=== PATIENT | female | born 1960 ===

== ENCOUNTER 2024-01-27 07:18 | Inpatient (IN) | payer MEDICARE, SELFPAY ==
[2024-01-27] VITALS (40 sets, daily range): BP systolic 96–160; BP diastolic 69–104; PULSE 100–126; TEMP 36.3–37.1; O2SAT 89–98; BMI 16.1; BMI 15.8
--- NOTE | 2024-01-27 07:20 | ECG_ITS ---
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
--- NOTE | 2024-01-27 07:26 | XR_ITS ---
[address] [address] Patient Name: LUCERO MAI MRN: [id number] date: 1960 Sex: F Assigned Patient Location: ER Current Patient Location: ED.MAIN Accession/Order Number: [id number] Exam Date: 01/27/2024 07:33 Report Date: 01/27/2024 07:59 At the request of: ARNOLD WISEMAN Procedure: XR chest 1V EXAM: XR chest 1V INDICATION: chest pain/SOB. COMPARISON: Chest radiograph 11/14/2023. TECHNIQUE: Single frontal view of the chest FINDINGS: Normal cardiomediastinal contours. Prominence of the pulmonary vasculature and interstitial markings. Mild bibasilar airspace opacities versus atelectasis. No pleural effusion or pneumothorax. No acute osseous abnormality. XR/XR chest 1V IMPRESSION: 1. Suspected mild pulmonary interstitial edema. 2. Mild bibasilar infiltrates versus atelectasis. Electronically authenticated by: GANGA BONE Date: 01/27/2024 07:59
--- NOTE | 2024-01-27 07:31 | ED.SOB1 ---
HPI - SOB/Dyspnea General Chief Complaint: Shortness of Breath/Dyspnea Stated Complaint: SOB Time Seen by Provider: 01/27/24 07:23 Source: patient Mode of arrival: ambulance Limitations: no limitations History of Present Illness HPI Narrative: This patient comes to us by paramedics from her assisted. They gave her breathing treatment and route because of planned shortness of breath. She was awake alert on arrival here and able to answer questions she seems cognizant and of fairly good historian. We will get records from her [facility] which is where she is most recently hospitalized. She has not been here before. She is DNR CC by the paramedics history. She does not use oxygen at home but has used and does use nebulizer treatments on a regular basis. She says she was treated years ago for thyroid cancer with radiation and surgery. She denies any history of heart attacks in the past. She says she is breathing little easier. She states that she had some chest discomfort earlier but it is gone now. She normally is not oxygen dependent. Related Data Home Medications ?Medication ?Instructions ?Recorded ?Confirmed albuterol sulfate 2.5 mg/3 mL 2.5 mg inhalation Q4H PRN 01/27/24 01/27/24 (0.083 %) solution for nebulization shortness of breath or wheezing cephalexin 500 mg capsule 500 mg PO BID 01/27/24 01/27/24 escitalopram oxalate 5 mg/5 mL 10 mg PO DAILY 01/27/24 01/27/24 oral solution levothyroxine 112 mcg tablet 112 mcg feeding tube DAILY 01/27/24 01/27/24 lorazepam 0.5 mg tablet 0.5 mg PO Q6H PRN anxiety 01/27/24 01/27/24 metoclopramide HCl 5 mg tablet 5 mg PO TID 01/27/24 01/27/24 mirtazapine 7.5 mg tablet 7.5 mg PO BEDTIME 01/27/24 01/27/24 ondansetron 4 mg disintegrating 4 mg PO Q8H PRN nausea and vomiting 01/27/24 01/27/24 tablet prednisone 20 mg tablet 5 mg feeding tube BEDTIME 01/27/24 01/27/24 prednisone 5 mg tablet 10 mg feeding tube DAILY 01/27/24 01/27/24 Allergies Allergy/AdvReac Type Severity Reaction Status Date / Time Sulfa (Sulfonamide Allergy Severe Unknown Verified 01/27/24 07:35 Antibiotics) lactose Allergy Unknown Rash Verified 01/27/24 07:34 oak Allergy Unknown Rash Verified 01/27/24 07:34 pollen extracts Allergy Unknown Rash Verified 01/27/24 07:34 [facility] Medical History (Updated 01/27/24 @ 10:21 by Murali Garcia MD) History of syncope ?Z87.898 - Personal history of other specified conditions (ICD-10) History of myocardial infarction ?I25.2 - Old myocardial infarction (ICD-10) Hx of hypotension ?Z86.79 - Personal history of other diseases of the circulatory system (ICD-10) Dysphagia, oropharyngeal phase ?R13.12 - Dysphagia, oropharyngeal phase (ICD-10) History of sarcoidosis ?Z86.2 - Personal history of diseases of the blood and blood-forming organs and certain disorders involving the immune mechanism (ICD-10) Hypothyroidism ?E03.9 - Hypothyroidism, unspecified (ICD-10) History of anxiety disorder ?Z86.59 - Personal history of other mental and behavioral disorders (ICD-10) Gastro-esophageal reflux ?K21.9 - Gastro-esophageal reflux disease without esophagitis (ICD-10) Dyskinesia of esophagus ?K22.4 - Dyskinesia of esophagus (ICD-10) History of thyroid cancer ?Z85.850 - Personal history of malignant neoplasm of thyroid (ICD-10) Gastroparesis ?K31.84 - Gastroparesis (ICD-10) Surgical History (Updated 01/27/24 @ 08:03 by Jose Ramirez) Hx of gastrostomy ?Z98.890 - Other specified postprocedural states (ICD-10) Exam Narrative Exam Narrative: This is an elderly female who appears older than stated age. However her cognition and mentation are actually intact. There is no evidence of confusion or altered mental status. Her vital signs do show a persistent tachycardia. Her pulse oximetry on supplemental oxygen remained stable at 94 to 96%. She states that she does not use oxygen at home but she does have a nebulizer machine at home that she uses in the past. She states that they were not giving her nebulizer treatments at the nursing care facility. She did receive a neb by the paramedics and route here. She is oriented x 3 cognition mental status cranial nerves are all normal. She is thin and cachectic. Her lungs show some scattered rhonchi with slight wheezing. Heart sounds are tachycardic with no murmur. Abdomen is soft and supple there is no guarding rebound or rigidity. Extremities show no evidence of DVT phlebitis edema or swelling. Constitutional Vital Signs, click to edit/add: Last Vital Signs Temp 98.8 F 01/27/24 07:21 Pulse 110 H 01/27/24 09:30 Resp 17 01/27/24 09:30 BP 159/99 H 01/27/24 09:30 Pulse Ox 96 01/27/24 09:53 O2 Del Method Nasal Cannula 01/27/24 09:53 O2 Flow Rate 2 01/27/24 09:53 Course Vital Signs Vital signs: Vital Signs Pulse Oximetry 96 01/27/24 07:20 Temperature 98.8 F 01/27/24 07:21 Pulse Rate 110 H 01/27/24 09:30 Respiratory Rate 17 01/27/24 09:30 Blood Pressure 159/99 H 01/27/24 09:30 Pulse Oximetry 96 01/27/24 09:53 Oxygen Delivery Method Nasal Cannula 01/27/24 09:53 Oxygen Delivery Flow Rate 2 01/27/24 09:53 MDM - SOB/Dyspnea MDM Narrative Medical decision making narrative: We did receive records from her previous admission in [place]. She was found to have orthostatic hypotension and severe hypothyroidism at that facility. Her chest x-ray today suggests infiltrative process in the bases but no lobar pneumonia. When we wean her off the oxygen her pulse oximetry rapidly drops down to 90% at which time we will reapply the oxygen. She was given intravenous Solu-Medrol here. Her white blood cell count is substantially elevated versus her last admission. We spoke with the hospitalist here and he will admit her and will write for antibiotics. Lab Data Labs: Lab Results 01/27/24 01/27/24 Range/Units 07:39 07:50 WBC 20.6 H (4.0-11.0) 10^3/uL RBC 3.92 L (4.20-5.40) 10^6/uL Hgb 11.2 L (12.0-16.0) g/dL Hct 33.7 L (36.0-48.0) % MCV 86.0 (81.0-99.0) fL MCH 28.6 (26.7-34.0) pg MCHC 33.2 (29.9-35.2) g/dL RDW 17.4 H (11.0-15.0) % Plt Count 348 (150-450) 10^3/uL MPV 9.4 L (9.5-13.5) fL Neut % (Auto) 86.0 H (43.0-75.0) % Lymph % (Auto) 6.7 L (20.5-60.0) % [place] % (Auto) 5.3 (1.7-12.0) % Eos % (Auto) 1.0 (0.9-7.0) % Baso % (Auto) 0.4 (0.2-2.0) % Neut # (Auto) 17.7 H (1.4-6.5) 10^3/uL Lymph # (Auto) 1.4 (1.2-3.8) 10^3/uL [place] # (Auto) 1.1 H (0.3-0.8) 10^3/uL Eos # (Auto) 0.2 (0.0-0.7) 10^3/uL Baso # (Auto) 0.1 (0.0-0.1) 10^3/uL Abs Immat Gran (auto) 0.12 H (0.00-0.03) 10^3/uL Imm/Tot Granulo (auto) 0.6 H (0.0-0.5) % Sodium 137 (136-145) mmol/L Potassium 4.0 (3.5-5.1) mmol/L Chloride 98 (98-107) mmol/L Carbon Dioxide 30.2 (21.0-32.0) mmol/L Anion Gap 12.8 BUN 24.0 H (7.0-18.0) mg/dL Creatinine 0.83 (0.55-1.02) mg/dL Est GFR ( Amer) >60 (>=60) Est GFR (Non-Af Amer) >60 (>=60) BUN/Creatinine Ratio 28.9 Glucose 89 (74-106) mg/dL Calcium 9.1 (8.5-10.1) mg/dL Total Bilirubin 0.6 (0.2-1.0) mg/dL AST 33 (15-37) U/L ALT 81 H (14-59) U/L Alkaline Phosphatase 158 H (46-116) U/L Troponin I High Sens 16.4 (4.0-51.3) pg/mL Total Protein 6.4 (6.4-8.2) g/dL Albumin 3.0 L (3.4-5.0) g/dL Globulin 3.4 g/dL Albumin/Globulin Ratio 0.9 Influenza Type A Ag Negative Influenza Type B Ag Negative RSV Antigen Not detected (NOT DETECTE) SARS-CoV-2 Ag (CV2AG) Negative (NEGATIVE) Discharge Plan Discharge Chief Complaint: Shortness of Breath/Dyspnea Clinical Impression: Acute infective exacerbation of chronic obstructive airway disease Patient Disposition: Admitted as Observation Time of Disposition Decision: 10:21 Prescriptions / Home Meds: No Action albuterol sulfate 2.5 mg /3 mL (0.083 %) solution for nebulization 2.5 mg inhalation Q4H PRN (Reason: shortness of breath or wheezing) lorazepam 0.5 mg tablet 0.5 mg PO Q6H PRN (Reason: anxiety) cephalexin 500 mg capsule 500 mg PO BID escitalopram oxalate 5 mg/5 mL solution 10 mg PO DAILY levothyroxine 112 mcg tablet 112 mcg feeding tube DAILY metoclopramide HCl 5 mg tablet 5 mg PO TID mirtazapine 7.5 mg tablet 7.5 mg PO BEDTIME ondansetron 4 mg tablet,disintegrating 4 mg PO Q8H PRN (Reason: nausea and vomiting) prednisone 5 mg tablet 10 mg feeding tube DAILY prednisone 20 mg tablet 5 mg feeding tube BEDTIME Print Language: Wolof Referrals: YANN BOYER [Primary Care Provider] - 1 week
[2024-01-27] MEDS: METHYLPREDNISOLONE SOD SUCC PF 125 MG/2 ML VIAL IVP ×3 (07:44→20:42)
[2024-01-27 08:18] LABS: Basophils Absolute Auto 0.1 10^3/uL (0.0-0.1); Basophils Percent Auto 0.4 % (0.2-2.0); Eosinophils Absolute Auto 0.2 10^3/uL (0.0-0.7); Hematocrit 33.7 % (36.0-48.0); Hemoglobin 11.2 g/dL (12.0-16.0); Immature Granulocytes Abs Auto 0.12 10^3/uL (0.00-0.03); Immature Granulocytes Pct Auto 0.6 % (0.0-0.5); Lymphocytes Absolute Auto 1.4 10^3/uL (1.2-3.8); Lymphocytes Percent Auto 6.7 % (20.5-60.0); Mean Corpuscular HGB Conc 33.2 g/dL (29.9-35.2); Mean Corpuscular Hemoglobin 28.6 pg (26.7-34.0); Mean Platelet Volume 9.4 fL (9.5-13.5); Monocytes Absolute Auto 1.1 10^3/uL (0.3-0.8); Monocytes Percent Auto 5.3 % (1.7-12.0); Neutrophils Absolute Auto 17.7 10^3/uL (1.4-6.5); Platelet Count 348 10^3/uL (150-450); Red Blood Count 3.92 10^6/uL (4.20-5.40); Red Cell Distribution Width 17.4 % (11.0-15.0); White Blood Count 20.6 10^3/uL (4.0-11.0)
[2024-01-27 08:19] LABS: Alanine Aminotransferase 81 U/L (14-59); Albumin Globulin Ratio 0.9; Alkaline Phosphatase 158 U/L (46-116); Anion Gap 12.8; Aspartate Amino Transferase 33 U/L (15-37); BUN Creatinine Ratio 28.9; Bilirubin Total 0.6 mg/dL (0.2-1.0); Calcium 9.1 mg/dL (8.5-10.1); Carbon Dioxide 30.2 mmol/L (21.0-32.0); Chloride 98 mmol/L (98-107); Estimated GFR (African America >60 (>=60); Estimated GFR (Non-African Ame >60 (>=60); Globulin 3.4 g/dL; Glucose 89 mg/dL (74-106); Sodium 137 mmol/L (136-145); Total Protein 6.4 g/dL (6.4-8.2)
[2024-01-27 08:22] LABS: Troponin I High Sensitivity 16.4 pg/mL (4.0-51.3)
[2024-01-27 08:37] LABS: Influenza Virus A Antigen Negative; Influenza Virus B Antigen Negative; Internal Control Within Normal Limits
[2024-01-27 08:38] LABS: Internal Control Within Normal Limits; Respiratory Syncytial Virus Not Detected (NOT DETECTE); SARS-CoV-2 Ag NEGATIVE (NEGATIVE)
[2024-01-27] MEDS: LORAZEPAM 2 MG/ML VIAL 0.5 MG IV (09:10)
--- NOTE | 2024-01-27 11:20 | US_ITS ---
[address] [address] Patient Name: LUCERO MAI MRN: [id number] date: 1960 Sex: F Assigned Patient Location: Current Patient Location: Accession/Order Number: [id number] Exam Date: 01/27/2024 15:09 Report Date: 01/27/2024 16:31 At the request of: ALBANIA FIELDS Procedure: US abdomen complete EXAM: US abdomen complete HISTORY: Abd Pain COMPARISON: 08/18/2017. TECHNIQUE: Ultrasound abdomen complete. FINDINGS: Hepatic echotexture is uniform. No focal hepatic lesions. Appropriate hepatopetal flow within the portal venous system. No biliary ductal dilatation. The common bile duct measures 3 mm in diameter. Prior cholecystectomy. Unremarkable pancreas. Normal appearance and size of the spleen. The right kidney measures 9.8 cm in length; left kidney measures 10.8 cm in length. No evidence of hydronephrosis or renal calculus. Unremarkable appearance of the visualized aspects of the abdominal aorta and inferior vena cava. US/US abdomen complete IMPRESSION: 1. Prior cholecystectomy. 2. Otherwise unremarkable abdominal sonogram. Electronically authenticated by: CHINEDU CINTRON Date: 01/27/2024 16:31
--- NOTE | 2024-01-27 11:27 | P.HP_ITS ---
HPI H&P: HPI History of Present Illness Chief complaint: SOB, ACUTE INFECTIVE, COPD EXACERBATION Narrative: Patient presented to the emergency with increasing cough and shortness of breath. Trying to obtain the full history but it sounds like she was at a intermediate for rehab. Recently discharged from outside facility. Found to have severe hypothyroidism there. Over the last couple days she has had increasing cough with sputum production. Patient had significant hypoxia at the intermediate. Presented here. With likely acute exacerbation of COPD likely secondary to healthcare acquired pneumonia. When I saw patient in the emergency room, she was sleeping better awakened easily. Definitely uncomfortable with her breathing with conversational dyspnea. Audible wheezes without a stethoscope. Moist cough throughout the evaluation. Opioid HPI Opioid Management Most Recent Pain and Opioid Data: No Data to Display Review of Systems ROS Status of ROS 10 or more systems reviewed and unremark able except as noted in history and below Constitutional Denies: fever or chills Respiratory Reports: shortness of breath, cough, wheezing, change in phlegm color and chest congestion [facility] Medical History (Updated 01/27/24 @ 10:21 by Murali Garcia MD) History of syncope ?Z87.898 - Personal history of other specified conditions (ICD-10) History of myocardial infarction ?I25.2 - Old myocardial infarction (ICD-10) Hx of hypotension ?Z86.79 - Personal history of other diseases of the circulatory system (ICD- 10) Dysphagia, oropharyngeal phase ?R13.12 - Dysphagia, oropharyngeal phase (ICD-10) History of sarcoidosis ?Z86.2 - Personal history of diseases of the blood and blood-forming organs and certain disorders involving the immune mechanism (ICD-10) Hypothyroidism ?E03.9 - Hypothyroidism, unspecified (ICD-10) History of anxiety disorder ?Z86.59 - Personal history of other mental and behavioral disorders (ICD-10) Gastro-esophageal reflux ?K21.9 - Gastro-esophageal reflux disease without esophagitis (ICD-10) Dyskinesia of esophagus ?K22.4 - Dyskinesia of esophagus (ICD-10) History of thyroid cancer ?Z85.850 - Personal history of malignant neoplasm of thyroid (ICD-10) Gastroparesis ?K31.84 - Gastroparesis (ICD-10) Surgical History (Updated 01/27/24 @ 08:03 by Jose Ramirez) Hx of gastrostomy ?Z98.890 - Other specified postprocedural states (ICD-10) Meds Home Medications and Allergies Home Medications ?Medication ?Instructions ?Recorded ?Confirmed ?Type albuterol sulfate 2.5 mg/3 mL 2.5 mg inhalation Q4H PRN 01/27/24 01/27/24 History (0.083 %) solution for nebulization shortness of breath or wheezing cephalexin 500 mg capsule 500 mg PO BID 01/27/24 01/27/24 History escitalopram oxalate 5 mg/5 mL 10 mg PO DAILY 01/27/24 01/27/24 History oral solution levothyroxine 112 mcg tablet 112 mcg feeding tube DAILY 01/27/24 01/27/24 History lorazepam 0.5 mg tablet 0.5 mg PO Q6H PRN anxiety 01/27/24 01/27/24 History metoclopramide HCl 5 mg tablet 5 mg PO TID 01/27/24 01/27/24 History mirtazapine 7.5 mg tablet 7.5 mg PO BEDTIME 01/27/24 01/27/24 History ondansetron 4 mg disintegrating 4 mg PO Q8H PRN nausea and vomiting 01/27/24 01/27/24 History tablet prednisone 20 mg tablet 5 mg feeding tube BEDTIME 01/27/24 01/27/24 History prednisone 5 mg tablet 10 mg feeding tube DAILY 01/27/24 01/27/24 History Allergies Allergy/AdvReac Type Severity Reaction Status Date / Time Sulfa (Sulfonamide Allergy Severe Unknown Verified 01/27/24 07:35 Antibiotics) lactose Allergy Unknown Rash Verified 01/27/24 07:34 oak Allergy Unknown Rash Verified 01/27/24 07:34 pollen extracts Allergy Unknown Rash Verified 01/27/24 07:34 Exam Constitutional Vital Signs, click to edit/add: Last Vital Signs Temp 98.8 F 01/27/24 07:21 Pulse 108 H 08/31/24 11:10 Resp 21 H 01/27/24 11:10 BP 131/96 H 01/27/24 11:00 Pulse Ox 95 01/27/24 11:10 O2 Del Method Nasal Cannula 01/27/24 09:53 O2 Flow Rate 2 01/27/24 09:53 Documenting provider has reviewed patient's vital signs: yes Common normals: apparent distress (Moderate distress secondary to difficulty breathing) Cardio Common normals: regular rhythm; irregular rate Rate: tachycardic GI Common normals: negative for Normal to inspection, nondistended, normoactive bowel sounds present (Feeding tube in place) Extremity Common normals: full ROM, normal capillary refill, no clubbing, cyanosis or edema and no calf tenderness Results Labs Labs: Short CBC 01/27/24 Range/Units 07:50 WBC 20.6 H (4.0-11.0) 10^3/uL Hgb 11.2 L (12.0-16.0) g/dL Hct 33.7 L (36.0-48.0) % Plt Count 348 (150-450) 10^3/uL BMP 01/27/24 07:50 Sodium 137 Potassium 4.0 Chloride 98 Carbon Dioxide 30.2 BUN 24.0 H Creatinine 0.83 Glucose 89 Calcium 9.1 Liver Function 01/27/24 Range/Units 07:50 Total Bilirubin 0.6 (0.2-1.0) mg/dL AST 33 (15-37) U/L ALT 81 H (14-59) U/L Alkaline Phosphatase 158 H (46-116) U/L Albumin 3.0 L (3.4-5.0) g/dL Assessment and Plan Assessment and Plan (1) Acute infective exacerbation of chronic obstructive airway disease: (2) History of myocardial infarction: (3) Hx of hypotension: (4) Dysphagia, oropharyngeal phase: (5) Hypothyroidism: (6) Gastro-esophageal reflux: (7) History of thyroid cancer: Plan Admission findings: Tachycardia, respiratory distress, acute hypoxia with O2 saturation of 89% on 2 L. Hypotension with blood pressure 96/69, leukocytosis, chest x-ray abnormal with bilateral infiltrates in the lower lobes. Consistent with possible early pneumonia causing acute exacerbation of COPD and severe sepsis. Severe sepsis-tachycardia, respiratory distress, hypoxia, leukocytosis-lactate pending, secondary to acute exacerbation of COPD secondary to healthcare acquired bilateral lower lobe pneumonia. IV antibiotics, aerosol treatments. Unable to use albuterol, Xopenex secondary to tachycardia. Vancomycin and Zosyn for antibiotic coverage Leukocytosis-is likely secondary to the pneumonia as outlined above monitor daily Elevated BUN consistent with mild dehydration-IV fluids Elevated liver function test-this is likely related to her overall generalized illness. Will monitor daily. History of thyroid cancer unable to swallow and decrease gastric motility-currently has feeding tube in place, will maintain current recommendations for her tube feeds. Consult to dietitian Iron deficiency anemia-monitor daily. Concerning at this point due to mild dehydration, will likely have decreasing hemoglobin significantly tomorrow. Held off on medication related thromboembolism prophylaxis Elevated liver function test-check ultrasound of abdomen Hypothyroidism-check TSH. With tachycardia likely related to the sepsis, could not rule out thyroid induced tachycardia as well Insomnia-continue with home medications CODE STATUS-verbal report of DNR-cc-will verify later today. Admission status: Patient with healthcare acquired pneumonia resulting in severe sepsis and acute exacerbation of COPD-medically necessary treatment will span 2 midnights. Inpatient status.
[2024-01-27 11:44] LABS: Bilirubin Urine NEGATIVE (NEGATIVE); Blood Urine NEGATIVE (NEGATIVE); Clarity Urine CLEAR (CLEAR); Color Urine LT. YELLOW (YELLOW); Glucose Urine UA NEGATIVE (NEGATIVE); Ketones Urine NEGATIVE (NEGATIVE); Leukocyte Esterase Urine SMALL (NEGATIVE); Nitrite Urine NEGATIVE (NEGATIVE); Protein Urine NEGATIVE (NEG/TRACE)
[2024-01-27 11:50] LABS: Bacteria Urine MODERATE #/HPF (NONE SEEN); Mucus Urine TRACE (NONE SEEN); RBC Urine NONE SEEN #/HPF (0-2); Squamous Epithelial Cell Urine RARE #/LPF (NONE/RARE); Transitional Epi Cells Urine RARE #/LPF (NONE SEEN)
[2024-01-27 11:51] LABS: Cast Seen? NONE SEEN #/LPF (NONE SEEN); Crystals Seen? None Seen #/HPF (None Seen); Urine Culture Indicated ALREADY ORDERED
[2024-01-27 12:15] LABS: Magnesium 2.1 mg/dL (1.8-2.4)
[2024-01-27 12:25] LABS: Lactate/Lactic Acid 1.8 mmol/L (0.4-2.0)
[2024-01-27] MEDS: LACTATED RINGER'S SOLUTION 1,000 ML 100 ML IV (14:10)
[2024-01-27] MEDS: PANTOPRAZOLE SODIUM 40 MG VIAL IV (14:10)
[2024-01-27] MEDS: PIPERACILLIN SODIUM/TAZOBACTAM 3.375 GM in 0.9 % SODIUM CHLORIDE 50 ML IV ×2 (15:37→22:17)
--- NOTE | 2024-01-27 15:48 | PC.NURSE ---
Jazmyn Rivera called [facility] earlier and they faxed over the patients med rec but it was missing pages. They never sent over the patients DRNCCA form. Engine Oiler has attempted to call [facility] twice to get the missing medication list to be able to start the patient's tube feed and to get the DRNCCA form. They are not answering and it says their memory is full.
[2024-01-27] MEDS: IPRATROPIUM BROMIDE 0.5 MG/2.5 ML VIAL.NEB IH ×2 (16:17→22:15)
[2024-01-27] MEDS: LEVALBUTEROL HCL 0.63 MG/3 ML VIAL.NEB IH ×2 (16:17→22:15)
[2024-01-27] MEDS: METOCLOPRAMIDE HCL 10 MG TABLET J-TUBE ×2 (16:26→22:17)
[2024-01-27] MEDS: ONDANSETRON PF 4 MG/2 ML VIAL IV (17:17)
[2024-01-27] MEDS: LORAZEPAM 0.5 MG TABLET PO ×2 (17:25→23:52)
[2024-01-27] MEDS: VANCOMYCIN HCL 750 MG in 0.9 % SODIUM CHLORIDE 250 ML 150 MG IV (20:42)
[2024-01-27] MEDS: BUDESONIDE 0.5 MG/2 ML AMPULE NEB IH (22:15)
[2024-01-27] MEDS: MIRTAZAPINE 15 MG TABLET 7.5 MG PO (22:17)
[2024-01-28] VITALS (24 sets, daily range): BP systolic 136–180; BP diastolic 48–100; PULSE 99–119; TEMP 36.4–36.6; O2SAT 91–96
[2024-01-28] MEDS: LACTATED RINGER'S SOLUTION 1,000 ML 100 ML IV ×2 (01:19→08:59)
[2024-01-28] MEDS: METHYLPREDNISOLONE SOD SUCC PF 125 MG/2 ML VIAL IVP ×2 (02:12→08:59)
[2024-01-28] MEDS: HYDRALAZINE HCL 20 MG/ML VIAL 10 MG IVP ×2 (03:46→23:56)
[2024-01-28] MEDS: IPRATROPIUM BROMIDE 0.5 MG/2.5 ML VIAL.NEB IH ×4 (04:55→23:00)
[2024-01-28] MEDS: LEVALBUTEROL HCL 0.63 MG/3 ML VIAL.NEB IH ×4 (04:55→23:00)
[2024-01-28] MEDS: PIPERACILLIN SODIUM/TAZOBACTAM 3.375 GM in 0.9 % SODIUM CHLORIDE 50 ML IV ×3 (05:09→23:06)
[2024-01-28 06:15] LABS: Basophils Percent Auto 0.2 % (0.2-2.0); Hematocrit 29.7 % (36.0-48.0); Hemoglobin 9.9 g/dL (12.0-16.0); Immature Granulocytes Abs Auto 0.22 10^3/uL (0.00-0.03); Immature Granulocytes Pct Auto 1.1 % (0.0-0.5); Lymphocytes Absolute Auto 0.5 10^3/uL (1.2-3.8); Lymphocytes Percent Auto 2.5 % (20.5-60.0); Mean Corpuscular HGB Conc 33.3 g/dL (29.9-35.2); Mean Corpuscular Hemoglobin 28.6 pg (26.7-34.0); Mean Corpuscular Volume 85.8 fL (81.0-99.0); Mean Platelet Volume 9.3 fL (9.5-13.5); Monocytes Absolute Auto 0.5 10^3/uL (0.3-0.8); Monocytes Percent Auto 2.3 % (1.7-12.0); Neutrophils Absolute Auto 18.8 10^3/uL (1.4-6.5); Neutrophils Percent Auto 93.9 % (43.0-75.0); Platelet Count 307 10^3/uL (150-450); Red Blood Count 3.46 10^6/uL (4.20-5.40); Red Cell Distribution Width 17.2 % (11.0-15.0)
[2024-01-28 06:32] LABS: Alanine Aminotransferase 58 U/L (14-59); Albumin Globulin Ratio 0.8; Albumin Level 2.5 g/dL (3.4-5.0); Alkaline Phosphatase 141 U/L (46-116); Anion Gap 12.4; Aspartate Amino Transferase 20 U/L (15-37); BUN Creatinine Ratio 30.7; Bilirubin Total 0.5 mg/dL (0.2-1.0); Calcium 8.9 mg/dL (8.5-10.1); Carbon Dioxide 28.6 mmol/L (21.0-32.0); Chloride 101 mmol/L (98-107); Estimated GFR (African America >60 (>=60); Estimated GFR (Non-African Ame >60 (>=60); Globulin 3.3 g/dL; Glucose 148 mg/dL (74-106); Sodium 138 mmol/L (136-145); Total Protein 5.8 g/dL (6.4-8.2)
[2024-01-28 08:19] LABS: Free T3 0.64 pg/mL (2.18-3.98)
[2024-01-28] MEDS: VANCOMYCIN HCL 750 MG in 0.9 % SODIUM CHLORIDE 250 ML 250 MG IV ×2 (08:59→22:01)
[2024-01-28] MEDS: ACETAMINOPHEN 500 MG TABLET 1000 MG PO ×2 (09:00→18:54)
[2024-01-28] MEDS: LORAZEPAM 0.5 MG TABLET PO ×3 (09:00→23:01)
[2024-01-28] MEDS: METOCLOPRAMIDE HCL 10 MG TABLET J-TUBE ×4 (09:00→21:39)
[2024-01-28] MEDS: ESCITALOPRAM 10 MG TABLET J-TUBE (09:00)
[2024-01-28] MEDS: GLUCERNA 1.5 CAL 237 ML LIQUID PO ×3 (09:00→18:55)
--- NOTE | 2024-01-28 09:57 | P.DS_ITS ---
DS: Providers Provider Date of admission: 01/27/24 11:21 Primary care physician: YANN BOYER Consults: 01/27/24 Consult to Dietitian Routine Reason for consultation: Poor nutrition 01/27/24 11:15 Consult to Dietitian Routine Reason for consultation: tube feeds Has provider been notified: No Occupational Therapy Eval and Treat Routine Reason for consultation: Only if needed for Rehab Has provider been notified: No Physical Therapy Eval and Treat Routine Reason for consultation: Eval and Treat Has provider been notified: No DS: Diagnosis Discharge Diagnosis (1) Acute infective exacerbation of chronic obstructive airway disease: (2) History of myocardial infarction: (3) Hx of hypotension: (4) Dysphagia, oropharyngeal phase: (5) Hypothyroidism: (6) Gastro-esophageal reflux: (7) History of thyroid cancer: Plan Admission findings: Tachycardia, respiratory distress, acute hypoxia with O2 saturation of 89% on 2 L. Hypotension with blood pressure 96/69, leukocytosis, chest x-ray abnormal with bilateral infiltrates in the lower lobes. Consistent with possible early pneumonia causing acute exacerbation of COPD and severe sepsis. Severe sepsis-tachycardia, respiratory distress, hypoxia, leukocytosis-lactate pending, secondary to acute exacerbation of COPD secondary to healthcare acquired bilateral lower lobe pneumonia. IV antibiotics, aerosol treatments. Unable to use albuterol, Xopenex secondary to tachycardia. Vancomycin and Zosyn for antibiotic coverage Leukocytosis-is likely secondary to the pneumonia as outlined above monitor daily Elevated BUN consistent with mild dehydration-IV fluids Elevated liver function test-this is likely related to her overall generalized illness. Will monitor daily. History of thyroid cancer unable to swallow and decrease gastric motility- currently has feeding tube in place, will maintain current recommendations for her tube feeds. Consult to dietitian Iron deficiency anemia-monitor daily. Concerning at this point due to mild dehydration, will likely have decreasing hemoglobin significantly tomorrow. Held off on medication related thromboembolism prophylaxis Elevated liver function test-check ultrasound of abdomen Hypothyroidism-check TSH. With tachycardia likely related to the sepsis, could not rule out thyroid induced tachycardia as well Insomnia-continue with home medications CODE STATUS-verbal report of DNR-cc-will verify later today. Admission status: Patient with healthcare acquired pneumonia resulting in severe sepsis and acute exacerbation of COPD-medically necessary treatment will span 2 midnights. Inpatient status. ? DS: Summary Time Spent with Patient Time attestation: Total time spent providing and/or coordinating discharge services: Exam Constitutional Vital Signs, click to edit/add: Last Vital Signs Temp 97.5 F L 01/28/24 07:41 Pulse 114 H 01/28/24 08:32 Resp 18 01/28/24 07:41 BP 137/85 01/28/24 07:41 Pulse Ox 94 L 01/28/24 07:41 O2 Del Method Room Air 01/28/24 07:41 O2 Flow Rate 1.5 01/28/24 04:58 DS: Data Data Completed and Pending Labs on day of discharge: Labs from last 24 hours 01/28/24 01/27/24 01/27/24 06:07 11:54 10:10 WBC 20.0 H RBC 3.46 L Hgb 9.9 L Hct 29.7 L MCV 85.8 MCH 28.6 MCHC 33.3 RDW 17.2 H Plt Count 307 MPV 9.3 L Neut % (Auto) 93.9 H Lymph % (Auto) 2.5 L [place] % (Auto) 2.3 Eos % (Auto) 0.0 L Baso % (Auto) 0.2 Neut # (Auto) 18.8 H Lymph # (Auto) 0.5 L [place] # (Auto) 0.5 Eos # (Auto) 0.0 Baso # (Auto) 0.0 Abs Immat Gran (auto) 0.22 H Imm/Tot Granulo (auto) 1.1 H Sodium 138 Potassium 4.0 Chloride 101 Carbon Dioxide 28.6 Anion Gap 12.4 BUN 23.0 H Creatinine 0.75 Est GFR ( Amer) >60 Est GFR (Non-Af Amer) >60 BUN/Creatinine Ratio 30.7 Glucose 148 H Lactate 1.8 Calcium 8.9 Magnesium 2.1 Total Bilirubin 0.5 AST 20 ALT 58 Alkaline Phosphatase 141 H Troponin I High Sens 8.0 NT-Pro-B Natriuret Pep 1319.0 H* 1710.0 H* Total Protein 5.8 L Albumin 2.5 L Globulin 3.3 Albumin/Globulin Ratio 0.8 TSH 12.690 H Thyroxine (T4) 4.70 L Free T3 0.64 L Urine Color Lt. yellow Urine Clarity Clear Urine pH 8.0 Ur Specific [place] 1.010 Urine Protein Negative Urine Glucose (UA) Negative Urine Ketones Negative Urine Occult Blood Negative Urine Nitrite Negative Urine Bilirubin Negative Urine Urobilinogen 1.0 Ur Leukocyte Esterase Small A Urine RBC None seen Urine WBC 2-5 A Ur Squamous Epith Cells Rare Ur Transition Epith Cell Rare A Urine Crystals None seen Urine Bacteria Moderate A Urine Casts None seen Urine Mucus Trace A Ur Culture Indicated? Already ordered Discharge Plan Discharge Discharge Medications: No Action albuterol sulfate 2.5 mg /3 mL (0.083 %) solution for nebulization 2.5 mg inhalation Q4H PRN (Reason: shortness of breath or wheezing) lorazepam 0.5 mg tablet 0.5 mg PO Q6H PRN (Reason: anxiety) cephalexin 500 mg capsule 500 mg PO BID Patient Comments: 01/23/24--07-22 J-TUBE INFECTION escitalopram oxalate 5 mg/5 mL solution 10 mg feeding tube DAILY levothyroxine 112 mcg tablet 112 mcg feeding tube DAILY metoclopramide HCl 5 mg tablet 10 mg feeding tube ACHS mirtazapine 7.5 mg tablet 7.5 mg feeding tube BEDTIME ondansetron 4 mg tablet,disintegrating 4 mg PO Q8H PRN (Reason: nausea and vomiting) prednisone 5 mg tablet 5 mg feeding tube .QHS cetirizine 5 mg tablet 5 mg feeding tube Q12H PRN (Reason: allergy symptoms) bisacodyl 10 mg suppository 10 mg NH DAILY PRN (Reason: constipation) ibuprofen 600 mg tablet 600 mg PO Q6H PRN (Reason: pain) midodrine 5 mg tablet 5 mg feeding tube TID Rx Instructions: do not give last dose of day after 6PM or within 4 hrs of bedtime prednisone 10 mg tablet 10 mg PO DAILY prochlorperazine maleate [Compazine] 5 mg tablet 5 mg PO Q6H PRN (Reason: nausea and vomiting) acetaminophen 325 mg tablet 650 mg PO Q6H PRN (Reason: pain) lidocaine HCl 2 % gel 1 applic topical Q4H PRN (Reason: pain) Rx Instructions: ON J-TUBE SITE Print Language: Grenadian
--- NOTE | 2024-01-28 09:57 | P.PN_ITS ---
Progress Note: Subjective Subjective Interval history: I saw patient up on the medical surgical floor, she was somewhat anxious in bed, having a coughing episode difficulty clearing the mucus. She was attempting to eat her pur?ed diet this morning. Has been worse every time she tries to eat Exam Constitutional Vital Signs, click to edit/add: Last Vital Signs Temp 97.5 F L 01/28/24 07:41 Pulse 114 H 01/28/24 08:32 Resp 18 01/28/24 07:41 BP 137/85 01/28/24 07:41 Pulse Ox 94 L 01/28/24 07:41 O2 Del Method Room Air 01/28/24 07:41 O2 Flow Rate 1.5 01/28/24 04:58 Documenting provider has reviewed patient's vital signs: yes Common normals: apparent distress (Moderate distress secondary to difficulty breathing) Respiratory Common normals: abnormal respiratory effort (Moderate respiratory distress with moderate conversational dyspnea) and not clear to ascultation bilaterally Effort & inspection: tachypneic and prolonged expiratory phase Auscultation: rhonchi (Better air changed today than yesterday), wheezes and diminished lung sounds Cardio Common normals: regular rhythm; irregular rate Rate: tachycardic GI Common normals: negative for Normal to inspection, nondistended, normoactive bowel sounds present (Feeding tube in place) Extremity Common normals: full ROM, normal capillary refill, no clubbing, cyanosis or edema and no calf tenderness Progress Note: Objective Labs Labs: Short CBC 01/28/24 Range/Units 06:07 WBC 20.0 H (4.0-11.0) 10^3/uL Hgb 9.9 L (12.0-16.0) g/dL Hct 29.7 L (36.0-48.0) % Plt Count 307 (150-450) 10^3/uL BMP 01/28/24 06:07 Sodium 138 Potassium 4.0 Chloride 101 Carbon Dioxide 28.6 BUN 23.0 H Creatinine 0.75 Glucose 148 H Calcium 8.9 Liver Function 01/28/24 Range/Units 06:07 Total Bilirubin 0.5 (0.2-1.0) mg/dL AST 20 (15-37) U/L ALT 58 (14-59) U/L Alkaline Phosphatase 141 H (46-116) U/L Albumin 2.5 L (3.4-5.0) g/dL Urine 01/27/24 Range/Units 10:10 Urine Color Lt. yellow (YELLOW) Urine Clarity Clear (CLEAR) Urine pH 8.0 (5.0-9.0) Ur Specific [place] 1.010 (1.005-1.025) Urine Protein Negative (NEG/TRACE) mg/dL Urine Glucose (UA) Negative (NEGATIVE) mg/dL Progress Note: A&P Assessment and Plan (1) Acute infective exacerbation of chronic obstructive airway disease: (2) History of myocardial infarction: (3) Hx of hypotension: (4) Dysphagia, oropharyngeal phase: (5) Hypothyroidism: (6) Gastro-esophageal reflux: (7) History of thyroid cancer: Plan Admission findings: Tachycardia, respiratory distress, acute hypoxia with O2 saturation of 89% on 2 L. Hypotension with blood pressure 96/69, leukocytosis, chest x-ray abnormal with bilateral infiltrates in the lower lobes. Consistent with possible early pneumonia causing acute exacerbation of COPD and severe sepsis. Severe sepsis-tachycardia, respiratory distress, hypoxia, leukocytosis-lactate pending, secondary to acute exacerbation of COPD secondary to healthcare acquired bilateral lower lobe pneumonia. Overall somewhat improved today although white blood cell count is persistently elevated. Maintain current antibiotics his lungs do sound improved. Leukocytosis-is likely secondary to the pneumonia as outlined above monitor syed johnson-stable unfortunately not improved Elevated BUN consistent with mild dehydration-IV fluids-maintain these. BUN is improved though Elevated liver function test-this is likely related to her overall generalized illness. Will monitor daily. History of thyroid cancer unable to swallow and decrease gastric motility- continuous tube feeds, will make patient n.p.o., high aspiration risk Iron deficiency anemia-monitor daily. Concerning at this point due to mild dehydration, will likely have decreasing hemoglobin significantly tomorrow. Held off on medication related thromboembolism prophylaxis Elevated liver function test-ultrasound of abdomen negative Hypothyroidism-check TSH. With tachycardia likely related to the sepsis, could not rule out thyroid induced tachycardia as well will check on levels today Insomnia-continue with home medications CODE STATUS-verbal report of DNR-cc-will verify later today. Essential tremor-we will add [place] Admission status: Patient with healthcare acquired pneumonia resulting in severe sepsis and acute exacerbation of COPD-medically necessary treatment will span 2 midnights. Inpatient status. ?
[2024-01-28] MEDS: BUDESONIDE 0.5 MG/2 ML AMPULE NEB IH ×2 (10:52→23:00)
[2024-01-28] MEDS: PRIMIDONE 50 MG TABLET J-TUBE ×2 (13:22→21:39)
[2024-01-28] MEDS: GUAIFENESIN 200 MG/10 ML LIQUID 400 MG J-TUBE ×3 (13:22→23:50)
[2024-01-28] MEDS: METHYLPREDNISOLONE SOD SUCC PF 125 MG/2 ML VIAL 60 MG IVP ×2 (13:47→21:32)
[2024-01-28] MEDS: PANTOPRAZOLE SODIUM 40 MG VIAL IV (13:47)
[2024-01-28] MEDS: MIRTAZAPINE 15 MG TABLET 7.5 MG PO (21:39)
--- NOTE | 2024-01-28 23:52 | PC.NURSE ---
Changed dressing to Pegtube and Jtube. First cleaned with sterile water and patted dry. Drainage noted to both dressings
[2024-01-29] VITALS (11 sets, daily range): BP systolic 124–188; BP diastolic 78–100; PULSE 82–113; TEMP 36.4–36.6; O2SAT 94–96
[2024-01-29] MEDS: METHYLPREDNISOLONE SOD SUCC PF 125 MG/2 ML VIAL 60 MG IVP ×2 (02:03→09:40)
[2024-01-29] MEDS: HYDRALAZINE HCL 20 MG/ML VIAL 10 MG IVP (04:18)
[2024-01-29] MEDS: ACETAMINOPHEN 500 MG TABLET 1000 MG PO ×2 (04:18→11:17)
[2024-01-29] MEDS: LACTATED RINGER'S SOLUTION 1,000 ML 100 ML IV (04:31)
[2024-01-29] MEDS: PIPERACILLIN SODIUM/TAZOBACTAM 3.375 GM in 0.9 % SODIUM CHLORIDE 50 ML IV (05:18)
[2024-01-29] MEDS: GUAIFENESIN 200 MG/10 ML LIQUID 400 MG J-TUBE ×2 (05:19→11:18)
[2024-01-29] MEDS: LORAZEPAM 0.5 MG TABLET PO ×2 (05:19→11:18)
[2024-01-29] MEDS: LEVOTHYROXINE SODIUM 112 MCG TABLET J-TUBE (05:52)
[2024-01-29] MEDS: ESCITALOPRAM 10 MG TABLET J-TUBE (05:52)
[2024-01-29] MEDS: PRIMIDONE 50 MG TABLET J-TUBE ×2 (05:53→08:37)
[2024-01-29 06:28] LABS: Hematocrit 27.8 % (36.0-48.0); Hemoglobin 8.9 g/dL (12.0-16.0); Mean Corpuscular Hemoglobin 28.3 pg (26.7-34.0); Mean Corpuscular Volume 88.5 fL (81.0-99.0); Mean Platelet Volume 9.2 fL (9.5-13.5); Platelet Count 286 10^3/uL (150-450); Red Blood Count 3.14 10^6/uL (4.20-5.40); Red Cell Distribution Width 17.5 % (11.0-15.0); White Blood Count 21.9 10^3/uL (4.0-11.0)
[2024-01-29 06:52] LABS: Lymphocytes Absolute Manual 1.31 10^3/uL (1.20-3.80); Monocytes Absolute Manual 0.43 10^3/uL (0.30-0.80); Segmented Neut Absolute Manual 20.14 10^3/uL (1.4-6.5)
[2024-01-29 06:54] LABS: Alanine Aminotransferase 52 U/L (14-59); Albumin Globulin Ratio 0.8; Albumin Level 2.4 g/dL (3.4-5.0); Alkaline Phosphatase 120 U/L (46-116); Anion Gap 12.1; Aspartate Amino Transferase 16 U/L (15-37); BUN Creatinine Ratio 35.8; Bilirubin Total 0.5 mg/dL (0.2-1.0); Calcium 8.3 mg/dL (8.5-10.1); Carbon Dioxide 28.6 mmol/L (21.0-32.0); Chloride 99 mmol/L (98-107); Estimated GFR (African America >60 (>=60); Estimated GFR (Non-African Ame >60 (>=60); Globulin 2.9 g/dL; Glucose 123 mg/dL (74-106); Potassium 3.7 mmol/L (3.5-5.1); Sodium 136 mmol/L (136-145); Total Protein 5.3 g/dL (6.4-8.2)
[2024-01-29] MEDS: METOCLOPRAMIDE HCL 10 MG TABLET J-TUBE ×2 (08:36→11:17)
[2024-01-29] MEDS: GLUCERNA 1.5 CAL 237 ML LIQUID PO (08:36)
[2024-01-29] MEDS: METOPROLOL TARTRATE 25 MG TABLET J-TUBE (08:37)
[2024-01-29] MEDS: LIOTHYRONINE SODIUM 5 MCG TABLET 10 MCG J-TUBE (08:46)
--- OUTSIDE RECORDS SUMMARY | 2024-01-29 09:07 | XMS_ITS | CCD ---
Author Organization [facility] Care Team Providers Care Automotive Electrician Name Role Phone CATHLEEN SALAS Unavailable Unavailable CATHLEEN SALAS Unavailable Unavailable Miko RIVERA, Yolie Unavailable Josh HORNE, Diego Unavailable Milton Mancini MD Primary Care Provider Alicia Worley RN Unavailable Unavailable Oralia RIVERA, Annette Unavailable Dori Borja RN Unavailable Unavail able Yolie Crouch RN Unavailable Josh HORNE, Diego Unavailable Addis HORNE, Milton Daugherty Primary Care Provider Annette Barton RN Unavailable Dori Borja RN Unavailable Unavail able Yolie Crouch RN Unavailable Addis HORNE, Milton Daugherty Primary Care Provider Annette Barton RN Unavailable Mario Melton RN Unavailable Unavailable Yolie Crouch RN Unavailable Annette Barton RN Unavailable Mario Melton RN Unavailable Unavailable DO John Mendes Primary Care Provider [phone] MD Chinedu Mena Jr Emergency Provider DO John Mendes Attending Provider [phone] Chinedu Mena Jr Attending Unavailable John Mendes Primary Care Unavailable Chinedu Mena Jr Admitting Unavailable House, John Primary Care Unavailable House, John Admitting Unavailable House, John Attending Unavailable YOLANDA HANNA Attending Unavailable JOURDAN GONZALEZ Admitting Unavailable HOUSE SR, JOHN P Primary Care Unavailable ZENAIDA ATKINS Consulting Unavailable NATHAN SEALS Consulting Unavailable House Sr., DO, John P Primary Care Provider House Sr., John RITTER P Primary Care Provider Miko RIVERA, Yolie Unavailable Addis HORNE, Milton Daugherty Primary Care Provider Oralia RIVERA, Annette Unavailable HOUSE SR, JOHN P Primary Care Unavailable LEONARD MCKEON Attending Unavailable LEONARD MCKEON Admitting Unavailable HOUSE SR, JOHN P Primary Care Unavailable CADIGAN, MILTON DAUGHERTY Primary Care Unavailab le KWESI, NATALIA Referring Unavailable KWESI, NATALIA Attending Unavailable CARRIE PENNINGTON Attending Unavailable HOUSE SR, JOHN P Primary Care Unavailable ANA, ICELANDIC Referring Unavailable CADIGAN, MILTON WILLOW Primary Care Unavailab le KWESI, NATALIA Referring Unavailable CADIGAN, MILTON WILLOW Primary Care Unavailab le KWESI, NATALIA Referring Unavailable SHARRI CONTEH Attending Unavailable VICTORIANOIGAN, MILTON WILLOW Primary Care Unavailab le HOUSE SR, JOHN P Primary Care Unavailable SMITHA GRAMAJO Referring Unavailable HOUSE SR, JOHN P Primary Care Unavailable JIM BRANDT Referring Unavailable HOUSE SR, JOHN P Primary Care Unavailable JIM BRANDT Referring Unavailable HOUSE SR, JOHN P Primary Care Unavailable ANA, ICELANDIC Referring Unavailable ANA, ICELANDIC Attending Unavailable HOUSE SR, JOHN P Primary Care Unavailable ANA, ICELANDIC Referring Unavailable HOUSE SR, JOHN P Primary Care Unavailable BENNY GILL Referring Unavailable PENG MEJÍA Attending Unavailable KASSAY, CAROL Referring Unavailable LEOBARDO, BONY Admitting Unavailable HEATHER, KHAI Attending Unavailable [facility], MILTON WILLOW Primary Care Unavailab le KASSAY, CAROL Referring Unavailable LEOBARDO, BONY Admitting Unavailable HEATHER, KHAI Attending Unavailable ADDIS, MILTON WILLOW Primary Care Unavailab HANNA Mesa Attending Unavaila ble CADROGERS, MILTON WILLOW Primary Care Unavailab le KWESI, NATALIA Referring Unavailable CADIGAN, MILTON WILLOW Primary Care Unavailab le KWESI, NATALIA Referring Unavailable MC GUTIERREZ Attending Unavailable CADIGAN, MILTON WILLOW Primary Care Unavailab MILI Perez Referring Unavailable YOLIE HURTADO Attending Unavailable PASTOR COLINDRES Attending Unavailable CADIGAN, MILTON WILLOW Primary Care Unavailab SHARRI Chong Referring Unavailable MAGDALENATIMOTHY Referring Unavailable HOUSE SR, JOHN P Primary Care Unavailable ANA, ICELANDIC Attending Unavailable HOUSE SR, JOHN P Primary Care Unavailable HOUSE SR, JOHN P Primary Care Unavailable JIM BRANDT Referring Unavailable HOUSE SR, JOHN P Primary Care Unavailable ANA, ICELANDIC Referring Unavailable ANA, ICELANDIC Attending Unavailable HOUSE SR, JOHN P Primary Care Unavailable JIM BRANDT Referring Unavailable JOSETTE EDWARDS Referring Unavailable CADIGAN, MILTON WILLOW Primary Care Unavailab le HOUSE SR, JOHN P Primary Care Unavailable HOUSE SR, JOHN P Primary Care Unavailable JOELLE REN Attending Unavailable MEL PALACIO Referring Unavailable HOUSE SR, JOHN P Primary Care Unavailable SMITHA GRAMAJO Attending Unavailable HOUSE SR, JOHN P Primary Care Unavailable HANNA BELL Attending Unavaila ble HOUSE SR, JOHN P Primary Care Unavailable LEONARD MCKEON Attending Unavailable HOUSE SR, JOHN P Primary Care Unavailable LEONARD MCKEON Referring Unavailable HOUSE SR, JOHN P Primary Care Unavailable ANA, ICELANDIC Referring Unavailable GANESH RICHARDSON Attending Unavailable HOUSE SR, JOHN P Primary Care Unavailable ANA, ICELANDIC Referring Unavailable HOUSE SR, JOHN P Primary Care Unavailable JIM BRANDT Referring Unavailable HOUSE SR, JOHN P Primary Care Unavailable HOUSE SR, JOHN P Primary Care Unavailable JIM BRANDT Referring Unavailable HOUSE SR, JOHN P Primary Care Unavailable JIM BRANDT Referring Unavailable MIKALJOELLE CAMERON Attending Unavailable CADIGAN, MILTON WILLOW Primary Care Unavailab MEL Brooks Referring Unavailable SMITHA GRAMAJO Attending Unavailable CADIGAN, MILTON WILLOW Primary Care Unavailab NATALIA Davenport Referring Unavailable CADIGAN, MILTON WILLOW Primary Care Unavailab SMITHA Kraus Referring Unavailable CADIGAN, MILTON WILLOW Primary Care Unavailab SMITHA Kraus Referring Unavailable CADIGAN, MILTON WILLOW Primary Care Unavailab le MEL PALACIO Attending Unavailable SMITHA GRAMAJO Referring Unavailable CADIGAN, MILTON WILLOW Primary Care Unavailab MC Freitas Referring Unavailable CADIGAN, MILTON WILLOW Primary Care Unavailab le BELAGAMARCELLO, JEROMY C Referring Unavailable LEOBARDO, BONY Admitting Unavailable KHAI ROMERO Attending Unavailable MILTON MANCINI Primary Care Unavailab APRIL Givens Attending Unavailable HOUSE SR, JOHN Stanton Primary Care Unavailable ANASARA Fields Referring Unavailable HOUSE SR, JOHN P Primary Care Unavailable KWESI, NATALIA Referring Unavailable HOUSE SR, JOHN P Primary Care Unavailable DEJON TORRESICA Attending Unavailable HOUSE SR, JOHN P Primary Care Unavailable SMITHA GRAMAJO Referring Unavailable HOUSE SR, JOHN P Primary Care Unavailable GANESH RICHARDSON Attending Unavailable LEONARD MCKEON Referring Unavailable CADIGAN, MILTON DAUGHERTY Primary Care Unavailab le MILI FERNÁNDEZ Referring Unavailable CADIGAN, MILTON DAUGHERTY Primary Care Unavailab MC Freitas Attending Unavailable MC GUTIERREZ Referring Unavailable CADIGAN, MILTON DAUGHERTY Primary Care Unavailab MC Freitas Referring Unavailable HOUSE SR, JOHN Stanton Primary Care Unavailable LEONARD MCKEON Referring Unavailable HOUSE SR, JOHN Stanton Primary Care Unavailable GEORGE GRIGSBY Admitting Unavailable GEORGE GRIGSBY Attending Unavailable ADDIS, MILTON DAUGHERTY Primary Care Unavailab MC Freitas Admitting Unavailable MC GUTIERREZ Attending Unavailable HOUSE SR, JOHN Stanton Primary Care Unavailable KHABBAZA MEL Referring Unavailable LIZZIE, ABEBA Admitting Unavailable HOUSE SR, JOHN Stanton Primary Care Unavailable DARRION TORRES Attending Unavailable DAKHIL NOMGino Consulting Unavailable HOUSE SR, JOHN Stanton Primary Care Unavailable LUZ LOZANO II Attending UnavailSHARRI Crockett Referring Unavailable POLLY BARNES Attending Unavaila ble CADIGAN, MILTON DAUGHERTY Primary Care Unavailab le CADIGAN, MILTON DAUGHERTY Primary Care Unavailab le KWESI NATALIA Referring Unavailable Victorianoigan Milton HORNE Primary Care Unavailable Shayna Heron H Attending Unavailable Shayna Heron H Admitting Unavailable Nosair, Jessica Attending Unavailable HOUSE, JOHN P Primary Care Unavailable Nosair, Jessica Admitting Unavailable HOUSE, JOHN P Primary Care Unavailable Lucia Ross Admitting Unavailable Lucia Ross Attending Unavailable Milton Mancini MD Primary Care Unavailable Omley, Heron H Admitting Unavailable Omley, Heron H Attending Unavailable Zeferino Alcala Attending Unavailable Fredrick, Zeferino Admitting Unavailable Milton Mancini MD Primary Care Unavailable HOUSE, JOHN P Primary Care Unavailable HOUSE, DO JOHN P Attending Unavailable HOUSE, DO JOHN P Admitting Unavailable Milton Mancini MD Primary Care Unavailable Heron Vega Attending UnavailHeron Tang Admitting Unavaila Milton Burgos MD Primary Care Unavailable Le, Curt K Admitting Unavailable Le, Curt K Attending Unavailable HOUSE, JOHN P Primary Care Unavailable HOUSE, DO JOHN P Attending Unavailable HOUSE, JOHN P Primary Care Unavailable HOUSE, DO JOHN P Attending Unavailable Milton Mancini MD Primary Care Unavailable Milton Mancini MD Attending Unavailable Addis HORNE, Milton Saravia Primary Care Unavailable Addis HORNE, Milton Saravia Attending Unavailable Addis HORNE, Milton Saravia Primary Care Unavailable Milton Mancini MD Attending Unavailable HOUSE, DO JOHN P Attending Unavailable HOUSE, JOHN P Primary Care Unavailable HOUSE, JOHN P Primary Care Unavailable HOUSE, DO JOHN P Attending Unavailable HOUSE, JOHN P Primary Care Unavailable HOUSE, DO JOHN P Attending Unavailable Milton Mancini MD Primary Care Unavailable Belagavi, Jeromy C Admitting Unavailable Belagavi, Jeromy C Attending Unavailable Addis HORNE, Milton Saravia Primary Care Unavailable Milton Mancini MD Attending Unavailable HOUSE, DO JOHN P Attending Unavailable Milton Mancini MD Primary Care Unavailable HOUSE, DO JOHN P Attending Unavailable Milton Mancini MD Primary Care Unavailable Le, Curt K Attending Unavailable Le, Curt K Admitting Unavailable HOUSE, JOHN P Primary Care Unavailable Milton Mancini MD Primary Care Unavailable Le, Curt K Attending Unavailable Le, Curt K Admitting Unavailable Milton Mancini MD Attending Unavailable Milton Mancini MD Primary Care Unavailable Allergies Allergy Classification Reported Allergen(s) Allergy Type Date of Onset Reaction(s) Facility Mold Extract (6 sources) Mold Extract Drug Allergy 4 Other: See Comments [facility] Sulfonamides (antibiotic) (6 sources) Sulfonamides (Antibiotic) Drug Allergy 9 GI Upset [facility] (1 source) Sulfonamides (Antibiotic); Translations: [sulfa drugs] Propensity to adverse reactions to drug (disorder) nausea [facility] Repository (20 sources) Sulfonamides (Antibiotic); Translations: [SULFA (SULFONAMIDE ANTIBIOTICS)] Drug Intolerance 9 GI Upset [facility] (20 sources) Strawberry; Translations: [OAK] Propensity to adverse reactions to drug 9 Unknown [facility] (1 source) Sulfonamides (Antibiotic) Drug allergy (disorder) 3 [facility] Repository (20 sources) Mold Extract; Translations: [MOLD] Drug Allergy 4 Unknown, Other: See Comments [facility] (20 sources) white oak pollen extract; Translations: [ALLER XT-TREE POLLEN-WHITE OAK] Drug Allergy 2 Unknown [facility] (1 source) Lactose; Translations: [Lactose] Drug Allergy [facility] Repository (1 source) Pollen; Translations: [Pollen] Propensity to adverse reactions (disorder) [facility] (1 source) sulfa drug; Translations: [sulfa drug] Propensity to adverse reactions to drug (disorder) 3 [facility] (1 source) sulfa topicals; Translations: [sulfa topicals] Propensity to adverse reactions to drug (disorder) 9 [facility] Repository (1 source) oak tree; Translations: [oak tree] Propensity to adverse reactions (disorder) [facility] Repository Medications Current Medications Medication Drug Class(es) Dates Sig (Normalized) Sig (Original) acetaminophen 325 mg oral tablet (20 sources) Start: 09-20-2023 take 2 tablets by mouth every six hours as needed acetaminophen (TYLENOL) 325 mg tablet Take 2 tablets by mouth every 6 hours as needed for pain. 0 09/20/2023 Active acetaminophen 325 mg / oxyCODONE hydrochloride 5 mg oral tablet (2 sources) Opioid Agonist Start: 02-21-2023 take 1 tablet by mouth every six hours Oxycodone-Acetamino phen (Percocet) 5-325 mg tablet Active 1 - 2 TAB PO Every 6 hours 15 4 February 21, 2023 albuterol 0.83 mg/ml inhalation solution (20 sources) beta2-Adrenergic Agonist Start: 07-20-2023 take 2.5 mg by inhalation every four hours as needed albuterol (PROVENTIL) 2.5 mg /3 mL (0.083 %) nebulizer solution Use 3 mL via nebulizer every 4 hours as needed for wheezing/shortness of breath. 270 mL 1 07/20/2023 Active Start: 07-25-2022 take 1-2 puff(s) by inhalation every six hours as needed for wheezing albuterol HFA (PROAIR HFA) 90 mcg/actuation inhaler 1-2 Puffs every 6 hours as needed for wheezing/shortness of breath. 1 Each 1 07/25/2022 Active Start: 07-19-2022 End: 10-19-2023 ProAir RespiClick 90 mcg/act uation breath activated Indications: Sarcoidosis Take 1-2 puffs every 4 to 6 hours as needed for shortness of breath or wheezing 1 Each 2 07/19/2022 10/19/2023 Discontinued (Course of therapy completed) Start: 10-22-2020 End: 07-15-2022 take 2 puff(s) by inhalation every six hours as needed albuterol HFA (PROVENTIL HFA, VENTOLIN HFA) 90 mcg/actuation inhaler Inhale 2 Puffs as instructed every 6 hours as needed. 8 g 3 04/01/2022 07/15/2022 Discontinued take 2 puff(s) by in halation every six hours as needed albuterol HFA (PROVENTIL HFA, VENTOLIN HFA) 90 mcg/actuation inhaler Inhale 2 Puffs as instructed every 6 hours as needed. 0 Active Comment on above: 1-2 Puffs every 6 ho urs as needed for wheezing/shortness of breath. Inhale 2 Puffs as in structed every 6 hours as needed. Take 1-2 puffs every 4 to 6 hours as needed for shortness of breath or wheezing Use 3 mL via nebuliz er every 4 hours as needed for wheezing/shortness of breath. amLODIPine 2.5 mg oral tablet (20 sources) Dihydropyridine Calcium Channel Kaitlin Start: take 2.5 mg by mouth once daily Amlodipine Active 2.5 MG PO Daily February 20, 2023 12:00am Comment on above: Take 2.5 mg by mouth once daily. azelastine hydrochloride 0.137 mg/actuat metered dose nasal spray (20 sources) Histamine-1 Receptor Antagonist Start: End: take 2 spray(s) nasal route twice daily as needed azelastine 0.1% nasal spray Use 2 Sprays in each nostril two times a day as needed. 30 mL 5 10/12/2023 Active Comment on above: Use 2 Sprays in each nostril twice daily as needed. budesonide 0.25 mg/ml inhalation suspension (20 sources) Corticosteroid Start: 024 budesonide (PULMICORT) 0.5 mg/2 mL nebulizer solution Indications: Moderate persistent asthma, unspecified whether complicated Use 2 mL via nebulizer two times a day. 120 mL 3 10/18/2023 Active 120 actuat budesonide 0.16 mg/actuat / formoterol fumarate 0.0045 mg/actuat metered dose inhaler (20 sources) Corticosteroid, beta2-Adrenergic Agonist Start: 023 take 1 puff(s) by inhalation once daily Budesonide-Formot pan Active 2 PUFF INHALATION Daily February 20, 2023 12:00am Start: 02-15-2023 End: 10-18-2023 take 2 puff(s) by inhalation twice daily budesonide-formoterol (SYMBICORT) 160-4.5 mcg/actuation inhaler Inhale 2 Puffs as instructed twice daily. 1 Each 5 02/15/2023 10/18/2023 Discontinued Start: 02-15-2023 take 2 puff(s) by in halation twice daily budesonide-formoterol (SYMBICORT) 160-4.5 mcg/actuation inhaler Inhale 2 Puffs as instructed twice daily. 1 Each 5 02/15/2023 Active Comment on above: Inhale 2 Puffs as in structed twice daily. cetirizine hydrochloride 5 mg oral tablet (20 sources) Histamine-1 Receptor Antagonist Start: take 1 tablet by mouth every twelve hours as needed cetirizine (ZYRTEC) 5 mg tablet Take 1 tablet by mouth two times a day as needed for cold/allergy symptoms. 60 tablet 5 10/12/2023 Active Start: 02-02-2023 End: 10-12-2023 take 1 mg by mouth once daily cetirizine (ALL DAY BLANCA RGY) 1 mg/mL syrup Take 5 mL by mouth once daily. 118 mL 2 02/02/2023 10/12/2023 Discontinued Start: 07-21-2022 End: 02-02-2023 take 1 tablet by mouth once daily cetirizine (ZYRTEC) 10 mg tablet Take 1 tablet by mouth once daily. 30 tablet 5 07/21/2022 02/02/2023 Discontinued Comment on above: Take 1 tablet by connie th once daily. Take 5 mL by mouth o nce daily. ciprofloxacin 500 mg oral tablet (2 sources) Quinolone Antimicrobial Start: take 1 tablet by mouth twice daily Ciprofloxacin Hcl (Cipro) 500 mg tablet Active 500 MG PO Twice daily 14 February 21, 2023 12:00am esomeprazole 40 mg granules for oral suspension (20 sources) Proton Pump Inhibitor Start: End: take 40 mg by mouth twice daily esomeprazole magnesium (NEXIUM) 40 mg packet Indications: Gastroesophageal reflux disease, unspecified whether esophagitis present Take 40 mg by mouth two times a day. 60 Each 0 11/13/2023 11/15/2023 Discontinued Start: 08-21-2023 End: 02-17-2024 take 40 mg by mouth once daily before breakfast esomeprazole magnesium (NEXIUM) 40 mg packet Indications: Gastroesophageal reflux disease, unspecified whether esophagitis present Take 40 mg by mouth daily before breakfast. 90 Packet 1 08/21/2023 02/17/2024 Active Start: 03-06-2023 End: 06-20-2023 take 40 mg by mouth once daily before breakfast esomeprazole magnesium (NEXIUM) 40 mg packet Take 40 mg by mouth daily before breakfast. 90 Packet 1 03/22/2023 Active Comment on above: Take 40 mg by mouth daily before breakfast. TAKE 1 PACKET AND DI SSOLVE IN WATER AND TAKE BY MOUTH ONCE DAILY fluconazole 100 mg oral tablet (6 sources) Azole Antifungal Start: 12-12-2023 fluconazole (DIFLUCAN) 100 mg tablet For treatment of yeast infection in the esophagus. Take two tablets by mouth on day one, then one tablet by mouth per day for a total of 14 days. 15 tablet 0 12/12/2023 Active Start: 09-03-2023 End: 09-14-2023 take 2 tablets by mouth once daily fluconazole (DIFLUCAN) 200 mg tablet Take 2 tablets by mouth once daily for 11 doses. 22 tablet 0 09/03/2023 09/14/2023 Active Comment on above: Take 2 tablets by mo uth once daily for 11 doses. Fluticasone Propion-Salmeterol (15 sources) Corticosteroid, beta2-Adrenergic Agonist Start: 02-20-2023 Fluticasone Propion-Salmeterol Active 1 INH INHALATION Twice daily February 20, 2023 12:00am Start: 12-13-2021 End: 02-15-2023 take 1 puff(s) by mouth twice daily fluticasone-salmeterol (WIXELA INHUB) 250-50 mcg/dose inhaler Indications: Sarcoidosis , Dyspnea and respiratory abnormalities Inhale 1 Puff as instructed twice daily. Rinse mouth and gargle with water after use. 60 Each 3 12/13/2021 02/15/2023 Discontinued Start: 12-13-2021 take 1 puff(s) by mo ut twice daily fluticasone-salmeterol (WIXELA INHUB) 250-50 mcg/dose inhaler Indications: Sarcoidosis , Dyspnea and respiratory abnormalities Inhale 1 Puff as instructed twice daily. Rinse mouth and gargle with water after use. 60 Each 3 12/13/2021 Active Comment on above: Inhale 1 Puff as ins tructed twice daily. Rinse mouth and gargle with water after use. guaiFENesin 20 mg/ml oral solution (20 sources) Start: 09-02-19 take 400 mg by mouth every four hours as needed guaiFENesin (ROBITUSSIN) 100 mg/5 mL syrup Take 20 mL by mouth every 4 hours as needed for cough. 0 09/02/2023 Active Comment on above: Take 20 mL by mouth every 4 hours as needed for cough. levothyroxine sodium 0.112 mg oral tablet (20 sources) l-Thyroxine Start: 10-19-19 24 take 1 tablet by mouth once daily before breakfast levothyroxine (EUTHYROX) 112 mcg tablet Indications: Papillary thyroid carcinoma (HCC) Take 1 tablet by mouth daily before breakfast. 90 tablet 0 10/19/2023 Active Start: 06-13-2023 End: 10-19-2023 take 1 tablet by mouth once daily before breakfast levothyroxine (EUTHYROX) 150 mcg tablet Indications: Papillary thyroid carcinoma (HCC) Take 1 tablet by mouth daily before breakfast. 90 tablet 1 06/13/2023 10/19/2023 Discontinued Start: 09-04-2020 End: 11-15-2022 take 1 tablet by mouth once daily Levothyroxine (Euthyrox) 137 mcg tablet Active 137 MCG PO Daily February 20, 2023 12:00am Comment on above: TAKE 1 TABLET BY CONNIE TH ONCE DAILY BEFORE BREAKFAST Take 1 tablet by connie th daily before breakfast. Take 1 tablet by connie th once daily melatonin 3 mg oral tablet (20 sources) Start: 09-02-19 take 1 tablet by mouth every twenty-four hours as needed melatonin 3 mg tablet Take 1 tablet by mouth at bedtime as needed for insomnia. 0 09/02/2023 Active Comment on above: Take 1 tablet by connie th at bedtime as needed for insomnia. metoclopramide 5 mg oral tablet (20 sources) Dopamine-2 Receptor Antagonist Start: 12-05-19 End: 12-05-19 take 1 tablet by mouth three times daily metoclopramide HCl (REGLAN) 5 mg tablet Take 1 tablet by mouth three times a day. 90 tablet 11 12/05/2023 12/04/2024 Active Start: 10-15-2023 End: 01-13-2024 take 1 tablet by mouth four times daily metoclopramide HCl (REGLAN) 5 mg tablet Take 1 tablet by mouth four times daily. 120 tablet 2 10/15/2023 12/05/2023 Discontinued Start: 09-02-2023 End: 10-02-2023 take 1 tablet by mouth at bedtime metoclopramide HCl (REGLAN) 5 mg tablet Take 1 tablet by mouth before meals and at bedtime. 120 tablet 0 09/02/2023 10/02/2023 Active Comment on above: Take 1 tablet by connie th before meals and at bedtime. metroNIDAZOLE 500 mg oral tablet (2 sources) Nitroimidazole Antimicrobial Start: 02-22-20 take 500 mg by mouth three times daily Metronidazole Active 500 MG PO Three times daily 16 12February 21, 2023 12:00am mirtazapine 7.5 mg oral tablet (9 sources) Start: 12-05-19 End: 12-05-19 take 1 tablet by mouth once daily at bedtime mirtazapine (REMERON) 7.5 mg tablet Take 1 tablet by mouth daily at bedtime. 90 tablet 3 12/05/2023 12/04/2024 Active montelukast 10 mg oral tablet (20 sources) Leukotriene Receptor Antagonist Start: 02-16-20 take 1 tablet by mouth once daily at bedtime montelukast (SINGULAIR) 10 mg tablet Indications: Moderate persistent asthma, unspecified whether complicated , Allergic rhinitis, unspecified seasonality, unspecified trigger Take 1 tablet by mouth daily at bedtime. 30 tablet 5 02/15/2023 Active Comment on above: Take 1 tablet by connie th daily at bedtime. Nebulizer Accessories kit (20 sources) Start: 07-20-19 Nebulizer Accessories kit Please supply her with the nebulizer kit to product safety technician to her machine 1 Kit 11 07/20/2023 Active Comment on above: Please supply her wi th the nebulizer kit to product safety technician to her machine nutritional supplement (NUTREN 2.0) 0.08 G - 2 Kcal/mL oral liquid (20 sources) Start: 10-06-19 nutritional supplement (NUTREN 2.0) 0.08 G - 2 Kcal/mL oral liquid Indications: Malnutrition of moderate degree (HCC) , Dysphagia, oropharyngeal phase , Gastroparesis Infuse 4 cartons of Nutren 2.0 through [employer] Pump at 85 ml/hr for 12 hours. Flush 60 ml 6 times per day [id number] mL 11 10/06/2023 Active nutritional supplements (NUTREN 1.5) 0.07 gram-1.5 kcal/mL liqd (20 sources) Start: 09-19-19 nutritional supplements (NUTREN 1.5) 0.07 gram-1.5 kcal/mL liqd Indications: Severe protein-calorie malnutrition (HCC) , Gastroparesis Enteral/Tube Feedings: Nutren 1.5 or equivalent formula Goal Rate (mL/hr x hours): 50 ml/hr x 22 hours (1100 ml total volume provides 1650 kcals, 74 g protein, 840 ml free water) Water Flush Volume (mL x frequency: at least 30 ml 6x/day for tube patency; up to 135 ml 6x/day for goal hydration [id number] mL 11 09/19/2023 Active Start: 09-01-2023 nutritional agrawal pplements (NUTREN 1.5) 0.07 gram-1.5 kcal/mL liqd Indications: Severe protein-calorie malnutrition (HCC) , Gastroparesis Enteral/Tube Feedings: Nutren 1.5 or equivalent formula Goal Rate (mL/hr x hours): 50 ml/hr x 22 hours (1100 ml total volume provides 1650 kcals, 74 g protein, 840 ml free water) Water Flush Volume (mL x frequency: at least 30 ml 6x/day for tube patency; up to 135 ml 6x/day for goal hydration [id number] mL 11 09/01/2023 Active Comment on above: Enteral/Tube Feeding s: Nutren 1.5 or equivalent formula Goal Rate (mL/hr x hours): 50 ml/hr x 22 hours (1100 ml total volume provides 1650 kcals, 74 g protein, 840 ml free water) Water Flush Volume (mL x frequency: at least 30 ml 6x/day for tube patency; up to 135 ml 6x/day for goal hydration omeprazole 40 mg delayed release oral capsule (5 sources) Proton Pump Inhibitor Start: End: take 1 capsule by mouth twice daily before breakfast omeprazole (PRILOSEC) 40 mg capsule Take 1 capsule by mouth two times a day before meals. 30 min before breakfast and dinner. Open capsule and take with small amount of yogurt 180 capsule 3 12/13/2023 12/12/2024 Active Start: 07-21-2022 End: 07-25-2022 take 1 capsule by mouth once daily omeprazole (PRILOSEC) 20 mg capsule Take 1 capsule by mouth once daily. 30 capsule 0 07/21/2022 07/25/2022 Discontinued Comment on above: Take 1 capsule by [facility] once daily. ondansetron 4 mg oral tablet (20 sources) Serotonin-3 Receptor Antagonist Start: take 1 tablet by mouth every eight hours as needed ondansetron (ZOFRAN) 4 mg tablet Take 1 tablet by mouth every 8 hours as needed for nausea/vomiting (for nausea.). 90 tablet 3 10/30/2023 Active Start: 02-21-2023 take 4 mg by mouth e very eight hours Ondansetron Active 4 MG PO Q8H 10 Tiffany 26th, 2023 12:00am pantoprazole 40 mg delayed release oral tablet (12 sources) Proton Pump Inhibitor Start: 11-15-2023 End: 11-29-2023 take 1 tablet by mouth twice daily pantoprazole DR (PROTONIX) 40 mg tablet Take 1 tablet by mouth two times a day for 14 days. 28 tablet 0 11/15/2023 Active polyethylene glycol 3350 83203 mg powder for oral solution (20 sources) Osmotic Laxative Start: 09-03-2023 polyethylene glycol 3350 17 gram packet Take 1 Packet by mouth once daily. Dissolve dose in 4 - 8 ounces of liquid and take as directed. 0 09/03/2023 Active Comment on above: Take 1 Packet by connie th once daily. Dissolve dose in 4 - 8 ounces of liquid and take as directed. psyllium 3400 mg powder for oral suspension (20 sources) Start: 09-02-2023 take 1 dose by mouth twice daily psyllium (METAMUCIL) 3.4 gram packet Take 1 Packet by mouth two times a day. 0 09/02/2023 Active Comment on above: Take 1 Packet by connie two times a day. sennosides, fci 8.6 mg oral tablet (20 sources) Start: 09-02-2023 take 1-2 tablets by mouth twice daily senna (SENOKOT) 8.6 mg tab Take 1-2 tablets by mouth two times a day. 0 09/02/2023 Active Comment on above: Take 1-2 tablets by mouth two times a day. sodium fluoride 0.011 mg/mg toothpaste (20 sources) fluoride, sodium , (DENTA-GEL) 1.1 % gel 1 application by DENTAL route daily at bedtime. 0 Active Comment on above: 1 application by DEN MADELAINE route daily at bedtime. sucralfate 1000 mg oral tablet (15 sources) Aluminum Complex Start: 11-13-2023 take 1 tablet by mouth twice daily before mealtime sucralfate (CARAFATE) 1 gram tablet Take 1 tablet by mouth two times a day before meals. 40 tablet 0 11/13/2023 Active triamcinolone acetonide 0.055 mg/actuat metered dose nasal spray (20 sources) Corticosteroid Start: 07-21-2022 End: 10-12-2023 take 2 spray(s) by inhalation once daily triamcinolone acetonide (NASACORT) 55 mcg nasal inhaler Use 2 Sprays in the nose once daily. 10.8 mL 5 10/12/2023 Active triamcinolone (K ENALOG) 0.025 % cream Apply to affected area two times a day. 0 Active Comment on above: Use 2 Sprays in the nose once daily. Apply to affected ar ea two times a day. Completed/Discontinued Medications Medication Drug Class(es) Dates Sig (Normalized) Sig (Original) Benzocaine (1 source) Standardized Chemical Allergen Start: 12-12-2023 End: 12-12-2023 benzocaine 20% (TOPEX) ergocalciferol 1.25 mg oral capsule (20 sources) Provitamin D2 Compound Start: 09-06-2023 End: 11-22-2023 take 1 capsule by mouth every week ergocalciferol 50,000 unit capsule (VITAMIN D2, DRISDOL) Take 1 capsule by mouth one time a week. 8 capsule 0 09/06/2023 11/22/2023 Discontinued (Course of therapy completed) Comment on above: Take 1 capsule by [facility] one time a week. 168 hr estradiol 0.63978 mg/hr transdermal system (20 sources) Estrogen Start: 03-23-2022 End: 07-21-2022 estradiol (CLIMARA) 0.1 mg/24 hr APPLY 1 PATCH TOPICALLY ONCE A WEEK 0 03/23/2022 07/21/2022 Discontinued Start: 12-23-2021 End: 07-21-2022 estradiol (YANCI, VIVELLE-DO T) 0.1 mg/24 hr Apply 1 Patch to affected area one time a week. 0 12/23/2021 07/21/2022 Discontinued estradiol (CLIMA RA) 0.1 mg/24 hr Apply 1 Patch as directed one time a week. 0 Active Comment on above: Apply 1 Patch to aff ected area one time a week. APPLY 1 PATCH TOPICA LLY ONCE A WEEK Apply 1 Patch as dir ected one time a week. estrogens, conjugated (fci) 1.25 mg oral tablet (11 sources) Estrogen End: take 1 tablet by mouth once daily estrogens conjugated (PREMARIN) 1.25 mg tablet Take 1.25 mg by mouth once daily. 0 07/21/2022 Discontinued Comment on above: Take 1.25 mg by mout h once daily. famotidine 20 mg oral tablet (10 sources) Histamine-2 Receptor Antagonist Start: 3 End: 4 take 1 tablet by mouth twice daily famotidine (PEPCID) 20 mg tablet Take 1 tablet by mouth twice daily. 60 tablet 2 07/25/2022 07/20/2023 Discontinued Comment on above: Take 1 tablet by connie th twice daily. 1 ml fentaNYL 0.05 mg/ml injection (1 source) Opioid Agonist Start: 4 End: 4 fentaNYL 50 mcg/mL injection (SUBLIMAZE) 30 actuat fluticasone furoate 0.2 mg/actuat / vilanterol 0.025 mg/actuat dry powder inhaler (2 sources) Corticosteroid, beta2-Adrenergic Agonist Start: 2 End: 2 fluticasone-vilanterol (BREO ELLIPTA) 200-25 mcg/dose inhaler Inhale 1 Inhalation as instructed once daily. Rinse mouth out after use 60 Each 5 11/24/2021 12/13/2021 Discontinued (Cost of medication) Comment on above: Inhale 1 Inhalation as instructed once daily. Rinse mouth out after use iv contrast (will be provided with radiology test) (5 sources) Start: 4 End: 4 iv contrast (will be provided with radiology test) Indications: Papillary thyroid carcinoma (HCC) CT Chest W -Inject, intravenously, once for 1 dose.No IV access, insert saline lock prior to the beginning of sedation, infusion, injection of imaging exam. Discontinue saline lock post exam. If Pt. has a central line or IVAD, may access for administration according to line specific nursing protocol. Once exam is complete flush line and de-access according to line specific nursing protocol in the CT contrast administration guidelines link. 1 Each 0 10/26/2023 10/27/2023 Start: 10-26-2023 End: 10-26-2023 inject 1 dose intravenously once, then inject 1 dose intravenously once iv contrast (will be provided with radiology test) Indications: Papillary thyroid carcinoma (HCC) Inject 1 Each intravenously one time only for [address] Neck W IVCON No IV access, insert saline lock prior to the sedation, infusion, injection for imaging exam. Discontinue saline lock post exam. If Pt. has a central line or IVAD, may access for administration according to line specific nursing protocol. Once exam is complete flush line and de-access according to line specific nursing protocol in the CT contrast administration guidelines link. 1 Each 0 10/26/2023 10/26/2023 Start: 10-26-2023 End: 10-27-2023 iv contrast (will be provide d with radiology test) Indications: Papillary thyroid carcinoma (HCC) CT Chest W -Inject, intravenously, once for 1 dose.No IV access, insert saline lock prior to the beginning of sedation, infusion, injection of imaging exam. Discontinue saline lock post exam. If Pt. has a central line or IVAD, may access for administration according to line specific nursing protocol. Once exam is complete flush line and de-access according to line specific nursing protocol in the CT contrast administration guidelines link. 1 Each 0 10/26/2023 10/27/2023 Active latanoprost 0.05 mg/ml ophthalmic solution (11 sources) Prostaglandin Analog End: 07-21-2022 take 1 drop(s) into the eye(s) once daily at bedtime latanoprost (XALATAN) 0.005 % ophthalmic solution 1 Drop daily at bedtime. 0 07/21/2022 Discontinued Comment on above: 1 Drop daily at bedt juan carlos. 5 ml midazolam 1 mg/ml injection (1 source) Benzodiazepine Start: 12-12-2023 End: 12-12-2023 midazolam (PF) injection (VERSED) mupirocin 0.02 mg/mg topical ointment (11 sources) RNA Synthetase Inhibitor Antibacterial Start: 06-24-2019 End: 07-21-2022 mupirocin (BACTROBAN) 2 % ointment Apply to affected area three times daily. 15 g 1 06/24/2019 07/21/2022 Discontinued Comment on above: Apply to affected ar ea three times daily. Problems Active Problems Problem Classification Problem Date Documented Date Episodic/Chronic Adjustment disorders (20 sources) Adjustment disorder with anxious mood; Translations: [Adjustment disorder with anxiety] 08-06-2018 Chronic Allergic reactions (2 sources) Adverse reaction to food; Translations: [Other adverse food reactions, not elsewhere classified, initial encounter] Episodic Aspiration pneumonitis; food/vomitus (1 source) Pneumonitis due to inhalation of food and vomit; Translations: [Aspiration pneumonia of both lungs, unspecified aspiration pneumonia type, unspecified part of lung (HCC)] Onset: 4 Episodic Asthma (20 sources) Moderate persistent asthma; Translations: [Moderate persistent asthma, uncomplicated] Onset: 4 02-15-2023 Chronic Cancer of thyroid (20 sources) Papillary thyroid carcinoma; Translations: [Malignant neoplasm of thyroid gland] Onset: 9 08-17-2018 Chronic Cancer of thyroid (2 sources) History of malignant neoplasm of thyroid; Translations: [Personal history of malignant neoplasm of thyroid] Episodic Chronic obstructive pulmonary disease and bronchiectasis (1 source) Obstruction of lower respiratory tract; Translations: [Chronic obstructive pulmonary disease, unspecified] Chronic Complication of device; implant or graft (20 sources) Equipment malfunction; Translations: [Other mechanical complication of other gastrointestinal prosthetic devices, implants and grafts, initial encounter] Onset: 4 09-20-2023 Episodic Complications of surgical procedures or medical care (2 sources) Postablative hypothyroidism; Translations: [Postprocedural hypothyroidism] Onset: 3 10-26-2023 Chronic Esophageal disorders (20 sources) Gastroesophageal reflux disease; Translations: [Gastro-esophageal reflux disease without esophagitis] Onset: 9 03-28-2019 Chronic Esophageal disorders (1 source) Esophageal disorders; Translations: [Gastro-esophageal reflux disease without esophagitis] Onset: 3 Essential hypertension (20 sources) Hypertensive disorder; Translations: [Essential (primary) hypertension] 08-06-2018 Chronic Fluid and electrolyte disorders (20 sources) Dehydration; Translations: [Dehydration] Onset: 4 Resolved: 4 02-21-2023 Episodic Immunity disorders (20 sources) Pulmonary sarcoidosis; 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] Onset: 9 03-28-2019 Chronic Inflammation; infection of eye (except that caused by tuberculosis or sexually transmitteddisease) (2 sources) Allergic conjunctivitis of bilateral eyes; Translations: [Acute atopic conjunctivitis, bilateral] Episodic Malaise and fatigue (1 source) Asthenia; Translations: [Weakness] Onset: 3 Episodic Mycoses (20 sources) Candidiasis of the esophagus; Translations: [Candidal esophagitis] Onset: 4 Resolved: 4 09-02-2023 Episodic Noninfectious gastroenteritis (3 sources) Colitis; Translations: [Noninfective gastroenteritis and colitis, unspecified] Onset: 3 02-21-2023 Episodic Nutritional deficiencies (20 sources) Deficiency of macronutrients; Translations: [Unspecified severe protein-calorie malnutrition] Onset: 4 09-07-2023 Chronic Other aftercare (1 source) Post-discharge follow-up; Translations: [Encounter for follow-up examination after completed treatment for conditions other than malignant neoplasm] 10-18-2023 Episodic Other connective tissue disease (7 sources) Muscle finding; Translations: [Myalgia, unspecified site] 11-01-2023 Episodic Other diseases of veins and lymphatics (1 source) Lymphedema, not elsewhere classified; Translations: [Lymphedema] Onset: Chronic Other gastrointestinal disorders (1 source) Diarrhea; Translations: [Diarrhea, unspecified] 03-22-2023 Episodic Other gastrointestinal disorders (17 sources) Dysphagia; Translations: [Dysphagia, pharyngoesophageal phase] Onset: 4 10-05-2023 Episodic Other gastrointestinal disorders (1 source) Oropharyngeal dysphagia; Translations: [Dysphagia, oropharyngeal phase] 10-05-2023 Episodic Other gastrointestinal disorders (18 sources) Pharyngeal dysphagia; Translations: [Dysphagia, pharyngeal phase] Onset: 4 11-22-2023 Episodic Other gastrointestinal disorders (1 source) Dysphagia, pharyngoesophageal phase; Translations: [Pharyngoesophageal dysphagia] Onset: 4 Episodic Other gastrointestinal disorders (1 source) Dysphagia, pharyngeal phase; Translations: [Pharyngeal dysphagia] Onset: 4 Episodic Other gastrointestinal disorders (1 source) Constipation, unspecified; Translations: [Constipation] Onset: Episodic Other injuries and conditions due to external causes (1 source) Aspiration into respiratory tract; Translations: [Unspecified foreign body in respiratory tract, part unspecified causing other injury, subsequent encounter] 07-20-2023 Episodic Other injuries and conditions due to external causes (3 sources) Pulmonary aspiration ; Translations: [Unspecified foreign body in respiratory tract, part unspecified causing other injury, sequela] 10-18-2023 Episodic Other injuries and conditions due to external causes (1 source) Unspecified foreign body in respiratory tract, part unspecified causing other injury, sequela; Translations: [Chronic pulmonary aspiration, sequela] Onset: Episodic Other lower respiratory disease (3 sources) Dyspnea on exertion; Translations: [Other forms of dyspnea] Episodic Other lower respiratory disease (2 sources) Dyspnea; Translations: [Dyspnea, unspecified] Episodic Other lower respiratory disease (2 sources) Dyspnea, unspecified; Translations: [Dyspnea, unspecified] Onset: 4 Episodic Other lower respiratory disease (2 sources) Other abnormalities of breathing; Translations: [Other abnormalities of breathing] Onset: 4 Episodic Other lower respiratory disease (2 sources) Hypoxemia; Translations: [Hypoxemia] Onset: 4 Episodic Other lower respiratory disease (1 source) Multiple nodules of lung; Translations: [Other nonspecific abnormal finding of lung field] 10-18-2023 Episodic Other nutritional; endocrine; and metabolic disorders (3 sources) Weight loss; Translations: [Abnormal weight loss] Episodic Other upper respiratory disease (20 sources) Vocal cord paralysis; Translations: [Paralysis of vocal cords and larynx, unspecified] Onset: 9 03-28-2019 Chronic Other upper respiratory disease (5 sources) Allergic rhinitis; Translations: [Allergic rhinitis, unspecified] Chronic Other upper respiratory disease (1 source) Chronic rhinitis; Translations: [Chronic rhinitis] Chronic Other upper respiratory disease (2 sources) Chronic pharyngitis; Translations: [Chronic pharyngitis] 02-02-2023 Chronic Other upper respiratory disease (2 sources) Disorder of the larynx; Translations: [Paralysis of vocal cords and larynx, unilateral] 02-02-2023 Chronic Other upper respiratory disease (1 source) Paralysis of vocal cords and larynx, unspecified; Translations: [Vocal cord paralysis] Onset: 9 Chronic Other upper respiratory disease (2 sources) Disorder of nasal sinus; Translations: [Unspecified disorder of nose and nasal sinuses] Episodic Residual codes; unclassified (1 source) Feeding problem; Translations: [Other specified health status] 10-05-2023 Episodic Residual codes; unclassified (1 source) Gastrointestinal tube in situ; Translations: [Presence of other specified devices] 10-05-2023 Episodic Respiratory failure; insufficiency; arrest (adult) (18 sources) Dependence on supplemental oxygen; Translations: [Dependence on supplemental oxygen] Onset: 4 11-08-2023 Chronic Respiratory failure; insufficiency; arrest (adult) (2 sources) Acute respiratory failure, unspecified whether with hypoxia or hypercapnia; Translations: [Acute respiratory failure, unspecified whether with hypoxia or hypercapnia] Onset: 4 Episodic Secondary malignancies (1 source) Secondary malignant neoplasm of right lung; Translations: [Secondary malignant neoplasm of right lung] 10-27-2023 Chronic Syncope (2 sources) Syncope and collapse; Translations: [Syncope and collapse] Onset: 4 Episodic Thyroid disorders (20 sources) Hypothyroidism; Translations: [Hypothyroidism, unspecified] Onset: 4 06-20-2023 Chronic Unclassified (1 source) Transaminitis; Translations: [Transaminitis] Onset: 4 Past or Other Problems Problem Classification Problem Date Documented Da te Episodic/Chronic Abdominal pain (2 sources) Generalized abdominal pain; Translations: [Generalized abdominal pain] Onset: 05-18-2023 03-22-2023 Episodic Deficiency and other anemia (20 sources) Microcytic anemia; Translations: [Iron deficiency anemia, unspecified] Onset: 08-29-2023 09-02-2023 Episodic Disorders of lipid metabolism (20 sources) Hyperlipidemia; Translations: [Hyperlipidemia, unspecified] Onset: 06-20-2023 Resolved: 06-20-2023 06-20-2023 Chronic Gastritis and duodenitis (20 sources) Acute gastritis; Translations: [Acute gastritis without bleeding] Onset: 08-28-2023 Resolved: 09-02-2023 09-02-2023 Episodic Nausea and vomiting (14 sources) Nausea and vomiting; Translations: [Nausea with vomiting, unspecified] Onset: 05-18-2023 02-21-2023 Episodic Other disorders of stomach and duodenum (20 sources) Gastroparesis syndrome; Translations: [Gastroparesis] Onset: 08-28-2023 09-13-2023 Episodic Other disorders of stomach and duodenum (1 source) Gastroparesis; Translations: [Gastroparesis] Onset: 09-20-2023 Episodic Other gastrointestinal disorders (1 source) Dysphagia, oropharyngeal phase; Translations: [Oropharyngeal dysphagia] Onset: 06-16-2023 Episodic Other gastrointestinal disorders (1 source) Diarrhea, unspecified; Translations: [Diarrhea, unspecified type] Onset: 03-22-2023 Episodic Other nutritional; endocrine; and metabolic disorders (20 sources) Hypomagnesemia; Translations: [Hypomagnesemia] Onset: 08-29-2023 Resolved: 09-02-2023 09-02-2023 Chronic Bell-; endo-; and myocarditis; cardiomyopathy (except that caused by tuberculosis or sexually transmitted disease) (20 sources) Pericardial effusion - noninflammatory; Translations: [Pericardial effusion (noninflammatory)] Onset: 03-28-2019 03-28-2019 Episodic Pneumonia (except that caused by tuberculosis or sexually transmitted disease) (2 sources) Pneumonia, unspecified organism; Translations: [Pneumonia, unspecified organism] Onset: 09-11-2023 Episodic Residual codes; unclassified (1 source) Other specified health status; Translations: [On enteral nutrition] Onset: 10-05-2023 Episodic Residual codes; unclassified (1 source) Presence of other specified devices; Translations: [Nasojejunal tube present] Onset: 10-05-2023 Episodic Results Test Name Value Interpretation Reference Range Facility Progress Note - Nurseon 12-29 Progress Note - Nurse [facility] Coding Summaryon 01-18-2024 C[facility] Outside Recordson 01-17-2024 Outside Records [id number] Provider Orderson 01-17-2024 Provider Orders [id number] .Auto Diff 1on 01-16-2024 Auto [place] % 5 % Normal 06-09 [facility] Comment on above: Performed By: #### 7 [id number], [id number], [id number] ####[facility] (DEFAULT)[address] [place] [address] 23700 Baso Abs# 0.0 x10 Normal 0.0-0.2 [facility] Comment on above: Performed By: #### 7 [id number], [id number], [id number], [id number], [id number] ####[facility] (DEFAULT)[address] [place] [address] 18232 Basophils/100 WBC (Bld) 0.6 % Normal 0.2-2.0 [facility] Comment on above: Performed By: #### 7 [id number], [id number], [id number], [id number], [id number] ####[facility] (DEFAULT)[address] [place] [address] 92446 Eos Abs# 0.2 x10 Normal 0.0-0.4 [facility] Comment on above: Performed By: #### 7 [id number], [id number], [id number], [id number], [id number] ####[facility] (DEFAULT)[address] [place] [address] 38880 Eosinophils/100 WBC (Bld) 2.6 % Normal 0.9-4.0 [facility] Comment on above: Performed By: #### 7 [id number], [id number], [id number], [id number], [id number] ####[facility] (DEFAULT)[address] [place] [address] 37661 Lymph Abs# 0.4 x10 Low 1.3-2.9 [facility] Comment on above: Performed By: #### 7 [id number], [id number], [id number], [id number], [id number] ####[facility] (DEFAULT)[address] [place] [address] 53037 Lymphocytes/100 WBC (Bld) 5 % Low 14-48 [facility] Comment on above: Performed By: #### 7 [id number], [id number], [id number], [id number], [id number] ####[facility] (DEFAULT)[address] [place] [address] 80864 Mifflin Abs# 0.4 x10 Normal 0.0-0.8 [facility] Comment on above: Performed By: #### 7 [id number], [id number], [id number], [id number], [id number] ####[facility] (DEFAULT)[address] [place] [address] 58627 Neut Abs# 6.4 x10 Normal 1.5-9.2 [facility] Comment on above: Performed By: #### 7 [id number], [id number], [id number], [id number], [id number] ####[facility] (DEFAULT)[address] [place] [address] 37422 Neutrophils/100 WBC (Bld) 86 % Normal 44-88 [facility] Comment on above: Performed By: #### 7 [id number], [id number], [id number], [id number], [id number] ####[facility] (DEFAULT)[address] [place] [address] 79772 BMP Standardon 01-16-2024 eGFR Non AA >60 Invalid Interpretation Code [facility] Comment on above: Performed By: #### 7 [id number], [id number], [id number], [id number], [id number] ####[facility] (DEFAULT)[address] [place] [address] 16473 eGFR AA >60 Invalid Interpretation Code [facility] Comment on above: Performed By: #### 7 [id number], [id number], [id number], [id number], [id number] ####[facility] (DEFAULT)[address] [place] [address] 52121 Anion gap [Moles/Vol] 12.0 mmol/L Normal 5.0-19.0 [facility] Comment on above: Performed By: #### 7 [id number], [id number], [id number], [id number], [id number] ####[facility] (DEFAULT)[address] [place] [address] 11595 Calcium [Mass/Vol] 8.3 mg/dL Low 8.9-10.3 [facility] Comment on above: Performed By: #### 7 [id number], [id number], [id number], [id number], [id number] ####[facility] (DEFAULT)[address] [place] [address] 94147 Chloride [Moles/Vol] 102 mmol/L Normal 101-111 [facility] Comment on above: Performed By: #### 7 [id number], [id number], [id number], [id number], [id number] ####[facility] (DEFAULT)[address] [place] [address] 54022 CO2 [Moles/Vol] 26 mmol/L Normal 21-32 [facility] Comment on above: Performed By: #### 7 [id number], [id number], [id number], [id number], [id number] ####[facility] (DEFAULT)[address] [place] [address] 70989 Creatinine [Mass/Vol] 0.71 mg/dL Normal 0.60-1.30 [facility] Comment on above: Performed By: #### 7 624052, [id number], [id number], [id number], 0550018 ####[facility] (DEFAULT)[address] [place] [address] 67501 Glucose [Mass/Vol] 93.0 mg/dL Normal 74.0-118.0 [facility] Comment on above: Performed By: #### 7 [id number], [id number], [id number], [id number], [id number] ####[facility] (DEFAULT)[address] [place] [address] 72920 Osmolality 276 mOsm/L Invalid Interpretation Code [facility] Comment on above: Performed By: #### 7 097830, [id number], [id number], [id number], [id number] ####[facility] (DEFAULT)[address] [place] [address] 17981 Potassium [Moles/Vol] 4.0 mmol/L Normal 3.6-5.1 [facility] Comment on above: Performed By: #### 7 [id number], [id number], [id number], 9303876, 0798084 ####[facility] (DEFAULT)[address] [place] [address] 71649 Sodium [Moles/Vol] 136.0 mmol/L Normal 136.0-144.0 [facility] Comment on above: Performed By: #### 7 251504, 19124134, 5991314681, 2307136, 3518570 ####[facility] (DEFAULT)[address] [place] [address] Urea nitrogen [Mass/Vol] 24 mg/dL Normal 8-26 [facility] Comment on above: Performed By: #### 7 446048, 73165637, 0804433778, 2013960, 1900618 ####[facility] (DEFAULT)[address] [place] [address] Urea nitrogen/Creatinine [Mass ratio] 33.8 mg/mg High 4.6-16.2 [facility] Comment on above: Performed By: #### 7 436542, 68084545, 6273657106, 4355550, 6733041 ####[facility] (DEFAULT)[address] [place] [address] CBC w/ Auto Diffon 4 Erythrocyte distribution width (RBC) [Ratio] 18.1 % High 11.5-15.0 [facility] Comment on above: Performed By: #### 7 587503, 97583130, 0240112923, 5400067, 8918841 ####[facility] (DEFAULT)[address] [place] [address] Hematocrit (Bld) [Volume fraction] 30.9 % Low 33.7-40.4 [facility] Comment on above: Performed By: #### 7 850342, 30862288, 1700980067, 1863557, 2660495 ####[facility] (DEFAULT)[address] [place] [address] Hemoglobin (Bld) [Mass/Vol] 10.7 g/dL Low 11.3-15.9 [facility] Comment on above: Performed By: #### 7 988985, 23630708, 4437854911, 6368164, 7795013 ####[facility] (DEFAULT)[address] [place] [address] Man Diff? Auto Invalid Interpretation Code [facility] Comment on above: Performed By: #### 7 270871, 98240423, 3554865451, 3428030, 3684673 ####[facility] (DEFAULT)[address] [place] [address] 84271 MCH (RBC) [Entitic mass] 28 pg Normal 24-34 [facility] Comment on above: Performed By: #### 7 348140, 96878574, 2295300334, 4556720, 7268079 ####[facility] (DEFAULT)[address] [place] [address] 33859 MCHC (RBC) [Mass/Vol] 35 g/dL Normal 26-37 [facility] Comment on above: Performed By: #### 7 217244, 26130146, 9845634062, 8805897, 6093446 ####[facility] (DEFAULT)[address] [place] [address] 08120 MCV (RBC) [Entitic vol] 82 fL Normal 81-100 [facility] Comment on above: Performed By: #### 7 106321, 32580347, 8459353591, 3296626, 0089144 ####[facility] (DEFAULT)[address] [place] [address] 36522 Platelet 279 x10 Normal 138-427 [facility] Comment on above: Performed By: #### 7 816014, 81754669, 6198831578, 7993050, 5948090 ####[facility] (DEFAULT)[address] [place] [address] 83107 Platelet mean volume (Bld) [Entitic vol] 7.8 fL Normal 6.3-10.2 [facility] Comment on above: Performed By: #### 7 842428, 60763046, 9995912230, 1620850, 4515828 ####[facility] (DEFAULT)[address] [place] [address] 05498 RBC 3.77 x10 Normal 3.70-5.30 [facility] Comment on above: Performed By: #### 7 938538, 29113422, 5221104876, 6978750, 0505227 ####[facility] (DEFAULT)[address] [place] [address] 96934 WBC 7.4 x10 Normal 3.5-10.5 [facility] Comment on above: Performed By: #### 7 579441, 55883405, 1268820030, 3523764, 6214848 ####[facility] (DEFAULT)[address] [place] [address] Education Noteon 01-16-2024 [facility] Clinical Summaryon 01-16-2024 Inpatient Clinical Summary Normal [facility] Inpatient Patient Summaryon 01-16-2024 Inpatient Patient Summary [facility] Insuranceon 01-16-2024 Insurance [id number]#1.00OTGTIFF [facility] Magnesiumon 01-16-2024 Magnesium [Mass/Vol] 2.11 mg/dL Normal 1.80-2.50 [facility] Comment on above: Performed By: #### 7 713415, 21862852, 7567647371, 8740336, 3911797 ####[facility] (DEFAULT)[address] [place] [address] Pharmacy Noteon 01-16-2024 Pharmacy Note [facility] Phoson 01-16-2024 Phosphate [Mass/Vol] 3.3 mg/dL Normal 2.5-4.6 [facility] Comment on above: Performed By: #### 7 760570, 42429252, 3060331972, 4850244, 8815355 ####[facility] (DEFAULT)[address] [place] [address] 24794 Progress Note - Nurseon 12-28 Progress Note - Nurse [facility] Progress Note - Nurse [facility] Nutrition Noteon 01-15-2024 Nutrition Note [facility] Outside Recordson 01-15-2024 Outside Records [id number]#1.00OTGTIFF [facility] Outside Records [id number]#1.00OTGTIFF [facility] Progress Note - Nurseon 12-27 Progress Note - Nurse [facility] Progress Note - Nurse [facility] Provider Orderson 01-15-2024 Provider Orders [id number]#1.00OTGTIF F Normal [facility] Telemetry Stripson Telemetry Strips [id number]#1.00OTGTIFF Normal [facility] .Auto Diff 1on 01-14-2024 Auto Mifflin % 5 % Normal -12 [facility] Comment on above: Performed By: #### 2 125918, 8194623863, 0069234, 6188567, 23067910 ####[facility] (DEFAULT)[address] [place] [address] 11498 Baso Abs# 0.1 x10 Normal 0.0-0.2 [facility] Comment on above: Performed By: #### 2 534919, 0323144608, 5636867, 2254583, 18592700 ####[facility] (DEFAULT)[address] [place] [address] 46222 Basophils/100 WBC (Bld) 0.8 % Normal 0.2-2.0 [facility] Comment on above: Performed By: #### 2 729071, 0416183586, 2579442, 3855737, 02460018 ####[facility] (DEFAULT)[address] [place] [address] 76540 Eos Abs# 0.1 x10 Normal 0.0-0.4 [facility] Comment on above: Performed By: #### 2 447988, 5155569055, 6967240, 9962022, 13789906 ####[facility] (DEFAULT)[address] [place] [address] 73377 Eosinophils/100 WBC (Bld) 1.9 % Normal 0.9-4.0 [facility] Comment on above: Performed By: #### 2 382263, 7600471740, 7887281, 7245542, 56744395 ####[facility] (DEFAULT)[address] [place] [address] 26881 Lymph Abs# 0.5 x10 Low 1.3-2.9 [facility] Comment on above: Performed By: #### 2 985635, 6513245026, 6999997, 3765782, 91475731 ####[facility] (DEFAULT)[address] [place] [address] Lymphocytes/100 WBC (Bld) 6 % Low 14-48 [facility] Comment on above: Performed By: #### 2 587131, 6432661340, 5145447, 8751421, 22313506 ####[facility] (DEFAULT)[address] [place] [address] Mifflin Abs# 0.3 x10 Normal 0.0-0.8 [facility] Comment on above: Performed By: #### 2 897536, 4540304354, 2428451, 1946540, 83370863 ####[facility] (DEFAULT)[address] [place] [address] Neut Abs# 6.1 x10 Normal 1.5-9.2 [facility] Comment on above: Performed By: #### 2 383314, 5819923984, 1761249, 3303630, 10906261 ####[facility] (DEFAULT)[address] [place] [address] Neutrophils/100 WBC (Bld) 86 % Normal 44-88 [facility] Comment on above: Performed By: #### 2 665813, 6517141598, 6637690, 1034336, 95167162 ####[facility] (DEFAULT)[address] [place] [address] Standardon 01-14-2024 eGFR Non AA >60 Invalid Interpretation Code [facility] Comment on above: Performed By: #### 2 039871, 1994272494, 3926933, 2050449, 16224005 ####[facility] (DEFAULT)[address] [place] [address] eGFR AA >60 Invalid Interpretation Code [facility] Comment on above: Performed By: #### 2 847912, 6611425249, 8912724, 6191092, 33812603 ####[facility] (DEFAULT)[address] [place] [address] 13381 Anion gap [Moles/Vol] 10.8 mmol/L Normal 5.0-19.0 [facility] Comment on above: Performed By: #### 2 794367, 1428331517, 4607745, 4453297, 40095665 ####[facility] (DEFAULT)[address] [place] [address] 91127 Calcium [Mass/Vol] 8.0 mg/dL Low 8.9-10.3 [facility] Comment on above: Performed By: #### 2 105543, 5854067290, 6672981, 0664673, 86980083 ####[facility] (DEFAULT)[address] [place] [address] 17920 Chloride [Moles/Vol] 99 mmol/L Low 101-111 [facility] Comment on above: Performed By: #### 2 809536, 3880234915, 2578226, 7271049, 66786598 ####[facility] (DEFAULT)[address] [place] [address] 09113 CO2 [Moles/Vol] 28 mmol/L Normal 21-32 [facility] Comment on above: Performed By: #### 2 983839, 3807029403, 3951450, 0492116, 90726465 ####[facility] (DEFAULT)[address] [place] [address] 97725 Creatinine [Mass/Vol] 0.79 mg/dL Normal 0.60-1.30 [facility] Comment on above: Performed By: #### 2 405452, 6689679763, 0630443, 6060324, 67243100 ####[facility] (DEFAULT)[address] [place] [address] 02153 Glucose [Mass/Vol] 91.0 mg/dL Normal 74.0-118.0 [facility] Comment on above: Performed By: #### 2 091063, 7384565899, 8339846, 8264486, 95710486 ####[facility] (DEFAULT)[address] [place] [address] 82580 Osmolality 269 mOsm/L Invalid Interpretation Code [facility] Comment on above: Performed By: #### 2 458678, 1529370609, 0468081, 6701622, 66797426 ####[facility] (DEFAULT)[address] [place] [address] Potassium [Moles/Vol] 3.8 mmol/L Normal 3.6-5.1 [facility] Comment on above: Performed By: #### 2 094853, 4213995639, 2594842, 8601869, 66219285 ####[facility] (DEFAULT)[address] [place] [address] Sodium [Moles/Vol] 134.0 mmol/L Low 136.0-144.0 [facility] Comment on above: Performed By: #### 2 113632, 5741914946, 3223467, 4570672, 07006114 ####[facility] (DEFAULT)[address] [place] [address] Urea nitrogen [Mass/Vol] 16 mg/dL Normal 8-26 [facility] Comment on above: Performed By: #### 2 792412, 4555184968, 7875091, 0283408, 74756613 ####[facility] (DEFAULT)[address] [place] [address] Urea nitrogen/Creatinine [Mass ratio] 20.2 mg/mg High 4.6-16.2 [facility] Comment on above: Performed By: #### 2 439982, 7646530027, 5213583, 4385500, 21720012 ####[facility] (DEFAULT)[address] [place], [place] [address] CBC w/ Auto Diffon 4 Erythrocyte distribution width (RBC) [Ratio] 17.8 % High 11.5-15.0 [facility] Comment on above: Performed By: #### 2 063949, 1094614869, 0282747, 3849403, 12300318 ####[facility] (DEFAULT)[address] [place] [address] Hematocrit (Bld) [Volume fraction] 30.4 % Low 33.7-40.4 [facility] Comment on above: Performed By: #### 2 414839, 5988059288, 0617349, 1175988, 69859405 ####[facility] (DEFAULT)[address] [place] [address] Hemoglobin (Bld) [Mass/Vol] 10.5 g/dL Low 11.3-15.9 [facility] Comment on above: Performed By: #### 2 169768, 0780901939, 6372450, 7617858, 99251851 ####[facility] (DEFAULT)[address] [place] [address] Man Diff? Auto Invalid Interpretation Code [facility] Comment on above: Performed By: #### 2 333960, 9800152483, 9340968, 7484238, 11465154 ####[facility] (DEFAULT)[address] [place] [address] MCH (RBC) [Entitic mass] 28 pg Normal 24-34 [facility] Comment on above: Performed By: #### 2 391497, 6074004043, 7111938, 3400505, 55409849 ####[facility] (DEFAULT)[address] [place] [address] 42203 MCHC (RBC) [Mass/Vol] 34 g/dL Normal 26-37 [facility] Comment on above: Performed By: #### 2 401814, 9372506410, 4245316, 9096515, 94886039 ####[facility] (DEFAULT)[address] [place] [address] MCV (RBC) [Entitic vol] 82 fL Normal 81-100 [facility] Comment on above: Performed By: #### 2 763544, 5421004863, 1349668, 6608002, 75581057 ####[facility] (DEFAULT)[address] [place] [address] Platelet 293 x10 Normal 138-427 [facility] Comment on above: Performed By: #### 2 692491, 9391585348, 0140054, 8722033, 66001694 ####[facility] (DEFAULT)[address] [place] [address] 03563 Platelet mean volume (Bld) [Entitic vol] 6.9 fL Normal 6.3-10.2 [facility] Comment on above: Performed By: #### 2 496687, 7061216341, 2225432, 1684505, 00236173 ####[facility] (DEFAULT)[address] [place] [address] 86976 RBC 3.71 x10 Normal 3.70-5.30 [facility] Comment on above: Performed By: #### 2 271185, 1777632294, 0870460, 1475122, 80226340 ####[facility] (DEFAULT)[address] [place] [address] WBC 7.1 x10 Normal 3.5-10.5 [facility] Comment on above: Performed By: #### 2 260940, 8761235012, 8757913, 9624191, 27307840 ####[facility] (DEFAULT)[address] [place] [address] 06452 Cortisol LCon 01-14-2024 Cortisol LC 25.7 ug/dL High 6.2-19.4 [facility] Comment on above: Result Comment: José Miguel balderas Note: The reference interval and flagging for this test is for an AM collection. If this is a PM collection please use: Cortisol PM: 2.3-11.9Performed At: [facility] [id number] Vincent PhD Ph:[phone] Performed By: #### 1 051823193, 7015044219, 4402885576, 8063299236, 1075534, 7238938, 07867262 ####[facility] (DEFAULT)[address] [place] [address] 85188 Magnesiumon 01-14-2024 Magnesium [Mass/Vol] 2.09 mg/dL Normal 1.80-2.50 [facility] Comment on above: Performed By: #### 2 256087, 4522205260, 2811798, 4037088, 29799238 ####[facility] (DEFAULT)[address] [place] [address] 44997 Phoson 01-14-2024 Phosphate [Mass/Vol] 2.6 mg/dL Normal 2.5-4.6 [facility] Comment on above: Performed By: #### 2 240387, 2403567220, 0777458, 8611803, 87293020 ####[facility] (DEFAULT)[address] [place] [address] Standardon 01-13-2024 eGFR Non AA >60 Invalid Interpretation Code [facility] Comment on above: Performed By: #### 1 194730042, 3495533748, 1103169149, 3513086841, 9763607, 6731163, 28216983 ####[facility] (DEFAULT)[address] [place] [address] 78493 eGFR AA >60 Invalid Interpretation Code [facility] Comment on above: Performed By: #### 1 345635767, 9422515971, 3694069531, 5792563268, 4700430, 9295954, 98971033 ####[facility] (DEFAULT)[address] [place] [address] 89814 Anion gap [Moles/Vol] 12.4 mmol/L Normal 5.0-19.0 [facility] Comment on above: Performed By: #### 1 056637479, 4059425031, 4938738817, 5182512046, 9129214, 3132189, 78043268 ####[facility] (DEFAULT)[address] [place] [address] 92242 Calcium [Mass/Vol] 8.4 mg/dL Low 8.9-10.3 [facility] Comment on above: Performed By: #### 1 547728311, 5787412751, 9160161497, 5497859572, 7992043, 2983936, 19762406 ####[facility] (DEFAULT)[address] [place] [address] 94631 Chloride [Moles/Vol] 99 mmol/L Low 101-111 [facility] Comment on above: Performed By: #### 1 495899886, 5272272196, 8499728854, 6535731696, 9862610, 8650793, 04520162 ####[facility] (DEFAULT)[address] [place] [address] 35419 CO2 [Moles/Vol] 27 mmol/L Normal 21-32 [facility] Comment on above: Performed By: #### 1 106654085, 4934046114, 9153288516, 7085391070, 6548991, 1109062, 56010861 ####[facility] (DEFAULT)[address] [place] [address] 37186 Creatinine [Mass/Vol] 0.73 mg/dL Normal 0.60-1.30 [facility] Comment on above: Performed By: #### 1 313322202, 1036649202, 2497329703, 0232613629, 0742817, 5162475, 98298277 ####[facility] (DEFAULT)[address] [place] [address] 83726 Glucose [Mass/Vol] 93.0 mg/dL Normal 74.0-118.0 [facility] Comment on above: Performed By: #### 1 213288947, 0528409189, 5218270738, 2207928213, 3114616, 9862107, 76228377 ####[facility] (DEFAULT)[address] [place] [address] 93966 Osmolality 272 mOsm/L Invalid Interpretation Code [facility] Comment on above: Performed By: #### 1 929467559, 0787246331, 0695489245, 9125237994, 2290214, 4053959, 33645820 ####[facility] (DEFAULT)[address] [place] [address] 13288 Potassium [Moles/Vol] 3.4 mmol/L Low 3.6-5.1 [facility] Comment on above: Performed By: #### 1 765582259, 6017675643, 6559407801, 5726348487, 0016018, 6849610, 48852099 ####[facility] (DEFAULT)[address] [place] [address] 66693 Sodium [Moles/Vol] 135.0 mmol/L Low 136.0-144.0 [facility] Comment on above: Performed By: #### 1 716433219, 8095248619, 1763873330, 8618215086, 7066211, 4111452, 47944890 ####[facility] (DEFAULT)[address] [place] [address] Urea nitrogen [Mass/Vol] 18 mg/dL Normal 8-26 [facility] Comment on above: Performed By: #### 1 498585473, 7632844748, 5499293109, 7113080853, 8998803, 0111670, 91358152 ####[facility] (DEFAULT)[address] [place] [address] Urea nitrogen/Creatinine [Mass ratio] 24.6 mg/mg High 4.6-16.2 [facility] Comment on above: Performed By: #### 1 791318485, 8403600513, 9157318606, 7907664010, 9980874, 2919137, 89939408 ####[facility] (DEFAULT)[address] [place] [address] ED Note-Nursingon 01-13-2024 ED Note-Nursing Patient was admitted to the floor, hospitalist to review cultures. Normal [facility] Extra Blueon 01-13-2024 Tube Collected Yes Invalid Interpretation Code [facility] Comment on above: Performed By: #### 1 153305165, 5437379608, 7238178978, 6392448221, 3816358, 1844936, 81148988 ####[facility] (DEFAULT)[address] [place] [address] Magnesiumon 01-13-2024 Magnesium [Mass/Vol] 1.93 mg/dL Normal 1.80-2.50 [facility] Comment on above: Performed By: #### 1 738029112, 3290032471, 2490812212, 3632386900, 2415761, 3339497, 88629563 ####[facility] (DEFAULT)[address] [place] [address] 97806 Phoson 01-13-2024 Phosphate [Mass/Vol] 2.5 mg/dL Normal 2.5-4.6 [facility] Comment on above: Performed By: #### 1 958114101, 8456059070, 8367681796, 7546515008, 4996272, 0519489, 28478397 ####[facility] (DEFAULT)[address] [place] [address] Progress Note - Nurseon 12-27 Progress Note - Nurse [facility] Progress Note - Nurse Normal [facility] Nutrition Noteon 01-12-2024 Nutrition Note Normal [facility] Progress Note - Nurseon 12-27 Progress Note - Nurse [facility] Telemetry Stripson Telemetry Strips [id number]#1.00OTGTIFF [facility] .Auto Diff 1on 01-11-2024 Auto Mifflin % 7 % Normal -12 [facility] Comment on above: Performed By: #### 7 493255, 0478736500, 6760651, 2211732, 15347984 ####[facility] (DEFAULT)[address] [place] [address] 53297 Baso Abs# 0.1 x10 Normal 0.0-0.2 [facility] Comment on above: Performed By: #### 7 365389, 2620114615, 2011624, 2996279, 90159380 ####[facility] (DEFAULT)[address] [place] [address] 48997 Basophils/100 WBC (Bld) 0.8 % Normal 0.2-2.0 [facility] Comment on above: Performed By: #### 7 121324, 4477133499, 1460972, 8197811, 64667187 ####[facility] (DEFAULT)[address] [place] [address] 16299 Eos Abs# 0.1 x10 Normal 0.0-0.4 [facility] Comment on above: Performed By: #### 7 099463, 3003719898, 1003152, 9408041, 52984535 ####[facility] (DEFAULT)[address] [place] [address] 02685 Eosinophils/100 WBC (Bld) 1.1 % Normal 0.9-4.0 [facility] Comment on above: Performed By: #### 7 295053, 7350380688, 4607031, 5599250, 72137355 ####[facility] (DEFAULT)[address] [place] [address] 22261 Lymph Abs# 0.6 x10 Low 1.3-2.9 [facility] Comment on above: Performed By: #### 7 617251, 8581959651, 5152745, 5776635, 92550033 ####[facility] (DEFAULT)[address] [place] [address] 59405 Lymphocytes/100 WBC (Bld) 8 % Low 14-48 [facility] Comment on above: Performed By: #### 7 995955, 5649446678, 1034781, 0747986, 84265515 ####[facility] (DEFAULT)[address] [place] [address] 76119 Mifflin Abs# 0.5 x10 Normal 0.0-0.8 [facility] Comment on above: Performed By: #### 7 032948, 3344610268, 9698633, 1136624, 43649910 ####[facility] (DEFAULT)[address] [place] [address] 54959 Neut Abs# 6.5 x10 Normal 1.5-9.2 [facility] Comment on above: Performed By: #### 7 685125, 5007345852, 8743562, 9351842, 59077886 ####[facility] (DEFAULT)[address] [place] [address] 35741 Neutrophils/100 WBC (Bld) 84 % Normal 44-88 [facility] Comment on above: Performed By: #### 7 507854, 2241479487, 7176917, 2292302, 45020812 ####[facility] (DEFAULT)[address] [place] [address] 56999 BMP Standardon 01-11-2024 eGFR Non AA >60 Invalid Interpretation Code [facility] Comment on above: Performed By: #### 7 238648, 0253012667, 2756010, 4124031, 89927970 ####[facility] (DEFAULT)[address] [place] [address] 11631 eGFR AA >60 Invalid Interpretation Code [facility] Comment on above: Performed By: #### 7 725492, 1317881625, 1330701, 1489349, 82517203 ####[facility] (DEFAULT)[address] [place] [address] 77857 Calcium [Mass/Vol] 8.7 mg/dL Low 8.9-10.3 [facility] Comment on above: Performed By: #### 7 966659, 9090853458, 2874201, 1135938, 45547243 ####[facility] (DEFAULT)[address] [place] [address] 74513 Chloride [Moles/Vol] 106 mmol/L Normal 101-111 [facility] Comment on above: Performed By: #### 7 454240, 4264895895, 2342707, 4774492, 48511236 ####[facility] (DEFAULT)[address] [place] [address] 57086 CO2 [Moles/Vol] 25 mmol/L Normal 21-32 [facility] Comment on above: Performed By: #### 7 982277, 9303505579, 3766878, 1581780, 98852269 ####[facility] (DEFAULT)[address] [place] [address] 24727 Creatinine [Mass/Vol] 0.86 mg/dL Normal 0.60-1.30 [facility] Comment on above: Performed By: #### [id number], [id number], [id number], [id number], [id number] ####[facility] (DEFAULT)[address] [place] [address] 17456 Glucose [Mass/Vol] 83.0 mg/dL Normal 74.0-118.0 [facility] Comment on above: Performed By: #### 7 [id number], [id number], [id number], [id number], [id number] ####[facility] (DEFAULT)[address] [place] [address] 63573 Potassium [Moles/Vol] 3.6 mmol/L Normal 3.6-5.1 [facility] Comment on above: Performed By: #### 7 [id number], [id number], [id number], [id number], [id number] ####[facility] (DEFAULT)[address] [place] [address] 52549 Sodium [Moles/Vol] 140.0 mmol/L Normal 136.0-144.0 [facility] Comment on above: Performed By: #### 7 [id number], [id number], [id number], [id number], [id number] ####[facility] (DEFAULT)[address] [place] [address] 80328 Urea nitrogen [Mass/Vol] 35 mg/dL High 8-26 [facility] Comment on above: Performed By: #### 7 861660, [id number], 0684080, 2870367, 53049167 ####[facility] (DEFAULT)[address] [place] [address] 45584 Anion gap [Moles/Vol] 12.6 mmol/L Normal 5.0-19.0 [facility] Comment on above: Performed By: #### 7 269762, [id number], 6412165, 9178048, 47753307 ####[facility] (DEFAULT)[address] [place] [address] 80739 Osmolality 286 mOsm/L Invalid Interpretation Code [facility] Comment on above: Performed By: #### 7 904701, 7650206025, 0914124, 1551107, 34702191 ####[facility] (DEFAULT)[address] [place] [address] 22363 Urea nitrogen/Creatinine [Mass ratio] 40.6 mg/mg High 4.6-16.2 [facility] Comment on above: Performed By: #### 7 864204, 9045716351, 3859925, 9426363, 40570923 ####[facility] (DEFAULT)[address] [place] [address] CBC w/ Auto Diffon Erythrocyte distribution width (RBC) [Ratio] 17.0 % High 11.5-15.0 [facility] Comment on above: Performed By: #### 7 047043, 2648749984, 5964872, 4399816, 25974152 ####[facility] (DEFAULT)[address] [place] [address] Hematocrit (Bld) [Volume fraction] 29.0 % Low 33.7-40.4 [facility] Comment on above: Performed By: #### 7 159150, 8426136797, 6543549, 6507926, 67029619 ####[facility] (DEFAULT)[address] [place] [address] Hemoglobin (Bld) [Mass/Vol] 10.0 g/dL Low 11.3-15.9 [facility] Comment on above: Performed By: #### 7 538706, 2714922087, 4939494, 7238155, 99388424 ####[facility] (DEFAULT)[address] [place] [address] Man Diff? Auto Invalid Interpretation Code [facility] Comment on above: Performed By: #### 7 399069, 0428435224, 6436822, 3710131, 03001633 ####[facility] (DEFAULT)[address] [place] [address] 94819 MCH (RBC) [Entitic mass] 28 pg Normal 24-34 [facility] Comment on above: Performed By: #### 7 183978, [id number], 6410225, 6284206, 49899853 ####[facility] (DEFAULT)[address] [place] [address] MCHC (RBC) [Mass/Vol] 34 g/dL Normal 26-37 [facility] Comment on above: Performed By: #### 7 268524, 1538958391, 9219408, 6328920, 93075560 ####[facility] (DEFAULT)[address] [place] [address] MCV (RBC) [Entitic vol] 82 fL Normal 81-100 [facility] Comment on above: Performed By: #### 7 367407, 4311419205, 0750445, 5992193, 71141475 ####[facility] (DEFAULT)[address] [place] [address] 50020 Platelet 307 x10 Normal 138-427 [facility] Comment on above: Performed By: #### 7 208798, 7003930922, 9043466, 2464966, 66380277 ####[facility] (DEFAULT)[address] [place] [address] 23449 Platelet mean volume (Bld) [Entitic vol] 7.5 fL Normal 6.3-10.2 [facility] Comment on above: Performed By: #### 7 398188, 0697427561, 8705326, 1405210, 86933633 ####[facility] (DEFAULT)[address] [place] [address] 10638 RBC 3.52 x10 Low 3.70-5.30 [facility] Comment on above: Performed By: #### 7 371659, 3018841025, 0429890, 1473499, 83102566 ####[facility] (DEFAULT)[address] [place] [address] 84649 WBC 7.8 x10 Normal 3.5-10.5 [facility] Comment on above: Performed By: #### 7 456499, 1454852146, 3439531, 6017947, 01434824 ####[facility] (DEFAULT)[address] [place] [address] Magnesiumon 01-11-2024 Magnesium [Mass/Vol] 2.25 mg/dL Normal 1.80-2.50 [facility] Comment on above: Performed By: #### 7 972540, 5015077996, 3865497, 7917192, 46256166 ####[facility] (DEFAULT)[address] [place] [address] 35666 Nutrition Noteon 01-11-2024 Nutrition Note chart reviewed; note patient now has tube feeding supplies and tf ordered Nutren at 50 ml/hr X 14 hours (8a-10p); please see RD note 01/10/2024 for further recs; will continue to follow for tolerance and assist prn; ts Normal [facility] Outside Recordson 01-11-2024 Outside Records [id number]#1.00OTGTIFF [facility] Phoson 01-11-2024 Phosphate [Mass/Vol] 4.3 mg/dL Normal 2.5-4.6 [facility] Comment on above: Performed By: #### 7 544284, 6010534312, 0518572, 2869809, 10770724 ####[facility] (DEFAULT)[address] [place] [address] Progress Note - Nurseon 12-27 Progress Note - Nurse [facility] Telemetry Stripson Telemetry Strips [id number] 01-10-2024 Auto Mifflin % 6 % Normal 06-09 [facility] Comment on above: Performed By: #### 9 463218, 4583279, 9589901, 2664075645, 24088106, 7780425, 8574196, 0619156, 1007488, 4876834 ####[facility] (DEFAULT)[address] [place] [address] Baso Abs# 0.0 x10 Normal 0.0-0.2 [facility] Comment on above: Performed By: #### 9 318388, 5003348, 6606986, 7896039519, 30516685, 2296404, 1878185, 1103286, 0660946, 2130314 ####[facility] (DEFAULT)[address] [place] [address] Basophils/100 WBC (Bld) 0.4 % Normal 0.2-2.0 [facility] Comment on above: Performed By: #### 9 432814, 8123896, 2184668, 6605665895, 47082543, 3930235, 0424951, 6713738, 7847502, 7847191 ####[facility] (DEFAULT)[address] [place] [address] Eos Abs# 0.1 x10 Normal 0.0-0.4 [facility] Comment on above: Performed By: #### 9 992668, 3798278, 0629700, 7402848033, 46938933, 5744227, 5933812, 2969429, 2692820, 7289030 ####[facility] (DEFAULT)[address] [place] [address] 84525 Eosinophils/100 WBC (Bld) 0.9 % Normal 0.9-4.0 [facility] Comment on above: Performed By: #### 9 510279, 9929058, 6626108, 2724860290, 68690741, 9404938, 2963917, 3054982, 7684729, 6259803 ####[facility] (DEFAULT)[address] [place] [address] 61166 Lymph Abs# 0.8 x10 Low 1.3-2.9 [facility] Comment on above: Performed By: #### 9 864048, 3441415, 4818148, 8916612722, 40700530, 7745321, 7440664, 1488319, 5808039, 4552061 ####[facility] (DEFAULT)[address] [place] [address] 20603 Lymphocytes/100 WBC (Bld) 8 % Low 14-48 [facility] Comment on above: Performed By: #### 9 775166, 9035098, 1186433, 2391929540, 32961022, 4125211, 4125492, 2174025, 2642791, 2389898 ####[facility] (DEFAULT)[address] [place] [address] 97399 Mifflin Abs# 0.7 x10 Normal 0.0-0.8 [facility] Comment on above: Performed By: #### 9 226447, 7419215, 1688084, 8232471898, 86626434, 1247147, 3488170, 0170158, 1589874, 4797756 ####[facility] (DEFAULT)[address] [place] [address] Neut Abs# 9.1 x10 Normal 1.5-9.2 [facility] Comment on above: Performed By: #### 9 369982, 9017850, 4162776, 8714790915, 32224656, 0672829, 0938375, 0718792, 9213261, 7036728 ####[facility] (DEFAULT)[address] [place] [address] Neutrophils/100 WBC (Bld) 85 % Normal 44-88 [facility] Comment on above: Performed By: #### 9 644285, 0247764, 5334642, 1903644341, 89152135, 5091777, 2170108, 9894753, 8450539, 6798587 ####[facility] (DEFAULT)[address] [place] [address] Ambulance Noteon 01-10-2024 Ambulance Note [id number]#1.00OTGTIFF Normal [facility] BMP Standardon 01-10-2024 eGFR Non AA >60 Invalid Interpretation Code [facility] Comment on above: Performed By: #### 9 115596, 5420832, 6392561, 8472459822, 19589205, 2754210, 7555061, 1519388, 7905105, 9450028 ####[facility] (DEFAULT)[address] [place] [address] eGFR AA >60 Invalid Interpretation Code [facility] Comment on above: Performed By: #### 9 762460, 5981754, 6824932, 3943542623, 38907672, 4758201, 8148759, 4193252, 9694695, 9932343 ####[facility] (DEFAULT)[address] [place] [address] Anion gap [Moles/Vol] 12.0 mmol/L Normal 5.0-19.0 [facility] Comment on above: Performed By: #### 9 054016, 0834418, 5436771, 9110050356, 65028622, 0842234, 3867778, 2498548, 3806682, 1035361 ####[facility] (DEFAULT)[address] [place] [address] 24023 Calcium [Mass/Vol] 8.8 mg/dL Low 8.9-10.3 [facility] Comment on above: Performed By: #### 9 007224, 6174680, 8306276, 1823767818, 51064730, 2315390, 7260917, 8568425, 8451691, 4603422 ####[facility] (DEFAULT)[address] [place] [address] 01162 Chloride [Moles/Vol] 109 mmol/L Normal 101-111 [facility] Comment on above: Performed By: #### 9 931826, 6665928, 9621535, 5099704247, 15195415, 7607619, 0672439, 3006752, 6613315, 4606674 ####[facility] (DEFAULT)[address] [place] [address] 55188 CO2 [Moles/Vol] 25 mmol/L Normal 21-32 [facility] Comment on above: Performed By: #### 9 223556, 8657127, 3311081, 3022524596, 25785050, 6830908, 7538016, 5852949, 4649964, 3349376 ####[facility] (DEFAULT)[address] [place] [address] 22150 Creatinine [Mass/Vol] 0.91 mg/dL Normal 0.60-1.30 [facility] Comment on above: Performed By: #### 9 113040, 6479460, 1189247, 5540510269, 10215999, 0572350, 9702403, 2943153, 8540134, 6408038 ####[facility] (DEFAULT)[address] [place] [address] 41294 Glucose [Mass/Vol] 90.0 mg/dL Normal 74.0-118.0 [facility] Comment on above: Performed By: #### 9 878986, 6776087, 5322961, 9968840888, 20392328, 7939716, 7455771, 2385274, 3532008, 8932270 ####[facility] (DEFAULT)[address] [place] [address] 12860 Osmolality 292 mOsm/L Invalid Interpretation Code [facility] Comment on above: Performed By: #### 9 933629, 4776484, 7984464, 5074721345, 31592313, 4682524, 9574556, 1134797, 1773024, 8599050 ####[facility] (DEFAULT)[address] [place] [address] 02080 Potassium [Moles/Vol] 4.0 mmol/L Normal 3.6-5.1 [facility] Comment on above: Performed By: #### 9 357667, 8588775, 1476202, 6444271425, 39357016, 2016875, 8200223, 6157392, 5534427, 6379221 ####[facility] (DEFAULT)[address] [place] [address] 27843 Sodium [Moles/Vol] 142.0 mmol/L Normal 136.0-144.0 [facility] Comment on above: Performed By: #### 9 139096, 8122440, 1934395, 6155441600, 83245137, 2360958, 1481611, 5618304, 0738056, 5621373 ####[facility] (DEFAULT)[address] [place] [address] 53002 Urea nitrogen [Mass/Vol] 38 mg/dL High 8-26 [facility] Comment on above: Performed By: #### 9 483647, 1600054, 6378515, 0089556153, 68306701, 1100196, 6519742, 8796903, 3053910, 0465977 ####[facility] (DEFAULT)[address] [place] [address] 86144 Urea nitrogen/Creatinine [Mass ratio] 41.7 mg/mg High 4.6-16.2 [facility] Comment on above: Performed By: #### 9 819920, 7926020, 4729031, 1485676768, 10678076, 1588185, 4309091, 4910142, 0956466, 1757777 ####[facility] (DEFAULT)[address] [place] [address] CBC w/ Auto Diffon 4 Erythrocyte distribution width (RBC) [Ratio] 17.7 % High 11.5-15.0 [facility] Comment on above: Performed By: #### 9 397399, 4027431, 8241850, 9648904853, 97588441, 0074308, 4206100, 7112863, 6744790, 6643399 ####[facility] (DEFAULT)[address] [place] [address] Hematocrit (Bld) [Volume fraction] 32.3 % Low 33.7-40.4 [facility] Comment on above: Performed By: #### 9 594931, 6216979, 3816441, 5249273960, 02879232, 8017420, 3993132, 5348508, 3216940, 9174520 ####[facility] (DEFAULT)[address] [place] [address] Hemoglobin (Bld) [Mass/Vol] 11.1 g/dL Low 11.3-15.9 [facility] Comment on above: Performed By: #### 9 196847, 3925109, 1038253, 5337552461, 94373987, 9155516, 1689868, 2368685, 8145211, 7160372 ####[facility] (DEFAULT)[address] [place] [address] Man Diff? Auto Invalid Interpretation Code [facility] Comment on above: Performed By: #### 9 478443, 6325876, 3397840, 3727633186, 36608933, 4845607, 0276727, 5438275, 6313439, 0958654 ####[facility] (DEFAULT)[address] [place] [address] MCH (RBC) [Entitic mass] 28 pg Normal 24-34 [facility] Comment on above: Performed By: #### 9 035825, 3548627, 2587351, 7219806792, 35860015, 5985472, 8688227, 9483532, 5561392, 4547516 ####[facility] (DEFAULT)[address] [place] [address] MCHC (RBC) [Mass/Vol] 34 g/dL Normal 26-37 [facility] Comment on above: Performed By: #### 9 082844, 8174300, 2377752, 7967909161, 15728976, 4623580, 8832890, 7611739, 8402335, 4774577 ####[facility] (DEFAULT)[address] [place] [address] MCV (RBC) [Entitic vol] 82 fL Normal 81-100 [facility] Comment on above: Performed By: #### 9 509278, 8846115, 0708068, 2592084702, 45207299, 4265498, 0203757, 8457941, 3195402, 0348966 ####[facility] (DEFAULT)[address] [place] [address] Platelet 340 x10 Normal 138-427 [facility] Comment on above: Performed By: #### 9 157959, 3913305, 4946252, 2008953407, 67899189, 2685488, 8542351, 5861803, 5294188, 3921360 ####[facility] (DEFAULT)[address] [place] [address] Platelet mean volume (Bld) [Entitic vol] 7.5 fL Normal 6.3-10.2 [facility] Comment on above: Performed By: #### 9 275066, 0038365, 3008782, 2304171585, 04035518, 6982462, 6506569, 6188948, 7765808, 1861928 ####[facility] (DEFAULT)[address] [place] [address] RBC 3.94 x10 Normal 3.70-5.30 [facility] Comment on above: Performed By: #### 9 951795, 6730989, 2513749, 4872022242, 70563883, 8780597, 1975567, 4942788, 6467146, 2640192 ####[facility] (DEFAULT)[address] [place] [address] WBC 10.8 x10 High 3.5-10.5 [facility] Comment on above: Performed By: #### 9 388428, 9192291, 2083368, 0741229987, 57475413, 6866637, 0568621, 0797064, 8603533, 4002214 ####[facility] (DEFAULT)[address] [place] [address] Consent Formson 01-10-2024 Consent Forms [id number]#1.00OTGTIFF [facility] ED Note-Nursingon 01-10-2024 ED Note-Nursing Patient admitted to [address] [place] [address], attending physician to further review the final rad report [facility] Ferritinon 01-10-2024 Ferritin [Mass/Vol] 251.8 ng/mL High 12.0-150.0 [facility] Comment on above: Performed By: #### 9 754634, 0503230, 8009058, 9683000947, 14588903, 1443286, 3905545, 1294488, 6278236, 4973319 ####[facility] (DEFAULT)[address] [place] [address] Free T4on 01-10-2024 Free T4 [Mass/Vol] 0.53 ng/dL Low 0.61-1.12 [facility] Comment on above: Performed By: #### 9 447679, 5240316, 9878274, 7886904390, 61740124, 3690262, 5198210, 9684671, 2227571, 1254273 ####[facility] (DEFAULT)[address] [place] [address] Iron Levelon 01-10-2024 Iron [Mass/Vol] 57.0 ug/dL Normal 28.0-170.0 [facility] Comment on above: Performed By: #### 9 051661, 2777873, 3114808, 1092090367, 14185220, 3212347, 7765990, 9675096, 0728017, 1934178 ####[facility] (DEFAULT)[address] [place] [address] Magnesiumon 01-10-2024 Magnesium [Mass/Vol] 2.31 mg/dL Normal 1.80-2.50 [facility] Comment on above: Performed By: #### 9 605349, 2550019, 0857183, 5229449234, 26914756, 7372297, 4994865, 2661148, 8927434, 2504685 ####[facility] (DEFAULT)[address] [place] [address] 95048 Nutrition Noteon 01-10-2024 Nutrition Note Normal [facility] POCT Glucose Levelon 024 Glucose [Mass/Vol] 82 mg/dL Normal 74-118 [facility] Comment on above: Result Comment: OPR_ ID=[email or web address],TGC FLAG = False,Meter:[id number]:[id number] Michael Watts Performed By: #### 4 [id number] ####[facility] (DEFAULT)[address] [place] [address] 62596 Phoson 01-10-2024 Phosphate [Mass/Vol] 4.1 mg/dL Normal 2.5-4.6 [facility] Comment on above: Performed By: #### 9 924247, 5867556, 1236956, 5316538570, 40713777, 7652202, 7334481, 2513776, 4696879, 2848721 ####[facility] (DEFAULT)[address] [place] [address] 37395 Progress Note - Nurseon 12-27 Progress Note - Nurse Normal [facility] Progress Note - Nurse No order at this t juan carlos for tube feeding. [Electronically Signed on: 01/10/2024 15:43 EDT] Marsha Franco RN [Verified on: 01/10/2024 15:43 EDT] Marsha Franco RN Normal [facility] TSHon 01-10-2024 TSH Qn m[IU]/L High 0.45-5.33 [facility] Comment on above: Performed By: #### 9 101006, 9450449, 4582806, 0460927674, 83376426, 4923785, 2674956, 1940146, 8231714, 9067326 ####[facility] (DEFAULT)[address] [place] [address] TnI HSon 01-10-2024 Troponin I High Sensitivity 16.7 pg/mL Critically abnormal <=15.0 [facility] Comment on above: Result Comment: Crit ical result TNIHS 16.7 pg/mL called to and read back by Brian Quintana on [address] at 10-Jan-2024 06:34 by Aime. Performed By: #### 5 [id number] ####[facility] (DEFAULT)[address] [place] [address] Troponin I High Sensitivity 21.1 pg/mL Critically abnormal <=15.0 [facility] Comment on above: Result Comment: Crit ical result TNIHS 21.1 pg/mL called to and read back by brian quintana at 10-Jan-2024 00:40 by kishor. Performed By: #### 5 [id number] ####[facility] (DEFAULT)[address] [place] [address] 89637 US Echocardiogram Completeon 01-10-2024 US Echocardiogram Complete Normal [facility] Vit B12 Lvlon 01-10-2024 Vit B12 605 Normal 180-914 [facility] Comment on above: Performed By: #### 9 393228, 9205430, 7451798, 5504245831, 72179498, 1395305, 3083482, 9412372, 5805752, 8110651 ####[facility] (DEFAULT)[address] [place] [address] 29105 .Auto Diff 01-09-2024 Auto Mifflin % 5 % Normal -12 [facility] Comment on above: Performed By: #### 5 239086989, 68085071, 7823861, 8084354, 4454477072, 6488715200, 8344648022 ####[facility] (DEFAULT)[address] [place] [address] Baso Abs# 0.0 x10 Normal 0.0-0.2 [facility] Comment on above: Performed By: #### 5 926737359, 85951778, 7543017, 3949776, 3414944798, 8055741769, 4687039113 ####[facility] (DEFAULT)[address] [place] [address] 85957 Basophils/100 WBC (Bld) 0.3 % Normal 0.2-2.0 [facility] Comment on above: Performed By: #### 5 117908128, 53874494, 4702609, 5086714, 9867697132, 1607744458, 1403597637 ####[facility] (DEFAULT)[address] [place] [address] 77119 Eos Abs# 0.0 x10 Normal 0.0-0.4 [facility] Comment on above: Performed By: #### 5 929117403, 18518540, 7529220, 3939149, 7085062555, 9222435991, 7111563306 ####[facility] (DEFAULT)[address] [place] [address] 45569 Eosinophils/100 WBC (Bld) 0.1 % Low 0.9-4.0 [facility] Comment on above: Performed By: #### 5 958086590, 74630630, 3696240, 0269851, 3712223519, 9853017711, 7873706370 ####[facility] (DEFAULT)[address] [place] [address] 18638 Lymph Abs# 0.4 x10 Low 1.3-2.9 [facility] Comment on above: Performed By: #### 5 381529139, 62870774, 2226782, 7155513, 8826262204, 7010726726, 3329619437 ####[facility] (DEFAULT)[address] [place] [address] 57551 Lymphocytes/100 WBC (Bld) 4 % Low 14-48 [facility] Comment on above: Performed By: #### 5 031289082, 56350459, 5028695, 6379194, 8754855061, 2255872547, 8939653462 ####[facility] (DEFAULT)[address] [place] [address] 21576 Mifflin Abs# 0.5 x10 Normal 0.0-0.8 [facility] Comment on above: Performed By: #### 5 923555013, 90402914, 1479207, 4049728, 3812677096, 8394907554, 9134248018 ####[facility] (DEFAULT)[address] [place] [address] Neut Abs# 9.0 x10 Normal 1.5-9.2 [facility] Comment on above: Performed By: #### 5 194322754, 71037041, 6072629, 8365789, 6873720785, 2112682923, 9965200169 ####[facility] (DEFAULT)[address] [place] [address] 60714 Neutrophils/100 WBC (Bld) 90 % High 44-88 [facility] Comment on above: Performed By: #### 5 117882655, 12933480, 3357435, 2010548, 4300278515, 5682806461, 6717844355 ####[facility] (DEFAULT)[address] [place] [address] 84417 CBC w/ Auto Diffon 4 Erythrocyte distribution width (RBC) [Ratio] 17.6 % High 11.5-15.0 [facility] Comment on above: Performed By: #### 5 527086911, 93803504, 6576336, 1331570, 0415736382, 4461711546, 7432568420 ####[facility] (DEFAULT)[address] [place] [address] 73327 Hematocrit (Bld) [Volume fraction] 37.5 % Normal 33.7-40.4 [facility] Comment on above: Performed By: #### 5 537803215, 23285462, 7166668, 6061268, 8957287551, 1105638285, 8984811544 ####[facility] (DEFAULT)[address] [place] [address] 63826 Hemoglobin (Bld) [Mass/Vol] 12.5 g/dL Normal 11.3-15.9 [facility] Comment on above: Performed By: #### 5 957907379, 68180901, 5830620, 9749989, 5907339084, 2632665178, 5586916181 ####[facility] (DEFAULT)[address] [place] [address] Man Diff? Auto Invalid Interpretation Code [facility] Comment on above: Performed By: #### 5 969683360, 68507552, 7368348, 3733429, 0868878958, 2068898849, 3011954248 ####[facility] (DEFAULT)[address] [place] [address] 22604 MCH (RBC) [Entitic mass] 27 pg Normal 24-34 [facility] Comment on above: Performed By: #### 5 212070637, 60152796, 7132298, [id number], [id number], [id number], [id number] ####[facility] (DEFAULT)[address] [place] [address] 41154 MCHC (RBC) [Mass/Vol] 33 g/dL Normal 26-37 [facility] Comment on above: Performed By: #### 5 [id number], [id number], [id number], [id number], [id number], [id number], [id number] ####[facility] (DEFAULT)[address] [place] [address] 55048 MCV (RBC) [Entitic vol] 82 fL Normal 81-100 [facility] Comment on above: Performed By: #### 5 [id number], [id number], 4945434, [id number], [id number], [id number], [id number] ####[facility] (DEFAULT)[address] [place] [address] 40124 Platelet 444 x10 High 138-427 [facility] Comment on above: Performed By: #### 5 [id number], [id number], 0271553, 4923109, [id number], [id number], [id number] ####[facility] (DEFAULT)[address] [place] [address] 74481 Platelet mean volume (Bld) [Entitic vol] 7.6 fL Normal 6.3-10.2 [facility] Comment on above: Performed By: #### 5 [id number], [id number], 3812299, 9470439, [id number], [id number], [id number] ####[facility] (DEFAULT)[address] [place] [address] RBC 4.54 x10 Normal 3.70-5.30 [facility] Comment on above: Performed By: #### 5 [id number], [id number], [id number], [id number], [id number], [id number], [id number] ####[facility] (DEFAULT)[address] [place] [address] 66369 WBC 10.0 x10 Normal 3.5-10.5 [facility] Comment on above: Performed By: #### 5 [id number], 17385155, 8154373, 5298314, [id number], [id number], [id number] ####[facility] (DEFAULT)[address] [place] [address] 12348 CMP Standardon 01-09-2024 eGFR Non AA 43 mL/min/1.73m2 Invalid Interpretation Code [facility] Comment on above: Performed By: #### 5 [id number], 82132363, 7654927, 2053735, 8515521334, [id number], [id number] ####[facility] (DEFAULT)[address] [place] [address] 37558 eGFR AA 52 mL/min/1.73m2 Invalid Interpretation Code [facility] Comment on above: Performed By: #### 5 [id number], 50706028, 3602409, 9045888, [id number], 6460496911, 3240713857 ####[facility] (DEFAULT)[address] [place] [address] 04403 Albumin [Mass/Vol] 4.5 g/dL Normal 3.5-5.0 [facility] Comment on above: Performed By: #### 5 [id number], 80582300, 4657178, 8298798, 4928067078, 9747192602, 6773202927 ####[facility] (DEFAULT)[address] [place] [address] 71901 Albumin/Globulin [Mass ratio] 1.1 {ratio} Low 1.4-2.6 [facility] Comment on above: Performed By: #### 5 [id number], 55972739, 1068809, 2066071, 9664319059, 3278173541, 2240608492 ####[facility] (DEFAULT)[address] [place] [address] 11955 Alk Phos 150 IU/L High 32-91 [facility] Comment on above: Performed By: #### 5 [id number], 68555934, 2041612, 6737502, 2470095898, 8785247647, 4097604760 ####[facility] (DEFAULT)[address] [place] [address] 15385 ALT [Catalytic activity/Vol] 170.0 U/L High 14.0-54.0 [facility] Comment on above: Performed By: #### 5 647681564, 08053785, 6026497, 8485878, 4029959716, 2551309611, 2808897501 ####[facility] (DEFAULT)[address] [place] [address] 08268 Anion gap [Moles/Vol] 16.7 mmol/L Normal 5.0-19.0 [facility] Comment on above: Performed By: #### 5 529120539, 48207325, 5567827, 2783202, 6747243533, 3825020554, 8114450223 ####[facility] (DEFAULT)[address] [place] [address] 19557 AST [Catalytic activity/Vol] 146 U/L High 15-41 [facility] Comment on above: Performed By: #### 5 251823455, 98246286, 6497620, 5745004, 2299281383, 1504223221, 8765592986 ####[facility] (DEFAULT)[address] [place] [address] 64772 Bili Total 0.9 mg/dL Normal 0.3-1.2 [facility] Comment on above: Performed By: #### 5 254153531, 31676748, 7974296, 5196286, 7593488583, 8706432580, 4686283734 ####[facility] (DEFAULT)[address] [place] [address] 87894 Calcium [Mass/Vol] 9.8 mg/dL Normal 8.9-10.3 [facility] Comment on above: Performed By: #### 5 427480820, 96808058, 9455671, 7339940, 5891394594, 9531682311, 1837961807 ####[facility] (DEFAULT)[address] [place] [address] 00797 Chloride [Moles/Vol] 104 mmol/L Normal 101-111 [facility] Comment on above: Performed By: #### 5 [id number], 34288101, 8533100, 5751178, 1996920712, 8388925505, 6511358800 ####[facility] (DEFAULT)[address] [place] [address] 36258 CO2 [Moles/Vol] 23 mmol/L Normal 21-32 [facility] Comment on above: Performed By: #### 5 [id number], 50861174, 6393212, 4893337, 4811172662, 3602613167, 3017080115 ####[facility] (DEFAULT)[address] [place] [address] 91379 Creatinine [Mass/Vol] 1.27 mg/dL Normal 0.60-1.30 [facility] Comment on above: Performed By: #### 5 941953189, 04920269, 1433897, 5476853, 3639160108, 7413186395, 2890659809 ####[facility] (DEFAULT)[address] [place] [address] 03621 Globulin (S) [Mass/Vol] 3.9 g/dL Normal 1.5-4.3 [facility] Comment on above: Performed By: #### 5 855676973, 12456935, 5894947, 0173380, 5121153128, 5718506627, 9438466991 ####[facility] (DEFAULT)[address] [place] [address] 72465 Glucose [Mass/Vol] 91.0 mg/dL Normal 74.0-118.0 [facility] Comment on above: Performed By: #### 5 996418631, 61487228, 4736060, 0514856, 4625127653, 2908290577, 4419373125 ####[facility] (DEFAULT)[address] [place] [address] 34038 Osmolality 291 mOsm/L Invalid Interpretation Code [facility] Comment on above: Performed By: #### 5 092258724, 86416854, 5271336, 4802766, 5346100629, 4887568735, 5932380285 ####[facility] (DEFAULT)[address] [place] [address] 43730 Potassium [Moles/Vol] 4.7 mmol/L Normal 3.6-5.1 [facility] Comment on above: Performed By: #### 5 521611863, 09256394, 3924062, 9145504, 1351621760, 6475865894, 3583680086 ####[facility] (DEFAULT)[address] [place] [address] 24030 Protein [Mass/Vol] 8.4 g/dL High 6.5-8.1 [facility] Comment on above: Performed By: #### 5 524589691, 31509187, 0955549, 1722204, 9603767248, 6645154789, 1722171836 ####[facility] (DEFAULT)[address] [place] [address] 02470 Sodium [Moles/Vol] 139.0 mmol/L Normal 136.0-144.0 [facility] Comment on above: Performed By: #### 5 341868255, 48084755, 4242985, 8041184, 6992278703, 0350263436, 2417807133 ####[facility] (DEFAULT)[address] [place] [address] 59371 Urea nitrogen [Mass/Vol] 51 mg/dL High 8- [facility] Comment on above: Performed By: #### 5 944460582, 21601597, 6541588, 7895577, 8302042245, 1468720273, 1554549573 ####[facility] (DEFAULT)[address] [place] [address] 51457 Urea nitrogen/Creatinine [Mass ratio] 40.1 mg/mg High 4.6-16.2 [facility] Comment on above: Performed By: #### 5 234000588, 62216908, 5019817, 0838880, 5622526793, 3351168086, 4375444953 ####[facility] (DEFAULT)[address] [place] [address] PE Chest w/ Contraston CT PE Chest w/ Contrast Normal [facility] D-Dimeron 01-09-2024 D-Dimer 3.56 mg/L FEU High 0.19-0.50 [facility] Comment on above: Result Comment: Resu lts Called To Kush Rivera By ekta And Read Back For Confirmation On 01/09/2024 18:05:35 EDT.The INNOVANCE D-Dimer assay (Cutoff Value of > 0.50) is intended for the use as an aid in the diagnosis of venous thromboembolism (VTE) deep vein thrombosis (DVT) or pulmonary embolism (PE). The measurement of D-Dimer should not be used as an aid in the diagnosis of VTE in patients with:? Therapeutic dose anticoagulant therapy for >24 hours? Fibrinolytic therapy within previous 7 days? Trauma or surgery within previous 4 weeks? Disseminated malignancies? Aortic aneurysm? Sepsis, sever infections, pneumonia, severe skin infections? Liver cirrhosis ? Performed By: #### 5 [id number], 3203169 ####[facility] (DEFAULT)[address] [place] [address] 15925 ED Clinical Summaryon 2023 ED Clinical Summary Normal [facility] ED Note - Physicianon 2023 ED Note - Physician Normal [facility] ED Patient Education Noteon 01-09-2024 ED Patient Education Note Education Materials Normal [facility] ED Patient Summaryon 024 ED Patient Summary Normal [facility] Extra Redon 01-09-2024 Tube Collected Yes Invalid Interpretation Code [facility] Comment on above: Performed By: #### 5 [id number], 09018437, 4699188, 5736428, 2877146574, 1940687729, 4122268200 ####[facility] (DEFAULT)[address] [place] [address] 10218 Magnesiumon 01-09-2024 Magnesium [Mass/Vol] 2.54 mg/dL High 1.80-2.50 [facility] Comment on above: Performed By: #### 5 485614573, 02692584, 5745063, 1912881, 1846975272, 8987322287, 3698164239 ####[facility] (DEFAULT)[address] [place] [address] 78093 Progress Note - Nurseon 12-27 Progress Note - Nurse Normal [facility] Progress Note - Nurse Normal [facility] Progress Note - Nurse Normal [facility] TnI HSon 01-09-2024 Troponin I High Sensitivity 19.6 pg/mL Critically abnormal <=15.0 [facility] Comment on above: Result Comment: Crit ical result TNIHS 19.6 pg/mL called to and read back by Dr. Thorne at 09-Jan-2024 18:29 by LEVON. Performed By: #### 5 [id number], 7694120 ####[facility] (DEFAULT)[address] [place] [address] 63755 Troponin I High Sensitivity 13.3 pg/mL Normal <=15.0 [facility] Comment on above: Performed By: #### 5 010877820 ####[facility] (DEFAULT)[address] [place] [address] 73518 Troponin I High Sensitivity 21.4 pg/mL Critically abnormal <=15.0 [facility] Comment on above: Result Comment: Crit ical result TNIHS 21.4 pg/mL called to and read back by Mindy Santiago in ER at 09-Jan-2024 13:04 by Aime. Performed By: #### 5 [id number], 19793356, 4518086, 1526223, 9449496710, 1959029364, 3306753907 ####[facility] (DEFAULT)[address] [place] [address] 07884 UA Bbsxz5pi 01-09-2024 UA Amorph. Few Normal [facility] Comment on above: Order Comment: Urina lysis Microscopic order added on by Communication Intelligence Expert Rules system. Performed By: #### 5 5144484, 7468241041 ####[facility] (DEFAULT)[address] [place] [address] 67067 UA Bacteria None Normal [facility] Comment on above: Order Comment: Urina lysis Microscopic order added on by Communication Intelligence Expert Rules system. Performed By: #### 5 8935329, [id number] ####[facility] (DEFAULT)[address] [place] [address] 02208 UA RBC None [facility] Comment on above: Order Comment: Urina lysis Microscopic order added on by Communication Intelligence Expert Rules system. Performed By: #### 5 [id number], 7613454441 ####[facility] (DEFAULT)[address] [place] [address] 72125 UA Squam Epi Rare Normal [facility] Comment on above: Order Comment: Urina lysis Microscopic order added on by Communication Intelligence Expert Rules system. Performed By: #### 5 8297471, [id number] ####[facility] (DEFAULT)[address] [place] [address] 14277 UA WBC None [facility] Comment on above: Order Comment: Urina lysis Microscopic order added on by Communication Intelligence Expert Rules system. Performed By: #### 5 3993759, [id number] ####[facility] (DEFAULT)[address] [place] [address] 19459 UA w Micro, if Ind Standardo n 01-09-2024 Breakpoint [facility] Comment on above: Performed By: #### 5 8242229, [id number] ####[facility] (DEFAULT)[address] [place] [address] 92529 Color (U) Yellow Normal [facility] Comment on above: Performed By: #### 5 3416422, 9776966846 ####[facility] (DEFAULT)[address] [place] [address] 72434 Glucose (U) [Mass/Vol] Negative [facility] Comment on above: Performed By: #### 5 6168651, [id number] ####[facility] (DEFAULT)[address] [place] [address] 99139 Ketones Ql (U) 15 Normal [facility] Comment on above: Performed By: #### 5 9979045, 2403588566 ####[facility] (DEFAULT)[address] [place] [address] Micro? Indicated Invalid Interpretation Code [facility] Comment on above: Result Comment: Resu lt created by rule GL_MAGR_ADD_UA_MICRO Performed By: #### 5 [id number], ####[facility] (DEFAULT)[address] [place] [address] 74527 UA Bilirubin Negative Normal [facility] Comment on above: Performed By: #### 5 9990964, 7476984032 ####[facility] (DEFAULT)[address] [place] [address] 19130 UA Blood Negative Normal NEGATIVE [facility] Comment on above: Performed By: #### 5 2975136, 6301177529 ####[facility] (DEFAULT)[address] [place] [address] 80188 UA Clarity CLEAR Normal CLEAR [facility] Comment on above: Performed By: #### 5 8686533, ####[facility] (DEFAULT)[address] [place] [address] 70518 UA Leuk Est Negative Normal NEGATIVE [facility] Comment on above: Performed By: #### 5 5747760, ####[facility] (DEFAULT)[address] [place] [address] 03024 UA Nitrite Negative Normal NEGATIVE [facility] Comment on above: Performed By: #### 5 6771582, 0398960312 ####[facility] (DEFAULT)[address] [place] [address] 25851 UA pH 8.0 Normal 5-8 [facility] Comment on above: Performed By: #### 5 0232964, [id number] ####[facility] (DEFAULT)[address] [place] [address] 42392 UA Protein 30 Abnormal NEGATIVE [facility] Comment on above: Performed By: #### 5 5511175, 3850373610 ####[facility] (DEFAULT)[address] [place] [address] 17680 UA Spec Grav 1.015 Normal 1.001-1.035 [facility] Comment on above: Performed By: #### 5 5021670, 1120913124 ####[facility] (DEFAULT)[address] [place] [address] 91213 UA Urobilinogen 2.0 mg/dL Abnormal 0.2-1.0 [facility] Comment on above: Performed By: #### 5 0540920, [id number] ####[facility] (DEFAULT)[address] [place] [address] 00674 Urine Source Clean Catch Normal [facility] Comment on above: Performed By: #### 5 0733707, [id number] ####[facility] (DEFAULT)[address] [place] [address] 97583 CASE MANAGEMon 01-05-2024 CASE MANAGEM Normal [facility] CASE MANAGEM Normal [facility] CNDSon 01-05-2024 CNDS Normal [facility] CONSULTon 01-05-2024 CONSULT Normal [facility] Hepatic function 2000 panelo n 01-05-2024 ALP [Catalytic activity/Vol] 137 U/L High 34-123 [facility] Comment on above: Order Comment: Speci men Type: BLOOD SPECIMENOrdering Facility: [facility] Address: [address] [place] [address] Performed By: #### 1 9123-9, 62841-5, 99373-6 ####[facility]ATORYCLIA [id number] [facility] [place] [address] [place] ALT [Catalytic activity/Vol] 140 U/L High 7-38 [facility] Comment on above: Order Comment: Speci men Type: BLOOD SPECIMENOrdering Facility: [facility] Address: [address] [place] [address] Performed By: #### 1 9123-9, 89187-5, 88309-0 ####[facility]ORATORYCLIA [id number] [place] [address] [place] AST [Catalytic activity/Vol] 37 U/L High 13-35 [facility] Comment on above: Order Comment: Speci men Type: BLOOD SPECIMENOrdering Facility: [facility] Address: [address] [place] [address] Performed By: #### 1 9123-9, 39154-2, 09043-7 ####[facility]ITAL[facility] [id number] [place] [address] [place] Bilirubin [Mass/Vol] 0.3 mg/dL Normal 0.2-1.3 [facility] Comment on above: Order Comment: Speci men Type: BLOOD SPECIMENOrdering Facility: [facility] Address: [address] [place] [address] Performed By: #### 1 9123-9, 54997-7, 51290-7 ####[facility] LABORATORYIA [id number] [place] [address] [place] Bilirubin.conjugated [Mass/Vol] mg/dL Normal <0.2 [facility] Comment on above: Order Comment: Speci men Type: BLOOD SPECIMENOrdering Facility: [facility] Address: [address] [place] [address] Performed By: #### 1 9123-9, 12581-6, 65873-3 ####[facility]ORATORYCLIA [id number] [place] [address] [place] Protein [Mass/Vol] 5.7 g/dL Low 6.3-8.0 [facility] Comment on above: Order Comment: Speci men Type: BLOOD SPECIMENOrdering Facility: [facility] Address: [address] [place] [address] Performed By: #### 1 9123-9, 01117-4, 26805-0 ####[facility]ORATORYCLIA [id number] [place] [address] [facility] Magnesium SerPl-mCncon 01-04 Magnesium [Mass/Vol] 2.1 mg/dL Normal 1.7-2.3 [facility] Comment on above: Order Comment: Speci men Type: BLOOD SPECIMENOrdering Facility: [facility] Address: [address] [place] [address] Performed By: #### 1 9123-9, 60774-4, 45171-6 ####[facility]ATORYCLIA [id number] [place] [address] [facility] [place] NURSING PROGon 01-05-2024 NURSING PROG Normal [facility] Renal Func 1999 Pnl SerPlon 01-05-2024 Albumin [Mass/Vol] 3.4 g/dL Low 3.9-4.9 [facility] Comment on above: Order Comment: Speci men Type: BLOOD SPECIMENOrdering Facility: [facility] Address: [address] [place] [address] Performed By: #### 1 9123-9, 95010-5, 28773-5 ####[facility]ORATORYCLIA [id number] [place] [address] [facility] [place] Renal function 2000 panelon 01-05-2024 Anion gap [Moles/Vol] 10 mmol/L Normal 8-15 [facility] Comment on above: Order Comment: Speci men Type: BLOOD SPECIMENOrdering Facility: [facility] Address: [address] [place] [address] Performed By: #### 1 9123-9, 00660-1, 74850-3 ####[facility]ORATORYCLIA [id number] [place] [address] [place] Calcium [Mass/Vol] 8.3 mg/dL Low 8.5-10.2 [facility] Comment on above: Order Comment: Speci men Type: BLOOD SPECIMENOrdering Facility: [facility] Address: [address] [place] [address] Performed By: #### 1 9123-9, 24531-4, 21332-6 ####[facility]ORATORYCLIA [id number] [place] [address] [place] Chloride [Moles/Vol] 102 mmol/L Normal 98-107 [facility] Comment on above: Order Comment: Speci men Type: BLOOD SPECIMENOrdering Facility: [facility] Address: [address] [place] [address] Performed By: #### 1 9123-9, 21125-1, 03804-4 ####[facility]ORATORYCLIA [id number] [place] [address] [place] CO2 [Moles/Vol] 24 mmol/L Normal 22-30 [facility] Comment on above: Order Comment: Speci men Type: BLOOD SPECIMENOrdering Facility: [facility] Address: [address] [place] [address] Performed By: #### 1 9123-9, 07643-3, 04575-5 ####[facility]ORATORYCLIA [id number] [place] [address] [place] Creatinine [Mass/Vol] 0.65 mg/dL Normal 0.58-0.96 [facility] Comment on above: Order Comment: Speci men Type: BLOOD SPECIMENOrdering Facility: [facility] Address: [address] [place] [address] Performed By: #### 1 9123-9, 70458-5, 38709-2 ####[facility] LABORATORYCLIA [id number] [place] [address] [place] Creatinine and Glomerular filtration rate.predicted panel (S/P/Bld) 100 mL/min/1.73m??? Normal >=60 [facility] Comment on above: Order Comment: Speci men Type: BLOOD SPECIMENOrdering Facility: [facility] Address: [address] [place] [address] Result Comment: Tuyet mated Glomerular Filtration Rate (eGFR) is calculated using the 2020 CKD-EPI creatinine equation. This equation utilizes serum creatinine, sex, and age as parameters. The creatinine assay has traceable calibration to isotope dilution-mass spectrometry. Refer to KDIGO guidelines for clinical interpretation. In patients with unstable renal function, e.g. those with acute kidney injury, the eGFR may not accurately reflect actual GFR. Performed By: #### 1 9123-9, 45153-8, 54903-0 ####[facility] LABORATORYCLIA [id number] [place] [address] [place] Glucose [Mass/Vol] 83 mg/dL Normal 74-99 [facility] Comment on above: Order Comment: Nicolle phipps Type: BLOOD SPECIMENOrdering Facility: [facility] Address: [address] [place] [address] Result Comment: The [place] Diabetes Association (ADA) provides guidance for cutoff values for fasting glucose and random glucose. The ADA defines fasting as no caloric intake for at least 8 hours. Fasting plasma glucose results between 100 to 125 mg/dL indicate increased risk for diabetes (prediabetes).Fasting plasma glucose results greater than or equal to 126 mg/dL meet the criteria for diagnosis of diabetes. In the absence of unequivocal hyperglycemia, results should be confirmed by repeat testing. In a patient with classic symptoms of hyperglycemia or hyperglycemic crisis, random plasma glucose results greater than or equal to 200 mg/dL meet the criteria for diagnosis of diabetes.Reference: Standards of Medical Care in Diabetes 2016, [place] Diabetes Association. Diabetes Care. 2016.39(Suppl 1). Performed By: #### 1 9123-9, 36666-9, 67505-9 ####[facility]ORATORYCLIA [id number] [place] [address] [place] Phosphate [Mass/Vol] 2.2 mg/dL Low 2.7-4.8 [facility] Comment on above: Order Comment: [facility] Type: BLOOD SPECIMENOrdering Facility: [facility] Address: [address] [address] Performed By: #### 1 9123-9, 39534-8, 13723-1 ####[facility]ORATORYCLIA [id number] [place] [address] [place] Potassium [Moles/Vol] 4.2 mmol/L Normal 3.7-5.1 [facility] Comment on above: Order Comment: Speci men Type: BLOOD SPECIMENOrdering Facility: [facility] Address: [address] [place] [address] Performed By: #### 1 9123-9, 72573-9, 09694-1 ####[facility]ITALCLIA [id number] [place] [address] [place] Sodium [Moles/Vol] 136 mmol/L Normal 136-144 [facility] Comment on above: Order Comment: Speci men Type: BLOOD SPECIMENOrdering Facility: [facility] Address: [address] [place] [address] Performed By: #### 1 9123-9, 53515-2, 67134-0 ####[facility] HOSPITALIA [id number] [place] [address] [place] Urea nitrogen [Mass/Vol] 31 mg/dL High 7-21 [facility] Comment on above: Order Comment: Speci men Type: BLOOD SPECIMENOrdering Facility: [facility] Address: [address] [place] [address] Performed By: #### 1 9123-9, 17109-4, 10622-5 ####[facility]ORATORYCLIA [id number] [place] [address] [place] Hepatic function 2000 panelo 01-04-2024 ALP [Catalytic activity/Vol] 182 U/L High 34-123 [facility] Comment on above: Order Comment: Speci men Type: BLOOD SPECIMENOrdering Facility: [facility] Address: [address] [place] [address] Performed By: #### 1 9123-9, 07285-3, 15922-1 ####[facility]ORATORYCLIA [id number] [facility] [address] [place] ALT [Catalytic activity/Vol] 213 U/L High 7-38 [facility] Comment on above: Order Comment: Speci men Type: BLOOD SPECIMENOrdering Facility: [facility] Address: [address] [place] [address] Performed By: #### 1 9123-9, 98186-2, 93197-0 ####[facility]ORATORYCLIA [id number] [place] [address] [place] AST [Catalytic activity/Vol] 83 U/L High 13-35 [facility] Comment on above: Order Comment: Speci men Type: BLOOD SPECIMENOrdering Facility: [facility] Address: [address] [place] [address] Performed By: #### 1 9123-9, 48797-0, 59085-9 ####[facility] LABORATORYCLIA [id number] [place] [address] [place] Bilirubin [Mass/Vol] 0.4 mg/dL Normal 0.2-1.3 [facility] Comment on above: Order Comment: Speci men Type: BLOOD SPECIMENOrdering Facility: [facility] Address: [address] [place] [address] Performed By: #### 1 9123-9, 76911-2, 83860-4 ####[facility] LABORATORYIA [id number] [place] [address] [place] Bilirubin.conjugated [Mass/Vol] mg/dL Normal <0.2 [facility] Comment on above: Order Comment: Speci men Type: BLOOD SPECIMENOrdering Facility: [facility] Address: [address] [place] [address] Performed By: #### 1 9123-9, 75030-2, 42314-0 ####[facility] LABORATORYIA [id number] [place] [address] [place] Protein [Mass/Vol] 6.6 g/dL Normal 6.3-8.0 [facility] Comment on above: Order Comment: Speci men Type: BLOOD SPECIMENOrdering Facility: [facility] Address: [facility] [place]Joel [place] [address] Performed By: #### 1 9123-9, 48528-5, 77127-9 ####[facility] LABORATORYCLIA [id number] [place] [address] [place] Magnesium SerPl-mCncon 01-03 Magnesium [Mass/Vol] 2.2 mg/dL Normal 1.7-2.3 [facility] Comment on above: Order Comment: Speci men Type: BLOOD SPECIMENOrdering Facility: [facility] Address: [address] [place], [place] [address] Galdino[place] [address] Performed By: #### 1 9123-9, 65331-7, 98549-1 ####[facility] LABORATORYCLIA [id number] [place] [address] [place] NUTRITIONon 01-04-2024 NUTRITION Normal [facility] Renal Func 2000 Pnl SerPlon 01-04-2024 Albumin [Mass/Vol] 3.7 g/dL Low 3.9-4.9 [facility] Comment on above: Order Comment: Speci men Type: BLOOD SPECIMENOrdering Facility: [facility] Address: [facility] [place]ACK [place] [address] Performed By: #### 1 9123-9, 33255-0, 43809-6 ####[facility] LABORATORYIA [id number] [place] [address] [place] Renal function 2000 panelon 01-04-2024 Anion gap [Moles/Vol] 11 mmol/L Normal 8-15 [facility] Comment on above: Order Comment: Speci men Type: BLOOD SPECIMENOrdering Facility: [facility] Address: [facility] TOYAJoel [place] [address] Performed By: #### 1 9123-9, 78035-3, 50277-9 ####[facility] LABORATORYIA [id number] [place] [address] [place] Calcium [Mass/Vol] 8.6 mg/dL Normal 8.5-10.2 [facility] Comment on above: Order Comment: Speci men Type: BLOOD SPECIMENOrdering Facility: [facility] Address: [address] [place] [address] Performed By: #### 1 9123-9, 68603-9, 52082-1 ####[facility] LABORATORYCLIA [id number] [place] [address] [place] Chloride [Moles/Vol] 102 mmol/L Normal 98-107 [facility] Comment on above: Order Comment: Speci men Type: BLOOD SPECIMENOrdering Facility: [facility] Address: [address] [place] [address] Performed By: #### 1 9123-9, 31547-6, 70918-7 ####[facility] LABORATORYCLIA [id number] [place] [address] [place] CO2 [Moles/Vol] 26 mmol/L Normal 22-30 [facility] Comment on above: Order Comment: Speci men Type: BLOOD SPECIMENOrdering Facility: [facility] Address: [address] [place] [address] Performed By: #### 1 9123-9, 30295-5, 92344-9 ####[facility] LABORATORYCLIA [id number] [place] [address] [place] Creatinine [Mass/Vol] 0.65 mg/dL Normal 0.58-0.96 [facility] Comment on above: Order Comment: Speci men Type: BLOOD SPECIMENOrdering Facility: [facility] Address: [address] [place] [address] Performed By: #### 1 9123-9, 63245-0, 69235-6 ####[facility] LABORATORYCLIA [id number] [place] [address] [place] Creatinine and Glomerular filtration rate.predicted panel (S/P/Bld) 100 mL/min/1.73m??? Normal >=60 [facility] Comment on above: Order Comment: Speci men Type: BLOOD SPECIMENOrdering Facility: [facility] Address: [address] [place] [address] Result Comment: Tuyet mated Glomerular Filtration Rate (eGFR) is calculated using the 2020 CKD-EPI creatinine equation. This equation utilizes serum creatinine, sex, and age as parameters. The creatinine assay has traceable calibration to isotope dilution-mass spectrometry. Refer to KDIGO guidelines for clinical interpretation. In patients with unstable renal function, e.g. those with acute kidney injury, the eGFR may not accurately reflect actual GFR. Performed By: #### 1 9123-9, 92230-7, 87505-3 ####[facility] LABORATORYCLIA [id number] [place] [address] [place] Glucose [Mass/Vol] 80 mg/dL Normal 74-99 [facility] Comment on above: Order Comment: Nicolle phipps Type: BLOOD SPECIMENOrdering Facility: [facility] Address: [address] [place] [address] Result Comment: The [place] Diabetes Association (ADA) provides guidance for cutoff values for fasting glucose and random glucose. The ADA defines fasting as no caloric intake for at least 8 hours. Fasting plasma glucose results between 100 to 125 mg/dL indicate increased risk for diabetes (prediabetes).Fasting plasma glucose results greater than or equal to 126 mg/dL meet the criteria for diagnosis of diabetes. In the absence of unequivocal hyperglycemia, results should be confirmed by repeat testing. In a patient with classic symptoms of hyperglycemia or hyperglycemic crisis, random plasma glucose results greater than or equal to 200 mg/dL meet the criteria for diagnosis of diabetes.Reference: Standards of Medical Care in Diabetes 2016, [place] Diabetes Association. Diabetes Care. 2016.39(Suppl 1). Performed By: #### 1 9123-9, 28685-0, 83548-0 ####[facility] LABORATORYCLIA [id number] [place] [address] [place] Phosphate [Mass/Vol] 2.1 mg/dL Low 2.7-4.8 [facility] Comment on above: Order Comment: Nicolle phipps Type: BLOOD SPECIMENOrdering Facility: [facility] Address: [address] [place] [address] Performed By: #### 1 9123-9, 07267-6, 49733-0 ####[facility] LABORATORYCLIA [id number] [place] [address] [place] Potassium [Moles/Vol] 4.1 mmol/L Normal 3.7-5.1 [facility] Comment on above: Order Comment: Speci men Type: BLOOD SPECIMENOrdering Facility: [facility] Address: [address] [place] [address] Performed By: #### 1 9123-9, 57674-7, 40245-1 ####[facility] LABORATORYCLIA [id number] [place] [address] [place] Sodium [Moles/Vol] 139 mmol/L Normal 136-144 [facility] Comment on above: Order Comment: Speci men Type: BLOOD SPECIMENOrdering Facility: [facility] Address: [address] [place] [address] Performed By: #### 1 9123-9, 70892-6, 24649-8 ####[facility] HOSPITALIA [id number] [place] [address] [place] Urea nitrogen [Mass/Vol] 34 mg/dL High 7-21 [facility] Comment on above: Order Comment: Speci men Type: BLOOD SPECIMENOrdering Facility: [facility] Address: [address] [place] [address] Performed By: #### 1 9123-9, 37673-1, 39686-2 ####[facility] LABORATORYIA [id number] [place] [address] [place] THERAPY NTon 01-04-2024 THERAPY NT Normal [facility] CASE MANAGEMon 01-03-2024 CASE MANAGEM Normal [facility] Magnesium SerPl-mCncon 01-02 Magnesium [Mass/Vol] 2.1 mg/dL Normal 1.7-2.3 [facility] Comment on above: Order Comment: Speci men Type: BLOOD SPECIMENOrdering Facility: [facility] Address: [address] [place] [address] Performed By: #### 1 9123-9, 85040-3 ####[facility] LABORATORYIA [id number] [place] [address] [place] Renal function 2000 panelon 01-03-2024 Albumin [Mass/Vol] 3.5 g/dL Low 3.9-4.9 [facility] Comment on above: Order Comment: Speci men Type: BLOOD SPECIMENOrdering Facility: [facility] Address: [address] [place] [address] Performed By: #### 1 9123-9, 61158-1 ####[facility] LABORATORYCLIA [id number] [place] [address] [place] Anion gap [Moles/Vol] 11 mmol/L Normal 8-15 [facility] Comment on above: Order Comment: Speci men Type: BLOOD SPECIMENOrdering Facility: [facility] Address: [address] [place] [address] Performed By: #### 1 9123-9, 84379-6 ####[facility] LABORATORYIA [id number] [place] [address] [place] Calcium [Mass/Vol] 8.7 mg/dL Normal 8.5-10.2 [facility] Comment on above: Order Comment: Speci men Type: BLOOD SPECIMENOrdering Facility: [facility] Address: [address] [place] [address] Performed By: #### 1 9123-9, 37785-8 ####[facility] LABORATORYIA [id number] [place] [address] [place] Chloride [Moles/Vol] 104 mmol/L Normal 98-107 [facility] Comment on above: Order Comment: Speci men Type: BLOOD SPECIMENOrdering Facility: [facility] Address: [address] [place] [address] Performed By: #### 1 9123-9, 94294-4 ####[facility] LABORATORYIA [id number] [place] [address] [place] CO2 [Moles/Vol] 24 mmol/L Normal 22-30 [facility] Comment on above: Order Comment: Speci men Type: BLOOD SPECIMENOrdering Facility: [facility] Address: [address] [place] [address] Performed By: #### 1 9123-9, 47336-4 ####[facility] LABORATORYCLIA [id number] [place] [address] [place] Creatinine [Mass/Vol] 0.69 mg/dL Normal 0.58-0.96 [facility] Comment on above: Order Comment: Nicolle men Type: BLOOD SPECIMENOrdering Facility: [facility] Address: [address] [place] [address] Performed By: #### 1 9123-9, 18991-8 ####[facility] LABORATORYCLIA [id number] [place] [id number] [place] Creatinine and Glomerular filtration rate.predicted panel (S/P/Bld) 99 mL/min/1.73m??? Normal >=60 [facility] Comment on above: Order Comment: Nicolle phipps Type: BLOOD SPECIMENOrdering Facility: [facility] Address: [address] [place] [address] Result Comment: Tuyet mated Glomerular Filtration Rate (eGFR) is calculated using the 2020 CKD-EPI creatinine equation. This equation utilizes serum creatinine, sex, and age as parameters. The creatinine assay has traceable calibration to isotope dilution-mass spectrometry. Refer to KDIGO guidelines for clinical interpretation. In patients with unstable renal function, e.g. those with acute kidney injury, the eGFR may not accurately reflect actual GFR. Performed By: #### 1 9123-9, 73873-7 ####[facility] LABORATORYCLIA [id number] [place] [address] [place] Glucose [Mass/Vol] 124 mg/dL High 74-99 [facility] Comment on above: Order Comment: Nicolle phipps Type: BLOOD SPECIMENOrdering Facility: [facility] Address: [address] [place] [address] Result Comment: The Citizen [place] Diabetes Association (ADA) provides guidance for cutoff values for fasting glucose and random glucose. The ADA defines fasting as no caloric intake for at least 8 hours. Fasting plasma glucose results between 100 to 125 mg/dL indicate increased risk for diabetes (prediabetes).Fasting plasma glucose results greater than or equal to 126 mg/dL meet the criteria for diagnosis of diabetes. In the absence of unequivocal hyperglycemia, results should be confirmed by repeat testing. In a patient with classic symptoms of hyperglycemia or hyperglycemic crisis, random plasma glucose results greater than or equal to 200 mg/dL meet the criteria for diagnosis of diabetes.Reference: Standards of Medical Care in Diabetes 2016, [place] Diabetes Association. Diabetes Care. 2016.39(Suppl 1). Performed By: #### 1 9123-9, 02124-7 ####[facility] HOSPITALIA [id number] [place] [address] [place] Phosphate [Mass/Vol] 1.9 mg/dL Low 2.7-4.8 [facility] Comment on above: Order Comment: Speci men Type: BLOOD SPECIMENOrdering Facility: [facility] Address: [address] [place] [address] Performed By: #### 1 9123-9, 16902-3 ####[facility] HOSPITALIA [id number] [place] [address] [place] Potassium [Moles/Vol] 3.7 mmol/L Normal 3.7-5.1 [facility] Comment on above: Order Comment: Heribertoi men Type: BLOOD SPECIMENOrdering Facility: [facility] Address: [address] [place] [address] Performed By: #### 1 9123-9, 89945-7 ####[facility] HOSPITALIA [id number] [place] [address] [place] Sodium [Moles/Vol] 139 mmol/L Normal 136-144 [facility] Comment on above: Order Comment: Speci men Type: BLOOD SPECIMENOrdering Facility: [facility] Address: [address] [place] [address] Performed By: #### 1 9123-9, 68148-9 ####[facility] LABORATORYIA [id number] [place] [address] [place] Urea nitrogen [Mass/Vol] 30 mg/dL High 7-21 [facility] Comment on above: Order Comment: Speci men Type: BLOOD SPECIMENOrdering Facility: [facility] Address: [address] [place], [place] [address] [address] Performed By: #### 1 9123-9, 20988-0 ####[facility] LABORATORYCLIA [id number] [place] [address] [facility] CASE MANAGEMon 01-02-2024 CASE MANAGEM [facility] CONSULT PROGon 01-02-2024 CONSULT PROG [facility] Magnesium SerPl-mCncon 01-01 Magnesium [Mass/Vol] 2.2 mg/dL Normal 1.7-2.3 [facility] Comment on above: Order Comment: Speci men Type: BLOOD SPECIMENOrdering Facility: [facility] Address: [address] [place], [place] [address] [address] Performed By: #### 1 9123-9, 38137-3, 2578 ####[facility] LABORATORYCLIA [id number] [place] [address] [facility] [place] Patient Letteron 01-02-2024 Patient Letter [id number] panelon 01-02-2024 Albumin [Mass/Vol] 3.5 g/dL Low 3.9-4.9 [facility] Comment on above: Order Comment: Speci men Type: BLOOD SPECIMENOrdering Facility: [facility] Address: [facility] [place]Joel [place] [address] Performed By: #### 1 9123-9, 38368-0, 257-8 ####[facility] LABORATORYCLIA [id number] [place] [address] [place] Anion gap [Moles/Vol] 10 mmol/L Normal 8-15 [facility] Comment on above: Order Comment: Speci men Type: BLOOD SPECIMENOrdering Facility: [facility] Address: [address] [place], [place] [address] Performed By: #### 1 9123-9, 35435-6, 257-8 ####[facility] LABORATORYCLIA [id number] [place] [address] [place] Calcium [Mass/Vol] 8.7 mg/dL Normal 8.5-10.2 [facility] Comment on above: Order Comment: Speci men Type: BLOOD SPECIMENOrdering Facility: [facility] Address: [address] [place] [address] Performed By: #### 1 9123-9, 92692-4, 8 ####[facility] LABORATORYCLIA [id number] [place] [address] [place] Chloride [Moles/Vol] 104 mmol/L Normal 98-107 [facility] Comment on above: Order Comment: Speci men Type: BLOOD SPECIMENOrdering Facility: [facility] Address: [address] [place] [address] Performed By: #### 1 9123-9, 83068-8, 2570-12 ####[facility] HOSPITALIA [id number] [place] [address] [place] CO2 [Moles/Vol] 26 mmol/L Normal 22-30 [facility] Comment on above: Order Comment: Speci men Type: BLOOD SPECIMENOrdering Facility: [facility] Address: [address] [place] [address] Performed By: #### 1 9123-9, 78587-8, 8 ####[facility] LABORATORYIA [id number] [place] [address] [place] Creatinine [Mass/Vol] 0.72 mg/dL Normal 0.58-0.96 [facility] Comment on above: Order Comment: Speci men Type: BLOOD SPECIMENOrdering Facility: [facility] Address: [address] [place] [address] Performed By: #### 1 9123-9, 74833-6, 2578 ####[facility] LABORATORYCLIA [id number] [place] [address] [place] Creatinine and Glomerular filtration rate.predicted panel (S/P/Bld) 95 mL/min/1.73m??? Normal >=60 [facility] Comment on above: Order Comment: Nicolle phipps Type: BLOOD SPECIMENOrdering Facility: [facility] Address: [address] [place] [address] Result Comment: Tuyet mated Glomerular Filtration Rate (eGFR) is calculated using the 2020 CKD-EPI creatinine equation. This equation utilizes serum creatinine, sex, and age as parameters. The creatinine assay has traceable calibration to isotope dilution-mass spectrometry. Refer to KDIGO guidelines for clinical interpretation. In patients with unstable renal function, e.g. those with acute kidney injury, the eGFR may not accurately reflect actual GFR. Performed By: #### 1 9123-9, 51437-3, 2571-8 ####[facility] LABORATORYCLIA [id number] [place] [address] [place] Glucose [Mass/Vol] 83 mg/dL Normal 74-99 [facility] Comment on above: Order Comment: Nicolle phipps Type: BLOOD SPECIMENOrdering Facility: [facility] Address: [address] [place] [address] Result Comment: The Citizen [place] Diabetes Association (ADA) provides guidance for cutoff values for fasting glucose and random glucose. The ADA defines fasting as no caloric intake for at least 8 hours. Fasting plasma glucose results between 100 to 125 mg/dL indicate increased risk for diabetes (prediabetes).Fasting plasma glucose results greater than or equal to 126 mg/dL meet the criteria for diagnosis of diabetes. In the absence of unequivocal hyperglycemia, results should be confirmed by repeat testing. In a patient with classic symptoms of hyperglycemia or hyperglycemic crisis, random plasma glucose results greater than or equal to 200 mg/dL meet the criteria for diagnosis of diabetes.Reference: Standards of Medical Care in Diabetes 2016, Citizen Of [place] Diabetes Association. Diabetes Care. 2016.39(Suppl 1). Performed By: #### 1 9123-9, 43227-2, 2571-8 ####[facility] LABORATORYCLIA [id number] [place] [address] [place] Phosphate [Mass/Vol] 1.9 mg/dL Low 2.7-4.8 [facility] Comment on above: Order Comment: [facility] Type: BLOOD SPECIMENOrdering Facility: [facility] Address: [address] [place] [address] Performed By: #### 1 9123-9, 39522-7, 2571-8 ####[facility] LABORATORYCLIA [id number] [place] [address] [place] Potassium [Moles/Vol] 4.1 mmol/L Normal 3.7-5.1 [facility] Comment on above: Order Comment: Speci men Type: BLOOD SPECIMENOrdering Facility: [facility] Address: [address] [place] [address] Performed By: #### 1 9123-9, 18550-5, 257-8 ####[facility] LABORATORYCLIA [id number] [place] [address] [place] Sodium [Moles/Vol] 140 mmol/L Normal 136-144 [facility] Comment on above: Order Comment: Speci men Type: BLOOD SPECIMENOrdering Facility: [facility] Address: [address] [place] [address] Performed By: #### 1 9123-9, 76318-7, 2578 ####[facility] LABORATORYCLIA [id number] [place] [address] [place] Urea nitrogen [Mass/Vol] 27 mg/dL High 7-21 [facility] Comment on above: Order Comment: Speci men Type: BLOOD SPECIMENOrdering Facility: [facility] Address: [address] [place] [address] Performed By: #### 1 9123-9, 87064-4, 2578 ####[facility] LABORATORYCLIA [id number] [place] [address] [place] Trigl SerPl-mCncon 4 Triglyceride [Mass/Vol] 146 mg/dL Normal <150 [facility] Comment on above: Order Comment: Speci men Type: BLOOD SPECIMENOrdering Facility: [facility] Address: [address] [place] [address] Result Comment: <150 mg/dL, Normal 150-199 mg/dL, Borderline high 200-499 mg/dL, High>499 mg/dL, Very highReference:1. National Cholesterol Education Program ATP III Guideline At-A-Glance Quick Desk Reference: National Heart, Lung, and Blood [place]. National Institutes of Health. 2001: NIH Publication No. 01-3305. Performed By: #### 1 9123-9, 83009-8, 2571-8 ####[facility] LABORATORYCLIA [id number] [facility] [place] [address] [facility] Triglyceride [Mass/Vol]on FASTING TIME 0 hrs Normal [facility] Comment on above: Order Comment: Speci men Type: BLOOD SPECIMENOrdering Facility: [facility] Address: [address] [place] [address] Performed By: #### 1 9123-9, 01575-0, 257-8 ####[facility] LABORATORYCLIA [id number] [facility] [id number] [facility] Bilirub Conj SerPl-mCncon Bilirubin.conjugated [Mass/Vol] mg/dL Normal <0.2 [facility] Comment on above: Order Comment: Speci men Type: BLOOD SPECIMENOrdering Facility: [facility] Address: [address] [place] [address] Performed By: #### 1 5152-2, 32398-3, 1987-, ####[facility] LABORATORYCLIA [id number] [place] [address] [facility] CASE MANAGEMon 01-01-2024 CASE MANAGEM Normal [facility] CBC panel Auto (Bld)on 12-31 Erythrocyte distribution width (RBC) [Ratio] 16.1 % High 11.5-15.0 [facility] Comment on above: Order Comment: Speci men Type: BLOOD SPECIMENOrdering Facility: [facility] Address: [address] [place] [address] Performed By: #### 5 8410-2 ####[facility] LABORATORYCLIA [id number] [place] Hematocrit (Bld) [Volume fraction] 34.7 % Low 36.0-46.0 [facility] Comment on above: Order Comment: Speci men Type: BLOOD SPECIMENOrdering Facility: [facility] Address: [address] [place] [address] Performed By: #### 5 8410-2 ####[facility] LABORATORYCLIA [id number] [place] [address] [place] Hemoglobin (Bld) [Mass/Vol] 11.1 g/dL Low 11.5-15.5 [facility] Comment on above: Order Comment: Speci men Type: BLOOD SPECIMENOrdering Facility: [facility] Address: [address] [place] [address] Performed By: #### 5 8410-2 ####[facility] LABORATORYCLIA [id number] [address] [place] MCH (RBC) [Entitic mass] 27.2 pg Normal 26.0-34.0 [facility] Comment on above: Order Comment: Speci men Type: BLOOD SPECIMENOrdering Facility: [facility] Address: [address] [place] [address] Performed By: #### 5 8410-2 ####[facility] LABORATORYCLIA [id number] [place] [address] [place] MCHC (RBC) [Mass/Vol] 32.0 g/dL Normal 30.5-36.0 [facility] Comment on above: Order Comment: Speci men Type: BLOOD SPECIMENOrdering Facility: [facility] Address: [address] [place] [address] Performed By: #### 5 8410-2 ####[facility] LABORATORYCLIA [id number] [address] [place] MCV (RBC) [Entitic vol] 85.0 fL Normal 80.0-100.0 [facility] Comment on above: Order Comment: Speci men Type: BLOOD SPECIMENOrdering Facility: [facility] Address: [address] [place] [address] Performed By: #### 5 8410-2 ####[facility] LABORATORYIA [id number] [place] [address] [place] Nucleated RBC (Bld) [#/Vol] 10*3/uL Normal <0.01 [facility] Comment on above: Order Comment: Speci men Type: BLOOD SPECIMENOrdering Facility: [facility] Address: [address] [place] [address] Performed By: #### 5 8410-2 ####[facility] HOSPITALIA [id number] [place] [address] [place] Platelet mean volume (Bld) [Entitic vol] 9.2 fL Normal 9.0-12.7 [facility] Comment on above: Order Comment: Speci men Type: BLOOD SPECIMENOrdering Facility: [facility] Address: [address] [place] [address] Performed By: #### 5 8410-2 ####[facility] HOSPITALIA [id number] [place] [address] [place] Platelets (Bld) [#/Vol] 286 10*3/uL Normal 150-400 [facility] Comment on above: Order Comment: Speci men Type: BLOOD SPECIMENOrdering Facility: [facility] Address: [address] [place] [address] Performed By: #### 5 8410-2 ####[facility] LABORATORYIA [id number] [facility] [place] [address] [place] RBC (Bld) [#/Vol] 4.08 10*6/uL Normal 3.90-5.20 [facility] Comment on above: Order Comment: Speci men Type: BLOOD SPECIMENOrdering Facility: [facility] Address: [address] [place] [address] Performed By: #### 5 8410-2 ####[facility] LABORATORYIA [id number] [facility] [place] [address] [place] WBC (Bld) [#/Vol] 11.52 10*3/uL High 3.70-11.00 [facility] Comment on above: Order Comment: Speci men Type: BLOOD SPECIMENOrdering Facility: [facility] Address: [address] [place] [address] Performed By: #### 5 8410-2 ####[facility] LABORATORYCLIA [id number] [place] [address] [facility] CONSULTon 01-01-2024 CONSULT Normal [facility] CRP SerPl-mCncon 01-01-2024 CRP [Mass/Vol] 2.1 mg/dL High <0.9 [facility] Comment on above: Order Comment: Speci men Type: BLOOD SPECIMENOrdering Facility: [facility] Address: [address] [place] [address] Performed By: #### 1 5152-2, , ####[facility]ORATORYCLIA [id number] [place] [address] [facility] Comprehensive metabolic 2000 panelon 01-01-2024 Albumin [Mass/Vol] 3.6 g/dL Low 3.9-4.9 [facility] Comment on above: Order Comment: Speci men Type: BLOOD SPECIMENOrdering Facility: [facility] Address: [address] [place] [address] Performed By: #### 1 5152-2, , ####[facility]ORATORYCLIA [id number] [place] [address] [place] ALP [Catalytic activity/Vol] 198 U/L High 34-123 [facility] Comment on above: Order Comment: Speci men Type: BLOOD SPECIMENOrdering Facility: [facility] Address: [address] [place] [address] Performed By: #### 1 5152-2, , 1987-09, ####[facility]ORATORYCLIA [id number] [place] [address] [place] ALT [Catalytic activity/Vol] 204 U/L High 7-38 [facility] Comment on above: Order Comment: Speci men Type: BLOOD SPECIMENOrdering Facility: [facility] Address: [address] [place] [address] Performed By: #### 1 5152-2, , ####[facility]ORATORYCLIA [id number] [place] [address] [place] Anion gap [Moles/Vol] 10 mmol/L Normal 8-15 [facility] Comment on above: Order Comment: Speci men Type: BLOOD SPECIMENOrdering Facility: [facility] Address: [address] [place] [address] Performed By: #### 1 5152-2, , ####[facility]ORATORYCLIA [id number] [place] [address] [place] AST [Catalytic activity/Vol] 63 U/L High 13-35 [facility] Comment on above: Order Comment: Speci men Type: BLOOD SPECIMENOrdering Facility: [facility] Address: [address] [place] [address] Performed By: #### 1 5152-2, , ####[facility]ORATORYCLIA [id number] [place] [address] [place] Bilirubin [Mass/Vol] 0.5 mg/dL Normal 0.2-1.3 [facility] Comment on above: Order Comment: Speci men Type: BLOOD SPECIMENOrdering Facility: [facility] Address: [address] [place] [address] Performed By: #### 1 5152-2, , ####[facility] LABORATORYCLIA [id number] [place] [address] [place] Calcium [Mass/Vol] 8.4 mg/dL Low 8.5-10.2 [facility] Comment on above: Order Comment: Speci men Type: BLOOD SPECIMENOrdering Facility: [facility] Address: [address] [place] [address] Performed By: #### 1 5152-2, , ####[facility] HOSPITALIA [id number] [place] [address] [place] Chloride [Moles/Vol] 103 mmol/L Normal 98-107 [facility] Comment on above: Order Comment: Speci men Type: BLOOD SPECIMENOrdering Facility: [facility] Address: [address] [place] [address] Performed By: #### 1 5152-2, , ####[facility] HOSPITALIA [id number] [place] [address] [place] CO2 [Moles/Vol] 29 mmol/L Normal 22-30 [facility] Comment on above: Order Comment: Speci men Type: BLOOD SPECIMENOrdering Facility: [facility] Address: [address] [place] [address] Performed By: #### 1 5152-2, , ####[facility] HOSPITALIA [id number] [place] [address] [place] Creatinine [Mass/Vol] 0.65 mg/dL Normal 0.58-0.96 [facility] Comment on above: Order Comment: Speci men Type: BLOOD SPECIMENOrdering Facility: [facility] Address: [address] [place] [address] Performed By: #### 1 5152-2, , ####[facility] HOSPITALIA [id number] [place] [address] [place] Creatinine and Glomerular filtration rate.predicted panel (S/P/Bld) 100 mL/min/1.73m??? Normal >=60 [facility] Comment on above: Order Comment: Speci men Type: BLOOD SPECIMENOrdering Facility: [facility] Address: [address] [place] [address] Result Comment: Tuyet mated Glomerular Filtration Rate (eGFR) is calculated using the 2020 CKD-EPI creatinine equation. This equation utilizes serum creatinine, sex, and age as parameters. The creatinine assay has traceable calibration to isotope dilution-mass spectrometry. Refer to KDIGO guidelines for clinical interpretation. In patients with unstable renal function, e.g. those with acute kidney injury, the eGFR may not accurately reflect actual GFR. Performed By: #### 1 5152-2, 39179-7, ####[facility] LABORATORYCLIA [id number] [place] [address] [place] Glucose [Mass/Vol] 88 mg/dL Normal 74-99 [facility] Comment on above: Order Comment: Nicolle phipps Type: BLOOD SPECIMENOrdering Facility: [facility] Address: [address] [place] [address] Result Comment: The [place] Diabetes Association (ADA) provides guidance for cutoff values for fasting glucose and random glucose. The ADA defines fasting as no caloric intake for at least 8 hours. Fasting plasma glucose results between 100 to 125 mg/dL indicate increased risk for diabetes (prediabetes).Fasting plasma glucose results greater than or equal to 126 mg/dL meet the criteria for diagnosis of diabetes. In the absence of unequivocal hyperglycemia, results should be confirmed by repeat testing. In a patient with classic symptoms of hyperglycemia or hyperglycemic crisis, random plasma glucose results greater than or equal to 200 mg/dL meet the criteria for diagnosis of diabetes.Reference: Standards of Medical Care in Diabetes 2016, [place] Diabetes Association. Diabetes Care. 2016.39(Suppl 1). Performed By: #### 1 5152-2, , ####[facility] LABORATORYCLIA [id number] [place] [address] [place] Potassium [Moles/Vol] 3.5 mmol/L Low 3.7-5.1 [facility] Comment on above: Order Comment: Nicolle phipps Type: BLOOD SPECIMENOrdering Facility: [facility] Address: [address] [address] Performed By: #### 1 5152-2, , ####[facility] HOSPITALIA [id number] [place] [address] [place] Protein [Mass/Vol] 6.2 g/dL Low 6.3-8.0 [facility] Comment on above: Order Comment: Speci men Type: BLOOD SPECIMENOrdering Facility: [facility] Address: [address] [place] [address] Performed By: #### 1 5152-2, , ####[facility] HOSPITALIA [id number] [place] [address] [place] Sodium [Moles/Vol] 142 mmol/L Normal 136-144 [facility] Comment on above: Order Comment: Speci men Type: BLOOD SPECIMENOrdering Facility: [facility] Address: [address] [place] [address] Performed By: #### 1 5152-2, , ####[facility] [id number] [place] [address] [place] Urea nitrogen [Mass/Vol] 21 mg/dL Normal 7-21 [facility] Comment on above: Order Comment: Speci men Type: BLOOD SPECIMENOrdering Facility: [facility] Address: [address] [place] [address] Performed By: #### 1 5152-2, , ####[facility] HOSPITALIA [id number] [place] [address] [place] ECG COMPLETEon 01-01-2024 ECG COMPLETE Normal [facility] Magnesium SerPl-mCncon 12-31 Magnesium [Mass/Vol] 2.1 mg/dL Normal 1.7-2.3 [facility] Comment on above: Order Comment: Speci men Type: BLOOD SPECIMENOrdering Facility: [facility] Address: [address] [place] [address] Performed By: #### 1 5152-2, , ####[facility]ORATORYIA [id number] [place] [address] [place] Phosphate SerPl-mCncon 12-31 Phosphate [Mass/Vol] 1.7 mg/dL Low 2.7-4.8 [facility] Comment on above: Order Comment: Speci men Type: BLOOD SPECIMENOrdering Facility: [facility] Address: [address] [place] [address] Performed By: #### 2 777-1 ####[facility] LABORATORYIA [id number] [place] [address] [place] THERAPY NTon 01-01-2024 THERAPY NT Normal [facility] US ABD RIGHT UPPER QUADRANTo n 01-01-2024 US ABD RIGHT UPPER QUADRANT Normal [facility] US ABD SPLEEN -NBon 01-01-20 US ABD SPLEEN -NB Normal [facility] Comprehensive metabolic 2000 panelon 12-31-2023 Albumin [Mass/Vol] 3.5 g/dL Low 3.9-4.9 [facility] Comment on above: Order Comment: Speci men Type: BLOOD SPECIMENOrdering Facility: [facility] Address: [address] [place] [address] Performed By: #### 2 4323-8, , 2776-05 ####[facility] HOSPITALIA [id number] [place] [address] [place] ALP [Catalytic activity/Vol] 208 U/L High 34-123 [facility] Comment on above: Order Comment: Speci men Type: BLOOD SPECIMENOrdering Facility: [facility] Address: [address] [place] [address] Performed By: #### 2 4323-8, 85688-8, 2776-05 ####[facility] LABORATORYIA [id number] [place] [address] [place] ALT [Catalytic activity/Vol] 230 U/L High 7-38 [facility] Comment on above: Order Comment: Speci men Type: BLOOD SPECIMENOrdering Facility: [facility] Address: [address] [place] [address] Performed By: #### 2 4323-8, , 2776-05 ####[facility]ORATORYCLIA [id number] [place] [address] [place] Anion gap [Moles/Vol] 8 mmol/L Normal 8-15 [facility] Comment on above: Order Comment: Speci men Type: BLOOD SPECIMENOrdering Facility: [facility] Address: [address] [place] [address] Performed By: #### 2 4323-8, , 2776-05 ####[facility]ORATORYCLIA [id number] [place] [address] [place] AST [Catalytic activity/Vol] 132 U/L High 13-35 [facility] Comment on above: Order Comment: Speci men Type: BLOOD SPECIMENOrdering Facility: [facility] Address: [address] [place] [address] Performed By: #### 2 4323-8, , 2776-05 ####[facility]PITALCLIA [id number] [place] [address] [place] Bilirubin [Mass/Vol] 0.5 mg/dL Normal 0.2-1.3 [facility] Comment on above: Order Comment: Speci men Type: BLOOD SPECIMENOrdering Facility: [facility] Address: [address] [place] [address] Performed By: #### 2 4323-8, , 2776-05 ####[facility]ORATORYCLIA [id number] [place] [address] [place] Calcium [Mass/Vol] 8.5 mg/dL Normal 8.5-10.2 [facility] Comment on above: Order Comment: Speci men Type: BLOOD SPECIMENOrdering Facility: [facility] Address: [address] [place] [address] Performed By: #### 2 4323-8, , 2776-05 ####[facility]ORATORYCLIA [id number] [place] [address] [place] Chloride [Moles/Vol] 100 mmol/L Normal 98-107 [facility] Comment on above: Order Comment: Speci men Type: BLOOD SPECIMENOrdering Facility: [facility] Address: [address] [place], [place] [address] Performed By: #### 2 4323-8, 22760-0, 2776-05 ####[facility]ORATORYCLIA [id number] [place] [address] [place] CO2 [Moles/Vol] 31 mmol/L High 22-30 [facility] Comment on above: Order Comment: Speci men Type: BLOOD SPECIMENOrdering Facility: [facility] Address: [address] [place] [address] Performed By: #### 2 4323-8, , 2776-05 ####[facility]ORATORYCLIA [id number] [place] [address] [place] Creatinine [Mass/Vol] 0.73 mg/dL Normal 0.58-0.96 [facility] Comment on above: Order Comment: Speci men Type: BLOOD SPECIMENOrdering Facility: [facility] Address: [address] [place] [address] Performed By: #### 2 4323-8, , 2776-05 ####[facility]ORATORYCLIA [id number] [place] [address] [place] Creatinine and Glomerular filtration rate.predicted panel (S/P/Bld) 94 mL/min/1.73m??? Normal >=60 [facility] Comment on above: Order Comment: Speci men Type: BLOOD SPECIMENOrdering Facility: [facility] Address: [address] [place] [address] Result Comment: Tuyet mated Glomerular Filtration Rate (eGFR) is calculated using the 2020 CKD-EPI creatinine equation. This equation utilizes serum creatinine, sex, and age as parameters. The creatinine assay has traceable calibration to isotope dilution-mass spectrometry. Refer to KDIGO guidelines for clinical interpretation. In patients with unstable renal function, e.g. those with acute kidney injury, the eGFR may not accurately reflect actual GFR. Performed By: #### 2 4323-8, , 2776-05 ####[facility] LABORATORYCLIA [id number] [place] [address] [place] Glucose [Mass/Vol] 86 mg/dL Normal 74-99 [facility] Comment on above: Order Comment: Nicolle phipps Type: BLOOD SPECIMENOrdering Facility: [facility] Address: [address] [place] [address] Result Comment: The [place] Diabetes Association (ADA) provides guidance for cutoff values for fasting glucose and random glucose. The ADA defines fasting as no caloric intake for at least 8 hours. Fasting plasma glucose results between 100 to 125 mg/dL indicate increased risk for diabetes (prediabetes).Fasting plasma glucose results greater than or equal to 126 mg/dL meet the criteria for diagnosis of diabetes. In the absence of unequivocal hyperglycemia, results should be confirmed by repeat testing. In a patient with classic symptoms of hyperglycemia or hyperglycemic crisis, random plasma glucose results greater than or equal to 200 mg/dL meet the criteria for diagnosis of diabetes.Reference: Standards of Medical Care in Diabetes 2016, [place] Diabetes Association. Diabetes Care. 2016.39(Suppl 1). Performed By: #### 2 4323-8, , 2776-05 ####[facility]ORATORYCLIA [id number] [place] [address] [place] Potassium [Moles/Vol] 3.6 mmol/L Low 3.7-5.1 [facility] Comment on above: Order Comment: Nicolle phipps Type: BLOOD SPECIMENOrdering Facility: [facility] Address: [address] [place] [address] Performed By: #### 2 4323-8, , 2776-05 ####[facility]ORATORYCLIA [id number] [place] [address] [place] Protein [Mass/Vol] 5.9 g/dL Low 6.3-8.0 [facility] Comment on above: Order Comment: Nicolle phipps Type: BLOOD SPECIMENOrdering Facility: [facility] Address: [address] [place] [address] Performed By: #### 2 4323-8, 96476-0, 27711-26 ####[facility]ORATORYCLIA [id number] [place] [address] [place] Sodium [Moles/Vol] 139 mmol/L Normal 136-144 [facility] Comment on above: Order Comment: Speci men Type: BLOOD SPECIMENOrdering Facility: [facility] Address: [address] [place] [address] Performed By: #### 2 4323-8, , 2776-05 ####[facility]ORATORYCLIA [id number] [place] [address] [place] Urea nitrogen [Mass/Vol] 22 mg/dL High 7- [facility] Comment on above: Order Comment: Speci men Type: BLOOD SPECIMENOrdering Facility: [facility] Address: [address] [place] [address] Performed By: #### 2 4323-8, , 2776-05 ####[facility]ORATORYIA [id number] [place] [address] [place] ECG COMPLETEon 12-31-2023 ECG COMPLETE Normal [facility] Magnesium SerPl-mCncon 12-30 Magnesium [Mass/Vol] 2.2 mg/dL Normal 1.7-2.3 [facility] Comment on above: Order Comment: Speci men Type: BLOOD SPECIMENOrdering Facility: [facility] Address: [address] [place] [address] Performed By: #### 2 4323-8, , 2776-05 ####[facility]ORATORYCLIA [id number] [place] [address] [place] NURSING PROGon 12-31-2023 NURSING PROG Normal [facility] Phosphate SerPl-mCncon 12-30 Phosphate [Mass/Vol] 1.7 mg/dL Low 2.7-4.8 [facility] Comment on above: Order Comment: Speci men Type: BLOOD SPECIMENOrdering Facility: [facility] Address: [address] [place] [address] Performed By: #### 2 4323-8, 58723-7, 2777-1 ####[facility] LABORATORYCLIA [id number] [place] [id number] [place] CBC panel Auto (Bld)on 12-29 Erythrocyte distribution width (RBC) [Ratio] 16.0 % High 11.5-15.0 [facility] Comment on above: Order Comment: Speci men Type: BLOOD SPECIMENOrdering Facility: [facility] Address: [address] [place] [address] Performed By: #### 5 8410-2 ####[facility] HOSPITALIA [id number] [address] [place] Hematocrit (Bld) [Volume fraction] 35.7 % Low 36.0-46.0 [facility] Comment on above: Order Comment: Speci men Type: BLOOD SPECIMENOrdering Facility: [facility] Address: [address] [place] [address] Performed By: #### 5 8410-2 ####[facility] HOSPITALIA [id number] [place] [id number] [place] Hemoglobin (Bld) [Mass/Vol] 11.5 g/dL Normal 11.5-15.5 [facility] Comment on above: Order Comment: Speci men Type: BLOOD SPECIMENOrdering Facility: [facility] Address: [address] [place] [address] Performed By: #### 5 8410-2 ####[facility] LABORATORYIA [id number] [place] [address] [place] MCH (RBC) [Entitic mass] 26.7 pg Normal 26.0-34.0 [facility] Comment on above: Order Comment: Speci men Type: BLOOD SPECIMENOrdering Facility: [facility] Address: [address] [place] [address] Performed By: #### 5 8410-2 ####[facility]ORATORYN[facility] [id number] [place] [address] [place] MCHC (RBC) [Mass/Vol] 32.2 g/dL Normal 30.5-36.0 [facility] Comment on above: Order Comment: Speci men Type: BLOOD SPECIMENOrdering Facility: [facility] Address: [address] [place] [address] Performed By: #### 5 8410-2 ####[facility] LABORATORYIA [id number] [place] [address] [place] MCV (RBC) [Entitic vol] 82.8 fL Normal 80.0-100.0 [facility] Comment on above: Order Comment: Speci men Type: BLOOD SPECIMENOrdering Facility: [facility] Address: [address] [place] [address] Performed By: #### 5 8410-2 ####[facility] [id number] [place] [id number] [place] Nucleated RBC (Bld) [#/Vol] 10*3/uL Normal <0.01 [facility] Comment on above: Order Comment: Speci men Type: BLOOD SPECIMENOrdering Facility: [facility] Address: [address] [place] [address] Performed By: #### 5 8410-2 ####[facility] [id number] [place] [id number] [place] Platelet mean volume (Bld) [Entitic vol] 9.4 fL Normal 9.0-12.7 [facility] Comment on above: Order Comment: Speci men Type: BLOOD SPECIMENOrdering Facility: [facility] Address: [address] [place] [address] Performed By: #### 5 8410-2 ####[facility] [id number] [place] [id number] [place] Platelets (Bld) [#/Vol] 305 10*3/uL Normal 150-400 [facility] Comment on above: Order Comment: Speci men Type: BLOOD SPECIMENOrdering Facility: [facility] Address: [address] [place] [address] Performed By: #### 5 8410-2 ####[facility] LABORATORYCLIA [id number] [place] [address] [facility] [place] RBC (Bld) [#/Vol] 4.31 10*6/uL Normal 3.90-5.20 [facility] Comment on above: Order Comment: Speci men Type: BLOOD SPECIMENOrdering Facility: [facility] Address: [address] [place] [address] Performed By: #### 5 8410-2 ####[facility]ITALCLIA [id number] [place] [address] [facility] WBC (Bld) [#/Vol] 13.67 10*3/uL High 3.70-11.00 [facility] Comment on above: Order Comment: Speci men Type: BLOOD SPECIMENOrdering Facility: [facility] Address: [address] [place] [address] Performed By: #### 5 8410-2 ####[facility] HOSPITALIA [id number] [place] [address] [facility] [place] Comprehensive metabolic 2000 panelon 12-30-2023 Albumin [Mass/Vol] 3.6 g/dL Low 3.9-4.9 [facility] Comment on above: Order Comment: Speci men Type: BLOOD SPECIMENOrdering Facility: [facility] Address: [address] [place] [address] Performed By: #### 2 4323-8, 44973-1, 2777-1 ####[facility] LABORATORYCLIA [id number] [place] [address] [place]#### 2143-6 ####[facility] LABCLIA [id number] [address] [place] ALP [Catalytic activity/Vol] 176 U/L High 34-123 [facility] Comment on above: Order Comment: Speci men Type: BLOOD SPECIMENOrdering Facility: [facility] Address: [address] [place] [address] Performed By: #### 2 4323-8, , 2776-05 ####[facility] LABORATORYCLIA [id number] [place] [address] [place]#### 2143-6 ####[facility] LABCLIA [id number] [address] [address] [place] ALT [Catalytic activity/Vol] 130 U/L High 7-38 [facility] Comment on above: Order Comment: Speci men Type: BLOOD SPECIMENOrdering Facility: [facility] Address: [address] [place] [address] Performed By: #### 2 4323-8, , 2776-05 ####[facility] HOSPITALIA [id number] [place] [address] [place]#### 2143-6 ####[facility] LABCLIA [id number] [place] [address] [place] Anion gap [Moles/Vol] 12 mmol/L Normal 8-15 [facility] Comment on above: Order Comment: Speci men Type: BLOOD SPECIMENOrdering Facility: [facility] Address: [address] [place] [address] Performed By: #### 2 4323-8, , 2776-05 ####[facility] LABORATORYCLIA [id number] [place] [address] [place]#### 2143-6 ####[facility] LABCLIA [id number] [address] [address] [place] AST [Catalytic activity/Vol] 92 U/L High 13-35 [facility] Comment on above: Order Comment: Speci men Type: BLOOD SPECIMENOrdering Facility: [facility] Address: [address] [place] [address] Performed By: #### 2 4323-8, , 2776-05 ####[facility] LABORATORYCLIA [id number] [place] [address] [place]#### 2143-6 ####[facility] LABCLIA [id number] [address] [address] [place] Bilirubin [Mass/Vol] 0.6 mg/dL Normal 0.2-1.3 [facility] Comment on above: Order Comment: Speci men Type: BLOOD SPECIMENOrdering Facility: [facility] Address: [address] [place] [address] Performed By: #### 2 4323-8, , 2776-05 ####[facility] HOSPITALIA [id number] [place] [address] [place]#### 2143-6 ####[facility] LABCLIA [id number] [place] [address] [place] Calcium [Mass/Vol] 8.6 mg/dL Normal 8.5-10.2 [facility] Comment on above: Order Comment: Speci men Type: BLOOD SPECIMENOrdering Facility: [facility] Address: [address] [place] [address] Performed By: #### 2 4323-8, , 2776-05 ####[facility] LABORATORYIA [id number] [place] [address] [place]#### 2143-6 ####[facility] LABCLIA [id number] [address] [address] [place] Chloride [Moles/Vol] 99 mmol/L Normal 98-107 [facility] Comment on above: Order Comment: Speci men Type: BLOOD SPECIMENOrdering Facility: [facility] Address: [address] [place], [place] [address] Performed By: #### 2 4323-8, , 2776-05 ####[facility] LABORATORYCLIA [id number] [place] [address] [place]#### 2143-6 ####[facility] LABCLIA [id number] [place] [address] [place] CO2 [Moles/Vol] 32 mmol/L High 22-30 [facility] Comment on above: Order Comment: Speci men Type: BLOOD SPECIMENOrdering Facility: [facility] Address: [address] [place] [address] Performed By: #### 2 4323-8, 83726-8, 2776-05 ####[facility] LABORATORYCLIA [id number] [place] [address] [place]#### 2143-6 ####[facility] LABCLIA [id number] [place] [address] [place] Creatinine [Mass/Vol] 0.78 mg/dL Normal 0.58-0.96 [facility] Comment on above: Order Comment: Speci men Type: BLOOD SPECIMENOrdering Facility: [facility] Address: [address] [place] [address] Performed By: #### 2 4323-8, , 2776-05 ####[facility] LABORATORYCLIA [id number] [place] [address] [place]#### 2143-6 ####[facility] LABCLIA [id number] [address] [place] Creatinine and Glomerular filtration rate.predicted panel (S/P/Bld) 87 mL/min/1.73m??? Normal >=60 [facility] Comment on above: Order Comment: Speci men Type: BLOOD SPECIMENOrdering Facility: [facility] Address: [address] [place] [address] Result Comment: Tuyet mated Glomerular Filtration Rate (eGFR) is calculated using the 2020 CKD-EPI creatinine equation. This equation utilizes serum creatinine, sex, and age as parameters. The creatinine assay has traceable calibration to isotope dilution-mass spectrometry. Refer to KDIGO guidelines for clinical interpretation. In patients with unstable renal function, e.g. those with acute kidney injury, the eGFR may not accurately reflect actual GFR. Performed By: #### 2 4323-8, 75471-7, 2776-05 ####[facility]ORATORYCLIA [id number] [place] [address] [place]#### 2143-6 ####[facility] LABCLIA [id number] [place] [address] [place] Glucose [Mass/Vol] 85 mg/dL Normal 74-99 [facility] Comment on above: Order Comment: Nicolle phipps Type: BLOOD SPECIMENOrdering Facility: [facility] Address: [address] [place] [address] Result Comment: The Citizen [place] Diabetes Association (ADA) provides guidance for cutoff values for fasting glucose and random glucose. The ADA defines fasting as no caloric intake for at least 8 hours. Fasting plasma glucose results between 100 to 125 mg/dL indicate increased risk for diabetes (prediabetes).Fasting plasma glucose results greater than or equal to 126 mg/dL meet the criteria for diagnosis of diabetes. In the absence of unequivocal hyperglycemia, results should be confirmed by repeat testing. In a patient with classic symptoms of hyperglycemia or hyperglycemic crisis, random plasma glucose results greater than or equal to 200 mg/dL meet the criteria for diagnosis of diabetes.Reference: Standards of Medical Care in Diabetes 2016, Citizen [place] Diabetes Association. Diabetes Care. 2016.39(Suppl 1). Performed By: #### 2 4323-8, 41591-3, 2776-05 ####[facility] LABORATORYCLIA [id number] [place] [address] [place]#### 2143-6 ####[facility] LABIA [id number] [place] [address] [place] Potassium [Moles/Vol] 3.5 mmol/L Low 3.7-5.1 [facility] Comment on above: Order Comment: Nicolle phipps Type: BLOOD SPECIMENOrdering Facility: [facility] Address: [address] [place] [address] Performed By: #### 2 4323-8, , 2776-05 ####[facility] LABORATORYCLIA [id number] [place] [address] [place]#### 2143-6 ####[facility] LABCLIA [id number] [address] [address] [place] Protein [Mass/Vol] 6.2 g/dL Low 6.3-8.0 [facility] Comment on above: Order Comment: Speci men Type: BLOOD SPECIMENOrdering Facility: [facility] Address: [address] [place] [address] Performed By: #### 2 4323-8, , 2776-05 ####[facility] HOSPITALIA [id number] [place] [address] [place]#### 2143-6 ####[facility] LABCLIA [id number] [place] [address] [place] Sodium [Moles/Vol] 143 mmol/L Normal 136-144 [facility] Comment on above: Order Comment: Speci men Type: BLOOD SPECIMENOrdering Facility: [facility] Address: [address] [place] [address] Performed By: #### 2 4323-8, , 2776-05 ####[facility] LABORATORYCLIA [id number] [place] [address] [place]#### 2143-6 ####[facility] LABCLIA [id number] [place] [address] [place] Urea nitrogen [Mass/Vol] 21 mg/dL Normal 7-21 [facility] Comment on above: Order Comment: Speci men Type: BLOOD SPECIMENOrdering Facility: [facility] Address: [address] [place] [address] Performed By: #### 2 4323-8, , 2776-05 ####[facility] HOSPITALIA [id number] [place] [address] [place]#### 2143-6 ####[facility] LABIA [id number] [place] [address] [place] Cortis SerPl-mCncon 12-30-19 Cortisol [Mass/Vol] 3.2 ug/dL Low 4.8-19.5 [facility] Comment on above: Order Comment: Speci men Type: BLOOD SPECIMENOrdering Facility: [facility] Address: [address] [place] [address] Result Comment: Prov ided reference range is from 6-10 AM sample collection time.Cortisol Reference Range: 6-10 AM = 4.8-19.5 ug/dL, 4-8 PM = 2.5-11.9 ug/dL Performed By: #### 2 4323-8, , 2776-05 ####[facility] HOSPITALIA [id number] [place] [address] [place]#### 2143-6 ####[facility] LABIA [id number] [place] [address] [place] Magnesium SerPl-mCncon 12-29 Magnesium [Mass/Vol] 2.4 mg/dL High 1.7-2.3 [facility] Comment on above: Order Comment: Speci men Type: BLOOD SPECIMENOrdering Facility: [facility] Address: [address] [place] [address] Performed By: #### 2 4323-8, 90882-3, 2776-05 ####[facility] HOSPITALIA [id number] [place] [address] [place]#### 2143-6 ####[facility] LABIA [id number] [place] [address] [place] Phosphate SerPl-mCncon 12-29 Phosphate [Mass/Vol] 2.5 mg/dL Low 2.7-4.8 [facility] Comment on above: Order Comment: Speci men Type: BLOOD SPECIMENOrdering Facility: [facility] Address: [address] [place] [address] Performed By: #### 2 4323-8, 73132-3, 2777-1 ####[facility] LABORATORYCLIA [id number] [place] [address] [place]#### 2143-6 ####[facility] LABCLIA [id number] [facility] [id number] [id number] [place] ALLIED HEALTHon 12-29-2023 ALLIED HEALTH Normal [facility] CBC W Auto Differential pane l (Bld)on 12-29-2023 Basophils (Bld) [#/Vol] 0.06 10*3/uL Normal <0.11 [facility] Comment on above: Order Comment: Speci men Type: BLOOD SPECIMENOrdering Facility: [facility] Address: [address] [place] [address] Performed By: #### 5 7021-8 ####[facility] HOSPITALIA [id number] [place] [id number] [place] Basophils/100 WBC (Bld) 0.4 % Normal [facility] Comment on above: Order Comment: Speci men Type: BLOOD SPECIMENOrdering Facility: [facility] Address: [address] [place] [address] Performed By: #### 5 7021-8 ####[facility] LABORATORYCLIA [id number] [place] [address] [place] Differential cell count method Nom (Bld) Auto Normal [facility] Comment on above: Order Comment: Speci men Type: BLOOD SPECIMENOrdering Facility: [facility] Address: [address] [place] [address] Performed By: #### 5 7021-8 ####[facility] LABORATORYIA [id number] [place] [address] [place] Eosinophils (Bld) [#/Vol] 0.03 10*3/uL Normal <0.46 [facility] Comment on above: Order Comment: Speci men Type: BLOOD SPECIMENOrdering Facility: [facility] Address: [address] [place] [address] Performed By: #### 5 7021-8 ####[facility] LABORATORYCLIA [id number] [place] [address] [place] Eosinophils/100 WBC (Bld) 0.2 % Normal [facility] Comment on above: Order Comment: Speci men Type: BLOOD SPECIMENOrdering Facility: [facility] Address: [address] [place] [address] Performed By: #### 5 7021-8 ####[facility]ITALCLIA [id number] [place] [address] [place] Erythrocyte distribution width (RBC) [Ratio] 16.2 % High 11.5-15.0 [facility] Comment on above: Order Comment: Speci men Type: BLOOD SPECIMENOrdering Facility: [facility] Address: [address] [place] [address] Performed By: #### 5 7021-8 ####[facility] LABORATORYIA [id number] [place] [address] [place] Hematocrit (Bld) [Volume fraction] 37.0 % Normal 36.0-46.0 [facility] Comment on above: Order Comment: Speci men Type: BLOOD SPECIMENOrdering Facility: [facility] Address: [address] [place] [address] Performed By: #### 5 7021-8 ####[facility] LABORATORYCLIA [id number] [place] [address] [place] Hemoglobin (Bld) [Mass/Vol] 11.6 g/dL Normal 11.5-15.5 [facility] Comment on above: Order Comment: Speci men Type: BLOOD SPECIMENOrdering Facility: [facility] Address: [address] [place] [address] Performed By: #### 5 7021-8 ####[facility] LABORATORYCLIA [id number] [facility] [place] [address] [place] Immature granulocytes (Bld) [#/Vol] 0.10 10*3/uL High <0.10 [facility] Comment on above: Order Comment: Speci men Type: BLOOD SPECIMENOrdering Facility: [facility] Address: [address] [place] [address] Performed By: #### 5 7021-8 ####[facility] LABORATORYCLIA [id number] [place] [address] [place] Immature granulocytes/100 WBC (Bld) 0.7 % Normal [facility] Comment on above: Order Comment: Speci men Type: BLOOD SPECIMENOrdering Facility: [facility] Address: [address] [place] [address] Performed By: #### 5 7021-8 ####[facility] HOSPITALIA [id number] [place] [address] [place] Lymphocytes (Bld) [#/Vol] 0.53 10*3/uL Low 1.00-4.00 [facility] Comment on above: Order Comment: Speci men Type: BLOOD SPECIMENOrdering Facility: [facility] Address: [address] [place] [address] Performed By: #### 5 7021-8 ####[facility] HOSPITALIA [id number] [place] [id number] [place] Lymphocytes/100 WBC (Bld) 3.8 % Normal [facility] Comment on above: Order Comment: Speci men Type: BLOOD SPECIMENOrdering Facility: [facility] Address: [address] [place] [address] Performed By: #### 5 7021-8 ####[facility] LABORATORYIA [id number] [place] [id number] [place] MCH (RBC) [Entitic mass] 27.0 pg Normal 26.0-34.0 [facility] Comment on above: Order Comment: Speci men Type: BLOOD SPECIMENOrdering Facility: [facility] Address: [address] [place] [address] Performed By: #### 5 7021-8 ####[facility] HOSPITALIA [id number] [place] [id number] [place] MCHC (RBC) [Mass/Vol] 31.4 g/dL Normal 30.5-36.0 [facility] Comment on above: Order Comment: Speci men Type: BLOOD SPECIMENOrdering Facility: [facility] Address: [address] [place] [address] Performed By: #### 5 7021-8 ####[facility] HOSPITALIA [id number] [place] [address] [place] MCV (RBC) [Entitic vol] 86.2 fL Normal 80.0-100.0 [facility] Comment on above: Order Comment: Speci men Type: BLOOD SPECIMENOrdering Facility: [facility] Address: [address] [place] [address] Performed By: #### 5 7021-8 ####[facility] HOSPITALIA [id number] [place] [address] [place] Monocytes (Bld) [#/Vol] 0.70 10*3/uL Normal <0.87 [facility] Comment on above: Order Comment: Speci men Type: BLOOD SPECIMENOrdering Facility: [facility] Address: [address] [place] [address] Performed By: #### 5 7021-8 ####[facility] HOSPITALIA [id number] [address] [place] Monocytes/100 WBC (Bld) 5.1 % Normal [facility] Comment on above: Order Comment: Speci men Type: BLOOD SPECIMENOrdering Facility: [facility] Address: [address] [place] [address] Performed By: #### 5 7021-8 ####[facility] LABORATORYIA [id number] [place] [id number] [place] Neutrophils (Bld) [#/Vol] 12.35 10*3/uL High 1.45-7.50 [facility] Comment on above: Order Comment: Speci men Type: BLOOD SPECIMENOrdering Facility: [facility] Address: [address] [place] [address] Performed By: #### 5 7021-8 ####[facility] LABORATORYCLIA [id number] [facility] [place] [place] [address] [place] Neutrophils/100 WBC (Bld) 89.8 % Normal [facility] Comment on above: Order Comment: Speci men Type: BLOOD SPECIMENOrdering Facility: [facility] Address: [address] [place] [address] Performed By: #### 5 7021-8 ####[facility] LABORATORYIA [id number] [place] [address] [place] Nucleated RBC (Bld) [#/Vol] 10*3/uL Normal <0.01 [facility] Comment on above: Order Comment: Speci men Type: BLOOD SPECIMENOrdering Facility: [facility] Address: [address] [place] [address] Performed By: #### 5 7021-8 ####[facility] H[facility]PITALIA [id number] [place] [address] [place] Nucleated RBC/100 WBC (Bld) [Ratio] 0.0 /100 WBC Normal [facility] Comment on above: Order Comment: Speci men Type: BLOOD SPECIMENOrdering Facility: [facility] Address: [address] [place] [address] Performed By: #### 5 7021-8 ####[facility] LABORATORYIA [id number] [facility] [place] [place] [address] [place] Platelet mean volume (Bld) [Entitic vol] 9.7 fL Normal 9.0-12.7 [facility] Comment on above: Order Comment: Speci men Type: BLOOD SPECIMENOrdering Facility: [facility] Address: [address] [place] [address] Performed By: #### 5 7021-8 ####[facility] LABORATORYCLIA [id number] [facility] [address] [place] Platelets (Bld) [#/Vol] 244 10*3/uL Normal 150-400 [facility] Comment on above: Order Comment: Speci men Type: BLOOD SPECIMENOrdering Facility: [facility] Address: [address] [place] [address] Performed By: #### 5 7021-8 ####[facility] LABORATORYCLIA [id number] [place] [address] [place] RBC (Bld) [#/Vol] 4.29 10*6/uL Normal 3.90-5.20 [facility] Comment on above: Order Comment: Speci men Type: BLOOD SPECIMENOrdering Facility: [facility] Address: [address] [place] [address] Performed By: #### 5 7021-8 ####[facility]ITALCLIA [id number] [place] [address] [place] WBC (Bld) [#/Vol] 13.77 10*3/uL High 3.70-11.00 [facility] Comment on above: Order Comment: Speci men Type: BLOOD SPECIMENOrdering Facility: [facility] Address: [address] [place] [address] Performed By: #### 5 7021-8 ####[facility] HOSPITALIA [id number] [place] [address] [facility] [place] CONSULTon 12-29-2023 CONSULT Normal [facility] CONSULT PROGon 12-29-2023 CONSULT PROG Normal [facility] CONSULT PRO Normal [facility] Comprehensive metabolic 2000 panelon 12-29-2023 Albumin [Mass/Vol] 4.0 g/dL Normal 3.9-4.9 [facility] Comment on above: Order Comment: Speci men Type: BLOOD SPECIMENOrdering Facility: [facility] Address: [address] [place] [address] Performed By: #### 2 4323-8, 49964-3, 2777-1, 3016-3 ####[facility] LABORATORYCLIA [id number] [place] [address] [place] ALP [Catalytic activity/Vol] 152 U/L High 34-123 [facility] Comment on above: Order Comment: Speci men Type: BLOOD SPECIMENOrdering Facility: [facility] Address: [address] [place] [address] Performed By: #### 2 4323-8, 97029-8, 2777-1, 3016-3 ####[facility] LABORATORYCLIA [id number] [place] [address] [place] ALT [Catalytic activity/Vol] 105 U/L High 7-38 [facility] Comment on above: Order Comment: Speci men Type: BLOOD SPECIMENOrdering Facility: [facility] Address: [address] [place] [address] Performed By: #### 2 4323-8, 87985-2, 7-1, 3016-3 ####[facility] LABORATORYCLIA [id number] [place] [address] [place] Anion gap [Moles/Vol] 11 mmol/L Normal 8-15 [facility] Comment on above: Order Comment: Speci men Type: BLOOD SPECIMENOrdering Facility: [facility] Address: [address] [place] [address] Performed By: #### 2 4323-8, 07328-0, 7-1, 3016-3 ####[facility] LABORATORYCLIA [id number] [place] [address] [place] AST [Catalytic activity/Vol] 33 U/L Normal 13-35 [facility] Comment on above: Order Comment: Speci men Type: BLOOD SPECIMENOrdering Facility: [facility] Address: [address] [place] [address] Performed By: #### 2 4323-8, 30812-0, 7-1, 3016-3 ####[facility] LABORATORYCLIA [id number] [place] [address] [place] Bilirubin [Mass/Vol] 0.7 mg/dL Normal 0.2-1.3 [facility] Comment on above: Order Comment: Speci men Type: BLOOD SPECIMENOrdering Facility: [facility] Address: [address] [place] [address] Performed By: #### 2 4323-8, 37310-0, 2776-05, 3015-3 ####[facility] LABORATORYCLIA [id number] [place] [address] [place] Calcium [Mass/Vol] 9.0 mg/dL Normal 8.5-10.2 [facility] Comment on above: Order Comment: Speci men Type: BLOOD SPECIMENOrdering Facility: [facility] Address: [address] [place], [place] [address] Performed By: #### 2 4323-8, , 2776-05, 3 ####[facility] LABORATORYCLIA [id number] [place] [address] [place] Chloride [Moles/Vol] 95 mmol/L Low 98-107 [facility] Comment on above: Order Comment: Speci men Type: BLOOD SPECIMENOrdering Facility: [facility] Address: [address] [place], [place] [address] Performed By: #### 2 4323-8, , 2776-05, 3 ####[facility] LABORATORYCLIA [id number] [place] [address] [place] CO2 [Moles/Vol] 30 mmol/L Normal 22-30 [facility] Comment on above: Order Comment: Speci men Type: BLOOD SPECIMENOrdering Facility: [facility] Address: [address] [place], [place] [id number] Performed By: #### 2 4323-8, 56180-2, 2776-05, 3 ####[facility] LABORATORYCLIA [id number] [place] [address] [place] Creatinine [Mass/Vol] 0.96 mg/dL Normal 0.58-0.96 [facility] Comment on above: Order Comment: Speci men Type: BLOOD SPECIMENOrdering Facility: [facility] Address: [address] [place] [address] Performed By: #### 2 4323-8, 04746-3, 2777-1, 3016-3 ####[facility] LABORATORYCLIA [id number] [place] [address] [place] Creatinine and Glomerular filtration rate.predicted panel (S/P/Bld) 67 mL/min/1.73m??? Normal >=60 [facility] Comment on above: Order Comment: Nicolle phipps Type: BLOOD SPECIMENOrdering Facility: [facility] Address: [address] [place] [address] Result Comment: Tuyet mated Glomerular Filtration Rate (eGFR) is calculated using the 2020 CKD-EPI creatinine equation. This equation utilizes serum creatinine, sex, and age as parameters. The creatinine assay has traceable calibration to isotope dilution-mass spectrometry. Refer to KDIGO guidelines for clinical interpretation. In patients with unstable renal function, e.g. those with acute kidney injury, the eGFR may not accurately reflect actual GFR. Performed By: #### 2 4323-8, 07366-3, 2777-1, 3016-3 ####[facility] LABORATORYCLIA [id number] [place] [address] [place] Glucose [Mass/Vol] 91 mg/dL Normal 74-99 [facility] Comment on above: Order Comment: Nicolle phipps Type: BLOOD SPECIMENOrdering Facility: [facility] Address: [address] [place] [address] Result Comment: The Citizen Of [place] Diabetes Association (ADA) provides guidance for cutoff values for fasting glucose and random glucose. The ADA defines fasting as no caloric intake for at least 8 hours. Fasting plasma glucose results between 100 to 125 mg/dL indicate increased risk for diabetes (prediabetes).Fasting plasma glucose results greater than or equal to 126 mg/dL meet the criteria for diagnosis of diabetes. In the absence of unequivocal hyperglycemia, results should be confirmed by repeat testing. In a patient with classic symptoms of hyperglycemia or hyperglycemic crisis, random plasma glucose results greater than or equal to 200 mg/dL meet the criteria for diagnosis of diabetes.Reference: Standards of Medical Care in Diabetes 2016, Citizen Of [place] Diabetes Association. Diabetes Care. 2016.39(Suppl 1). Performed By: #### 2 4323-8, 74378-3, 2777-1, 3016-3 ####[facility] LABORATORYCLIA [id number] [place] [address] [place] Potassium [Moles/Vol] 3.7 mmol/L Normal 3.7-5.1 [facility] Comment on above: Order Comment: Speci men Type: BLOOD SPECIMENOrdering Facility: [facility] Address: [address] [place] [address] Performed By: #### 2 4323-8, 71337-7, 7-1, 6-3 ####[facility] LABORATORYCLIA [id number] [place] [address] [place] Protein [Mass/Vol] 6.8 g/dL Normal 6.3-8.0 [facility] Comment on above: Order Comment: Speci men Type: BLOOD SPECIMENOrdering Facility: [facility] Address: [address] [place] [address] Performed By: #### 2 4323-8, 28301-1, 2777-1, 3016-3 ####[facility] H[facility]PITALIA [id number] [place] [address] [place] Sodium [Moles/Vol] 136 mmol/L Normal 136-144 [facility] Comment on above: Order Comment: Speci men Type: BLOOD SPECIMENOrdering Facility: [facility] Address: [address] [place] [address] Performed By: #### 2 4323-8, 30365-1, 7-1, 6-3 ####[facility] LABORATORYIA [id number] [place] [address] [place] Urea nitrogen [Mass/Vol] 20 mg/dL Normal 7-21 [facility] Comment on above: Order Comment: Speci men Type: BLOOD SPECIMENOrdering Facility: [facility] Address: [address] [place] [address] Performed By: #### 2 4323-8, 02636-2, 2777-1, 3016-3 ####[facility] HOSPITALIA [id number] [place] [address] [place] Magnesium SerPl-mCncon 12-28 Magnesium [Mass/Vol] 2.2 mg/dL Normal 1.7-2.3 [facility] Comment on above: Order Comment: Speci men Type: BLOOD SPECIMENOrdering Facility: [facility] Address: [address] [place] [address] Performed By: #### 2 4323-8, 45976-1, 7-1, 3016-3 ####[facility] HOSPITALIA [id number] [place] [address] [place] NUTRITIONon 12-29-2023 NUTRITION Normal [facility] Phosphate SerPl-mCncon 12-28 Phosphate [Mass/Vol] 3.8 mg/dL Normal 2.7-4.8 [facility] Comment on above: Order Comment: Speci men Type: BLOOD SPECIMENOrdering Facility: [facility] Address: [address] [place] [address] Performed By: #### 2 4323-8, 66112-5, 2776-1, 6-3 ####[facility] HOSPITALIA [id number] [place] [address] [place] T4 Free SerPl-mCncon 024 Free T4 [Mass/Vol] 0.7 ng/dL Low 0.9-1.7 [facility] Comment on above: Order Comment: Speci men Type: BLOOD SPECIMENOrdering Facility: [facility] Address: [address] [place] [address] Performed By: #### 3 024-7 ####[facility] LABCLIA [id number] [place] [address] [place] TSH SerPl-aCncon 12-29-2023 TSH Qn 22.290 m[IU]/L High 0.270-4.200 [facility] Comment on above: Order Comment: Speci men Type: BLOOD SPECIMENOrdering Facility: [facility] Address: [address] [place] [address] Performed By: #### 2 4323-8, 39234-0, 2777-1, 3016-3 ####[facility] LABORATORYCLIA [id number] [place] [address] [place] XR ABDOMEN 1V SUPINEon 12-28 XR ABDOMEN 1V SUPINE Normal [facility] CASE MANAGEMon 12-28-2023 CASE MANAGEM Normal [facility] CASE MANAGEM Normal [facility] CASE MANAGEM Normal [facility] CBC W Auto Differential pane l (Bld)on 12-28-2023 Basophils (Bld) [#/Vol] 0.11 10*3/uL High <0.11 [facility] Comment on above: Order Comment: Speci men Type: BLOOD SPECIMENOrdering Facility: [facility] Address: [address] [place] [address] Performed By: #### 5 7021-8 ####[facility] LABORATORYCLIA [id number] [place] [address] [place] Basophils/100 WBC (Bld) 0.5 % Normal [facility] Comment on above: Order Comment: Speci men Type: BLOOD SPECIMENOrdering Facility: [facility] Address: [address] [place] [address] Performed By: #### 5 7021-8 ####[facility] LABORATORYIA [id number] [place] [address] [place] Differential cell count method Nom (Bld) Auto Normal [facility] Comment on above: Order Comment: Speci men Type: BLOOD SPECIMENOrdering Facility: [facility] Address: [address] [place] [address] Performed By: #### 5 7021-8 ####[facility] LABORATORYCLIA [id number] [place] [address] [place] Eosinophils (Bld) [#/Vol] 0.11 10*3/uL Normal <0.46 [facility] Comment on above: Order Comment: Speci men Type: BLOOD SPECIMENOrdering Facility: [facility] Address: [address] [place] [address] Performed By: #### 5 7021-8 ####[facility] LABORATORYIA [id number] [place] [id number] [place] Eosinophils/100 WBC (Bld) 0.5 % Normal [facility] Comment on above: Order Comment: Speci men Type: BLOOD SPECIMENOrdering Facility: [facility] Address: [address] [place] [address] Performed By: #### 5 7021-8 ####[facility] HOSPITALIA [id number] [place] [address] [place] Erythrocyte distribution width (RBC) [Ratio] 16.1 % High 11.5-15.0 [facility] Comment on above: Order Comment: Speci men Type: BLOOD SPECIMENOrdering Facility: [facility] Address: [address] [place] [address] Performed By: #### 5 7021-8 ####[facility] HOSPITALIA [id number] [place] [address] [place] Hematocrit (Bld) [Volume fraction] 40.9 % Normal 36.0-46.0 [facility] Comment on above: Order Comment: Speci men Type: BLOOD SPECIMENOrdering Facility: [facility] Address: [address] [place] [address] Performed By: #### 5 7021-8 ####[facility] HOSPITALIA [id number] [facility].[place] [id number] [place] Hemoglobin (Bld) [Mass/Vol] 13.1 g/dL Normal 11.5-15.5 [facility] Comment on above: Order Comment: Speci men Type: BLOOD SPECIMENOrdering Facility: [facility] Address: [address] [place] [address] Performed By: #### 5 7021-8 ####[facility] LABORATORYIA [id number] [place] [address] [place] Immature granulocytes (Bld) [#/Vol] 0.24 10*3/uL High <0.10 [facility] Comment on above: Order Comment: Speci men Type: BLOOD SPECIMENOrdering Facility: [facility] Address: [address] [place] [address] Performed By: #### 5 7021-8 ####[facility] LABORATORYIA [id number] [place] [address] [place] Immature granulocytes/100 WBC (Bld) 1.1 % Normal [facility] Comment on above: Order Comment: Speci men Type: BLOOD SPECIMENOrdering Facility: [facility] Address: [address] [place] [address] Performed By: #### 5 7021-8 ####[facility] HOSPITALIA [id number] [place] [address] [place] Lymphocytes (Bld) [#/Vol] 0.92 10*3/uL Low 1.00-4.00 [facility] Comment on above: Order Comment: Speci men Type: BLOOD SPECIMENOrdering Facility: [facility] Address: [address] [place] [address] Performed By: #### 5 7021-8 ####[facility] HOSPITALIA [id number] [place] [address] [place] Lymphocytes/100 WBC (Bld) 4.4 % Normal [facility] Comment on above: Order Comment: Speci men Type: BLOOD SPECIMENOrdering Facility: [facility] Address: [address] [place] [address] Performed By: #### 5 7021-8 ####[facility] HOSPITALIA [id number] [place] [address] [place] MCH (RBC) [Entitic mass] 27.2 pg Normal 26.0-34.0 [facility] Comment on above: Order Comment: Speci men Type: BLOOD SPECIMENOrdering Facility: [facility] Address: [address] [place] [address] Performed By: #### 5 7021-8 ####[facility] LABORATORYIA [id number] [place], [place] [id number] [place] [address] [place] MCHC (RBC) [Mass/Vol] 32.0 g/dL Normal 30.5-36.0 [facility] Comment on above: Order Comment: Speci men Type: BLOOD SPECIMENOrdering Facility: [facility] Address: [address] [place] [address] Performed By: #### 5 7021-8 ####[facility] LABORATORYCLIA [id number] [place] [id number] [place] MCV (RBC) [Entitic vol] 85.0 fL Normal 80.0-100.0 [facility] Comment on above: Order Comment: Speci men Type: BLOOD SPECIMENOrdering Facility: [facility] Address: [address] [place] [address] Performed By: #### 5 7021-8 ####[facility] HOSPITALIA [id number] [place] [address] [place] Monocytes (Bld) [#/Vol] 0.93 10*3/uL High <0.87 [facility] Comment on above: Order Comment: Speci men Type: BLOOD SPECIMENOrdering Facility: [facility] Address: [address] [place] [address] Performed By: #### 5 7021-8 ####[facility] LABORATORYIA [id number] [address] [place] Monocytes/100 WBC (Bld) 4.4 % Normal [facility] Comment on above: Order Comment: Speci men Type: BLOOD SPECIMENOrdering Facility: [facility] Address: [address] [place] [address] Performed By: #### 5 7021-8 ####[facility] LABORATORYIA [id number] [place] [address] [place] Neutrophils (Bld) [#/Vol] 18.66 10*3/uL High 1.45-7.50 [facility] Comment on above: Order Comment: Speci men Type: BLOOD SPECIMENOrdering Facility: [facility] Address: [address] [place] [address] Performed By: #### 5 7021-8 ####[facility] LABORATORYCLIA [id number] [place] [id number] [place] Neutrophils/100 WBC (Bld) 89.1 % Normal [facility] Comment on above: Order Comment: Speci men Type: BLOOD SPECIMENOrdering Facility: [facility] Address: [address] [place] [address] Performed By: #### 5 7021-8 ####[facility] LABORATORYCLIA [id number] [place] [address] [place] Nucleated RBC (Bld) [#/Vol] 10*3/uL Normal <0.01 [facility] Comment on above: Order Comment: Speci men Type: BLOOD SPECIMENOrdering Facility: [facility] Address: [address] [place] [address] Performed By: #### 5 7021-8 ####[facility] HOSPITALIA [id number] [place] [id number] [place] Nucleated RBC/100 WBC (Bld) [Ratio] 0.0 /100 WBC Normal [facility] Comment on above: Order Comment: Speci men Type: BLOOD SPECIMENOrdering Facility: [facility] Address: [address] [place] [address] Performed By: #### 5 7021-8 ####[facility] LABORATORYIA [id number] [place] [id number] [place] Platelet mean volume (Bld) [Entitic vol] 9.3 fL Normal 9.0-12.7 [facility] Comment on above: Order Comment: Speci men Type: BLOOD SPECIMENOrdering Facility: [facility] Address: [address] [place] [address] Performed By: #### 5 7021-8 ####[facility] LABORATORYIA [id number] [place] [address] [place] Platelets (Bld) [#/Vol] 302 10*3/uL Normal 150-400 [facility] Comment on above: Order Comment: Speci men Type: BLOOD SPECIMENOrdering Facility: [facility] Address: [address] [place] [address] Performed By: #### 5 7021-8 ####[facility] HOSPITALIA [id number] [place] [address] [place] RBC (Bld) [#/Vol] 4.81 10*6/uL Normal 3.90-5.20 [facility] Comment on above: Order Comment: Speci men Type: BLOOD SPECIMENOrdering Facility: [facility] Address: [address] [place] [address] Performed By: #### 5 7021-8 ####[facility] HOSPITALIA [id number] [place] [id number] [place] WBC (Bld) [#/Vol] 20.97 10*3/uL High 3.70-11.00 [facility] Comment on above: Order Comment: Speci men Type: BLOOD SPECIMENOrdering Facility: [facility] Address: [address] [place] [address] Performed By: #### 5 7021-8 ####[facility] HOSPITALIA [id number] [place] [id number] [place] CONSULTon 12-28-2023 CONSULT Normal [facility] CONSULT PROGon 12-28-2023 CONSULT PROG Normal [facility] CRP SerPl-mCncon 12-28-2023 CRP [Mass/Vol] 9.6 mg/dL High <0.9 [facility] Comment on above: Order Comment: Speci men Type: BLOOD SPECIMENOrdering Facility: [facility] Address: [address] [place] [address] Performed By: #### 1 988-5, 08876-1, 2777-1 ####[facility] LABORATORYIA [id number] [place] [address] [facility] [place] Gas and Carbon monoxide pane l (BldV)on 12-28-2023 Base excess Calc (BldV) [Moles/Vol] 4 mmol/L High 0-2 [facility] Comment on above: Order Comment: Speci men Type: VENOUS BLOOD SPECIMENOrdering Facility: [facility] Address: [address] [place] [address] Performed By: #### 2 4344-4 ####[facility] LABORATORYIA [id number] [place] [address] [place] Body temperature 97.52 [degF] Normal [facility] Comment on above: Order Comment: Speci men Type: VENOUS BLOOD SPECIMENOrdering Facility: [facility] Address: [address] [place] [address] Performed By: #### 2 4344-4 ####[facility] H[facility]PITALIA [id number] [place] [address] [place] Calcium.ionized (Bld) [Mass/Vol] 1.05 mmol/L Low 1.08-1.30 [facility] Comment on above: Order Comment: Speci men Type: VENOUS BLOOD SPECIMENOrdering Facility: [facility] Address: [address] [place] [address] Performed By: #### 2 4344-4 ####[facility] HOSPITALIA [id number] [place] [address] [place] Calcium.ionized adjusted to pH 7.4 (BldA) [Moles/Vol] 1.07 mmol/L Low 1.08-1.30 [facility] Comment on above: Order Comment: Speci men Type: VENOUS BLOOD SPECIMENOrdering Facility: [facility] Address: [address] [place] [address] Performed By: #### 2 4344-4 ####[facility] LABORATORYIA [id number] [place] [address] [place] Carboxyhemoglobin (BldV) [Mass fraction] 2.0 % Normal 0.0-2.0 [facility] Comment on above: Order Comment: Speci men Type: VENOUS BLOOD SPECIMENOrdering Facility: [facility] Address: [address] [place] [address] Result Comment: Carb oxyhemoglobin Reference Range for Smokers: 2.0-8.0% Performed By: #### 2 4344-4 ####[facility] LABORATORYCLIA [id number] [place] [address] [place] CO2 (BldV) [Partial pressure] 44 mm[Hg] Normal 42-55 [facility] Comment on above: Order Comment: Speci men Type: VENOUS BLOOD SPECIMENOrdering Facility: [facility] Address: [address] [place] [address] Performed By: #### 2 4344-4 ####[facility] LABORATORYCLIA [id number] [place] [address] [place] CO2 adjusted to patient's actual temperature (BldV) [Partial pressure] 43 mmHg Normal 42-55 [facility] Comment on above: Order Comment: Speci men Type: VENOUS BLOOD SPECIMENOrdering Facility: [facility] Address: [address] [place] [address] Performed By: #### 2 4344-4 ####[facility]ITALIA [id number] [place] [address] [place] Glucose [Mass/Vol] 143 mg/dL High 60-105 [facility] Comment on above: Order Comment: Speci men Type: VENOUS BLOOD SPECIMENOrdering Facility: [facility] Address: [address] [place] [address] Performed By: #### 2 4344-4 ####[facility]ORATORYIA [id number] [place] [address] [place] HCO3 (Bld) [Moles/Vol] 29 mmol/L High 24-28 [facility] Comment on above: Order Comment: Speci men Type: VENOUS BLOOD SPECIMENOrdering Facility: [facility] Address: [address] [place] [address] Performed By: #### 2 4344-4 ####[facility]ORATORYIA [id number] [place] [address] [place] Hematocrit (Bld) [Volume fraction] 38.3 % Normal 36.0-46.0 [facility] Comment on above: Order Comment: Speci men Type: VENOUS BLOOD SPECIMENOrdering Facility: [facility] Address: [address] [place] [address] Performed By: #### 2 4344-4 ####[facility]ITALIA [id number] [place] [address] [place] Hemoglobin (Bld) [Mass/Vol] 12.5 g/dL Normal 11.5-15.5 [facility] Comment on above: Order Comment: Speci men Type: VENOUS BLOOD SPECIMENOrdering Facility: [facility] Address: [address] [place] [address] Performed By: #### 2 4344-4 ####[facility]ITALIA [id number] [place] [address] [place] Lactate [Moles/Vol] 2.6 mmol/L High 0.5-2.2 [facility] Comment on above: Order Comment: Speci men Type: VENOUS BLOOD SPECIMENOrdering Facility: [facility] Address: [address] [place] [address] Performed By: #### 2 4344-4 ####[facility]ITALIA [id number] [place] [address] [place] Methemoglobin (Bld) [Mass fraction] 1.0 % Normal 0.0-1.5 [facility] Comment on above: Order Comment: Speci men Type: VENOUS BLOOD SPECIMENOrdering Facility: [facility] Address: [address] [place] [address] Performed By: #### 2 4344-4 ####[facility]ITALIA [id number] [place] [address] [place] O2 THERAPY NC = Nasal Cannula Normal [facility] Comment on above: Order Comment: Speci men Type: VENOUS BLOOD SPECIMENOrdering Facility: [facility] Address: [address] [place] [address] Performed By: #### 2 4344-4 ####[facility]ORATORYIA [id number] [place] [address] [place] Oxygen (BldV) [Partial pressure] 37 mm[Hg] Normal 35-45 [facility] Comment on above: Order Comment: Speci men Type: VENOUS BLOOD SPECIMENOrdering Facility: [facility] Address: [address] [place] [address] Performed By: #### 2 4344-4 ####[facility] LABORATORYCLIA [id number] [place] [address] [place] Oxygen adjusted to patient's actual temperature (BldV) [Partial pressure] 35 mmHg Normal 35-45 [facility] Comment on above: Order Comment: Speci men Type: VENOUS BLOOD SPECIMENOrdering Facility: [facility] Address: [address] [place] [address] Performed By: #### 2 4344-4 ####[facility]ORATORYIA [id number] [place] [address] [place] Oxygen saturation in Venous blood 68 % Normal 60-85 [facility] Comment on above: Order Comment: Speci men Type: VENOUS BLOOD SPECIMENOrdering Facility: [facility] Address: [address] [place] [address] Performed By: #### 2 4344-4 ####[facility]ORATORYIA [id number] [place] [address] [place] Oxyhemoglobin (BldV) [Mass fraction] 66 % Normal 60-85 [facility] Comment on above: Order Comment: Speci men Type: VENOUS BLOOD SPECIMENOrdering Facility: [facility] Address: [address] [place] [address] Performed By: #### 2 4344-4 ####[facility]ORATORYIA [id number] [place] [address] [place] pH (BldV) 7.43 [pH] High 7.32-7.42 [facility] Comment on above: Order Comment: Speci men Type: VENOUS BLOOD SPECIMENOrdering Facility: [facility] Address: [address] [place] [address] Result Comment: Veno us specimen received in vacutainer. Suitable only for assessment of acid base status. Performed By: #### 2 4344-4 ####[facility]ORATORYIA [id number] [place] [address] [place] pH adjusted to patient's actual temperature (BldV) 7.43 High 7.32-7.42 [facility] Comment on above: Order Comment: Speci men Type: VENOUS BLOOD SPECIMENOrdering Facility: [facility] Address: [address] [place] [address] Performed By: #### 2 4344-4 ####[facility] [id number] [place] [address] [place] Potassium [Moles/Vol] 3.7 mmol/L Normal 3.5-5.0 [facility] Comment on above: Order Comment: Speci men Type: VENOUS BLOOD SPECIMENOrdering Facility: [facility] Address: [address] [place] [address] Performed By: #### 2 4344-4 ####[facility] [id number] [place] [address] [place] Sodium [Moles/Vol] 135 mmol/L Low 136-144 [facility] Comment on above: Order Comment: Speci men Type: VENOUS BLOOD SPECIMENOrdering Facility: [facility] Address: [address] [place] [address] Performed By: #### 2 4344-4 ####[facility]ATORYIA [id number] [place] [address] [place] Base excess Calc (BldV) [Moles/Vol] 3 mmol/L High 0-2 [facility] Comment on above: Order Comment: Speci men Type: VENOUS BLOOD SPECIMENOrdering Facility: [facility] Address: [address] [place] [address] Performed By: #### 2 4344-4 ####[facility] [id number] [place] [address] [place] Body temperature 97.52 [degF] Normal [facility] Comment on above: Order Comment: Speci men Type: VENOUS BLOOD SPECIMENOrdering Facility: [facility] Address: [address] [place] [address] Performed By: #### 2 4344-4 ####[facility] [id number] [place] [address] [place] Calcium.ionized (Bld) [Mass/Vol] 1.02 mmol/L Low 1.08-1.30 [facility] Comment on above: Order Comment: Speci men Type: VENOUS BLOOD SPECIMENOrdering Facility: [facility] Address: [address] [place] [address] Performed By: #### 2 4344-4 ####[facility] [id number] [address] [place] Calcium.ionized adjusted to pH 7.4 (BldA) [Moles/Vol] 1.03 mmol/L Low 1.08-1.30 [facility] Comment on above: Order Comment: Speci men Type: VENOUS BLOOD SPECIMENOrdering Facility: [facility] Address: [address] [place] [address] Performed By: #### 2 4344-4 ####[facility] [id number] [place] [address] [place] Carboxyhemoglobin (BldV) [Mass fraction] 2.8 % High 0.0-2.0 [facility] Comment on above: Order Comment: Speci men Type: VENOUS BLOOD SPECIMENOrdering Facility: [facility] Address: [address] [place] [address] Result Comment: Carb oxyhemoglobin Reference Range for Smokers: 2.0-8.0% Performed By: #### 2 4344-4 ####[facility] [id number] [place] [address] [place] CO2 (BldV) [Partial pressure] 44 mm[Hg] Normal 42-55 [facility] Comment on above: Order Comment: Speci men Type: VENOUS BLOOD SPECIMENOrdering Facility: [facility] Address: [address] [place] [address] Performed By: #### 2 4344-4 ####[facility] [id number] [place] [address] [place] CO2 adjusted to patient's actual temperature (BldV) [Partial pressure] 43 mmHg Normal 42-55 [facility] Comment on above: Order Comment: Speci men Type: VENOUS BLOOD SPECIMENOrdering Facility: [facility] Address: [address] [place] [address] Performed By: #### 2 4344-4 ####[facility] [id number] [place] [address] [place] Glucose [Mass/Vol] 99 mg/dL Normal 60-105 [facility] Comment on above: Order Comment: Speci men Type: VENOUS BLOOD SPECIMENOrdering Facility: [facility] Address: [address] [place] [address] Performed By: #### 2 4344-4 ####[facility] [id number] [place] [address] [place] HCO3 (Bld) [Moles/Vol] 28 mmol/L Normal 24-28 [facility] Comment on above: Order Comment: Speci men Type: VENOUS BLOOD SPECIMENOrdering Facility: [facility] Address: [address] [place] [address] Performed By: #### 2 4344-4 ####[facility] [id number] [place] [address] [place] Hematocrit (Bld) [Volume fraction] 41.6 % Normal 36.0-46.0 [facility] Comment on above: Order Comment: Speci men Type: VENOUS BLOOD SPECIMENOrdering Facility: [facility] Address: [address] [place] [address] Performed By: #### 2 4344-4 ####[facility] [id number] [place] [address] [place] Hemoglobin (Bld) [Mass/Vol] 13.6 g/dL Normal 11.5-15.5 [facility] Comment on above: Order Comment: Speci men Type: VENOUS BLOOD SPECIMENOrdering Facility: [facility] Address: [address] [place] [address] Performed By: #### 2 4344-4 ####[facility] [id number] [place] [address] [place] Lactate [Moles/Vol] 3.1 mmol/L High 0.5-2.2 [facility] Comment on above: Order Comment: Speci men Type: VENOUS BLOOD SPECIMENOrdering Facility: [facility] Address: [address] [place] [address] Performed By: #### 2 4344-4 ####[facility] [id number] [place] [address] [place] Methemoglobin (Bld) [Mass fraction] % Normal 0.0-1.5 [facility] Comment on above: Order Comment: Speci men Type: VENOUS BLOOD SPECIMENOrdering Facility: [facility] Address: [address] [place] [address] Performed By: #### 2 4344-4 ####[facility] [id number] [place] [address] [place] O2 THERAPY NC = Nasal Cannula Normal [facility] Comment on above: Order Comment: Speci men Type: VENOUS BLOOD SPECIMENOrdering Facility: [facility] Address: [address] [place] [address] Performed By: #### 2 4344-4 ####[facility] [id number] [place] [address] [place] Oxygen (BldV) [Partial pressure] 104 mm[Hg] High 35-45 [facility] Comment on above: Order Comment: Speci men Type: VENOUS BLOOD SPECIMENOrdering Facility: [facility] Address: [address] [place] [address] Performed By: #### 2 4344-4 ####[facility] [id number] [place] [address] [place] Oxygen adjusted to patient's actual temperature (BldV) [Partial pressure] Normal [facility] Comment on above: Order Comment: Speci men Type: VENOUS BLOOD SPECIMENOrdering Facility: [facility] Address: [address] [place] [address] Performed By: #### 2 4344-4 ####[facility]ATORYCLIA [id number] [place] [address] [place] Oxygen saturation in Venous blood 98 % High 60-85 [facility] Comment on above: Order Comment: Speci men Type: VENOUS BLOOD SPECIMENOrdering Facility: [facility] Address: [address] [place] [address] Performed By: #### 2 4344-4 ####[facility]ATORYCLIA [id number] [place] [address] [place] Oxyhemoglobin (BldV) [Mass fraction] 96 % High 60-85 [facility] Comment on above: Order Comment: Speci men Type: VENOUS BLOOD SPECIMENOrdering Facility: [facility] Address: [address] [place] [address] Performed By: #### 2 4344-4 ####[facility]ATORYCLIA [id number] [place] [address] [place] pH (BldV) 7.42 [pH] Normal 7.32-7.42 [facility] Comment on above: Order Comment: Speci men Type: VENOUS BLOOD SPECIMENOrdering Facility: [facility] Address: [address] [place] [address] Result Comment: Veno us specimen received in vacutainer. Suitable only for assessment of acid base status. Performed By: #### 2 4344-4 ####[facility]ATORYCLIA [id number] [place] [address] [place] pH adjusted to patient's actual temperature (BldV) 7.43 High 7.32-7.42 [facility] Comment on above: Order Comment: Speci men Type: VENOUS BLOOD SPECIMENOrdering Facility: [facility] Address: [address] [place] [address] Performed By: #### 2 4344-4 ####[facility]ATORYCLIA [id number] [place] [address] [place] Potassium [Moles/Vol] 4.3 mmol/L Normal 3.5-5.0 [facility] Comment on above: Order Comment: Speci men Type: VENOUS BLOOD SPECIMENOrdering Facility: [facility] Address: [address] [place] [address] Performed By: #### 2 4344-4 ####[facility]ATORYCLIA [id number] [place] [address] [place] Sodium [Moles/Vol] 137 mmol/L Normal 136-144 [facility] Comment on above: Order Comment: Speci men Type: VENOUS BLOOD SPECIMENOrdering Facility: [facility] Address: [address] [place] [address] Performed By: #### 2 4344-4 ####[facility] [id number] [place] [address] [place] Magnesium SerPl-mCncon 12-27 Magnesium [Mass/Vol] 2.1 mg/dL Normal 1.7-2.3 [facility] Comment on above: Order Comment: Speci men Type: BLOOD SPECIMENOrdering Facility: [facility] Address: [address] [place] [address] Performed By: #### 1 9123-9, 59533-5 ####[facility] [id number] [place] [address] [place] Phosphate SerPl-mCncon 12-27 Phosphate [Mass/Vol] 4.6 mg/dL Normal 2.7-4.8 [facility] Comment on above: Order Comment: Speci men Type: BLOOD SPECIMENOrdering Facility: [facility] Address: [address] [place] [address] Performed By: #### 1 988-5, 07180-9, 2777-1 ####[facility] [id number] [place] [address] [place] Procalcitonin SerPl-mCncon 0 12-28-2023 Procalcitonin [Mass/Vol] 0.26 ng/mL High <0.09 [facility] Comment on above: Order Comment: Speci men Type: BLOOD SPECIMENOrdering Facility: [facility] Address: [address] [place] [address] Result Comment: For a guided interpretation of test results, please visit the Change in Procalcitonin Calculator, [email or web address]. Performed By: #### 1 988-5, 13050-6, 2777-1 ####[facility]ATORYCLIA [id number] [place] [address] [place] Renal function 2000 [facility] 12-28-2023 Albumin [Mass/Vol] 3.3 g/dL Low 3.9-4.9 [facility] Comment on above: Order Comment: Speci men Type: BLOOD SPECIMENOrdering Facility: [facility] Address: [address] [place] [address] Performed By: #### 1 9123-9, 10732-4 ####[facility]ATORYCLIA [id number] [place] [address] [place] Anion gap [Moles/Vol] 12 mmol/L Normal 8-15 [facility] Comment on above: Order Comment: Speci men Type: BLOOD SPECIMENOrdering Facility: [facility] Address: [address] [place] [address] Performed By: #### 1 9123-9, 51870-2 ####[facility] [id number] [place] [address] [place] Calcium [Mass/Vol] 9.1 mg/dL Normal 8.5-10.2 [facility] Comment on above: Order Comment: Speci men Type: BLOOD SPECIMENOrdering Facility: [facility] Address: [address] [place] [address] Performed By: #### 1 9123-9, 32132-5 ####[facility] [id number] [place] [address] [place] Chloride [Moles/Vol] 97 mmol/L Low 98-107 [facility] Comment on above: Order Comment: Speci men Type: BLOOD SPECIMENOrdering Facility: [facility] Address: [address] [place] [address] Performed By: #### 1 9123-9, 91790-1 ####[facility]ATORYCLIA [id number] [place] [address] [place] CO2 [Moles/Vol] 27 mmol/L Normal 22-30 [facility] Comment on above: Order Comment: Speci men Type: BLOOD SPECIMENOrdering Facility: [facility] Address: [address] [place] [address] Performed By: #### 1 9123-9, 91115-7 ####[facility] [id number] [place] [address] [place] Creatinine [Mass/Vol] 0.79 mg/dL Normal 0.58-0.96 [facility] Comment on above: Order Comment: Speci men Type: BLOOD SPECIMENOrdering Facility: [facility] Address: [address] [place] [address] Performed By: #### 1 9123-9, 20256-0 ####[facility] [id number] [place], [place] [address] [place] [address] Creatinine and Glomerular filtration rate.predicted panel (S/P/Bld) 85 mL/min/1.73m??? Normal >=60 [facility] Comment on above: Order Comment: Speci men Type: BLOOD SPECIMENOrdering Facility: [facility] Address: [address] [place] [address] Result Comment: Tuyet mated Glomerular Filtration Rate (eGFR) is calculated using the 2020 CKD-EPI creatinine equation. This equation utilizes serum creatinine, sex, and age as parameters. The creatinine assay has traceable calibration to isotope dilution-mass spectrometry. Refer to KDIGO guidelines for clinical interpretation. In patients with unstable renal function, e.g. those with acute kidney injury, the eGFR may not accurately reflect actual GFR. Performed By: #### 1 9123-9, 61330-3 ####[facility]IA [id number] [place] [address] [place] Glucose [Mass/Vol] 104 mg/dL High 74-99 [facility] Comment on above: Order Comment: Speci men Type: BLOOD SPECIMENOrdering Facility: [facility] Address: [address] [place] [address] Result Comment: The [place] Diabetes Association (ADA) provides guidance for cutoff values for fasting glucose and random glucose. The ADA defines fasting as no caloric intake for at least 8 hours. Fasting plasma glucose results between 100 to 125 mg/dL indicate increased risk for diabetes (prediabetes).Fasting plasma glucose results greater than or equal to 126 mg/dL meet the criteria for diagnosis of diabetes. In the absence of unequivocal hyperglycemia, results should be confirmed by repeat testing. In a patient with classic symptoms of hyperglycemia or hyperglycemic crisis, random plasma glucose results greater than or equal to 200 mg/dL meet the criteria for diagnosis of diabetes.Reference: Standards of Medical Care in Diabetes 2016, [place] Diabetes Association. Diabetes Care. 2016.39(Suppl 1). Performed By: #### 1 9123-9, 49644-2 ####[facility]IA [id number] [place] [address] [place] Phosphate [Mass/Vol] 4.5 mg/dL Normal 2.7-4.8 [facility] Comment on above: Order Comment: Speci men Type: BLOOD SPECIMENOrdering Facility: [facility] Address: [address] [place] [address] Performed By: #### 1 9123-9, 11366-1 ####[facility]IA [id number] [place] [address] [place] Potassium [Moles/Vol] 4.1 mmol/L Normal 3.7-5.1 [facility] Comment on above: Order Comment: Speci men Type: BLOOD SPECIMENOrdering Facility: [facility] Address: [address] [place] [address] Performed By: #### 1 9123-9, 13636-9 ####[facility] [id number] [place], [place] [address] [place] [address] [place] [facility] Sodium [Moles/Vol] 136 mmol/L Normal 136-144 [facility] Comment on above: Order Comment: Speci men Type: BLOOD SPECIMENOrdering Facility: [facility] Address: [address] [place] [address] Performed By: #### 1 9123-9, 57104-0 ####[facility]ATORYCLIA [id number] [place] [address] [place] Urea nitrogen [Mass/Vol] 17 mg/dL Normal 7-21 [facility] Comment on above: Order Comment: Speci men Type: BLOOD SPECIMENOrdering Facility: [facility] Address: [address] [place] [address] Performed By: #### 1 9123-9, 97335-6 ####[facility]ATORYCLIA [id number] [place] [address] [place] SEPSIS LACTATEon 12-28-2023 Lactate [Moles/Vol] 1.8 mmol/L Normal 0.0-2.0 [facility] Comment on above: Order Comment: Speci men Type: BLOOD SPECIMENOrdering Facility: [facility] Address: [address] [place] [address] Performed By: #### S LACT ####[facility]ORYCLIA [id number] [address] [place] THERAPY NTon 12-28-2023 THERAPY NT Normal [facility] Bacteria Bld Culton 12-27-19 24 Bacteria identified Cx Nom (Bld) CULTURE, BLOOD: No growth 5 days Normal [facility] Comment on above: Performed By: #### 6 00-7 ####[facility] LABCLIA [id number] [address] [place] Bacteria identified Cx Nom (Bld) CULTURE, BLOOD: No growth 5 days Normal [facility] Comment on above: Performed By: #### 6 00-7 ####[facility] LABCLIA [id number] [place] [address] [facility] [place] CASE MANAGEMon 12-27-2023 CASE MANAGEM Normal [facility] CBC panel Auto (Bld)on 12-26 Erythrocyte distribution width (RBC) [Ratio] 15.9 % High 11.5-15.0 [facility] Comment on above: Order Comment: Speci men Type: BLOOD SPECIMENOrdering Facility: [facility] Address: [address] [place] [address] Performed By: #### 5 8410-2 ####[facility]ATORYCLIA [id number] [address] Hematocrit (Bld) [Volume fraction] 38.6 % Normal 36.0-46.0 [facility] Comment on above: Order Comment: Speci men Type: BLOOD SPECIMENOrdering Facility: [facility] Address: [address] [place] [address] Performed By: #### 5 8410-2 ####[facility]ORYCLIA [id number] [address] [place] Hemoglobin (Bld) [Mass/Vol] 12.7 g/dL Normal 11.5-15.5 [facility] Comment on above: Order Comment: Speci men Type: BLOOD SPECIMENOrdering Facility: [facility] Address: [address] [place] [address] Performed By: #### 5 8410-2 ####[facility]ATORYCLIA [id number] [place] [id number] [place] MCH (RBC) [Entitic mass] 27.2 pg Normal 26.0-34.0 [facility] Comment on above: Order Comment: Speci men Type: BLOOD SPECIMENOrdering Facility: [facility] Address: [address] [place] [address] Performed By: #### 5 8410-2 ####[facility] [id number] [place] [address] [place] MCHC (RBC) [Mass/Vol] 32.9 g/dL Normal 30.5-36.0 [facility] Comment on above: Order Comment: Speci men Type: BLOOD SPECIMENOrdering Facility: [facility] Address: [address] [place] [address] Performed By: #### 5 8410-2 ####[facility]ITALIA [id number] [place] [address] [place] MCV (RBC) [Entitic vol] 82.7 fL Normal 80.0-100.0 [facility] Comment on above: Order Comment: Speci men Type: BLOOD SPECIMENOrdering Facility: [facility] Address: [address] [place] [address] Performed By: #### 5 8410-2 ####[facility]ITALIA [id number] [place] [address] [place] Nucleated RBC (Bld) [#/Vol] 10*3/uL Normal <0.01 [facility] Comment on above: Order Comment: Speci men Type: BLOOD SPECIMENOrdering Facility: [facility] Address: [address] [place] [address] Performed By: #### 5 8410-2 ####[facility]ITALIA [id number] [place] [id number] [place] Platelet mean volume (Bld) [Entitic vol] 9.3 fL Normal 9.0-12.7 [facility] Comment on above: Order Comment: Speci men Type: BLOOD SPECIMENOrdering Facility: [facility] Address: [address] [place] [address] Performed By: #### 5 8410-2 ####[facility] [id number] [place] [address] [place] Platelets (Bld) [#/Vol] 290 10*3/uL Normal 150-400 [facility] Comment on above: Order Comment: Speci men Type: BLOOD SPECIMENOrdering Facility: [facility] Address: [address] [place] [address] Performed By: #### 5 8410-2 ####[facility]ORYIA [id number] [place], [place] [address] [place] [address] [place] RBC (Bld) [#/Vol] 4.67 10*6/uL Normal 3.90-5.20 [facility] Comment on above: Order Comment: Speci men Type: BLOOD SPECIMENOrdering Facility: [facility] Address: [address] [place] [address] Performed By: #### 5 8410-2 ####[facility]ORATORYCLIA [id number] [place] [address] [place] WBC (Bld) [#/Vol] 14.30 10*3/uL High 3.70-11.00 [facility] Comment on above: Order Comment: Speci men Type: BLOOD SPECIMENOrdering Facility: [facility] Address: [address] [place] [address] Performed By: #### 5 8410-2 ####[facility]ORATORYCLIA [id number] [facility] [id number] [facility] CONSULT PROGon 12-27-2023 CONSULT PROG Normal [facility] CONSULT PROG Normal [facility] ECG COMPLETEon 12-27-2023 ECG COMPLETE Normal [facility] Gas and Carbon monoxide pane l (BldV)on 12-27-2023 Base excess Calc (BldV) [Moles/Vol] 4 mmol/L High 0-2 [facility] Comment on above: Order Comment: Speci men Type: VENOUS BLOOD SPECIMENOrdering Facility: [facility] Address: [address] [place] [address] Performed By: #### 2 4344-4 ####[facility]ORATORYCLIA [id number] [place] [address] [place] Body temperature 98.24 [degF] Normal [facility] Comment on above: Order Comment: Speci men Type: VENOUS BLOOD SPECIMENOrdering Facility: [facility] Address: [address] [place] [address] Performed By: #### 2 4344-4 ####[facility]ORYIA [id number] [place] [address] [place] Calcium.ionized (Bld) [Mass/Vol] 1.09 mmol/L Normal 1.08-1.30 [facility] Comment on above: Order Comment: Speci men Type: VENOUS BLOOD SPECIMENOrdering Facility: [facility] Address: [address] [place] [address] Performed By: #### 2 4344-4 ####[facility]ATORYCLIA [id number] [place] [address] [place] Calcium.ionized adjusted to pH 7.4 (BldA) [Moles/Vol] 1.11 mmol/L Normal 1.08-1.30 [facility] Comment on above: Order Comment: Speci men Type: VENOUS BLOOD SPECIMENOrdering Facility: [facility] Address: [address] [place] [address] Performed By: #### 2 4344-4 ####[facility]ORATORYCLIA [id number] [place] [id number] [place] Carboxyhemoglobin (BldV) [Mass fraction] 1.2 % Normal 0.0-2.0 [facility] Comment on above: Order Comment: Speci men Type: VENOUS BLOOD SPECIMENOrdering Facility: [facility] Address: [address] [place] [address] Result Comment: Carb oxyhemoglobin Reference Range for Smokers: 2.0-8.0% Performed By: #### 2 4344-4 ####[facility]ORATORYCLIA [id number] [place] [address] [place] CO2 (BldV) [Partial pressure] 45 mm[Hg] Normal 42-55 [facility] Comment on above: Order Comment: Speci men Type: VENOUS BLOOD SPECIMENOrdering Facility: [facility] Address: [address] [place] [address] Performed By: #### 2 4344-4 ####[facility]ORATORYCLIA [id number] [place] [address] [place] CO2 adjusted to patient's actual temperature (BldV) [Partial pressure] 44 mmHg Normal 42-55 [facility] Comment on above: Order Comment: Speci men Type: VENOUS BLOOD SPECIMENOrdering Facility: [facility] Address: [address] [place] [address] Performed By: #### 2 4344-4 ####[facility] LABORATORYIA [id number] [place] [address] [place] Glucose [Mass/Vol] 137 mg/dL High 60-105 [facility] Comment on above: Order Comment: Speci men Type: VENOUS BLOOD SPECIMENOrdering Facility: [facility] Address: [address] [place] [address] Performed By: #### 2 4344-4 ####[facility] [id number] [place] [address] [place] HCO3 (Bld) [Moles/Vol] 29 mmol/L High 24-28 [facility] Comment on above: Order Comment: Speci men Type: VENOUS BLOOD SPECIMENOrdering Facility: [facility] Address: [address] [place] [address] Performed By: #### 2 4344-4 ####[facility] [id number] [place] [address] [place] Hematocrit (Bld) [Volume fraction] 42.0 % Normal 36.0-46.0 [facility] Comment on above: Order Comment: Speci men Type: VENOUS BLOOD SPECIMENOrdering Facility: [facility] Address: [address] [place] [address] Performed By: #### 2 4344-4 ####[facility]ORY[facility] [id number] [place] [address] [place] Hemoglobin (Bld) [Mass/Vol] 13.7 g/dL Normal 11.5-15.5 [facility] Comment on above: Order Comment: Speci men Type: VENOUS BLOOD SPECIMENOrdering Facility: [facility] Address: [address] [place] [address] Performed By: #### 2 4344-4 ####[facility] [id number] [place] [address] [place] Lactate [Moles/Vol] 2.5 mmol/L High 0.5-2.2 [facility] Comment on above: Order Comment: Speci men Type: VENOUS BLOOD SPECIMENOrdering Facility: [facility] Address: [address] [place] [address] Performed By: #### 2 4344-4 ####[facility] [id number] [place] [address] [facility] [place] Methemoglobin (Bld) [Mass fraction] % Normal 0.0-1.5 [facility] Comment on above: Order Comment: Speci men Type: VENOUS BLOOD SPECIMENOrdering Facility: [facility] Address: [address] [place] [address] Performed By: #### 2 4344-4 ####[facility] [id number] [place] [address] [facility] O2 THERAPY NC = Nasal Cannula Normal [facility] Comment on above: Order Comment: Speci men Type: VENOUS BLOOD SPECIMENOrdering Facility: [facility] Address: [address] [place] [address] Performed By: #### 2 4344-4 ####[facility] [id number] [place] [address] [facility] [place] Oxygen (BldV) [Partial pressure] 41 mm[Hg] Normal 35-45 [facility] Comment on above: Order Comment: Speci men Type: VENOUS BLOOD SPECIMENOrdering Facility: [facility] Address: [address] [place] [address] Performed By: #### 2 4344-4 ####[facility] [id number] [place] [address] [facility] [place] Oxygen adjusted to patient's actual temperature (BldV) [Partial pressure] 40 mmHg Normal 35-45 [facility] Comment on above: Order Comment: Speci men Type: VENOUS BLOOD SPECIMENOrdering Facility: [facility] Address: [address] [place] [address] Performed By: #### 2 4344-4 ####[facility]ATORYCLIA [id number] [place] [address] [place] Oxygen saturation in Venous blood 74 % Normal 60-85 [facility] Comment on above: Order Comment: Speci men Type: VENOUS BLOOD SPECIMENOrdering Facility: [facility] Address: [address] [place] [address] Performed By: #### 2 4344-4 ####[facility] [id number] [place] [address] [place] Oxyhemoglobin (BldV) [Mass fraction] 73 % Normal 60-85 [facility] Comment on above: Order Comment: Speci men Type: VENOUS BLOOD SPECIMENOrdering Facility: [facility] Address: [address] [place] [address] Performed By: #### 2 4344-4 ####[facility] [id number] [place] [address] [place] pH (BldV) 7.43 [pH] High 7.32-7.42 [facility] Comment on above: Order Comment: Speci men Type: VENOUS BLOOD SPECIMENOrdering Facility: [facility] Address: [address] [place] [address] Result Comment: Veno us specimen received in vacutainer. Suitable only for assessment of acid base status. Performed By: #### 2 4344-4 ####[facility] [id number] [place] [address] [place] pH adjusted to patient's actual temperature (BldV) 7.43 High 7.32-7.42 [facility] Comment on above: Order Comment: Speci men Type: VENOUS BLOOD SPECIMENOrdering Facility: [facility] Address: [address] [place] [address] Performed By: #### 2 4344-4 ####[facility] [id number] [place] [address] [place] Potassium [Moles/Vol] 3.9 mmol/L Normal 3.5-5.0 [facility] Comment on above: Order Comment: Speci men Type: VENOUS BLOOD SPECIMENOrdering Facility: [facility] Address: [address] [place] [address] Performed By: #### 2 4344-4 ####[facility] [id number] [place] [address] [place] Sodium [Moles/Vol] 139 mmol/L Normal 136-144 [facility] Comment on above: Order Comment: Speci men Type: VENOUS BLOOD SPECIMENOrdering Facility: [facility] Address: [address] [place] [address] Performed By: #### 2 4344-4 ####[facility] [id number] [place] [id number] [place] Base excess Calc (BldV) [Moles/Vol] 3 mmol/L High 0-2 [facility] Comment on above: Order Comment: Speci men Type: VENOUS BLOOD SPECIMENOrdering Facility: [facility] Address: [address] [place] [address] Performed By: #### 2 4344-4 ####[facility] [id number] [place] [address] [place] Body temperature 98.6 [degF] Normal [facility] Comment on above: Order Comment: Speci men Type: VENOUS BLOOD SPECIMENOrdering Facility: [facility] Address: [address] [place] [address] Performed By: #### 2 4344-4 ####[facility] [id number] [place] [address] [place] Calcium.ionized (Bld) [Mass/Vol] 1.10 mmol/L Normal 1.08-1.30 [facility] Comment on above: Order Comment: Speci men Type: VENOUS BLOOD SPECIMENOrdering Facility: [facility] Address: [address] [place] [address] Performed By: #### 2 4344-4 ####[facility] [id number] [place] [address] [place] Calcium.ionized adjusted to pH 7.4 (BldA) [Moles/Vol] 1.10 mmol/L Normal 1.08-1.30 [facility] Comment on above: Order Comment: Speci men Type: VENOUS BLOOD SPECIMENOrdering Facility: [facility] Address: [address] [place] [address] Performed By: #### 2 4344-4 ####[facility]ATORYCLIA [id number] [place] [address] [place] Carboxyhemoglobin (BldV) [Mass fraction] 1.9 % Normal 0.0-2.0 [facility] Comment on above: Order Comment: Speci men Type: VENOUS BLOOD SPECIMENOrdering Facility: [facility] Address: [address] [place] [address] Result Comment: Carb oxyhemoglobin Reference Range for Smokers: 2.0-8.0% Performed By: #### 2 4344-4 ####[facility] [id number] [place] [address] [place] CO2 (BldV) [Partial pressure] 45 mm[Hg] Normal 42-55 [facility] Comment on above: Order Comment: Speci men Type: VENOUS BLOOD SPECIMENOrdering Facility: [facility] Address: [address] [place] [address] Performed By: #### 2 4344-4 ####[facility] [id number] [place] [address] [place] Glucose [Mass/Vol] 115 mg/dL High 60-105 [facility] Comment on above: Order Comment: Speci men Type: VENOUS BLOOD SPECIMENOrdering Facility: [facility] Address: [address] [place] [address] Performed By: #### 2 4344-4 ####[facility] [id number] [place] [address] [place] HCO3 (Bld) [Moles/Vol] 28 mmol/L Normal 24-28 [facility] Comment on above: Order Comment: Speci men Type: VENOUS BLOOD SPECIMENOrdering Facility: [facility] Address: [address] [place] [address] Performed By: #### 2 4344-4 ####[facility] [id number] [place] [address] [place] Hematocrit (Bld) [Volume fraction] 44.1 % Normal 36.0-46.0 [facility] Comment on above: Order Comment: Speci men Type: VENOUS BLOOD SPECIMENOrdering Facility: [facility] Address: [address] [place] [address] Performed By: #### 2 4344-4 ####[facility] [id number] [place] [address] [place] Hemoglobin (Bld) [Mass/Vol] 14.4 g/dL Normal 11.5-15.5 [facility] Comment on above: Order Comment: Speci men Type: VENOUS BLOOD SPECIMENOrdering Facility: [facility] Address: [address] [place] [address] Performed By: #### 2 4344-4 ####[facility] [id number] [address] [place] Lactate [Moles/Vol] 2.5 mmol/L High 0.5-2.2 [facility] Comment on above: Order Comment: Speci men Type: VENOUS BLOOD SPECIMENOrdering Facility: [facility] Address: [address] [place] [address] Performed By: #### 2 4344-4 ####[facility] [id number] [place] [address] [place] Methemoglobin (Bld) [Mass fraction] % Normal 0.0-1.5 [facility] Comment on above: Order Comment: Speci men Type: VENOUS BLOOD SPECIMENOrdering Facility: [facility] Address: [address] [place] [address] Performed By: #### 2 4344-4 ####[facility] [id number] [place] [address] [place] O2 THERAPY NC = Nasal Cannula Normal [facility] Comment on above: Order Comment: Speci men Type: VENOUS BLOOD SPECIMENOrdering Facility: [facility] Address: [address] [place] [address] Performed By: #### 2 4344-4 ####[facility] [id number] [place] [address] [place] Oxygen (BldV) [Partial pressure] 63 mm[Hg] High 35-45 [facility] Comment on above: Order Comment: Speci men Type: VENOUS BLOOD SPECIMENOrdering Facility: [facility] Address: [address] [place] [address] Performed By: #### 2 4344-4 ####[facility] [id number] [place] [address] [place] Oxygen saturation in Venous blood 90 % High 60-85 [facility] Comment on above: Order Comment: Speci men Type: VENOUS BLOOD SPECIMENOrdering Facility: [facility] Address: [address] [place] [address] Performed By: #### 2 4344-4 ####[facility] [id number] [place] [address] [place] Oxyhemoglobin (BldV) [Mass fraction] 89 % High 60-85 [facility] Comment on above: Order Comment: Speci men Type: VENOUS BLOOD SPECIMENOrdering Facility: [facility] Address: [address] [place] [address] Performed By: #### 2 4344-4 ####[facility] [id number] [place] [address] [place] pH (BldV) 7.41 [pH] Normal 7.32-7.42 [facility] Comment on above: Order Comment: Speci men Type: VENOUS BLOOD SPECIMENOrdering Facility: [facility] Address: [address] [place] [address] Result Comment: Veno us specimen received in vacutainer. Suitable only for assessment of acid base status. Performed By: #### 2 4344-4 ####[facility] [id number] [place] [address] [place] Potassium [Moles/Vol] 4.0 mmol/L Normal 3.5-5.0 [facility] Comment on above: Order Comment: Speci men Type: VENOUS BLOOD SPECIMENOrdering Facility: [facility] Address: [address] [place], [place] [address] Performed By: #### 2 4344-4 ####[facility]ATORYCLIA [id number] [place] [address] [place] Sodium [Moles/Vol] 137 mmol/L Normal 136-144 [facility] Comment on above: Order Comment: Speci men Type: VENOUS BLOOD SPECIMENOrdering Facility: [facility] Address: [address] [place] [address] Performed By: #### 2 4344-4 ####[facility]ATORYCLIA [id number] [place] [address] [place] Magnesium SerPl-ncon 12-26 Magnesium [Mass/Vol] 1.9 mg/dL Normal 1.7-2.3 [facility] Comment on above: Order Comment: Speci men Type: BLOOD SPECIMENOrdering Facility: [facility] Address: [address] [place], [place] [address] Performed By: #### 1 9123-9, 13026-8 ####[facility]ORYCLIA [id number] [place] [address] [place] NURSING PROGon 12-27-2023 NURSING PROG Normal [facility] NUTRITIONon 12-27-2023 NUTRITION Normal [facility] PT EDon 12-27-2023 PT ED [facility] Renal function 2000 panelon 12-27-2023 Albumin [Mass/Vol] 3.5 g/dL Low 3.9-4.9 [facility] Comment on above: Order Comment: Speci men Type: BLOOD SPECIMENOrdering Facility: [facility] Address: [address] [place], [place] [address] Performed By: #### 1 9123-9, 46153-6 ####[facility]ATORYCLIA [id number] [place] [address] [place] Anion gap [Moles/Vol] 13 mmol/L Normal 8-15 [facility] Comment on above: Order Comment: Speci men Type: BLOOD SPECIMENOrdering Facility: [facility] Address: [address] [place] [address] Performed By: #### 1 9123-9, 34214-4 ####[facility]ORYCLIA [id number] [place] [address] [place] Calcium [Mass/Vol] 8.8 mg/dL Normal 8.5-10.2 [facility] Comment on above: Order Comment: Speci men Type: BLOOD SPECIMENOrdering Facility: [facility] Address: [address] [place] [address] Performed By: #### 1 9123-9, 06079-6 ####[facility]ORYCLIA [id number] [place] [address] [place] Chloride [Moles/Vol] 97 mmol/L Low 98-107 [facility] Comment on above: Order Comment: Speci men Type: BLOOD SPECIMENOrdering Facility: [facility] Address: [address] [place] [address] Performed By: #### 1 9123-9, 24950-1 ####[facility]ORYCLIA [id number] [place] [address] [place] CO2 [Moles/Vol] 24 mmol/L Normal 22-30 [facility] Comment on above: Order Comment: Speci men Type: BLOOD SPECIMENOrdering Facility: [facility] Address: [address] [place] [address] Performed By: #### 1 9123-9, 39476-1 ####[facility]ATORYCLIA [id number] [place] [address] [place] Creatinine [Mass/Vol] 0.77 mg/dL Normal 0.58-0.96 [facility] Comment on above: Order Comment: Speci men Type: BLOOD SPECIMENOrdering Facility: [facility] Address: [address] [place] [address] Performed By: #### 1 9123-9, 17961-2 ####[facility]ATORYCLIA [id number] [place] [id number] [place] Creatinine and Glomerular filtration rate.predicted panel (S/P/Bld) 88 mL/min/1.73m??? Normal >=60 [facility] Comment on above: Order Comment: Nicolle phipps Type: BLOOD SPECIMENOrdering Facility: [facility] Address: [address] [place] [address] Result Comment: Tuyet mated Glomerular Filtration Rate (eGFR) is calculated using the 2020 CKD-EPI creatinine equation. This equation utilizes serum creatinine, sex, and age as parameters. The creatinine assay has traceable calibration to isotope dilution-mass spectrometry. Refer to KDIGO guidelines for clinical interpretation. In patients with unstable renal function, e.g. those with acute kidney injury, the eGFR may not accurately reflect actual GFR. Performed By: #### 1 9123-9, 46497-0 ####[facility]ATORYCLIA [id number] [place] [address] [place] Glucose [Mass/Vol] 137 mg/dL High 74-99 [facility] Comment on above: Order Comment: Nicolle phipps Type: BLOOD SPECIMENOrdering Facility: [facility] Address: [address] [place] [address] Result Comment: The [place] Diabetes Association (ADA) provides guidance for cutoff values for fasting glucose and random glucose. The ADA defines fasting as no caloric intake for at least 8 hours. Fasting plasma glucose results between 100 to 125 mg/dL indicate increased risk for diabetes (prediabetes).Fasting plasma glucose results greater than or equal to 126 mg/dL meet the criteria for diagnosis of diabetes. In the absence of unequivocal hyperglycemia, results should be confirmed by repeat testing. In a patient with classic symptoms of hyperglycemia or hyperglycemic crisis, random plasma glucose results greater than or equal to 200 mg/dL meet the criteria for diagnosis of diabetes.Reference: Standards of Medical Care in Diabetes 2016, Citizen [place] Diabetes Association. Diabetes Care. 2016.39(Suppl 1). Performed By: #### 1 9123-9, 35888-9 ####[facility]ATORYCLIA [id number] [place] [address] [place] Phosphate [Mass/Vol] 4.4 mg/dL Normal 2.7-4.8 [facility] Comment on above: Order Comment: Speci men Type: BLOOD SPECIMENOrdering Facility: [facility] Address: [address] [place] [address] Performed By: #### 1 9123-9, 77269-8 ####[facility] [id number] [place] [address] [place] Potassium [Moles/Vol] 4.1 mmol/L Normal 3.7-5.1 [facility] Comment on above: Order Comment: Speci men Type: BLOOD SPECIMENOrdering Facility: [facility] Address: [address] [place] [address] Performed By: #### 1 9123-9, 93486-6 ####[facility] [id number] [place] [address] [place] Sodium [Moles/Vol] 134 mmol/L Low 136-144 [facility] Comment on above: Order Comment: Speci men Type: BLOOD SPECIMENOrdering Facility: [facility] Address: [address] [place] [address] Performed By: #### 1 9123-9, 77672-4 ####[facility] [id number] [place] [address] [place] Urea nitrogen [Mass/Vol] 26 mg/dL High 7-21 [facility] Comment on above: Order Comment: Speci men Type: BLOOD SPECIMENOrdering Facility: [facility] Address: [address] [place] [address] Performed By: #### 1 9123-9, 45933-5 ####[facility] [id number] [place] [address] [place] SEPSIS LACTATE W/ REFLEX (IN ITIAL)on 12-27-2023 Lactate [Moles/Vol] 1.6 mmol/L Normal 0.0-2.0 [facility] Comment on above: Order Comment: Speci men Type: BLOOD SPECIMENOrdering Facility: [facility] Address: [address] [place] [address] Performed By: #### S LACTR ####[facility]ITALIA [id number] [place] [address] [place] STAPHYLOCOCCUS AUREUS AND MR SA SCREEN, PCR, NASALon 12-27-2023 S. aureus and MRSA panel HENRRY+probe (Nose) Not detected Normal Not Detected [facility] Comment on above: Order Comment: Speci men Type: SWABOrdering Facility: [facility] Address: [address] [place] [address] Performed By: #### S APCR ####[facility] LABCLIA [id number] [address] [place] Urinalysis complete panel (U )on 12-27-2023 Bilirubin Ql (U) Negative Normal Negative [facility] Comment on above: Order Comment: Speci men Type: URINE SPECIMENOrdering Facility: [facility] Address: [address] [place] [address] Performed By: #### 2 4356-8 ####[facility] [id number] [address] [place] Clarity (Unsp spec) Turbid Abnormal Clear [facility] Comment on above: Order Comment: Speci men Type: URINE SPECIMENOrdering Facility: [facility] Address: [address] [place] [address] Performed By: #### 2 4356-8 ####[facility]IA [id number] [place] [address] [place] Color (U) Colorless Normal yellow [facility] Comment on above: Order Comment: Speci men Type: URINE SPECIMENOrdering Facility: [facility] Address: [address] [place] [address] Performed By: #### 2 4356-8 ####[facility] LABORATORYIA [id number] [address] Epithelial cells LM.HPF (Urine sed) [#/Area] Few Normal [facility] Comment on above: Order Comment: Speci men Type: URINE SPECIMENOrdering Facility: [facility] Address: [address] [place] [address] Performed By: #### 2 4356-8 ####[facility]ORYIA [id number] [address] [place] Glucose Test strip (U) [Mass/Vol] Negative Normal Trace, Negative [facility] Comment on above: Order Comment: Speci men Type: URINE SPECIMENOrdering Facility: [facility] Address: [address] [place] [address] Performed By: #### 2 4356-8 ####[facility] [id number] [address] Hemoglobin Ql (U) Negative Normal Negative, Trace [facility] Comment on above: Order Comment: Speci men Type: URINE SPECIMENOrdering Facility: [facility] Address: [address] [place] [address] Performed By: #### 2 4356-8 ####[facility] [id number] [address] Ketones Ql (U) Negative Normal Negative, Trace [facility] Comment on above: Order Comment: Speci men Type: URINE SPECIMENOrdering Facility: [facility] Address: [address] [place] [address] Performed By: #### 2 4356-8 ####[facility]ATORYIA [id number] [place] [address] [place] Leukocyte esterase Test strip Ql (U) Negative Normal Negative, 25 Ian/uL [facility] Comment on above: Order Comment: Speci men Type: URINE SPECIMENOrdering Facility: [facility] Address: [address] [place] [address] Performed By: #### 2 4356-8 ####[facility]ORYIA [id number] [place] [address] [place] Nitrite Ql (U) Negative Normal Negative [facility] Comment on above: Order Comment: Speci men Type: URINE SPECIMENOrdering Facility: [facility] Address: [address] [place] [address] Performed By: #### 2 4356-8 ####[facility] [id number] [place] [address] [place] pH (U) 7.5 [pH] Normal 5.0-8.0 [facility] Comment on above: Order Comment: Speci men Type: URINE SPECIMENOrdering Facility: [facility] Address: [address] [place] [address] Performed By: #### 2 4356-8 ####[facility] [id number] [place] [address] [place] Protein (U) [Mass/Vol] Negative Normal Trace , Negative [facility] Comment on above: Order Comment: Speci men Type: URINE SPECIMENOrdering Facility: [facility] Address: [address] [place] [address] Performed By: #### 2 4356-8 ####[facility] [id number] [place] [address] [place] RBC LM.HPF (Urine sed) [#/Area] 0-3 /HPF Normal 0-3 /HPF [facility] Comment on above: Order Comment: Speci men Type: URINE SPECIMENOrdering Facility: [facility] Address: [address] [place] [address] Performed By: #### 2 4356-8 ####[facility]PITALIA [id number] [place] [address] [place] Specific gravity (U) [Rel density] 1.010 Normal 1.005-1.030 [facility] Comment on above: Order Comment: Speci men Type: URINE SPECIMENOrdering Facility: [facility] Address: [address] [place] [address] Performed By: #### 2 4356-8 ####[facility] [id number] [place] [address] [place] Urobilinogen Ql (U) Normal Normal Normal [facility] Comment on above: Order Comment: Speci men Type: URINE SPECIMENOrdering Facility: [facility] Address: [address] [place] [address] Performed By: #### 2 4356-8 ####[facility] LABORATORYIA [id number] [place] [address] [place] WBC LM.HPF (Urine sed) [#/Area] 0-5 /HPF Normal 0-5 /HPF [facility] Comment on above: Order Comment: Speci men Type: URINE SPECIMENOrdering Facility: [facility] Address: [address] [place] [address] Performed By: #### 2 4356-8 ####[facility] [id number] [place] [address] [place] XR ABDOMEN 1V SUPINEon 12-26 XR ABDOMEN 1V SUPINE Normal [facility] XR CHEST 1V FRONTAL PORTon 0 12-27-2023 XR CHEST 1V FRONTAL PORT Normal [facility] CBC panel Auto (Bld)on 12-25 Erythrocyte distribution width (RBC) [Ratio] 15.8 % High 11.5-15.0 [facility] Comment on above: Order Comment: Speci men Type: BLOOD SPECIMENOrdering Facility: [facility] Address: [address] [place] [address] Performed By: #### 5 8410-2 ####[facility] [id number] [place] [address] [place] Hematocrit (Bld) [Volume fraction] 34.4 % Low 36.0-46.0 [facility] Comment on above: Order Comment: Speci men Type: BLOOD SPECIMENOrdering Facility: [facility] Address: [address] [place] [address] Performed By: #### 5 8410-2 ####[facility]ATORYIA [id number] [place] [address] [place] Hemoglobin (Bld) [Mass/Vol] 11.8 g/dL Normal 11.5-15.5 [facility] Comment on above: Order Comment: Speci men Type: BLOOD SPECIMENOrdering Facility: [facility] Address: [address] [place] [address] Performed By: #### 5 8410-2 ####[facility]ORATORYIA [id number] [address] OF [facility] MCH (RBC) [Entitic mass] 27.7 pg Normal 26.0-34.0 [facility] Comment on above: Order Comment: Speci men Type: BLOOD SPECIMENOrdering Facility: [facility] Address: [address] [place] [address] Performed By: #### 5 8410-2 ####[facility] [id number] [address] [place] MCHC (RBC) [Mass/Vol] 34.3 g/dL Normal 30.5-36.0 [facility] Comment on above: Order Comment: Speci men Type: BLOOD SPECIMENOrdering Facility: [facility] Address: [address] [place] [address] Performed By: #### 5 8410-2 ####[facility] [id number] [address] [place] MCV (RBC) [Entitic vol] 80.8 fL Normal 80.0-100.0 [facility] Comment on above: Order Comment: Speci men Type: BLOOD SPECIMENOrdering Facility: [facility] Address: [address] [place] [address] Performed By: #### 5 8410-2 ####[facility] [id number] [address] [place] Nucleated RBC (Bld) [#/Vol] 10*3/uL Normal <0.01 [facility] Comment on above: Order Comment: Speci men Type: BLOOD SPECIMENOrdering Facility: [facility] Address: [address] [place] [address] Performed By: #### 5 8410-2 ####[facility] [id number] [place] [address] [place] Platelet mean volume (Bld) [Entitic vol] 9.7 fL Normal 9.0-12.7 [facility] Comment on above: Order Comment: Speci men Type: BLOOD SPECIMENOrdering Facility: [facility] Address: [address] [place] [address] Performed By: #### 5 8410-2 ####[facility] [id number] [place] [address] [place] Platelets (Bld) [#/Vol] 275 10*3/uL Normal 150-400 [facility] Comment on above: Order Comment: Speci men Type: BLOOD SPECIMENOrdering Facility: [facility] Address: [address] [place] [address] Performed By: #### 5 8410-2 ####[facility] [id number] [place] [address] [place] RBC (Bld) [#/Vol] 4.26 10*6/uL Normal 3.90-5.20 [facility] Comment on above: Order Comment: Speci men Type: BLOOD SPECIMENOrdering Facility: [facility] Address: [address] [place] [address] Performed By: #### 5 8410-2 ####[facility] [id number] [place] [address] [place] WBC (Bld) [#/Vol] 7.25 10*3/uL Normal 3.70-11.00 [facility] Comment on above: Order Comment: Speci men Type: BLOOD SPECIMENOrdering Facility: [facility] Address: [address] [place] [address] Performed By: #### 5 8410-2 ####[facility] [id number] [place] [address] [place] Magnesium [facility] Hospitalstefan 12-25 Magnesium [Mass/Vol] 1.9 mg/dL Normal 1.7-2.3 [facility] Comment on above: Order Comment: Speci men Type: BLOOD SPECIMENOrdering Facility: [facility] Address: [address] [place] [address] Performed By: #### 1 9123-9, 92380-7, 2578 ####[facility] LABORATORYCLIA [id number] [place] [address] [facility] NURSING PROGon 12-26-2023 NURSING PROG Normal [facility] Renal function 2000 panelon 12-26-2023 Albumin [Mass/Vol] 3.3 g/dL Low 3.9-4.9 [facility] Comment on above: Order Comment: Speci men Type: BLOOD SPECIMENOrdering Facility: [facility] Address: [address] [place] [address] Performed By: #### 1 9123-9, 55183-0, 8 ####[facility] LABORATORYCLIA [id number] [place] [address] [place] Anion gap [Moles/Vol] 12 mmol/L Normal 8-15 [facility] Comment on above: Order Comment: Speci men Type: BLOOD SPECIMENOrdering Facility: [facility] Address: [address] [place] [address] Performed By: #### 1 9123-9, 33728-8, 8 ####[facility] LABORATORYCLIA [id number] [place] [address] [place] Calcium [Mass/Vol] 8.5 mg/dL Normal 8.5-10.2 [facility] Comment on above: Order Comment: Speci men Type: BLOOD SPECIMENOrdering Facility: [facility] Address: [address] [place] [address] Performed By: #### 1 9123-9, 19056-7, 257-8 ####[facility] LABORATORYCLIA [id number] [place] [address] [place] Chloride [Moles/Vol] 100 mmol/L Normal 98-107 [facility] Comment on above: Order Comment: Speci men Type: BLOOD SPECIMENOrdering Facility: [facility] Address: [address] [place] [address] Performed By: #### 1 9123-9, 22335-7, 2570-12 ####[facility] LABORATORYCLIA [id number] [place] [address] [place] CO2 [Moles/Vol] 25 mmol/L Normal 22-30 [facility] Comment on above: Order Comment: Speci men Type: BLOOD SPECIMENOrdering Facility: [facility] Address: [address] [place] [address] Performed By: #### 1 9123-9, 68110-5, 2570-12 ####[facility] LABORATORYCLIA [id number] [place] [address] [place] Creatinine [Mass/Vol] 0.64 mg/dL Normal 0.58-0.96 [facility] Comment on above: Order Comment: Speci men Type: BLOOD SPECIMENOrdering Facility: [facility] Address: [address] [place] [address] Performed By: #### 1 9123-9, 84701-5, 2570-12 ####[facility] LABORATORYCLIA [id number] [place] [address] [facility] Creatinine and Glomerular filtration rate.predicted panel (S/P/Bld) 101 mL/min/1.73m??? Normal >=60 [facility] Comment on above: Order Comment: Speci men Type: BLOOD SPECIMENOrdering Facility: [facility] Address: [address] [place], [place] [address] Result Comment: Tuyet mated Glomerular Filtration Rate (eGFR) is calculated using the 2020 CKD-EPI creatinine equation. This equation utilizes serum creatinine, sex, and age as parameters. The creatinine assay has traceable calibration to isotope dilution-mass spectrometry. Refer to KDIGO guidelines for clinical interpretation. In patients with unstable renal function, e.g. those with acute kidney injury, the eGFR may not accurately reflect actual GFR. Performed By: #### 1 9123-9, 71985-3, 8 ####[facility]ORATORYIA [id number] [place] [address] [place] Glucose [Mass/Vol] 106 mg/dL High 74-99 [facility] Comment on above: Order Comment: Speci men Type: BLOOD SPECIMENOrdering Facility: [facility] Address: [address] [place] [address] Result Comment: The [place] Diabetes Association (ADA) provides guidance for cutoff values for fasting glucose and random glucose. The ADA defines fasting as no caloric intake for at least 8 hours. Fasting plasma glucose results between 100 to 125 mg/dL indicate increased risk for diabetes (prediabetes).Fasting plasma glucose results greater than or equal to 126 mg/dL meet the criteria for diagnosis of diabetes. In the absence of unequivocal hyperglycemia, results should be confirmed by repeat testing. In a patient with classic symptoms of hyperglycemia or hyperglycemic crisis, random plasma glucose results greater than or equal to 200 mg/dL meet the criteria for diagnosis of diabetes.Reference: Standards of Medical Care in Diabetes 2016, [place] Diabetes Association. Diabetes Care. 2016.39(Suppl 1). Performed By: #### 1 9123-9, 73218-8, 2570-12 ####[facility]ITALIA [id number] [place] [address] [place] Phosphate [Mass/Vol] 3.5 mg/dL Normal 2.7-4.8 [facility] Comment on above: Order Comment: Speci men Type: BLOOD SPECIMENOrdering Facility: [facility] Address: [address] [place] [address] Performed By: #### 1 9123-9, 33598-4, 2570-12 ####[facility]ITALIA [id number] [place] [address] [place] Potassium [Moles/Vol] 4.1 mmol/L Normal 3.7-5.1 [facility] Comment on above: Order Comment: Speci men Type: BLOOD SPECIMENOrdering Facility: [facility] Address: [address] [place], [place] [address] Performed By: #### 1 9123-9, 49553-3, 8 ####[facility]ORATORYIA [id number] [place] [address] [place] Sodium [Moles/Vol] 137 mmol/L Normal 136-144 [facility] Comment on above: Order Comment: Speci men Type: BLOOD SPECIMENOrdering Facility: [facility] Address: [address] [place] [address] Performed By: #### 1 9123-9, 55486-1, 257-8 ####[facility]ATORYIA [id number] [place] [address] [place] Urea nitrogen [Mass/Vol] 14 mg/dL Normal 7-21 [facility] Comment on above: Order Comment: Speci men Type: BLOOD SPECIMENOrdering Facility: [facility] Address: [address] [place] [address] Performed By: #### 1 9123-9, 81905-0, 2578 ####[facility]ITALIA [id number] [place] [address] [place] SEPSIS LACTATEon 12-26-2023 Lactate [Moles/Vol] 1.7 mmol/L Normal 0.0-2.0 [facility] Comment on above: Order Comment: Speci men Type: BLOOD SPECIMENOrdering Facility: [facility] Address: [address] [place] [address] Performed By: #### S LACT ####[facility]ATORYIA [id number] [place] [address] [place] THERAPY NTon 12-26-2023 THERAPY NT Normal [facility] THERAPY NT Normal [facility] THERAPY NT Normal [facility] Trigl SerPl-mCncon 4 Triglyceride [Mass/Vol] 70 mg/dL Normal <150 [facility] Comment on above: Order Comment: Speci men Type: BLOOD SPECIMENOrdering Facility: [facility] Address: [address] [place] [address] Result Comment: <150 mg/dL, Normal 150-199 mg/dL, Borderline high 200-499 mg/dL, High>499 mg/dL, Very highReference:1. National Cholesterol Education Program ATP III Guideline At-A-Glance Quick Desk Reference: National Heart, Lung, and Blood [place]. National Institutes of Health. 2001: NIH Publication No. 01-3305. Performed By: #### 1 9123-9, 99639-7, 2570-12 ####[facility] LABORATORYCLIA [id number] [place] [address] [place] Triglyceride [Mass/Vol]on FASTING TIME 12 hours Normal [facility] Comment on above: Order Comment: Speci men Type: BLOOD SPECIMENOrdering Facility: [facility] Address: [address] [place], [place] [address] Performed By: #### 1 9123-9, 28676-0, 2570-12 ####[facility] LABORATORYCLIA [id number] [place] [address] [place] XR CHEST 1V FRONTAL PORTon 0 12-26-2023 XR CHEST 1V FRONTAL PORT Normal [facility] Basic metabolic 2000 panelon 12-25-2023 Anion gap [Moles/Vol] 10 mmol/L Normal 8-15 [facility] Comment on above: Order Comment: Speci men Type: BLOOD SPECIMENOrdering Facility: [facility] Address: [address] [place], [place] [address] Performed By: #### 2 4321-2, 1987-09, , ####[facility] LABORATORYCLIA [id number] [place] [address] [place] Calcium [Mass/Vol] 8.4 mg/dL Low 8.5-10.2 [facility] Comment on above: Order Comment: Speci men Type: BLOOD SPECIMENOrdering Facility: [facility] Address: [facility] [place] [id number] Performed By: #### 2 432-2, 1987-09, , ####[facility] LABORATORYCLIA [id number] [place] [address] [place] Chloride [Moles/Vol] 101 mmol/L Normal 98-107 [facility] Comment on above: Order Comment: Speci men Type: BLOOD SPECIMENOrdering Facility: [facility] Address: [address] [place] [address] Performed By: #### 2 432-, 1987-09, , ####[facility]ORATORYCLIA [id number] [place] [address] [place] CO2 [Moles/Vol] 25 mmol/L Normal 22-30 [facility] Comment on above: Order Comment: Speci men Type: BLOOD SPECIMENOrdering Facility: [facility] Address: [address] [place] [address] Performed By: #### 2 43205-30, 1987-09, , ####[facility]ORATORYCLIA [id number] [place] [address] [place] Creatinine [Mass/Vol] 0.57 mg/dL Low 0.58-0.96 [facility] Comment on above: Order Comment: Speci men Type: BLOOD SPECIMENOrdering Facility: [facility] Address: [address] [place] [address] Performed By: #### 2 4320-06, 1987-09, , ####[facility]ORATORYCLIA [id number] [place] [address] [place] Creatinine and Glomerular filtration rate.predicted panel (S/P/Bld) 104 mL/min/1.73m??? Normal >=60 [facility] Comment on above: Order Comment: Speci men Type: BLOOD SPECIMENOrdering Facility: [facility] Address: [address] [place], [place] [address] Result Comment: Tuyet mated Glomerular Filtration Rate (eGFR) is calculated using the 2020 CKD-EPI creatinine equation. This equation utilizes serum creatinine, sex, and age as parameters. The creatinine assay has traceable calibration to isotope dilution-mass spectrometry. Refer to KDIGO guidelines for clinical interpretation. In patients with unstable renal function, e.g. those with acute kidney injury, the eGFR may not accurately reflect actual GFR. Performed By: #### 2 4320-, 1987-09, , ####[facility]ORATORYCLIA [id number] [place] [address] [place] Glucose [Mass/Vol] 113 mg/dL High 74-99 [facility] Comment on above: Order Comment: Speci men Type: BLOOD SPECIMENOrdering Facility: [facility] Address: [address] [place] [address] Result Comment: The Citizen [place] Diabetes Association (ADA) provides guidance for cutoff values for fasting glucose and random glucose. The ADA defines fasting as no caloric intake for at least 8 hours. Fasting plasma glucose results between 100 to 125 mg/dL indicate increased risk for diabetes (prediabetes).Fasting plasma glucose results greater than or equal to 126 mg/dL meet the criteria for diagnosis of diabetes. In the absence of unequivocal hyperglycemia, results should be confirmed by repeat testing. In a patient with classic symptoms of hyperglycemia or hyperglycemic crisis, random plasma glucose results greater than or equal to 200 mg/dL meet the criteria for diagnosis of diabetes.Reference: Standards of Medical Care in Diabetes 2016, [place] Diabetes Association. Diabetes Care. 2016.39(Suppl 1). Performed By: #### 2 4320-, 1987-09, , ####[facility]ORATORYCLIA [id number] [place] [address] [place] Potassium [Moles/Vol] 3.6 mmol/L Low 3.7-5.1 [facility] Comment on above: Order Comment: Speci men Type: BLOOD SPECIMENOrdering Facility: [facility] Address: [address] [place] [address] Performed By: #### 2 432-, 1987-09, , ####[facility]ORYIA [id number] [place] [address] [place] Sodium [Moles/Vol] 136 mmol/L Normal 136-144 [facility] Comment on above: Order Comment: Speci men Type: BLOOD SPECIMENOrdering Facility: [facility] Address: [address] [place] [address] Performed By: #### 2 4321-2, 1987-09, 88668-4, ####[facility]ORATORYCLIA [id number] [place] [address] [place] Urea nitrogen [Mass/Vol] 11 mg/dL Normal 7-21 [facility] Comment on above: Order Comment: Speci men Type: BLOOD SPECIMENOrdering Facility: [facility] Address: [address] [place] [address] Performed By: #### 2 4320-2, 1987-09, 28152-5, ####[facility]ORATORYIA [id number] [place] [address] [facility] [place] CASE MANAGEMon 12-25-2023 CASE MANAGEM Normal [facility] CBC panel Auto (Bld)on 12-24 Erythrocyte distribution width (RBC) [Ratio] 15.5 % High 11.5-15.0 [facility] Comment on above: Order Comment: Speci men Type: BLOOD SPECIMENOrdering Facility: [facility] Address: [address] [place] [address] Performed By: #### 5 8410-2 ####[facility]ITALIA [id number] [place] [address] [place] Hematocrit (Bld) [Volume fraction] 33.9 % Low 36.0-46.0 [facility] Comment on above: Order Comment: Speci men Type: BLOOD SPECIMENOrdering Facility: [facility] Address: [address] [place] [address] Performed By: #### 5 8410-2 ####[facility]ATORYIA [id number] [place] [address] [place] Hemoglobin (Bld) [Mass/Vol] 11.4 g/dL Low 11.5-15.5 [facility] Comment on above: Order Comment: Speci men Type: BLOOD SPECIMENOrdering Facility: [facility] Address: [address] [place] [address] Performed By: #### 5 8410-2 ####[facility]ITALIA [id number] [place] [address] [place] MCH (RBC) [Entitic mass] 27.1 pg Normal 26.0-34.0 [facility] Comment on above: Order Comment: Speci men Type: BLOOD SPECIMENOrdering Facility: [facility] Address: [address] [place] [address] Performed By: #### 5 8410-2 ####[facility] HOSPITALIA [id number] [place] [id number] [place] MCHC (RBC) [Mass/Vol] 33.6 g/dL Normal 30.5-36.0 [facility] Comment on above: Order Comment: Speci men Type: BLOOD SPECIMENOrdering Facility: [facility] Address: [address] [place] [address] Performed By: #### 5 8410-2 ####[facility] [id number] [address] [place] MCV (RBC) [Entitic vol] 80.5 fL Normal 80.0-100.0 [facility] Comment on above: Order Comment: Speci men Type: BLOOD SPECIMENOrdering Facility: [facility] Address: [address] [place] [address] Performed By: #### 5 8410-2 ####[facility] [id number] [address] [place] Nucleated RBC (Bld) [#/Vol] 10*3/uL Normal <0.01 [facility] Comment on above: Order Comment: Speci men Type: BLOOD SPECIMENOrdering Facility: [facility] Address: [address] [place] [address] Performed By: #### 5 8410-2 ####[facility] [id number] [place] [id number] [place] Platelet mean volume (Bld) [Entitic vol] 9.5 fL Normal 9.0-12.7 [facility] Comment on above: Order Comment: Speci men Type: BLOOD SPECIMENOrdering Facility: [facility] Address: [address] [place] [address] Performed By: #### 5 8410-2 ####[facility]ITALIA [id number] [place] [address] [place] Platelets (Bld) [#/Vol] 236 10*3/uL Normal 150-400 [facility] Comment on above: Order Comment: Speci men Type: BLOOD SPECIMENOrdering Facility: [facility] Address: [address] [place] [address] Performed By: #### 5 8410-2 ####[facility] [id number] [place] [address] [place] RBC (Bld) [#/Vol] 4.21 10*6/uL Normal 3.90-5.20 [facility] Comment on above: Order Comment: Speci men Type: BLOOD SPECIMENOrdering Facility: [facility] Address: [address] [place] [address] Performed By: #### 5 8410-2 ####[facility] [id number] [place] [address] [place] WBC (Bld) [#/Vol] 6.35 10*3/uL Normal 3.70-11.00 [facility] Comment on above: Order Comment: Speci men Type: BLOOD SPECIMENOrdering Facility: [facility] Address: [address] [place] [address] Performed By: #### 5 8410-2 ####[facility]ITALIA [id number] [place] [address] [place] CRP [facility] 12-25-2023 CRP [Mass/Vol] 7.2 mg/dL High <0.9 [facility] Comment on above: Order Comment: Speci men Type: BLOOD SPECIMENOrdering Facility: [facility] Address: [address] [place] [address] Performed By: #### 2 4321-2, 1987-, 25409-4, ####[facility] LABORATORYCLIA [id number] [place] [address] [place] Hepatic function 2000 panelo n 12-25-2023 Albumin [Mass/Vol] 3.3 g/dL Low 3.9-4.9 [facility] Comment on above: Order Comment: Speci men Type: BLOOD SPECIMENOrdering Facility: [facility] Address: [address] [place] [address] Performed By: #### 2 4320-2, 1987-09, , ####[facility] LABORATORYCLIA [id number] [place] [address] [place] ALP [Catalytic activity/Vol] 99 U/L Normal 34-123 [facility] [facility] Comment on above: Order Comment: Speci men Type: BLOOD SPECIMENOrdering Facility: [facility] Address: [address] [place] [address] Performed By: #### 2 4320-06, 1987-09, , ####[facility]PITALIA [id number] [place] [address] [place] ALT [Catalytic activity/Vol] 26 U/L Normal 7-38 [facility] Comment on above: Order Comment: Speci men Type: BLOOD SPECIMENOrdering Facility: [facility] Address: [address] [place] [address] Performed By: #### 2 2, 1987-09, , ####[facility]ITALIA [id number] [place] [address] [place] AST [Catalytic activity/Vol] 23 U/L Normal 13-35 [facility] Comment on above: Order Comment: Speci men Type: BLOOD SPECIMENOrdering Facility: [facility] Address: [address] [place] [address] Performed By: #### 2 4320-2, 1987-09, , ####[facility]ORATORYCLIA [id number] [place] [address] [place] Bilirubin [Mass/Vol] 0.5 mg/dL Normal 0.2-1.3 [facility] Comment on above: Order Comment: Speci men Type: BLOOD SPECIMENOrdering Facility: [facility] Address: [address] [place] [address] Performed By: #### 2 432-2, 1987-09, , ####[facility]ORATORYCLIA [id number] [place] [address] [place] Bilirubin.conjugated [Mass/Vol] mg/dL Normal <0.2 [facility] Comment on above: Order Comment: Speci men Type: BLOOD SPECIMENOrdering Facility: [facility] Address: [address] [place] [address] Performed By: #### 2 432-2, 1987-09, , ####[facility]ITAL[facility]IA [id number] [place] [address] [place] Protein [Mass/Vol] 6.1 g/dL Low 6.3-8.0 [facility] Comment on above: Order Comment: Speci men Type: BLOOD SPECIMENOrdering Facility: [facility] Address: [address] [place] [address] Performed By: #### 2 432-2, 1987-09, , ####[facility]ORATORYCLIA [id number] [place] [address] [place] Magnesium SerPl-mCncon 12-24 Magnesium [Mass/Vol] 2.0 mg/dL Normal 1.7-2.3 [facility] Comment on above: Order Comment: Speci men Type: BLOOD SPECIMENOrdering Facility: [facility] Address: [address] [place] [address] Performed By: #### 2 432-2, 1987-09, , ####[facility]ORATORYCLIA [id number] [place] [address] [place] OCCULT BLD EXAM-DIAGon 12-24 OCCULT BLD EXAM-DIAG Negative Normal [facility] Comment on above: Performed By: #### O BDX ####[facility]ORATORYIA [id number] [place] [address] [place] Phosphate SerPl-mCncon 12-24 Phosphate [Mass/Vol] 2.9 mg/dL Normal 2.7-4.8 [facility] Comment on above: Order Comment: Speci men Type: BLOOD SPECIMENOrdering Facility: [facility] Address: [address] [place] [address] Performed By: #### 2 777-1 ####[facility]ORATORYIA [id number] [place] [address] [facility] [place] ALLIED HEALTHon 12-24-2023 ALLIED HEALTH Normal [facility] CBC W Auto Differential pane l (Bld)on 12-24-2023 Basophils (Bld) [#/Vol] 10*3/uL Normal <0.11 [facility] Comment on above: Order Comment: Speci men Type: BLOOD SPECIMENOrdering Facility: [facility] Address: [address] [place] [address] Performed By: #### 5 7021-8 ####[facility] HOSPITALIA [id number] [facility] [id number] [place] Basophils/100 WBC (Bld) 0.2 % Normal [facility] Comment on above: Order Comment: Speci men Type: BLOOD SPECIMENOrdering Facility: [facility] Address: [address] [place] [address] Performed By: #### 5 7021-8 ####[facility]ORATORYIA [id number] [facility] [id number] [place] Differential cell count method Nom (Bld) Auto Normal [facility] Comment on above: Order Comment: Speci men Type: BLOOD SPECIMENOrdering Facility: [facility] Address: [address] [place] [address] Performed By: #### 5 7021-8 ####[facility]ORATORYCLIA [id number] [facility] [place] [place] [address] [place] Eosinophils (Bld) [#/Vol] 0.19 10*3/uL Normal <0.46 [facility] Comment on above: Order Comment: Speci men Type: BLOOD SPECIMENOrdering Facility: [facility] Address: [address] [place] [address] Performed By: #### 5 7021-8 ####[facility] LABORATORYIA [id number] [place] [id number] [place] Eosinophils/100 WBC (Bld) 3.7 % Normal [facility] Comment on above: Order Comment: Speci men Type: BLOOD SPECIMENOrdering Facility: [facility] Address: [address] [place] [address] Performed By: #### 5 7021-8 ####[facility] [id number] [place] [address] [place] Erythrocyte distribution width (RBC) [Ratio] 15.1 % High 11.5-15.0 [facility] Comment on above: Order Comment: Speci men Type: BLOOD SPECIMENOrdering Facility: [facility] Address: [address] [place] [address] Performed By: #### 5 7021-8 ####[facility] [id number] [place] [address] [place] Hematocrit (Bld) [Volume fraction] 24.1 % Low 36.0-46.0 [facility] Comment on above: Order Comment: Speci men Type: BLOOD SPECIMENOrdering Facility: [facility] Address: [address] [place] [address] Performed By: #### 5 7021-8 ####[facility]PITALIA [id number] [place] [id number] [place] Hemoglobin (Bld) [Mass/Vol] 8.3 g/dL Low 11.5-15.5 [facility] Comment on above: Order Comment: Speci men Type: BLOOD SPECIMENOrdering Facility: [facility] Address: [address] [place] [address] Performed By: #### 5 7021-8 ####[facility]ORATORYCLIA [id number] [place] [id number] [place] Immature granulocytes (Bld) [#/Vol] 0.03 10*3/uL Normal <0.10 [facility] Comment on above: Order Comment: Speci men Type: BLOOD SPECIMENOrdering Facility: [facility] Address: [address] [place] [address] Performed By: #### 5 7021-8 ####[facility]ORATORYCLIA [id number] [address] [place] Immature granulocytes/100 WBC (Bld) 0.6 % Normal [facility] Comment on above: Order Comment: Speci men Type: BLOOD SPECIMENOrdering Facility: [facility] Address: [address] [place] [address] Performed By: #### 5 7021-8 ####[facility] HOSPITALIA [id number] [place] [address] [place] Lymphocytes (Bld) [#/Vol] 0.47 10*3/uL Low 1.00-4.00 [facility] Comment on above: Order Comment: Speci men Type: BLOOD SPECIMENOrdering Facility: [facility] Address: [address] [place] [address] Performed By: #### 5 7021-8 ####[facility]ORATORYIA [id number] [place] [address] [place] Lymphocytes/100 WBC (Bld) 9.2 % Normal [facility] Comment on above: Order Comment: Speci men Type: BLOOD SPECIMENOrdering Facility: [facility] Address: [address] [place] [address] Performed By: #### 5 7021-8 ####[facility]ORATORYIA [id number] [place] [address] [place] MCH (RBC) [Entitic mass] 27.4 pg Normal 26.0-34.0 [facility] Comment on above: Order Comment: Speci men Type: BLOOD SPECIMENOrdering Facility: [facility] Address: [address] [place] [address] Performed By: #### 5 7021-8 ####[facility] HOSPITALIA [id number] [place] [address] [place] MCHC (RBC) [Mass/Vol] 34.4 g/dL Normal 30.5-36.0 [facility] Comment on above: Order Comment: Speci men Type: BLOOD SPECIMENOrdering Facility: [facility] Address: [address] [place] [address] Performed By: #### 5 7021-8 ####[facility] [id number] [place] [address] [place] MCV (RBC) [Entitic vol] 79.5 fL Low 80.0-100.0 [facility] Comment on above: Order Comment: Speci men Type: BLOOD SPECIMENOrdering Facility: [facility] Address: [address] [place] [address] Performed By: #### 5 7021-8 ####[facility] [id number] [place] [address] [place] Monocytes (Bld) [#/Vol] 0.71 10*3/uL Normal <0.87 [facility] Comment on above: Order Comment: Speci men Type: BLOOD SPECIMENOrdering Facility: [facility] Address: [address] [place] [address] Performed By: #### 5 7021-8 ####[facility] H[facility]PITALIA [id number] [place] [address] [place] Monocytes/100 WBC (Bld) 13.9 % Normal [facility] Comment on above: Order Comment: Speci men Type: BLOOD SPECIMENOrdering Facility: [facility] Address: [address] [place] [address] Performed By: #### 5 7021-8 ####[facility] LABORATORYIA [id number] [facility] [place] [address] [place] Neutrophils (Bld) [#/Vol] 3.68 10*3/uL Normal 1.45-7.50 [facility] Comment on above: Order Comment: Speci men Type: BLOOD SPECIMENOrdering Facility: [facility] Address: [address] [place] [address] Performed By: #### 5 7021-8 ####[facility]ORATORYCLIA [id number] [place] [address] [place] Neutrophils/100 WBC (Bld) 72.4 % Normal [facility] Comment on above: Order Comment: Speci men Type: BLOOD SPECIMENOrdering Facility: [facility] Address: [address] [place] [address] Performed By: #### 5 7021-8 ####[facility]ITALIA [id number] [place] [address] [place] Nucleated RBC (Bld) [#/Vol] 10*3/uL Normal <0.01 [facility] Comment on above: Order Comment: Speci men Type: BLOOD SPECIMENOrdering Facility: [facility] Address: [address] [place] [address] Performed By: #### 5 7021-8 ####[facility]ITALIA [id number] [place] [address] [place] Nucleated RBC/100 WBC (Bld) [Ratio] 0.0 /100 WBC Normal [facility] Comment on above: Order Comment: Speci men Type: BLOOD SPECIMENOrdering Facility: [facility] Address: [address] [place] [address] Performed By: #### 5 7021-8 ####[facility]ORATORYIA [id number] [place] [id number] [place] Platelet mean volume (Bld) [Entitic vol] 10.5 fL Normal 9.0-12.7 [facility] Comment on above: Order Comment: Speci men Type: BLOOD SPECIMENOrdering Facility: [facility] Address: [address] [place] [address] Performed By: #### 5 7021-8 ####[facility]ORATORYCLIA [id number] [place] [address] [facility] [place] Platelets (Bld) [#/Vol] 170 10*3/uL Normal 150-400 [facility] Comment on above: Order Comment: Speci men Type: BLOOD SPECIMENOrdering Facility: [facility] Address: [address] [place] [address] Performed By: #### 5 7021-8 ####[facility]ATORYIA [id number] [place] [address] [place] RBC (Bld) [#/Vol] 3.03 10*6/uL Low 3.90-5.20 [facility] Comment on above: Order Comment: Speci men Type: BLOOD SPECIMENOrdering Facility: [facility] Address: [address] [place] [address] Performed By: #### 5 7021-8 ####[facility]ITALIA [id number] [address] [place] WBC (Bld) [#/Vol] 5.09 10*3/uL Normal 3.70-11.00 [facility] Comment on above: Order Comment: Speci men Type: BLOOD SPECIMENOrdering Facility: [facility] Address: [address] [place] [address] Performed By: #### 5 7021-8 ####[facility] HOSPITALIA [id number] [place] [id number] [facility] CBC panel Auto (Bld)on 12-23 Erythrocyte distribution width (RBC) [Ratio] 15.4 % High 11.5-15.0 [facility] Comment on above: Order Comment: Speci men Type: BLOOD SPECIMENOrdering Facility: [facility] Address: [address] [place] [address] Performed By: #### 5 8410-2 ####[facility]ATORYIA [id number] [place] [id number] [place] Hematocrit (Bld) [Volume fraction] 28.3 % Low 36.0-46.0 [facility] Comment on above: Order Comment: Speci men Type: BLOOD SPECIMENOrdering Facility: [facility] Address: [address] [place] [address] Performed By: #### 5 8410-2 ####[facility]ATORYIA [id number] [place] [address] [place] Hemoglobin (Bld) [Mass/Vol] 9.8 g/dL Low 11.5-15.5 [facility] Comment on above: Order Comment: Speci men Type: BLOOD SPECIMENOrdering Facility: [facility] Address: [address] [place] [address] Performed By: #### 5 8410-2 ####[facility]ITALIA [id number] [address] [place] MCH (RBC) [Entitic mass] 27.8 pg Normal 26.0-34.0 [facility] Comment on above: Order Comment: Speci men Type: BLOOD SPECIMENOrdering Facility: [facility] Address: [address] [place] [address] Performed By: #### 5 8410-2 ####[facility] [id number] [place] [id number] [place] MCHC (RBC) [Mass/Vol] 34.6 g/dL Normal 30.5-36.0 [facility] Comment on above: Order Comment: Speci men Type: BLOOD SPECIMENOrdering Facility: [facility] Address: [address] [place] [address] Performed By: #### 5 8410-2 ####[facility]ORATORYIA [id number] [place] [id number] [place] MCV (RBC) [Entitic vol] 80.2 fL Normal 80.0-100.0 [facility] Comment on above: Order Comment: Speci men Type: BLOOD SPECIMENOrdering Facility: [facility] Address: [address] [place] [address] Performed By: #### 5 8410-2 ####[facility]ORATORYCLIA [id number] [facility] [place] [address] [place] Nucleated RBC (Bld) [#/Vol] 10*3/uL Normal <0.01 [facility] Comment on above: Order Comment: Speci men Type: BLOOD SPECIMENOrdering Facility: [facility] Address: [address] [place] [address] Performed By: #### 5 8410-2 ####[facility]ORATORYCLIA [id number] [facility] [place] [address] [place] Platelet mean volume (Bld) [Entitic vol] 10.8 fL Normal 9.0-12.7 [facility] Comment on above: Order Comment: Speci men Type: BLOOD SPECIMENOrdering Facility: [facility] Address: [address] [place] [address] Performed By: #### 5 8410-2 ####[facility]ITALIA [id number] [facility] [place] [address] [place] Platelets (Bld) [#/Vol] 217 10*3/uL Normal 150-400 [facility] Comment on above: Order Comment: Speci men Type: BLOOD SPECIMENOrdering Facility: [facility] Address: [address] [place] [address] Performed By: #### 5 8410-2 ####[facility]ATORYIA [id number] [facility] [place] [address] [place] RBC (Bld) [#/Vol] 3.53 10*6/uL Low 3.90-5.20 [facility] Comment on above: Order Comment: Speci men Type: BLOOD SPECIMENOrdering Facility: [facility] Address: [address] [place] [address] Performed By: #### 5 8410-2 ####[facility]ATORYIA [id number] [facility] [place] [address] [place] WBC (Bld) [#/Vol] 6.14 10*3/uL Normal 3.70-11.00 [facility] Comment on above: Order Comment: Speci men Type: BLOOD SPECIMENOrdering Facility: [facility] Address: [address] [place] [address] Performed By: #### 5 8410-2 ####[facility]ORATORYCLIA [id number] [place] [address] [place] CT ABD/PEL W IVCONon 024 CT ABD/PEL W IVCON Normal [facility] Comprehensive metabolic 2000 panelon 12-24-2023 Albumin [Mass/Vol] 2.8 g/dL Low 3.9-4.9 [facility] Comment on above: Order Comment: Speci men Type: BLOOD SPECIMENOrdering Facility: [facility] Address: [address] [place] [address] Performed By: #### 2 4323-8, , 2776- ####[facility]ATORYCLIA [id number] [place] [address] [place] ALP [Catalytic activity/Vol] 79 U/L Normal 34-123 [facility] Comment on above: Order Comment: Speci men Type: BLOOD SPECIMENOrdering Facility: [facility] Address: [address] [place], [place] [address] [address] Performed By: #### 2 4323-8, , 2776-05 ####[facility]ORATORYCLIA [id number] [place] [address] [place] ALT [Catalytic activity/Vol] 15 U/L Normal 7-38 [facility] Comment on above: Order Comment: Speci men Type: BLOOD SPECIMENOrdering Facility: [facility] Address: [address] [place] [address] Performed By: #### 2 4323-8, , 2776-05 ####[facility]ATORYCLIA [id number] [place] [address] [place] Anion gap [Moles/Vol] 11 mmol/L Normal 8-15 [facility] Comment on above: Order Comment: Speci men Type: BLOOD SPECIMENOrdering Facility: [facility] Address: [address] [place] [address] Performed By: #### 2 4323-8, , 2776-05 ####[facility]ATORYCLIA [id number] [place] [address] [place] AST [Catalytic activity/Vol] 21 U/L Normal 13-35 [facility] Comment on above: Order Comment: Speci men Type: BLOOD SPECIMENOrdering Facility: [facility] Address: [address] [place] [address] Performed By: #### 2 4323-8, , 2776-05 ####[facility]ATORYCLIA [id number] [place] [address] [place] Bilirubin [Mass/Vol] 0.4 mg/dL Normal 0.2-1.3 [facility] Comment on above: Order Comment: Speci men Type: BLOOD SPECIMENOrdering Facility: [facility] Address: [address] [place] [address] Performed By: #### 2 4323-8, , 2776-05 ####[facility]ITALCLIA [id number] [place] [address] [place] Calcium [Mass/Vol] 8.0 mg/dL Low 8.5-10.2 [facility] Comment on above: Order Comment: Speci men Type: BLOOD SPECIMENOrdering Facility: [facility] Address: [address] [place] [address] Performed By: #### 2 4323-8, , 2776-05 ####[facility]ORATORYCLIA [id number] [place] [address] [place] Chloride [Moles/Vol] 99 mmol/L Normal 98-107 [facility] Comment on above: Order Comment: Speci men Type: BLOOD SPECIMENOrdering Facility: [facility] Address: [address] [place] [address] Performed By: #### 2 4323-8, , 2776-05 ####[facility]ORATORYCLIA [id number] [place] [address] [place] CO2 [Moles/Vol] 25 mmol/L Normal 22-30 [facility] Comment on above: Order Comment: Speci men Type: BLOOD SPECIMENOrdering Facility: [facility] Address: [address] [place] [address] Performed By: #### 2 4323-8, , 2776-05 ####[facility]ORATORYIA [id number] [place] [address] [place] Creatinine [Mass/Vol] 0.66 mg/dL Normal 0.58-0.96 [facility] Comment on above: Order Comment: Speci men Type: BLOOD SPECIMENOrdering Facility: [facility] Address: [address] [place] [address] Performed By: #### 2 4323-8, , 2776-05 ####[facility] HOSPITALIA [id number] [facility] [id number] [place] Creatinine and Glomerular filtration rate.predicted panel (S/P/Bld) 100 mL/min/1.73m??? Normal >=60 [facility] Comment on above: Order Comment: Speci men Type: BLOOD SPECIMENOrdering Facility: [facility] Address: [address] [place] [address] Result Comment: Tuyet mated Glomerular Filtration Rate (eGFR) is calculated using the 2020 CKD-EPI creatinine equation. This equation utilizes serum creatinine, sex, and age as parameters. The creatinine assay has traceable calibration to isotope dilution-mass spectrometry. Refer to KDIGO guidelines for clinical interpretation. In patients with unstable renal function, e.g. those with acute kidney injury, the eGFR may not accurately reflect actual GFR. Performed By: #### 2 4323-8, , 2776-05 ####[facility] LABORATORYIA [id number] [place] [address] [place] Glucose [Mass/Vol] 93 mg/dL Normal 74-99 [facility] Comment on above: Order Comment: Speci men Type: BLOOD SPECIMENOrdering Facility: [facility] Address: [address] [place], [place] [address] Result Comment: The [place] Diabetes Association (ADA) provides guidance for cutoff values for fasting glucose and random glucose. The ADA defines fasting as no caloric intake for at least 8 hours. Fasting plasma glucose results between 100 to 125 mg/dL indicate increased risk for diabetes (prediabetes).Fasting plasma glucose results greater than or equal to 126 mg/dL meet the criteria for diagnosis of diabetes. In the absence of unequivocal hyperglycemia, results should be confirmed by repeat testing. In a patient with classic symptoms of hyperglycemia or hyperglycemic crisis, random plasma glucose results greater than or equal to 200 mg/dL meet the criteria for diagnosis of diabetes.Reference: Standards of Medical Care in Diabetes 2016, [place] Diabetes Association. Diabetes Care. 2016.39(Suppl 1). Performed By: #### 2 4323-8, , 2776-05 ####[facility]ORATORYCLIA [id number] [place] [address] [place] Potassium [Moles/Vol] 3.4 mmol/L Low 3.7-5.1 [facility] Comment on above: Order Comment: Speci men Type: BLOOD SPECIMENOrdering Facility: [facility] Address: [address] [place], [place] [address] Performed By: #### 2 4323-8, , 2776-05 ####[facility] H[facility]PITALIA [id number] [place] [address] [place] Protein [Mass/Vol] 5.0 g/dL Low 6.3-8.0 [facility] Comment on above: Order Comment: Speci men Type: BLOOD SPECIMENOrdering Facility: [facility] Address: [address] [place], [place] [id number] Performed By: #### 2 4323-8, , 2776-05 ####[facility] [id number] [place] [address] [place] Sodium [Moles/Vol] 135 mmol/L Low 136-144 [facility] Comment on above: Order Comment: Speci men Type: BLOOD SPECIMENOrdering Facility: [facility] Address: [address] [place] [address] Performed By: #### 2 4323-8, 28252-5, 27711-26 ####[facility] [id number] [place] [address] [place] Urea nitrogen [Mass/Vol] 22 mg/dL High 7-21 [facility] Comment on above: Order Comment: Speci men Type: BLOOD SPECIMENOrdering Facility: [facility] Address: [address] [place] [address] Performed By: #### 2 4323-8, , 2776-05 ####[facility] [id number] [place] [address] [place] HIGH SENSITIVITY TROPONIN To n 12-24-2023 Troponin T.cardiac High sensitivity method [Mass/Vol] 18 ng/L High <12 [facility] Comment on above: Order Comment: Speci men Type: BLOOD SPECIMENOrdering Facility: [facility] Address: [address] [place] [address] Performed By: #### H STNT ####[facility] [id number] [place] [address] [facility] [place] Troponin T.cardiac High sensitivity method [Mass/Vol] 18 ng/L High <12 [facility] Comment on above: Order Comment: Speci men Type: BLOOD SPECIMENOrdering Facility: [facility] Address: [address] [place] [address] Performed By: #### H STNT ####[facility] [id number] [place] [address] [place] Troponin T.cardiac High sensitivity method [Mass/Vol] 22 ng/L High <12 [facility] Comment on above: Order Comment: Speci men Type: BLOOD SPECIMENOrdering Facility: [facility] Address: [address] [place] [address] Performed By: #### H STNT ####[facility]ORATORYIA [id number] [place] [address] [place] HIV 1+2 Ab IA Qlon 4 HIV 1 and 2 Ab IA.rapid Nom (S/P/Bld) Normal [facility] Comment on above: Order Comment: Speci men Type: BLOOD SPECIMENOrdering Facility: [facility] Address: [address] [place] [address] Result Comment: Test not indicated. Performed By: #### 3 1201-7, 2691- ####[facility] LABCLIA [id number] [address] [place] HIV 1+2 Ab+HIV1 p24 Ag IA Ql Non-Reactive Normal Nonreactive [facility] Comment on above: Order Comment: Speci men Type: BLOOD SPECIMENOrdering Facility: [facility] Address: [address] [place] [address] Performed By: #### 3 1207, 2691-06 ####[facility] LABCLIA [id number] [address] STATES [facility] HIV immunoassay testing algorithm interpretation (S/P/Bld) [Interp] [facility] Comment on above: Order Comment: Speci men Type: BLOOD SPECIMENOrdering Facility: [facility] Address: [address] [place] [address] Result Comment: No e vidence of HIV-1 or HIV-2 infection. Should recent infection be suspected, repeat testing may be considered 2-3 weeks after this draw.[place] Rev. Code 3701.243(E): This information has been disclosed to you from confidential records protected from disclosure by state law. ???You shall make no further disclosure of this information without the specific, written, and informed release of the individual to whom it pertains or as otherwise permitted by state law. A general authorization for the release of medical or other information is not sufficient for the purpose of the release of HIV test results or diagnoses. Performed By: #### 3 1201-7, 2691- ####[facility] LABCLIA [id number] [place] [address] [place] Magnesium SerPl-mCncon 12-23 Magnesium [Mass/Vol] 2.5 mg/dL High 1.7-2.3 [facility] Comment on above: Order Comment: Speci men Type: BLOOD SPECIMENOrdering Facility: [facility] Address: [address] [place] [address] Performed By: #### 1 9123-9, 83434-3 ####[facility]ITAL[facility] [id number] [place] [address] [place] Magnesium [Mass/Vol] 1.6 mg/dL Low 1.7-2.3 [facility] Comment on above: Order Comment: Speci men Type: BLOOD SPECIMENOrdering Facility: [facility] Address: [address] [place] [address] Performed By: #### 2 4323-8, 10625-2, 2777-1 ####[facility] [id number] [place] [address] [place] Osmolality [facility] Osmolality [Osmolality] 278 mosm/kg Normal 275-300 [facility] Comment on above: Order Comment: Speci men Type: BLOOD SPECIMENOrdering Facility: [facility] Address: [address] [place] [address] Performed By: #### 3 1201-7, 2692-2 ####[facility] LABCLIA [id number] [facility] [address] [address] [place] Phosphate SerPl-mCncon 12-23 Phosphate [Mass/Vol] 3.0 mg/dL Normal 2.7-4.8 [facility] Comment on above: Order Comment: Speci men Type: BLOOD SPECIMENOrdering Facility: [facility] Address: [address] [place] [address] Performed By: #### 2 4323-8, 01443-5, 2777-1 ####[facility] [id number] [place] [address] [place] Renal function 2000 panelon 07-28-2024 Albumin [Mass/Vol] 2.9 g/dL Low 3.9-4.9 [facility] Comment on above: Order Comment: Speci men Type: BLOOD SPECIMENOrdering Facility: [facility] Address: [address] [place] [address] Performed By: #### 1 9123-9, 90654-6 ####[facility]ORATORYCLIA [id number] [place] [address] [place] Anion gap [Moles/Vol] 7 mmol/L Low 8-15 [facility] Comment on above: Order Comment: Speci men Type: BLOOD SPECIMENOrdering Facility: [facility] Address: [address] [place] [address] Performed By: #### 1 9123-9, 20424-0 ####[facility]ORATORYCLIA [id number] [place] [address] [place] Calcium [Mass/Vol] 8.0 mg/dL Low 8.5-10.2 [facility] Comment on above: Order Comment: Speci men Type: BLOOD SPECIMENOrdering Facility: [facility] Address: [address] [place] [address] Performed By: #### 1 9123-9, 98024-7 ####[facility] LABORATORYCLIA [id number] [place] [address] [place] Chloride [Moles/Vol] 101 mmol/L Normal 98-107 [facility] Comment on above: Order Comment: Speci men Type: BLOOD SPECIMENOrdering Facility: [facility] Address: [address] [place] [address] Performed By: #### 1 9123-9, 81230-6 ####[facility] LABORATORYCLIA [id number] [place] [address] [place] CO2 [Moles/Vol] 26 mmol/L Normal 22-30 [facility] Comment on above: Order Comment: Speci men Type: BLOOD SPECIMENOrdering Facility: [facility] Address: [address] [place] [address] Performed By: #### 1 9123-9, ####[facility]ORATORYCLIA [id number] [place] [address] [place] Creatinine [Mass/Vol] 0.63 mg/dL Normal 0.58-0.96 [facility] Comment on above: Order Comment: Speci men Type: BLOOD SPECIMENOrdering Facility: [facility] Address: [address] [place] [address] Performed By: #### 1 239, ####[facility]ATORYIA [id number] [place] [address] [place] Creatinine and Glomerular filtration rate.predicted panel (S/P/Bld) 101 mL/min/1.73m??? Normal >=60 [facility] Comment on above: Order Comment: Speci men Type: BLOOD SPECIMENOrdering Facility: [facility] Address: [address] [place] [address] Performed By: #### 1 91239, ####[facility]ITALIA [id number] [place] [address] [place] Glucose [Mass/Vol] 89 mg/dL Normal 74-99 [facility] Comment on above: Order Comment: Speci men Type: BLOOD SPECIMENOrdering Facility: [facility] Address: [address] [place] [address] Performed By: #### 1 9123-9, ####[facility]ORATORYIA [id number] [place] [address] [place] Phosphate [Mass/Vol] 3.1 mg/dL Normal 2.7-4.8 [facility] Comment on above: Order Comment: Speci men Type: BLOOD SPECIMENOrdering Facility: [facility] Address: [address] [place] [address] Performed By: #### 1 9123-9, ####[facility]ORATORYIA [id number] [place] [address] [place] Potassium [Moles/Vol] 3.4 mmol/L Low 3.7-5.1 [facility] Comment on above: Order Comment: Speci men Type: BLOOD SPECIMENOrdering Facility: [facility] Address: [address] [place] [address] Performed By: #### 1 9123-9, 52085-9 ####[facility]ORATORYIA [id number] [place] [address] [place] [facility] Sodium [Moles/Vol] 134 mmol/L Low 136-144 [facility] Comment on above: Order Comment: Speci men Type: BLOOD SPECIMENOrdering Facility: [facility] Address: [address] [place] [address] Performed By: #### 1 9123-9, 49011-7 ####[facility] HOSPITALIA [id number] [place] [id number] [place] [facility] Urea nitrogen [Mass/Vol] 19 mg/dL Normal 7-21 [facility] Comment on above: Order Comment: Speci men Type: BLOOD SPECIMENOrdering Facility: [facility] Address: [address] [place] [address] Performed By: #### 1 9123-9, 92090-3 ####[facility]ITALIA [id number] [place] [id number] [facility] [place] SEPSIS LACTATE W/ REFLEX (IN ITIAL)on 12-24-2023 Lactate [Moles/Vol] 0.8 mmol/L Normal 0.0-2.0 [facility] Comment on above: Order Comment: Speci men Type: BLOOD SPECIMENOrdering Facility: [facility] Address: [address] [place] [address] Performed By: #### S LACTR ####[facility]ORATORYIA [id number] [place] [id number] [place] XR ABD 2V SUPINE W UPR/DECUB /CTLon 12-24-2023 XR ABD 2V SUPINE W UPR/DECUB/CTL Normal [facility] Magnesium SerPl-mCncon 12-22 Magnesium [Mass/Vol] 1.6 mg/dL Low 1.7-2.3 [facility] Comment on above: Order Comment: Speci men Type: BLOOD SPECIMENOrdering Facility: [facility] Address: [address] [place] [address] Performed By: #### 1 9123-9, 83403-7 ####[facility]ORATORYCLIA [id number] [place] [address] [place] Renal function 2000 panelon 12-23-2023 Albumin [Mass/Vol] 3.3 g/dL Low 3.9-4.9 [facility] Comment on above: Order Comment: Speci men Type: BLOOD SPECIMENOrdering Facility: [facility] Address: [address] [place] [address] Performed By: #### 1 9123-9, 45850-1 ####[facility]ATORYIA [id number] [place] [address] [place] Anion gap [Moles/Vol] 11 mmol/L Normal 8-15 [facility] Comment on above: Order Comment: Speci men Type: BLOOD SPECIMENOrdering Facility: [facility] Address: [address] [place] [address] Performed By: #### 1 9123-9, 31894-1 ####[facility]ITALIA [id number] [place] [address] [place] Calcium [Mass/Vol] 8.4 mg/dL Low 8.5-10.2 [facility] Comment on above: Order Comment: Speci men Type: BLOOD SPECIMENOrdering Facility: [facility] Address: [address] [place] [address] Performed By: #### 1 9123-9, 89215-5 ####[facility]ORATORYCLIA [id number] [place] [address] [place] Chloride [Moles/Vol] 97 mmol/L Low 98-107 [facility] Comment on above: Order Comment: Speci men Type: BLOOD SPECIMENOrdering Facility: [facility] Address: [address] [place] [address] Performed By: #### 1 9123-9, 12481-8 ####[facility]ORATORYCLIA [id number] [place] [address] [place] CO2 [Moles/Vol] 26 mmol/L Normal 22-30 [facility] Comment on above: Order Comment: Speci men Type: BLOOD SPECIMENOrdering Facility: [facility] Address: [address] [place] [address] Performed By: #### 1 9123-9, 05114-6 ####[facility]ORATORYCLIA [id number] [place] [address] [place] Creatinine [Mass/Vol] 0.65 mg/dL Normal 0.58-0.96 [facility] Comment on above: Order Comment: Speci men Type: BLOOD SPECIMENOrdering Facility: [facility] Address: [address] [place] [address] Performed By: #### 1 9123-9, 89450-4 ####[facility]ITALIA [id number] [place] [address] [place] Creatinine and Glomerular filtration rate.predicted panel (S/P/Bld) 100 mL/min/1.73m??? Normal >=60 [facility] Comment on above: Order Comment: Speci men Type: BLOOD SPECIMENOrdering Facility: [facility] Address: [address] [place] [address] Performed By: #### 1 9123-9, 46710-1 ####[facility]ORATORYIA [id number] [place] [address] [place] Glucose [Mass/Vol] 95 mg/dL Normal 74-99 [facility] Comment on above: Order Comment: Speci men Type: BLOOD SPECIMENOrdering Facility: [facility] Address: [address] [place] [address] Performed By: #### 1 9123-9, 06430-6 ####[facility]ATORYIA [id number] [place] [address] [place] Phosphate [Mass/Vol] 2.5 mg/dL Low 2.7-4.8 [facility] Comment on above: Order Comment: Speci men Type: BLOOD SPECIMENOrdering Facility: [facility] Address: [address] [place] [address] Performed By: #### 1 9123-9, 06360-4 ####[facility]ORATORYCLIA [id number] [place] [address] [place] Potassium [Moles/Vol] 3.4 mmol/L Low 3.7-5.1 [facility] Comment on above: Order Comment: Speci men Type: BLOOD SPECIMENOrdering Facility: [facility] Address: [address] [place] [address] Performed By: #### 1 9123-9, 40515-4 ####[facility]ORATORYCLIA [id number] [place] [address] [place] Sodium [Moles/Vol] 134 mmol/L Low 136-144 [facility] Comment on above: Order Comment: Speci men Type: BLOOD SPECIMENOrdering Facility: [facility] Address: [address] [place] [address] Performed By: #### 1 9123-9, 54329-1 ####[facility]ORATORYCLIA [id number] [place] [address] [place] Urea nitrogen [Mass/Vol] 25 mg/dL High 7-21 [facility] Comment on above: Order Comment: Speci men Type: BLOOD SPECIMENOrdering Facility: [facility] Address: [address] [place] [address] Performed By: #### 1 9123-9, 55084-4 ####[facility]ORATORYCLIA [id number] [place] [address] [place] XR ABDOMEN 1V SUPINEon 12-22 XR ABDOMEN 1V SUPINE Normal [facility] CASE MANAGEMon 12-22-2023 CASE MANAGEM Normal [facility] CASE MANAGEM Normal [facility] Magnesium SerPl-mCncon 12-21 Magnesium [Mass/Vol] 1.6 mg/dL Low 1.7-2.3 [facility] Comment on above: Order Comment: Speci men Type: BLOOD SPECIMENOrdering Facility: [facility] Address: [address] [place] [address] Performed By: #### 1 9123-9, 82467-2 ####[facility]ORATORYCLIA [id number] [place] [address] [place] Renal function 2000 panelon 12-22-2023 Albumin [Mass/Vol] 3.6 g/dL Low 3.9-4.9 [facility] Comment on above: Order Comment: Speci men Type: BLOOD SPECIMENOrdering Facility: [facility] Address: [address] [place] [address] Performed By: #### 1 9123-9, 56139-2 ####[facility]ORATORYCLIA [id number] [place] [address] [place] Anion gap [Moles/Vol] 11 mmol/L Normal 8-15 [facility] Comment on above: Order Comment: Speci men Type: BLOOD SPECIMENOrdering Facility: [facility] Address: [address] [place] [address] Performed By: #### 1 9123-9, 06549-5 ####[facility]ORATORYCLIA [id number] [place] [address] [place] Calcium [Mass/Vol] 8.4 mg/dL Low 8.5-10.2 [facility] Comment on above: Order Comment: Speci men Type: BLOOD SPECIMENOrdering Facility: [facility] Address: [address] [place] [address] Performed By: #### 1 9123-9, 14583-4 ####[facility]ORATORYCLIA [id number] [place] [address] [place] Chloride [Moles/Vol] 100 mmol/L Normal 98-107 [facility] Comment on above: Order Comment: Speci men Type: BLOOD SPECIMENOrdering Facility: [facility] Address: [address] [place] [address] Performed By: #### 1 9123-9, 31113-9 ####[facility]ORATORYCLIA [id number] [place] [address] [place] CO2 [Moles/Vol] 25 mmol/L Normal 22-30 [facility] Comment on above: Order Comment: Speci men Type: BLOOD SPECIMENOrdering Facility: [facility] Address: [address] [place] [address] Performed By: #### 1 9123-9, 46153-6 ####[facility]ORATORYCLIA [id number] [place] [address] [place] Creatinine [Mass/Vol] 0.60 mg/dL Normal 0.58-0.96 [facility] Comment on above: Order Comment: Speci men Type: BLOOD SPECIMENOrdering Facility: [facility] Address: [address] [place] [address] Performed By: #### 1 9123-9, 72444-3 ####[facility]ORATORYCLIA [id number] [facility] [place] Creatinine and Glomerular filtration rate.predicted panel (S/P/Bld) 102 mL/min/1.73m??? Normal >=60 [facility] Comment on above: Order Comment: Speci men Type: BLOOD SPECIMENOrdering Facility: [facility] Address: [address] [place] [address] Result Comment: Tuyet mated Glomerular Filtration Rate (eGFR) is calculated using the 2020 CKD-EPI creatinine equation. This equation utilizes serum creatinine, sex, and age as parameters. The creatinine assay has traceable calibration to isotope dilution-mass spectrometry. Refer to KDIGO guidelines for clinical interpretation. In patients with unstable renal function, e.g. those with acute kidney injury, the eGFR may not accurately reflect actual GFR. Performed By: #### 1 9123-9, 82899-3 ####[facility] LABORATORYCLIA [id number] [place] [address] [place] Glucose [Mass/Vol] 107 mg/dL High 74-99 [facility] Comment on above: Order Comment: Speci men Type: BLOOD SPECIMENOrdering Facility: [facility] Address: [address] [place] [address] Result Comment: The [place] Diabetes Association (ADA) provides guidance for cutoff values for fasting glucose and random glucose. The ADA defines fasting as no caloric intake for at least 8 hours. Fasting plasma glucose results between 100 to 125 mg/dL indicate increased risk for diabetes (prediabetes).Fasting plasma glucose results greater than or equal to 126 mg/dL meet the criteria for diagnosis of diabetes. In the absence of unequivocal hyperglycemia, results should be confirmed by repeat testing. In a patient with classic symptoms of hyperglycemia or hyperglycemic crisis, random plasma glucose results greater than or equal to 200 mg/dL meet the criteria for diagnosis of diabetes.Reference: Standards of Medical Care in Diabetes 2016, [place] Diabetes Association. Diabetes Care. 2016.39(Suppl 1). Performed By: #### 1 9123-9, 93786-6 ####[facility]ORATORYCLIA [id number] [place] [address] [place] Phosphate [Mass/Vol] 1.8 mg/dL Low 2.7-4.8 [facility] Comment on above: Order Comment: Speci men Type: BLOOD SPECIMENOrdering Facility: [facility] Address: [address] [place] [address] Performed By: #### 1 9123-9, 86668-9 ####[facility]ITALCLIA [id number] [place] [address] [place] Potassium [Moles/Vol] 3.6 mmol/L Low 3.7-5.1 [facility] Comment on above: Order Comment: Speci men Type: BLOOD SPECIMENOrdering Facility: [facility] Address: [address] [place] [address] Performed By: #### 1 9123-9, 21220-5 ####[facility] LABORATORYCLIA [id number] [place] [address] [place] Sodium [Moles/Vol] 136 mmol/L Normal 136-144 [facility] Comment on above: Order Comment: Speci men Type: BLOOD SPECIMENOrdering Facility: [facility] Address: [address] [place] [address] Performed By: #### 1 9123-9, 66290-2 ####[facility] LABORATORYCLIA [id number] [place] [address] [place] Urea nitrogen [Mass/Vol] 19 mg/dL Normal 7-21 [facility] Comment on above: Order Comment: Speci men Type: BLOOD SPECIMENOrdering Facility: [facility] Address: [address] [place] [address] Performed By: #### 1 9123-9, 18328-6 ####[facility] LABORATORYCLIA [id number] [place] [address] [place] THERAPY NTon 12-22-2023 THERAPY NT Normal [facility] CASE MANAGEMon 12-21-2023 CASE MANAGEM Normal [facility] CBC panel Auto (Bld)on 12-20 Erythrocyte distribution width (RBC) [Ratio] 15.6 % High 11.5-15.0 [facility] Comment on above: Order Comment: Speci men Type: BLOOD SPECIMENOrdering Facility: [facility] Address: [address] [place] [address] Performed By: #### 5 8410-2 ####[facility] LABORATORYCLIA [id number] [place] [address] [place] Hematocrit (Bld) [Volume fraction] 37.5 % Normal 36.0-46.0 [facility] Comment on above: Order Comment: Speci men Type: BLOOD SPECIMENOrdering Facility: [facility] Address: [address] [place] [address] Performed By: #### 5 8410-2 ####[facility] LABORATORYCLIA [id number] [place] [address] [place] Hemoglobin (Bld) [Mass/Vol] 12.4 g/dL Normal 11.5-15.5 [facility] Comment on above: Order Comment: Speci men Type: BLOOD SPECIMENOrdering Facility: [facility] Address: [address] [place] [address] Performed By: #### 5 8410-2 ####[facility] HOSPITALIA [id number] [place], [place] [address] [place] [address] [place] MCH (RBC) [Entitic mass] 27.7 pg Normal 26.0-34.0 [facility] Comment on above: Order Comment: Speci men Type: BLOOD SPECIMENOrdering Facility: [facility] Address: [address] [place] [address] Performed By: #### 5 8410-2 ####[facility] HOSPITALIA [id number] [address] [place] MCHC (RBC) [Mass/Vol] 33.1 g/dL Normal 30.5-36.0 [facility] Comment on above: Order Comment: Speci men Type: BLOOD SPECIMENOrdering Facility: [facility] Address: [address] [place] [address] Performed By: #### 5 8410-2 ####[facility] [id number] [address] [place] MCV (RBC) [Entitic vol] 83.7 fL Normal 80.0-100.0 [facility] Comment on above: Order Comment: Speci men Type: BLOOD SPECIMENOrdering Facility: [facility] Address: [address] [place] [address] Performed By: #### 5 8410-2 ####[facility] [id number] [address] [place] Nucleated RBC (Bld) [#/Vol] 10*3/uL Normal <0.01 [facility] Comment on above: Order Comment: Speci men Type: BLOOD SPECIMENOrdering Facility: [facility] Address: [address] [place] [address] Performed By: #### 5 8410-2 ####[facility] [id number] [address] [place] mean volume (Bld) [Entitic vol] 10.4 fL Normal 9.0-12.7 [facility] Comment on above: Order Comment: Speci men Type: BLOOD SPECIMENOrdering Facility: [facility] Address: [address] [place] [address] Performed By: #### 5 8410-2 ####[facility] LABORATORYIA [id number] [place] [address] [facility] [place] Platelets (Bld) [#/Vol] 240 10*3/uL Normal 150-400 [facility] Comment on above: Order Comment: Speci men Type: BLOOD SPECIMENOrdering Facility: [facility] Address: [address] [place] [address] Performed By: #### 5 8410-2 ####[facility] HOSPITALIA [id number] [place] [id number] [place] RBC (Bld) [#/Vol] 4.48 10*6/uL Normal 3.90-5.20 [facility] Comment on above: Order Comment: Speci men Type: BLOOD SPECIMENOrdering Facility: [facility] Address: [address] [place] [address] Performed By: #### 5 8410-2 ####[facility] HOSPITALIA [id number] [place] [id number] [place] WBC (Bld) [#/Vol] 10.39 10*3/uL Normal 3.70-11.00 [facility] Comment on above: Order Comment: Speci men Type: BLOOD SPECIMENOrdering Facility: [facility] Address: [address] [place] [address] Performed By: #### 5 8410-2 ####[facility] HOSPITALIA [id number] [place] [address] [place] Magnesium SerPl-ncon 12-20 Magnesium [Mass/Vol] 1.8 mg/dL Normal 1.7-2.3 [facility] Comment on above: Order Comment: Speci men Type: BLOOD SPECIMENOrdering Facility: [facility] Address: [address] [place] [address] Performed By: #### 1 9123-9, 34078-8 ####[facility] LABORATORYCLIA [id number] [place] [address] [place] NUTRITIONon 12-21-2023 NUTRITION Normal [facility] Renal function 2000 [facility] 12-21-2023 Albumin [Mass/Vol] 3.7 g/dL Low 3.9-4.9 [facility] Comment on above: Order Comment: Speci men Type: BLOOD SPECIMENOrdering Facility: [facility] Address: [address] [place] [address] Performed By: #### 1 9123-9, 33406-9 ####[facility] LABORATORYCLIA [id number] [place] [address] [place] Anion gap [Moles/Vol] 11 mmol/L Normal 8-15 [facility] Comment on above: Order Comment: Speci men Type: BLOOD SPECIMENOrdering Facility: [facility] Address: [address] [place] [address] Performed By: #### 1 9123-9, 77600-6 ####[facility]ITALCLIA [id number] [place] [address] [place] Calcium [Mass/Vol] 9.1 mg/dL Normal 8.5-10.2 [facility] Comment on above: Order Comment: Speci men Type: BLOOD SPECIMENOrdering Facility: [facility] Address: [address] [place] [address] Performed By: #### 1 9123-9, 23033-3 ####[facility] LABORATORYCLIA [id number] [place] [address] [place] Chloride [Moles/Vol] 101 mmol/L Normal 98-107 [facility] Comment on above: Order Comment: Speci men Type: BLOOD SPECIMENOrdering Facility: [facility] Address: [address] [place] [address] Performed By: #### 1 9123-9, 51099-4 ####[facility] LABORATORYCLIA [id number] [place] [address] [place] CO2 [Moles/Vol] 26 mmol/L Normal 22-30 [facility] Comment on above: Order Comment: Speci men Type: BLOOD SPECIMENOrdering Facility: [facility] Address: [address] [place] [address] Performed By: #### 1 9123-9, 02091-1 ####[facility] LABORATORYCLIA [id number] [place] [address] [place] Creatinine [Mass/Vol] 1.02 mg/dL High 0.58-0.96 [facility] Comment on above: Order Comment: Speci men Type: BLOOD SPECIMENOrdering Facility: [facility] Address: [address] [place] [address] Performed By: #### 1 9123-9, 27818-9 ####[facility] LABORATORYCLIA [id number] [place] [address] [place] Creatinine and Glomerular filtration rate.predicted panel (S/P/Bld) 63 mL/min/1.73m??? Normal >=60 [facility] Comment on above: Order Comment: Speci men Type: BLOOD SPECIMENOrdering Facility: [facility] Address: [address] [place] [address] Result Comment: Tuyet mated Glomerular Filtration Rate (eGFR) is calculated using the 2020 CKD-EPI creatinine equation. This equation utilizes serum creatinine, sex, and age as parameters. The creatinine assay has traceable calibration to isotope dilution-mass spectrometry. Refer to KDIGO guidelines for clinical interpretation. In patients with unstable renal function, e.g. those with acute kidney injury, the eGFR may not accurately reflect actual GFR. Performed By: #### 1 9123-9, 71973-8 ####[facility] LABORATORYCLIA [id number] [place] [address] [place] Glucose [Mass/Vol] 122 mg/dL High 74-99 [facility] Comment on above: Order Comment: Speci [facility] Type: BLOOD SPECIMENOrdering Facility: [facility] Address: [address] [place] [address] Result Comment: The Citizen [place] Diabetes Association (ADA) provides guidance for cutoff values for fasting glucose and random glucose. The ADA defines fasting as no caloric intake for at least 8 hours. Fasting plasma glucose results between 100 to 125 mg/dL indicate increased risk for diabetes (prediabetes).Fasting plasma glucose results greater than or equal to 126 mg/dL meet the criteria for diagnosis of diabetes. In the absence of unequivocal hyperglycemia, results should be confirmed by repeat testing. In a patient with classic symptoms of hyperglycemia or hyperglycemic crisis, random plasma glucose results greater than or equal to 200 mg/dL meet the criteria for diagnosis of diabetes.Reference: Standards of Medical Care in Diabetes 2016, [place] Diabetes Association. Diabetes Care. 2016.39(Suppl 1). Performed By: #### 1 9123-9, 81656-8 ####[facility] HOSPITALIA [id number] [place] [address] [place] Phosphate [Mass/Vol] 2.6 mg/dL Low 2.7-4.8 [facility] Comment on above: Order Comment: Nicolle phipps Type: BLOOD SPECIMENOrdering Facility: [facility] Address: [address] [place] [address] Performed By: #### 1 91239, ####[facility] HOSPITALIA [id number] [place] [address] [place] Potassium [Moles/Vol] 4.6 mmol/L Normal 3.7-5.1 [facility] Comment on above: Order Comment: Nicolle phipps Type: BLOOD SPECIMENOrdering Facility: [facility] Address: [address] [place] [address] Performed By: #### 1 9123-9, ####[facility] HOSPITALIA [id number] [place] [address] [place] Sodium [Moles/Vol] 138 mmol/L Normal 136-144 [facility] Comment on above: Order Comment: Nicolle phipps Type: BLOOD SPECIMENOrdering Facility: [facility] Address: [address] [place] [address] Performed By: #### 1 9123-9, 26246-5 ####[facility] LABORATORYIA [id number] [place] [address] [place] Urea nitrogen [Mass/Vol] 27 mg/dL High 7-21 [facility] Comment on above: Order Comment: Speci men Type: BLOOD SPECIMENOrdering Facility: [facility] Address: [address] [place] [address] Performed By: #### 1 9123-9, 62779-6 ####[facility] LABORATORYCLIA [id number] [place] [address] [place] THERAPY NTon 12-21-2023 THERAPY NT Normal [facility] CASE MANAGEMon 12-20-2023 CASE MANAGEM Normal [facility] CASE MANAGEM Normal [facility] Magnesium SerPl-mCncon 12-19 Magnesium [Mass/Vol] 1.9 mg/dL Normal 1.7-2.3 [facility] Comment on above: Order Comment: Speci men Type: BLOOD SPECIMENOrdering Facility: [facility] Address: [address] [place] [address] Performed By: #### 1 9123-9, 06992-9 ####[facility] LABORATORYCLIA [id number] [place] [address] [facility] [place] NUTRITIONon 12-20-2023 NUTRITION Normal [facility] Renal function 2000 panelon 12-20-2023 Albumin [Mass/Vol] 3.8 g/dL Low 3.9-4.9 [facility] Comment on above: Order Comment: Speci men Type: BLOOD SPECIMENOrdering Facility: [facility] Address: [address] [place] [address] Performed By: #### 1 9123-9, 30667-7 ####[facility] LABORATORYCLIA [id number] [place] [address] [place] Anion gap [Moles/Vol] 15 mmol/L Normal 8-15 [facility] Comment on above: Order Comment: Speci men Type: BLOOD SPECIMENOrdering Facility: [facility] Address: [address] [place] [address] Performed By: #### 1 9123-9, 99583-1 ####[facility] LABORATORYCLIA [id number] [place] [address] [place] Calcium [Mass/Vol] 8.7 mg/dL Normal 8.5-10.2 [facility] Comment on above: Order Comment: Speci men Type: BLOOD SPECIMENOrdering Facility: [facility] Address: [address] [place] [address] Performed By: #### 1 9123-9, 26054-9 ####[facility] LABORATORYCLIA [id number] [place] [address] [place] Chloride [Moles/Vol] 99 mmol/L Normal 98-107 [facility] Comment on above: Order Comment: Speci men Type: BLOOD SPECIMENOrdering Facility: [facility] Address: [address] [place] [address] Performed By: #### 1 9123-9, 72633-9 ####[facility] LABORATORYCLIA [id number] [place] [address] [place] CO2 [Moles/Vol] 25 mmol/L Normal 22-30 [facility] Comment on above: Order Comment: Speci men Type: BLOOD SPECIMENOrdering Facility: [facility] Address: [address] [place] [address] Performed By: #### 1 9123-9, 16137-2 ####[facility] LABORATORYCLIA [id number] [place] [address] [place] Creatinine [Mass/Vol] 0.61 mg/dL Normal 0.58-0.96 [facility] Comment on above: Order Comment: Speci men Type: BLOOD SPECIMENOrdering Facility: [facility] Address: [address] [place] [address] Performed By: #### 1 9123-9, 58921-9 ####[facility] LABORATORYCLIA [id number] [place] [address] [place] Creatinine and Glomerular filtration rate.predicted panel (S/P/Bld) 102 mL/min/1.73m??? Normal >=60 [facility] Comment on above: Order Comment: Speci men Type: BLOOD SPECIMENOrdering Facility: [facility] Address: [address] [place] [address] Result Comment: Tuyet mated Glomerular Filtration Rate (eGFR) is calculated using the 2020 CKD-EPI creatinine equation. This equation utilizes serum creatinine, sex, and age as parameters. The creatinine assay has traceable calibration to isotope dilution-mass spectrometry. Refer to KDIGO guidelines for clinical interpretation. In patients with unstable renal function, e.g. those with acute kidney injury, the eGFR may not accurately reflect actual GFR. Performed By: #### 1 9123-9, 89364-9 ####[facility] LABORATORYCLIA [id number] [place] [address] [place] Glucose [Mass/Vol] 143 mg/dL High 74-99 [facility] Comment on above: Order Comment: Nicolle phipps Type: BLOOD SPECIMENOrdering Facility: [facility] Address: [address] [place] [address] Result Comment: The [place] Diabetes Association (ADA) provides guidance for cutoff values for fasting glucose and random glucose. The ADA defines fasting as no caloric intake for at least 8 hours. Fasting plasma glucose results between 100 to 125 mg/dL indicate increased risk for diabetes (prediabetes).Fasting plasma glucose results greater than or equal to 126 mg/dL meet the criteria for diagnosis of diabetes. In the absence of unequivocal hyperglycemia, results should be confirmed by repeat testing. In a patient with classic symptoms of hyperglycemia or hyperglycemic crisis, random plasma glucose results greater than or equal to 200 mg/dL meet the criteria for diagnosis of diabetes.Reference: Standards of Medical Care in Diabetes 2016, [place] Diabetes Association. Diabetes Care. 2016.39(Suppl 1). Performed By: #### 1 9123-9, 48532-3 ####[facility] LABORATORYCLIA [id number] [place] [address] [place] Phosphate [Mass/Vol] 3.1 mg/dL Normal 2.7-4.8 [facility] Comment on above: Order Comment: Nicolle phipps Type: BLOOD SPECIMENOrdering Facility: [facility] Address: [address] [place] [address] Performed By: #### 1 9123-9, 41604-8 ####[facility] LABORATORYCLIA [id number] [place] [address] [place] Potassium [Moles/Vol] 3.6 mmol/L Low 3.7-5.1 [facility] Comment on above: Order Comment: Speci men Type: BLOOD SPECIMENOrdering Facility: [facility] Address: [address] [place] [address] Performed By: #### 1 9123-9, 55968-5 ####[facility] LABORATORYCLIA [id number] [place] [address] [place] Sodium [Moles/Vol] 139 mmol/L Normal 136-144 [facility] Comment on above: Order Comment: Speci men Type: BLOOD SPECIMENOrdering Facility: [facility] Address: [address] [place] [address] Performed By: #### 1 9123-9, 94357-6 ####[facility] LABORATORYCLIA [id number] [place] [address] [place] Urea nitrogen [Mass/Vol] 17 mg/dL Normal 7-21 [facility] Comment on above: Order Comment: Speci men Type: BLOOD SPECIMENOrdering Facility: [facility] Address: [address] [place] [address] Performed By: #### 1 9123-9, 35687-8 ####[facility]ORATORYCLIA [id number] [place] [address] [place] SOCIAL WORKon 12-20-2023 SOCIAL WORK Normal [facility] ANES POSTPROC EVALon 024 ANES POSTPROC EVAL Normal [facility] ANES PRE-OPon 12-19-2023 ANES PRE-OP Normal [facility] BRIEF OP NOTon 12-19-2023 BRIEF OP NOT Normal [facility] CASE MANAGEMon 12-19-2023 CASE MANAGEM Normal [facility] Magnesium SerPl-mCncon 12-18 Magnesium [Mass/Vol] 1.8 mg/dL Normal 1.7-2.3 [facility] Comment on above: Order Comment: Speci men Type: BLOOD SPECIMENOrdering Facility: [facility] Address: [address] [place], [place] [address] Performed By: #### 1 9123-9, 99094-5, 8 ####[facility] LABORATORYCLIA [id number] [place] [address] [place] NURSING PROGon 12-19-2023 NURSING PROG Normal [facility] NURSING PROG Normal [facility] NUTRITIONon 12-19-2023 NUTRITION Normal [facility] OPERATIVE NOon 12-19-2023 OPERATIVE NO Normal [facility] Renal function 2000 panelon 12-19-2023 Albumin [Mass/Vol] 3.7 g/dL Low 3.9-4.9 [facility] Comment on above: Order Comment: Speci men Type: BLOOD SPECIMENOrdering Facility: [facility] Address: [address] [place] [address] Performed By: #### 1 9123-9, 90761-6, 2570-12 ####[facility] LABORATORYCLIA [id number] [place] [address] [place] Anion gap [Moles/Vol] 11 mmol/L Normal 8-15 [facility] Comment on above: Order Comment: Speci men Type: BLOOD SPECIMENOrdering Facility: [facility] Address: [address] [place] [address] Performed By: #### 1 9123-9, 70441-8, 2570-12 ####[facility] HOSPITALIA [id number] [place] [address] [place] Calcium [Mass/Vol] 8.9 mg/dL Normal 8.5-10.2 [facility] Comment on above: Order Comment: Speci men Type: BLOOD SPECIMENOrdering Facility: [facility] Address: [address] [place] [address] Performed By: #### 1 9123-9, 39048-6, 8 ####[facility] LABORATORYIA [id number] [place] [address] [place] Chloride [Moles/Vol] 102 mmol/L Normal 98-107 [facility] Comment on above: Order Comment: Speci men Type: BLOOD SPECIMENOrdering Facility: [facility] Address: [address] [place] [address] Performed By: #### 1 9123-9, 73589-7, 2570-12 ####[facility] LABORATORYCLIA [id number] [place] [address] [place] CO2 [Moles/Vol] 26 mmol/L Normal 22-30 [facility] Comment on above: Order Comment: Speci men Type: BLOOD SPECIMENOrdering Facility: [facility] Address: [address] [place] [address] Performed By: #### 1 9123-9, 48574-5, 2570-12 ####[facility] LABORATORYCLIA [id number] [place] [id number] [place] [address] [place] Creatinine [Mass/Vol] 0.83 mg/dL Normal 0.58-0.96 [facility] Comment on above: Order Comment: Speci men Type: BLOOD SPECIMENOrdering Facility: [facility] Address: [address] [place] [address] Performed By: #### 1 9123-9, 97875-3, 2570-12 ####[facility]ORATORYCLIA [id number] [place], [place] [id number] [place] [address] [facility] Creatinine and Glomerular filtration rate.predicted panel (S/P/Bld) 80 mL/min/1.73m??? Normal >=60 [facility] Comment on above: Order Comment: Speci men Type: BLOOD SPECIMENOrdering Facility: [facility] Address: [address] [place], [place] [address] Result Comment: Tuyet mated Glomerular Filtration Rate (eGFR) is calculated using the 2020 CKD-EPI creatinine equation. This equation utilizes serum creatinine, sex, and age as parameters. The creatinine assay has traceable calibration to isotope dilution-mass spectrometry. Refer to KDIGO guidelines for clinical interpretation. In patients with unstable renal function, e.g. those with acute kidney injury, the eGFR may not accurately reflect actual GFR. Performed By: #### 1 9123-9, 38484-7, 8 ####[facility]ORATORYCLIA [id number] [place] [address] [place] Glucose [Mass/Vol] 111 mg/dL High 74-99 [facility] Comment on above: Order Comment: Nicolle phipps Type: BLOOD SPECIMENOrdering Facility: [facility] Address: [address] [place] [address] Result Comment: The Citizen [place] Diabetes Association (ADA) provides guidance for cutoff values for fasting glucose and random glucose. The ADA defines fasting as no caloric intake for at least 8 hours. Fasting plasma glucose results between 100 to 125 mg/dL indicate increased risk for diabetes (prediabetes).Fasting plasma glucose results greater than or equal to 126 mg/dL meet the criteria for diagnosis of diabetes. In the absence of unequivocal hyperglycemia, results should be confirmed by repeat testing. In a patient with classic symptoms of hyperglycemia or hyperglycemic crisis, random plasma glucose results greater than or equal to 200 mg/dL meet the criteria for diagnosis of diabetes.Reference: Standards of Medical Care in Diabetes 2016, [place] Of [place] Diabetes Association. Diabetes Care. 2016.39(Suppl 1). Performed By: #### 1 9123-9, 45931-9, 2570-12 ####[facility] HOSPITALIA [id number] [place] [address] [place] Phosphate [Mass/Vol] 3.1 mg/dL Normal 2.7-4.8 [facility] Comment on above: Order Comment: Nicolle phipps Type: BLOOD SPECIMENOrdering Facility: [facility] Address: [address] [place] [address] Performed By: #### 1 9123-9, 56105-1, 8 ####[facility] HOSPITALIA [id number] [place] [address] [place] Potassium [Moles/Vol] 2.8 mmol/L Low 3.7-5.1 [facility] Comment on above: Order Comment: Nicolle men Type: BLOOD SPECIMENOrdering Facility: [facility] Address: [address] [place] [address] Performed By: #### 1 9123-9, 98289-4, 8 ####[facility] LABORATORYCLIA [id number] [place] [address] [place] Sodium [Moles/Vol] 139 mmol/L Normal 136-144 [facility] Comment on above: Order Comment: Speci men Type: BLOOD SPECIMENOrdering Facility: [facility] Address: [address] [place] [address] Performed By: #### 1 9123-9, 73687-0, 2571-8 ####[facility]ORATORYCLIA [id number] [place] [address] [place] Urea nitrogen [Mass/Vol] 18 mg/dL Normal 7-21 [facility] Comment on above: Order Comment: Speci men Type: BLOOD SPECIMENOrdering Facility: [facility] Address: [address] [place] [address] Performed By: #### 1 9123-9, 88229-7, 257-8 ####[facility]ORATORYCLIA [id number] [place] [address] [place] Trigl SerPl-mCncon Triglyceride [Mass/Vol] 145 mg/dL Normal <150 [facility] Comment on above: Order Comment: Speci men Type: BLOOD SPECIMENOrdering Facility: [facility] Address: [address] [place] [address] Result Comment: <150 mg/dL, Normal 150-199 mg/dL, Borderline high 200-499 mg/dL, High>499 mg/dL, Very highReference:1. National Cholesterol Education Program ATP III Guideline At-A-Glance Quick Desk Reference: National Heart, Lung, and Blood [place]. National Institutes of Health. 2001: NIH Publication No. 01-3305. Performed By: #### 1 9123-9, 67363-3, 257-8 ####[facility] LABORATORYCLIA [id number] [place] [address] [place] Triglyceride [Mass/Vol]on FASTING TIME 8 hrs Normal [facility] Comment on above: Order Comment: Speci men Type: BLOOD SPECIMENOrdering Facility: [facility] Address: [address] [place] [address] Performed By: #### 1 9123-9, 57348-1, 2571-8 ####[facility] LABORATORYCLIA [id number] [place] [address] [place] Basic metabolic 2000 panelon 12-18-2023 Anion gap [Moles/Vol] 13 mmol/L Normal 8-15 [facility] Comment on above: Order Comment: Speci men Type: BLOOD SPECIMENOrdering Facility: [facility] Address: [address] [place] [address] Performed By: #### 2 4321-2, 277-1 ####[facility] LABORATORYCLIA [id number] [place] [address] [place] Calcium [Mass/Vol] 9.0 mg/dL Normal 8.5-10.2 [facility] Comment on above: Order Comment: Speci men Type: BLOOD SPECIMENOrdering Facility: [facility] Address: [address] [place] [address] Performed By: #### 2 4321-2, 277- ####[facility] HOSPITALIA [id number] [place] [address] [place] Chloride [Moles/Vol] 105 mmol/L Normal 98-107 [facility] Comment on above: Order Comment: Speci men Type: BLOOD SPECIMENOrdering Facility: [facility] Address: [address] [place] [address] Performed By: #### 2 4321-2, 2776- ####[facility] LABORATORYCLIA [id number] [place] [address] [place] CO2 [Moles/Vol] 26 mmol/L Normal 22-30 [facility] Comment on above: Order Comment: Speci men Type: BLOOD SPECIMENOrdering Facility: [facility] Address: [address] [place] [address] Performed By: #### 2 4321-2, 2777-1 ####[facility] LABORATORYCLIA [id number] [place] [address] [place] [place] Creatinine [Mass/Vol] 0.73 mg/dL Normal 0.58-0.96 [facility] Comment on above: Order Comment: Nicolle phipps Type: BLOOD SPECIMENOrdering Facility: [facility] Address: [address] [place] [address] Performed By: #### 2 4321-2, 2777-1 ####[facility] LABORATORYCLIA [id number] [place] [address] [place] Creatinine and Glomerular filtration rate.predicted panel (S/P/Bld) 94 mL/min/1.73m??? Normal >=60 [facility] Comment on above: Order Comment: Nicolle phipps Type: BLOOD SPECIMENOrdering Facility: [facility] Address: [address] [place] [address] Result Comment: Tuyet mated Glomerular Filtration Rate (eGFR) is calculated using the 2020 CKD-EPI creatinine equation. This equation utilizes serum creatinine, sex, and age as parameters. The creatinine assay has traceable calibration to isotope dilution-mass spectrometry. Refer to KDIGO guidelines for clinical interpretation. In patients with unstable renal function, e.g. those with acute kidney injury, the eGFR may not accurately reflect actual GFR. Performed By: #### 2 4321-2, 2777- ####[facility] LABORATORYCLIA [id number] [place] [address] [place] Glucose [Mass/Vol] 94 mg/dL Normal 74-99 [facility] Comment on above: Order Comment: Nicolle phipps Type: BLOOD SPECIMENOrdering Facility: [facility] Address: [address] [place] [address] Result Comment: The [place] Diabetes Association (ADA) provides guidance for cutoff values for fasting glucose and random glucose. The ADA defines fasting as no caloric intake for at least 8 hours. Fasting plasma glucose results between 100 to 125 mg/dL indicate increased risk for diabetes (prediabetes).Fasting plasma glucose results greater than or equal to 126 mg/dL meet the criteria for diagnosis of diabetes. In the absence of unequivocal hyperglycemia, results should be confirmed by repeat testing. In a patient with classic symptoms of hyperglycemia or hyperglycemic crisis, random plasma glucose results greater than or equal to 200 mg/dL meet the criteria for diagnosis of diabetes.Reference: Standards of Medical Care in Diabetes 2016, [place] Diabetes Association. Diabetes Care. 2016.39(Suppl 1). Performed By: #### 2 4321-2, 2776- ####[facility] LABORATORYCLIA [id number] [place] [address] [place] Potassium [Moles/Vol] 3.0 mmol/L Low 3.7-5.1 [facility] Comment on above: Order Comment: Speci men Type: BLOOD SPECIMENOrdering Facility: [facility] Address: [address] [place] [address] Performed By: #### 2 4321-2, 2776-05 ####[facility] HOSPITALIA [id number] [address] [place] Sodium [Moles/Vol] 144 mmol/L Normal 136-144 [facility] Comment on above: Order Comment: Speci men Type: BLOOD SPECIMENOrdering Facility: [facility] Address: [address] [place], [place] [address] Performed By: #### 2 4321-2, 2776-05 ####[facility] HOSPITALIA [id number] [place] [id number] [place] Urea nitrogen [Mass/Vol] 9 mg/dL Normal 7-21 [facility] Comment on above: Order Comment: Speci men Type: BLOOD SPECIMENOrdering Facility: [facility] Address: [address] [place] [address] Performed By: #### 2 4321-2, 2776-05 ####[facility] LABORATORYIA [id number] [place] [address] [place] CASE MGT INIT ASSESon 2023 CASE MGT INIT [facility] Normal [facility] CBC W Auto Differential pane l (Bld)on 12-18-2023 Basophils (Bld) [#/Vol] 0.03 10*3/uL Normal <0.11 [facility] Comment on above: Order Comment: Speci men Type: BLOOD SPECIMENOrdering Facility: [facility] Address: [address] [place] [address] Performed By: #### 5 7021-8 ####[facility] LABORATORYCLIA [id number] [place] [address] [place] Basophils/100 WBC (Bld) 0.3 % Normal [facility] Comment on above: Order Comment: Speci men Type: BLOOD SPECIMENOrdering Facility: [facility] Address: [address] [place] [address] Performed By: #### 5 7021-8 ####[facility] LABORATORYCLIA [id number] [place] [id number] [place] Differential cell count method Nom (Bld) Auto Normal [facility] Comment on above: Order Comment: Speci men Type: BLOOD SPECIMENOrdering Facility: [facility] Address: [address] [place] [address] Performed By: #### 5 7021-8 ####[facility] HOSPITALIA [id number] [place] [address] [place] Eosinophils (Bld) [#/Vol] 0.10 10*3/uL Normal <0.46 [facility] Comment on above: Order Comment: Speci men Type: BLOOD SPECIMENOrdering Facility: [facility] Address: [address] [place] [address] Performed By: #### 5 7021-8 ####[facility] LABORATORYIA [id number] [facility] CENTERVDKIMBERLY [place] [id number] [place] Eosinophils/100 WBC (Bld) 1.0 % Normal [facility] Comment on above: Order Comment: Speci men Type: BLOOD SPECIMENOrdering Facility: [facility] Address: [address] [place] [address] Performed By: #### 5 7021-8 ####[facility] LABORATORYIA [id number] [place] [address] [place] Erythrocyte distribution width (RBC) [Ratio] 14.8 % Normal 11.5-15.0 [facility] Comment on above: Order Comment: Speci men Type: BLOOD SPECIMENOrdering Facility: [facility] Address: [address] [place] [address] Performed By: #### 5 7021-8 ####[facility] HOSPITALIA [id number] [place] [address] [place] Hematocrit (Bld) [Volume fraction] 41.0 % Normal 36.0-46.0 [facility] Comment on above: Order Comment: Speci men Type: BLOOD SPECIMENOrdering Facility: [facility] Address: [address] [place] [address] Performed By: #### 5 7021-8 ####[facility] HOSPITALIA [id number] [place] [address] [place] Hemoglobin (Bld) [Mass/Vol] 13.7 g/dL Normal 11.5-15.5 [facility] Comment on above: Order Comment: Speci men Type: BLOOD SPECIMENOrdering Facility: [facility] Address: [address] [place] [address] Performed By: #### 5 7021-8 ####[facility] HOSPITALIA [id number] [place] [address] [place] Immature granulocytes (Bld) [#/Vol] 0.03 10*3/uL Normal <0.10 [facility] Comment on above: Order Comment: Speci men Type: BLOOD SPECIMENOrdering Facility: [facility] Address: [address] [place] [address] Performed By: #### 5 7021-8 ####[facility] HOSPITALIA [id number] [place] [address] [place] Immature granulocytes/100 WBC (Bld) 0.3 % Normal [facility] Comment on above: Order Comment: Speci men Type: BLOOD SPECIMENOrdering Facility: [facility] Address: [address] [place] [address] Performed By: #### 5 7021-8 ####[facility] LABORATORYIA [id number] [place] [address] [place] Lymphocytes (Bld) [#/Vol] 0.64 10*3/uL Low 1.00-4.00 [facility] Comment on above: Order Comment: Speci men Type: BLOOD SPECIMENOrdering Facility: [facility] Address: [address] [place] [address] Performed By: #### 5 7021-8 ####[facility] LABORATORYCLIA [id number] [place] [address] [place] Lymphocytes/100 WBC (Bld) 6.6 % Normal [facility] Comment on above: Order Comment: Speci men Type: BLOOD SPECIMENOrdering Facility: [facility] Address: [address] [place] [address] Performed By: #### 5 7021-8 ####[facility] [id number] [place] [address] [place] MCH (RBC) [Entitic mass] 27.1 pg Normal 26.0-34.0 [facility] Comment on above: Order Comment: Speci men Type: BLOOD SPECIMENOrdering Facility: [facility] Address: [address] [place] [address] Performed By: #### 5 7021-8 ####[facility] HOSPITALIA [id number] [place] [id number] [place] MCHC (RBC) [Mass/Vol] 33.4 g/dL Normal 30.5-36.0 [facility] Comment on above: Order Comment: Speci men Type: BLOOD SPECIMENOrdering Facility: [facility] Address: [address] [place] [address] Performed By: #### 5 7021-8 ####[facility] HOSPITALIA [id number] [place] [id number] [place] MCV (RBC) [Entitic vol] 81.2 fL Normal 80.0-100.0 [facility] Comment on above: Order Comment: Speci men Type: BLOOD SPECIMENOrdering Facility: [facility] Address: [address] [place] [address] Performed By: #### 5 7021-8 ####[facility] LABORATORYCLIA [id number] [place] [address] [place] Monocytes (Bld) [#/Vol] 0.54 10*3/uL Normal <0.87 [facility] Comment on above: Order Comment: Speci men Type: BLOOD SPECIMENOrdering Facility: [facility] Address: [address] [place] [address] Performed By: #### 5 7021-8 ####[facility] LABORATORYCLIA [id number] [place] [address] [place] Monocytes/100 WBC (Bld) 5.6 % Normal [facility] Comment on above: Order Comment: Speci men Type: BLOOD SPECIMENOrdering Facility: [facility] Address: [address] [place] [address] Performed By: #### 5 7021-8 ####[facility] HOSPITALIA [id number] [place] [id number] [place] Neutrophils (Bld) [#/Vol] 8.37 10*3/uL High 1.45-7.50 [facility] Comment on above: Order Comment: Speci men Type: BLOOD SPECIMENOrdering Facility: [facility] Address: [address] [place] [address] Performed By: #### 5 7021-8 ####[facility] LABORATORYIA [id number] [place] [id number] [place] Neutrophils/100 WBC (Bld) 86.2 % Normal [facility] Comment on above: Order Comment: Speci men Type: BLOOD SPECIMENOrdering Facility: [facility] Address: [address] [place] [address] Performed By: #### 5 7021-8 ####[facility]ORATORYIA [id number] [place] [address] [place] Nucleated RBC (Bld) [#/Vol] 10*3/uL Normal <0.01 [facility] Comment on above: Order Comment: Speci men Type: BLOOD SPECIMENOrdering Facility: [facility] Address: [address] [place] [address] Performed By: #### 5 7021-8 ####[facility] HOSPITALIA [id number] [place] [address] [place] Nucleated RBC/100 WBC (Bld) [Ratio] 0.0 /100 WBC Normal [facility] Comment on above: Order Comment: Speci men Type: BLOOD SPECIMENOrdering Facility: [facility] Address: [address] [place] [address] Performed By: #### 5 7021-8 ####[facility] HOSPITALIA [id number] [place] [address] [place] Platelet mean volume (Bld) [Entitic vol] 9.6 fL Normal 9.0-12.7 [facility] Comment on above: Order Comment: Speci men Type: BLOOD SPECIMENOrdering Facility: [facility] Address: [address] [place] [address] Performed By: #### 5 7021-8 ####[facility] HOSPITALIA [id number] [place] [address] [place] Platelets (Bld) [#/Vol] 252 10*3/uL Normal 150-400 [facility] Comment on above: Order Comment: Speci men Type: BLOOD SPECIMENOrdering Facility: [facility] Address: [address] [place] [address] Performed By: #### 5 7021-8 ####[facility] HOSPITALIA [id number] [place] [address] [place] RBC (Bld) [#/Vol] 5.05 10*6/uL Normal 3.90-5.20 [facility] Comment on above: Order Comment: Speci men Type: BLOOD SPECIMENOrdering Facility: [facility] Address: [address] [place] [address] Performed By: #### 5 7021-8 ####[facility] LABORATORYIA [id number] [place] [address] [place] WBC (Bld) [#/Vol] 9.71 10*3/uL Normal 3.70-11.00 [facility] Comment on above: Order Comment: Speci men Type: BLOOD SPECIMENOrdering Facility: [facility] Address: [address] [place], [place] [address] [address] Performed By: #### 5 7021-8 ####[facility] LABORATORYCLIA [id number] [place] [address] [facility] [place] CONSULTon 12-18-2023 CONSULT Normal [facility] CONSULT [facility] CONSULT PROGon 12-18-2023 CONSULT PROG [facility] NURSING PROGon 12-18-2023 NURSING PROG [facility] NUTRITIONon 12-18-2023 NUTRITION [facility] Outside Recordson 12-18-2023 Outside Records [id number][facility] SerPl-mCncon 12-17 Phosphate [Mass/Vol] 2.5 mg/dL Low 2.7-4.8 [facility] Comment on above: Order Comment: Speci men Type: BLOOD SPECIMENOrdering Facility: [facility] Address: [address] [place] [address] Performed By: #### 2 4321-2, 2777-1 ####[facility]ORATORYCLIA [id number] [place] [address] [place] SOCIAL WORKon 12-18-2023 SOCIAL WORK [facility] THERAPY NTon 12-18-2023 THERAPY NT [facility] Basic metabolic 2000 panelon 12-17-2023 Anion gap [Moles/Vol] 11 mmol/L Normal 8-15 [facility] Comment on above: Order Comment: Speci men Type: BLOOD SPECIMENOrdering Facility: [facility] Address: [address] [place], [place] [address] [address] Performed By: #### 2 4321-2, 55042-7 ####[facility]ORATORYCLIA [id number] [place] [address] [place] Calcium [Mass/Vol] 8.5 mg/dL Normal 8.5-10.2 [facility] Comment on above: Order Comment: Speci men Type: BLOOD SPECIMENOrdering Facility: [facility] Address: [address] [place] [address] Performed By: #### 2 4321-2, ####[facility] LABORATORYCLIA [id number] [place] [address] [place] Chloride [Moles/Vol] 104 mmol/L Normal 98-107 [facility] Comment on above: Order Comment: Speci men Type: BLOOD SPECIMENOrdering Facility: [facility] Address: [address] [place] [address] Performed By: #### 2 4321-2, ####[facility] LABORATORYIA [id number] [place] [address] [place] CO2 [Moles/Vol] 29 mmol/L Normal 22-30 [facility] Comment on above: Order Comment: Speci men Type: BLOOD SPECIMENOrdering Facility: [facility] Address: [address] [place] [address] Performed By: #### 2 1-2, ####[facility] LABORATORYIA [id number] [place] [address] [place] Creatinine [Mass/Vol] 0.74 mg/dL Normal 0.58-0.96 [facility] Comment on above: Order Comment: Speci men Type: BLOOD SPECIMENOrdering Facility: [facility] Address: [address] [place] [address] Performed By: #### 2 1-2, ####[facility] LABORATORYIA [id number] [place] [address] [place] Creatinine and Glomerular filtration rate.predicted panel (S/P/Bld) 92 mL/min/1.73m??? Normal >=60 [facility] Comment on above: Order Comment: Speci men Type: BLOOD SPECIMENOrdering Facility: [facility] Address: [address] [place] [address] Result Comment: Tuyet mated Glomerular Filtration Rate (eGFR) is calculated using the 2020 CKD-EPI creatinine equation. This equation utilizes serum creatinine, sex, and age as parameters. The creatinine assay has traceable calibration to isotope dilution-mass spectrometry. Refer to KDIGO guidelines for clinical interpretation. In patients with unstable renal function, e.g. those with acute kidney injury, the eGFR may not accurately reflect actual GFR. Performed By: #### 2 432-, ####[facility] LABORATORYCLIA [id number] [place] [address] [place] Glucose [Mass/Vol] 91 mg/dL Normal 74-99 [facility] Comment on above: Order Comment: Nicolle phipps Type: BLOOD SPECIMENOrdering Facility: [facility] Address: [address] [place] [address] Result Comment: The Citizen [place] Diabetes Association (ADA) provides guidance for cutoff values for fasting glucose and random glucose. The ADA defines fasting as no caloric intake for at least 8 hours. Fasting plasma glucose results between 100 to 125 mg/dL indicate increased risk for diabetes (prediabetes).Fasting plasma glucose results greater than or equal to 126 mg/dL meet the criteria for diagnosis of diabetes. In the absence of unequivocal hyperglycemia, results should be confirmed by repeat testing. In a patient with classic symptoms of hyperglycemia or hyperglycemic crisis, random plasma glucose results greater than or equal to 200 mg/dL meet the criteria for diagnosis of diabetes.Reference: Standards of Medical Care in Diabetes 2016, [place] Diabetes Association. Diabetes Care. 2016.39(Suppl 1). Performed By: #### 2 432-, ####[facility] LABORATORYCLIA [id number] [place] [address] [place] Potassium [Moles/Vol] 2.8 mmol/L Low 3.7-5.1 [facility] Comment on above: Order Comment: Nicolle phipps Type: BLOOD SPECIMENOrdering Facility: [facility] Address: [address] [place] [address] Performed By: #### 2 432-, ####[facility]ORATORYCLIA [id number] [place] [address] [place] Sodium [Moles/Vol] 144 mmol/L Normal 136-144 [facility] Comment on above: Order Comment: Speci men Type: BLOOD SPECIMENOrdering Facility: [facility] Address: [address] [place] [address] Performed By: #### 2 4321-2, ####[facility]ORATORYCLIA [id number] [place] [address] [place] Urea nitrogen [Mass/Vol] 13 mg/dL Normal 7- [facility] Comment on above: Order Comment: Speci men Type: BLOOD SPECIMENOrdering Facility: [facility] Address: [address] [place] [address] Performed By: #### 2 4321-2, ####[facility]ORATORYCLIA [id number] [place] [address] [place] CONSULTon 12-17-2023 CONSULT Normal [facility] Magnesium SerPl-mCncon 12-16 Magnesium [Mass/Vol] 1.7 mg/dL Normal 1.7-2.3 [facility] Comment on above: Order Comment: Speci men Type: BLOOD SPECIMENOrdering Facility: [facility] Address: [address] [place] [address] Performed By: #### 2 4321-2, ####[facility]ORATORYCLIA [id number] [place] [address] [place] THERAPY NTon 12-17-2023 THERAPY NT Normal [facility] Basic metabolic 2000 panelon 12-16-2023 Anion gap [Moles/Vol] 15 mmol/L Normal 8-15 [facility] Comment on above: Order Comment: Speci men Type: BLOOD SPECIMENOrdering Facility: [facility] Address: [address] [place] [address] Performed By: #### 2 4321-2 ####[facility]ORATORYCLIA [id number] [place] [address] [place] Calcium [Mass/Vol] 8.4 mg/dL Low 8.5-10.2 [facility] Comment on above: Order Comment: Speci men Type: BLOOD SPECIMENOrdering Facility: [facility] Address: [address] [place] [address] Performed By: #### 2 4321-2 ####[facility]ORATORYCLIA [id number] [place] [address] [place] Chloride [Moles/Vol] 103 mmol/L Normal 98-107 [facility] Comment on above: Order Comment: Speci men Type: BLOOD SPECIMENOrdering Facility: [facility] Address: [address] [place] [address] Performed By: #### 2 4321-2 ####[facility]ORATORYCLIA [id number] [place] [address] [place] CO2 [Moles/Vol] 26 mmol/L Normal 22-30 [facility] Comment on above: Order Comment: Speci men Type: BLOOD SPECIMENOrdering Facility: [facility] Address: [address] [place] [address] Performed By: #### 2 4321-2 ####[facility]ORATORYCLIA [id number] [place] [address] [place] Creatinine [Mass/Vol] 0.81 mg/dL Normal 0.58-0.96 [facility] Comment on above: Order Comment: Speci men Type: BLOOD SPECIMENOrdering Facility: [facility] Address: [address] [place] [address] Performed By: #### 2 4321-2 ####[facility]ORATORYCLIA [id number] [place] [address] [place] Creatinine and Glomerular filtration rate.predicted panel (S/P/Bld) 83 mL/min/1.73m??? Normal >=60 [facility] Comment on above: Order Comment: Speci men Type: BLOOD SPECIMENOrdering Facility: [facility] Address: [address] [place] [address] Result Comment: Tuyet mated Glomerular Filtration Rate (eGFR) is calculated using the 2020 CKD-EPI creatinine equation. This equation utilizes serum creatinine, sex, and age as parameters. The creatinine assay has traceable calibration to isotope dilution-mass spectrometry. Refer to KDIGO guidelines for clinical interpretation. In patients with unstable renal function, e.g. those with acute kidney injury, the eGFR may not accurately reflect actual GFR. Performed By: #### 2 4321-2 ####[facility]ORATORYCLIA [id number] [place] [address] [place] Glucose [Mass/Vol] 70 mg/dL Low 74-99 [facility] Comment on above: Order Comment: Speci men Type: BLOOD SPECIMENOrdering Facility: [facility] Address: [address] [place] [id number] Result Comment: The [place] Diabetes Association (ADA) provides guidance for cutoff values for fasting glucose and random glucose. The ADA defines fasting as no caloric intake for at least 8 hours. Fasting plasma glucose results between 100 to 125 mg/dL indicate increased risk for diabetes (prediabetes).Fasting plasma glucose results greater than or equal to 126 mg/dL meet the criteria for diagnosis of diabetes. In the absence of unequivocal hyperglycemia, results should be confirmed by repeat testing. In a patient with classic symptoms of hyperglycemia or hyperglycemic crisis, random plasma glucose results greater than or equal to 200 mg/dL meet the criteria for diagnosis of diabetes.Reference: Standards of Medical Care in Diabetes 2016, [place] Diabetes Association. Diabetes Care. 2016.39(Suppl 1). Performed By: #### 2 4321-2 ####[facility]ORATORYCLIA [id number] [place] [address] [place] Potassium [Moles/Vol] 3.2 mmol/L Low 3.7-5.1 [facility] Comment on above: Order Comment: Speci men Type: BLOOD SPECIMENOrdering Facility: [facility] Address: [address] [place] [address] Performed By: #### 2 4321-2 ####[facility]ORATORYCLIA [id number] [place] [address] [place] Sodium [Moles/Vol] 144 mmol/L Normal 136-144 [facility] Comment on above: Order Comment: Speci men Type: BLOOD SPECIMENOrdering Facility: [facility] Address: [address] [place] [address] Performed By: #### 2 4321-2 ####[facility]ORATORYIA [id number] [place] [address] [place] Urea nitrogen [Mass/Vol] 18 mg/dL Normal - [facility] Comment on above: Order Comment: Speci men Type: BLOOD SPECIMENOrdering Facility: [facility] Address: [address] [place] [address] Performed By: #### 2 4321-2 ####[facility] HOSPITALIA [id number] [place] [address] [place] ED NOTEon 12-16-2023 ED NOTE HNO ID: [id number] Author: ENRRIQUE KIM RN Service: ? Author Type: Registered Nurse Type: ED Notes Filed: 12/16/2023 01:18 Note Text: Pt ambulated to the bathroom with a steady gait. Normal [facility] ED PROV NOTEon 12-16-2023 ED PROV NOTE Normal [facility] HISTORY PHYSICALon HISTORY PHYSICAL Normal [facility] NUTRITIONon 12-16-2023 NUTRITION Normal [facility] CBC W Auto Differential pane l (Bld)on 12-15-2023 Basophils (Bld) [#/Vol] 0.04 10*3/uL Normal <0.11 [facility] Comment on above: Order Comment: Speci men Type: BLOOD SPECIMENOrdering Facility: [facility] Address: [address] [place] [address] Performed By: #### 5 7021-8 ####[facility] LABORATORYIA [id number] [place] [address] [place] Basophils/100 WBC (Bld) 0.7 % Normal [facility] Comment on above: Order Comment: Speci men Type: BLOOD SPECIMENOrdering Facility: [facility] Address: [address] [place] [address] Performed By: #### 5 7021-8 ####[facility]ORATORYIA [id number] [place] [address] [place] Differential cell count method Nom (Bld) Auto Normal [facility] Comment on above: Order Comment: Speci men Type: BLOOD SPECIMENOrdering Facility: [facility] Address: [address] [place] [address] Performed By: #### 5 7021-8 ####[facility] LABORATORYCLIA [id number] [place] [address] [place] Eosinophils (Bld) [#/Vol] 0.04 10*3/uL Normal <0.46 [facility] Comment on above: Order Comment: Speci men Type: BLOOD SPECIMENOrdering Facility: [facility] Address: [address] [place] [address] Performed By: #### 5 7021-8 ####[facility]ORYIA [id number] [place] [address] [place] Eosinophils/100 WBC (Bld) 0.7 % Normal [facility] Comment on above: Order Comment: Speci men Type: BLOOD SPECIMENOrdering Facility: [facility] Address: [address] [place] [address] Performed By: #### 5 7021-8 ####[facility]ORATORYIA [id number] [address] [place] Erythrocyte distribution width (RBC) [Ratio] 14.6 % Normal 11.5-15.0 [facility] Comment on above: Order Comment: Speci men Type: BLOOD SPECIMENOrdering Facility: [facility] Address: [address] [place] [address] Performed By: #### 5 7021-8 ####[facility]ORYIA [id number] [address] [place] Hematocrit (Bld) [Volume fraction] 39.2 % Normal 36.0-46.0 [facility] Comment on above: Order Comment: Speci men Type: BLOOD SPECIMENOrdering Facility: [facility] Address: [address] [place] [address] Performed By: #### 5 7021-8 ####[facility] LABORATORYCLIA [id number] [place] [address] [place] Hemoglobin (Bld) [Mass/Vol] 13.1 g/dL Normal 11.5-15.5 [facility] Comment on above: Order Comment: Speci men Type: BLOOD SPECIMENOrdering Facility: [facility] Address: [address] [place] [address] Performed By: #### 5 7021-8 ####[facility] LABORATORYCLIA [id number] [facility] [place] [address] [place] Immature granulocytes (Bld) [#/Vol] 10*3/uL Normal <0.10 [facility] Comment on above: Order Comment: Speci men Type: BLOOD SPECIMENOrdering Facility: [facility] Address: [address] [place] [address] Performed By: #### 5 7021-8 ####[facility]ORYIA [id number] [place] [address] [place] Immature granulocytes/100 WBC (Bld) 0.3 % Normal [facility] Comment on above: Order Comment: Speci men Type: BLOOD SPECIMENOrdering Facility: [facility] Address: [address] [place] [address] Performed By: #### 5 7021-8 ####[facility]ATORYIA [id number] [place] [id number] [place] Lymphocytes (Bld) [#/Vol] 0.66 10*3/uL Low 1.00-4.00 [facility] Comment on above: Order Comment: Speci men Type: BLOOD SPECIMENOrdering Facility: [facility] Address: [address] [place] [address] Performed By: #### 5 7021-8 ####[facility]ATORYIA [id number] [place] [address] [place] Lymphocytes/100 WBC (Bld) 11.5 % Normal [facility] Comment on above: Order Comment: Speci men Type: BLOOD SPECIMENOrdering Facility: [facility] Address: [address] [place] [address] Performed By: #### 5 7021-8 ####[facility] HOSPITALIA [id number] [place] [address] [place] MCH (RBC) [Entitic mass] 27.3 pg Normal 26.0-34.0 [facility] Comment on above: Order Comment: Speci men Type: BLOOD SPECIMENOrdering Facility: [facility] Address: [address] [place] [address] Performed By: #### 5 7021-8 ####[facility]ITALIA [id number] [address] [place] MCHC (RBC) [Mass/Vol] 33.4 g/dL Normal 30.5-36.0 [facility] Comment on above: Order Comment: Speci men Type: BLOOD SPECIMENOrdering Facility: [facility] Address: [address] [place] [address] Performed By: #### 5 7021-8 ####[facility] [id number] [address] [place] MCV (RBC) [Entitic vol] 81.7 fL Normal 80.0-100.0 [facility] Comment on above: Order Comment: Speci men Type: BLOOD SPECIMENOrdering Facility: [facility] Address: [address] [place] [address] Performed By: #### 5 7021-8 ####[facility]ITALIA [id number] [address] [place] Monocytes (Bld) [#/Vol] 0.43 10*3/uL Normal <0.87 [facility] Comment on above: Order Comment: Speci men Type: BLOOD SPECIMENOrdering Facility: [facility] Address: [address] [place] [address] Performed By: #### 5 7021-8 ####[facility]ITALIA [id number] [address] [place] Monocytes/100 WBC (Bld) 7.5 % Normal [facility] Comment on above: Order Comment: Speci men Type: BLOOD SPECIMENOrdering Facility: [facility] Address: [address] [place] [address] Performed By: #### 5 7021-8 ####[facility] LABORATORYCLIA [id number] [place] [address] [place] Neutrophils (Bld) [#/Vol] 4.56 10*3/uL Normal 1.45-7.50 [facility] Comment on above: Order Comment: Speci men Type: BLOOD SPECIMENOrdering Facility: [facility] Address: [address] [place] [address] Performed By: #### 5 7021-8 ####[facility]ITALIA [id number] [place] [address] [place] Neutrophils/100 WBC (Bld) 79.3 % Normal [facility] Comment on above: Order Comment: Speci men Type: BLOOD SPECIMENOrdering Facility: [facility] Address: [address] [place] [address] Performed By: #### 5 7021-8 ####[facility]ITALIA [id number] [place] [address] [place] Nucleated RBC (Bld) [#/Vol] 10*3/uL Normal <0.01 [facility] Comment on above: Order Comment: Speci men Type: BLOOD SPECIMENOrdering Facility: [facility] Address: [address] [place] [address] Performed By: #### 5 7021-8 ####[facility]ORATORYCLIA [id number] [place] [address] [place] Nucleated RBC/100 WBC (Bld) [Ratio] 0.0 /100 WBC Normal [facility] Comment on above: Order Comment: Speci men Type: BLOOD SPECIMENOrdering Facility: [facility] Address: [address] [place] [address] Performed By: #### 5 7021-8 ####[facility]ORATORYIA [id number] [place] [address] [place] Platelet mean volume (Bld) [Entitic vol] 9.6 fL Normal 9.0-12.7 [facility] Comment on above: Order Comment: Speci men Type: BLOOD SPECIMENOrdering Facility: [facility] Address: [address] [place] [address] Performed By: #### 5 7021-8 ####[facility]ATORYIA [id number] [place] [address] [place] Platelets (Bld) [#/Vol] 315 10*3/uL Normal 150-400 [facility] Comment on above: Order Comment: Speci men Type: BLOOD SPECIMENOrdering Facility: [facility] Address: [address] [place] [address] Performed By: #### 5 7021-8 ####[facility]ITALIA [id number] [place] [address] [place] RBC (Bld) [#/Vol] 4.80 10*6/uL Normal 3.90-5.20 [facility] Comment on above: Order Comment: Speci men Type: BLOOD SPECIMENOrdering Facility: [facility] Address: [address] [place] [address] Performed By: #### 5 7021-8 ####[facility]ITALIA [id number] [place] [address] [place] WBC (Bld) [#/Vol] 5.75 10*3/uL Normal 3.70-11.00 [facility] Comment on above: Order Comment: Speci men Type: BLOOD SPECIMENOrdering Facility: [facility] Address: [address] [place] [address] Performed By: #### 5 7021-8 ####[facility]ORATORYIA [id number] [place] [address] [place] CNPNon 12-15-2023 CNPN Normal [facility] CT ABD/PEL W IVCONon 024 CT ABD/PEL W IVCON Normal [facility] Comprehensive metabolic 2000 panelon 12-15-2023 Albumin [Mass/Vol] 4.3 g/dL Normal 3.9-4.9 [facility] Comment on above: Order Comment: Speci men Type: BLOOD SPECIMENOrdering Facility: [facility] Address: [address] [place] [address] Performed By: #### 2 4323-8, 3040-3, ####[facility]ORATORYCLIA [id number] [place] [address] [place] ALP [Catalytic activity/Vol] 114 U/L Normal 34-123 [facility] Comment on above: Order Comment: Speci men Type: BLOOD SPECIMENOrdering Facility: [facility] Address: [address] [place] [address] Performed By: #### 2 4323-8, 0-3, ####[facility]ORATORYCLIA [id number] [place] [address] [place] ALT [Catalytic activity/Vol] 15 U/L Normal 7-38 [facility] Comment on above: Order Comment: Speci men Type: BLOOD SPECIMENOrdering Facility: [facility] Address: [facility] [place] [address] Performed By: #### 2 4323-8, 0-3, ####[facility]ORATORYCLIA [id number] [place] [address] [place] Anion gap [Moles/Vol] 19 mmol/L High 8-15 [facility] Comment on above: Order Comment: Speci men Type: BLOOD SPECIMENOrdering Facility: [facility] Address: [address] [place] [address] Performed By: #### 2 4323-8, 3040-3, ####[facility]ATORYIA [id number] [place] [address] [place] AST [Catalytic activity/Vol] 18 U/L Normal 13-35 [facility] Comment on above: Order Comment: Speci men Type: BLOOD SPECIMENOrdering Facility: [facility] Address: [address] [place], [place] [address] Performed By: #### 2 4323-8, 3, ####[facility]ORATORYCLIA [id number] [place] [address] [place] Bilirubin [Mass/Vol] 0.6 mg/dL Normal 0.2-1.3 [facility] Comment on above: Order Comment: Speci men Type: BLOOD SPECIMENOrdering Facility: [facility] Address: [address] [place] [address] Performed By: #### 2 4323-8, 3, ####[facility] LABORATORYCLIA [id number] [place] [address] [place] Calcium [Mass/Vol] 9.2 mg/dL Normal 8.5-10.2 [facility] Comment on above: Order Comment: Speci men Type: BLOOD SPECIMENOrdering Facility: [facility] Address: [address] [place] [address] Performed By: #### 2 4323-8, 3, ####[facility]ATORYIA [id number] [place] [address] [place] Chloride [Moles/Vol] 97 mmol/L Low 98-107 [facility] Comment on above: Order Comment: Speci men Type: BLOOD SPECIMENOrdering Facility: [facility] Address: [address] [place] [address] Performed By: #### 2 4323-8, 3, ####[facility]ORATORYCLIA [id number] [place] [address] [place] CO2 [Moles/Vol] 25 mmol/L Normal 22-30 [facility] Comment on above: Order Comment: Speci men Type: BLOOD SPECIMENOrdering Facility: [facility] Address: [address] [place] [address] Performed By: #### 2 4323-8, 3, ####[facility] LABORATORYCLIA [id number] [place] [address] [place] Creatinine [Mass/Vol] 0.85 mg/dL Normal 0.58-0.96 [facility] Comment on above: Order Comment: [facility] Type: BLOOD SPECIMENOrdering Facility: [facility] Address: [address] [place] [address] Performed By: #### 2 4323-8, 0-3, ####[facility] LABORATORYCLIA [id number] [place] [address] [place] Creatinine and Glomerular filtration rate.predicted panel (S/P/Bld) 78 mL/min/1.73m??? Normal >=60 [facility] Comment on above: Order Comment: [facility] Type: BLOOD SPECIMENOrdering Facility: [facility] Address: [address] [place] [address] Result Comment: Tuyet mated Glomerular Filtration Rate (eGFR) is calculated using the 2020 CKD-EPI creatinine equation. This equation utilizes serum creatinine, sex, and age as parameters. The creatinine assay has traceable calibration to isotope dilution-mass spectrometry. Refer to KDIGO guidelines for clinical interpretation. In patients with unstable renal function, e.g. those with acute kidney injury, the eGFR may not accurately reflect actual GFR. Performed By: #### 2 4323-8, 0-3, ####[facility] LABORATORYCLIA [id number] [place] [address] [place] Glucose [Mass/Vol] 71 mg/dL Low 74-99 [facility] Comment on above: Order Comment: [facility] Type: BLOOD SPECIMENOrdering Facility: [facility] Address: [address] [place] [address] Result Comment: The Citizen [place] Diabetes Association (ADA) provides guidance for cutoff values for fasting glucose and random glucose. The ADA defines fasting as no caloric intake for at least 8 hours. Fasting plasma glucose results between 100 to 125 mg/dL indicate increased risk for diabetes (prediabetes).Fasting plasma glucose results greater than or equal to 126 mg/dL meet the criteria for diagnosis of diabetes. In the absence of unequivocal hyperglycemia, results should be confirmed by repeat testing. In a patient with classic symptoms of hyperglycemia or hyperglycemic crisis, random plasma glucose results greater than or equal to 200 mg/dL meet the criteria for diagnosis of diabetes.Reference: Standards of Medical Care in Diabetes 2016, Citizen [place] Diabetes Association. Diabetes Care. 2016.39(Suppl 1). Performed By: #### 2 4323-8, 3040-3, ####[facility]ORATORYCLIA [id number] [place] [address] [place] Potassium [Moles/Vol] 3.2 mmol/L Low 3.7-5.1 [facility] Comment on above: Order Comment: Speci men Type: BLOOD SPECIMENOrdering Facility: [facility] Address: [address] [place], [place] [address] Performed By: #### 2 4323-8, 3039-3, ####[facility]ORATORYCLIA [id number] [place] [address] [place] Protein [Mass/Vol] 7.1 g/dL Normal 6.3-8.0 [facility] Comment on above: Order Comment: Speci men Type: BLOOD SPECIMENOrdering Facility: [facility] Address: [address] [place], [place] [address] Performed By: #### 2 4323-8, 0-3, ####[facility]ORATORYCLIA [id number] [place] [address] [place] Sodium [Moles/Vol] 141 mmol/L Normal 136-144 [facility] Comment on above: Order Comment: Speci men Type: BLOOD SPECIMENOrdering Facility: [facility] Address: [address] [place], [place] [address] Performed By: #### 2 4323-8, 0-3, ####[facility]ORATORYCLIA [id number] [place] [address] [place] Urea nitrogen [Mass/Vol] 25 mg/dL High 7-21 [facility] Comment on above: Order Comment: Speci men Type: BLOOD SPECIMENOrdering Facility: [facility] Address: [address] [place] [address] Performed By: #### 2 4323-8, 3040-3, ####[facility] HOSPITALIA [id number] [place] [address] [place] ECG COMPLETEon 12-15-2023 ECG COMPLETE Normal [facility] ED NOTEon 12-15-2023 ED NOTE HNO ID: [id number] Author: ENRRIQUE KIM RN Service: ? Author Type: Registered Nurse Type: ED Notes Filed: 12/15/2023 23:38 Note Text: Received report from Laura RIVERA. Pt care assumed. Normal [facility] ED NOTE Normal [facility] ED Triage Noteon 12-15-2023 ED Triage Note Normal [facility] Lipase SerPl-cCncon 12-15-19 24 Lipase [Catalytic activity/Vol] 26 U/L Normal 16-61 [facility] Comment on above: Order Comment: Speci men Type: BLOOD SPECIMENOrdering Facility: [facility] Address: [address] [place] [address] Performed By: #### 2 4323-8, 3039-3, ####[facility] H[facility]ITALIA [id number] [place] [address] [place] Magnesium SerPl-mCncon 12-14 Magnesium [Mass/Vol] 2.2 mg/dL Normal 1.7-2.3 [facility] Comment on above: Order Comment: Speci men Type: BLOOD SPECIMENOrdering Facility: [facility] Address: [address] [place] [address] Performed By: #### 2 4323-8, 3040-3, ####[facility] HOSPITALIA [id number] [place] [address] [place] Urinalysis complete panel (U )on 12-15-2023 Bilirubin Ql (U) Negative Normal Negative [facility] Comment on above: Order Comment: Speci men Type: URINE SPECIMENOrdering Facility: [facility] Address: [address] [place], [place] [address] Performed By: #### 2 4356-8 ####[facility] [id number] [place] [address] [place] Clarity (Unsp spec) Clear Normal Clear [facility] Comment on above: Order Comment: Speci men Type: URINE SPECIMENOrdering Facility: [facility] Address: [address] [place] [address] Performed By: #### 2 4356-8 ####[facility] [id number] [place] [address] [place] Color (U) Light Yellow Normal yellow [facility] Comment on above: Order Comment: Speci men Type: URINE SPECIMENOrdering Facility: [facility] Address: [address] [place] [address] Performed By: #### 2 4356-8 ####[facility] [id number] [place] [id number] [place] Epithelial cells LM.HPF (Urine sed) [#/Area] Few Normal [facility] Comment on above: Order Comment: Speci men Type: URINE SPECIMENOrdering Facility: [facility] Address: [address] [place] [address] Performed By: #### 2 4356-8 ####[facility] [id number] [place] [address] [place] Glucose Test strip (U) [Mass/Vol] Trace Normal Trace, Negative [facility] Comment on above: Order Comment: Speci men Type: URINE SPECIMENOrdering Facility: [facility] Address: [address] [place] [address] Performed By: #### 2 4356-8 ####[facility] [id number] [place] [address] [place] Hemoglobin Ql (U) Negative Normal Negative, Trace [facility] Comment on above: Order Comment: Speci men Type: URINE SPECIMENOrdering Facility: [facility] Address: [address] [place] [address] Performed By: #### 2 4356-8 ####[facility] [id number] [place] [address] [place] Ketones Ql (U) 2+ Abnormal Negative, Trace [facility] Comment on above: Order Comment: Speci men Type: URINE SPECIMENOrdering Facility: [facility] Address: [address] [place] [address] Performed By: #### 2 4356-8 ####[facility] [id number] [place], [place] [id number] [place] [address] [place] Leukocyte esterase Test strip Ql (U) Negative Normal Negative, 25 Ian/uL [facility] Comment on above: Order Comment: Speci men Type: URINE SPECIMENOrdering Facility: [facility] Address: [address] [place] [address] Performed By: #### 2 4356-8 ####[facility] [id number] [place] [address] [place] Nitrite Ql (U) Negative Normal Negative [facility] Comment on above: Order Comment: Speci men Type: URINE SPECIMENOrdering Facility: [facility] Address: [address] [place] [address] Performed By: #### 2 4356-8 ####[facility] [id number] [place] [address] [place] pH (U) 6.5 [pH] Normal 5.0-8.0 [facility] Comment on above: Order Comment: Speci men Type: URINE SPECIMENOrdering Facility: [facility] Address: [address] [place] [address] Performed By: #### 2 4356-8 ####[facility] [id number] [place] [address] [place] Protein (U) [Mass/Vol] Trace Normal Trace , Negative [facility] Comment on above: Order Comment: Speci men Type: URINE SPECIMENOrdering Facility: [facility] Address: [address] [place] [address] Performed By: #### 2 4356-8 ####[facility] [id number] [place] [address] [place] RBC LM.HPF (Urine sed) [#/Area] 0-3 /HPF Normal 0-3 /HPF [facility] Comment on above: Order Comment: Speci men Type: URINE SPECIMENOrdering Facility: [facility] Address: [address] [place] [address] Performed By: #### 2 4356-8 ####[facility] [id number] [place] [address] [place] Specific gravity (U) [Rel density] >1.050 High 1.005-1.030 [facility] Comment on above: Order Comment: Speci men Type: URINE SPECIMENOrdering Facility: [facility] Address: [address] [place] [address] Performed By: #### 2 4356-8 ####[facility] [id number] [place] [address] [place] Urobilinogen Ql (U) Normal Normal Normal [facility] Comment on above: Order Comment: Speci men Type: URINE SPECIMENOrdering Facility: [facility] Address: [address] [place] [address] Performed By: #### 2 4356-8 ####[facility] [id number] [place] [id number] [place] WBC LM.HPF (Urine sed) [#/Area] 0-5 /HPF Normal 0-5 /HPF [facility] Comment on above: Order Comment: Speci men Type: URINE SPECIMENOrdering Facility: [facility] Address: [address] [place] [address] Performed By: #### 2 4356-8 ####[facility] [id number] [place] [address] [place] CNOVon 12-14-2023 CNOV Normal [facility] ECG COMPLETEon 12-12-2023 ECG COMPLETE Normal [facility] Study observation Alberto cruz 12-12-2023 A31 Gastrointestinal Endoscopy Patient Name: Zack Snow Procedure Date: 12/12/2023 2:20 PM Date of : 1960 Admit Type: Outpatient Age: 63 Room: [address] Gender: Female 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 Refer to note in patient chart for documentation of history and physical. Referring Physician: Sara Horan MD (Referring MD) Medicines: Fentanyl 100 micrograms IV, Midazolam 7 mg IV, Benzocaine spray Complications: No immediate complications. Requesting Provider: Procedure: Pre-Anesthesia Assessment: - Prior to the procedure, a History and Physical was performed, and patient medications and allergies were reviewed. The patient's tolerance of previous anesthesia was also reviewed. The risks and benefits of the procedure and the sedation options and risks were discussed with the patient. All questions were answered, and informed consent was obtained. Prior Anticoagulants: The patient has taken no anticoagulant or antiplatelet agents. ASA Grade Assessment: III - A patient with severe systemic disease. After reviewing the risks and benefits, the patient was deemed in satisfactory condition to undergo the procedure. After obtaining informed consent, the endoscope was passed under direct vision. Throughout the procedure, the patient's blood pressure, pulse, and oxygen saturations were monitored continuously. The Endoscope was introduced through the mouth, and advanced to the second part of duodenum. The upper GI endoscopy was accomplished without difficulty. The patient tolerated the procedure well. Moderate Sedation: The administration of moderate sedation was initiated at 14:39 PM. Moderate (conscious) sedation was administered by the nurse and supervised by the endoscopist. The following parameters were monitored: oxygen saturation, heart rate, blood pressure, and response to care. Findings: Esophagogastric landmarks were identified: the Z-line was found at 39 cm, the upper extent of the gastric folds was found at 40 cm and the site of hiatal narrowing was found at 40 cm from the incisors. A diverticulum with a large opening was found in the proximal esophagus. Diffuse, yellow plaques were found in the entire esophagus. Diffuse moderate inflammation characterized by adherent blood, congestion (edema) and erythema was found in the entire examined stomach. Biopsies were taken with a cold forceps for histology. Bilious fluid was found in the stomach. A single 7 mm sessile polyp with no stigmata of recent bleeding was found on the lesser curvature of the stomach. Biopsies were taken with a cold forceps for histology. Evidence of a pyloroplasty was found in the pylorus. This was characterized by congestion and edema. The examined duodenum was normal. Biopsies for histology were taken with a cold forceps for evaluation of celiac disease. A guidewire was placed and the scope was withdrawn. Dilation was performed in the entire esophagus with a Savary dilator with no resistance at 16 mm. The dilation site was examined following endoscope reinsertion and showed mild mucosal disruption. Impression: - Esophagogastric landmarks identified. 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 - Esophageal plaques were found, consistent with candidiasis. - Gastritis. Biopsied. - Bilious gastric fluid. - A single gastric polyp. Biopsied. - A pyloroplasty was found, characterized by congestion and edema. - Normal examined duodenum. Biopsied. - Dilation performed in the entire esophagus to mild mucosal disruption at the distal esophagus. Estimated Blood Loss: Estimated blood loss was minimal. Recommendation: - Patient has a contact number available for emergencies. The signs and symptoms (more content not included)... PROVATION [facility] Radiology Study observation (narrative) [facility] HISTORY PHYSICALon HISTORY PHYSICAL Normal [facility] NURSING PROGon 12-12-2023 NURSING PROG Normal [facility] SURGICAL PATHOLOGYon 024 CASE REPORT Normal [facility] Comment on above: Order Comment: Speci men Type: TISSUE SPECIMENOrdering Facility: [facility] Address: [address] [place] [address] Result Comment: [facility] Pathology Report Case: [id number] Provider: Sara Horan MD Collected: 12/12/2023 02:50 PMOrdering Location: Gastroenterology Received: 12/12/2023 07:22 PMPathologist: Selam Armando MDSpecimens: A) - Small Bowel, Duodenum, Biopsy, r/o celiac B) - Stomach, Polyp, Biopsy C) - Stomach, Biopsy, r/o h pylori Performed By: #### S ####[facility] LABCLIA [id number] [address] [place] FINAL DIAGNOSIS Normal [facility] Comment on above: Order Comment: Speci men Type: TISSUE SPECIMENOrdering Facility: [facility] Address: [address] [place] [address] Result Comment: A. D uodenum, biopsy:- Duodenal mucosa with no diagnostic alteration.B. Stomach, polypectomy:- Hyperplastic polyp.C. Stomach, biopsy:- Gastric antral and oxyntic mucosa with no diagnostic alteration.- No morphologic evidence of Helicobacter pylori microorganisms. Performed By: #### S ####[facility] LABCLIA [id number] [address] [place] FINAL PERFORMING LAB Normal [facility] Comment on above: Order Comment: Speci men Type: TISSUE SPECIMENOrdering Facility: [facility] Address: [address] [place] [address] Result Comment: Diag nostic interpretation performed at [facility], [address] [place] [address] CLIA# [id number] Director: Anoop Mauricio M.D. Performed By: #### S ####[facility] LABCLIA [id number] [address] [place] GROSS DESCRIPTION Normal [facility] Comment on above: Order Comment: Speci men Type: TISSUE SPECIMENOrdering Facility: [facility] Address: [address] [place] [address] Result Comment: A. S mall Bowel, Duodenum, BiopsyReceived in formalin are two pieces of franklin, soft tissue aggregating to 0.6 x 0.2 x 0.2 cm. Totally submitted in one cassette.B. Stomach, Polyp, BiopsyReceived in formalin are two pieces of franklin, soft tissue aggregating to 1.0 x 0.3 x 0.2 cm. Totally submitted in one cassette.C. Stomach, BiopsyReceived in formalin are multiple pieces of franklin, soft tissue aggregating to 1.3 x 0.3 x 0.2 cm. Totally submitted in one cassettes.Gross examination performed at [facility], [address] [place], [place] [address]OO December 12, 2023 10:58 PM Performed By: #### S ####[facility] LABCLIA [id number] [id number] OF [facility] Upper GI endoscopyon 024 Upper GI endoscopy Normal [facility] CNOVon 12-07-2023 CNOV Normal [facility] Outside Recordson 12-07-2023 Outside Records [id number] [facility] CNOVon 12-06-2023 CNOV Normal [facility] CNPNon 12-05-2023 CNPN Normal [facility] Comprehensive metabolic 2000 panelon 12-05-2023 Albumin [Mass/Vol] 4.2 g/dL 3.9 - 4.9 g/dL [facility] ALP [Catalytic activity/Vol] 127 U/L High 34 - 123 U/L [facility] ALT [Catalytic activity/Vol] 25 U/L 7 - 38 U/L [facility] Anion gap [Moles/Vol] 15 mmol/L 8 - 15 mmol/L [facility] AST [Catalytic activity/Vol] 22 U/L 13 - 35 U/L [facility] Bilirubin [Mass/Vol] 0.5 mg/dL 0.2 - 1 .3 mg/dL [facility] Calcium [Mass/Vol] 9.6 mg/dL 8.5 - 10. 2 mg/dL [facility] Chloride [Moles/Vol] 103 mmol/L 98 - 10 7 mmol/L [facility] CO2 [Moles/Vol] 27 mmol/L 22 - 30 mmol/L [facility] Creatinine [Mass/Vol] 1.07 mg/dL High 0.58 - 0.96 mg/dL [facility] GFR/1.73 sq M.predicted among non-blacks MDRD (S/P/Bld) [Vol rate/Area] 59 mL/min/{1.73_m2} Low - PINF [facility] Comment on above: Estimated Glomerular Filtration Rate (eGFR) is calculated using the 2020 CKD-EPI creatinine equation. This equation utilizes serum creatinine, sex, and age as parameters. The creatinine assay has traceable calibration to isotope dilution-mass spectrometry. Refer to KDIGO guidelines for clinical interpretation. In patients with unstable renal function, e.g. those with acute kidney injury, the eGFR may not accurately reflect actual GFR. Glucose [Mass/Vol] 108 mg/dL High 74 - 99 mg/dL [facility] Comment on above: The [place] Diabete s Association (ADA) provides guidance for cutoff values for fasting glucose and random glucose. The ADA defines fasting as no caloric intake for at least 8 hours. Fasting plasma glucose results between 100 to 125 mg/dL indicate increased risk for diabetes (prediabetes). Fasting plasma glucose results greater than or equal to 126 mg/dL meet the criteria for diagnosis of diabetes. In the absence of unequivocal hyperglycemia, results should be confirmed by repeat testing. In a patient with classic symptoms of hyperglycemia or hyperglycemic crisis, random plasma glucose results greater than or equal to 200 mg/dL meet the criteria for diagnosis of diabetes. Reference: Standards of Medical Care in Diabetes 2016, [place] Diabetes Association. Diabetes Care. 2016.39(Suppl 1). Potassium [Moles/Vol] 3.6 mmol/L Low 3.7 - 5.1 mmol/L [facility] Protein [Mass/Vol] 6.7 g/dL 6.3 - 8.0 g/dL [facility] Sodium [Moles/Vol] 145 mmol/L High 136 - 144 mmol/L [facility] Urea nitrogen [Mass/Vol] 27 mg/dL High 7 - 21 mg/dL [facility] Albumin [Mass/Vol] 4.2 g/dL Normal 3.9-4.9 [facility] Comment on above: Order Comment: Speci men Type: BLOOD SPECIMENOrdering Facility: [facility] Address: [address] [place] [address] Performed By: #### 2 4323-8, 3016-3, 24743-0 ####[facility] LABCLIA [id number] [place] [address] [place] ALP [Catalytic activity/Vol] 127 U/L High 34-123 [facility] Comment on above: Order Comment: Speci men Type: BLOOD SPECIMENOrdering Facility: [facility] Address: [address] [place] [address] Performed By: #### 2 4323-8, 6-3, 10413-1 ####[facility] LABCLIA [id number] [place] [address] [place] ALT [Catalytic activity/Vol] 25 U/L Normal 7-38 [facility] Comment on above: Order Comment: Speci men Type: BLOOD SPECIMENOrdering Facility: [facility] Address: [address] [place] [address] Performed By: #### 2 4323-8, 3015-3, 40546-2 ####[facility] LABCLIA [id number] [place] [address] [place] Anion gap [Moles/Vol] 15 mmol/L Normal 8-15 [facility] Comment on above: Order Comment: Speci men Type: BLOOD SPECIMENOrdering Facility: [facility] Address: [address] [place] [address] Performed By: #### 2 4323-8, 3, 65219-5 ####[facility] LABCLIA [id number] [place] [address] [place] AST [Catalytic activity/Vol] 22 U/L Normal 13-35 [facility] Comment on above: Order Comment: Speci men Type: BLOOD SPECIMENOrdering Facility: [facility] Address: [address] [place], [place] [address] Performed By: #### 2 4323-8, 3015-3, 83701-5 ####[facility] LABCLIA [id number] [place] [address] [place] Bilirubin [Mass/Vol] 0.5 mg/dL Normal 0.2-1.3 [facility] Comment on above: Order Comment: Speci men Type: BLOOD SPECIMENOrdering Facility: [facility] Address: [address] [place] [address] Performed By: #### 2 4323-8, 3016-3, 31330-6 ####[facility] LABCLIA [id number] [address] [address] [place] Calcium [Mass/Vol] 9.6 mg/dL Normal 8.5-10.2 [facility] Comment on above: Order Comment: Speci men Type: BLOOD SPECIMENOrdering Facility: [facility] Address: [address] [place], [place] [address] Performed By: #### 2 4323-8, 3015-3, 90721-5 ####[facility] LABCLIA [id number] [place] [address] [place] Chloride [Moles/Vol] 103 mmol/L Normal 98-107 [facility] Comment on above: Order Comment: Speci men Type: BLOOD SPECIMENOrdering Facility: [facility] Address: [address] [place] [address] Performed By: #### 2 4323-8, 3015-3, 49903-5 ####[facility] LABCLIA [id number] [place] [address] [place] CO2 [Moles/Vol] 27 mmol/L Normal 22-30 [facility] Comment on above: Order Comment: Speci men Type: BLOOD SPECIMENOrdering Facility: [facility] Address: [address] [place] [address] Performed By: #### 2 4323-8, 3015-3, 88660-3 ####[facility] LABCLIA [id number] [place] [address] [place] Creatinine [Mass/Vol] 1.07 mg/dL High 0.58-0.96 [facility] Comment on above: Order Comment: Speci men Type: BLOOD SPECIMENOrdering Facility: [facility] Address: [address] [place] [address] Performed By: #### 2 4323-8, 3016-3, 08016-5 ####[facility] LABIA [id number] [place] [address] [place] Creatinine and Glomerular filtration rate.predicted panel (S/P/Bld) 59 mL/min/1.73m??? Low >=60 [facility] Comment on above: Order Comment: Nicolle phipps Type: BLOOD SPECIMENOrdering Facility: [facility] Address: [address] [place] [address] Result Comment: Tuyet mated Glomerular Filtration Rate (eGFR) is calculated using the 2020 CKD-EPI creatinine equation. This equation utilizes serum creatinine, sex, and age as parameters. The creatinine assay has traceable calibration to isotope dilution-mass spectrometry. Refer to KDIGO guidelines for clinical interpretation. In patients with unstable renal function, e.g. those with acute kidney injury, the eGFR may not accurately reflect actual GFR. Performed By: #### 2 4323-8, 3016-3, 43268-3 ####[facility] LABIA [id number] [place] [address] [place] Glucose [Mass/Vol] 108 mg/dL High 74-99 [facility] Comment on above: Order Comment: Nicolle phipps Type: BLOOD SPECIMENOrdering Facility: [facility] Address: [address] [place] [address] Result Comment: The [place] Diabetes Association (ADA) provides guidance for cutoff values for fasting glucose and random glucose. The ADA defines fasting as no caloric intake for at least 8 hours. Fasting plasma glucose results between 100 to 125 mg/dL indicate increased risk for diabetes (prediabetes).Fasting plasma glucose results greater than or equal to 126 mg/dL meet the criteria for diagnosis of diabetes. In the absence of unequivocal hyperglycemia, results should be confirmed by repeat testing. In a patient with classic symptoms of hyperglycemia or hyperglycemic crisis, random plasma glucose results greater than or equal to 200 mg/dL meet the criteria for diagnosis of diabetes.Reference: Standards of Medical Care in Diabetes 2016, [place] Diabetes Association. Diabetes Care. 2016.39(Suppl 1). Performed By: #### 2 4323-8, 301-3, 31202-6 ####[facility] LABCLIA [id number] [address] [address] [place] Potassium [Moles/Vol] 3.6 mmol/L Low 3.7-5.1 [facility] Comment on above: Order Comment: Speci men Type: BLOOD SPECIMENOrdering Facility: [facility] Address: [address] [place] [address] Performed By: #### 2 4323-8, 3015-3, 53176-5 ####[facility] LABCLIA [id number] [place] [address] [place] Protein [Mass/Vol] 6.7 g/dL Normal 6.3-8.0 [facility] Comment on above: Order Comment: Speci men Type: BLOOD SPECIMENOrdering Facility: [facility] Address: [address] [place] [address] Performed By: #### 2 4323-8, 3015-3, 22184-6 ####[facility] LABCLIA [id number] [place] [address] [place] Sodium [Moles/Vol] 145 mmol/L High 136-144 [facility] Comment on above: Order Comment: Speci men Type: BLOOD SPECIMENOrdering Facility: [facility] Address: [address] [place] [address] Performed By: #### 2 4323-8, 3015-3, 97320-7 ####[facility] LABCLIA [id number] [address] [address] [place] Urea nitrogen [Mass/Vol] 27 mg/dL High 7-21 [facility] Comment on above: Order Comment: Speci men Type: BLOOD SPECIMENOrdering Facility: [facility] Address: [address] [place], [place] [address] Performed By: #### 2 4323-8, 3015-3, 33661-7 ####[facility] LABCLIA [id number] [place] [address] [place] Laboratory - Chemistry and C hemistry - challengeon 12-05-2023 TSH Qn 0.370 m[IU]/L [facility] Prealbumin [Mass/Vol] 14 mg/dL Low 17 - 3 6 mg/dL [facility] No Panel Informationon 12-04 Interpretation and review of laboratory results Abnormal [facility] Prealb SerPl-mCncon 12-05-19 24 Prealbumin [Mass/Vol] 14 mg/dL Low 17-36 [facility] Comment on above: Order Comment: Speci men Type: BLOOD SPECIMENOrdering Facility: [facility] Address: [address] [place] [address] Performed By: #### 2 4323-8, 3016-3, 79912-2 ####[facility] LABCLIA [id number] [place] [address] [place] TSH Qnon 12-05-2023 Interpretation and review of laboratory results Normal [facility] TSH SerPl-aCncon 12-05-2023 TSH Qn 0.370 m[IU]/L Normal 0.270-4.200 [facility] Comment on above: Order Comment: Speci men Type: BLOOD SPECIMENOrdering Facility: [facility] Address: [address] [place] [address] Performed By: #### 2 4323-8, 3016-3, 32830-6 ####[facility] LABCLIA [id number] [place] [address] [place] CNOVon 11-29-2023 CNOV Normal [facility] Coding Summaryon 11-25-2023 Coding Summary Normal [facility] CNOVon 11-22-2023 CNOV Normal [facility] CNOV Normal [facility] RF videography Hypopharynx a nd Esophagus Views W liquid and paste contrast PO during swallowingon 11-22-2023 * * *Final Report* * * DATE OF EXAM: Nov 22 2023 8:32AM HGX [id number] - XR MOD BARIUM SWALLOW W SPEECH / PROCEDURE REASON: Chronic pulmonary aspiration, sequela * * * * Physician Interpretation * * * * MODIFIED ESOPHAGRAM BY SPEECH PATHOLOGY 11/22/2023 8:32 AM RESULT: Fluoroscopy was provided for an oropharyngeal phase swallowing examination performed by Speech Pathology. Please refer to the report by the Speech Pathologist in [facility]. Oral contrast was administered. Contrast: ORAL: 30 ml of VARIBAR THIN ORAL: 30 ml of VARIBAR NECTAR ORAL: 10 ml of VARIBAR PUDDING Fluoroscopy radiation summary: Fluoroscopy time: 4:24 (min:sec). Air kerma: 40.3 mGy. DIVISION OF RADIOLOGY Provider, Abel Hardy - 11/22/2023 * * *Final Report* * * DATE OF EXAM: Nov 22 2023 8:32AM HGX 5377 - XR MOD BARIUM SWALLOW W SPEECH / PROCEDURE REASON: Chronic pulmonary aspiration, sequela * * * * Physician Interpretation * * * * MODIFIED ESOPHAGRAM BY SPEECH PATHOLOGY 11/22/2023 8:32 AM RESULT: Fluoroscopy was provided for an oropharyngeal phase swallowing examination performed by Speech Pathology. Please refer to the report by the Speech Pathologist in [facility]. Oral contrast was administered. Contrast: ORAL: 30 ml of VARIBAR THIN ORAL: 30 ml of VARIBAR NECTAR ORAL: 10 ml of VARIBAR PUDDING Fluoroscopy radiation summary: Fluoroscopy time: 4:24 (min:sec). Air kerma: 40.3 mGy. IMPRESSION IMPRESSION: SWALLOWING EVALUATION PERFORMED BY SPEECH PATHOLOGY. Veterinary X Ray Operator: PSCB Transcribe Date/Time: Nov 22 2023 8:48A Dictated by : HUSEYIN MCMANUS MD This examination was interpreted and the report reviewed and electronically signed by: HUSEYIN MCMANUS MD on Nov 22 2023 8:49AM EST [facility] Radiology Study observation (narrative) [facility] RF videography Hypopharynx a nd Esophagus Views W liquid and paste contrast PO during swallowingOrdered By: [facility] Provider on 11-22-2023 [facility] XR MOD BARIUM SWALLOW W SPEE Marilee 11-22-2023 XR MOD BARIUM SWALLOW W SPEECH Normal [facility] .Auto Diff 1on 11-14-2023 Auto [place]if[place] % 5 % Normal 1-12 [facility] Comment on above: Performed By: #### 1 [id number], [id number], [id number], [id number], [id number], [id number] ####[facility] (DEFAULT)[address] [place] [address] Baso Abs# 0.1 x10 Normal 0.0-0.2 [facility] Comment on above: Performed By: #### 1 [id number], [id number], [id number], [id number], 64960232, 9600133 ####[facility] (DEFAULT)[address] [place] [address] Basophils/100 WBC (Bld) 0.5 % Normal 0.2-2.0 [facility] Comment on above: Performed By: #### 1 [id number], 6922649, [id number], [id number], 75056034, 5307927 ####[facility] (DEFAULT)[address] [place] [address] Eos Abs# 0.0 x10 Normal 0.0-0.4 [facility] Comment on above: Performed By: #### 1 [id number], 0760707, [id number], 0106255945, 76676961, 8530071 ####[facility] (DEFAULT)[address] [place] [address] Eosinophils/100 WBC (Bld) 0.2 % Low 0.9-4.0 [facility] Comment on above: Performed By: #### 1 [id number], [id number], [id number], [id number], 11332638, 4226759 ####[facility] (DEFAULT)[address] [place] [address] Lymph Abs# 0.5 x10 Low 1.3-2.9 [facility] Comment on above: Performed By: #### 1 [id number], [id number], [id number], [id number], 74155275, 2862101 ####[facility] (DEFAULT)[address] [place] [address] Lymphocytes/100 WBC (Bld) 5 % Low 14-48 [facility] Comment on above: Performed By: #### 1 [id number], 5988682, [id number], [id number], 64528075, 9856244 ####[facility] (DEFAULT)[address] [place] [address] Mifflin Abs# 0.5 x10 Normal 0.0-0.8 [facility] Comment on above: Performed By: #### 1 [id number], 1419001, 8902711448, 7183090348, 75692536, 6764164 ####[facility] (DEFAULT)[address] [place] [address] Neut Abs# 8.7 x10 Normal 1.5-9.2 [facility] Comment on above: Performed By: #### 1 [id number], 9973994, [id number], [id number], 85547119, 0033561 ####[facility] (DEFAULT)[address] [place] [address] Neutrophils/100 WBC (Bld) 89 % High 44-88 [facility] Comment on above: Performed By: #### 1 [id number], 7550346, [id number], 2099262492, 61838300, 9011991 ####[facility] (DEFAULT)[address] [place] [address] CBC w/ Auto Diffon 4 Erythrocyte distribution width (RBC) [Ratio] 15.4 % High 11.5-15.0 [facility] Comment on above: Performed By: #### 1 [id number], 4366404, 6847035048, 8780321379, 08776749, 5211664 ####[facility] (DEFAULT)[address] [place] [address] Hematocrit (Bld) [Volume fraction] 37.4 % Normal 33.7-40.4 [facility] Comment on above: Performed By: #### 1 [id number], 8399849, 9982317582, 3723267096, 19632333, 6235847 ####[facility] (DEFAULT)[address] [place] [address] Hemoglobin (Bld) [Mass/Vol] 12.6 g/dL Normal 11.3-15.9 [facility] Comment on above: Performed By: #### 1 [id number], 2858251, 8404490541, 2485554500, 94309792, 6338821 ####[facility] (DEFAULT)[address] [place] [address] Man Diff? Auto Invalid Interpretation Code [facility] Comment on above: Performed By: #### 1 [id number], 2635624, 0152363168, 3863408015, 63579588, 3379720 ####[facility] (DEFAULT)[address] [place] [address] MCH (RBC) [Entitic mass] 28 pg Normal 24-34 [facility] Comment on above: Performed By: #### 1 [id number], 2365289, 0614621860, 4366617511, 68249888, 3372886 ####[facility] (DEFAULT)[address] [place] [address] MCHC (RBC) [Mass/Vol] 34 g/dL Normal 26-37 [facility] Comment on above: Performed By: #### 1 [id number], 0824383, 8425835988, 8947347745, 34171694, 9747485 ####[facility] (DEFAULT)[address] [place] [address]643 MCV (RBC) [Entitic vol] 81 fL Normal 81-100 [facility] Comment on above: Performed By: #### 1 [id number], 4165934, 3364167853, 4547297875, 67664678, 1527386 ####[facility] (DEFAULT)[address] [place] [address] Platelet 237 x10 Normal 138-427 [facility] Comment on above: Performed By: #### 1 685003991, 7865952, 5439067752, 5703411837, 88901206, 4129761 ####[facility] (DEFAULT)[address] [place] [address] Platelet mean volume (Bld) [Entitic vol] 7.9 fL Normal 6.3-10.2 [facility] Comment on above: Performed By: #### 1 000093602, 1646372, 4502967740, 6403291171, 95029656, 5705490 ####[facility] (DEFAULT)[address] [place] [address] RBC 4.61 x10 Normal 3.70-5.30 [facility] Comment on above: Performed By: #### 1 682865245, 9227511, 6925975875, 3737721670, 15448707, 1391174 ####[facility] (DEFAULT)[address] [place] [address] WBC 9.8 x10 Normal 3.5-10.5 [facility] Comment on above: Performed By: #### 1 275814199, 6552364, 9867317339, 7510205971, 33190067, 8651397 ####[facility] (DEFAULT)[address] [place] [address] CMP Standardon 11-14-2023 Breakpoint Chem Normal [facility] Comment on above: Performed By: #### 1 189154331, 2979059, 8004304818, 3652378369, 05087397, 1442129 ####[facility] (DEFAULT)[address] [place] [address] eGFR Non AA 48 mL/min/1.73m2 Invalid Interpretation Code [facility] Comment on above: Performed By: #### 1 [id number], 2589058, 0072374828, 6027985532, 83966301, 0270157 ####[facility] (DEFAULT)[address] [place] [address] eGFR AA 59 mL/min/1.73m2 Invalid Interpretation Code [facility] Comment on above: Performed By: #### 1 [id number], 3218853, 5023090583, 3051250720, 36229439, 5019397 ####[facility] (DEFAULT)[address] [place] [address] 95162 Albumin [Mass/Vol] 4.4 g/dL Normal 3.5-5.0 [facility] Comment on above: Performed By: #### 1 807008421, 3549236, 1479020455, 6942050263, 69437347, 6529953 ####[facility] (DEFAULT)[address] [place] [address] 10903 Alk Phos 96 IU/L High 32-91 [facility] Comment on above: Performed By: #### 1 786779315, 5805706, 7696628474, 5330479087, 96664784, 7369842 ####[facility] (DEFAULT)[address] [place] [address] 83198 ALT [Catalytic activity/Vol] 22.0 U/L Normal 14.0-54.0 [facility] Comment on above: Performed By: #### 1 030887926, 5224128, 0961246771, 7353804876, 19319068, 9082955 ####[facility] (DEFAULT)[address] [place] [address] 45199 AST [Catalytic activity/Vol] 31 U/L Normal 15-41 [facility] Comment on above: Performed By: #### 1 678613564, 9267018, 7169610868, 3654184831, 07698426, 8651870 ####[facility] (DEFAULT)[address] [place] [address] 99456 Bili Total 1.0 mg/dL Normal 0.3-1.2 [facility] Comment on above: Performed By: #### 1 516395696, 2484746, 0511560053, 6580922320, 77444232, 7133846 ####[facility] (DEFAULT)[address] [place] [address] 25331 Calcium [Mass/Vol] 9.2 mg/dL Normal 8.9-10.3 [facility] Comment on above: Performed By: #### 1 568109728, 6517219, 9061834299, 8719652398, 66464165, 9018871 ####[facility] (DEFAULT)[address] [place] [address] 09705 Chloride [Moles/Vol] 98 mmol/L Low 101-111 [facility] Comment on above: Performed By: #### 1 246133589, 3054446, 9576658471, 1390710808, 47645776, 5671544 ####[facility] (DEFAULT)[address] [place] [address] 54089 CO2 [Moles/Vol] 25 mmol/L Normal 21-32 [facility] Comment on above: Performed By: #### 1 545213651, 2152628, 2663987079, 0838851190, 51580155, 2045059 ####[facility] (DEFAULT)[address] [place] [address] 90228 Creatinine [Mass/Vol] 1.14 mg/dL Normal 0.60-1.30 [facility] Comment on above: Performed By: #### 1 356301180, 8392006, 9286336151, 9728459131, 23747076, 7317277 ####[facility] (DEFAULT)[address] [place] [address] 27168 Glucose [Mass/Vol] 123.0 mg/dL High 74.0-118.0 [facility] Comment on above: Performed By: #### 1 886901003, 7747234, 1835969470, 8048153280, 44297033, 4330308 ####[facility] (DEFAULT)[address] [place] [address] 15515 Potassium [Moles/Vol] 3.6 mmol/L Normal 3.6-5.1 [facility] Comment on above: Performed By: #### 1 042314626, 6497173, 3788228607, 9182434044, 72376363, 2054563 ####[facility] (DEFAULT)[address] [place] [address] 51972 Protein [Mass/Vol] 7.8 g/dL Normal 6.5-8.1 [facility] Comment on above: Performed By: #### 1 352720580, 9588856, 7448150249, 0862735583, 98695440, 4760170 ####[facility] (DEFAULT)[address] [place] [address] 67883 Sodium [Moles/Vol] 136.0 mmol/L Normal 136.0-144.0 [facility] Comment on above: Performed By: #### 1 681126694, 3471144, 9867067333, 4001219466, 83296869, 5016582 ####[facility] (DEFAULT)[address] [place] [address] 42165 Urea nitrogen [Mass/Vol] 34 mg/dL High 8- [facility] Comment on above: Performed By: #### 1 349253804, 7214601, 5234776291, 9002469848, 00102943, 0512518 ####[facility] (DEFAULT)[address] [place] [address] 56191 Albumin/Globulin [Mass ratio] 1.2 {ratio} Low 1.4-2.6 [facility] Comment on above: Performed By: #### 1 756702622, 5323409, 5536608266, 7436850328, 99313833, 3275376 ####[facility] (DEFAULT)[address] [place] [address] 19223 Anion gap [Moles/Vol] 16.6 mmol/L Normal 5.0-19.0 [facility] Comment on above: Performed By: #### 1 339850288, 9905090, 8420864918, 1928671569, 89958446, 2748776 ####[facility] (DEFAULT)[address] [place] [address] 91016 Globulin (S) [Mass/Vol] 3.4 g/dL Normal 1.5-4.3 [facility] Comment on above: Performed By: #### 1 737826870, 1537655, 2261788833, 8679745858, 69113333, 6737169 ####[facility] (DEFAULT)[address] [place] [address] 51166 Osmolality 281 mOsm/L Invalid Interpretation Code [facility] Comment on above: Performed By: #### 1 379797708, 0222425, 6344673682, 7654072898, 84126594, 6078528 ####[facility] (DEFAULT)[address] [place] [address] Urea nitrogen/Creatinine [Mass ratio] 29.8 mg/mg High 4.6-16.2 [facility] Comment on above: Performed By: #### 1 848146556, 6693673, 3938809249, 3744832360, 04547251, 8852386 ####[facility] (DEFAULT)[address] [place] [address] ED Clinical Summaryon 2023 ED Clinical Summary Normal [facility] ED Note - Physicianon 2023 ED Note - Physician [facility] ED Patient Education Noteon 11-14-2023 ED Patient Education Note Normal [facility] ED Patient Summaryon 024 ED Patient Summary Normal [facility] Extra Redon 11-14-2023 Tube Collected Yes Invalid Interpretation Code [facility] Comment on above: Performed By: #### 1 [id number], 9309905, 9350627509, 5330076620, 34021538, 2894321 ####[facility] (DEFAULT)[address] [place] [address] 20288 PTon 11-14-2023 INR Coag (PPP) [Relative time] 1.05 {INR} Normal 0.91-1.11 [facility] Comment on above: Performed By: #### 1 540494778, 5761896, 0405378358, 8614149149, 35703503, 1611539 ####[facility] (DEFAULT)[address] [place], [place] [address] PT 10.9 second(s) Normal 9.7-11.8 [facility] Comment on above: Performed By: #### 1 051072085, 1759540, 5794928338, 2448771716, 78645843, 6967734 ####[facility] (DEFAULT)[address] [place] [address] 68490 TnI HSon 11-14-2023 Troponin I High Sensitivity 3.6 pg/mL Normal <=15.0 [facility] Comment on above: Order Comment: To be done 1 hour after first Troponin HS Performed By: #### 5 [id number] ####[facility] (DEFAULT)[address] [place] [address] 75951 Troponin I High Sensitivity 3.5 pg/mL Normal <=15.0 [facility] Comment on above: Performed By: #### 1 091376743, 6563906, 5457977281, 5071683830, 69860672, 9122632 ####[facility] (DEFAULT)[address] [place] [address] 89064 XR Chest 1 View Frontalon XR Chest 1 View Frontal Normal [facility] ANES POSTPROC EVALon 024 ANES POSTPROC EVAL Normal [facility] ANES PRE-OPon 11-13-2023 ANES PRE-OP Normal [facility] BRIEF OP NOTon 11-13-2023 BRIEF OP NOT Normal [facility] OPERATIVE NOon 11-13-2023 OPERATIVE NO Normal [facility] CBC W Auto Differential pane l (Bld)on 11-08-2023 Basophils (Bld) [#/Vol] 0.03 10*3/uL Normal <0.11 [facility] Comment on above: Order Comment: Speci men Type: BLOOD SPECIMENOrdering Facility: [facility] Address: [address] [place] [address] Performed By: #### 5 7021-8 ####[facility] LABCLIA [id number] [place] [address] [place] Basophils/100 WBC (Bld) 0.5 % Normal [facility] Comment on above: Order Comment: Speci men Type: BLOOD SPECIMENOrdering Facility: [facility] Address: [address] [place] [address] Performed By: #### 5 7021-8 ####[facility] LABCLIA [id number] [place] [address] [place] Differential cell count method Nom (Bld) Auto Normal [facility] Comment on above: Order Comment: Speci men Type: BLOOD SPECIMENOrdering Facility: [facility] Address: [address] [place] [address] Performed By: #### 5 7021-8 ####[facility] LABCLIA [id number] [place] [address] [place] Eosinophils (Bld) [#/Vol] 0.09 10*3/uL Normal <0.46 [facility] Comment on above: Order Comment: Speci men Type: BLOOD SPECIMENOrdering Facility: [facility] Address: [address] [place] [address] Performed By: #### 5 7021-8 ####[facility] LABCLIA [id number] [place] [address] [place] Eosinophils/100 WBC (Bld) 1.6 % Normal [facility] Comment on above: Order Comment: Speci men Type: BLOOD SPECIMENOrdering Facility: [facility] Address: [address] [place] [address] Performed By: #### 5 7021-8 ####[facility] LABCLIA [id number] [place] [address] [place] Erythrocyte distribution width (RBC) [Ratio] 14.5 % Normal 11.5-15.0 [facility] Comment on above: Order Comment: Speci men Type: BLOOD SPECIMENOrdering Facility: [facility] Address: [address] [place] [address] Performed By: #### 5 7021-8 ####[facility] LABCLIA [id number] [place] [address] [place] Hematocrit (Bld) [Volume fraction] 39.4 % Normal 36.0-46.0 [facility] Comment on above: Order Comment: Speci men Type: BLOOD SPECIMENOrdering Facility: [facility] Address: [address] [place] [address] Performed By: #### 5 7021-8 ####[facility] LABCLIA [id number] [place] [address] [place] Hemoglobin (Bld) [Mass/Vol] 12.8 g/dL Normal 11.5-15.5 [facility] Comment on above: Order Comment: Speci men Type: BLOOD SPECIMENOrdering Facility: [facility] Address: [address] [place] [address] Performed By: #### 5 7021-8 ####[facility] LABCLIA [id number] [place] [address] [place] Immature granulocytes (Bld) [#/Vol] 10*3/uL Normal <0.10 [facility] Comment on above: Order Comment: Speci men Type: BLOOD SPECIMENOrdering Facility: [facility] Address: [address] [place] [address] Performed By: #### 5 7021-8 ####[facility] LABCLIA [id number] [place] [address] [place] Immature granulocytes/100 WBC (Bld) 0.2 % Normal [facility] Comment on above: Order Comment: Speci men Type: BLOOD SPECIMENOrdering Facility: [facility] Address: [address] [place] [address] Performed By: #### 5 7021-8 ####[facility] LABCLIA [id number] [place] [address] [place] Lymphocytes (Bld) [#/Vol] 0.79 10*3/uL Low 1.00-4.00 [facility] Comment on above: Order Comment: Speci men Type: BLOOD SPECIMENOrdering Facility: [facility] Address: [address] [place] [address] Performed By: #### 5 7021-8 ####[facility] LABCLIA [id number] [place] [address] [place] Lymphocytes/100 WBC (Bld) 14.1 % Normal [facility] Comment on above: Order Comment: Speci men Type: BLOOD SPECIMENOrdering Facility: [facility] Address: [address] [place] [address] Performed By: #### 5 7021-8 ####[facility] LABCLIA [id number] [place] [address] [place] MCH (RBC) [Entitic mass] 27.8 pg Normal 26.0-34.0 [facility] Comment on above: Order Comment: Speci men Type: BLOOD SPECIMENOrdering Facility: [facility] Address: [address] [place] [address] Performed By: #### 5 7021-8 ####[facility] LABCLIA [id number] [place] [address] [place] MCHC (RBC) [Mass/Vol] 32.5 g/dL Normal 30.5-36.0 [facility] Comment on above: Order Comment: Speci men Type: BLOOD SPECIMENOrdering Facility: [facility] Address: [address] [place] [address] Performed By: #### 5 7021-8 ####[facility] LABIA [id number] [place] [address] [place] MCV (RBC) [Entitic vol] 85.5 fL Normal 80.0-100.0 [facility] Comment on above: Order Comment: Speci men Type: BLOOD SPECIMENOrdering Facility: [facility] Address: [address] [place] [address] Performed By: #### 5 7021-8 ####[facility] LABCLIA [id number] [place] [address] [place] Monocytes (Bld) [#/Vol] 0.52 10*3/uL Normal <0.87 [facility] Comment on above: Order Comment: Speci men Type: BLOOD SPECIMENOrdering Facility: [facility] Address: [address] [id number] Performed By: #### 5 7021-8 ####[facility] LABCLIA [id number] [place] [address] [place] Monocytes/100 WBC (Bld) 9.3 % Normal [facility] Comment on above: Order Comment: Speci men Type: BLOOD SPECIMENOrdering Facility: [facility] Address: [address] [place] [address] Performed By: #### 5 7021-8 ####[facility] LABCLIA [id number] [place] [address] [place] Neutrophils (Bld) [#/Vol] 4.17 10*3/uL Normal 1.45-7.50 [facility] Comment on above: Order Comment: Speci men Type: BLOOD SPECIMENOrdering Facility: [facility] Address: [address] [place] [address] Performed By: #### 5 7021-8 ####[facility] LABCLIA [id number] [place] [address] [place] Neutrophils/100 WBC (Bld) 74.3 % Normal [facility] Comment on above: Order Comment: Speci men Type: BLOOD SPECIMENOrdering Facility: [facility] Address: [address] [place], [place] [address] Performed By: #### 5 7021-8 ####[facility] LABCLIA [id number] [place] [address] [place] Nucleated RBC (Bld) [#/Vol] 10*3/uL Normal <0.01 [facility] Comment on above: Order Comment: Speci men Type: BLOOD SPECIMENOrdering Facility: [facility] Address: [address] [place], [place] [address] Performed By: #### 5 7021-8 ####[facility] LABCLIA [id number] [place] [address] [place] Nucleated RBC/100 WBC (Bld) [Ratio] 0.0 /100 WBC Normal [facility] Comment on above: Order Comment: Speci men Type: BLOOD SPECIMENOrdering Facility: [facility] Address: [address] [place] [address] Performed By: #### 5 7021-8 ####[facility] LABCLIA [id number] [place] [address] [place] Platelet mean volume (Bld) [Entitic vol] 11.0 fL Normal 9.0-12.7 [facility] Comment on above: Order Comment: Speci men Type: BLOOD SPECIMENOrdering Facility: [facility] Address: [address] [place] [address] Performed By: #### 5 7021-8 ####[facility] LABIA [id number] [place] [address] [place] Platelets (Bld) [#/Vol] 247 10*3/uL Normal 150-400 [facility] Comment on above: Order Comment: Speci men Type: BLOOD SPECIMENOrdering Facility: [facility] Address: [address] [place] [address] Performed By: #### 5 7021-8 ####[facility] LABIA [id number] [place] [address] [place] RBC (Bld) [#/Vol] 4.61 10*6/uL Normal 3.90-5.20 [facility] Comment on above: Order Comment: Speci men Type: BLOOD SPECIMENOrdering Facility: [facility] Address: [address] [place] [address] Performed By: #### 5 7021-8 ####[facility] LABCLIA [id number] [place] [address] [place] WBC (Bld) [#/Vol] 5.61 10*3/uL Normal 3.70-11.00 [facility] Comment on above: Order Comment: Speci men Type: BLOOD SPECIMENOrdering Facility: [facility] Address: [address] [place] [address] Performed By: #### 5 7021-8 ####[facility] LABCLIA [id number] [place] [address] [place] CNOVon 11-08-2023 CNOV Normal [facility] Comprehensive metabolic 2000 panelon 11-08-2023 Albumin [Mass/Vol] 4.3 g/dL Normal 3.9-4.9 [facility] Comment on above: Order Comment: Speci men Type: BLOOD SPECIMENOrdering Facility: [facility] Address: [address] [place] [address] Performed By: #### 2 4323-8 ####[facility] LABCLIA [id number] [place] [address] [place] ALP [Catalytic activity/Vol] 111 U/L Normal 34-123 [facility] Comment on above: Order Comment: Speci men Type: BLOOD SPECIMENOrdering Facility: [facility] Address: [address] [place] [address] Performed By: #### 2 4323-8 ####[facility] LABCLIA [id number] [place] [address] [place] ALT [Catalytic activity/Vol] 19 U/L Normal 7-38 [facility] Comment on above: Order Comment: Speci men Type: BLOOD SPECIMENOrdering Facility: [facility] Address: [address] [place] [address] Performed By: #### 2 4323-8 ####[facility] LABCLIA [id number] [place] [address] [place] Anion gap [Moles/Vol] 14 mmol/L Normal 8-15 [facility] Comment on above: Order Comment: Speci men Type: BLOOD SPECIMENOrdering Facility: [facility] Address: [address] [place] [address] Performed By: #### 2 4323-8 ####[facility] LABCLIA [id number] [place] [address] [place] AST [Catalytic activity/Vol] 23 U/L Normal 13-35 [facility] Comment on above: Order Comment: Speci men Type: BLOOD SPECIMENOrdering Facility: [facility] Address: [address] [place] [address] Performed By: #### 2 4323-8 ####[facility] LABCLIA [id number] [place] [address] [place] Bilirubin [Mass/Vol] 0.4 mg/dL Normal 0.2-1.3 [facility] Comment on above: Order Comment: Speci men Type: BLOOD SPECIMENOrdering Facility: [facility] Address: [address] [place] [address] Performed By: #### 2 4323-8 ####[facility] LABCLIA [id number] [place] [address] [place] Calcium [Mass/Vol] 10.0 mg/dL Normal 8.5-10.2 [facility] Comment on above: Order Comment: Speci men Type: BLOOD SPECIMENOrdering Facility: [facility] Address: [address] [place] [address] Performed By: #### 2 4323-8 ####[facility] LABCLIA [id number] [place] [address] [place] Chloride [Moles/Vol] 99 mmol/L Normal 98-107 [facility] Comment on above: Order Comment: Speci men Type: BLOOD SPECIMENOrdering Facility: [facility] Address: [address] [place] [address] Performed By: #### 2 4323-8 ####[facility] LABCLIA [id number] [place] [address] [place] CO2 [Moles/Vol] 25 mmol/L Normal 22-30 [facility] Comment on above: Order Comment: Speci men Type: BLOOD SPECIMENOrdering Facility: [facility] Address: [address] [place] [address] Performed By: #### 2 4323-8 ####[facility] LABCLIA [id number] [place] [address] [place] Creatinine [Mass/Vol] 1.06 mg/dL High 0.58-0.96 [facility] Comment on above: Order Comment: Speci men Type: BLOOD SPECIMENOrdering Facility: [facility] Address: [address] [place] [address] Performed By: #### 2 4323-8 ####[facility] LABIA [id number] [address] [place] [facility] Creatinine and Glomerular filtration rate.predicted panel (S/P/Bld) 60 mL/min/1.73m??? Normal >=60 [facility] Comment on above: Order Comment: Speci men Type: BLOOD SPECIMENOrdering Facility: [facility] Address: [address] [place] [address] Result Comment: Tuyet mated Glomerular Filtration Rate (eGFR) is calculated using the 2020 CKD-EPI creatinine equation. This equation utilizes serum creatinine, sex, and age as parameters. The creatinine assay has traceable calibration to isotope dilution-mass spectrometry. Refer to KDIGO guidelines for clinical interpretation. In patients with unstable renal function, e.g. those with acute kidney injury, the eGFR may not accurately reflect actual GFR. Performed By: #### 2 4323-8 ####[facility] LABCLIA [id number] [place] [address] [place] Glucose [Mass/Vol] 88 mg/dL Normal 74-99 [facility] Comment on above: Order Comment: Speci men Type: BLOOD SPECIMENOrdering Facility: [facility] Address: [address] [place] [address] Result Comment: The [place] Diabetes Association (ADA) provides guidance for cutoff values for fasting glucose and random glucose. The ADA defines fasting as no caloric intake for at least 8 hours. Fasting plasma glucose results between 100 to 125 mg/dL indicate increased risk for diabetes (prediabetes).Fasting plasma glucose results greater than or equal to 126 mg/dL meet the criteria for diagnosis of diabetes. In the absence of unequivocal hyperglycemia, results should be confirmed by repeat testing. In a patient with classic symptoms of hyperglycemia or hyperglycemic crisis, random plasma glucose results greater than or equal to 200 mg/dL meet the criteria for diagnosis of diabetes.Reference: Standards of Medical Care in Diabetes 2016, [place] Diabetes Association. Diabetes Care. 2016.39(Suppl 1). Performed By: #### 2 4323-8 ####[facility] LABIA [id number] [place] [address] [place] Potassium [Moles/Vol] 3.9 mmol/L Normal 3.7-5.1 [facility] Comment on above: Order Comment: Speci men Type: BLOOD SPECIMENOrdering Facility: [facility] Address: [address] [place] [address] Performed By: #### 2 4323-8 ####[facility] LABIA [id number] [place] [address] [place] Protein [Mass/Vol] 7.2 g/dL Normal 6.3-8.0 [facility] Comment on above: Order Comment: Speci men Type: BLOOD SPECIMENOrdering Facility: [facility] Address: [address] [place] [address] Performed By: #### 2 4323-8 ####[facility] LABIA [id number] [place] [address] [place] Sodium [Moles/Vol] 138 mmol/L Normal 136-144 [facility] Comment on above: Order Comment: Speci men Type: BLOOD SPECIMENOrdering Facility: [facility] Address: [address] [place] [address] Performed By: #### 2 4323-8 ####[facility] LABCLIA [id number] [address] [address] [place] Urea nitrogen [Mass/Vol] 26 mg/dL High 7-21 [facility] Comment on above: Order Comment: Speci men Type: BLOOD SPECIMENOrdering Facility: [facility] Address: [address] [place] [address] Performed By: #### 2 4323-8 ####[facility] LABCLIA [id number] [address] [address] [place] HISTORY PHYSICALon HISTORY PHYSICAL Normal [facility] CNCNPATEDon 11-02-2023 CNCNPATED Normal [facility] Basic metabolic 2000 panelon 11-01-2023 Anion gap [Moles/Vol] 10 mmol/L Normal 8-15 [facility] Comment on above: Order Comment: Speci men Type: BLOOD SPECIMENOrdering Facility: [facility] Address: [address] [place] [address] Performed By: #### 2 4321-2 ####[facility]ITAL[facility] [id number] [place] [address] [place] Calcium [Mass/Vol] 9.3 mg/dL Normal 8.5-10.2 [facility] Comment on above: Order Comment: Speci men Type: BLOOD SPECIMENOrdering Facility: [facility] Address: [address] [place] [address] Performed By: #### 2 4321-2 ####[facility] LABORATORYCLIA [id number] [place] [address] [place] Chloride [Moles/Vol] 101 mmol/L Normal 98-107 [facility] Comment on above: Order Comment: Speci men Type: BLOOD SPECIMENOrdering Facility: [facility] Address: [address] [place] [address] Performed By: #### 2 4321-2 ####[facility] LABORATORYCLIA [id number] [place] [address] [place] CO2 [Moles/Vol] 29 mmol/L Normal 22-30 [facility] Comment on above: Order Comment: Speci men Type: BLOOD SPECIMENOrdering Facility: [facility] Address: [address] [place] [address] Performed By: #### 2 4321-2 ####[facility] LABORATORYCLIA [id number] [place] [address] [place] Creatinine [Mass/Vol] 1.04 mg/dL High 0.58-0.96 [facility] Comment on above: Order Comment: Speci men Type: BLOOD SPECIMENOrdering Facility: [facility] Address: [address] [place] [address] Performed By: #### 2 4321-2 ####[facility] LABORATORYCLIA [id number] [place] [address] [facility] Creatinine and Glomerular filtration rate.predicted panel (S/P/Bld) 61 mL/min/1.73m??? Normal >=60 [facility] Comment on above: Order Comment: Speci men Type: BLOOD SPECIMENOrdering Facility: [facility] Address: [address] [place] [address] Result Comment: Tuyet mated Glomerular Filtration Rate (eGFR) is calculated using the 2020 CKD-EPI creatinine equation. This equation utilizes serum creatinine, sex, and age as parameters. The creatinine assay has traceable calibration to isotope dilution-mass spectrometry. Refer to KDIGO guidelines for clinical interpretation. In patients with unstable renal function, e.g. those with acute kidney injury, the eGFR may not accurately reflect actual GFR. Performed By: #### 2 4321-2 ####[facility] LABORATORYCLIA [id number] [place] [address] [place] Glucose [Mass/Vol] 77 mg/dL Normal 74-99 [facility] Comment on above: Order Comment: Heribertoi men Type: BLOOD SPECIMENOrdering Facility: [facility] Address: [address] [place] [address] Result Comment: The Citizen [place] Diabetes Association (ADA) provides guidance for cutoff values for fasting glucose and random glucose. The ADA defines fasting as no caloric intake for at least 8 hours. Fasting plasma glucose results between 100 to 125 mg/dL indicate increased risk for diabetes (prediabetes).Fasting plasma glucose results greater than or equal to 126 mg/dL meet the criteria for diagnosis of diabetes. In the absence of unequivocal hyperglycemia, results should be confirmed by repeat testing. In a patient with classic symptoms of hyperglycemia or hyperglycemic crisis, random plasma glucose results greater than or equal to 200 mg/dL meet the criteria for diagnosis of diabetes.Reference: Standards of Medical Care in Diabetes 2016, [place] Diabetes Association. Diabetes Care. 2016.39(Suppl 1). Performed By: #### 2 4321-2 ####[facility] LABORATORYCLIA [id number] [place] [address] [place] Potassium [Moles/Vol] 3.5 mmol/L Low 3.7-5.1 [facility] Comment on above: Order Comment: Speci [facility] Type: BLOOD SPECIMENOrdering Facility: [facility] Address: [address] [place] [address] Performed By: #### 2 4321-2 ####[facility] HOSPITALIA [id number] [place] [address] [place] Sodium [Moles/Vol] 140 mmol/L Normal 136-144 [facility] Comment on above: Order Comment: Nicolle phipps Type: BLOOD SPECIMENOrdering Facility: [facility] Address: [address] [place] [address] Performed By: #### 2 4321-2 ####[facility] LABORATORYIA [id number] [place] [id number] [place] Urea nitrogen [Mass/Vol] 33 mg/dL High 7-21 [facility] Comment on above: Order Comment: Heribertoi moise Type: BLOOD SPECIMENOrdering Facility: [facility] Address: [address] [place] [address] Performed By: #### 2 4321-2 ####[facility] LABORATORYIA [id number] [place] [address] [place] CBC W Auto Differential pane l (Bld)on 11-01-2023 Basophils (Bld) [#/Vol] 10*3/uL Normal <0.11 [facility] Comment on above: Order Comment: Speci men Type: BLOOD SPECIMENOrdering Facility: [facility] Address: [address] [place] [address] Performed By: #### 5 7021-8 ####[facility] LABORATORYCLIA [id number] [facility] [place] [address] [place] Basophils/100 WBC (Bld) 0.3 % Normal [facility] Comment on above: Order Comment: Speci men Type: BLOOD SPECIMENOrdering Facility: [facility] Address: [address] [place] [address] Performed By: #### 5 7021-8 ####[facility] LABORATORYIA [id number] [place] [address] [place] Differential cell count method Nom (Bld) Auto Normal [facility] Comment on above: Order Comment: Speci men Type: BLOOD SPECIMENOrdering Facility: [facility] Address: [address] [place] [address] Performed By: #### 5 7021-8 ####[facility] LABORATORYIA [id number] [place] [id number] [place] Eosinophils (Bld) [#/Vol] 0.06 10*3/uL Normal <0.46 [facility] Comment on above: Order Comment: Speci men Type: BLOOD SPECIMENOrdering Facility: [facility] Address: [address] [place] [address] Performed By: #### 5 7021-8 ####[facility] LABORATORYCLIA [id number] [facility] [place] [address] [place] Eosinophils/100 WBC (Bld) 0.9 % Normal [facility] Comment on above: Order Comment: Speci men Type: BLOOD SPECIMENOrdering Facility: [facility] Address: [address] [place] [address] Performed By: #### 5 7021-8 ####[facility] LABORATORYCLIA [id number] [facility] [place] [address] [place] Erythrocyte distribution width (RBC) [Ratio] 14.3 % Normal 11.5-15.0 [facility] Comment on above: Order Comment: Speci men Type: BLOOD SPECIMENOrdering Facility: [facility] Address: [address] [place] [address] Performed By: #### 5 7021-8 ####[facility] LABORATORYIA [id number] [address] [place] Hematocrit (Bld) [Volume fraction] 34.8 % Low 36.0-46.0 [facility] Comment on above: Order Comment: Speci men Type: BLOOD SPECIMENOrdering Facility: [facility] Address: [address] [place] [address] Performed By: #### 5 7021-8 ####[facility] H[facility]PITALIA [id number] [place] [address] [place] Hemoglobin (Bld) [Mass/Vol] 11.4 g/dL Low 11.5-15.5 [facility] Comment on above: Order Comment: Speci men Type: BLOOD SPECIMENOrdering Facility: [facility] Address: [address] [place] [address] Performed By: #### 5 7021-8 ####[facility]ITALIA [id number] [address] [place] Immature granulocytes (Bld) [#/Vol] 10*3/uL Normal <0.10 [facility] Comment on above: Order Comment: Speci men Type: BLOOD SPECIMENOrdering Facility: [facility] Address: [address] [place] [address] Performed By: #### 5 7021-8 ####[facility]ITALIA [id number] [address] [place] Immature granulocytes/100 WBC (Bld) 0.3 % Normal [facility] Comment on above: Order Comment: Speci men Type: BLOOD SPECIMENOrdering Facility: [facility] Address: [address] [place] [address] Performed By: #### 5 7021-8 ####[facility] LABORATORYIA [id number] [place], [place] [id number] [place] [address] [place] Lymphocytes (Bld) [#/Vol] 0.89 10*3/uL Low 1.00-4.00 [facility] Comment on above: Order Comment: Speci men Type: BLOOD SPECIMENOrdering Facility: [facility] Address: [address] [place] [address] Performed By: #### 5 7021-8 ####[facility] H[facility]ITALIA [id number] [address] Lymphocytes/100 WBC (Bld) 13.5 % Normal [facility] Comment on above: Order Comment: Speci men Type: BLOOD SPECIMENOrdering Facility: [facility] Address: [address] [place] [address] Performed By: #### 5 7021-8 ####[facility] [id number] [address] [place] MCH (RBC) [Entitic mass] 27.3 pg Normal 26.0-34.0 [facility] Comment on above: Order Comment: Speci men Type: BLOOD SPECIMENOrdering Facility: [facility] Address: [address] [place] [address] Performed By: #### 5 7021-8 ####[facility] H[facility]PITALIA [id number] [place] [address] [place] MCHC (RBC) [Mass/Vol] 32.8 g/dL Normal 30.5-36.0 [facility] Comment on above: Order Comment: Speci men Type: BLOOD SPECIMENOrdering Facility: [facility] Address: [address] [place] [address] Performed By: #### 5 7021-8 ####[facility] HOSPITALIA [id number] [place] [address] [place] MCV (RBC) [Entitic vol] 83.5 fL Normal 80.0-100.0 [facility] Comment on above: Order Comment: Speci men Type: BLOOD SPECIMENOrdering Facility: [facility] Address: [address] [place] [address] Performed By: #### 5 7021-8 ####[facility]ITALIA [id number] [place] [address] [place] Monocytes (Bld) [#/Vol] 0.62 10*3/uL Normal <0.87 [facility] Comment on above: Order Comment: Speci men Type: BLOOD SPECIMENOrdering Facility: [facility] Address: [address] [place] [address] Performed By: #### 5 7021-8 ####[facility]IA [id number] [place] [address] [place] Monocytes/100 WBC (Bld) 9.4 % Normal [facility] Comment on above: Order Comment: Speci men Type: BLOOD SPECIMENOrdering Facility: [facility] Address: [address] [place] [address] Performed By: #### 5 7021-8 ####[facility]IA [id number] [place] [address] [place] Neutrophils (Bld) [#/Vol] 4.98 10*3/uL Normal 1.45-7.50 [facility] Comment on above: Order Comment: Speci men Type: BLOOD SPECIMENOrdering Facility: [facility] Address: [address] [place] [address] Performed By: #### 5 7021-8 ####[facility]ITALIA [id number] [place] [address] [place] Neutrophils/100 WBC (Bld) 75.6 % Normal [facility] Comment on above: Order Comment: Speci men Type: BLOOD SPECIMENOrdering Facility: [facility] Address: [address] [place] [address] Performed By: #### 5 7021-8 ####[facility] LABORATORYCLIA [id number] [place] [address] [place] Nucleated RBC (Bld) [#/Vol] 10*3/uL Normal <0.01 [facility] Comment on above: Order Comment: Speci men Type: BLOOD SPECIMENOrdering Facility: [facility] Address: [address] [place] [address] Performed By: #### 5 7021-8 ####[facility] LABORATORYIA [id number] [place] [address] [place] Nucleated RBC/100 WBC (Bld) [Ratio] 0.0 /100 WBC Normal [facility] Comment on above: Order Comment: Speci men Type: BLOOD SPECIMENOrdering Facility: [facility] Address: [address] [place] [address] Performed By: #### 5 7021-8 ####[facility]ITALIA [id number] [place] [address] [place] Platelet mean volume (Bld) [Entitic vol] 10.3 fL Normal 9.0-12.7 [facility] Comment on above: Order Comment: Speci men Type: BLOOD SPECIMENOrdering Facility: [facility] Address: [address] [place] [address] Performed By: #### 5 7021-8 ####[facility] LABORATORYIA [id number] [place] [address] [place] Platelets (Bld) [#/Vol] 238 10*3/uL Normal 150-400 [facility] Comment on above: Order Comment: Speci men Type: BLOOD SPECIMENOrdering Facility: [facility] Address: [address] [place] [address] Performed By: #### 5 7021-8 ####[facility] LABORATORYIA [id number] [place] [address] [place] RBC (Bld) [#/Vol] 4.17 10*6/uL Normal 3.90-5.20 [facility] Comment on above: Order Comment: Speci men Type: BLOOD SPECIMENOrdering Facility: [facility] Address: [address] [place] [address] Performed By: #### 5 7021-8 ####[facility] LABORATORYCLIA [id number] [place] [address] [place] WBC (Bld) [#/Vol] 6.59 10*3/uL Normal 3.70-11.00 [facility] Comment on above: Order Comment: Speci men Type: BLOOD SPECIMENOrdering Facility: [facility] Address: [address] [place] [address] Performed By: #### 5 7021-8 ####[facility] LABORATORYCLIA [id number] [place] [address] [place] CNOVon 11-01-2023 CNOV Normal [facility] CNPNon 11-01-2023 CNPN Normal [facility] Coding Summaryon 11-01-2023 Coding Summary Normal [facility] ED NOTEon 11-01-2023 ED NOTE HNO ID: [id number] Author: SHARIFA RIZVI RN Service: Emergency Medicine Author Type: Registered Nurse Type: ED Notes Filed: 11/01/2023 16:37 Note Text: Discharge understood. Advised to follow up with pcp. Walked out with steady gait. Normal [facility] ED NOTE HNO ID: [id number] Author: BOBBI SEPULVEDA RN Service: ? Author Type: Registered Nurse Type: ED Notes Filed: 11/01/2023 13:41 Note Text: Bed: ED-11 Expected date: Expected time: Means of arrival: Comments: CRITICAL Normal [facility] ED PROV NOTEon 11-01-2023 ED PROV NOTE Normal [facility] Urinalysis complete panel (U )on 11-01-2023 Bilirubin Ql (U) Negative Normal Negative [facility] Comment on above: Order Comment: Speci men Type: URINE SPECIMENOrdering Facility: [facility] Address: [address] [place] [address] Performed By: #### 2 4356-8 ####[facility] LABORATORYIA [id number] [place] [address] [place] Clarity (Unsp spec) Clear Normal Clear [facility] Comment on above: Order Comment: Speci men Type: URINE SPECIMENOrdering Facility: [facility] Address: [address] [place] [address] Performed By: #### 2 4356-8 ####[facility] [id number] [place] [id number] [place] Color (U) Light Yellow Normal yellow [facility] Comment on above: Order Comment: Speci men Type: URINE SPECIMENOrdering Facility: [facility] Address: [address] [place] [address] Performed By: #### 2 4356-8 ####[facility] [id number] [place] [address] [place] Epithelial cells LM.HPF (Urine sed) [#/Area] Few Normal [facility] Comment on above: Order Comment: Speci men Type: URINE SPECIMENOrdering Facility: [facility] Address: [address] [place] [address] Result Comment: Few Performed By: #### 2 4356-8 ####[facility] [id number] [place] [address] [place] Glucose Test strip (U) [Mass/Vol] Negative Normal Trace, Negative [facility] Comment on above: Order Comment: Speci men Type: URINE SPECIMENOrdering Facility: [facility] Address: [address] [place] [address] Performed By: #### 2 4356-8 ####[facility] [id number] [place] [id number] [place] Hemoglobin Ql (U) Negative Normal Negative, Trace [facility] Comment on above: Order Comment: Speci men Type: URINE SPECIMENOrdering Facility: [facility] Address: [address] [place] [address] Performed By: #### 2 4356-8 ####[facility] [id number] [place] [address] [place] Hyaline casts (Urine sed) [#/Area] 1-3 /LPF Abnormal 0 /LPF [facility] Comment on above: Order Comment: Speci men Type: URINE SPECIMENOrdering Facility: [facility] Address: [address] [place] [address] Performed By: #### 2 4356-8 ####[facility] [id number] [place] [address] [place] Ketones Ql (U) Negative Normal Negative, Trace [facility] Comment on above: Order Comment: Speci men Type: URINE SPECIMENOrdering Facility: [facility] Address: [address] [place] [address] Performed By: #### 2 4356-8 ####[facility] [id number] [place] [address] [place] Leukocyte esterase Test strip Ql (U) 75 Ian/uL Abnormal Negative, 25 Ian/uL [facility] Comment on above: Order Comment: Speci men Type: URINE SPECIMENOrdering Facility: [facility] Address: [address] [place] [address] Performed By: #### 2 4356-8 ####[facility] [id number] [place] [address] [place] Nitrite Ql (U) Negative Normal Negative [facility] Comment on above: Order Comment: Speci men Type: URINE SPECIMENOrdering Facility: [facility] Address: [address] [place] [address] Performed By: #### 2 4356-8 ####[facility] [id number] [place] [address] [place] pH (U) 7.5 [pH] Normal 5.0-8.0 [facility] Comment on above: Order Comment: Speci men Type: URINE SPECIMENOrdering Facility: [facility] Address: [address] [place] [address] Performed By: #### 2 4356-8 ####[facility] [id number] [place] [address] [place] Protein (U) [Mass/Vol] Trace Normal Trace , Negative [facility] Comment on above: Order Comment: Speci men Type: URINE SPECIMENOrdering Facility: [facility] Address: [address] [place] [address] Performed By: #### 2 4356-8 ####[facility] [id number] [place] [id number] [place] RBC LM.HPF (Urine sed) [#/Area] 0-3 /HPF Normal 0-3 /HPF [facility] Comment on above: Order Comment: Speci men Type: URINE SPECIMENOrdering Facility: [facility] Address: [address] [place] [address] Performed By: #### 2 4356-8 ####[facility] [id number] [place] [address] [place] Specific gravity (U) [Rel density] 1.017 Normal 1.005-1.030 [facility] Comment on above: Order Comment: Speci men Type: URINE SPECIMENOrdering Facility: [facility] Address: [address] [place] [address] Performed By: #### 2 4356-8 ####[facility] [id number] [address] [place] Urobilinogen Ql (U) Normal Normal Normal [facility] Comment on above: Order Comment: Speci men Type: URINE SPECIMENOrdering Facility: [facility] Address: [address] [place] [address] Performed By: #### 2 4356-8 ####[facility] [id number] [place] [id number] [place] WBC LM.HPF (Urine sed) [#/Area] 0-5 /HPF Normal 0-5 /HPF [facility] Comment on above: Order Comment: Speci men Type: URINE SPECIMENOrdering Facility: [facility] Address: [address] [place] [address] Performed By: #### 2 4356-8 ####[facility] [id number] [place] [address] [place] XR ABDOMEN 1V SUPINEon 10-31 XR ABDOMEN 1V SUPINE Normal [facility] XR CHEST 1V FRONTAL PORTon 0 11-01-2023 XR CHEST 1V FRONTAL PORT Normal [facility] CNPNon 10-31-2023 CNPN Normal [facility] NM GASTRIC EMPTYING LIQUIDon 10-30-2023 NM GASTRIC EMPTYING LIQUID Normal [facility] Stomach Views for gastric emptying liquid phase W radionuclide Isai 10-30-2023 IMPRESSION: Delayed gastric emptying rate of water. Veterinary X Ray Operator: SGAAR Transcribe Date/Time: Oct 30 2023 11:45A Dictated by : MARIA FERNANDA MORROW MD This examination was interpreted and the report reviewed and electronically signed by: MARIA FERNANDA MORROW MD on Oct 30 2023 11:47AM [facility] DIVISION OF RADIOLOGY * * *Final Report* * * DATE OF EXAM: Oct 30 2023 9:16AM N 0065 - NM GASTRIC EMPTYING LIQUID / PROCEDURE REASON: Nausea * * * * Physician Interpretation * * * * EXAM: LIQUID MEAL GASTRIC EMPTYING STUDY HISTORY: Nausea TECHNIQUE: 1 millicuries of Tc-99m DTPA was administered PO in 8 oz water consumed within 1 minute. Planar images of the gastric region were obtained at 0, 30, and 60 minutes. Geometric means were used to plot a time-activity curve and calculate a T-1/2. RESULTS: Calculated gastric clearance T-1/2: more than 60 minutes, only 4% of emptying by 60 minutes (normal range, 8-25 minutes) DIVISION OF RADIOLOGY Provider, [facility]23 * * *Final Report* * * DATE OF EXAM: Oct 30 2023 9:16AM N 0065 - NM GASTRIC EMPTYING LIQUID / PROCEDURE REASON: Nausea * * * * Physician Interpretation * * * * EXAM: LIQUID MEAL GASTRIC EMPTYING STUDY HISTORY: Nausea TECHNIQUE: 1 millicuries of Tc-99m DTPA was administered PO in 8 oz water consumed within 1 minute. Planar images of the gastric region were obtained at 0, 30, and 60 minutes. Geometric means were used to plot a time-activity curve and calculate a T-1/2. RESULTS: Calculated gastric clearance T-1/2: more than 60 minutes, only 4% of emptying by 60 minutes (normal range, 8-25 minutes) IMPRESSION IMPRESSION: Delayed gastric emptying rate of water. Veterinary X Ray Operator: [facility] Transcribe Date/Time: Oct 30 2023 11:45A Dictated by : MARIA FERNANDA MORROW MD This examination was interpreted and the report reviewed and electronically signed by: MARIA FERNANDA MORROW MD on Oct 30 2023 11:47AM EST [facility] Radiology Study observation (narrative) [facility] Stomach Views for gastric emptying liquid phase W radionuclide POOrdered By: Ccf Provider on 10-30-2023 [facility] CNOVon 10-27-2023 CNOV Normal [facility] NM GASTRIC EMPTYING SOLIDon 10-27-2023 NM GASTRIC EMPTYING SOLID Normal [facility] CNOVSPon 10-26-2023 CNOVSP Normal [facility] CNPNon 10-26-2023 CNPN Normal [facility] CT CHEST W IVCONon CT [facility]ST W IVCON [facility]FT TISS[facility] W IVCONo n 10-26-2023 CT NECK SOFT TISSUE W IVCON Normal [facility] CT Neck W contrast Lizzie 09-28 IMPRESSION: Primary: NI-RADS 1. Expected post-treatment changes in the neck without evidence of recurrent disease in the primary site. Neck: NI-RADS 1. No evidence of abnormal lymph nodes. Veterinary X Ray Operator: [facility] Transcribe Date/Time: Oct 26 2023 10:14A Dictated by : OVI DOMINGUEZ DO This examination was interpreted and the report reviewed and electronically signed by: LADI REGALADO MD on Oct 26 2023 11:41AM [facility] DIVISION OF RADIOLOGY * * *Final Report* * * DATE OF EXAM: Oct 26 2023 10:08AM [facility] 0013 - CT NECK SOFT TISSUE W IVCON / PROCEDURE REASON: Papillary thyroid carcinoma (HCC) * * * * Physician Interpretation * * * * CT NECK SOFT TISSUE W IVCON History: Papillary thyroid carcinoma (HCC) papillary thyroid cancer status post total thyroidectomy and central neck dissection on 08/14/2018 and adjuvant radiotherapy in 2019. Comparison: CT neck 06/07/2022 through 02/11/2019. Technique: A series of contiguous helical scans were performed from the skull base to the aortic arch with intravenous contrast. Contrast: Omnipaque 300. Contrast Dose: 100 cc Route of Administration: IV CT Radiation dose: Integrated Dose-length product (DLP) for this visit = 561 mGy*cm. CT Dose Reduction Employed: Automated exposure control (AEC) RESULT: Postoperative change: Stable postsurgical changes of total thyroidectomy and central neck dissection. No enhancing soft tissue in the primary site or elsewhere in the neck to suggest residual/recurrent disease. Suprahyoid Neck: Nasopharynx and oropharynx appear normal. Parapharyngeal tissue planes are preserved. Oral cavity and floor of mouth appear normal within constraints of artifact from dental amalgam. Fatty atrophy of the bilateral parotid glands. Bilateral submandibular glands appear unremarkable. Collar Worker spaces appear normal. Infrahyoid Neck: Hypopharynx, larynx, and imaged infraglottic trachea appear normal. Imaged upper esophagus is unremarkable. Lymph Nodes: No cervical lymphadenopathy by size criteria. Carotid Space: No masses. Patent extracranial carotid systems and internal jugular veins bilaterally. Orbits, Face and Skull Base: Bilateral pseudophakia. Orbital soft tissue planes are preserved. Paranasal sinuses are clear. Mastoid air cells and middle ear cavities are clear. No evidence of an osteolytic or osteoblastic process in the skull base. Mild degenerative changes of the bilateral TMJs. Imaged intracranial contents: No abnormal intracranial enhancement, mass effect, or hydrocephalus. Cervical spine and remaining osseous structures: No discrete osteolytic or osteoblastic process. Mild spondylotic changes in the visualized spine. Lung apices: For detailed intrathoracic findings, please see concurrent CT chest which is reported under a separate accession. Grossly stable fibrotic/spiculated changes in the RIGHT upper lung. Other: Feeding tube coursing through the LEFT nares. DIVISION OF RADIOLOGY Provider, [facility] - 10/26/2023 * * *Final Report* * * DATE OF EXAM: Oct 26 2023 10:08AM [facility] 0013 - CT NECK SOFT TISSUE W IVCON / PROCEDURE REASON: Papillary thyroid carcinoma (HCC) * * * * Physician Interpretation * * * * CT NECK SOFT TISSUE W IVCON History: Papillary thyroid carcinoma (HCC) papillary thyroid cancer status post total thyroidectomy and central neck dissection on 08/14/2018 and adjuvant radiotherapy in 2019. Comparison: CT neck 06/07/2022 through 02/11/2019. Technique: A series of contiguous helical scans were performed from the skull base to the aortic arch with intravenous contrast. Contrast: Omnipaque 300. Contrast Dose: 100 cc Route of Administration: IV CT Radiation dose: Integrated Dose-length product (DLP) for this visit = 561 mGy*cm. CT Dose Reduction Employed: Automated exposure control (AEC) RESULT: Postoperative change: Stable postsurgical changes of total thyroidectomy and central neck dissection. No enhancing soft tissue in the primary site or elsewhere in the neck to suggest residual/recurrent disease. Suprahyoid Neck: Nasopharynx and oropharynx appear normal. Parapharyngeal tissue planes are preserved. Oral cavity and floor of mouth appear normal within constraints of artifact from dental amalgam. Fatty atrophy of the bilateral parotid glands. Bilateral submandibular glands appear unremarkable. Collar Worker spaces appear normal. Infrahyoid Neck: Hypopharynx, larynx, and imaged infraglottic trachea appear normal. Imaged upper esophagus is unremarkable. Lymph Nodes: No cervical lymphadenopathy by size criteria. Carotid Space: No masses. Patent extracranial carotid systems and internal jugular veins bilaterally. Orbits, Face and Skull Base: Bilateral pseudophakia. Orbital soft tissue planes are preserved. Paranasal sinuses are clear. Mastoid air cells and middle ear cavities are clear. No evidence of an osteolytic or osteoblastic process in the skull base. Mild degenerative changes of the bilateral TMJs. Imaged intracranial contents: No abnormal intracranial enhancement, mass effect, or hydrocephalus. Cervical spine and remaining osseous structures: No discrete osteolytic or osteoblastic process. Mild spondylotic changes in the visualized spine. Lung apices: For detailed intrathoracic findings, please see concurrent CT chest which is reported under a separate accession. Grossly stable fibrotic/spiculated changes in the RIGHT upper lung. Other: Feeding tube coursing through the LEFT nares. IMPRESSION IMPRESSION: Primary: NI-RADS 1. Expected post-treatment changes in the neck without evidence of recurrent disease in the primary site. Neck: NI-RADS 1. No evidence of abnormal lymph nodes. Veterinary X Ray Operator: [facility] Transcribe Date/Time: Oct 26 2023 10:14A Dictated by : OVI DOMINGUEZ, DO This examination was interpreted and the report reviewed and electronically signed by: LADI REGALADO MD on Oct 26 2023 11:41AM EST [facility] Radiology Study observation (narrative) [facility] CT Neck W contrast IVOrdered By: Ccf Provider on 10-26-2023 [facility] THYROGLOBULIN ANTIBODYon Thyroglobulin Ab Qn [IU]/mL Normal <4.0 [facility] Comment on above: Order Comment: Nicolle phipps Type: BLOOD SPECIMENOrdering Facility: [facility] Address: [address] [place] [address] Result Comment: The Thyroglobulin Antibody test was performed using the Arlin Reese Unicel DXI paramagnetic particle chemiluminescent immunoassay method. Results obtained with different assay methods or kits cannot be used interchangeably. Performed By: #### T CLAUDIO ####[facility] LABCLIA [id number] [address] THYROGLOBULIN BY LC-MS/MS, S INOCENTE OR PLASMA, FOR THYROGLOBULIN ANTIBODY INTERFERENCEon 10-26-2023 THYROGLOBULIN, LC-MS/MS <0.5 Low 1.3-31.8 [facility] Comment on above: Order Comment: Nicolle phipps Type: BLOOD SPECIMENOrdering Facility: [facility] Address: [address] [place] [address] Result Comment: Resu lts obtained with different test methods or kits cannot beused interchangeably. Thyroglobulin results, regardless ofconcentration, should not be interpreted as absolute evidence forthe presence or absence of papillary or follicular thyroid cancer.Thyroglobulin testing is not recommended for use as a screeningprocedure to detect the presence of thyroid cancer in the generalpopulation.INTERPRETIVE INFORMATION: Thyroglobulin by LC-MS/MS, Serum/PlasmaLower limit of detection for Thyroglobulin by LC-MS/MS is 0.5ng/mL.This test was developed and its performance characteristicsdetermined by [facility]. It has not been cleared orapproved by the [place] Food and Drug Administration. This test wasperformed in a CLIA certified laboratory and is intended forclinical purposes.Performed By: [facility] [place], [place] [address]Jcabaohqel Director: Jeff Martin MD, PhDCLIA Number: [id number] Performed By: #### T [facility] ####[facility] [id number] [place] [address] TSH SerPl-aCncon 10-26-2023 TSH Qn 0.332 m[IU]/L Normal 0.270-4.200 [facility] Comment on above: Order Comment: Speci men Type: BLOOD SPECIMENOrdering Facility: [facility] Address: [address] [place] [address] Performed By: #### 3 016-3 ####[facility] LABIA [id number] [place] [address] [place] CNOVon 10-19-2023 CNOV Normal [facility] CNOV Normal [facility] CNCOon 10-18-2023 CNCO Letter Text Normal [facility] CNOVon 10-18-2023 CNOV Normal [facility] CNOVon 10-12-2023 CNOV Normal [facility] CT CHEST WO IVCONon 10-11-19 CT CHEST WO IVCON Normal [facility] Coding Summaryon 10-11-2023 Coding Summary Normal [facility] Reminder Messageson 10-11-19 Reminder Messages Normal [facility] CNPNon 10-10-2023 CNPN Normal [facility] 25(OH)D3 SerPl-ncon 2023 25-hydroxyvitamin D3 [Mass/Vol] 21.1 ng/mL Low 31.0-80.0 [facility] Comment on above: Order Comment: Speci men Type: BLOOD SPECIMENOrdering Facility: [facility] Address: [address] [place] [address] Result Comment: Clas sification of 25 [place] Vitamin D status:Deficiency/Insufficiency: < or = 30 ng/ml.Sufficiency/Optimal Levels: 31-80 ng/mLToxicity: > 100 ng/mL.Test performed by chemiluminescent immunoassay. Performed By: #### 1 989-3 ####[facility] [id number] [place] [address] [place] A-Tocopherol Vit E SerPl-mCn con 10-09-2023 Alpha tocopherol [Mass/Vol] 13.9 mg/L Normal 6.0-23.0 [facility] Comment on above: Order Comment: Speci men Type: BLOOD SPECIMENOrdering Facility: [facility] Address: [address] [place] [place] [id number] Performed By: #### 1 823-4, 2923-1 ####[facility] LABCLIA [id number] [place] [id number] [place] Alpha tocopherol [Mass/Vol]o n 10-09-2023 Beta+gamma tocopherol [Mass/Vol] 1.0 mg/L Normal 0.3-3.2 [facility] Comment on above: Order Comment: Speci men Type: BLOOD SPECIMENOrdering Facility: [facility] Address: [address] [place] [address] Result Comment: This test was developed and its performance characteristics determined by [facility]'s [facility] Pathology and Laboratory Medicine [place] ([facility]USTPL[facility]). It has not been cleared or approved by the FDA. -[facility] is regulated under CLIA as qualified to perform high-complexity testing. This test is used for clinical purposes. It should not be regarded as investigational or for research. Performed By: #### 1 823-4, 2923-1 ####[facility] LABCLIA [id number] [place] [address] [place] CBC W Auto Differential pane l (Bld)on 10-09-2023 Basophils (Bld) [#/Vol] 0.04 10*3/uL Normal <0.11 [facility] Comment on above: Order Comment: Speci men Type: BLOOD SPECIMENOrdering Facility: [facility] Address: [address] [place] [address] Performed By: #### 5 7021-8 ####[facility] LABCLIA [id number] [place] [address] Basophils/100 WBC (Bld) 0.6 % Normal [facility] Comment on above: Order Comment: Speci men Type: BLOOD SPECIMENOrdering Facility: [facility] Address: [address] [place] [address] Performed By: #### 5 7021-8 ####[facility] LABCLIA [id number] [place] [address] Differential cell count method Nom (Bld) Auto Normal [facility] Comment on above: Order Comment: Speci men Type: BLOOD SPECIMENOrdering Facility: [facility] Address: [address] [place] [address] Performed By: #### 5 7021-8 ####[facility] LABCLIA [id number] [place] [address] Eosinophils (Bld) [#/Vol] 0.12 10*3/uL Normal <0.46 [facility] Comment on above: Order Comment: Speci men Type: BLOOD SPECIMENOrdering Facility: [facility] Address: [address] [place] [address] Performed By: #### 5 7021-8 ####[facility] LABCLIA [id number] [place] [address] Eosinophils/100 WBC (Bld) 1.7 % Normal [facility] Comment on above: Order Comment: Speci men Type: BLOOD SPECIMENOrdering Facility: [facility] Address: [address] [place] [address] Performed By: #### 5 7021-8 ####[facility] LABCLIA [id number] [place] [address] Erythrocyte distribution width (RBC) [Ratio] 15.1 % High 11.5-15.0 [facility] Comment on above: Order Comment: Speci men Type: BLOOD SPECIMENOrdering Facility: [facility] Address: [address] [place] [address] Performed By: #### 5 7021-8 ####[facility] LABIA [id number] [place] [address] Hematocrit (Bld) [Volume fraction] 36.4 % Normal 36.0-46.0 [facility] Comment on above: Order Comment: Speci men Type: BLOOD SPECIMENOrdering Facility: [facility] Address: [address] [place] [address] Performed By: #### 5 7021-8 ####[facility] LABCLIA [id number] [place] [address] Hemoglobin (Bld) [Mass/Vol] 11.5 g/dL Normal 11.5-15.5 [facility] Comment on above: Order Comment: Speci men Type: BLOOD SPECIMENOrdering Facility: [facility] Address: [address] [place] [address] Performed By: #### 5 7021-8 ####[facility] LABCLIA [id number] [place] [address] Immature granulocytes (Bld) [#/Vol] 0.03 10*3/uL Normal <0.10 [facility] Comment on above: Order Comment: Speci men Type: BLOOD SPECIMENOrdering Facility: [facility] Address: [address] [place] [address] Performed By: #### 5 7021-8 ####[facility] LABCLIA [id number] [place] [address] Immature granulocytes/100 WBC (Bld) 0.4 % Normal [facility] Comment on above: Order Comment: Speci men Type: BLOOD SPECIMENOrdering Facility: [facility] Address: [address] [place] [address] Performed By: #### 5 7021-8 ####[facility] LABCLIA [id number] [place] [address] Lymphocytes (Bld) [#/Vol] 0.72 10*3/uL Low 1.00-4.00 [facility] Comment on above: Order Comment: Speci men Type: BLOOD SPECIMENOrdering Facility: [facility] Address: [address] [place] [address] Performed By: #### 5 7021-8 ####[facility] LABCLIA [id number] [place] [address] Lymphocytes/100 WBC (Bld) 10.4 % Normal [facility] Comment on above: Order Comment: Speci men Type: BLOOD SPECIMENOrdering Facility: [facility] Address: [address] [place], [place] [address] Performed By: #### 5 7021-8 ####[facility] LABCLIA [id number] [place] [address] MCH (RBC) [Entitic mass] 26.9 pg Normal 26.0-34.0 [facility] Comment on above: Order Comment: Speci men Type: BLOOD SPECIMENOrdering Facility: [facility] Address: [address] [place] [address] Performed By: #### 5 7021-8 ####[facility] LABIA [id number] [place] [address] MCHC (RBC) [Mass/Vol] 31.6 g/dL Normal 30.5-36.0 [facility] Comment on above: Order Comment: Speci men Type: BLOOD SPECIMENOrdering Facility: [facility] Address: [address] [place] [address] Performed By: #### 5 7021-8 ####[facility] LABCLIA [id number] [place] [address] MCV (RBC) [Entitic vol] 85.0 fL Normal 80.0-100.0 [facility] Comment on above: Order Comment: Speci men Type: BLOOD SPECIMENOrdering Facility: [facility] Address: [address] [place] [address] Performed By: #### 5 7021-8 ####[facility] LABIA [id number] [place] [address] Monocytes (Bld) [#/Vol] 0.53 10*3/uL Normal <0.87 [facility] Comment on above: Order Comment: Speci men Type: BLOOD SPECIMENOrdering Facility: [facility] Address: [address] [place] [address] Performed By: #### 5 7021-8 ####[facility] LABCLIA [id number] [place] [address] Monocytes/100 WBC (Bld) 7.6 % Normal [facility] Comment on above: Order Comment: Speci men Type: BLOOD SPECIMENOrdering Facility: [facility] Address: [address] [place] [address] Performed By: #### 5 7021-8 ####[facility] LABCLIA [id number] [place] [address] Neutrophils (Bld) [#/Vol] 5.51 10*3/uL Normal 1.45-7.50 [facility] Comment on above: Order Comment: Speci men Type: BLOOD SPECIMENOrdering Facility: [facility] Address: [address] [place] [address] Performed By: #### 5 7021-8 ####[facility] LABCLIA [id number] [place] [address] Neutrophils/100 WBC (Bld) 79.3 % Normal [facility] Comment on above: Order Comment: Speci men Type: BLOOD SPECIMENOrdering Facility: [facility] Address: [address] [place] [address] Performed By: #### 5 7021-8 ####[facility] LABCLIA [id number] [place] [address] Nucleated RBC (Bld) [#/Vol] 10*3/uL Normal <0.01 [facility] Comment on above: Order Comment: Speci men Type: BLOOD SPECIMENOrdering Facility: [facility] Address: [address] [place] [address] Performed By: #### 5 7021-8 ####[facility] LABCLIA [id number] [place] [address] Nucleated RBC/100 WBC (Bld) [Ratio] 0.0 /100 WBC Normal [facility] Comment on above: Order Comment: Speci men Type: BLOOD SPECIMENOrdering Facility: [facility] Address: [address] [place] [address] Performed By: #### 5 7021-8 ####[facility] LABCLIA [id number] [place] [address] Platelet mean volume (Bld) [Entitic vol] 9.9 fL Normal 9.0-12.7 [facility] Comment on above: Order Comment: Speci men Type: BLOOD SPECIMENOrdering Facility: [facility] Address: [address] [place] [address] Performed By: #### 5 7021-8 ####[facility] LABCLIA [id number] [place] [address] Platelets (Bld) [#/Vol] 278 10*3/uL Normal 150-400 [facility] Comment on above: Order Comment: Speci men Type: BLOOD SPECIMENOrdering Facility: [facility] Address: [address] [place] [address] Performed By: #### 5 7021-8 ####[facility] LABCLIA [id number] [place] [address] RBC (Bld) [#/Vol] 4.28 10*6/uL Normal 3.90-5.20 [facility] Comment on above: Order Comment: Speci men Type: BLOOD SPECIMENOrdering Facility: [facility] Address: [address] [place] [address] Performed By: #### 5 7021-8 ####[facility] LABCLIA [id number] [place] [address] WBC (Bld) [#/Vol] 6.95 10*3/uL Normal 3.70-11.00 [facility] Comment on above: Order Comment: Speci men Type: BLOOD SPECIMENOrdering Facility: [facility] Address: [address] [place] [address] Performed By: #### 5 7021-8 ####[facility] LABCLIA [id number] [place] [address] COPPER BLOODon 10-09-2023 Copper [Mass/Vol] 129 ug/dL Normal 80-155 [facility] Comment on above: Order Comment: Speci men Type: BLOOD SPECIMENOrdering Facility: [facility] Address: [address] [place] [address] Result Comment: This test was developed and its performance characteristics determined by [facility]'s Endy [facility] Pathology and Laboratory Medicine [place] ([facility]). It has not been cleared or approved by the FDA. -[facility] is regulated under CLIA as qualified to perform high-complexity testing. This test is used for clinical purposes. It should not be regarded as investigational or for research. Performed By: #### 5 763-8, COPPER ####[facility] LABCLIA [id number] [place] [address] [place] CRP SerPl-ncon 10-09-2023 CRP [Mass/Vol] mg/L Normal <0.9 [facility] Comment on above: Order Comment: Speci men Type: BLOOD SPECIMENOrdering Facility: [facility] Address: [address] [place] [address] Performed By: #### 1 988-5, 82593-6, 3016-3 ####[facility] LABCLIA [id number] [place] [address] [place] Comprehensive metabolic 2000 panelon 10-09-2023 Albumin [Mass/Vol] 4.6 g/dL Normal 3.9-4.9 [facility] Comment on above: Order Comment: Speci men Type: BLOOD SPECIMENOrdering Facility: [facility] Address: [address] [place] [address] Performed By: #### 2 4323-8, 94878-7, 2777-1 ####[facility] LABCLIA [id number] [place] [address] ALP [Catalytic activity/Vol] 145 U/L High 34-123 [facility] Comment on above: Order Comment: Speci men Type: BLOOD SPECIMENOrdering Facility: [facility] Address: [address] [place] [address] Performed By: #### 2 4323-8, , 2776-05 ####[facility] LABCLIA [id number] [place] [address] ALT [Catalytic activity/Vol] 27 U/L Normal 7-38 [facility] Comment on above: Order Comment: Speci men Type: BLOOD SPECIMENOrdering Facility: [facility] Address: [address] [place] [address] Performed By: #### 2 4323-8, , 2776-05 ####[facility] LABIA [id number] [place] [address] Anion gap [Moles/Vol] 10 mmol/L Normal 9-18 [facility] Comment on above: Order Comment: Speci men Type: BLOOD SPECIMENOrdering Facility: [facility] Address: [address] [place] [address] Performed By: #### 2 4323-8, , 2776-05 ####[facility] LABIA [id number] [place] [address] AST [Catalytic activity/Vol] 24 U/L Normal 13-35 [facility] Comment on above: Order Comment: Speci men Type: BLOOD SPECIMENOrdering Facility: [facility] Address: [address] [place] [address] Performed By: #### 2 4323-8, , 2776-05 ####[facility] LABIA [id number] [place] [address] Bilirubin [Mass/Vol] 0.3 mg/dL Normal 0.2-1.3 [facility] Comment on above: Order Comment: Speci men Type: BLOOD SPECIMENOrdering Facility: [facility] Address: [address] [place] [address] Performed By: #### 2 4323-8, , 2776-05 ####[facility] LABCLIA [id number] [place] [address] Calcium [Mass/Vol] 9.7 mg/dL Normal 8.5-10.2 [facility] Comment on above: Order Comment: Speci men Type: BLOOD SPECIMENOrdering Facility: [facility] Address: [address] [place], [place] [address] Performed By: #### 2 4323-8, , 2776-05 ####[facility] LABIA [id number] [place] [address] Chloride [Moles/Vol] 101 mmol/L Normal 97-105 [facility] Comment on above: Order Comment: Speci men Type: BLOOD SPECIMENOrdering Facility: [facility] Address: [address] [place] [address] Performed By: #### 2 4323-8, , 2776-05 ####[facility] LABIA [id number] [place] [address] CO2 [Moles/Vol] 30 mmol/L Normal 22-30 [facility] Comment on above: Order Comment: Speci men Type: BLOOD SPECIMENOrdering Facility: [facility] Address: [address] [place] [address] Performed By: #### 2 4323-8, , 2776-05 ####[facility] LABCLIA [id number] [place] [address] Creatinine [Mass/Vol] 1.02 mg/dL High 0.58-0.96 [facility] Comment on above: Order Comment: Speci men Type: BLOOD SPECIMENOrdering Facility: [facility] Address: [address] [place] [address] Performed By: #### 2 4323-8, , 2776-05 ####[facility] LABCLIA [id number] [place] [address] Creatinine and Glomerular filtration rate.predicted panel (S/P/Bld) 63 mL/min/1.73m??? Normal >=60 [facility] Comment on above: Order Comment: Nicolle phipps Type: BLOOD SPECIMENOrdering Facility: [facility] Address: [address] [place] [address] Result Comment: Tuyet mated Glomerular Filtration Rate (eGFR) is calculated using the 2020 CKD-EPI creatinine equation. This equation utilizes serum creatinine, sex, and age as parameters. The creatinine assay has traceable calibration to isotope dilution-mass spectrometry. Refer to KDIGO guidelines for clinical interpretation. In patients with unstable renal function, e.g. those with acute kidney injury, the eGFR may not accurately reflect actual GFR. Performed By: #### 2 4323-8, 74126-8, 2777-1 ####[facility] LABIA [id number] [place] [address] Glucose [Mass/Vol] 104 mg/dL High 74-99 [facility] Comment on above: Order Comment: Nicolle phipps Type: BLOOD SPECIMENOrdering Facility: [facility] Address: [address] [place] [address] Result Comment: The [place] Diabetes Association (ADA) provides guidance for cutoff values for fasting glucose and random glucose. The ADA defines fasting as no caloric intake for at least 8 hours. Fasting plasma glucose results between 100 to 125 mg/dL indicate increased risk for diabetes (prediabetes).Fasting plasma glucose results greater than or equal to 126 mg/dL meet the criteria for diagnosis of diabetes. In the absence of unequivocal hyperglycemia, results should be confirmed by repeat testing. In a patient with classic symptoms of hyperglycemia or hyperglycemic crisis, random plasma glucose results greater than or equal to 200 mg/dL meet the criteria for diagnosis of diabetes.Reference: Standards of Medical Care in Diabetes 2016, [place] Diabetes Association. Diabetes Care. 2016.39(Suppl 1). Performed By: #### 2 4323-8, 29912-1, 2777-1 ####[facility] LABCLIA [id number] [place] [address] Potassium [Moles/Vol] 4.3 mmol/L Normal 3.7-5.1 [facility] Comment on above: Order Comment: Speci men Type: BLOOD SPECIMENOrdering Facility: [facility] Address: [address] [place] [address] Performed By: #### 2 4323-8, , 2776-05 ####[facility] LABCLIA [id number] [place] [address] Protein [Mass/Vol] 7.5 g/dL Normal 6.3-8.0 [facility] Comment on above: Order Comment: Speci men Type: BLOOD SPECIMENOrdering Facility: [facility] Address: [address] [place] [address] Performed By: #### 2 4323-8, , 2776-05 ####[facility] LABCLIA [id number] [place] [address] Sodium [Moles/Vol] 141 mmol/L Normal 136-144 [facility] Comment on above: Order Comment: Speci men Type: BLOOD SPECIMENOrdering Facility: [facility] Address: [address] [place] [address] Performed By: #### 2 4323-8, , 2776-05 ####[facility] LABCLIA [id number] [place] [address] Urea nitrogen [Mass/Vol] 35 mg/dL High 7-21 [facility] Comment on above: Order Comment: Speci men Type: BLOOD SPECIMENOrdering Facility: [facility] Address: [address] [place] [address] Performed By: #### 2 4323-8, , 2776-05 ####[facility] LABCLIA [id number] [place] [address] Folate [facility] 10-09-19 24 Folate [Mass/Vol] ng/mL Normal >4.7 [facility] Comment on above: Order Comment: Speci men Type: BLOOD SPECIMENOrdering Facility: [facility] Address: [address] [place] [address] Result Comment: A re sult of > 20 ng/mL is not necessarily indicative of a pathologic or treatable condition: it reflects a limitation of the test methodology.Assay reference range: 4.8 to 24.2 ng/mL. Suitable for detection of folate deficiency.Reference:Folate III (Folate III) [package insert V 1.0 Luxembourgish]. [employer], [place], [place]: March 2015. Performed By: #### 2 132-9, 2284-8, 19248-3 ####[facility] LABIA [id number] [place] [address] [place] Iron and Iron binding capaci ty panel 10-09-2023 Iron [Mass/Vol] 58 ug/dL Normal 41-186 [facility] Comment on above: Order Comment: Speci men Type: BLOOD SPECIMENOrdering Facility: [facility] Address: [address] [place] [address] Performed By: #### 1 988-5, 61535-9, 3016-3 ####[facility] [id number] [place] [address] [place] Iron binding capacity [Mass/Vol] 361 ug/dL Normal 232-386 [facility] Comment on above: Order Comment: Speci men Type: BLOOD SPECIMENOrdering Facility: [facility] Address: [address] [place] [address] Performed By: #### 1 988-5, 11932-0, 3016-3 ####[facility] LABIA [id number] [place] [address] [place] Iron/TIBC [Molar ratio] 16.1 % Normal 15.0-57.0 [facility] Comment on above: Order Comment: Speci men Type: BLOOD SPECIMENOrdering Facility: [facility] Address: [address] [place] [address] Performed By: #### 1 988-5, 54710-9, 3016-3 ####[facility] LABCLIA [id number] [place] [address] [place] Magnesium SerPl-mCncon 10-08 Magnesium [Mass/Vol] 2.5 mg/dL High 1.7-2.3 [facility] Comment on above: Order Comment: Speci men Type: BLOOD SPECIMENOrdering Facility: [facility] Address: [address] [place] [address] Performed By: #### 2 4323-8, 14385-7, 2777-1 ####[facility] LABCLIA [id number] [place] [address] Methylmalonate SerPl-sCncon 10-09-2023 Methylmalonate [Moles/Vol] 0.25 umol/L Normal <=0.40 [facility] Comment on above: Order Comment: Speci men Type: BLOOD SPECIMENOrdering Facility: [facility] Address: [address] [place] [address] Result Comment: This test was developed and its performance characteristics determined by [facility] [place] (RUSTPLMI). It has not been cleared or approved by the FDA. -[facility] is regulated under CLIA as qualified to perform high-complexity testing. This test is used for clinical purposes. It should not be regarded as investigational or for research. Performed By: #### 1 3964-2 ####[facility] LABCLIA [id number] [place] [address] [place] Outside Recordson 10-09-2023 Outside Records [id number]#1.00OTGTI FF Normal [facility] Phosphate SerPl-mCncon 10-08 Phosphate [Mass/Vol] 4.6 mg/dL Normal 2.7-4.8 [facility] Comment on above: Order Comment: Speci men Type: BLOOD SPECIMENOrdering Facility: [facility] Address: [address] [place] [address] Performed By: #### 2 4323-8, 32456-3, 2777-1 ####[facility] LABCLIA [id number] [place] [address] Prealb SerPl-mCncon 10-09-19 24 Prealbumin [Mass/Vol] 25 mg/dL Normal 17-36 [facility] Comment on above: Order Comment: Speci men Type: BLOOD SPECIMENOrdering Facility: [facility] Address: [address] [place] [address] Performed By: #### 2 132-9, 2284-8, 87802-4 ####[facility] LABCLIA [id number] [place] [address] [place] TSH SerPl-aCncon 10-09-2023 TSH Qn 0.169 m[IU]/L Low 0.270-4.200 [facility] Comment on above: Order Comment: Speci men Type: BLOOD SPECIMENOrdering Facility: [facility] Address: [address] [place] [address] Performed By: #### 1 988-5, 11424-7, 3016-3 ####[facility] LABIA [id number] [place] [address] [place] VITAMIN B6/PYRIDOXINon 10-08 VITAMIN B6 73.3 nmol/L Normal 20.0-125.0 [facility] Comment on above: Order Comment: Speci men Type: BLOOD SPECIMENOrdering Facility: [facility] Address: [address] [place] [address] Result Comment: INTE RPRETIVE INFORMATION: Vitamin B6 (Pyridoxal 5-Phosphate)Pyridoxal 5'-phosphate measured in a specimen collected followingan 8-hour or overnight fast accurately indicates vitamin J4chhdmofmjhk status. Non-fasting specimen concentration reflectsrecent vitamin intake.This test was developed and its performance characteristicsdetermined by [employer]. It has not been cleared orapproved by the [place] Food and Drug Administration. This test wasperformed in a CLIA certified laboratory and is intended forclinical purposes.Performed By: [address] [id number] Director: Jeff Martin MD, PhDCLIA Number: [id number] Performed By: #### V ITB6 ####[facility] SYSTEM[facility] [id number] [place] [address] Vit A SerPl-mCncon Retinol [Mass/Vol] 0.67 mg/L Normal 0.30-1.20 [facility] Comment on above: Order Comment: Speci men Type: BLOOD SPECIMENOrdering Facility: [facility] Address: [address] [place] [address] Result Comment: This test was developed and its performance characteristics determined by [facility] [place] (RTPLMI). It has not been cleared or approved by the FDA. -[facility] is regulated under CLIA as qualified to perform high-complexity testing. This test is used for clinical purposes. It should not be regarded as investigational or for research. Performed By: #### 1 823-4, 2923-1 ####[facility] LABCLIA [id number] [place] [address] [place] Vit B12 SerPl-mCncon 024 Cobalamin (Vitamin B12) [Mass/Vol] 748 pg/mL Normal 232-1245 [facility] Comment on above: Order Comment: Speci men Type: BLOOD SPECIMENOrdering Facility: [facility] Address: [address] [place] [address] Performed By: #### 2 132-9, 2284-8, 33310-7 ####[facility] LABCLIA [id number] [place] [address] [place] Zinc SerPl-mCncon 10-09-2023 Zinc [Mass/Vol] 68 ug/dL Normal 60-120 [facility] Comment on above: Order Comment: Speci men Type: BLOOD SPECIMENOrdering Facility: [facility] Address: [address] [place] [address] Result Comment: This test was developed and its performance characteristics determined by [facility] [place] (RUSTPLMI). It has not been cleared or approved by the FDA. [facility] is regulated under CLIA as qualified to perform high-complexity testing. This test is used for clinical purposes. It should not be regarded as investigational or for research. Performed By: #### 5 763-8, COPPER ####[facility] LABCLIA [id number] [place] [address] [place] CNPNon 10-07-2023 CNPN [facility] CNCNPATEDon 10-05-2023 CNCNPATED [facility] CNOVon 10-05-2023 CNOV Normal [facility] Outside Recordson 10-03-2023 Outside Records [id number]#1.00OTGTIFF [facility] Outside Recordson 10-02-2023 Outside Records [id number]#1.00OTGTIFF [facility] XR Abdomen 2 Viewson 024 XR Abdomen 2 Views [facility] Comment on above: Order Comment: for f eeding tube placement POCT Glucose Levelon 024 Glucose [Mass/Vol] 95 mg/dL Normal 74-118 [facility] Comment on above: Result Comment: Resu lt error found and corrected during lab audit 10/01/2023 14:39:02 EDT SD Performed By: #### 4 [id number] ####[facility] (DEFAULT)[address] [place] [address] Coding Summaryon 09-26-2023 Coding Summary [facility] Electrocardiogram-EKGon 08-29 Electrocardiogram-EKG [id number]#1.00OTGTIF F [facility] Lab - Other Lab Resultson Lab - Other Lab Results [id number]#1.00OTGTIF F [facility] Outside Recordson 09-26-2023 Outside Records [id number]#1.00OTGTIF F [facility] Outside Records [id number]#1.00OTGTIF [facility] Outside Records [id number]#1.00OTGTIF F [facility] Outside Records [id number]#1.00OTGTIF [facility] Rad - Other Radiology Report on 09-26-2023 Rad - Other Radiology Report [id number]#1.00OTGTIF [facility] Outside Recordson 09-25-2023 Outside Records [id number]#1.00OTGTI [facility] Provider Orderson 09-22-2023 Provider Orders [id number]#[facility] Outside Recordson 09-21-2023 Outside Records [id number]#1.[facility] ANES POSTPROC EVALon 024 ANES POSTPROC EVAL Normal [facility] CASE MANAGEMon 09-20-2023 CASE MANAGEM Normal [facility] CBC panel Auto (Bld)on 09-19 Erythrocyte distribution width (RBC) [Ratio] 14.5 % Normal 11.5-15.0 [facility] Comment on above: Order Comment: Speci men Type: BLOOD SPECIMENOrdering Facility: [facility] Address: [address] [place] [address] Performed By: #### 5 8410-2 ####[facility] LABIA [id number] [place] [address] [place] Hematocrit (Bld) [Volume fraction] 31.0 % Low 36.0-46.0 [facility] Comment on above: Order Comment: Speci men Type: BLOOD SPECIMENOrdering Facility: [facility] Address: [address] [place] [address] Performed By: #### 5 8410-2 ####[facility] LABIA [id number] [place] [address] [place] Hemoglobin (Bld) [Mass/Vol] 10.5 g/dL Low 11.5-15.5 [facility] Comment on above: Order Comment: Speci men Type: BLOOD SPECIMENOrdering Facility: [facility] Address: [address] [place] [address] Performed By: #### 5 8410-2 ####[facility] LABIA [id number] [place] [address] [place] MCH (RBC) [Entitic mass] 26.9 pg Normal 26.0-34.0 [facility] Comment on above: Order Comment: Speci men Type: BLOOD SPECIMENOrdering Facility: [facility] Address: [address] [place] [address] Performed By: #### 5 8410-2 ####[facility] LABIA [id number] [place] [address] [place] MCHC (RBC) [Mass/Vol] 33.9 g/dL Normal 30.5-36.0 [facility] Comment on above: Order Comment: Speci men Type: BLOOD SPECIMENOrdering Facility: [facility] Address: [address] [place] [address] Performed By: #### 5 8410-2 ####[facility] LABIA [id number] [address] [place] [address] [place] MCV (RBC) [Entitic vol] 79.3 fL Low 80.0-100.0 [facility] Comment on above: Order Comment: Speci men Type: BLOOD SPECIMENOrdering Facility: [facility] Address: [address] [place] [address] Performed By: #### 5 8410-2 ####[facility] LABCLIA [id number] [place] [address] [place] Nucleated RBC (Bld) [#/Vol] 10*3/uL Normal <0.01 [facility] Comment on above: Order Comment: Speci men Type: BLOOD SPECIMENOrdering Facility: [facility] Address: [address] [place] [address] Performed By: #### 5 8410-2 ####[facility] LABCLIA [id number] [place] [address] [place] Platelet mean volume (Bld) [Entitic vol] 9.3 fL Normal 9.0-12.7 [facility] Comment on above: Order Comment: Speci men Type: BLOOD SPECIMENOrdering Facility: [facility] Address: [address] [place] [address] Performed By: #### 5 8410-2 ####[facility] LABIA [id number] [place] [address] [place] Platelets (Bld) [#/Vol] 285 10*3/uL Normal 150-400 [facility] Comment on above: Order Comment: Speci men Type: BLOOD SPECIMENOrdering Facility: [facility] Address: [address] [place] [address] Performed By: #### 5 8410-2 ####[facility] LABCLIA [id number] [place] [address] [place] RBC (Bld) [#/Vol] 3.91 10*6/uL Normal 3.90-5.20 [facility] Comment on above: Order Comment: Speci men Type: BLOOD SPECIMENOrdering Facility: [facility] Address: [address] [place] [address] Performed By: #### 5 8410-2 ####[facility] LABCLIA [id number] [place] [address] [place] WBC (Bld) [#/Vol] 5.68 10*3/uL Normal 3.70-11.00 [facility] Comment on above: Order Comment: Speci men Type: BLOOD SPECIMENOrdering Facility: [facility] Address: [address] [place] [address] Performed By: #### 5 8410-2 ####[facility] LABCLIA [id number] [place] [address] [place] CNDSon 09-20-2023 CNDS Normal [facility] Coding Queryon 09-20-2023 Coding Query Normal [facility] Magnesium SerPl-mCncon 09-19 Magnesium [Mass/Vol] 2.1 mg/dL Normal 1.7-2.3 [facility] Comment on above: Order Comment: Speci men Type: BLOOD SPECIMENOrdering Facility: [facility] Address: [address] [place] [address] Performed By: #### 1 9123-9, 77305-5 ####[facility] LABCLIA [id number] [place] [address] [place] Magnesium [Mass/Vol] 2.0 mg/dL Normal 1.7-2.3 [facility] Comment on above: Order Comment: Speci men Type: BLOOD SPECIMENOrdering Facility: [facility] Address: [address] [place] [address] Performed By: #### 2 4362-6, 07006-9 ####[facility] LABCLIA [id number] [place] [address] [place] Renal function 2000 panelon 09-20-2023 Albumin [Mass/Vol] 3.7 g/dL Low 3.9-4.9 [facility] Comment on above: Order Comment: Speci men Type: BLOOD SPECIMENOrdering Facility: [facility] Address: [address] [place] [address] Performed By: #### 1 9123-9, 69358-0 ####[facility] LABCLIA [id number] [place] [address] [place] Anion gap [Moles/Vol] 13 mmol/L Normal 9-18 [facility] Comment on above: Order Comment: Speci men Type: BLOOD SPECIMENOrdering Facility: [facility] Address: [address] [place] [address] Performed By: #### 1 9123-9, 45993-3 ####[facility] LABCLIA [id number] [place] [address] [place] Calcium [Mass/Vol] 9.5 mg/dL Normal 8.5-10.2 [facility] Comment on above: Order Comment: Speci men Type: BLOOD SPECIMENOrdering Facility: [facility] Address: [address] [place] [address] Performed By: #### 1 9123-9, 39693-5 ####[facility] LABCLIA [id number] [place] [address] [place] Chloride [Moles/Vol] 102 mmol/L Normal 97-105 [facility] Comment on above: Order Comment: Speci men Type: BLOOD SPECIMENOrdering Facility: [facility] Address: [address] [place], [place] [address] Performed By: #### 1 9123-9, 73916-4 ####[facility] LABCLIA [id number] [place] [address] [place] CO2 [Moles/Vol] 24 mmol/L Normal 22-30 [facility] Comment on above: Order Comment: Speci men Type: BLOOD SPECIMENOrdering Facility: [facility] Address: [address] [place] [address] Performed By: #### 1 9123-9, 60075-0 ####[facility] LABIA [id number] [place] [id number] [place] Creatinine [Mass/Vol] 0.83 mg/dL Normal 0.58-0.96 [facility] Comment on above: Order Comment: Speci men Type: BLOOD SPECIMENOrdering Facility: [facility] Address: [address] [place] [address] Performed By: #### 1 9123-9, 99735-3 ####[facility] [id number] [place] [address] [place] Creatinine and Glomerular filtration rate.predicted panel (S/P/Bld) 80 mL/min/1.73m??? Normal >=60 [facility] Comment on above: Order Comment: Nicolle phipps Type: BLOOD SPECIMENOrdering Facility: [facility] [facility] Address: [address] [place] [address] Result Comment: Tuyet mated Glomerular Filtration Rate (eGFR) is calculated using the 2020 CKD-EPI creatinine equation. This equation utilizes serum creatinine, sex, and age as parameters. The creatinine assay has traceable calibration to isotope dilution-mass spectrometry. Refer to KDIGO guidelines for clinical interpretation. In patients with unstable renal function, e.g. those with acute kidney injury, the eGFR may not accurately reflect actual GFR. Performed By: #### 1 9123-9, 47088-4 ####[facility] LABIA [id number] [place] [id number] [place] Glucose [Mass/Vol] 95 mg/dL Normal 74-99 [facility] Comment on above: Order Comment: Heribertoi men Type: BLOOD SPECIMENOrdering Facility: [facility] Address: [address] [place] [address] Result Comment: The [place] Diabetes Association (ADA) provides guidance for cutoff values for fasting glucose and random glucose. The ADA defines fasting as no caloric intake for at least 8 hours. Fasting plasma glucose results between 100 to 125 mg/dL indicate increased risk for diabetes (prediabetes).Fasting plasma glucose results greater than or equal to 126 mg/dL meet the criteria for diagnosis of diabetes. In the absence of unequivocal hyperglycemia, results should be confirmed by repeat testing. In a patient with classic symptoms of hyperglycemia or hyperglycemic crisis, random plasma glucose results greater than or equal to 200 mg/dL meet the criteria for diagnosis of diabetes.Reference: Standards of Medical Care in Diabetes 2016, [place] Diabetes Association. Diabetes Care. 2016.39(Suppl 1). Performed By: #### 1 9123-9, 59373-5 ####[facility] LABCLIA [id number] [address] [address] [place] Phosphate [Mass/Vol] 3.1 mg/dL Normal 2.7-4.8 [facility] Comment on above: Order Comment: Speci men Type: BLOOD SPECIMENOrdering Facility: [facility] Address: [address] [place] [address] Performed By: #### 1 9123, ####[facility] LABIA [id number] [address] [address] [place] Potassium [Moles/Vol] 3.9 mmol/L Normal 3.7-5.1 [facility] Comment on above: Order Comment: Speci men Type: BLOOD SPECIMENOrdering Facility: [facility] Address: [address] [place], [place] [address] Performed By: #### 1 91239, ####[facility] LABIA [id number] [address] [address] [place] Sodium [Moles/Vol] 139 mmol/L Normal 136-144 [facility] Comment on above: Order Comment: Speci men Type: BLOOD SPECIMENOrdering Facility: [facility] Address: [address] [place] [address] Performed By: #### 1 9123-9, 98246-7 ####[facility] LABIA [id number] [place] [address] [place] Urea nitrogen [Mass/Vol] 18 mg/dL Normal 7-21 [facility] Comment on above: Order Comment: Speci men Type: BLOOD SPECIMENOrdering Facility: [facility] Address: [address] [place] [address] Performed By: #### 1 9123-9, 89474-1 ####[facility] LABCLIA [id number] [place] [address] [place] Albumin [Mass/Vol] 3.4 g/dL Low 3.9-4.9 [facility] Comment on above: Order Comment: Speci men Type: BLOOD SPECIMENOrdering Facility: [facility] Address: [address] [place] [address] Performed By: #### 2 4362-6, ####[facility] LABCLIA [id number] [place] [address] [place] Anion gap [Moles/Vol] 12 mmol/L Normal 9-18 [facility] Comment on above: Order Comment: Speci men Type: BLOOD SPECIMENOrdering Facility: [facility] Address: [address] [place] [address] Performed By: #### 2 4362-6, ####[facility] LABCLIA [id number] [place] [address] [place] Calcium [Mass/Vol] 9.0 mg/dL Normal 8.5-10.2 [facility] Comment on above: Order Comment: Speci men Type: BLOOD SPECIMENOrdering Facility: [facility] Address: [address] [place] [address] Performed By: #### 2 4362-6, ####[facility] LABCLIA [id number] [place] [id number] [place] Chloride [Moles/Vol] 103 mmol/L Normal 97-105 [facility] Comment on above: Order Comment: Speci men Type: BLOOD SPECIMENOrdering Facility: [facility] Address: [address] [place] [address] Performed By: #### 2 4362-6, ####[facility] LABCLIA [id number] [place] [id number] [place] CO2 [Moles/Vol] 22 mmol/L Normal 22-30 [facility] Comment on above: Order Comment: Speci men Type: BLOOD SPECIMENOrdering Facility: [facility] Address: [address] [place] [address] Performed By: #### 2 4362-6, ####[facility] LABIA [id number] [place] [address] [place] Creatinine [Mass/Vol] 0.69 mg/dL Normal 0.58-0.96 [facility] Comment on above: Order Comment: Speci men Type: BLOOD SPECIMENOrdering Facility: [facility] Address: [address] [place] [address] Performed By: #### 2 4362-6, ####[facility] LABIA [id number] [address] [place] Creatinine and Glomerular filtration rate.predicted panel (S/P/Bld) 99 mL/min/1.73m??? Normal >=60 [facility] Comment on above: Order Comment: Speci men Type: BLOOD SPECIMENOrdering Facility: [facility] Address: [address] [place] [address] Result Comment: Tuyet mated Glomerular Filtration Rate (eGFR) is calculated using the 2020 CKD-EPI creatinine equation. This equation utilizes serum creatinine, sex, and age as parameters. The creatinine assay has traceable calibration to isotope dilution-mass spectrometry. Refer to KDIGO guidelines for clinical interpretation. In patients with unstable renal function, e.g. those with acute kidney injury, the eGFR may not accurately reflect actual GFR. Performed By: #### 2 4362-6, ####[facility] LABCLIA [id number] [address] [address] [place] Glucose [Mass/Vol] 97 mg/dL Normal 74-99 [facility] Comment on above: Order Comment: Speci men Type: BLOOD SPECIMENOrdering Facility: [facility] Address: [address] [place] [address] Result Comment: The [place] Diabetes Association (ADA) provides guidance for cutoff values for fasting glucose and random glucose. The ADA defines fasting as no caloric intake for at least 8 hours. Fasting plasma glucose results between 100 to 125 mg/dL indicate increased risk for diabetes (prediabetes).Fasting plasma glucose results greater than or equal to 126 mg/dL meet the criteria for diagnosis of diabetes. In the absence of unequivocal hyperglycemia, results should be confirmed by repeat testing. In a patient with classic symptoms of hyperglycemia or hyperglycemic crisis, random plasma glucose results greater than or equal to 200 mg/dL meet the criteria for diagnosis of diabetes.Reference: Standards of Medical Care in Diabetes 2016, [place] Diabetes Association. Diabetes Care. 2016.39(Suppl 1). Performed By: #### 2 4362-6, ####[facility] LABIA [id number] [place] [id number] [place] Phosphate [Mass/Vol] 2.8 mg/dL Normal 2.7-4.8 [facility] Comment on above: Order Comment: Speci men Type: BLOOD SPECIMENOrdering Facility: [facility] Address: [address] [place] [address] Performed By: #### 2 4362-6, ####[facility] LABIA [id number] [address] [address] [place] Potassium [Moles/Vol] 3.6 mmol/L Low 3.7-5.1 [facility] Comment on above: Order Comment: Speci men Type: BLOOD SPECIMENOrdering Facility: [facility] Address: [address] [place] [address] Performed By: #### 2 4362-6, ####[facility] LABCLIA [id number] [address] [address] [place] Sodium [Moles/Vol] 137 mmol/L Normal 136-144 [facility] Comment on above: Order Comment: Speci men Type: BLOOD SPECIMENOrdering Facility: [facility] Address: [address] [place] [address] Performed By: #### 2 4362-6, ####[facility] LABCLIA [id number] [place] [id number] [place] Urea nitrogen [Mass/Vol] 15 mg/dL Normal 7-21 [facility] Comment on above: Order Comment: Speci men Type: BLOOD SPECIMENOrdering Facility: [facility] Address: [address] [place] [address] Performed By: #### 2 4362-6, ####[facility] LABIA [id number] [place] [id number] [place] XR ABDOMEN 1V SUPINEon 09-19 XR ABDOMEN 1V SUPINE Normal [facility] ANES PRE-OPon 09-19-2023 ANES PRE-OP Normal [facility] CASE MANAGEMon 09-19-2023 CASE MANAGEM Normal [facility] CBC panel Auto (Bld)on 09-18 Erythrocyte distribution width (RBC) [Ratio] 14.5 % Normal 11.5-15.0 [facility] Comment on above: Order Comment: Speci men Type: BLOOD SPECIMENOrdering Facility: [facility] Address: [address] [place] [address] Performed By: #### 5 8410-2 ####[facility] LABIA [id number] [place] [id number] [place] Hematocrit (Bld) [Volume fraction] 31.2 % Low 36.0-46.0 [facility] Comment on above: Order Comment: Speci men Type: BLOOD SPECIMENOrdering Facility: [facility] Address: [address] [place] [address] Performed By: #### 5 8410-2 ####[facility] LABCLIA [id number] [place] [address] [place] Hemoglobin (Bld) [Mass/Vol] 10.6 g/dL Low 11.5-15.5 [facility] Comment on above: Order Comment: Speci men Type: BLOOD SPECIMENOrdering Facility: [facility] Address: [address] [place] [address] Performed By: #### 5 8410-2 ####[facility] LABCLIA [id number] [place] [address] [place] MCH (RBC) [Entitic mass] 27.4 pg Normal 26.0-34.0 [facility] Comment on above: Order Comment: Speci men Type: BLOOD SPECIMENOrdering Facility: [facility] Address: [address] [place] [address] Performed By: #### 5 8410-2 ####[facility] LABCLIA [id number] [place] [address] [place] MCHC (RBC) [Mass/Vol] 34.0 g/dL Normal 30.5-36.0 [facility] Comment on above: Order Comment: Speci men Type: BLOOD SPECIMENOrdering Facility: [facility] Address: [address] [place] [address] Performed By: #### 5 8410-2 ####[facility] LABCLIA [id number] [place] [address] [place] MCV (RBC) [Entitic vol] 80.6 fL Normal 80.0-100.0 [facility] Comment on above: Order Comment: Speci men Type: BLOOD SPECIMENOrdering Facility: [facility] Address: [address] [place] [address] Performed By: #### 5 8410-2 ####[facility] LABCLIA [id number] [place] [address] [place] Nucleated RBC (Bld) [#/Vol] 10*3/uL Normal <0.01 [facility] Comment on above: Order Comment: Speci men Type: BLOOD SPECIMENOrdering Facility: [facility] Address: [address] [place] [address] Performed By: #### 5 8410-2 ####[facility] LABIA [id number] [place] [address] [place] Platelet mean volume (Bld) [Entitic vol] 9.3 fL Normal 9.0-12.7 [facility] Comment on above: Order Comment: Speci men Type: BLOOD SPECIMENOrdering Facility: [facility] Address: [address] [place] [address] Performed By: #### 5 8410-2 ####[facility] [id number] [place] [address] [place] Platelets (Bld) [#/Vol] 257 10*3/uL Normal 150-400 [facility] Comment on above: Order Comment: Speci men Type: BLOOD SPECIMENOrdering Facility: [facility] Address: [address] [place] [address] Performed By: #### 5 8410-2 ####[facility] [id number] [place] [address] [place] RBC (Bld) [#/Vol] 3.87 10*6/uL Low 3.90-5.20 [facility] Comment on above: Order Comment: Speci men Type: BLOOD SPECIMENOrdering Facility: [facility] Address: [address] [place] [address] Performed By: #### 5 8410-2 ####[facility] LABIA [id number] [place] [address] [place] WBC (Bld) [#/Vol] 5.66 10*3/uL Normal 3.70-11.00 [facility] Comment on above: Order Comment: Nicolle phipps Type: BLOOD SPECIMENOrdering Facility: [facility] Address: [address] [place] [address] Performed By: #### 5 8410-2 ####[facility] LABCLIA [id number] [place] [address] [place] Magnesium SerPl-mCncon 09-18 Magnesium [Mass/Vol] 1.9 mg/dL Normal 1.7-2.3 [facility] Comment on above: Order Comment: Nicolle phipps Type: BLOOD SPECIMENOrdering Facility: [facility] Address: [address] [place] [address] Performed By: #### 2 4362-6, 31820-8 ####[facility] LABCLIA [id number] [place] [address] [place] NURSING PROGon 09-19-2023 NURSING PROG Normal [facility] PT panel Coag (PPP)on 2023 INR Coag (PPP) [Relative time] 1.1 {INR} Normal 0.9-1.3 [facility] Comment on above: Order Comment: Nicolle phipps Type: BLOOD SPECIMENOrdering Facility: [facility] Address: [address] [place] [address] Result Comment: Suze min K Antagonist (VKA) Therapeutic Range: INR 2 to 3 (Target INR of 2.5)Note: For patients treated with VKA drugs, such as warfarin, the [place] [employer] Chest [employer]icians 2012 Guideline recommends a therapeutic INR range of 2 to 3 (target INR of 2.5). This recommendation includes high-risk patients with antiphospholipid syndrome with previous arterial or venous thromboembolism, current-generation mechanical or bioprosthetic aortic heart valve replacement.Note: Patients with mechanical aortic valve replacement and additional risk factors for thromboembolic events (atrial fibrillation, previous thromboembolism, LV dysfunction, hypercoagulable conditions) or an older generation mechanical AVR (i.e., ball in-Cage) or any mechanical MVR should have a INR therapeutic range of 2.5 to 3.5 (target INR of 3).Rober GH, et al. Chest 2012, 141:7S-47SNishimura RA, et al. [facility] 2017, 70: 252-289 Performed By: #### 3 4528-0 ####[facility] LABCLIA [id number] [address] [address] [place] PT Coag (PPP) [Time] 11.4 s Normal 9.7-13.0 [facility] Comment on above: Order Comment: Speci men Type: BLOOD SPECIMENOrdering Facility: [facility] Address: [address] [place] [address] Performed By: #### 3 4528-0 ####[facility] LABCLIA [id number] [place] [address] [place] Renal function 2000 panelon 09-19-2023 Albumin [Mass/Vol] 3.5 g/dL Low 3.9-4.9 [facility] Comment on above: Order Comment: Speci men Type: BLOOD SPECIMENOrdering Facility: [facility] Address: [address] [place] [address] Performed By: #### 2 4362-6, ####[facility] LABIA [id number] [place] [address] [place] Anion gap [Moles/Vol] 12 mmol/L Normal 9-18 [facility] Comment on above: Order Comment: Speci men Type: BLOOD SPECIMENOrdering Facility: [facility] Address: [address] [place] [address] Performed By: #### 2 4362-6, ####[facility] LABIA [id number] [place] [address] [place] Calcium [Mass/Vol] 9.2 mg/dL Normal 8.5-10.2 [facility] Comment on above: Order Comment: Speci men Type: BLOOD SPECIMENOrdering Facility: [facility] Address: [address] [place] [address] Performed By: #### 2 4362-6, ####[facility] LABCLIA [id number] [place] [id number] [place] Chloride [Moles/Vol] 103 mmol/L Normal 97-105 [facility] Comment on above: Order Comment: Speci men Type: BLOOD SPECIMENOrdering Facility: [facility] Address: [address] [place] [address] Performed By: #### 2 4362-6, ####[facility] LABCLIA [id number] [place] [address] [place] CO2 [Moles/Vol] 22 mmol/L Normal 22-30 [facility] Comment on above: Order Comment: Speci men Type: BLOOD SPECIMENOrdering Facility: [facility] Address: [address] [place] [address] Performed By: #### 2 4362-6, ####[facility] LABCLIA [id number] [place] [address] [place] Creatinine [Mass/Vol] 0.65 mg/dL Normal 0.58-0.96 [facility] Comment on above: Order Comment: Speci men Type: BLOOD SPECIMENOrdering Facility: [facility] Address: [address] [place] [address] Performed By: #### 2 4362-6, ####[facility] LABCLIA [id number] [place] [address] [place] Creatinine and Glomerular filtration rate.predicted panel (S/P/Bld) 100 mL/min/1.73m??? Normal >=60 [facility] Comment on above: Order Comment: Speci men Type: BLOOD SPECIMENOrdering Facility: [facility] Address: [address] [place] [address] Result Comment: Tuyet mated Glomerular Filtration Rate (eGFR) is calculated using the 2020 CKD-EPI creatinine equation. This equation utilizes serum creatinine, sex, and age as parameters. The creatinine assay has traceable calibration to isotope dilution-mass spectrometry. Refer to KDIGO guidelines for clinical interpretation. In patients with unstable renal function, e.g. those with acute kidney injury, the eGFR may not accurately reflect actual GFR. Performed By: #### 2 4362-6, ####[facility] LABIA [id number] [place] [address] [place] Glucose [Mass/Vol] 71 mg/dL Low 74-99 [facility] Comment on above: Order Comment: Speci men Type: BLOOD SPECIMENOrdering Facility: [facility] Address: [address] [place] [address] Result Comment: The [place] Diabetes Association (ADA) provides guidance for cutoff values for fasting glucose and random glucose. The ADA defines fasting as no caloric intake for at least 8 hours. Fasting plasma glucose results between 100 to 125 mg/dL indicate increased risk for diabetes (prediabetes).Fasting plasma glucose results greater than or equal to 126 mg/dL meet the criteria for diagnosis of diabetes. In the absence of unequivocal hyperglycemia, results should be confirmed by repeat testing. In a patient with classic symptoms of hyperglycemia or hyperglycemic crisis, random plasma glucose results greater than or equal to 200 mg/dL meet the criteria for diagnosis of diabetes.Reference: Standards of Medical Care in Diabetes 2016, [place] Diabetes Association. Diabetes Care. 2016.39(Suppl 1). Performed By: #### 2 4362-6, ####[facility] LABIA [id number] [place] [address] [place] Phosphate [Mass/Vol] 3.5 mg/dL Normal 2.7-4.8 [facility] Comment on above: Order Comment: Speci men Type: BLOOD SPECIMENOrdering Facility: [facility] Address: [address] [place] [address] Performed By: #### 2 4362-6, ####[facility] LABIA [id number] [place] [id number] [place] Potassium [Moles/Vol] 3.9 mmol/L Normal 3.7-5.1 [facility] Comment on above: Order Comment: Speci men Type: BLOOD SPECIMENOrdering Facility: [facility] Address: [address] [place], [place] [address] Performed By: #### 2 4362-6, ####[facility] LABCLIA [id number] [place] [address] [place] Sodium [Moles/Vol] 137 mmol/L Normal 136-144 [facility] Comment on above: Order Comment: Speci men Type: BLOOD SPECIMENOrdering Facility: [facility] Address: [address] [place] [address] Performed By: #### 2 4362-6, ####[facility] LABCLIA [id number] [place] [address] [place] Urea nitrogen [Mass/Vol] 14 mg/dL Normal 7-21 [facility] Comment on above: Order Comment: Speci men Type: BLOOD SPECIMENOrdering Facility: [facility] Address: [address] [place] [address] Performed By: #### 2 4362-6, ####[facility] LABCLIA [id number] [place] [address] [place] Upper GI endoscopyon 024 Upper GI endoscopy Normal [facility] XR ABDOMEN 1V SUPINEon 09-18 XR ABDOMEN 1V SUPINE Normal [facility] CASE MGT INIT ASSESon 2023 CASE MGT INIT ASSES Normal [facility] CBC panel Auto (Bld)on 09-17 Erythrocyte distribution width (RBC) [Ratio] 14.5 % Normal 11.5-15.0 [facility] Comment on above: Order Comment: Speci men Type: BLOOD SPECIMENOrdering Facility: [facility] Address: [address] [place] [address] Performed By: #### 5 8410-2 ####[facility] LABCLIA [id number] [place] [address] [place] Hematocrit (Bld) [Volume fraction] 32.2 % Low 36.0-46.0 [facility] Comment on above: Order Comment: Speci men Type: BLOOD SPECIMENOrdering Facility: [facility] Address: [address] [place] [address] Performed By: #### 5 8410-2 ####[facility] LABIA [id number] [place] [address] [place] Hemoglobin (Bld) [Mass/Vol] 10.5 g/dL Low 11.5-15.5 [facility] Comment on above: Order Comment: Speci men Type: BLOOD SPECIMENOrdering Facility: [facility] Address: [address] [place] [address] Performed By: #### 5 8410-2 ####[facility] LABIA [id number] [place] [address] [place] MCH (RBC) [Entitic mass] 26.7 pg Normal 26.0-34.0 [facility] Comment on above: Order Comment: Speci men Type: BLOOD SPECIMENOrdering Facility: [facility] Address: [address] [place] [address] Performed By: #### 5 8410-2 ####[facility] LABIA [id number] [place] [address] [place] MCHC (RBC) [Mass/Vol] 32.6 g/dL Normal 30.5-36.0 [facility] Comment on above: Order Comment: Speci men Type: BLOOD SPECIMENOrdering Facility: [facility] Address: [address] [place] [address] Performed By: #### 5 8410-2 ####[facility] LABCLIA [id number] [place] [address] [place] MCV (RBC) [Entitic vol] 81.9 fL Normal 80.0-100.0 [facility] Comment on above: Order Comment: Speci men Type: BLOOD SPECIMENOrdering Facility: [facility] Address: [address] [place] [address] Performed By: #### 5 8410-2 ####[facility] LABIA [id number] [place] [address] [place] Nucleated RBC (Bld) [#/Vol] 10*3/uL Normal <0.01 [facility] Comment on above: Order Comment: Speci men Type: BLOOD SPECIMENOrdering Facility: [facility] Address: [address] [place] [address] Performed By: #### 5 8410-2 ####[facility] LABIA [id number] [place] [address] [place] Platelet mean volume (Bld) [Entitic vol] 9.8 fL Normal 9.0-12.7 [facility] Comment on above: Order Comment: Speci men Type: BLOOD SPECIMENOrdering Facility: [facility] Address: [address] [place] [address] Performed By: #### 5 8410-2 ####[facility] LABIA [id number] [place] [address] [place] Platelets (Bld) [#/Vol] 262 10*3/uL Normal 150-400 [facility] Comment on above: Order Comment: Speci men Type: BLOOD SPECIMENOrdering Facility: [facility] Address: [address] [place] [address] Performed By: #### 5 8410-2 ####[facility] LABCLIA [id number] [place] [address] [place] RBC (Bld) [#/Vol] 3.93 10*6/uL Normal 3.90-5.20 [facility] Comment on above: Order Comment: Speci men Type: BLOOD SPECIMENOrdering Facility: [facility] Address: [address] [place] [address] Performed By: #### 5 8410-2 ####[facility] LABCLIA [id number] [place] [address] [place] WBC (Bld) [#/Vol] 6.84 10*3/uL Normal 3.70-11.00 [facility] Comment on above: Order Comment: Speci men Type: BLOOD SPECIMENOrdering Facility: [facility] Address: [address] [place] [address] Performed By: #### 5 8410-2 ####[facility] LABCLIA [id number] [place] [address] [place] Magnesium SerPl-ncon 09-17 Magnesium [Mass/Vol] 2.0 mg/dL Normal 1.7-2.3 [facility] Comment on above: Order Comment: Speci men Type: BLOOD SPECIMENOrdering Facility: [facility] Address: [address] [place] [address] Performed By: #### 1 9123-9, 79054-3 ####[facility] LABIA [id number] [place] [address] [place] NURSING PROGon 09-18-2023 NURSING PROG Normal [facility] NURSING PROG Normal [facility] NUTRITIONon 09-18-2023 NUTRITION Normal [facility] Outside Recordson 09-18-2023 Outside Records [id number] Normal [facility] Renal function 2000 panelon 09-18-2023 Albumin [Mass/Vol] 3.5 g/dL Low 3.9-4.9 [facility] Comment on above: Order Comment: Speci men Type: BLOOD SPECIMENOrdering Facility: [facility] Address: [address] [place] [address] Performed By: #### 1 9123-9, 57360-5 ####[facility] LABCLIA [id number] [place] [address] [place] Anion gap [Moles/Vol] 14 mmol/L Normal 9-18 [facility] Comment on above: Order Comment: Speci men Type: BLOOD SPECIMENOrdering Facility: [facility] Address: [address] [place] [address] Performed By: #### 1 9123-9, 66241-2 ####[facility] LABCLIA [id number] [place] [address] [place] Calcium [Mass/Vol] 9.1 mg/dL Normal 8.5-10.2 [facility] Comment on above: Order Comment: Speci men Type: BLOOD SPECIMENOrdering Facility: [facility] Address: [address] [place] [address] Performed By: #### 1 9123-9, 51816-2 ####[facility] LABCLIA [id number] [place] [address] [place] Chloride [Moles/Vol] 102 mmol/L Normal 97-105 [facility] Comment on above: Order Comment: Speci men Type: BLOOD SPECIMENOrdering Facility: [facility] Address: [address] [place] [address] Performed By: #### 1 9123-9, 73710-8 ####[facility] LABCLIA [id number] [place] [address] [place] CO2 [Moles/Vol] 21 mmol/L Low 22-30 [facility] Comment on above: Order Comment: Speci men Type: BLOOD SPECIMENOrdering Facility: [facility] Address: [address] [place], [place] [address] Performed By: #### 1 9123-9, 14170-5 ####[facility] LABCLIA [id number] [address] STATES OF [facility] Creatinine [Mass/Vol] 0.76 mg/dL Normal 0.58-0.96 [facility] Comment on above: Order Comment: Nicolle phipps Type: BLOOD SPECIMENOrdering Facility: [facility] Address: [address] [place] [address] Performed By: #### 1 9123-9, 65095-7 ####[facility] LABIA [id number] [address] Creatinine and Glomerular filtration rate.predicted panel (S/P/Bld) 89 mL/min/1.73m??? Normal >=60 [facility] Comment on above: Order Comment: Nicolle phipps Type: BLOOD SPECIMENOrdering Facility: [facility] Address: [address] [place] [address] Result Comment: Tuyet mated Glomerular Filtration Rate (eGFR) is calculated using the 2020 CKD-EPI creatinine equation. This equation utilizes serum creatinine, sex, and age as parameters. The creatinine assay has traceable calibration to isotope dilution-mass spectrometry. Refer to KDIGO guidelines for clinical interpretation. In patients with unstable renal function, e.g. those with acute kidney injury, the eGFR may not accurately reflect actual GFR. Performed By: #### 1 9123-9, 79582-4 ####[facility] LABCLIA [id number] [place] [address] [place] Glucose [Mass/Vol] 76 mg/dL Normal 74-99 [facility] Comment on above: Order Comment: Nicolle phipps Type: BLOOD SPECIMENOrdering Facility: [facility] Address: [address] [place] [address] Result Comment: The [place] Diabetes Association (ADA) provides guidance for cutoff values for fasting glucose and random glucose. The ADA defines fasting as no caloric intake for at least 8 hours. Fasting plasma glucose results between 100 to 125 mg/dL indicate increased risk for diabetes (prediabetes).Fasting plasma glucose results greater than or equal to 126 mg/dL meet the criteria for diagnosis of diabetes. In the absence of unequivocal hyperglycemia, results should be confirmed by repeat testing. In a patient with classic symptoms of hyperglycemia or hyperglycemic crisis, random plasma glucose results greater than or equal to 200 mg/dL meet the criteria for diagnosis of diabetes.Reference: Standards of Medical Care in Diabetes 2016, [place] Diabetes Association. Diabetes Care. 2016.39(Suppl 1). Performed By: #### 1 9123-9, 11553-5 ####[facility] LABCLIA [id number] [place] [address] [place] Phosphate [Mass/Vol] 4.3 mg/dL Normal 2.7-4.8 [facility] Comment on above: Order Comment: Speci men Type: BLOOD SPECIMENOrdering Facility: [facility] Address: [address] [place] [address] Performed By: #### 1 9123-9, 90651-3 ####[facility] LABCLIA [id number] [place] [address] [place] Potassium [Moles/Vol] 4.4 mmol/L Normal 3.7-5.1 [facility] Comment on above: Order Comment: Speci men Type: BLOOD SPECIMENOrdering Facility: [facility] Address: [address] [place] [address] Performed By: #### 1 9123-9, 23334-5 ####[facility] LABCLIA [id number] [place] [address] [place] Sodium [Moles/Vol] 137 mmol/L Normal 136-144 [facility] Comment on above: Order Comment: Speci men Type: BLOOD SPECIMENOrdering Facility: [facility] Address: [address] [place] [address] Performed By: #### 1 9123-9, 20708-2 ####[facility] LABCLIA [id number] [address] [address] [place] Urea nitrogen [Mass/Vol] 16 mg/dL Normal 7-21 [facility] Comment on above: Order Comment: Speci men Type: BLOOD SPECIMENOrdering Facility: [facility] Address: [address] [place] [address] Performed By: #### 1 9123-9, 02910-5 ####[facility] LABCLIA [id number] [place] [address] [place] TYPE + SCREENon 09-18-2023 ABO A Normal [facility] Comment on above: Order Comment: Speci men Type: BLOOD SPECIMENOrdering Facility: [facility] Address: [address] [place] [address] Performed By: #### T SCR ####[facility] BLOOD BANKCLIA [id number] [address] [place] HISTORICAL AB SCR STATUS Negative Normal [facility] Comment on above: Order Comment: Speci men Type: BLOOD SPECIMENOrdering Facility: [facility] Address: [address] [place] [address] Performed By: #### T SCR ####[facility] BLOOD BANKCLIA [id number] [place] [address] [place] Rh Nom (Bld) Positive Normal [facility] Comment on above: Order Comment: Speci men Type: BLOOD SPECIMENOrdering Facility: [facility] Address: [address] [place] [address] Performed By: #### T SCR ####[facility] BLOOD BANKCLIA [id number] [place] [address] [place] TYPE AND SCREEN EXPIRATION 09/21/2023 23:59 Normal [facility] Comment on above: Order Comment: Speci men Type: BLOOD SPECIMENOrdering Facility: [facility] Address: [address] [place] [address] Performed By: #### T SCR ####[facility] BLOOD BANKCLIA [id number] [place] [address] [place] C Bloodon 09-17-2023 C Blood No growth at 5 Days Normal [facility] Comment on above: Performed By: #### 6 184842 ####[facility] (DEFAULT)[address] [place] [address] CBC panel Auto (Bld)on 09-16 Erythrocyte distribution width (RBC) [Ratio] 14.4 % Normal 11.5-15.0 [facility] Comment on above: Order Comment: Speci men Type: BLOOD SPECIMENOrdering Facility: [facility] Address: [address] [place] [address] Performed By: #### 5 8410-2 ####[facility] LABIA [id number] [place] [address] [place] Hematocrit (Bld) [Volume fraction] 33.0 % Low 36.0-46.0 [facility] Comment on above: Order Comment: Speci men Type: BLOOD SPECIMENOrdering Facility: [facility] Address: [address] [place] [address] Performed By: #### 5 8410-2 ####[facility] LABIA [id number] [place] [address] [place] Hemoglobin (Bld) [Mass/Vol] 10.8 g/dL Low 11.5-15.5 [facility] Comment on above: Order Comment: Speci men Type: BLOOD SPECIMENOrdering Facility: [facility] Address: [address] [place] [address] Performed By: #### 5 8410-2 ####[facility] LABIA [id number] [place] [address] [place] MCH (RBC) [Entitic mass] 27.2 pg Normal 26.0-34.0 [facility] Comment on above: Order Comment: Speci men Type: BLOOD SPECIMENOrdering Facility: [facility] Address: [address] [place] [address] Performed By: #### 5 8410-2 ####[facility] LABIA [id number] [place] [id number] [address] [place] MCHC (RBC) [Mass/Vol] 32.7 g/dL Normal 30.5-36.0 [facility] Comment on above: Order Comment: Speci men Type: BLOOD SPECIMENOrdering Facility: [facility] Address: [address] [place] [address] Performed By: #### 5 8410-2 ####[facility] LABCLIA [id number] [place] [address] [place] MCV (RBC) [Entitic vol] 83.1 fL Normal 80.0-100.0 [facility] Comment on above: Order Comment: Speci men Type: BLOOD SPECIMENOrdering Facility: [facility] Address: [address] [place] [address] Performed By: #### 5 8410-2 ####[facility] LABCLIA [id number] [place] [address] [place] Nucleated RBC (Bld) [#/Vol] 10*3/uL Normal <0.01 [facility] Comment on above: Order Comment: Speci men Type: BLOOD SPECIMENOrdering Facility: [facility] Address: [address] [place] [address] Performed By: #### 5 8410-2 ####[facility] LABCLIA [id number] [place] [address] [place] Platelet mean volume (Bld) [Entitic vol] 10.2 fL Normal 9.0-12.7 [facility] Comment on above: Order Comment: Speci men Type: BLOOD SPECIMENOrdering Facility: [facility] Address: [address] [place] [address] Performed By: #### 5 8410-2 ####[facility] LABCLIA [id number] [place] [address] [place] Platelets (Bld) [#/Vol] 273 10*3/uL Normal 150-400 [facility] Comment on above: Order Comment: Speci men Type: BLOOD SPECIMENOrdering Facility: [facility] Address: [address] [place] [address] Performed By: #### 5 8410-2 ####[facility] LABIA [id number] [place] [address] [place] RBC (Bld) [#/Vol] 3.97 10*6/uL Normal 3.90-5.20 [facility] Comment on above: Order Comment: Speci men Type: BLOOD SPECIMENOrdering Facility: [facility] Address: [address] [place] [address] Performed By: #### 5 8410-2 ####[facility] LABIA [id number] [place] [address] [place] WBC (Bld) [#/Vol] 5.91 10*3/uL Normal 3.70-11.00 [facility] Comment on above: Order Comment: Speci men Type: BLOOD SPECIMENOrdering Facility: [facility] Address: [address] [place] [address] Performed By: #### 5 8410-2 ####[facility] LABIA [id number] [place] [address] [place] Comprehensive metabolic 2000 panelon 09-17-2023 Albumin [Mass/Vol] 3.8 g/dL Low 3.9-4.9 [facility] Comment on above: Order Comment: Speci men Type: BLOOD SPECIMENOrdering Facility: [facility] Address: [address] [place] [address] Performed By: #### 1 9123-9, 2777-1, 25933-3 ####[facility] LABIA [id number] [place] [address] [place] ALP [Catalytic activity/Vol] 141 U/L High 34-123 [facility] Comment on above: Order Comment: Speci men Type: BLOOD SPECIMENOrdering Facility: [facility] Address: [address] [place] [address] Performed By: #### 1 9123-9, 2776-05, 92156-6 ####[facility] LABCLIA [id number] [place] [address] [place] ALT [Catalytic activity/Vol] 36 U/L Normal 7-38 [facility] Comment on above: Order Comment: Speci men Type: BLOOD SPECIMENOrdering Facility: [facility] Address: [address] [place] [address] Performed By: #### 1 9123-9, 27711-26, 76897-2 ####[facility] LABCLIA [id number] [place] [address] [place] Anion gap [Moles/Vol] 12 mmol/L Normal 9-18 [facility] Comment on above: Order Comment: Speci men Type: BLOOD SPECIMENOrdering Facility: [facility] Address: [address] [place] [address] Performed By: #### 1 9123-9, 2776-05, 85025-7 ####[facility] LABCLIA [id number] [place] [address] [place] AST [Catalytic activity/Vol] 19 U/L Normal 13-35 [facility] Comment on above: Order Comment: Speci men Type: BLOOD SPECIMENOrdering Facility: [facility] Address: [address] [place] [address] Performed By: #### 1 9123-9, 2776-05, 57348-9 ####[facility] LABCLIA [id number] [place] [address] [place] Bilirubin [Mass/Vol] 0.4 mg/dL Normal 0.2-1.3 [facility] Comment on above: Order Comment: Speci men Type: BLOOD SPECIMENOrdering Facility: [facility] Address: [address] [place] [address] Performed By: #### 1 9123-9, 27711-26, 38360-4 ####[facility] LABCLIA [id number] [address] [address] [place] Calcium [Mass/Vol] 9.6 mg/dL Normal 8.5-10.2 [facility] Comment on above: Order Comment: Speci men Type: BLOOD SPECIMENOrdering Facility: [facility] Address: [address] [place] [address] Performed By: #### 1 9123-9, 27711-26, ####[facility] LABCLIA [id number] [address] [address] [place] Chloride [Moles/Vol] 101 mmol/L Normal 97-105 [facility] Comment on above: Order Comment: Speci men Type: BLOOD SPECIMENOrdering Facility: [facility] Address: [address] [place] [address] Performed By: #### 1 9123-9, 2776-05, ####[facility] LABCLIA [id number] [place] [address] [place] CO2 [Moles/Vol] 26 mmol/L Normal 22-30 [facility] Comment on above: Order Comment: Speci men Type: BLOOD SPECIMENOrdering Facility: [facility] Address: [address] [place], [place] [address] Performed By: #### 1 9123-9, 2776-05, ####[facility] LABCLIA [id number] [address] [address] [place] Creatinine [Mass/Vol] 0.80 mg/dL Normal 0.58-0.96 [facility] Comment on above: Order Comment: Speci men Type: BLOOD SPECIMENOrdering Facility: [facility] Address: [address] [place], [place] [address] Performed By: #### 1 9123-9, 27711-26, ####[facility] LABCLIA [id number] [address] [place] Creatinine and Glomerular filtration rate.predicted panel (S/P/Bld) 84 mL/min/1.73m??? Normal >=60 [facility] Comment on above: Order Comment: Nicolle phipps Type: BLOOD SPECIMENOrdering Facility: [facility] Address: [address] [place] [address] Result Comment: Tuyet mated Glomerular Filtration Rate (eGFR) is calculated using the 2020 CKD-EPI creatinine equation. This equation utilizes serum creatinine, sex, and age as parameters. The creatinine assay has traceable calibration to isotope dilution-mass spectrometry. Refer to KDIGO guidelines for clinical interpretation. In patients with unstable renal function, e.g. those with acute kidney injury, the eGFR may not accurately reflect actual GFR. Performed By: #### 1 9123-9, 2777-1, 08645-8 ####[facility] LABCLIA [id number] [place] [address] [place] Glucose [Mass/Vol] 83 mg/dL Normal 74-99 [facility] Comment on above: Order Comment: Nicolle phipps Type: BLOOD SPECIMENOrdering Facility: [facility] Address: [address] [place] [address] Result Comment: The [place] Diabetes Association (ADA) provides guidance for cutoff values for fasting glucose and random glucose. The ADA defines fasting as no caloric intake for at least 8 hours. Fasting plasma glucose results between 100 to 125 mg/dL indicate increased risk for diabetes (prediabetes).Fasting plasma glucose results greater than or equal to 126 mg/dL meet the criteria for diagnosis of diabetes. In the absence of unequivocal hyperglycemia, results should be confirmed by repeat testing. In a patient with classic symptoms of hyperglycemia or hyperglycemic crisis, random plasma glucose results greater than or equal to 200 mg/dL meet the criteria for diagnosis of diabetes.Reference: Standards of Medical Care in Diabetes 2016, [place] Diabetes Association. Diabetes Care. 2016.39(Suppl 1). Performed By: #### 1 9123-9, 2777-1, 71615-6 ####[facility] LABIA [id number] [place] [address] [place] Potassium [Moles/Vol] 4.1 mmol/L Normal 3.7-5.1 [facility] Comment on above: Order Comment: Speci men Type: BLOOD SPECIMENOrdering Facility: [facility] Address: [address] [place] [address] Performed By: #### 1 9123-9, 277-1, 60400-2 ####[facility] LABCLIA [id number] [place] [address] [place] Protein [Mass/Vol] 7.1 g/dL Normal 6.3-8.0 [facility] Comment on above: Order Comment: Speci men Type: BLOOD SPECIMENOrdering Facility: [facility] Address: [address] [place] [address] Performed By: #### 1 9123-9, 2771, 15265-3 ####[facility] LABCLIA [id number] [place] [address] [place] Sodium [Moles/Vol] 139 mmol/L Normal 136-144 [facility] Comment on above: Order Comment: Speci men Type: BLOOD SPECIMENOrdering Facility: [facility] Address: [address] [place] [address] Performed By: #### 1 9123-9, 27711-26, 83459-7 ####[facility] LABCLIA [id number] [place] [address] [place] Urea nitrogen [Mass/Vol] 12 mg/dL Normal 7-21 [facility] Comment on above: Order Comment: Speci men Type: BLOOD SPECIMENOrdering Facility: [facility] Address: [address] [place] [address] Performed By: #### 1 9123-9, 2771, 52884-8 ####[facility] LABCLIA [id number] [place] [address] [place] Magnesium SerPl-mCncon 09-16 Magnesium [Mass/Vol] 1.9 mg/dL Normal 1.7-2.3 [facility] Comment on above: Order Comment: Nicolle phipps Type: BLOOD SPECIMENOrdering Facility: [facility] Address: [address] [place] [address] Performed By: #### 1 9123-9, 2777-1, 82724-3 ####[facility] LABCLIA [id number] [place] [address] [place] PT panel Coag (PPP)on 2023 INR Coag (PPP) [Relative time] 1.0 {INR} Normal 0.9-1.3 [facility] Comment on above: Order Comment: Nicolle phipps Type: BLOOD SPECIMENOrdering Facility: [facility] Address: [address] [place] [address] Result Comment: Suze min K Antagonist (VKA) Therapeutic Range: INR 2 to 3 (Target INR of 2.5)Note: For patients treated with VKA drugs, such as warfarin, the [place] [employer] 2012 Guideline recommends a therapeutic INR range of 2 to 3 (target INR of 2.5). This recommendation includes high-risk patients with antiphospholipid syndrome with previous arterial or venous thromboembolism, current-generation mechanical or bioprosthetic aortic heart valve replacement.Note: Patients with mechanical aortic valve replacement and additional risk factors for thromboembolic events (atrial fibrillation, previous thromboembolism, LV dysfunction, hypercoagulable conditions) or an older generation mechanical AVR (i.e., ball in-Cage) or any mechanical MVR should have a INR therapeutic range of 2.5 to 3.5 (target INR of 3).Rober GH, et al. Chest 2012, 141:7S-47SNishakbar RA, et al. JACC 2017, 70: 252-289 Performed By: #### 3 4528-0 ####[facility] LABCLIA [id number] [place] [address] [place] PT Coag (PPP) [Time] 10.9 s Normal 9.7-13.0 [facility] Comment on above: Order Comment: Speci men Type: BLOOD SPECIMENOrdering Facility: [facility] Address: [address] [place] [address] Performed By: #### 3 4528-0 ####[facility] LABCLIA [id number] [place] [address] [place] Phosphate SerPl-mCncon 09-16 Phosphate [Mass/Vol] 4.4 mg/dL Normal 2.7-4.8 [facility] Comment on above: Order Comment: Speci men Type: BLOOD SPECIMENOrdering Facility: [facility] Address: [address] [place] [address] Performed By: #### 1 9123-9, 2777-1, 13728-7 ####[facility] LABCLIA [id number] [place] [address] [place] .Auto Diff 1on 09-16-2023 Auto [place] % 11 % Normal 1-12 [facility] Comment on above: Performed By: #### 1 [id number], [id number] ####[facility] (DEFAULT)[address] [place] [address] 03604 Baso Abs# 0.0 x10 Normal 0.0-0.2 [facility] Comment on above: Performed By: #### 1 [id number], [id number] ####[facility] (DEFAULT)[address] [place] [address] 59923 Basophils/100 WBC (Bld) 0.6 % Normal 0.2-2.0 [facility] Comment on above: Performed By: #### 1 [id number], [id number] ####[facility] (DEFAULT)[address] [place] [address] 80267 Eos Abs# 0.4 x10 Normal 0.0-0.4 [facility] Comment on above: Performed By: #### 1 [id number], 3783948 ####[facility] (DEFAULT)[address] [place] [address] 48264 Eosinophils/100 WBC (Bld) 6.7 % High 0.9-4.0 [facility] Comment on above: Performed By: #### 1 [id number], [id number] ####[facility] (DEFAULT)[address] [place] [address] 99202 Lymph Abs# 0.5 x10 Low 1.3-2.9 [facility] Comment on above: Performed By: #### 1 [id number], [id number] ####[facility] (DEFAULT)[address] [place] [address] 74476 Lymphocytes/100 WBC (Bld) 8 % Low 14-48 [facility] Comment on above: Performed By: #### 1 [id number], [id number] ####[facility] (DEFAULT)[address] [place] [address] 43583 Mifflin Abs# 0.7 x10 Normal 0.0-0.8 [facility] Comment on above: Performed By: #### 1 [id number], 8806965 ####[facility] (DEFAULT)[address] [place] [address] 99324 Neut Abs# 4.4 x10 Normal 1.5-9.2 [facility] Comment on above: Performed By: #### 1 [id number], [id number] ####[facility] (DEFAULT)[address] [place] [address] 51431 Neutrophils/100 WBC (Bld) 73 % Normal 44-88 [facility] Comment on above: Performed By: #### 1 [id number], [id number] ####[facility] (DEFAULT)[address] [place] [address] 33394[facility] Standardon 09-16-2023 eGFR Non AA >60 Invalid Interpretation Code [facility] Comment on above: Performed By: #### 1 [id number] ####[facility] (DEFAULT)[address] [place] [address] 14581 eGFR AA >60 Invalid Interpretation Code [facility] Comment on above: Performed By: #### 1 [id number] ####[facility] (DEFAULT)[address] [place] [address] 68031 Anion gap [Moles/Vol] 8.7 mmol/L Normal 5.0-19.0 [facility] Comment on above: Performed By: #### 1 [id number] ####[facility] (DEFAULT)[address] [place] [address] 23652 Calcium [Mass/Vol] 8.4 mg/dL Low 8.9-10.3 [facility] Comment on above: Performed By: #### 1 [id number] ####[facility] (DEFAULT)[address] [place] [address] 70689 Chloride [Moles/Vol] 103 mmol/L Normal 101-111 [facility] Comment on above: Performed By: #### 1 [id number] ####[facility] (DEFAULT)[address] [place] [address] 73754 CO2 [Moles/Vol] 28 mmol/L Normal 21-32 [facility] Comment on above: Performed By: #### 1 [id number] ####[facility] (DEFAULT)[address] [place] [address] 96445 Creatinine [Mass/Vol] 0.65 mg/dL Normal 0.60-1.30 [facility] Comment on above: Performed By: #### 1 [id number] ####[facility] (DEFAULT)[address] [place] [address] 07865 Glucose [Mass/Vol] 104.0 mg/dL Normal 74.0-118.0 [facility] Comment on above: Performed By: #### 1 [id number] ####[facility] (DEFAULT)[address] [place] [address] 36276 Osmolality 274 mOsm/L Invalid Interpretation Code [facility] Comment on above: Performed By: #### 1 [id number] ####[facility] (DEFAULT)[address] [place] [address] 84430 Potassium [Moles/Vol] 3.7 mmol/L Normal 3.6-5.1 [facility] Comment on above: Performed By: #### 1 [id number] ####[facility] (DEFAULT)[address] [place] [address] 60623 Sodium [Moles/Vol] 136.0 mmol/L Normal 136.0-144.0 [facility] Comment on above: Performed By: #### 1 [id number] ####[facility] (DEFAULT)[address] [place] [address] Urea nitrogen [Mass/Vol] 17 mg/dL Normal 01-21 [facility] Comment on above: Performed By: #### 1 [id number] ####[facility] (DEFAULT)[address] [place] [address] 91938 Urea nitrogen/Creatinine [Mass ratio] 26.1 mg/mg High 4.6-16.2 [facility] Comment on above: Performed By: #### 1 [id number] ####[facility] (DEFAULT)[address] [place] [address] 14478 Bacteria Spec Resp Culton Bacteria identified Respiratory culture Nom (Unsp spec) ORGANISM ID: 1 Few Enterobacter cloacae complex Insignificant colony count. No further workup. ORGANISM ID: 2 Moderate normal respiratory alban GRAM STAIN: Rare Mixed oral alban No Polymorphonuclear Leukocytes Abnormal [facility] Comment on above: Performed By: #### 3 2355-0 ####[facility] LABCLIA [id number] [place] [address] [place] CBC W Auto Differential pane l (Bld)on 09-16-2023 Basophils (Bld) [#/Vol] 10*3/uL Normal <0.11 [facility] Comment on above: Order Comment: Speci men Type: BLOOD SPECIMENOrdering Facility: [facility] Address: [address] [place] [address] Performed By: #### 5 7021-8 ####[facility] LABCLIA [id number] [place] [address] [place] Basophils/100 WBC (Bld) 0.4 % Normal [facility] Comment on above: Order Comment: Speci men Type: BLOOD SPECIMENOrdering Facility: [facility] Address: [address] [place] [address] Performed By: #### 5 7021-8 ####[facility] LABCLIA [id number] [place] [address] [place] Differential cell count method Nom (Bld) Auto Normal [facility] Comment on above: Order Comment: Speci men Type: BLOOD SPECIMENOrdering Facility: [facility] Address: [address] [place] [address] Performed By: #### 5 7021-8 ####[facility] LABCLIA [id number] [place] [address] [place] Eosinophils (Bld) [#/Vol] 0.25 10*3/uL Normal <0.46 [facility] Comment on above: Order Comment: Speci men Type: BLOOD SPECIMENOrdering Facility: [facility] Address: [address] [place] [address] Performed By: #### 5 7021-8 ####[facility] LABCLIA [id number] [place] [address] [place] Eosinophils/100 WBC (Bld) 4.6 % Normal [facility] Comment on above: Order Comment: Speci men Type: BLOOD SPECIMENOrdering Facility: [facility] Address: [address] [place] [address] Performed By: #### 5 7021-8 ####[facility] LABCLIA [id number] [place] [address] [place] Erythrocyte distribution width (RBC) [Ratio] 14.4 % Normal 11.5-15.0 [facility] Comment on above: Order Comment: Speci men Type: BLOOD SPECIMENOrdering Facility: [facility] Address: [address] [place] [address] Performed By: #### 5 7021-8 ####[facility] LABCLIA [id number] [place] [address] [place] Hematocrit (Bld) [Volume fraction] 32.9 % Low 36.0-46.0 [facility] Comment on above: Order Comment: Speci men Type: BLOOD SPECIMENOrdering Facility: [facility] Address: [address] [place] [address] Performed By: #### 5 7021-8 ####[facility] LABCLIA [id number] [place] [address] [place] Hemoglobin (Bld) [Mass/Vol] 11.2 g/dL Low 11.5-15.5 [facility] Comment on above: Order Comment: Speci men Type: BLOOD SPECIMENOrdering Facility: [facility] Address: [address] [place] [address] Performed By: #### 5 7021-8 ####[facility] LABCLIA [id number] [place] [address] [place] Immature granulocytes (Bld) [#/Vol] 0.04 10*3/uL Normal <0.10 [facility] Comment on above: Order Comment: Speci men Type: BLOOD SPECIMENOrdering Facility: [facility] Address: [address] [place] [address] Performed By: #### 5 7021-8 ####[facility] LABIA [id number] [place] [address] [place] Immature granulocytes/100 WBC (Bld) 0.7 % Normal [facility] Comment on above: Order Comment: Speci men Type: BLOOD SPECIMENOrdering Facility: [facility] Address: [address] [place] [address] Performed By: #### 5 7021-8 ####[facility] LABIA [id number] [place] [address] [place] Lymphocytes (Bld) [#/Vol] 0.53 10*3/uL Low 1.00-4.00 [facility] Comment on above: Order Comment: Speci men Type: BLOOD SPECIMENOrdering Facility: [facility] Address: [address] [place] [address] Performed By: #### 5 7021-8 ####[facility] LABCLIA [id number] [place] [address] [place] Lymphocytes/100 WBC (Bld) 9.7 % Normal [facility] Comment on above: Order Comment: Speci men Type: BLOOD SPECIMENOrdering Facility: [facility] Address: [address] [place] [address] Performed By: #### 5 7021-8 ####[facility] LABIA [id number] [place] [address] [place] MCH (RBC) [Entitic mass] 27.9 pg Normal 26.0-34.0 [facility] Comment on above: Order Comment: Speci men Type: BLOOD SPECIMENOrdering Facility: [facility] Address: [address] [place] [address] Performed By: #### 5 7021-8 ####[facility] LABIA [id number] [place] [address] [place] MCHC (RBC) [Mass/Vol] 34.0 g/dL Normal 30.5-36.0 [facility] Comment on above: Order Comment: Speci men Type: BLOOD SPECIMENOrdering Facility: [facility] Address: [address] [place] [address] Performed By: #### 5 7021-8 ####[facility] LABIA [id number] [place] [address] [place] MCV (RBC) [Entitic vol] 81.8 fL Normal 80.0-100.0 [facility] Comment on above: Order Comment: Speci men Type: BLOOD SPECIMENOrdering Facility: [facility] Address: [address] [place] [address] Performed By: #### 5 7021-8 ####[facility] LABIA [id number] [place] [address] [place] Monocytes (Bld) [#/Vol] 0.43 10*3/uL Normal <0.87 [facility] Comment on above: Order Comment: Speci men Type: BLOOD SPECIMENOrdering Facility: [facility] Address: [address] [place] [address] Performed By: #### 5 7021-8 ####[facility] LABCLIA [id number] [place] [address] [place] Monocytes/100 WBC (Bld) 7.9 % Normal [facility] Comment on above: Order Comment: Speci men Type: BLOOD SPECIMENOrdering Facility: [facility] Address: [address] [place] [address] Performed By: #### 5 7021-8 ####[facility] LABCLIA [id number] [place] [address] [place] Neutrophils (Bld) [#/Vol] 4.19 10*3/uL Normal 1.45-7.50 [facility] Comment on above: Order Comment: Speci men Type: BLOOD SPECIMENOrdering Facility: [facility] Address: [address] [place] [address] Performed By: #### 5 7021-8 ####[facility] LABCLIA [id number] [place] [address] [place] Neutrophils/100 WBC (Bld) 76.7 % Normal [facility] Comment on above: Order Comment: Speci men Type: BLOOD SPECIMENOrdering Facility: [facility] Address: [address] [place] [address] Performed By: #### 5 7021-8 ####[facility] LABCLIA [id number] [place] [address] [place] Nucleated RBC (Bld) [#/Vol] 10*3/uL Normal <0.01 [facility] Comment on above: Order Comment: Speci men Type: BLOOD SPECIMENOrdering Facility: [facility] Address: [address] [place] [address] Performed By: #### 5 7021-8 ####[facility] LABCLIA [id number] [place] [address] [place] Nucleated RBC/100 WBC (Bld) [Ratio] 0.0 /100 WBC Normal [facility] Comment on above: Order Comment: Speci men Type: BLOOD SPECIMENOrdering Facility: [facility] Address: [address] [place] [address] Performed By: #### 5 7021-8 ####[facility] LABCLIA [id number] [place] [address] [place] Platelet mean volume (Bld) [Entitic vol] 9.7 fL Normal 9.0-12.7 [facility] Comment on above: Order Comment: Speci men Type: BLOOD SPECIMENOrdering Facility: [facility] Address: [address] [place] [address] Performed By: #### 5 7021-8 ####[facility] LABCLIA [id number] [place] [address] [place] Platelets (Bld) [#/Vol] 238 10*3/uL Normal 150-400 [facility] Comment on above: Order Comment: Speci men Type: BLOOD SPECIMENOrdering Facility: [facility] Address: [address] [place] [address] Performed By: #### 5 7021-8 ####[facility] LABIA [id number] [place] [address] [place] RBC (Bld) [#/Vol] 4.02 10*6/uL Normal 3.90-5.20 [facility] Comment on above: Order Comment: Speci men Type: BLOOD SPECIMENOrdering Facility: [facility] Address: [address] [place] [address] Performed By: #### 5 7021-8 ####[facility] LABCLIA [id number] [place] [address] [place] WBC (Bld) [#/Vol] 5.46 10*3/uL Normal 3.70-11.00 [facility] Comment on above: Order Comment: Speci men Type: BLOOD SPECIMENOrdering Facility: [facility] Address: [address] [place] [address] Performed By: #### 5 7021-8 ####[facility] LABCLIA [id number] [id number] [address] [place] CBC w/ Auto Diffon Erythrocyte distribution width (RBC) [Ratio] 15.6 % High 11.5-15.0 [facility] Comment on above: Performed By: #### 1 [id number], [id number] ####[facility] (DEFAULT)[address] [place] [address] 82825 Hematocrit (Bld) [Volume fraction] 28.7 % Low 33.7-40.4 [facility] Comment on above: Performed By: #### 1 [id number], [id number] ####[facility] (DEFAULT)[address] [place] [address] 13359 Hemoglobin (Bld) [Mass/Vol] 9.8 g/dL Low 11.3-15.9 [facility] Comment on above: Performed By: #### 1 [id number], [id number] ####[facility] (DEFAULT)[address] [place] [address] 08207 Man Diff? Auto Invalid Interpretation Code [facility] Comment on above: Performed By: #### 1 [id number], [id number] ####[facility] (DEFAULT)[address] [place] [address] 95668 MCH (RBC) [Entitic mass] 27 pg Normal 24-34 [facility] Comment on above: Performed By: #### 1 [id number], 2126435 ####[facility] (DEFAULT)[address] [place] [address] 56348 MCHC (RBC) [Mass/Vol] 34 g/dL Normal 26-37 [facility] Comment on above: Performed By: #### 1 [id number], [id number] ####[facility] (DEFAULT)[address] [place] [address] 03800 MCV (RBC) [Entitic vol] 80 fL Low 81-100 [facility] Comment on above: Performed By: #### 1 [id number], [id number] ####[facility] (DEFAULT)[address] [place] [address] 29180 Platelet 218 x10 Normal 138-427 [facility] Comment on above: Performed By: #### 1 [id number], 5905755 ####[facility] (DEFAULT)[address] [place] [address] 91764 Platelet mean volume (Bld) [Entitic vol] 7.9 fL Normal 6.3-10.2 [facility] Comment on above: Performed By: #### 1 5179629, [id number] ####[facility] (DEFAULT)[address] [place] [address] 49371 RBC 3.61 x10 Low 3.70-5.30 [facility] Comment on above: Performed By: #### 1 [id number], [id number] ####[facility] (DEFAULT)[address] [place] [address] 89755 WBC 6.0 x10 Normal 3.5-10.5 [facility] Comment on above: Performed By: #### 1 1143961, [id number] ####[facility] (DEFAULT)[address] [place] [address] 22798 CRP SerPl-mCncon 09-16-2023 CRP [Mass/Vol] 4.4 mg/dL High <0.9 [facility] Comment on above: Order Comment: Speci men Type: BLOOD SPECIMENOrdering Facility: [facility] Address: [address] [place] [address] Performed By: #### 3 040-3, 38969-6, 20839-6, 3016-3, 1988-5, 47729-8 ####[facility] LABCLIA [id number] [address] [address] [place] ABD/PEL W IVCONon 024 CT ABD/PEL W IVCON Normal [facility] CT CHEST W IVCON PEon 2023 CT CHEST W IVCON PE Normal [facility] Comprehensive metabolic 2000 panelon 09-16-2023 Albumin [Mass/Vol] 3.7 g/dL Low 3.9-4.9 [facility] Comment on above: Order Comment: Speci men Type: BLOOD SPECIMENOrdering Facility: [facility] Address: [address] [place] [address] Performed By: #### 3 040-3, 47828-4, 89885-1, 3015-3, 1987-09, ####[facility] LABCLIA [id number] [place] [address] [place] ALP [Catalytic activity/Vol] 142 U/L High 34-123 [facility] Comment on above: Order Comment: Speci men Type: BLOOD SPECIMENOrdering Facility: [facility] Address: [address] [place] [address] Performed By: #### 3 040-3, 78208-5, 24486-8, 3015-07, 1987-09, ####[facility] LABCLIA [id number] [place] [address] [place] ALT [Catalytic activity/Vol] 42 U/L High 7-38 [facility] Comment on above: Order Comment: Speci men Type: BLOOD SPECIMENOrdering Facility: [facility] Address: [address] [place] [address] Performed By: #### 3 040-3, 95143-3, 37806-1, 3015-07, 1987-09, ####[facility] LABCLIA [id number] [place] [address] [place] Anion gap [Moles/Vol] 11 mmol/L Normal 9-18 [facility] Comment on above: Order Comment: Speci men Type: BLOOD SPECIMENOrdering Facility: [facility] Address: [address] [place] [address] Performed By: #### 3 040-3, 55235-4, 49150-1, 3015-07, 1987-09, ####[facility] LABCLIA [id number] [place] [address] [place] AST [Catalytic activity/Vol] 22 U/L Normal 13-35 [facility] Comment on above: Order Comment: Speci men Type: BLOOD SPECIMENOrdering Facility: [facility] Address: [address] [place] [address] Performed By: #### 3 040-3, 46681-0, 07047-3, 3015-07, 1987-09, ####[facility] LABCLIA [id number] [place] [address] [place] Bilirubin [Mass/Vol] 0.3 mg/dL Normal 0.2-1.3 [facility] Comment on above: Order Comment: Speci men Type: BLOOD SPECIMENOrdering Facility: [facility] Address: [address] [place] [address] Performed By: #### 3 040-3, 37666-2, 47556-4, 3015-07, 1987-09, ####[facility] LABCLIA [id number] [place] [address] [place] Calcium [Mass/Vol] 9.2 mg/dL Normal 8.5-10.2 [facility] Comment on above: Order Comment: Speci men Type: BLOOD SPECIMENOrdering Facility: [facility] Address: [address] [place] [address] Performed By: #### 3 040-3, 53546-9, 14406-9, 3015-07, 1987-09, ####[facility] LABCLIA [id number] [place] [id number] [place] Chloride [Moles/Vol] 101 mmol/L Normal 97-105 [facility] Comment on above: Order Comment: Speci men Type: BLOOD SPECIMENOrdering Facility: [facility] Address: [address] [place] [address] Performed By: #### 3 040-3, 88651-8, 58634-4, 3015-07, 1987-09, ####[facility] LABIA [id number] [address] [address] [place] CO2 [Moles/Vol] 28 mmol/L Normal 22-30 [facility] Comment on above: Order Comment: Speci men Type: BLOOD SPECIMENOrdering Facility: [facility] Address: [address] [place] [address] Performed By: #### 3 040-3, 73611-4, 53005-3, 3015-07, 1987-09, ####[facility] LABIA [id number] [place] [address] [place] Creatinine [Mass/Vol] 0.67 mg/dL Normal 0.58-0.96 [facility] Comment on above: Order Comment: Speci men Type: BLOOD SPECIMENOrdering Facility: [facility] Address: [address] [place] [address] Performed By: #### 3 040-3, 77826-2, , 3015-07, 1987-09, ####[facility] [id number] [place] [address] [place] Creatinine and Glomerular filtration rate.predicted panel (S/P/Bld) 100 mL/min/1.73m??? Normal >=60 [facility] Comment on above: Order Comment: Speci men Type: BLOOD SPECIMENOrdering Facility: [facility] Address: [address] [place], [place] [address] Result Comment: Tuyet mated Glomerular Filtration Rate (eGFR) is calculated using the 2020 CKD-EPI creatinine equation. This equation utilizes serum creatinine, sex, and age as parameters. The creatinine assay has traceable calibration to isotope dilution-mass spectrometry. Refer to KDIGO guidelines for clinical interpretation. In patients with unstable renal function, e.g. those with acute kidney injury, the eGFR may not accurately reflect actual GFR. Performed By: #### 3 040-3, 57804-4, 65256-6, 3015-07, 1987-09, ####[facility] LABCLIA [id number] [address] [address] [place] Glucose [Mass/Vol] 85 mg/dL Normal 74-99 [facility] Comment on above: Order Comment: Speci men Type: BLOOD SPECIMENOrdering Facility: [facility] Address: [address] [place] [address] Result Comment: The [place] Diabetes Association (ADA) provides guidance for cutoff values for fasting glucose and random glucose. The ADA defines fasting as no caloric intake for at least 8 hours. Fasting plasma glucose results between 100 to 125 mg/dL indicate increased risk for diabetes (prediabetes).Fasting plasma glucose results greater than or equal to 126 mg/dL meet the criteria for diagnosis of diabetes. In the absence of unequivocal hyperglycemia, results should be confirmed by repeat testing. In a patient with classic symptoms of hyperglycemia or hyperglycemic crisis, random plasma glucose results greater than or equal to 200 mg/dL meet the criteria for diagnosis of diabetes.Reference: Standards of Medical Care in Diabetes 2016, [place] Diabetes Association. Diabetes Care. 2016.39(Suppl 1). Performed By: #### 3 040-3, 28663-7, 65051-4, 3015-07, 1987-09, ####[facility] LABCLIA [id number] [address] [address] [place] Potassium [Moles/Vol] 3.5 mmol/L Low 3.7-5.1 [facility] Comment on above: Order Comment: Speci men Type: BLOOD SPECIMENOrdering Facility: [facility] Address: [address] [place] [address] Performed By: #### 3 040-3, 68179-9, 45995-0, 3015-07, 1987-09, ####[facility] LABCLIA [id number] [address] [address] [place] Protein [Mass/Vol] 6.9 g/dL Normal 6.3-8.0 [facility] Comment on above: Order Comment: Speci men Type: BLOOD SPECIMENOrdering Facility: [facility] Address: [address] [place] [address] Performed By: #### 3 040-3, 39022-3, 13212-5, 3015-07, 1987-09, ####[facility] LABIA [id number] [address] [address] [place] Sodium [Moles/Vol] 140 mmol/L Normal 136-144 [facility] Comment on above: Order Comment: Speci men Type: BLOOD SPECIMENOrdering Facility: [facility] Address: [address] [place] [address] Performed By: #### 3 040-3, 01430-1, 89520-9, 3015-07, 1987-09, ####[facility] LABIA [id number] [address] [address] [place] Urea nitrogen [Mass/Vol] 12 mg/dL Normal 7-21 [facility] Comment on above: Order Comment: Speci men Type: BLOOD SPECIMENOrdering Facility: [facility] Address: [address] [place] [address] Performed By: #### 3 040-3, 15728-6, 06224-8, 3015-07, 1987-09, ####[facility] LABIA [id number] [address] [address] [place] Discharge Noteon 09-16-2023 Discharge Note Normal [facility] ECG COMPLETEon 09-16-2023 ECG COMPLETE Normal [facility] ED NOTEon 09-16-2023 ED NOTE HNO ID: [id number] Author: JEFRY ARELLANO RN Service: Emergency Medicine Author Type: Registered Nurse Type: ED Notes Filed: 09/16/2023 20:18 Note Text: Pts feeding tube flushed with 30 ml luke warm water, pt tolerated without complaint Normal [facility] ED NOTE Normal [facility] ED PROV NOTEon 09-16-2023 ED PROV NOTE Normal [facility] Education Noteon 09-16-2023 Education Note Normal [facility] HISTORY PHYSICALon HISTORY PHYSICAL Normal [facility] Inpatient Clinical Summaryon 09-16-2023 Inpatient Clinical Summary Normal [facility] Inpatient Patient Summaryon 09-16-2023 Inpatient Patient Summary Normal [facility] Legionella Ag Ur Qlon 2023 Legionella sp Ag Ql (U) Negative Normal Negative [facility] Comment on above: Order Comment: Speci men Type: URINE SPECIMENOrdering Facility: [facility] Address: [address] [place] [address] Result Comment: Legi onella urinary antigen test is used as an aid in diagnosis of infection with Legionella pneumophila serogroup 1. It may be detected from a few days to several months after onset of signs and symptoms despite antibiotic therapy or disease resolution. A negative result cannot exclude Legionellosis. Clinical correlation is required. Performed By: #### 3 2781-7 ####[facility] LABCLIA [id number] [place] [address] [place] Lipase SerPl-cCncon 09-16-19 Lipase [Catalytic activity/Vol] 25 U/L Normal 16-61 [facility] Comment on above: Order Comment: Speci men Type: BLOOD SPECIMENOrdering Facility: [facility] Address: [address] [place] [address] Performed By: #### 3 040-3, 85622-8, 29282-4, 3015-07, 1987-09, ####[facility] LABCLIA [id number] [place] [address] [place] Magnesium SerPl-mCncon 09-15 Magnesium [Mass/Vol] 1.9 mg/dL Normal 1.7-2.3 [facility] Comment on above: Order Comment: Speci men Type: BLOOD SPECIMENOrdering Facility: [facility] Address: [address] [place] [address] Performed By: #### 3 040-3, 66301-7, 08277-5, 3015-07, 1987-09, ####[facility] LABCLIA [id number] [place] [id number] [place] Pharmacy Noteon 09-16-2023 Pharmacy Note Normal [facility] Procalcitonin SerPl-mCncon 0 09-16-2023 Procalcitonin [Mass/Vol] 0.73 ng/mL High <0.09 [facility] Comment on above: Order Comment: Speci men Type: BLOOD SPECIMENOrdering Facility: [facility] Address: [address] [place] [address] Result Comment: For a guided interpretation of test results, please visit the Change in Procalcitonin Calculator, [email or web address]. Performed By: #### 3 040-3, 30201-5, 83462-9, 3016-3, 1987-5, 00862-9 ####[facility] LABCLIA [id number] [place] [id number] [place] Progress Note - Nurseon 08-28 Progress Note - Nurse Normal [facility] STREPTOCOCCUS PNEUMONIAE ANT IGEN URINEon 09-16-2023 STREPTOCOCCUS PNEUMONIAE ANTIGEN URINE Normal [facility] Comment on above: Performed By: #### S PNAG ####[facility] LABCLIA [id number] [place] [address] [place] TOXICOLOGY SCREEN, ROUTINE U RINEon 09-16-2023 Amphetamines Confirm (U) [Mass/Vol] Negative Normal Negative [facility] Comment on above: Order Comment: Speci men Type: URINE SPECIMENOrdering Facility: [facility] Address: [address] [place] [address] Result Comment: Cuto ff threshold at 1000 ng/mL. Performed By: #### U TOX2 ####[facility] LABCLIA [id number] [place] [address] [place] BARBITURATES, URINE Negative Normal Negative [facility] Comment on above: Order Comment: Speci men Type: URINE SPECIMENOrdering Facility: [facility] Address: [address] [place] [address] Result Comment: Cuto ff threshold at 200 ng/mL. Performed By: #### U TOX2 ####[facility] LABCLIA [id number] [place] [address] [place] BENZODIAZEPINES, UR Negative Normal Negative [facility] Comment on above: Order Comment: Speci men Type: URINE SPECIMENOrdering Facility: [facility] Address: [address] [place] [address] Result Comment: Cuto ff threshold at 200 ng/mL. Performed By: #### U TOX2 ####[facility] LABIA [id number] [place] [address] [place] Cannabinoids Screen Ql (U) Negative Normal Negative [facility] Comment on above: Order Comment: Speci men Type: URINE SPECIMENOrdering Facility: [facility] Address: [address] [place] [address] Result Comment: Cuto ff threshold at 50 ng/mL. Performed By: #### U TOX2 ####[facility] LABCLIA [id number] [place] [address] [place] Cocaine Ql (U) Negative Normal Negative [facility] Comment on above: Order Comment: Speci men Type: URINE SPECIMENOrdering Facility: [facility] Address: [address] [place] [address] Result Comment: Cuto ff threshold at 300 ng/mL. Performed By: #### U TOX2 ####[facility] LABCLIA [id number] [place] [address] [place] Ethanol (U) [Mass/Vol] <11 Normal <11 [facility] Comment on above: Order Comment: Speci men Type: URINE SPECIMENOrdering Facility: [facility] Address: [address] [place] [address] Performed By: #### U TOX2 ####[facility] LABCLIA [id number] [address] [place] Opiates Screen Ql (U) Negative Normal Negative [facility] Comment on above: Order Comment: Speci men Type: URINE SPECIMENOrdering Facility: [facility] Address: [address] [place] [address] Result Comment: Cuto ff threshold at 300 ng/mL. Performed By: #### U TOX2 ####[facility] LABCLIA [id number] [address] [place] oxyCODONE cutoff Screen (U) [Mass/Vol] Negative Normal Negative [facility] Comment on above: Order Comment: Speci men Type: URINE SPECIMENOrdering Facility: [facility] Address: [address] [place] [address] Result Comment: Cuto ff threshold at 100 ng/mL. Performed By: #### U TOX2 ####[facility] LABIA [id number] [address] [place] Phencyclidine Ql (U) Negative Normal Negative [facility] Comment on above: Order Comment: Speci men Type: URINE SPECIMENOrdering Facility: [facility] Address: [address] [place] [address] Result Comment: Cuto ff threshold at 25 ng/mL. Performed By: #### U TOX2 ####[facility] LABIA [id number] [place] [address] [place] TSH SerPl-aCncon 09-16-2023 TSH Qn 0.539 m[IU]/L Normal 0.270-4.200 [facility] Comment on above: Order Comment: Speci men Type: BLOOD SPECIMENOrdering Facility: [facility] Address: [address] [place] [address] Performed By: #### 3 040-3, 04560-1, 78873-8, 3016-3, 1988-5, 95329-6 ####[facility] LABCLIA [id number] [address] [place] Urinalysis complete panel (U )on 09-16-2023 Bacteria LM.HPF (Urine sed) [#/Area] Negative Normal Negative [facility] Comment on above: Order Comment: Speci men Type: URINE SPECIMENOrdering Facility: [facility] Address: [address] [place] [address] Performed By: #### 2 4356-8 ####[facility] LABCLIA [id number] [place] [address] [place] Bilirubin Ql (U) Negative Normal Negative [facility] Comment on above: Order Comment: Speci men Type: URINE SPECIMENOrdering Facility: [facility] Address: [address] [place] [address] Performed By: #### 2 4356-8 ####[facility] LABCLIA [id number] [place] [address] [place] Clarity (Unsp spec) Clear Normal Clear [facility] Comment on above: Order Comment: Speci men Type: URINE SPECIMENOrdering Facility: [facility] Address: [address] [place] [address] Performed By: #### 2 4356-8 ####[facility] LABCLIA [id number] [place] [address] [place] Color (U) Yellow Normal Yellow [facility] Comment on above: Order Comment: Speci men Type: URINE SPECIMENOrdering Facility: [facility] Address: [address] [place] [address] Performed By: #### 2 4356-8 ####[facility] LABCLIA [id number] [place] [address] [place] Epithelial cells LM.HPF (Urine sed) [#/Area] None Seen Normal [facility] Comment on above: Order Comment: Speci men Type: URINE SPECIMENOrdering Facility: [facility] Address: [address] [place] [address] Performed By: #### 2 4356-8 ####[facility] LABCLIA [id number] [place] [address] [place] Glucose Test strip (U) [Mass/Vol] Negative Normal Negative [facility] Comment on above: Order Comment: Speci men Type: URINE SPECIMENOrdering Facility: [facility] Address: [address] [place] [address] Performed By: #### 2 4356-8 ####[facility] LABCLIA [id number] [place] [address] [place] Hemoglobin Ql (U) Negative Normal Negative [facility] Comment on above: Order Comment: Speci men Type: URINE SPECIMENOrdering Facility: [facility] Address: [address] [place] [address] Performed By: #### 2 4356-8 ####[facility] LABCLIA [id number] [place] [address] [place] Hyaline casts (Urine sed) [#/Area] 0 /[LPF] Normal 0 /LPF [facility] Comment on above: Order Comment: Speci men Type: URINE SPECIMENOrdering Facility: [facility] Address: [address] [place] [address] Performed By: #### 2 4356-8 ####[facility] LABCLIA [id number] [place] [address] [place] Ketones Ql (U) Negative Normal Negative [facility] Comment on above: Order Comment: Speci men Type: URINE SPECIMENOrdering Facility: [facility] Address: [address] [place] [address] Performed By: #### 2 4356-8 ####[facility] LABCLIA [id number] [place] [address] [place] Leukocyte esterase Test strip Ql (U) Negative Normal Negative [facility] Comment on above: Order Comment: Speci men Type: URINE SPECIMENOrdering Facility: [facility] Address: [address] [place] [address] Performed By: #### 2 4356-8 ####[facility] LABCLIA [id number] [place] [address] [place] Nitrite Ql (U) Negative Normal Negative [facility] Comment on above: Order Comment: Speci men Type: URINE SPECIMENOrdering Facility: [facility] Address: [address] [place] [address] Performed By: #### 2 4356-8 ####[facility] LABCLIA [id number] [place] [address] [place] pH (U) 8.0 [pH] Normal <8.5 [facility] Comment on above: Order Comment: Speci men Type: URINE SPECIMENOrdering Facility: [facility] Address: [address] [place] [address] Performed By: #### 2 4356-8 ####[facility] LABCLIA [id number] [place] [address] [place] Protein (U) [Mass/Vol] Negative Normal Negative [facility] Comment on above: Order Comment: Speci men Type: URINE SPECIMENOrdering Facility: [facility] Address: [address] [place] [address] Performed By: #### 2 4356-8 ####[facility] LABCLIA [id number] [place] [address] [place] RBC LM.HPF (Urine sed) [#/Area] 0-2 /HPF Normal 0-2 /HPF [facility] Comment on above: Order Comment: Speci men Type: URINE SPECIMENOrdering Facility: [facility] Address: [address] [place] [address] Performed By: #### 2 4356-8 ####[facility] LABCLIA [id number] [place] [address] [place] Specific gravity (U) [Rel density] 1.014 Normal 1.005-1.030 [facility] Comment on above: Order Comment: Speci men Type: URINE SPECIMENOrdering Facility: [facility] Address: [address] [place] [address] Performed By: #### 2 4356-8 ####[facility] LABCLIA [id number] [place] [address] [place] Urobilinogen Ql (U) 0.2 EU/dL Normal 0.2-1.0 EU/dL [facility] Comment on above: Order Comment: Speci men Type: URINE SPECIMENOrdering Facility: [facility] Address: [address] [place] [address] Performed By: #### 2 4356-8 ####[facility] LABIA [id number] [place] [address] [place] WBC LM.HPF (Urine sed) [#/Area] 0-5 /HPF Normal 0-5 /HPF [facility] Comment on above: Order Comment: Speci men Type: URINE SPECIMENOrdering Facility: [facility] Address: [address] [place] [address] Performed By: #### 2 4356-8 ####[facility] LABIA [id number] [place] [address] [place] .Auto Diff 1on 09-15-2023 Auto Mifflin % 9 % Normal 1-12 [facility] Comment on above: Performed By: #### 7 [id number], [id number] ####[facility] (DEFAULT)[address] [place] [address] Baso Abs# 0.0 x10 Normal 0.0-0.2 [facility] Comment on above: Performed By: #### 7 [id number], [id number] ####[facility] (DEFAULT)[address] [place] [address] Basophils/100 WBC (Bld) 0.4 % Normal 0.2-2.0 [facility] Comment on above: Performed By: #### 7 [id number], [id number] ####[facility] (DEFAULT)[address] [place] [address] Eos Abs# 0.2 x10 Normal 0.0-0.4 [facility] Comment on above: Performed By: #### 7 872586, [id number] ####[facility] (DEFAULT)[address] [place] [address] Eosinophils/100 WBC (Bld) 4.3 % High 0.9-4.0 [facility] Comment on above: Performed By: #### 7 [id number], [id number] ####[facility] (DEFAULT)[address] [place] [address] Lymph Abs# 0.5 x10 Low 1.3-2.9 [facility] Comment on above: Performed By: #### 7 100190, [id number] ####[facility] (DEFAULT)[address] [place] [address] Lymphocytes/100 WBC (Bld) 8 % Low 14-48 [facility] Comment on above: Performed By: #### 7 [id number], [id number] ####[facility] (DEFAULT)[address] [place] [address] Mifflin Abs# 0.5 x10 Normal 0.0-0.8 [facility] Comment on above: Performed By: #### 7 879872, [id number] ####[facility] (DEFAULT)[address] [place] [address] Neut Abs# 4.5 x10 Normal 1.5-9.2 [facility] Comment on above: Performed By: #### 7 579039, [id number] ####[facility] (DEFAULT)[address] [place] [address] Neutrophils/100 WBC (Bld) 78 % Normal 44-88 [facility] Comment on above: Performed By: #### 7 [id number], [id number] ####[facility] (DEFAULT)[address] [place] [address] BMP Standardon 09-15-2023 Breakpoint Chem Normal [facility] Comment on above: Performed By: #### 1 [id number], [id number], [id number] ####[facility] (DEFAULT)[address] [place] [address]64 eGFR Non AA >60 Invalid Interpretation Code [facility] Comment on above: Performed By: #### 1 [id number], [id number], [id number] ####[facility] (DEFAULT)[address] [place] [address] 23567 eGFR AA >60 Invalid Interpretation Code [facility] Comment on above: Performed By: #### 1 [id number], [id number], [id number] ####[facility] (DEFAULT)[address] [place] [address] Anion gap [Moles/Vol] 9.3 mmol/L Normal 5.0-19.0 [facility] Comment on above: Performed By: #### 1 [id number], [id number], [id number] ####[facility] (DEFAULT)[address] [place] [address] Calcium [Mass/Vol] 8.3 mg/dL Low 8.9-10.3 [facility] Comment on above: Performed By: #### 1 [id number], [id number], [id number] ####[facility] (DEFAULT)[address] [place] [address] Chloride [Moles/Vol] 109 mmol/L Normal 101-111 [facility] Comment on above: Performed By: #### 1 [id number], [id number], [id number] ####[facility] (DEFAULT)[address] [place] [address] 79358 CO2 [Moles/Vol] 26 mmol/L Normal 21-32 [facility] Comment on above: Performed By: #### 1 [id number], [id number], [id number] ####[facility] (DEFAULT)[address] [place] [address] Creatinine [Mass/Vol] 0.60 mg/dL Normal 0.60-1.30 [facility] Comment on above: Performed By: #### 1 [id number], [id number], 7296094 ####[facility] (DEFAULT)[address] [place] [address]26 Glucose [Mass/Vol] 90.0 mg/dL Normal 74.0-118.0 [facility] Comment on above: Performed By: #### 1 [id number], [id number], 4606710 ####[facility] (DEFAULT)[address] [place] [address] 12929 Osmolality 284 mOsm/L Invalid Interpretation Code [facility] Comment on above: Performed By: #### 1 [id number], [id number], [id number] ####[facility] (DEFAULT)[address] [place] [address]97 Potassium [Moles/Vol] 3.3 mmol/L Low 3.6-5.1 [facility] Comment on above: Performed By: #### 1 [id number], [id number], 4563918 ####[facility] (DEFAULT)[address] [place] [address]31 Sodium [Moles/Vol] 141.0 mmol/L Normal 136.0-144.0 [facility] Comment on above: Performed By: #### 1 [id number], [id number], [id number] ####[facility] (DEFAULT)[address] [place] [address]122 Urea nitrogen [Mass/Vol] 23 mg/dL Normal 8-26 [facility] Comment on above: Performed By: #### 1 [id number], [id number], 6051365 ####[facility] (DEFAULT)[address] [place] [address] 38786 Urea nitrogen/Creatinine [Mass ratio] 38.3 mg/mg High 4.6-16.2 [facility] Comment on above: Performed By: #### 1 [id number], [id number], 2598694 ####[facility] (DEFAULT)[address] [place] [address] 59633 CBC w/ Auto Diffon 4 Erythrocyte distribution width (RBC) [Ratio] 15.2 % High 11.5-15.0 [facility] Comment on above: Performed By: #### 7 [id number], [id number] ####[facility] (DEFAULT)[address] [place] [address] Hematocrit (Bld) [Volume fraction] 29.0 % Low 33.7-40.4 [facility] Comment on above: Performed By: #### 7 776292, [id number] ####[facility] (DEFAULT)[address] [place] [address] Hemoglobin (Bld) [Mass/Vol] 10.1 g/dL Low 11.3-15.9 [facility] Comment on above: Performed By: #### 7 575089, [id number] ####[facility] (DEFAULT)[address] [place] [address] Man Diff? Auto Invalid Interpretation Code [facility] Comment on above: Performed By: #### 7 714668, [id number] ####[facility] (DEFAULT)[address] [place] [address] MCH (RBC) [Entitic mass] 28 pg Normal 24-34 [facility] Comment on above: Performed By: #### 7 336269, [id number] ####[facility] (DEFAULT)[address] [place] [address] MCHC (RBC) [Mass/Vol] 35 g/dL Normal 26-37 [facility] Comment on above: Performed By: #### 7 761566, [id number] ####[facility] (DEFAULT)[address] [place] [address] MCV (RBC) [Entitic vol] 80 fL Low 81-100 [facility] Comment on above: Performed By: #### 7 589966, [id number] ####[facility] (DEFAULT)[address] [place] [address] Platelet 216 x10 Normal 138-427 [facility] Comment on above: Performed By: #### 7 607202, [id number] ####[facility] (DEFAULT)[address] [place] [address] Platelet mean volume (Bld) [Entitic vol] 8.0 fL Normal 6.3-10.2 [facility] Comment on above: Performed By: #### 7 451646, [id number] ####[facility] (DEFAULT)[address] [place] [address] 81900 RBC 3.63 x10 Low 3.70-5.30 [facility] Comment on above: Performed By: #### 7 050052, [id number] ####[facility] (DEFAULT)[address] [place] [address] 20387 WBC 5.7 x10 Normal 3.5-10.5 [facility] Comment on above: Performed By: #### 7 004711, [id number] ####[facility] (DEFAULT)[address] [place] [address] 12637 Magnesiumon 09-15-2023 Magnesium [Mass/Vol] 1.88 mg/dL Normal 1.80-2.50 [facility] Comment on above: Performed By: #### 1 [id number], [id number], [id number] ####[facility] (DEFAULT)[address] [place] [address] 18153 Nutrition Noteon 09-15-2023 Nutrition Note Normal [facility] Progress Note - Nurseon 08-27 Progress Note - Nurse Normal [facility] Progress Note - Nurse Normal [facility] Progress Note - Nurse Normal [facility] Progress Note - Nurse Normal [facility] Renal Function Panel Standar don 09-15-2023 Calcium [Mass/Vol] 8.3 mg/dL Low 8.9-10.3 [facility] Comment on above: Performed By: #### 1 [id number], [id number], [id number] ####[facility] (DEFAULT)[address] [place] [address] 11378 Chloride [Moles/Vol] 109 mmol/L Normal 101-111 [facility] Comment on above: Performed By: #### 1 [id number], [id number], [id number] ####[facility] (DEFAULT)[address] [place] [address] 04726 CO2 [Moles/Vol] 26 mmol/L Normal 21-32 [facility] Comment on above: Performed By: #### 1 [id number], [id number], [id number] ####[facility] (DEFAULT)[address] [place] [address] 52281 Creatinine [Mass/Vol] 0.60 mg/dL Normal 0.60-1.30 [facility] Comment on above: Performed By: #### 1 [id number], [id number], [id number] ####[facility] (DEFAULT)[address] [place] [address] 13600 Glucose [Mass/Vol] 90.0 mg/dL Normal 74.0-118.0 [facility] Comment on above: Performed By: #### 1 [id number], [id number], 3748565 ####[facility] (DEFAULT)[address] [place] [address] 06043 Potassium [Moles/Vol] 3.3 mmol/L Low 3.6-5.1 [facility] Comment on above: Performed By: #### 1 [id number], 4506948931, 8353350 ####[facility] (DEFAULT)[address] [place] [address] 12963 Sodium [Moles/Vol] 141.0 mmol/L Normal 136.0-144.0 [facility] Comment on above: Performed By: #### 1 [id number], [id number], 2096995 ####[facility] (DEFAULT)[address] [place] [address] 44899 Urea nitrogen [Mass/Vol] 23 mg/dL Normal 8-26 [facility] Comment on above: Performed By: #### 1 [id number], [id number], 0196496 ####[facility] (DEFAULT)[address] [place] [address] 33202 Albumin [Mass/Vol] 3.0 g/dL Low 3.5-5.0 [facility] Comment on above: Performed By: #### 1 [id number], 7709774335, 8658636 ####[facility] (DEFAULT)[address] [place] [address] 68908 Anion gap [Moles/Vol] 9.3 mmol/L Normal 5.0-19.0 [facility] Comment on above: Performed By: #### 1 [id number], 3780855680, 2471887 ####[facility] (DEFAULT)[address] [place] [address] Osmolality 284 mOsm/L Invalid Interpretation Code [facility] Comment on above: Performed By: #### 1 [id number], [id number], 5421044 ####[facility] (DEFAULT)[address] [place] [address] Phosphate [Mass/Vol] 2.4 mg/dL Low 2.5-4.6 [facility] Comment on above: Performed By: #### 1 [id number], [id number], 3349880 ####[facility] (DEFAULT)[address] [place] [address] Urea nitrogen/Creatinine [Mass ratio] 38.3 mg/mg High 4.6-16.2 [facility] Comment on above: Performed By: #### 1 [id number], [id number], 2367340 ####[facility] (DEFAULT)[address] [place] [address] Sputum Cultureon 09-15-2023 Bacteria identified Respiratory culture [facility] Comment on above: Performed By: #### 6 [id number] ####[facility] (DEFAULT)[address] [place] [address] Telemetry Stripson Telemetry Strips [id number]#[id number] Normal [facility] .Auto Diff 1on 09-14-2023 Auto Mifflin % 7 % Normal -12 [facility] Comment on above: Performed By: #### 1 [id number], 195792574, 1256730, 4553694, 1756556, 42556852 ####[facility] (DEFAULT)[address] [place] [address] Baso Abs# 0.0 x10 Normal 0.0-0.2 [facility] Comment on above: Performed By: #### 1 [id number], 605816040, 5399543, 4083181, 2272586, 88981139 ####[facility] (DEFAULT)[address] [place] [address] 09976 Basophils/100 WBC (Bld) 0.3 % Normal 0.2-2.0 [facility] Comment on above: Performed By: #### 1 [id number], 304891283, 5166278, 5816642, 3568746, 22230367 ####[facility] (DEFAULT)[address] [place] [address] 94677 Eos Abs# 0.2 x10 Normal 0.0-0.4 [facility] Comment on above: Performed By: #### 1 [id number], 929373687, 8357709, 1922130, 1411944, 91135960 ####[facility] (DEFAULT)[address] [place] [address] 83580 Eosinophils/100 WBC (Bld) 2.2 % Normal 0.9-4.0 [facility] Comment on above: Performed By: #### 1 [id number], 456749307, 7805993, 7897108, 4809115, 15476149 ####[facility] (DEFAULT)[address] [place] [address] 00514 Lymph Abs# 0.3 x10 Low 1.3-2.9 [facility] Comment on above: Performed By: #### 1 755502453, 904270847, 7703783, 5719136, 5102813, 75937192 ####[facility] (DEFAULT)[address] [place] [address] 36413 Lymphocytes/100 WBC (Bld) 4 % Low 14-48 [facility] Comment on above: Performed By: #### 1 012970630, 793665457, 9655897, 4074530, 4934422, 19156909 ####[facility] (DEFAULT)[address] [place] [address] 72369 Mifflin Abs# 0.6 x10 Normal 0.0-0.8 [facility] Comment on above: Performed By: #### 1 [id number], 050863150, 3281017, 9554483, 3863530, 42906322 ####[facility] (DEFAULT)[address] [place] [address] Neut Abs# 6.8 x10 Normal 1.5-9.2 [facility] Comment on above: Performed By: #### 1 474432284, 134374783, 1615082, 5333056, 0070711, 79497132 ####[facility] (DEFAULT)[address] [place] [address] Neutrophils/100 WBC (Bld) 86 % Normal 44-88 [facility] Comment on above: Performed By: #### 1 137451782, 934800656, 2597317, 4622345, 6556324, 96903548 ####[facility] (DEFAULT)[address] [place] [address] CBC w/ Auto Diffon Erythrocyte distribution width (RBC) [Ratio] 15.2 % High 11.5-15.0 [facility] Comment on above: Performed By: #### 1 454855576, 902397943, 2407583, 8940794, 2515580, 94268147 ####[facility] (DEFAULT)[address] [place] [address] Hematocrit (Bld) [Volume fraction] 27.8 % Low 33.7-40.4 [facility] Comment on above: Performed By: #### 1 323526754, 542676295, 4504024, 0193104, 2981806, 69778152 ####[facility] (DEFAULT)[address] [place] [address] Hemoglobin (Bld) [Mass/Vol] 9.6 g/dL Low 11.3-15.9 [facility] Comment on above: Performed By: #### 1 [id number], 708395012, 8825001, 0389992, 0724507, 32142443 ####[facility] (DEFAULT)[address] [place] [address] Man Diff? Auto Invalid Interpretation Code [facility] Comment on above: Performed By: #### 1 [id number], 754988771, 3182527, 5501239, 2628157, 50993921 ####[facility] (DEFAULT)[address] [place] [address] 02643 MCH (RBC) [Entitic mass] 28 pg Normal 24-34 [facility] Comment on above: Performed By: #### 1 480361589, 113015697, 6107038, 9114566, 4114203, 93244881 ####[facility] (DEFAULT)[address] [place] [address] 26856 MCHC (RBC) [Mass/Vol] 35 g/dL Normal 26-37 [facility] Comment on above: Performed By: #### 1 638649557, 238715722, 2484759, 0167040, 8843460, 55482070 ####[facility] (DEFAULT)[address] [place] [address] MCV (RBC) [Entitic vol] 80 fL Low 81-100 [facility] Comment on above: Performed By: #### 1 053473014, 375118823, 2719715, 2089301, 3882485, 97879194 ####[facility] (DEFAULT)[address] [place] [address] 12185 Platelet 196 x10 Normal 138-427 [facility] Comment on above: Performed By: #### 1 548267790, 761720270, 8462097, 4197941, 0752672, 47889522 ####[facility] (DEFAULT)[address] [place] [address] 99121 Platelet mean volume (Bld) [Entitic vol] 8.0 fL Normal 6.3-10.2 [facility] Comment on above: Performed By: #### 1 [id number], 498276293, 3141035, 8231474, 8282383, 71826144 ####[facility] (DEFAULT)[address] [place] [address] RBC 3.46 x10 Low 3.70-5.30 [facility] Comment on above: Performed By: #### 1 181991700, 826904220, 5254854, 0556763, 6069665, 91723694 ####[facility] (DEFAULT)[address] [place] [address] WBC 7.9 x10 Normal 3.5-10.5 [facility] Comment on above: Performed By: #### 1 375179759, 928410252, 5418244, 8468312, 9999369, 14416993 ####[facility] (DEFAULT)[address] [place] [address] CRPon 09-14-2023 CRP 19.6 mg/dL High <=0.5 [facility] Comment on above: Performed By: #### 1 [id number], 866270296, 0628777, 0542081, 1201451, 47868244 ####[facility] (DEFAULT)[address] [place] [address] 41820 Magnesiumon 09-14-2023 Magnesium [Mass/Vol] 1.89 mg/dL Normal 1.80-2.50 [facility] Comment on above: Performed By: #### 1 265882950, 369785888, 5383607, 3929684, 3318968, 03033869 ####[facility] (DEFAULT)[address] [place] [address] 48713 Outside Recordson 09-14-2023 Outside Records [id number]#[id number] Normal [facility] Procalcitoninon 09-14-2023 Procalcitonin 3.464 ng/mL High 0.500-1.000 [facility] Comment on above: Performed By: #### 1 [id number], 365104454, 3853066, 4095386, 8406034, 20358798 ####[facility] (DEFAULT)[address] [place] [address] 29774 Progress Note - Nurseon 08-27 Progress Note - Nurse Normal [facility] Renal Function Panel Standar don 09-14-2023 eGFR Non AA >60 Invalid Interpretation Code [facility] Comment on above: Performed By: #### 1 [id number], 174116149, 9069338, 6113157, 2195045, 31569859 ####[facility] (DEFAULT)[address] [place] [address] 98363 eGFR AA >60 Invalid Interpretation Code [facility] Comment on above: Performed By: #### 1 [id number], 010016732, 3555908, 5081333, 8694574, 94135177 ####[facility] (DEFAULT)[address] [place] [address] 05618 Albumin [Mass/Vol] 2.9 g/dL Low 3.5-5.0 [facility] Comment on above: Performed By: #### 1 550674771, 074248352, 4795115, 4135777, 6985870, 37891514 ####[facility] (DEFAULT)[address] [place] [address] 69714 Anion gap [Moles/Vol] 5.0 mmol/L Normal 5.0-19.0 [facility] Comment on above: Performed By: #### 1 016133416, 367996186, 8778586, 9774901, 9587231, 69476081 ####[facility] (DEFAULT)[address] [place] [address] 14509 Calcium [Mass/Vol] 7.9 mg/dL Low 8.9-10.3 [facility] Comment on above: Performed By: #### 1 002265495, 336837829, 9571345, 4626587, 6109519, 73607050 ####[facility] (DEFAULT)[address] [place] [address] 29978 Chloride [Moles/Vol] 108 mmol/L Normal 101-111 [facility] Comment on above: Performed By: #### 1 621750962, 906619104, 9879752, 6309239, 6705414, 95244809 ####[facility] (DEFAULT)[address] [place] [address] 28393 CO2 [Moles/Vol] 26 mmol/L Normal 21-32 [facility] Comment on above: Performed By: #### 1 935600658, 494397071, 4890626, 3257138, 8427347, 66516643 ####[facility] (DEFAULT)[address] [place] [address] 05528 Creatinine [Mass/Vol] 0.76 mg/dL Normal 0.60-1.30 [facility] Comment on above: Performed By: #### 1 338764042, 749662615, 7417053, 0066233, 4215950, 05989888 ####[facility] (DEFAULT)[address] [place] [address] 05640 Glucose [Mass/Vol] 111.0 mg/dL Normal 74.0-118.0 [facility] Comment on above: Performed By: #### 1 811283512, 773341608, 7928930, 1362457, 8127781, 51025078 ####[facility] (DEFAULT)[address] [place] [address] 17928 Osmolality 275 mOsm/L Invalid Interpretation Code [facility] Comment on above: Performed By: #### 1 248598968, 743487520, 4311468, 2162275, 9491487, 79899078 ####[facility] (DEFAULT)[address] [place] [address] 11758 Phosphate [Mass/Vol] 2.3 mg/dL Low 2.5-4.6 [facility] Comment on above: Performed By: #### 1 597962219, 284207120, 9581680, 9632414, 7785454, 15239985 ####[facility] (DEFAULT)[address] [place] [address] 78900 Potassium [Moles/Vol] 3.0 mmol/L Low 3.6-5.1 [facility] Comment on above: Performed By: #### 1 031732170, 501162216, 3885309, 8485544, 8236835, 60443489 ####[facility] (DEFAULT)[address] [place] [address] 39249 Sodium [Moles/Vol] 136.0 mmol/L Normal 136.0-144.0 [facility] Comment on above: Performed By: #### 1 335401768, 937789290, 3821663, 0075112, 1121198, 98960479 ####[facility] (DEFAULT)[address] [place] [address] 80531 Urea nitrogen [Mass/Vol] 19 mg/dL Normal 8-26 [facility] Comment on above: Performed By: #### 1 586031121, 532512824, 0854557, 0148603, 3613016, 80713322 ####[facility] (DEFAULT)[address] [place] [address] 76356 Urea nitrogen/Creatinine [Mass ratio] 25.0 mg/mg High 4.6-16.2 [facility] Comment on above: Performed By: #### 1 [id number], 849304527, 2948244, 7802871, 9928574, 17347284 ####[facility] (DEFAULT)[address] [place] [address] Telemetry Stripson Telemetry Strips [id number]#1.00OTGTIFF Normal [facility] .Auto Diff 1on 09-13-2023 Auto Mifflin % 5 % Normal -12 [facility] Comment on above: Performed By: #### 1 2228600, 8820042 ####[facility] (DEFAULT)[address] [place] [address] 06304 Baso Abs# 0.0 x10 Normal 0.0-0.2 [facility] Comment on above: Performed By: #### 1 2999522, 5267975 ####[facility] (DEFAULT)[address] [place] [address] 22568 Basophils/100 WBC (Bld) 0.2 % Normal 0.2-2.0 [facility] Comment on above: Performed By: #### 1 9771658, 2660398 ####[facility] (DEFAULT)[address] [place] [address] 62646 Eos Abs# 0.0 x10 Normal 0.0-0.4 [facility] Comment on above: Performed By: #### 1 6345527, 8651016 ####[facility] (DEFAULT)[address] [place] [address] 06601 Eosinophils/100 WBC (Bld) 0.1 % Low 0.9-4.0 [facility] Comment on above: Performed By: #### 1 8211110, 1981441 ####[facility] (DEFAULT)[address] [place] [address] 22147 Lymph Abs# 0.4 x10 Low 1.3-2.9 [facility] Comment on above: Performed By: #### 1 3383092, 3315443 ####[facility] (DEFAULT)[address] [place] [address] 94643 Lymphocytes/100 WBC (Bld) 4 % Low 14-48 [facility] Comment on above: Performed By: #### 1 7526333, 7857323 ####[facility] (DEFAULT)[address] [place] [address] 98273 Mifflin Abs# 0.5 x10 Normal 0.0-0.8 [facility] Comment on above: Performed By: #### 1 7408415, 4418601 ####[facility] (DEFAULT)[address] [place] [address] 05323 Neut Abs# 9.2 x10 Normal 1.5-9.2 [facility] Comment on above: Performed By: #### 1 7671295, 0190319 ####[facility] (DEFAULT)[address] [place] [address] 39329 Neutrophils/100 WBC (Bld) 90 % High 44-88 [facility] Comment on above: Performed By: #### 1 2123534, 1934880 ####[facility] (DEFAULT)[address] [place] [address] 78530 BMP Standardon 09-13-2023 eGFR Non AA >60 Invalid Interpretation Code [facility] Comment on above: Performed By: #### 1 [id number], 831689584, 3192585 ####[facility] (DEFAULT)[address] [place] [address] 54493 eGFR AA >60 Invalid Interpretation Code [facility] Comment on above: Performed By: #### 1 [id number], 629356931, 8123135 ####[facility] (DEFAULT)[address] [place] [address] 29834 Anion gap [Moles/Vol] 10.3 mmol/L Normal 5.0-19.0 [facility] Comment on above: Performed By: #### 1 814535789, 971535086, 6123286 ####[facility] (DEFAULT)[address] [place] [address] 20689 Calcium [Mass/Vol] 8.4 mg/dL Low 8.9-10.3 [facility] Comment on above: Performed By: #### 1 [id number], 079807138, 9702682 ####[facility] (DEFAULT)[address] [place] [address] 43056 Chloride [Moles/Vol] 104 mmol/L Normal 101-111 [facility] Comment on above: Performed By: #### 1 147678266, 839592886, 6303263 ####[facility] (DEFAULT)[address] [place] [address] 34752 CO2 [Moles/Vol] 24 mmol/L Normal 21-32 [facility] Comment on above: Performed By: #### 1 340195140, 698356583, 9886832 ####[facility] (DEFAULT)[address] [place] [address] 64604 Creatinine [Mass/Vol] 0.70 mg/dL Normal 0.60-1.30 [facility] Comment on above: Performed By: #### 1 407041195, 597805647, 7842743 ####[facility] (DEFAULT)[address] [place] [address] 03318 Glucose [Mass/Vol] 99.0 mg/dL Normal 74.0-118.0 [facility] Comment on above: Performed By: #### 1 522961423, 530556158, 5775188 ####[facility] (DEFAULT)[address] [place] [address] 78014 Osmolality 271 mOsm/L Invalid Interpretation Code [facility] Comment on above: Performed By: #### 1 477309248, 926264635, 0178859 ####[facility] (DEFAULT)[address] [place] [address] 14867 Potassium [Moles/Vol] 3.3 mmol/L Low 3.6-5.1 [facility] Comment on above: Performed By: #### 1 711959982, 167395715, 9614405 ####[facility] (DEFAULT)[address] [place] [address] Sodium [Moles/Vol] 135.0 mmol/L Low 136.0-144.0 [facility] Comment on above: Performed By: #### 1 027501472, 987769294, 1789254 ####[facility] (DEFAULT)[address] [place] [address] Urea nitrogen [Mass/Vol] 16 mg/dL Normal 8-26 [facility] Comment on above: Performed By: #### 1 449275583, 431950912, 6579625 ####[facility] (DEFAULT)[address] [place] [address] Urea nitrogen/Creatinine [Mass ratio] 22.8 mg/mg High 4.6-16.2 [facility] Comment on above: Performed By: #### 1 648797838, 385544735, 7666300 ####[facility] (DEFAULT)[address] [place] [address] CBC w/ Auto Diffon 4 Erythrocyte distribution width (RBC) [Ratio] 15.4 % High 11.5-15.0 [facility] Comment on above: Performed By: #### 1 [id number], 2657445 ####[facility] (DEFAULT)[address] [place] [address] Hematocrit (Bld) [Volume fraction] 29.2 % Low 33.7-40.4 [facility] Comment on above: Performed By: #### 1 9273324, 5776121 ####[facility] (DEFAULT)[address] [place] [address] Hemoglobin (Bld) [Mass/Vol] 10.0 g/dL Low 11.3-15.9 [facility] Comment on above: Performed By: #### 1 0005597, 5072373 ####[facility] (DEFAULT)[address] [place] [address] Man Diff? Auto Invalid Interpretation Code [facility] Comment on above: Performed By: #### 1 4287155, 2380057 ####[facility] (DEFAULT)[address] [place] [address] 41048 MCH (RBC) [Entitic mass] 28 pg Normal 24-34 [facility] Comment on above: Performed By: #### 1 2622265, 4910314 ####[facility] (DEFAULT)[address] [place] [address] 38131 MCHC (RBC) [Mass/Vol] 34 g/dL Normal 26-37 [facility] Comment on above: Performed By: #### 1 7816592, 2904056 ####[facility] (DEFAULT)[address] [place] [address] MCV (RBC) [Entitic vol] 82 fL Normal 81-100 [facility] Comment on above: Performed By: #### 1 6516820, 4493455 ####[facility] (DEFAULT)[address] [place] [address] 86125 Platelet 214 x10 Normal 138-427 [facility] Comment on above: Performed By: #### 1 8104480, 4270663 ####[facility] (DEFAULT)[address] [place] [address] 50161 Platelet mean volume (Bld) [Entitic vol] 8.0 fL Normal 6.3-10.2 [facility] Comment on above: Performed By: #### 1 4564989, 4394184 ####[facility] (DEFAULT)[address] [place] [address] 20904 RBC 3.58 x10 Low 3.70-5.30 [facility] Comment on above: Performed By: #### 1 0791757, 0279099 ####[facility] (DEFAULT)[address] [place] [address] 51710 WBC 10.2 x10 Normal 3.5-10.5 [facility] Comment on above: Performed By: #### 1 5995455, 1137543 ####[facility] (DEFAULT)[address] [place] [address] 66006 Free T4on 09-13-2023 Free T4 [Mass/Vol] 1.27 ng/dL High 0.61-1.12 [facility] Comment on above: Performed By: #### 1 [id number], 644452496, 4962851 ####[facility] (DEFAULT)[address] [place] [address] 23464 Nutrition Noteon 09-13-2023 Nutrition Note Normal [facility] Pharmacy Noteon 09-13-2023 Pharmacy Note Normal [facility] TSH w/ Reflex to FT4on 09-12 TSH Qn 0.08 m[IU]/L Low 0.45-5.33 [facility] Comment on above: Performed By: #### 1 [id number], 332512317, 9503522 ####[facility] (DEFAULT)[address] [place] [address] 35670 Telemetry Stripson Telemetry Strips [id number] Normal [facility] CMP Standardon 09-12-2023 eGFR Non AA >60 Invalid Interpretation Code [facility] Comment on above: Performed By: #### 7 472853, 9708735593, 7530219, 98443857, [id number] ####[facility] (DEFAULT)[address] [place] [address] 59560 eGFR AA >60 Invalid Interpretation Code [facility] Comment on above: Performed By: #### 7 044772, 8588127721, 0296782, 29803182, [id number] ####[facility] (DEFAULT)[address] [place] [address] 41404 Albumin [Mass/Vol] 3.6 g/dL Normal 3.5-5.0 [facility] Comment on above: Performed By: #### 7 048038, 6018112746, 3293976, 23374179, 4214859341 ####[facility] (DEFAULT)[address] [place] [address] 43648 Albumin/Globulin [Mass ratio] 1.1 {ratio} Low 1.4-2.6 [facility] Comment on above: Performed By: #### 7 414587, 3418086103, 5292005, 25222095, 1190929549 ####[facility] (DEFAULT)[address] [place] [address] 51479 Alk Phos 85 IU/L Normal 32-91 [facility] Comment on above: Performed By: #### 7 199925, 6366987742, 7348210, 64423268, 2140515327 ####[facility] (DEFAULT)[address] [place] [address] 25964 ALT [Catalytic activity/Vol] 40.0 U/L Normal 14.0-54.0 [facility] Comment on above: Performed By: #### 7 601109, 6278123908, 1880173, 61342641, 4103540492 ####[facility] (DEFAULT)[address] [place] [address] 74694 Anion gap [Moles/Vol] 12.7 mmol/L Normal 5.0-19.0 [facility] Comment on above: Performed By: #### 7 321560, 6687820305, 6572814, 82776313, 4455980112 ####[facility] (DEFAULT)[address] [place] [address] 48012 AST [Catalytic activity/Vol] 49 U/L High 15-41 [facility] Comment on above: Performed By: #### 7 424446, 9753085155, [id number], [id number], [id number] ####[facility] (DEFAULT)[address] [place] [address] 59676 Bili Total 0.7 mg/dL Normal 0.3-1.2 [facility] Comment on above: Performed By: #### 7 [id number], [id number], [id number], [id number], [id number] ####[facility] (DEFAULT)[address] [place] [address] 02579 Calcium [Mass/Vol] 8.6 mg/dL Low 8.9-10.3 [facility] Comment on above: Performed By: #### 7 [id number], [id number], [id number], [id number], [id number] ####[facility] (DEFAULT)[address] [place] [address] 29978 Chloride [Moles/Vol] 102 mmol/L Normal 101-111 [facility] Comment on above: Performed By: #### 7 [id number], [id number], [id number], [id number], [id number] ####[facility] (DEFAULT)[address] [place] [address] 80447 CO2 [Moles/Vol] 26 mmol/L Normal 21-32 [facility] Comment on above: Performed By: #### 7 [id number], [id number], [id number], [id number], [id number] ####[facility] (DEFAULT)[address] [place] [place] [address] 58475 Creatinine [Mass/Vol] 0.78 mg/dL Normal 0.60-1.30 [facility] Comment on above: Performed By: #### 7 361509, [id number], 6563846, 49862440, [id number] ####[facility] (DEFAULT)[address] [place] [address] 24475 Globulin (S) [Mass/Vol] 3.2 g/dL Normal 1.5-4.3 [facility] Comment on above: Performed By: #### 7 812399, [id number], 4985786, 83014973, [id number] ####[facility] (DEFAULT)[address] [place] [address] 34129 Glucose [Mass/Vol] 122.0 mg/dL High 74.0-118.0 [facility] Comment on above: Performed By: #### 7 007075, [id number], 5200758, 78423175, [id number] ####[facility] (DEFAULT)[address] [place] [address] 05933 Osmolality 283 mOsm/L Invalid Interpretation Code [facility] Comment on above: Performed By: #### 7 418248, [id number], 8169187, 47370567, [id number] ####[facility] (DEFAULT)[address] [place] [address] 37027 Potassium [Moles/Vol] 3.7 mmol/L Normal 3.6-5.1 [facility] Comment on above: Performed By: #### 7 954922, [id number], 4166808, 76121489, 6105410041 ####[facility] (DEFAULT)[address] [place] [address] 78281 Protein [Mass/Vol] 6.8 g/dL Normal 6.5-8.1 [facility] Comment on above: Performed By: #### 7 569372, 8467872599, 4624760, 66149359, 3717913811 ####[facility] (DEFAULT)[address] [place] [address] 41423 Sodium [Moles/Vol] 137.0 mmol/L Normal 136.0-144.0 [facility] Comment on above: Performed By: #### 7 349850, 0634262149, 8715374, 41026164, 2535331479 ####[facility] (DEFAULT)[address] [place] [address] 55208 Urea nitrogen [Mass/Vol] 35 mg/dL High 8- [facility] Comment on above: Performed By: #### 7 371651, [id number], 1885847, 58798299, [id number] ####[facility] (DEFAULT)[address] [place] [address] 16841 Urea nitrogen/Creatinine [Mass ratio] 44.8 mg/mg High 4.6-16.2 [facility] Comment on above: Performed By: #### 7 078244, [id number], 7623097, 65635623, 9474460852 ####[facility] (DEFAULT)[address] [place] [address] Chest W/O Contraston 08-27 CT Chest W/O Contrast Normal [facility] ED Clinical Summaryon 2023 ED Clinical Summary Normal [facility] ED Patient Education Noteon 09-12-2023 ED Patient Education Note Education Materials Normal [facility] ED Patient Summaryon 024 ED Patient Summary Normal [facility] Lactic Acidon 09-12-2023 Lactic Acid 10.3 mg/dL Normal 4.5-19.8 [facility] Comment on above: Performed By: #### 2 701246 ####[facility] (DEFAULT)[address] [place] [address] 84708 Magnesiumon 09-12-2023 Magnesium [Mass/Vol] 1.78 mg/dL Low 1.80-2.50 [facility] Comment on above: Performed By: #### 7 660071, 0100859972, 2491033, 35310720, 1536798826 ####[facility] (DEFAULT)[address] [place] [address] 26620 Pharmacy Noteon 09-12-2023 Pharmacy Note Normal [facility] Progress Note - Nurseon 08-27 Progress Note - Nurse [facility] Telemetry Stripson Telemetry Strips [id number]#1.00[facility]-12-2023 Troponin I High Sensitivity 4.7 pg/mL Normal <=15.0 [facility] Comment on above: Performed By: #### 7 310368, [id number], 9621395, 58464508, 8168514322 ####[facility] (DEFAULT)[address] [place] [address] UA w Culture if Ind Standard on 09-12-2023 Breakpoint UA Normal [facility] Comment on above: Performed By: #### 1 [id number] ####[facility] (DEFAULT)[address] [place] [address] Color (U) Yellow Normal [facility] Comment on above: Performed By: #### 1 [id number] ####[facility] (DEFAULT)[address] [place] [address] 64480 Culture? Not Indicated Invalid Interpretation Code [facility] Comment on above: Result Comment: Resu lt created by rule GL_MAGR_ADD_[id number] Performed By: #### 1 [id number] ####[facility] (DEFAULT)[address] [place] [address] 54638 Glucose (U) [Mass/Vol] Negative Normal [facility] Comment on above: Performed By: #### 1 [id number] ####[facility] (DEFAULT)[address] [place] [address] 10699 Ketones Ql (U) Negative Normal [facility] Comment on above: Performed By: #### 1 [id number] ####[facility] (DEFAULT)[address] [place] [address] Micro? Not Indicated Invalid Interpretation Code [facility] Comment on above: Result Comment: Resu lt created by rule GL_MAGR_ADD_UA_MICRO Performed By: #### 1 [id number] ####[facility] (DEFAULT)[address] [place] [address] UA Bilirubin Negative Normal [facility] Comment on above: Performed By: #### 1 [id number] ####[facility] (DEFAULT)[address] [place] [address] UA Blood Negative Normal NEGATIVE [facility] Comment on above: Performed By: #### 1 [id number] ####[facility] (DEFAULT)[address] [place] [address] UA Clarity CLEAR Normal CLEAR [facility] Comment on above: Performed By: #### 1 [id number] ####[facility] (DEFAULT)[address] [place] [address] 35969 UA Leuk Est Negative Normal NEGATIVE [facility] Comment on above: Performed By: #### 1 [id number] ####[facility] (DEFAULT)[address] [place] [address] 18613 UA Nitrite Negative Normal NEGATIVE [facility] Comment on above: Performed By: #### 1 [id number] ####[facility] (DEFAULT)[address] [place] [address] 54278 UA pH 8.5 Normal 5-8 [facility] Comment on above: Performed By: #### 1 [id number] ####[facility] (DEFAULT)[address] [place] [address] 34689 UA Protein Negative Normal NEGATIVE [facility] Comment on above: Performed By: #### 1 [id number] ####[facility] (DEFAULT)[address] [place] [address] 77440 UA Spec Grav 1.020 Normal 1.001-1.035 [facility] Comment on above: Performed By: #### 1 [id number] ####[facility] (DEFAULT)[address] [place] [address] 42785 UA Urobilinogen 0.2 mg/dL Normal 0.2-1.0 [facility] Comment on above: Performed By: #### 1 [id number] ####[facility] (DEFAULT)[address] [place] [address] 68032 Urine Source Clean Catch Normal [facility] Comment on above: Performed By: #### 1 [id number] ####[facility] (DEFAULT)[address] [place] [address] 65784 XR Abdomen 2 Viewson 024 XR Abdomen 2 Views Normal [facility] XR Chest 2 Viewson 4 XR Chest 2 Views Normal [facility] .Auto Diff 1on 09-11-2023 Auto Mifflin % 3 % Normal -12 [facility] Comment on above: Performed By: #### 7 681122, 8625650140, 9642405, 80505514, 0130609086 ####[facility] (DEFAULT)[address] [place] [address] 96210 Baso Abs# 0.0 x10 Normal 0.0-0.2 [facility] Comment on above: Performed By: #### 7 135471, 4290268618, 0784840, 73663152, 6630190577 ####[facility] (DEFAULT)[address] [place] [address] 57713 Basophils/100 WBC (Bld) 0.4 % Normal 0.2-2.0 [facility] Comment on above: Performed By: #### 7 519070, 1347919538, 3237875, 73558316, 1420481414 ####[facility] (DEFAULT)[address] [place] [address] 32888 Eos Abs# 0.0 x10 Normal 0.0-0.4 [facility] Comment on above: Performed By: #### 7 225489, 9409429195, 9014323, 74191996, 0855462947 ####[facility] (DEFAULT)[address] [place] [address] 52852 Eosinophils/100 WBC (Bld) 0.1 % Low 0.9-4.0 [facility] Comment on above: Performed By: #### 7 691900, 1945995886, 2744525, 04012558, 6651199874 ####[facility] (DEFAULT)[address] [place] [address] Lymph Abs# 0.2 x10 Low 1.3-2.9 [facility] Comment on above: Performed By: #### 7 289707, 2858983768, 7514129, 52399588, 9828672895 ####[facility] (DEFAULT)[address] [place] [address] Lymphocytes/100 WBC (Bld) 2 % Low 14-48 [facility] Comment on above: Performed By: #### 7 114494, 6847415254, 8115116, 89801241, 1412169725 ####[facility] (DEFAULT)[address] [place] [address] Mifflin Abs# 0.3 x10 Normal 0.0-0.8 [facility] Comment on above: Performed By: #### 7 551598, 7452440780, 2052740, 55025223, 0336770661 ####[facility] (DEFAULT)[address] [place] [address] Neut Abs# 8.2 x10 Normal 1.5-9.2 [facility] Comment on above: Performed By: #### 7 888711, 0598377760, 3912476, 63165344, 9793647943 ####[facility] (DEFAULT)[address] [place] [address] Neutrophils/100 WBC (Bld) 94 % High 44-88 [facility] Comment on above: Performed By: #### 7 819521, 6757669225, 5121829, 34689015, 5618388061 ####[facility] (DEFAULT)[address] [place] [address] CBC w/ Auto Diffon 4 Erythrocyte distribution width (RBC) [Ratio] 15.4 % High 11.5-15.0 [facility] Comment on above: Performed By: #### 7 852227, 1784138284, 9680943, 19405736, 0506246408 ####[facility] (DEFAULT)[address] [place] [address] Hematocrit (Bld) [Volume fraction] 30.8 % Low 33.7-40.4 [facility] Comment on above: Performed By: #### 7 068268, 9248887746, 6517988, 78418944, 1086366752 ####[facility] (DEFAULT)[address] [place] [address] Hemoglobin (Bld) [Mass/Vol] 10.7 g/dL Low 11.3-15.9 [facility] Comment on above: Performed By: #### 7 699071, 2419722684, 1243897, 12481302, 7386870765 ####[facility] (DEFAULT)[address] [place] [address] Man Diff? Auto Invalid Interpretation Code [facility] Comment on above: Performed By: #### 7 089021, 7058350531, 4726619, 55261420, 4070490578 ####[facility] (DEFAULT)[address] [place] [address] MCH (RBC) [Entitic mass] 28 pg Normal 24-34 [facility] Comment on above: Performed By: #### 7 668338, 7707561585, 6893951, 62809687, 9661098294 ####[facility] (DEFAULT)[address] [place] [address] MCHC (RBC) [Mass/Vol] 35 g/dL Normal 26-37 [facility] Comment on above: Performed By: #### 7 745716, 5644346604, 2571609, 69767755, 8085573756 ####[facility] (DEFAULT)[address] [place] [address] MCV (RBC) [Entitic vol] 81 fL Normal 81-100 [facility] Comment on above: Performed By: #### 7 104193, 2510661809, 1250545, 65329298, 3612047925 ####[facility] (DEFAULT)[address] [place] [address] 93766 Platelet 264 x10 Normal 138-427 [facility] Comment on above: Performed By: #### 7 627918, 8358599640, 6824050, 16623910, 8408271658 ####[facility] (DEFAULT)[address] [place] [address] 39694 Platelet mean volume (Bld) [Entitic vol] 7.7 fL Normal 6.3-10.2 [facility] Comment on above: Performed By: #### 7 346061, 8148749951, 7779369, 29101088, 8746728416 ####[facility] (DEFAULT)[address] [place] [address] 24835 RBC 3.81 x10 Normal 3.70-5.30 [facility] Comment on above: Performed By: #### 7 845379, 8934592292, 0974899, 32985631, 8299289805 ####[facility] (DEFAULT)[address] [place] [address] 11879 WBC 8.7 x10 Normal 3.5-10.5 [facility] Comment on above: Performed By: #### 7 810732, 2263251574, 3030309, 99901893, 6180839473 ####[facility] (DEFAULT)[address] [place] [address] 31483 ED Note - Physicianon 2023 ED Note - Physician [facility] ED Note-Nursingon 09-11-2023 ED Note-Nursing [facility] Outside Recordson 09-05-2023 Outside Records [id number]#1.00OTGTIF F Normal [facility] CASE MANAGEMon 09-02-2023 CASE MANAGEM Normal [facility] CBC panel Auto (Bld)on 09-01 Erythrocyte distribution width (RBC) [Ratio] 14.3 % Normal 11.5-15.0 [facility] Comment on above: Order Comment: Speci men Type: BLOOD SPECIMENOrdering Facility: [facility] Address: [address] [place] [address] Performed By: #### 5 8410-2 ####[facility] LABIA [id number] [place] [address] [place] Hematocrit (Bld) [Volume fraction] 33.2 % Low 36.0-46.0 [facility] Comment on above: Order Comment: Speci men Type: BLOOD SPECIMENOrdering Facility: [facility] Address: [address] [place] [address] Performed By: #### 5 8410-2 ####[facility] LABIA [id number] [place] [address] [place] Hemoglobin (Bld) [Mass/Vol] 11.0 g/dL Low 11.5-15.5 [facility] Comment on above: Order Comment: Speci men Type: BLOOD SPECIMENOrdering Facility: [facility] Address: [address] [place] [address] Performed By: #### 5 8410-2 ####[facility] [id number] [place] [address] [place] MCH (RBC) [Entitic mass] 26.6 pg Normal 26.0-34.0 [facility] Comment on above: Order Comment: Speci men Type: BLOOD SPECIMENOrdering Facility: [facility] Address: [address] [place] [address] Performed By: #### 5 8410-2 ####[facility] [id number] [place] [address] [place] MCHC (RBC) [Mass/Vol] 33.1 g/dL Normal 30.5-36.0 [facility] Comment on above: Order Comment: Speci men Type: BLOOD SPECIMENOrdering Facility: [facility] Address: [address] [place] [address] Performed By: #### 5 8410-2 ####[facility] [id number] [place] [address] [place] MCV (RBC) [Entitic vol] 80.4 fL Normal 80.0-100.0 [facility] Comment on above: Order Comment: Speci men Type: BLOOD SPECIMENOrdering Facility: [facility] Address: [address] [place] [address] Performed By: #### 5 8410-2 ####[facility] LABCLIA [id number] [place] [address] [place] Nucleated RBC (Bld) [#/Vol] 10*3/uL Normal <0.01 [facility] Comment on above: Order Comment: Speci men Type: BLOOD SPECIMENOrdering Facility: [facility] Address: [address] [place] [address] Performed By: #### 5 8410-2 ####[facility] LABCLIA [id number] [place] [address] [place] Platelet mean volume (Bld) [Entitic vol] 8.9 fL Low 9.0-12.7 [facility] Comment on above: Order Comment: Speci men Type: BLOOD SPECIMENOrdering Facility: [facility] Address: [address] [place] [address] Performed By: #### 5 8410-2 ####[facility] LABIA [id number] [place] [address] [place] Platelets (Bld) [#/Vol] 327 10*3/uL Normal 150-400 [facility] Comment on above: Order Comment: Speci men Type: BLOOD SPECIMENOrdering Facility: [facility] Address: [address] [place] [address] Performed By: #### 5 8410-2 ####[facility] LABCLIA [id number] [place] [address] [place] RBC (Bld) [#/Vol] 4.13 10*6/uL Normal 3.90-5.20 [facility] Comment on above: Order Comment: Speci men Type: BLOOD SPECIMENOrdering Facility: [facility] Address: [address] [place] [address] Performed By: #### 5 8410-2 ####[facility] LABCLIA [id number] [place] [address] [place] WBC (Bld) [#/Vol] 6.55 10*3/uL Normal 3.70-11.00 [facility] Comment on above: Order Comment: Speci men Type: BLOOD SPECIMENOrdering Facility: [facility] Address: [address] [place] [address] Performed By: #### 5 8410-2 ####[facility] LABCLIA [id number] [place] [address] [place] CNCOon 09-02-2023 CNCO Letter Text Normal [facility] CNDSon 09-02-2023 CNDS Normal [facility] Magnesium SerPl-mCncon 09-01 Magnesium [Mass/Vol] 1.8 mg/dL Normal 1.7-2.3 [facility] Comment on above: Order Comment: Speci men Type: BLOOD SPECIMENOrdering Facility: [facility] Address: [address] [place] [address] Performed By: #### 2 4362-6, ####[facility] LABCLIA [id number] [place] [address] [place] Renal function 2000 panelon 09-02-2023 Albumin [Mass/Vol] 3.7 g/dL Low 3.9-4.9 [facility] Comment on above: Order Comment: Speci men Type: BLOOD SPECIMENOrdering Facility: [facility] Address: [address] [place] [address] Performed By: #### 2 4362-6, ####[facility] LABCLIA [id number] [place] [address] [place] Anion gap [Moles/Vol] 11 mmol/L Normal 9-18 [facility] Comment on above: Order Comment: Speci men Type: BLOOD SPECIMENOrdering Facility: [facility] Address: [address] [place] [address] Performed By: #### 2 4362-6, ####[facility] LABCLIA [id number] [place] [address] [place] Calcium [Mass/Vol] 9.2 mg/dL Normal 8.5-10.2 [facility] Comment on above: Order Comment: Speci men Type: BLOOD SPECIMENOrdering Facility: [facility] Address: [address] [place] [address] Performed By: #### 2 4362-6, ####[facility] LABCLIA [id number] [place] [address] [place] Chloride [Moles/Vol] 100 mmol/L Normal 97-105 [facility] Comment on above: Order Comment: Speci men Type: BLOOD SPECIMENOrdering Facility: [facility] Address: [address] [place] [address] Performed By: #### 2 4362-6, ####[facility] LABCLIA [id number] [place] [address] [place] CO2 [Moles/Vol] 28 mmol/L Normal 22-30 [facility] Comment on above: Order Comment: Speci men Type: BLOOD SPECIMENOrdering Facility: [facility] Address: [address] [place], [place] [address] Performed By: #### 2 4362-6, ####[facility] LABCLIA [id number] [place] [address] [place] Creatinine [Mass/Vol] 0.73 mg/dL Normal 0.58-0.96 [facility] Comment on above: Order Comment: Speci men Type: BLOOD SPECIMENOrdering Facility: [facility] Address: [address] [place] [address] Performed By: #### 2 4362-6, ####[facility] LABIA [id number] [place] [address] [place] Creatinine and Glomerular filtration rate.predicted panel (S/P/Bld) 94 mL/min/1.73m??? Normal >=60 [facility] Comment on above: Order Comment: Nicolle phipps Type: BLOOD SPECIMENOrdering Facility: [facility] Address: [address] [place] [address] Result Comment: Tuyet mated Glomerular Filtration Rate (eGFR) is calculated using the 2020 CKD-EPI creatinine equation. This equation utilizes serum creatinine, sex, and age as parameters. The creatinine assay has traceable calibration to isotope dilution-mass spectrometry. Refer to KDIGO guidelines for clinical interpretation. In patients with unstable renal function, e.g. those with acute kidney injury, the eGFR may not accurately reflect actual GFR. Performed By: #### 2 4362-6, ####[facility] LABIA [id number] [place] [address] [place] Glucose [Mass/Vol] 87 mg/dL Normal 74-99 [facility] Comment on above: Order Comment: Nicolle phipps Type: BLOOD SPECIMENOrdering Facility: [facility] Address: [address] [place] [address] Result Comment: The [place] Diabetes Association (ADA) provides guidance for cutoff values for fasting glucose and random glucose. The ADA defines fasting as no caloric intake for at least 8 hours. Fasting plasma glucose results between 100 to 125 mg/dL indicate increased risk for diabetes (prediabetes).Fasting plasma glucose results greater than or equal to 126 mg/dL meet the criteria for diagnosis of diabetes. In the absence of unequivocal hyperglycemia, results should be confirmed by repeat testing. In a patient with classic symptoms of hyperglycemia or hyperglycemic crisis, random plasma glucose results greater than or equal to 200 mg/dL meet the criteria for diagnosis of diabetes.Reference: Standards of Medical Care in Diabetes 2016, [place] Diabetes Association. Diabetes Care. 2016.39(Suppl 1). Performed By: #### 2 4362-6, ####[facility] LABCLIA [id number] [address] [address] [place] Phosphate [Mass/Vol] 3.6 mg/dL Normal 2.7-4.8 [facility] Comment on above: Order Comment: Speci men Type: BLOOD SPECIMENOrdering Facility: [facility] Address: [address] [place], [place] [address] Performed By: #### 2 436-6, ####[facility] LABCLIA [id number] [address] [address] [place] Potassium [Moles/Vol] 4.0 mmol/L Normal 3.7-5.1 [facility] Comment on above: Order Comment: Speci men Type: BLOOD SPECIMENOrdering Facility: [facility] Address: [address] [place], [place] [address] Performed By: #### 2 43607-04, ####[facility] LABCLIA [id number] [address] [address] [place] Sodium [Moles/Vol] 139 mmol/L Normal 136-144 [facility] Comment on above: Order Comment: Speci men Type: BLOOD SPECIMENOrdering Facility: [facility] Address: [address] [place] [address] Performed By: #### 2 43607-04, ####[facility] LABCLIA [id number] [address] [address] [place] Urea nitrogen [Mass/Vol] 15 mg/dL Normal 7-21 [facility] Comment on above: Order Comment: Speci men Type: BLOOD SPECIMENOrdering Facility: [facility] Address: [address] [place] [address] Performed By: #### 2 4362-6, ####[facility] LABCLIA [id number] [address] [address] [place] CASE MANAGEMon 09-01-2023 CASE MANAGEM Normal [facility] CBC panel Auto (Bld)on 08-31 Erythrocyte distribution width (RBC) [Ratio] 13.9 % Normal 11.5-15.0 [facility] Comment on above: Order Comment: Speci men Type: BLOOD SPECIMENOrdering Facility: [facility] Address: [address] [place] [address] Performed By: #### 5 8410-2 ####[facility] LABIA [id number] [place] [address] [place] Hematocrit (Bld) [Volume fraction] 33.2 % Low 36.0-46.0 [facility] Comment on above: Order Comment: Speci men Type: BLOOD SPECIMENOrdering Facility: [facility] Address: [address] [place] [address] Performed By: #### 5 8410-2 ####[facility] LABIA [id number] [place] [address] [place] Hemoglobin (Bld) [Mass/Vol] 11.2 g/dL Low 11.5-15.5 [facility] Comment on above: Order Comment: Speci men Type: BLOOD SPECIMENOrdering Facility: [facility] Address: [address] [place] [address] Performed By: #### 5 8410-2 ####[facility] LABIA [id number] [place] [address] [place] MCH (RBC) [Entitic mass] 27.3 pg Normal 26.0-34.0 [facility] Comment on above: Order Comment: Speci men Type: BLOOD SPECIMENOrdering Facility: [facility] Address: [address] [place] [address] Performed By: #### 5 8410-2 ####[facility] LABIA [id number] [place] [address] [place] MCHC (RBC) [Mass/Vol] 33.7 g/dL Normal 30.5-36.0 [facility] Comment on above: Order Comment: Speci men Type: BLOOD SPECIMENOrdering Facility: [facility] Address: [address] [place] [address] Performed By: #### 5 8410-2 ####[facility] LABCLIA [id number] [place] [address] [place] MCV (RBC) [Entitic vol] 80.8 fL Normal 80.0-100.0 [facility] Comment on above: Order Comment: Speci men Type: BLOOD SPECIMENOrdering Facility: [facility] Address: [address] [place] [address] Performed By: #### 5 8410-2 ####[facility] LABCLIA [id number] [place] [address] [place] Nucleated RBC (Bld) [#/Vol] 10*3/uL Normal <0.01 [facility] Comment on above: Order Comment: Speci men Type: BLOOD SPECIMENOrdering Facility: [facility] Address: [address] [place] [address] Performed By: #### 5 8410-2 ####[facility] LABCLIA [id number] [place] [address] [place] Platelet mean volume (Bld) [Entitic vol] 9.2 fL Normal 9.0-12.7 [facility] Comment on above: Order Comment: Speci men Type: BLOOD SPECIMENOrdering Facility: [facility] Address: [address] [place] [address] Performed By: #### 5 8410-2 ####[facility] LABCLIA [id number] [place] [address] [place] Platelets (Bld) [#/Vol] 301 10*3/uL Normal 150-400 [facility] Comment on above: Order Comment: Speci men Type: BLOOD SPECIMENOrdering Facility: [facility] Address: [address] [place] [address] Performed By: #### 5 8410-2 ####[facility] LABIA [id number] [place] [address] [place] RBC (Bld) [#/Vol] 4.11 10*6/uL Normal 3.90-5.20 [facility] Comment on above: Order Comment: Speci men Type: BLOOD SPECIMENOrdering Facility: [facility] Address: [address] [place] [address] Performed By: #### 5 8410-2 ####[facility] LABIA [id number] [place] [address] [place] WBC (Bld) [#/Vol] 6.80 10*3/uL Normal 3.70-11.00 [facility] Comment on above: Order Comment: Speci men Type: BLOOD SPECIMENOrdering Facility: [facility] Address: [address] [place] [address] Performed By: #### 5 8410-2 ####[facility] LABIA [id number] [place] [address] [place] Magnesium SerPl-mCncon 08-31 Magnesium [Mass/Vol] 1.8 mg/dL Normal 1.7-2.3 [facility] Comment on above: Order Comment: Speci men Type: BLOOD SPECIMENOrdering Facility: [facility] Address: [address] [place] [address] Performed By: #### 1 9123-9, 24113-6 ####[facility] LABIA [id number] [place] [address] [place] PT EDon 09-01-2023 PT ED Normal [facility] Renal function 2000 panelon 09-01-2023 Albumin [Mass/Vol] 3.7 g/dL Low 3.9-4.9 [facility] Comment on above: Order Comment: Speci men Type: BLOOD SPECIMENOrdering Facility: [facility] Address: [address] [place] [id number] Performed By: #### 1 9123-9, 84923-4 ####[facility] LABCLIA [id number] [address] [address] [place] Anion gap [Moles/Vol] 10 mmol/L Normal 9-18 [facility] Comment on above: Order Comment: Speci men Type: BLOOD SPECIMENOrdering Facility: [facility] Address: [address] [place], [place] [address] Performed By: #### 1 9123-9, 37824-0 ####[facility] LABCLIA [id number] [place] [address] [place] Calcium [Mass/Vol] 9.2 mg/dL Normal 8.5-10.2 [facility] Comment on above: Order Comment: Speci men Type: BLOOD SPECIMENOrdering Facility: [facility] Address: [address] [place], [place] [address] Performed By: #### 1 9123-9, 87153-8 ####[facility] LABCLIA [id number] [place] [address] [place] Chloride [Moles/Vol] 101 mmol/L Normal 97-105 [facility] Comment on above: Order Comment: Speci men Type: BLOOD SPECIMENOrdering Facility: [facility] Address: [address] [place], [place] [address] Performed By: #### 1 9123-9, 26973-1 ####[facility] LABCLIA [id number] [place] [address] [place] CO2 [Moles/Vol] 28 mmol/L Normal 22-30 [facility] Comment on above: Order Comment: Speci men Type: BLOOD SPECIMENOrdering Facility: [facility] Address: [address] [place], [place] [address] Performed By: #### 1 9123-9, 09669-5 ####[facility] LABIA [id number] [place] [address] [place] Creatinine [Mass/Vol] 0.80 mg/dL Normal 0.58-0.96 [facility] Comment on above: Order Comment: Nicolle phipps Type: BLOOD SPECIMENOrdering Facility: [facility] Address: [address] [place] [address] Performed By: #### 1 9123-9, 29092-8 ####[facility] LABIA [id number] [place] [address] [place] Creatinine and Glomerular filtration rate.predicted panel (S/P/Bld) 84 mL/min/1.73m??? Normal >=60 [facility] Comment on above: Order Comment: [facility] Type: BLOOD SPECIMENOrdering Facility: [facility] Address: [address] [place] [address] Result Comment: Tuyet mated Glomerular Filtration Rate (eGFR) is calculated using the 2020 CKD-EPI creatinine equation. This equation utilizes serum creatinine, sex, and age as parameters. The creatinine assay has traceable calibration to isotope dilution-mass spectrometry. Refer to KDIGO guidelines for clinical interpretation. In patients with unstable renal function, e.g. those with acute kidney injury, the eGFR may not accurately reflect actual GFR. Performed By: #### 1 9123-9, 27895-7 ####[facility] [id number] [place] [address] [place] Glucose [Mass/Vol] 94 mg/dL Normal 74-99 [facility] Comment on above: Order Comment: Heribertoi moise Type: BLOOD SPECIMENOrdering Facility: [facility] Address: [address] [place] [address] Result Comment: The [place] Diabetes Association (ADA) provides guidance for cutoff values for fasting glucose and random glucose. The ADA defines fasting as no caloric intake for at least 8 hours. Fasting plasma glucose results between 100 to 125 mg/dL indicate increased risk for diabetes (prediabetes).Fasting plasma glucose results greater than or equal to 126 mg/dL meet the criteria for diagnosis of diabetes. In the absence of unequivocal hyperglycemia, results should be confirmed by repeat testing. In a patient with classic symptoms of hyperglycemia or hyperglycemic crisis, random plasma glucose results greater than or equal to 200 mg/dL meet the criteria for diagnosis of diabetes.Reference: Standards of Medical Care in Diabetes 2016, [place] Diabetes Association. Diabetes Care. 2016.39(Suppl 1). Performed By: #### 1 9123-9, 40496-0 ####[facility] LABCLIA [id number] [place] [address] [place] Phosphate [Mass/Vol] 4.2 mg/dL Normal 2.7-4.8 [facility] Comment on above: Order Comment: Speci men Type: BLOOD SPECIMENOrdering Facility: [facility] Address: [address] [place] [address] Performed By: #### 1 9123-9, 06434-0 ####[facility] LABCLIA [id number] [place] [address] [place] Potassium [Moles/Vol] 3.8 mmol/L Normal 3.7-5.1 [facility] Comment on above: Order Comment: Speci men Type: BLOOD SPECIMENOrdering Facility: [facility] Address: [address] [place] [address] Performed By: #### 1 9123-9, 17637-3 ####[facility] LABIA [id number] [place] [address] [place] Sodium [Moles/Vol] 139 mmol/L Normal 136-144 [facility] Comment on above: Order Comment: Speci men Type: BLOOD SPECIMENOrdering Facility: [facility] Address: [address] [place] [address] Performed By: #### 1 9123-9, 81452-3 ####[facility] LABCLIA [id number] [place] [address] [place] Urea nitrogen [Mass/Vol] 11 mg/dL Normal 7-21 [facility] Comment on above: Order Comment: Speci men Type: BLOOD SPECIMENOrdering Facility: [facility] Address: [address] [place] [address] Performed By: #### 1 9123-9, 19924-5 ####[facility] LABCLIA [id number] [place] [address] [place] ANES POSTPROC EVALon 024 ANES POSTPROC EVAL Normal [facility] ANES PRE-OPon 08-31-2023 ANES PRE-OP Normal [facility] CASE MANAGEMon 08-31-2023 CASE MANAGEM Normal [facility] CBC panel Auto (Bld)on 08-30 Erythrocyte distribution width (RBC) [Ratio] 14.0 % Normal 11.5-15.0 [facility] Comment on above: Order Comment: Speci men Type: BLOOD SPECIMENOrdering Facility: [facility] Address: [address] [place] [address] Performed By: #### 5 8410-2 ####[facility] LABCLIA [id number] [place] [address] [place] Hematocrit (Bld) [Volume fraction] 31.3 % Low 36.0-46.0 [facility] Comment on above: Order Comment: Speci men Type: BLOOD SPECIMENOrdering Facility: [facility] Address: [address] [place] [address] Performed By: #### 5 8410-2 ####[facility] LABCLIA [id number] [place] [id number] [place] Hemoglobin (Bld) [Mass/Vol] 10.5 g/dL Low 11.5-15.5 [facility] Comment on above: Order Comment: Speci men Type: BLOOD SPECIMENOrdering Facility: [facility] Address: [address] [place] [address] Performed By: #### 5 8410-2 ####[facility] LABCLIA [id number] [place] [address] [place] MCH (RBC) [Entitic mass] 27.1 pg Normal 26.0-34.0 [facility] Comment on above: Order Comment: Speci men Type: BLOOD SPECIMENOrdering Facility: [facility] Address: [address] [place] [address] Performed By: #### 5 8410-2 ####[facility] [id number] [place] [address] [place] MCHC (RBC) [Mass/Vol] 33.5 g/dL Normal 30.5-36.0 [facility] Comment on above: Order Comment: Speci men Type: BLOOD SPECIMENOrdering Facility: [facility] Address: [address] [place] [address] Performed By: #### 5 8410-2 ####[facility] [id number] [place] [address] [place] MCV (RBC) [Entitic vol] 80.7 fL Normal 80.0-100.0 [facility] Comment on above: Order Comment: Speci men Type: BLOOD SPECIMENOrdering Facility: [facility] Address: [address] [place] [address] Performed By: #### 5 8410-2 ####[facility] [id number] [place] [address] [place] Nucleated RBC (Bld) [#/Vol] 10*3/uL Normal <0.01 [facility] Comment on above: Order Comment: Speci men Type: BLOOD SPECIMENOrdering Facility: [facility] Address: [address] [place] [address] Performed By: #### 5 8410-2 ####[facility] [id number] [place] [address] [place] Platelet mean volume (Bld) [Entitic vol] 9.5 fL Normal 9.0-12.7 [facility] Comment on above: Order Comment: Speci men Type: BLOOD SPECIMENOrdering Facility: [facility] Address: [address] [place] [address] Performed By: #### 5 8410-2 ####[facility] LABCLIA [id number] [place] [address] [place] Platelets (Bld) [#/Vol] 288 10*3/uL Normal 150-400 [facility] Comment on above: Order Comment: Speci men Type: BLOOD SPECIMENOrdering Facility: [facility] Address: [address] [place] [address] Performed By: #### 5 8410-2 ####[facility] LABCLIA [id number] [place] [address] [place] RBC (Bld) [#/Vol] 3.88 10*6/uL Low 3.90-5.20 [facility] Comment on above: Order Comment: Speci men Type: BLOOD SPECIMENOrdering Facility: [facility] Address: [address] [place] [address] Performed By: #### 5 8410-2 ####[facility] LABIA [id number] [place] [address] [place] WBC (Bld) [#/Vol] 5.48 10*3/uL Normal 3.70-11.00 [facility] Comment on above: Order Comment: Speci men Type: BLOOD SPECIMENOrdering Facility: [facility] Address: [address] [place] [address] Performed By: #### 5 8410-2 ####[facility] LABIA [id number] [place] [address] [place] Magnesium SerPl-mCncon 08-30 Magnesium [Mass/Vol] 1.9 mg/dL Normal 1.7-2.3 [facility] Comment on above: Order Comment: Speci men Type: BLOOD SPECIMENOrdering Facility: [facility] Address: [address] [place] [address] Performed By: #### 1 9123-9, 60405-3 ####[facility] LABCLIA [id number] [place] [address] [place] NURSING PROGon 08-31-2023 NURSING PROG Normal [facility] NURSING PROG Normal [facility] NUTRITIONon 08-31-2023 NUTRITION Normal [facility] PT panel Coag (PPP)on 2023 INR Coag (PPP) [Relative time] 1.0 {INR} Normal 0.9-1.3 [facility] Comment on above: Order Comment: Nicolle phipps Type: BLOOD SPECIMENOrdering Facility: [facility] Address: [address] [place] [address] Result Comment: Suze min K Antagonist (VKA) Therapeutic Range: INR 2 to 3 (Target INR of 2.5)Note: For patients treated with VKA drugs, such as warfarin, the [place] College [employer] Chest [employer]icians 2012 Guideline recommends a therapeutic INR range of 2 to 3 (target INR of 2.5). This recommendation includes high-risk patients with antiphospholipid syndrome with previous arterial or venous thromboembolism, current-generation mechanical or bioprosthetic aortic heart valve replacement.Note: Patients with mechanical aortic valve replacement and additional risk factors for thromboembolic events (atrial fibrillation, previous thromboembolism, LV dysfunction, hypercoagulable conditions) or an older generation mechanical AVR (i.e., ball in-Cage) or any mechanical MVR should have a INR therapeutic range of 2.5 to 3.5 (target INR of 3).Rober GH, et al. Chest 2012, 141:7S-47SNishimelsi RA, et al. JACC 2017, 70: 252-289 Performed By: #### 3 4528-0 ####[facility] LABCLIA [id number] [place] [address] [place] PT Coag (PPP) [Time] 10.9 s Normal 9.7-13.0 [facility] Comment on above: Order Comment: Speci men Type: BLOOD SPECIMENOrdering Facility: [facility] Address: [address] [place] [address] Performed By: #### 3 4528-0 ####[facility] LABCLIA [id number] [address] [address] [place] Renal function 2000 panelon 08-31-2023 Albumin [Mass/Vol] 3.4 g/dL Low 3.9-4.9 [facility] Comment on above: Order Comment: Speci men Type: BLOOD SPECIMENOrdering Facility: [facility] Address: [address] [place] [address] Performed By: #### 1 9123-9, 56833-0 ####[facility] LABCLIA [id number] [place] [address] [place] Anion gap [Moles/Vol] 11 mmol/L Normal 9-18 [facility] Comment on above: Order Comment: Speci men Type: BLOOD SPECIMENOrdering Facility: [facility] Address: [address] [place] [address] Performed By: #### 1 9123-9, 59260-2 ####[facility] LABCLIA [id number] [place] [address] [place] Calcium [Mass/Vol] 8.7 mg/dL Normal 8.5-10.2 [facility] Comment on above: Order Comment: Speci men Type: BLOOD SPECIMENOrdering Facility: [facility] Address: [address] [place] [address] Performed By: #### 1 9123-9, 19292-7 ####[facility] LABCLIA [id number] [place] [address] [place] Chloride [Moles/Vol] 103 mmol/L Normal 97-105 [facility] Comment on above: Order Comment: Speci men Type: BLOOD SPECIMENOrdering Facility: [facility] Address: [address] [place] [address] Performed By: #### 1 9123-9, 95121-8 ####[facility] LABCLIA [id number] [place] [address] [place] CO2 [Moles/Vol] 25 mmol/L Normal 22-30 [facility] Comment on above: Order Comment: Speci men Type: BLOOD SPECIMENOrdering Facility: [facility] Address: [address] [place] [address] Performed By: #### 1 9123-9, 12540-3 ####[facility] LABIA [id number] [place] [address] [place] Creatinine [Mass/Vol] 0.65 mg/dL Normal 0.58-0.96 [facility] Comment on above: Order Comment: Speci men Type: BLOOD SPECIMENOrdering Facility: [facility] Address: [address] [place] [address] Performed By: #### 1 9123-9, 96624-5 ####[facility] LABIA [id number] [place] [address] [place] Creatinine and Glomerular filtration rate.predicted panel (S/P/Bld) 100 mL/min/1.73m??? Normal >=60 [facility] Comment on above: Order Comment: Speci men Type: BLOOD SPECIMENOrdering Facility: [facility] Address: [address] [place] [address] Result Comment: Tuyet mated Glomerular Filtration Rate (eGFR) is calculated using the 2020 CKD-EPI creatinine equation. This equation utilizes serum creatinine, sex, and age as parameters. The creatinine assay has traceable calibration to isotope dilution-mass spectrometry. Refer to KDIGO guidelines for clinical interpretation. In patients with unstable renal function, e.g. those with acute kidney injury, the eGFR may not accurately reflect actual GFR. Performed By: #### 1 9123-9, 11041-7 ####[facility] LABIA [id number] [place] [address] [place] Glucose [Mass/Vol] 84 mg/dL Normal 74-99 [facility] Comment on above: Order Comment: Specgeorgia phipps Type: BLOOD SPECIMENOrdering Facility: [facility] Address: [address] [place] [address] Result Comment: The [place] Diabetes Association (ADA) provides guidance for cutoff values for fasting glucose and random glucose. The ADA defines fasting as no caloric intake for at least 8 hours. Fasting plasma glucose results between 100 to 125 mg/dL indicate increased risk for diabetes (prediabetes).Fasting plasma glucose results greater than or equal to 126 mg/dL meet the criteria for diagnosis of diabetes. In the absence of unequivocal hyperglycemia, results should be confirmed by repeat testing. In a patient with classic symptoms of hyperglycemia or hyperglycemic crisis, random plasma glucose results greater than or equal to 200 mg/dL meet the criteria for diagnosis of diabetes.Reference: Standards of Medical Care in Diabetes 2016, [place] Diabetes Association. Diabetes Care. 2016.39(Suppl 1). Performed By: #### 1 9123-9, 91979-5 ####[facility] LABCLIA [id number] [place] [address] [place] Phosphate [Mass/Vol] 3.6 mg/dL Normal 2.7-4.8 [facility] Comment on above: Order Comment: Nicolle phipps Type: BLOOD SPECIMENOrdering Facility: [facility] Address: [address] [place] [address] Performed By: #### 1 9123-9, 18699-4 ####[facility] LABCLIA [id number] [place] [address] [place] Potassium [Moles/Vol] 3.6 mmol/L Low 3.7-5.1 [facility] Comment on above: Order Comment: Nicolle phipps Type: BLOOD SPECIMENOrdering Facility: [facility] Address: [address] [place] [address] Performed By: #### 1 9123-9, 32010-6 ####[facility] LABCLIA [id number] [address] [address] [place] Sodium [Moles/Vol] 139 mmol/L Normal 136-144 [facility] Comment on above: Order Comment: Speci men Type: BLOOD SPECIMENOrdering Facility: [facility] Address: [address] [place] [address] Performed By: #### 1 9123-9, 43909-5 ####[facility] LABCLIA [id number] [place] [address] [place] Urea nitrogen [Mass/Vol] 7 mg/dL Normal 7-21 [facility] Comment on above: Order Comment: Speci men Type: BLOOD SPECIMENOrdering Facility: [facility] Address: [address] [place] [address] Performed By: #### 1 9123-9, 69029-5 ####[facility] LABCLIA [id number] [place] [address] [place] Upper GI endoscopyon 024 Upper GI endoscopy Normal [facility] XR ABDOMEN 1V SUPINEon 08-30 XR ABDOMEN 1V SUPINE [facility] 25(OH)D3 SerPl-mCncon 2023 25-hydroxyvitamin D3 [Mass/Vol] 19.0 ng/mL Low 31.0-80.0 [facility] Comment on above: Order Comment: Speci men Type: BLOOD SPECIMENOrdering Facility: [facility] Address: [address] [place] [address] Performed By: #### 1 989-3 ####[facility] LABCLIA [id number] [place] [id number] [place] CBC panel Auto (Bld)on 08-29 Erythrocyte distribution width (RBC) [Ratio] 14.1 % Normal 11.5-15.0 [facility] Comment on above: Order Comment: Speci men Type: BLOOD SPECIMENOrdering Facility: [facility] Address: [address] [place] [address] Performed By: #### 5 8410-2 ####[facility] LABCLIA [id number] [place] [address] [place] Hematocrit (Bld) [Volume fraction] 32.5 % Low 36.0-46.0 [facility] Comment on above: Order Comment: Speci men Type: BLOOD SPECIMENOrdering Facility: [facility] Address: [address] [place] [address] Performed By: #### 5 8410-2 ####[facility] LABIA [id number] [place] [address] [place] Hemoglobin (Bld) [Mass/Vol] 11.1 g/dL Low 11.5-15.5 [facility] Comment on above: Order Comment: Speci men Type: BLOOD SPECIMENOrdering Facility: [facility] Address: [address] [place] [address] Performed By: #### 5 8410-2 ####[facility] [id number] [place] [address] [place] MCH (RBC) [Entitic mass] 27.3 pg Normal 26.0-34.0 [facility] Comment on above: Order Comment: Speci men Type: BLOOD SPECIMENOrdering Facility: [facility] Address: [address] [place] [address] Performed By: #### 5 8410-2 ####[facility] [id number] [place] [address] [place] MCHC (RBC) [Mass/Vol] 34.2 g/dL Normal 30.5-36.0 [facility] Comment on above: Order Comment: Speci men Type: BLOOD SPECIMENOrdering Facility: [facility] Address: [address] [place] [address] Performed By: #### 5 8410-2 ####[facility] [id number] [place] [address] [place] MCV (RBC) [Entitic vol] 80.0 fL Normal 80.0-100.0 [facility] Comment on above: Order Comment: Speci men Type: BLOOD SPECIMENOrdering Facility: [facility] Address: [address] [place] [address] Performed By: #### 5 8410-2 ####[facility] LABCLIA [id number] [place] [address] [place] Nucleated RBC (Bld) [#/Vol] 10*3/uL Normal <0.01 [facility] Comment on above: Order Comment: Speci men Type: BLOOD SPECIMENOrdering Facility: [facility] Address: [address] [place] [address] Performed By: #### 5 8410-2 ####[facility] LABIA [id number] [place] [address] [place] Platelet mean volume (Bld) [Entitic vol] 9.4 fL Normal 9.0-12.7 [facility] Comment on above: Order Comment: Speci men Type: BLOOD SPECIMENOrdering Facility: [facility] Address: [address] [place] [address] Performed By: #### 5 8410-2 ####[facility] LABIA [id number] [place] [address] [place] Platelets (Bld) [#/Vol] 289 10*3/uL Normal 150-400 [facility] Comment on above: Order Comment: Speci men Type: BLOOD SPECIMENOrdering Facility: [facility] Address: [address] [place] [address] Performed By: #### 5 8410-2 ####[facility] LABIA [id number] [place] [address] [place] RBC (Bld) [#/Vol] 4.06 10*6/uL Normal 3.90-5.20 [facility] Comment on above: Order Comment: Speci men Type: BLOOD SPECIMENOrdering Facility: [facility] Address: [address] [place], [place] [address] [address] Performed By: #### 5 8410-2 ####[facility] LABCLIA [id number] [place] [address] [place] WBC (Bld) [#/Vol] 7.34 10*3/uL Normal 3.70-11.00 [facility] Comment on above: Order Comment: Speci men Type: BLOOD SPECIMENOrdering Facility: [facility] Address: [address] [place] [address] Performed By: #### 5 8410-2 ####[facility] LABCLIA [id number] [place] [address] [place] Coding Queryon 08-30-2023 Coding Query Normal [facility] Magnesium SerPl-mCncon 08-29 Magnesium [Mass/Vol] 2.2 mg/dL Normal 1.7-2.3 [facility] Comment on above: Order Comment: Speci men Type: BLOOD SPECIMENOrdering Facility: [facility] Address: [address] [place] [address] Performed By: #### 1 9123-9, 11593-8 ####[facility] LABCLIA [id number] [place] [address] [place] NURSING PROGon 08-30-2023 NURSING PROG Normal [facility] Renal function 2000 panelon 08-30-2023 Albumin [Mass/Vol] 3.6 g/dL Low 3.9-4.9 [facility] Comment on above: Order Comment: Speci men Type: BLOOD SPECIMENOrdering Facility: [facility] Address: [facility] [place] [address] Performed By: #### 1 9123-9, 85744-2 ####[facility] LABCLIA [id number] [place] [address] [place] Anion gap [Moles/Vol] 10 mmol/L Normal 9-18 [facility] Comment on above: Order Comment: Speci men Type: BLOOD SPECIMENOrdering Facility: [facility] Address: [address] [place] [address] Performed By: #### 1 9123-9, 68330-2 ####[facility] LABCLIA [id number] [address] [address] [place] Calcium [Mass/Vol] 8.7 mg/dL Normal 8.5-10.2 [facility] Comment on above: Order Comment: Speci men Type: BLOOD SPECIMENOrdering Facility: [facility] Address: [address] [place] [address] Result Comment: Resu lt rechecked. Performed By: #### 1 9123-9, 05677-3 ####[facility] LABCLIA [id number] [place] [address] [place] Chloride [Moles/Vol] 102 mmol/L Normal 97-105 [facility] Comment on above: Order Comment: Speci men Type: BLOOD SPECIMENOrdering Facility: [facility] Address: [address] [place] [address] Performed By: #### 1 9123-9, 17988-6 ####[facility] LABCLIA [id number] [place] [address] [place] CO2 [Moles/Vol] 27 mmol/L Normal 22-30 [facility] Comment on above: Order Comment: Speci men Type: BLOOD SPECIMENOrdering Facility: [facility] Address: [address] [place] [address] Performed By: #### 1 9123-9, 50899-2 ####[facility] LABCLIA [id number] [place] [address] [place] Creatinine [Mass/Vol] 0.62 mg/dL Normal 0.58-0.96 [facility] Comment on above: Order Comment: Speci men Type: BLOOD SPECIMENOrdering Facility: [facility] Address: [address] [place] [address] Performed By: #### 1 9123-9, 57921-4 ####[facility] LABIA [id number] [place] [address] [place] Creatinine and Glomerular filtration rate.predicted panel (S/P/Bld) 101 mL/min/1.73m??? Normal >=60 [facility] Comment on above: Order Comment: Nicolle phipps Type: BLOOD SPECIMENOrdering Facility: [facility] Address: [address] [place] [address] Result Comment: Tuyet mated Glomerular Filtration Rate (eGFR) is calculated using the 2020 CKD-EPI creatinine equation. This equation utilizes serum creatinine, sex, and age as parameters. The creatinine assay has traceable calibration to isotope dilution-mass spectrometry. Refer to KDIGO guidelines for clinical interpretation. In patients with unstable renal function, e.g. those with acute kidney injury, the eGFR may not accurately reflect actual GFR. Performed By: #### 1 9123-9, 47230-9 ####[facility] LABIA [id number] [place] [address] [place] Glucose [Mass/Vol] 84 mg/dL Normal 74-99 [facility] Comment on above: Order Comment: Nicolle phipps Type: BLOOD SPECIMENOrdering Facility: [facility] Address: [address] [place] [address] Result Comment: The [place] Diabetes Association (ADA) provides guidance for cutoff values for fasting glucose and random glucose. The ADA defines fasting as no caloric intake for at least 8 hours. Fasting plasma glucose results between 100 to 125 mg/dL indicate increased risk for diabetes (prediabetes).Fasting plasma glucose results greater than or equal to 126 mg/dL meet the criteria for diagnosis of diabetes. In the absence of unequivocal hyperglycemia, results should be confirmed by repeat testing. In a patient with classic symptoms of hyperglycemia or hyperglycemic crisis, random plasma glucose results greater than or equal to 200 mg/dL meet the criteria for diagnosis of diabetes.Reference: Standards of Medical Care in Diabetes 2016, [place] Diabetes Association. Diabetes Care. 2016.39(Suppl 1). Performed By: #### 1 9123-9, 32774-2 ####[facility] LABCLIA [id number] [address] [address] [place] Phosphate [Mass/Vol] 3.5 mg/dL Normal 2.7-4.8 [facility] Comment on above: Order Comment: Speci men Type: BLOOD SPECIMENOrdering Facility: [facility] Address: [address] [place] [address] Performed By: #### 1 9123-9, ####[facility] LABCLIA [id number] [place] [address] [place] Potassium [Moles/Vol] 3.9 mmol/L Normal 3.7-5.1 [facility] Comment on above: Order Comment: Speci men Type: BLOOD SPECIMENOrdering Facility: [facility] Address: [address] [place] [address] Performed By: #### 1 9123-9, ####[facility] LABIA [id number] [place] [address] [place] Sodium [Moles/Vol] 139 mmol/L Normal 136-144 [facility] Comment on above: Order Comment: Speci men Type: BLOOD SPECIMENOrdering Facility: [facility] Address: [address] [place] [address] Performed By: #### 1 9123-9, ####[facility] LABIA [id number] [place] [address] [place] Urea nitrogen [Mass/Vol] 9 mg/dL Normal 7-21 [facility] Comment on above: Order Comment: Speci men Type: BLOOD SPECIMENOrdering Facility: [facility] Address: [address] [place] [address] Performed By: #### 1 9123-9, 54368-7 ####[facility] LABIA [id number] [place] [address] [place] CBC panel Auto (Bld)on 08-28 Erythrocyte distribution width (RBC) [Ratio] 14.0 % Normal 11.5-15.0 [facility] Comment on above: Order Comment: Speci men Type: BLOOD SPECIMENOrdering Facility: [facility] Address: [address] [place] [address] Performed By: #### 5 8410-2 ####[facility] LABCLIA [id number] [place] [address] [place] Hematocrit (Bld) [Volume fraction] 28.1 % Low 36.0-46.0 [facility] Comment on above: Order Comment: Speci men Type: BLOOD SPECIMENOrdering Facility: [facility] Address: [address] [place] [address] Performed By: #### 5 8410-2 ####[facility] LABCLIA [id number] [address] [place] Hemoglobin (Bld) [Mass/Vol] 9.5 g/dL Low 11.5-15.5 [facility] Comment on above: Order Comment: Speci men Type: BLOOD SPECIMENOrdering Facility: [facility] Address: [address] [place] [address] Performed By: #### 5 8410-2 ####[facility] LABIA [id number] [place] [address] [place] MCH (RBC) [Entitic mass] 26.9 pg Normal 26.0-34.0 [facility] Comment on above: Order Comment: Speci men Type: BLOOD SPECIMENOrdering Facility: [facility] Address: [address] [place] [address] Performed By: #### 5 8410-2 ####[facility] LABCLIA [id number] [place] [address] [place] MCHC (RBC) [Mass/Vol] 33.8 g/dL Normal 30.5-36.0 [facility] Comment on above: Order Comment: Speci men Type: BLOOD SPECIMENOrdering Facility: [facility] Address: [address] [place] [address] Performed By: #### 5 8410-2 ####[facility] LABIA [id number] [place] [address] [place] MCV (RBC) [Entitic vol] 79.6 fL Low 80.0-100.0 [facility] Comment on above: Order Comment: Speci men Type: BLOOD SPECIMENOrdering Facility: [facility] Address: [address] [place] [address] Performed By: #### 5 8410-2 ####[facility] [id number] [place] [address] [place] Nucleated RBC (Bld) [#/Vol] 10*3/uL Normal <0.01 [facility] Comment on above: Order Comment: Speci men Type: BLOOD SPECIMENOrdering Facility: [facility] Address: [address] [place] [address] Performed By: #### 5 8410-2 ####[facility] [id number] [place] [address] [place] Platelet mean volume (Bld) [Entitic vol] 9.8 fL Normal 9.0-12.7 [facility] Comment on above: Order Comment: Speci men Type: BLOOD SPECIMENOrdering Facility: [facility] Address: [address] [place] [address] Performed By: #### 5 8410-2 ####[facility] LABIA [id number] [place] [address] [place] Platelets (Bld) [#/Vol] 234 10*3/uL Normal 150-400 [facility] Comment on above: Order Comment: Speci men Type: BLOOD SPECIMENOrdering Facility: [facility] Address: [address] [place] [address] Performed By: #### 5 8410-2 ####[facility] LABCLIA [id number] [place] [address] [place] RBC (Bld) [#/Vol] 3.53 10*6/uL Low 3.90-5.20 [facility] Comment on above: Order Comment: Speci men Type: BLOOD SPECIMENOrdering Facility: [facility] Address: [address] [place] [address] Performed By: #### 5 8410-2 ####[facility] LABCLIA [id number] [place] [address] [place] WBC (Bld) [#/Vol] 6.29 10*3/uL Normal 3.70-11.00 [facility] Comment on above: Order Comment: Speci men Type: BLOOD SPECIMENOrdering Facility: [facility] Address: [address] [place] [address] Performed By: #### 5 8410-2 ####[facility] LABIA [id number] [place] [address] [place] CRP SerPl-ncon 08-29-2023 CRP [Mass/Vol] 1.8 mg/dL High <0.9 [facility] Comment on above: Order Comment: Speci men Type: BLOOD SPECIMENOrdering Facility: [facility] Address: [address] [place] [address] Performed By: #### 1 9123-9, 49960-9, 10746-3, 12657-7, 2132-9, 2276-4, 1988- ####[facility] LABIA [id number] [place] [address] [place] ECG COMPLETEon 08-29-2023 ECG COMPLETE Normal [facility] Ferritin SerPl-mCncon 2023 Ferritin [Mass/Vol] 211.0 ng/mL High 14.7-205.1 [facility] Comment on above: Order Comment: Speci men Type: BLOOD SPECIMENOrdering Facility: [facility] Address: [address] [place] [address] Performed By: #### 1 9123-9, 53714-2, 90551-6, 20711-1, 9, 2275-08, 1987-09 ####[facility] LABCLIA [id number] [place] [address] [place] Iron and Iron binding capaci ty panelon 08-29-2023 Iron [Mass/Vol] 39 ug/dL Low 41-186 [facility] Comment on above: Order Comment: Speci men Type: BLOOD SPECIMENOrdering Facility: [facility] Address: [address] [place] [address] Performed By: #### 1 9123-9, 70369-6, 96568-4, 25024-1, 9, 2275-08, 1987-09 ####[facility] LABCLIA [id number] [place] [address] [place] Iron binding capacity [Mass/Vol] 192 ug/dL Low 232-386 [facility] Comment on above: Order Comment: Speci men Type: BLOOD SPECIMENOrdering Facility: [facility] Address: [address] [place] [address] Performed By: #### 1 9123-9, 99731-0, 71687-8, 07382-0, 9, 2275-08, 1987-09 ####[facility] LABCLIA [id number] [place] [address] [place] Iron/TIBC [Molar ratio] 20.3 % Normal 15.0-57.0 [facility] Comment on above: Order Comment: Speci men Type: BLOOD SPECIMENOrdering Facility: [facility] Address: [address] [place] [address] Performed By: #### 1 9123-9, 84690-7, 81475-2, 11760-9, 9, 2275-08, 1987-09 ####[facility] LABIA [id number] [place] [address] [place] Magnesium SerPl-mCncon 08-28 Magnesium [Mass/Vol] 1.6 mg/dL Low 1.7-2.3 [facility] Comment on above: Order Comment: Speci men Type: BLOOD SPECIMENOrdering Facility: [facility] Address: [address] [place] [address] Performed By: #### 1 9123-9, 17154-7, 98400-3, 01404-0, 9, 2275-08, 1987-09 ####[facility] [id number] [place] [address] [place] NURSING PROGon 08-29-2023 NURSING PROG Normal [facility] Procalcitonin SerPl-mCncon 0 08-29-2023 Procalcitonin [Mass/Vol] ng/mL Normal <0.09 [facility] Comment on above: Order Comment: Speci men Type: BLOOD SPECIMENOrdering Facility: [facility] Address: [address] [place] [address] Result Comment: For a guided interpretation of test results, please visit the Change in Procalcitonin Calculator, [email or web address]. Performed By: #### 1 9123-9, 64995-7, 06372-1, 22641-9, 9, 2275-08, 1987-09 ####[facility] LABIA [id number] [place] [id number] [place] Renal function 2000 panelon 08-29-2023 Albumin [Mass/Vol] 2.8 g/dL Low 3.9-4.9 [facility] Comment on above: Order Comment: Speci men Type: BLOOD SPECIMENOrdering Facility: [facility] Address: [address] [place] [address] Performed By: #### 1 9123-9, 74506-6, 73151-2, 33480-4, 2131-9, 2275-08, 1987-09 ####[facility] LABCLIA [id number] [address] [address] [place] Anion gap [Moles/Vol] 8 mmol/L Low 9-18 [facility] Comment on above: Order Comment: Speci men Type: BLOOD SPECIMENOrdering Facility: [facility] Address: [address] [place] [address] Performed By: #### 1 9123-9, 60083-8, 61353-4, 04352-8, 9, 2275-08, 1987-09 ####[facility] LABCLIA [id number] [place] [address] [place] Calcium [Mass/Vol] 7.4 mg/dL Low 8.5-10.2 [facility] Comment on above: Order Comment: Speci men Type: BLOOD SPECIMENOrdering Facility: [facility] Address: [address] [place] [address] Performed By: #### 1 9123-9, 43378-8, 99316-0, 75883-8, 2131-9, 2275-08, 1987-09 ####[facility] LABCLIA [id number] [place] [address] [place] Chloride [Moles/Vol] 110 mmol/L High 97-105 [facility] Comment on above: Order Comment: Speci men Type: BLOOD SPECIMENOrdering Facility: [facility] Address: [address] [place], [place] [address] Performed By: #### 1 9123-9, 42644-5, 59740-1, 75981-1, 9, 2275-08, 1987-09 ####[facility] LABCLIA [id number] [address] [address] [place] CO2 [Moles/Vol] 23 mmol/L Normal 22-30 [facility] Comment on above: Order Comment: Speci men Type: BLOOD SPECIMENOrdering Facility: [facility] Address: [address] [place] [address] Performed By: #### 1 9123-9, 28397-8, 02686-0, 01455-2, 9, 2275-08, 1987-09 ####[facility] LABCLIA [id number] [place] [address] [place] Creatinine [Mass/Vol] 0.59 mg/dL Normal 0.58-0.96 [facility] Comment on above: Order Comment: Speci men Type: BLOOD SPECIMENOrdering Facility: [facility] Address: [address] [place] [address] Performed By: #### 1 9123-9, 50875-1, 37828-8, 64209-1, 2132-01, 2275-08, 1987-09 ####[facility] LABCLIA [id number] [place] [address] [place] Creatinine and Glomerular filtration rate.predicted panel (S/P/Bld) 103 mL/min/1.73m??? Normal >=60 [facility] Comment on above: Order Comment: Nicolle phipps Type: BLOOD SPECIMENOrdering Facility: [facility] Address: [address] [place] [address] Result Comment: Tuyet mated Glomerular Filtration Rate (eGFR) is calculated using the 2020 CKD-EPI creatinine equation. This equation utilizes serum creatinine, sex, and age as parameters. The creatinine assay has traceable calibration to isotope dilution-mass spectrometry. Refer to KDIGO guidelines for clinical interpretation. In patients with unstable renal function, e.g. those with acute kidney injury, the eGFR may not accurately reflect actual GFR. Performed By: #### 1 9123-9, 36387-1, 01551-7, 79349-0, 9, 2275-08, 1987-09 ####[facility] LABCLIA [id number] [place] [address] [place] Glucose [Mass/Vol] 492 mg/dL High 74-99 [facility] Comment on above: Order Comment: Speci men Type: BLOOD SPECIMENOrdering Facility: [facility] Address: [address] [place], [place] [address] Result Comment: The Citizen [place] Diabetes Association (ADA) provides guidance for cutoff values for fasting glucose and random glucose. The ADA defines fasting as no caloric intake for at least 8 hours. Fasting plasma glucose results between 100 to 125 mg/dL indicate increased risk for diabetes (prediabetes).Fasting plasma glucose results greater than or equal to 126 mg/dL meet the criteria for diagnosis of diabetes. In the absence of unequivocal hyperglycemia, results should be confirmed by repeat testing. In a patient with classic symptoms of hyperglycemia or hyperglycemic crisis, random plasma glucose results greater than or equal to 200 mg/dL meet the criteria for diagnosis of diabetes.Reference: Standards of Medical Care in Diabetes 2016, [place] Diabetes Association. Diabetes Care. 2016.39(Suppl 1). Performed By: #### 1 9123-9, 85124-8, 51786-8, 21805-9, 2132-01, 2275-08, 1987-09 ####[facility] LABIA [id number] [address] [address] [place] Phosphate [Mass/Vol] 2.9 mg/dL Normal 2.7-4.8 [facility] Comment on above: Order Comment: Nicolle phipps Type: BLOOD SPECIMENOrdering Facility: [facility] Address: [address] [place] [address] Performed By: #### 1 9123-9, 42021-4, 17281-2, 04721-4, 9, 2275-08, 1987-09 ####[facility] [id number] [address] [address] [place] Potassium [Moles/Vol] 3.1 mmol/L Low 3.7-5.1 [facility] Comment on above: Order Comment: Nicolle phipps Type: BLOOD SPECIMENOrdering Facility: [facility] Address: [address] [place], [place] [address] Performed By: #### 1 9123-9, 32555-2, 23701-7, 28966-9, 2131-9, 2275-, 1987-09 ####[facility] LABCLIA [id number] [address] [address] [place] Sodium [Moles/Vol] 141 mmol/L Normal 136-144 [facility] Comment on above: Order Comment: Speci men Type: BLOOD SPECIMENOrdering Facility: [facility] Address: [address] [place] [address] Performed By: #### 1 9123-9, 67866-7, 47135-3, 03490-2, 9, 2275-08, 1987-09 ####[facility] LABCLIA [id number] [place] [address] [place] Urea nitrogen [Mass/Vol] 11 mg/dL Normal 7-21 [facility] Comment on above: Order Comment: Speci men Type: BLOOD SPECIMENOrdering Facility: [facility] Address: [address] [place] [address] Performed By: #### 1 9123-9, 84449-0, 10744-4, 40805-8, 9, 2275-08, 1987-09 ####[facility] LABCLIA [id number] [place] [address] [place] Vit B12 [facility] 024 Cobalamin (Vitamin B12) [Mass/Vol] 1259 pg/mL High 232-1245 [facility] Comment on above: Order Comment: Speci men Type: BLOOD SPECIMENOrdering Facility: [facility] Address: [address] [place] [address] Performed By: #### 1 9123-9, 00936-1, 42039-6, 48407-3, 2131-9, 2275-08, 1987-09 ####[facility] LABCLIA [id number] [address] [address] [place] Billing Authorizationson Billing Authorizations [phone] [id number]#1.00OTGTIFF Normal [facility] CASE MGT INIT ASSESon 2023 CASE MGT INIT ASSES Normal [facility] CBC W Auto Differential pane l (Bld)on 08-28-2023 Basophils (Bld) [#/Vol] 0.03 10*3/uL Normal <0.11 [facility] Comment on above: Order Comment: Speci men Type: BLOOD SPECIMENOrdering Facility: [facility] Address: [address] [place] [address] Performed By: #### 5 7021-8 ####[facility] LABCLIA [id number] [place] [address] [place] Basophils/100 WBC (Bld) 0.4 % Normal [facility] Comment on above: Order Comment: Speci men Type: BLOOD SPECIMENOrdering Facility: [facility] Address: [address] [place] [address] Performed By: #### 5 7021-8 ####[facility] LABCLIA [id number] [place] [address] [place] Differential cell count method Nom (Bld) Auto Normal [facility] Comment on above: Order Comment: Speci men Type: BLOOD SPECIMENOrdering Facility: [facility] Address: [address] [place] [address] Performed By: #### 5 7021-8 ####[facility] LABCLIA [id number] [place] [address] [place] Eosinophils (Bld) [#/Vol] 0.29 10*3/uL Normal <0.46 [facility] Comment on above: Order Comment: Speci men Type: BLOOD SPECIMENOrdering Facility: [facility] Address: [address] [place] [address] Performed By: #### 5 7021-8 ####[facility] LABCLIA [id number] [place] [address] [place] Eosinophils/100 WBC (Bld) 3.4 % Normal [facility] Comment on above: Order Comment: Speci men Type: BLOOD SPECIMENOrdering Facility: [facility] Address: [address] [place] [address] Performed By: #### 5 7021-8 ####[facility] LABCLIA [id number] [place] [address] [place] Erythrocyte distribution width (RBC) [Ratio] 13.7 % Normal 11.5-15.0 [facility] Comment on above: Order Comment: Speci men Type: BLOOD SPECIMENOrdering Facility: [facility] Address: [address] [place] [address] Performed By: #### 5 7021-8 ####[facility] LABCLIA [id number] [place] [address] [place] Hematocrit (Bld) [Volume fraction] 32.9 % Low 36.0-46.0 [facility] Comment on above: Order Comment: Speci men Type: BLOOD SPECIMENOrdering Facility: [facility] Address: [address] [place] [address] Performed By: #### 5 7021-8 ####[facility] LABIA [id number] [place] [address] [place] Hemoglobin (Bld) [Mass/Vol] 11.2 g/dL Low 11.5-15.5 [facility] Comment on above: Order Comment: Speci men Type: BLOOD SPECIMENOrdering Facility: [facility] Address: [address] [place] [address] Performed By: #### 5 7021-8 ####[facility] LABCLIA [id number] [place] [address] [place] Immature granulocytes (Bld) [#/Vol] 0.07 10*3/uL Normal <0.10 [facility] Comment on above: Order Comment: Speci men Type: BLOOD SPECIMENOrdering Facility: [facility] Address: [address] [place] [address] Performed By: #### 5 7021-8 ####[facility] LABCLIA [id number] [place] [address] [place] Immature granulocytes/100 WBC (Bld) 0.8 % Normal [facility] Comment on above: Order Comment: Speci men Type: BLOOD SPECIMENOrdering Facility: [facility] Address: [address] [place] [address] Performed By: #### 5 7021-8 ####[facility] LABCLIA [id number] [place] [address] [place] Lymphocytes (Bld) [#/Vol] 0.82 10*3/uL Low 1.00-4.00 [facility] Comment on above: Order Comment: Speci men Type: BLOOD SPECIMENOrdering Facility: [facility] Address: [address] [place] [address] Performed By: #### 5 7021-8 ####[facility] LABCLIA [id number] [place] [address] [place] Lymphocytes/100 WBC (Bld) 9.6 % Normal [facility] Comment on above: Order Comment: Speci men Type: BLOOD SPECIMENOrdering Facility: [facility] Address: [address] [place] [address] Performed By: #### 5 7021-8 ####[facility] LABCLIA [id number] [place] [address] [place] MCH (RBC) [Entitic mass] 27.2 pg Normal 26.0-34.0 [facility] Comment on above: Order Comment: Speci men Type: BLOOD SPECIMENOrdering Facility: [facility] Address: [address] [place] [address] Performed By: #### 5 7021-8 ####[facility] LABCLIA [id number] [place] [address] [place] MCHC (RBC) [Mass/Vol] 34.0 g/dL Normal 30.5-36.0 [facility] Comment on above: Order Comment: Speci men Type: BLOOD SPECIMENOrdering Facility: [facility] Address: [address] [place] [address] Performed By: #### 5 7021-8 ####[facility] LABCLIA [id number] [place] [address] [place] MCV (RBC) [Entitic vol] 79.9 fL Low 80.0-100.0 [facility] Comment on above: Order Comment: Speci men Type: BLOOD SPECIMENOrdering Facility: [facility] Address: [address] [place] [address] Performed By: #### 5 7021-8 ####[facility] LABIA [id number] [place] [address] [place] Monocytes (Bld) [#/Vol] 0.73 10*3/uL Normal <0.87 [facility] Comment on above: Order Comment: Speci men Type: BLOOD SPECIMENOrdering Facility: [facility] Address: [address] [place] [address] Performed By: #### 5 7021-8 ####[facility] LABIA [id number] [place] [address] [place] Monocytes/100 WBC (Bld) 8.5 % Normal [facility] Comment on above: Order Comment: Speci men Type: BLOOD SPECIMENOrdering Facility: [facility] Address: [address] [place] [address] Performed By: #### 5 7021-8 ####[facility] LABCLIA [id number] [place] [address] [place] Neutrophils (Bld) [#/Vol] 6.60 10*3/uL Normal 1.45-7.50 [facility] Comment on above: Order Comment: Speci men Type: BLOOD SPECIMENOrdering Facility: [facility] Address: [address] [place] [address] Performed By: #### 5 7021-8 ####[facility] LABCLIA [id number] [place] [address] [place] Neutrophils/100 WBC (Bld) 77.3 % Normal [facility] Comment on above: Order Comment: Speci men Type: BLOOD SPECIMENOrdering Facility: [facility] Address: [address] [place] [address] Performed By: #### 5 7021-8 ####[facility] LABIA [id number] [place] [address] [place] Nucleated RBC (Bld) [#/Vol] 10*3/uL Normal <0.01 [facility] Comment on above: Order Comment: Speci men Type: BLOOD SPECIMENOrdering Facility: [facility] Address: [address] [place] [address] Performed By: #### 5 7021-8 ####[facility] LABIA [id number] [place] [address] [place] Nucleated RBC/100 WBC (Bld) [Ratio] 0.0 /100 WBC Normal [facility] Comment on above: Order Comment: Speci men Type: BLOOD SPECIMENOrdering Facility: [facility] Address: [address] [place] [address] Performed By: #### 5 7021-8 ####[facility] LABIA [id number] [place] [address] [place] Platelet mean volume (Bld) [Entitic vol] 9.8 fL Normal 9.0-12.7 [facility] Comment on above: Order Comment: Speci men Type: BLOOD SPECIMENOrdering Facility: [facility] Address: [address] [place] [address] Performed By: #### 5 7021-8 ####[facility] LABIA [id number] [address] [address] [place] Platelets (Bld) [#/Vol] 242 10*3/uL Normal 150-400 [facility] Comment on above: Order Comment: Speci men Type: BLOOD SPECIMENOrdering Facility: [facility] Address: [address] [place] [address] Performed By: #### 5 7021-8 ####[facility] LABIA [id number] [place] [address] [place] RBC (Bld) [#/Vol] 4.12 10*6/uL Normal 3.90-5.20 [facility] Comment on above: Order Comment: Speci men Type: BLOOD SPECIMENOrdering Facility: [facility] Address: [address] [place] [address] Performed By: #### 5 7021-8 ####[facility] [id number] [place] [address] [place] WBC (Bld) [#/Vol] 8.54 10*3/uL Normal 3.70-11.00 [facility] Comment on above: Order Comment: Speci men Type: BLOOD SPECIMENOrdering Facility: [facility] Address: [address] [place] [address] Performed By: #### 5 7021-8 ####[facility] [id number] [place] [id number] [place] Coding Summaryon 08-28-2023 Coding Summary Normal [facility] metabolic 2000 panelon 08-28-2023 Albumin [Mass/Vol] 3.4 g/dL Low 3.9-4.9 [facility] Comment on above: Order Comment: Speci men Type: BLOOD SPECIMENOrdering Facility: [facility] Address: [address] [place] [address] Performed By: #### 2 4323-8, 3023-7, 21086-0, 3015-3 ####[facility] LABCLIA [id number] [address] [address] [place] ALP [Catalytic activity/Vol] 107 U/L Normal 34-123 [facility] Comment on above: Order Comment: Speci men Type: BLOOD SPECIMENOrdering Facility: [facility] Address: [address] [place] [address] Performed By: #### 2 4323-8, 3023-7, , 3015-3 ####[facility] LABCLIA [id number] [place] [address] [place] ALT [Catalytic activity/Vol] 18 U/L Normal 7-38 [facility] Comment on above: Order Comment: Speci men Type: BLOOD SPECIMENOrdering Facility: [facility] Address: [address] [place] [address] Performed By: #### 2 4323-8, 3023-7, , 3015-3 ####[facility] LABIA [id number] [place] [address] [place] Anion gap [Moles/Vol] 11 mmol/L Normal 9-18 [facility] Comment on above: Order Comment: Speci men Type: BLOOD SPECIMENOrdering Facility: [facility] Address: [address] [place] [address] Performed By: #### 2 4323-8, 3023-7, , 3015-3 ####[facility] LABCLIA [id number] [address] [address] [place] AST [Catalytic activity/Vol] 16 U/L Normal 13-35 [facility] Comment on above: Order Comment: Speci men Type: BLOOD SPECIMENOrdering Facility: [facility] Address: [address] [place] [address] Performed By: #### 2 4323-8, 3023-7, 72213-3, 3015-3 ####[facility] LABCLIA [id number] [address] [address] [place] Bilirubin [Mass/Vol] 0.2 mg/dL Normal 0.2-1.3 [facility] Comment on above: Order Comment: Speci men Type: BLOOD SPECIMENOrdering Facility: [facility] Address: [address] [place] [address] Performed By: #### 2 4323-8, 302-7, , 3015-3 ####[facility] LABCLIA [id number] [address] [address] [place] Calcium [Mass/Vol] 8.6 mg/dL Normal 8.5-10.2 [facility] Comment on above: Order Comment: Speci men Type: BLOOD SPECIMENOrdering Facility: [facility] Address: [address] [place] [address] Performed By: #### 2 4323-8, 3023-7, , 3 ####[facility] LABIA [id number] [address] [address] [place] Chloride [Moles/Vol] 101 mmol/L Normal 97-105 [facility] Comment on above: Order Comment: Speci men Type: BLOOD SPECIMENOrdering Facility: [facility] Address: [address] [place] [address] Performed By: #### 2 4323-8, 3023-7, , 3 ####[facility] LABCLIA [id number] [address] [address] [place] CO2 [Moles/Vol] 24 mmol/L Normal 22-30 [facility] Comment on above: Order Comment: Speci men Type: BLOOD SPECIMENOrdering Facility: [facility] Address: [address] [place] [address] Performed By: #### 2 4323-8, 3023-7, , 3015-07 ####[facility] LABIA [id number] [address] [address] [place] Creatinine [Mass/Vol] 0.64 mg/dL Normal 0.58-0.96 [facility] Comment on above: Order Comment: Nicolle phipps Type: BLOOD SPECIMENOrdering Facility: [facility] Address: [address] [place] [address] Performed By: #### 2 4323-8, 3024-7, , 3015-07 ####[facility] LABIA [id number] [place] [address] [place] Creatinine and Glomerular filtration rate.predicted panel (S/P/Bld) 101 mL/min/1.73m??? Normal >=60 [facility] Comment on above: Order Comment: Nicolle phipps Type: BLOOD SPECIMENOrdering Facility: [facility] Address: [address] [place] [address] Result Comment: Tuyet mated Glomerular Filtration Rate (eGFR) is calculated using the 2020 CKD-EPI creatinine equation. This equation utilizes serum creatinine, sex, and age as parameters. The creatinine assay has traceable calibration to isotope dilution-mass spectrometry. Refer to KDIGO guidelines for clinical interpretation. In patients with unstable renal function, e.g. those with acute kidney injury, the eGFR may not accurately reflect actual GFR. Performed By: #### 2 4323-8, 4-7, , 3015-07 ####[facility] LABIA [id number] [address] [address] [place] Glucose [Mass/Vol] 89 mg/dL Normal 74-99 [facility] Comment on above: Order Comment: Nicolle phipps Type: BLOOD SPECIMENOrdering Facility: [facility] Address: [address] [place] [address] Result Comment: The [place] Diabetes Association (ADA) provides guidance for cutoff values for fasting glucose and random glucose. The ADA defines fasting as no caloric intake for at least 8 hours. Fasting plasma glucose results between 100 to 125 mg/dL indicate increased risk for diabetes (prediabetes).Fasting plasma glucose results greater than or equal to 126 mg/dL meet the criteria for diagnosis of diabetes. In the absence of unequivocal hyperglycemia, results should be confirmed by repeat testing. In a patient with classic symptoms of hyperglycemia or hyperglycemic crisis, random plasma glucose results greater than or equal to 200 mg/dL meet the criteria for diagnosis of diabetes.Reference: Standards of Medical Care in Diabetes 2016, [place] Diabetes Association. Diabetes Care. 2016.39(Suppl 1). Performed By: #### 2 4323-8, 3024-7, , 3015-3 ####[facility] LABIA [id number] [place] [id number] [place] Potassium [Moles/Vol] 3.7 mmol/L Normal 3.7-5.1 [facility] Comment on above: Order Comment: Speci men Type: BLOOD SPECIMENOrdering Facility: [facility] Address: [address] [place] [address] Performed By: #### 2 4323-8, 3024-7, , 3015-3 ####[facility] [id number] [place] [id number] [place] Protein [Mass/Vol] 6.2 g/dL Low 6.3-8.0 [facility] Comment on above: Order Comment: Speci moise Type: BLOOD SPECIMENOrdering Facility: [facility] Address: [address] [place], [place] [address] Performed By: #### 2 4323-8, 3024-7, , 6-3 ####[facility] LABNORT[facility] [id number] [place] [address] [place] Sodium [Moles/Vol] 136 mmol/L Normal 136-144 [facility] Comment on above: Order Comment: Speci men Type: BLOOD SPECIMENOrdering Facility: [facility] Address: [address] [place] [address] Performed By: #### 2 4323-8, 3023-7, 98296-1, 3 ####[facility] LABIA [id number] [address] [address] [place] Urea nitrogen [Mass/Vol] 27 mg/dL High 7-21 [facility] Comment on above: Order Comment: Speci men Type: BLOOD SPECIMENOrdering Facility: [facility] Address: [address] [place] [address] Performed By: #### 2 4323-8, 3023-7, , 3015-07 ####[facility] [id number] [place] [id number] [place] Consent Formson 08-28-2023 Consent Forms [id number]#1.00[facility] [id number]#1.00[facility] Implantable Deviceson 2023 Implantable Devices [id number]#1.00[facility] Insuranceon 08-28-2023 Insurance [id number]#1.00[facility] Magnesium SerPl-mCncon 08-27 Magnesium [Mass/Vol] 2.0 mg/dL Normal 1.7-2.3 [facility] Comment on above: Order Comment: Speci men Type: BLOOD SPECIMENOrdering Facility: [facility] Address: [address] [place] [address] Performed By: #### 2 4323-8, 7, , 3015-07 ####[facility] LABIA [id number] [address] [address] [place] NURSING PROGon 08-28-2023 NURSING PROG Normal [facility] NUTRITIONon 08-28-2023 NUTRITION Normal [facility] Progress Note - Nurseon 04-0 Progress Note - Nurse [id number]#[facility] Free SerPl-mCncon 024 Free T4 [Mass/Vol] 1.3 ng/dL Normal 0.9-1.7 [facility] Comment on above: Order Comment: Speci men Type: BLOOD SPECIMENOrdering Facility: [facility] Address: [address] [place] [address] Performed By: #### 2 4323-8, 3024-7, 68412-4, 6-3 ####[facility] LABCLIA [id number] [place] [address] [place] TSH SerPl-aCncon 08-28-2023 TSH Qn 0.148 m[IU]/L Low 0.270-4.200 [facility] Comment on above: Order Comment: Speci men Type: BLOOD SPECIMENOrdering Facility: [facility] Address: [address] [place] [address] Performed By: #### 2 4323-8, 3024-7, 85640-9, 6-3 ####[facility] LABCLIA [id number] [place] [address] [place] Transfer Noteon 08-28-2023 Transfer Note [id number]#1.00[facility] XR ABDOMEN 1V SUPINEon 08-27 XR ABDOMEN 1V SUPINE Normal [facility] XR CHEST 1V FRONTAL PORTon 0 08-28-2023 XR CHEST 1V FRONTAL PORT Normal [facility] .Auto Diff 1on 08-27-2023 Auto Mif[place] % 10 % Normal 12 [facility] Comment on above: Performed By: #### 1 [id number], [id number], [id number] ####[facility] (DEFAULT)[address] [place] [address] Baso Abs# 0.0 x10 Normal 0.0-0.2 [facility] Comment on above: Performed By: #### 1 [id number], [id number], [id number] ####[facility] (DEFAULT)[address] [place] [address] Basophils/100 WBC (Bld) 0.6 % Normal 0.2-2.0 [facility] Comment on above: Performed By: #### 1 9619101, [id number], [id number] ####[facility] (DEFAULT)[address] [place] [address] Eos Abs# 0.3 x10 Normal 0.0-0.4 [facility] Comment on above: Performed By: #### 1 0793244, [id number], [id number] ####[facility] (DEFAULT)[address] [place] [address] Eosinophils/100 WBC (Bld) 4.2 % High 0.9-4.0 [facility] Comment on above: Performed By: #### 1 7614460, [id number], 5507560 ####[facility] (DEFAULT)[address] [place] [address] Lymph Abs# 0.5 x10 Low 1.3-2.9 [facility] Comment on above: Performed By: #### 1 1856334, [id number], 1885166 ####[facility] (DEFAULT)[address] [place] [address] Lymphocytes/100 WBC (Bld) 8 % Low 14-48 [facility] Comment on above: Performed By: #### 1 7751429, [id number], [id number] ####[facility] (DEFAULT)[address] [place] [address] Mifflin Abs# 0.7 x10 Normal 0.0-0.8 [facility] Comment on above: Performed By: #### 1 2765854, [id number], 7293630 ####[facility] (DEFAULT)[address] [place] [address] Neut Abs# 5.3 x10 Normal 1.5-9.2 [facility] Comment on above: Performed By: #### 1 2909485, [id number], 6906297 ####[facility] (DEFAULT)[address] [place] [address] Neutrophils/100 WBC (Bld) 77 % Normal 44-88 [facility] Comment on above: Performed By: #### 1 0511268, [id number], [id number] ####[facility] (DEFAULT)[address] [place] [address] CBC w/ Auto Diffon 4 Erythrocyte distribution width (RBC) [Ratio] 14.2 % Normal 11.5-15.0 [facility] Comment on above: Performed By: #### 1 8858136, [id number], 4821501 ####[facility] (DEFAULT)[address] [place] [address] Hematocrit (Bld) [Volume fraction] 32.7 % Low 33.7-40.4 [facility] Comment on above: Performed By: #### 1 8205257, [id number], 2197874 ####[facility] (DEFAULT)[address] [place] [address] Hemoglobin (Bld) [Mass/Vol] 11.3 g/dL Normal 11.3-15.9 [facility] Comment on above: Performed By: #### 1 6487739, [id number], 6258827 ####[facility] (DEFAULT)[address] [place] [address] Man Diff? Auto Invalid Interpretation Code [facility] Comment on above: Performed By: #### 1 0229587, [id number], [id number] ####[facility] (DEFAULT)[address] [place] [address] MCH (RBC) [Entitic mass] 27 pg Normal 24-34 [facility] Comment on above: Performed By: #### 1 3062352, [id number], 1131863 ####[facility] (DEFAULT)[address] [place] [address] MCHC (RBC) [Mass/Vol] 35 g/dL Normal 26-37 [facility] Comment on above: Performed By: #### 1 0271043, [id number], 4631086 ####[facility] (DEFAULT)[address] [place] [address] MCV (RBC) [Entitic vol] 79 fL Low 81-100 [facility] Comment on above: Performed By: #### 1 4380005, [id number], 8495056 ####[facility] (DEFAULT)[address] [place] [address] Platelet 236 x10 Normal 138-427 [facility] Comment on above: Performed By: #### 1 9113548, [id number], 9878349 ####[facility] (DEFAULT)[address] [place] [address] Platelet mean volume (Bld) [Entitic vol] 7.9 fL Normal 6.3-10.2 [facility] Comment on above: Performed By: #### 1 6853074, [id number], 3964887 ####[facility] (DEFAULT)[address] [place] [address] RBC 4.13 x10 Normal 3.70-5.30 [facility] Comment on above: Performed By: #### 1 0913120, [id number], 9053614 ####[facility] (DEFAULT)[address] [place] [address] WBC 6.8 x10 Normal 3.5-10.5 [facility] Comment on above: Performed By: #### 1 8688740, [id number], 2509315 ####[facility] (DEFAULT)[address] [place] [address] Nutrition Noteon 08-27-2023 Nutrition Note Normal [facility] POCT Glucose Levelon 024 Glucose [Mass/Vol] 116 mg/dL Normal 74-118 [facility] Comment on above: Performed By: #### 4 [id number] ####[facility] (DEFAULT)[address] [place] [address] [id number] Glucose [Mass/Vol] 88 mg/dL Normal 74-118 [facility] Comment on above: Performed By: #### [id number] ####[facility] (DEFAULT)[address] [place] [address] [id number] Glucose [Mass/Vol] 100 mg/dL Normal 74-118 [facility] Comment on above: Performed By: #### [id number] ####[facility] (DEFAULT)[address] [place] [address] 14426 Progress Note - Nurseon 07-29 Progress Note - Nurse Normal [facility] Progress Note - Nurse Normal [facility] Progress Note - Nurse Normal [facility] Progress Note - Nurse [id number]#[id number] Normal [facility] Renal Function Panel Standar don 08-27-2023 eGFR Non AA >60 Invalid Interpretation Code [facility] Comment on above: Performed By: #### 1 [id number], [id number], [id number] ####[facility] (DEFAULT)[address] [place] [address] 95794 eGFR AA >60 Invalid Interpretation Code [facility] Comment on above: Performed By: #### 1 [id number], [id number], [id number] ####[facility] (DEFAULT)[address] [place] [address] 45558 Albumin [Mass/Vol] 3.3 g/dL Low 3.5-5.0 [facility] Comment on above: Performed By: #### 1 [id number], [id number], [id number] ####[facility] (DEFAULT)[address] [place] [address] 74944 Anion gap [Moles/Vol] 10.3 mmol/L Normal 5.0-19.0 [facility] Comment on above: Performed By: #### 1 [id number], [id number], [id number] ####[facility] (DEFAULT)[address] [place] [address] 15163 Calcium [Mass/Vol] 8.3 mg/dL Low 8.9-10.3 [facility] Comment on above: Performed By: #### 1 [id number], [id number], [id number] ####[facility] (DEFAULT)[address] [place] [address] 45243 Chloride [Moles/Vol] 99 mmol/L Low 101-111 [facility] Comment on above: Performed By: #### 1 [id number], [id number], [id number] ####[facility] (DEFAULT)[address] [place] [address] 24194 CO2 [Moles/Vol] 29 mmol/L Normal 21-32 [facility] Comment on above: Performed By: #### 1 [id number], [id number], [id number] ####[facility] (DEFAULT)[address] [place] [address] 90079 Creatinine [Mass/Vol] 0.54 mg/dL Low 0.60-1.30 [facility] Comment on above: Performed By: #### 1 [id number], [id number], [id number] ####[facility] (DEFAULT)[address] [place] [address] 49540 Glucose [Mass/Vol] 78.0 mg/dL Normal 74.0-118.0 [facility] Comment on above: Performed By: #### 1 [id number], [id number], [id number] ####[facility] (DEFAULT)[address] [place] [address] 62649 Osmolality 272 mOsm/L Invalid Interpretation Code [facility] Comment on above: Performed By: #### 1 [id number], [id number], [id number] ####[facility] (DEFAULT)[address] [place] [address] 39150 Phosphate [Mass/Vol] 3.9 mg/dL Normal 2.5-4.6 [facility] Comment on above: Performed By: #### 1 [id number], [id number], [id number] ####[facility] (DEFAULT)[address] [place] [address] 71876 Potassium [Moles/Vol] 3.3 mmol/L Low 3.6-5.1 [facility] Comment on above: Performed By: #### 1 [id number], [id number], [id number] ####[facility] (DEFAULT)[address] [place] [address] 43338 Sodium [Moles/Vol] 135.0 mmol/L Low 136.0-144.0 [facility] Comment on above: Performed By: #### 1 [id number], [id number], [id number] ####[facility] (DEFAULT)[address] [place] [address] 74794 Urea nitrogen [Mass/Vol] 20 mg/dL Normal 8-26 [facility] Comment on above: Performed By: #### 1 [id number], [id number], [id number] ####[facility] (DEFAULT)[address] [place] [address] Urea nitrogen/Creatinine [Mass ratio] 37.0 mg/mg High 4.6-16.2 [facility] Comment on above: Performed By: #### 1 [id number], [id number], [id number] ####[facility] (DEFAULT)[address] [place] [address] 00028 BMP Standardon 08-26-2023 eGFR Non AA >60 Invalid Interpretation Code [facility] Comment on above: Order Comment: Jay baker has a picc line. Tubes were given to Cinthya Baeza RN. Brian Quintana RN also confirmed Picc Line. 08/26/2023 05:38:28 EDT Performed By: #### 1 [id number], [id number], [id number] ####[facility] (DEFAULT)[address] [place] [address] 00106 eGFR AA >60 Invalid Interpretation Code [facility] Comment on above: Order Comment: Jay baker has a picc line. Tubes were given to Cinthya Baeza RN. Brian Quintana RN also confirmed Picc Line. 08/26/2023 05:38:28 EDT Performed By: #### 1 [id number], [id number], [id number] ####[facility] (DEFAULT)[address] [place] [address] 03142 Anion gap [Moles/Vol] 7.4 mmol/L Normal 5.0-19.0 [facility] Comment on above: Order Comment: Jay baker has a picc line. Tubes were given to Cinthya Baeza RN. Brian Quintana RN also confirmed Picc Line. 08/26/2023 05:38:28 EDT Performed By: #### 1 [id number], [id number], [id number] ####[facility] (DEFAULT)[address] [place] [address] 60283 Calcium [Mass/Vol] 8.3 mg/dL Low 8.9-10.3 [facility] Comment on above: Order Comment: Jay baker has a picc line. Tubes were given to Cinthya Baeza RN. Brian Quintana RN also confirmed Picc Line. 08/26/2023 05:38:28 EDT Performed By: #### 1 [id number], [id number], [id number] ####[facility] (DEFAULT)[address] [place] [address] 19814 Chloride [Moles/Vol] 103 mmol/L Normal 101-111 [facility] Comment on above: Order Comment: Jay baker has a picc line. Tubes were given to Cinthya Baeza RN. Brian Quintana RN also confirmed Picc Line. 08/26/2023 05:38:28 EDT Performed By: #### 1 [id number], [id number], [id number] ####[facility] (DEFAULT)[address] [place] [address] 24022 CO2 [Moles/Vol] 26 mmol/L Normal 21-32 [facility] Comment on above: Order Comment: Jay baker has a picc line. Tubes were given to Cinthya Baeza RN. Brian Quintana RN also confirmed Picc Line. 08/26/2023 05:38:28 EDT Performed By: #### 1 [id number], [id number], [id number] ####[facility] (DEFAULT)[address] [place] [address] Creatinine [Mass/Vol] 0.49 mg/dL Low 0.60-1.30 [facility] Comment on above: Order Comment: Jay baker has a picc line. Tubes were given to Cinthya Baeza RN. Brian Quintana RN also confirmed Picc Line. 08/26/2023 05:38:28 EDT Performed By: #### 1 [id number], [id number], [id number] ####[facility] (DEFAULT)[address] [place] [address] 75645 Glucose [Mass/Vol] 106.0 mg/dL Normal 74.0-118.0 [facility] Comment on above: Order Comment: Jay baker has a picc line. Tubes were given to Cinthya Baeza RN. Brian Quintana RN also confirmed Picc Line. 08/26/2023 05:38:28 EDT Performed By: #### 1 [id number], [id number], [id number] ####[facility] (DEFAULT)[address] [place] [address] 20980 Osmolality 267 mOsm/L Invalid Interpretation Code [facility] Comment on above: Order Comment: Jay baker has a picc line. Tubes were given to Cinthya Baeza RN. Brian Quintana RN also confirmed Picc Line. 08/26/2023 05:38:28 EDT Performed By: #### 1 [id number], [id number], [id number] ####[facility] (DEFAULT)[address] [place] [address] 09043 Potassium [Moles/Vol] 3.4 mmol/L Low 3.6-5.1 [facility] Comment on above: Order Comment: Jay baker has a picc line. Tubes were given to Cinthya Baeza RN. Brian Quintana RN also confirmed Picc Line. 08/26/2023 05:38:28 EDT Result Comment: Pota ssium Therapy Performed By: #### 1 [id number], [id number], [id number] ####[facility] (DEFAULT)[address] [place] [address] 45860 Sodium [Moles/Vol] 133.0 mmol/L Low 136.0-144.0 [facility] Comment on above: Order Comment: Jay baker has a picc line. Tubes were given to Cinthya Baeza RN. Brian Quintana RN also confirmed Picc Line. 08/26/2023 05:38:28 EDT Performed By: #### 1 [id number], [id number], [id number] ####[facility] (DEFAULT)[address] [place] [address] 81283 Urea nitrogen [Mass/Vol] 13 mg/dL Normal 8-26 [facility] Comment on above: Order Comment: Jay baker has a picc line. Tubes were given to Cinthya Baeza RN. Brian Quintana RN also confirmed Picc Line. 08/26/2023 05:38:28 EDT Performed By: #### 1 [id number], [id number], [id number] ####[facility] (DEFAULT)[address] [place] [address] 89912 Urea nitrogen/Creatinine [Mass ratio] 26.5 mg/mg High 4.6-16.2 [facility] Comment on above: Order Comment: Jay baker has a picc line. Tubes were given to Cinthya Baeza RN. Brian Quintana RN also confirmed Picc Line. 08/26/2023 05:38:28 EDT Performed By: #### 1 [id number], [id number], [id number] ####[facility] (DEFAULT)[address] [place] [address] 30828 Extra Seaman 08-26-2023 Tube Collected Yes Invalid Interpretation Code [facility] Comment on above: Performed By: #### 1 [id number], [id number], [id number] ####[facility] (DEFAULT)[address] [place] [address] 43546 Magnesiumon 08-26-2023 Magnesium [Mass/Vol] 1.73 mg/dL Low 1.80-2.50 [facility] Comment on above: Order Comment: Jay baker has a picc line. Tubes were given to Cinthya Baeza RN. Brian Quintana RN also confirmed Picc Line. 08/26/2023 05:38:28 EDT Performed By: #### 1 [id number], [id number], [id number] ####[facility] (DEFAULT)[address] [place] [address] 19502 Nutrition Noteon 08-26-2023 Nutrition Note Normal [facility] POCT Glucose Levelon 024 Glucose [Mass/Vol] 106 mg/dL Normal 74-118 [facility] Comment on above: Performed By: #### 4 [id number] ####[facility] (DEFAULT)[address] [place] [address] 11238 Glucose [Mass/Vol] 110 mg/dL Normal 74-118 [facility] Comment on above: Performed By: #### 4 [id number] ####[facility] (DEFAULT)[address] [place] [address] 26024 Glucose [Mass/Vol] 105 mg/dL Normal 74-118 [facility] Comment on above: Performed By: #### 4 [id number] ####[facility] (DEFAULT)[address] [place] [address] 68429 Glucose [Mass/Vol] 128 mg/dL High 74-118 [facility] Comment on above: Performed By: #### 4 [id number] ####[facility] (DEFAULT)[address] [place] [address] 20928 Pharmacy Noteon 08-26-2023 Pharmacy Note Normal [facility] Progress Note - Nurseon 07-29 Progress Note - Nurse Normal [facility] Progress Note - Nurse Normal [facility] Progress Note - Nurse Normal [facility] Progress Note - Nurse Normal [facility] Progress Note - Nurse [id number]#[id number] FF Normal [facility] BMP Standardon 08-25-2023 eGFR Non AA >60 Invalid Interpretation Code [facility] Comment on above: Performed By: #### 1 [id number], [id number] ####[facility] (DEFAULT)[address] [place] [address] 48823 eGFR AA >60 Invalid Interpretation Code [facility] Comment on above: Performed By: #### 1 [id number], [id number] ####[facility] (DEFAULT)[address] [place] [address] 67938 Anion gap [Moles/Vol] 8.9 mmol/L Normal 5.0-19.0 [facility] Comment on above: Performed By: #### 1 [id number], [id number] ####[facility] (DEFAULT)[address] [place] [address] 40010 Calcium [Mass/Vol] 8.2 mg/dL Low 8.9-10.3 [facility] Comment on above: Performed By: #### 1 [id number], ####[facility] (DEFAULT)[address] [place] [address] 88756 Chloride [Moles/Vol] 107 mmol/L Normal 101-111 [facility] Comment on above: Performed By: #### 1 [id number], ####[facility] (DEFAULT)[address] [place] [address] 42881 CO2 [Moles/Vol] 26 mmol/L Normal 21-32 [facility] Comment on above: Performed By: #### 1 [id number], ####[facility] (DEFAULT)[address] [place] [address] 61322 Creatinine [Mass/Vol] 0.56 mg/dL Low 0.60-1.30 [facility] Comment on above: Performed By: #### 1 [id number], ####[facility] (DEFAULT)[address] [place] [address] 30466 Glucose [Mass/Vol] 119.0 mg/dL High 74.0-118.0 [facility] Comment on above: Performed By: #### 1 [id number], ####[facility] (DEFAULT)[address] [place] [address] 74960 Osmolality 280 mOsm/L Invalid Interpretation Code [facility] Comment on above: Performed By: #### 1 [id number], ####[facility] (DEFAULT)[address] [place] [address] 91241 Potassium [Moles/Vol] 2.9 mmol/L Low 3.6-5.1 [facility] Comment on above: Performed By: #### 1 [id number], ####[facility] (DEFAULT)[address] [place] [address] 34574 Sodium [Moles/Vol] 139.0 mmol/L Normal 136.0-144.0 [facility] Comment on above: Performed By: #### 1 [id number], ####[facility] (DEFAULT)[address] [place] [address] 56385 Urea nitrogen [Mass/Vol] 16 mg/dL Normal 8-26 [facility] Comment on above: Performed By: #### 1 [id number], [id number] ####[facility] (DEFAULT)[address] [place] [address] 35650 Urea nitrogen/Creatinine [Mass ratio] 28.5 mg/mg High 4.6-16.2 [facility] Comment on above: Performed By: #### 1 [id number], [id number] ####[facility] (DEFAULT)[address] [place] [address] 39781 Extra Rocky 08-25-2023 Tube Collected Yes Invalid Interpretation Code [facility] Comment on above: Performed By: #### 1 [id number], [id number] ####[facility] (DEFAULT)[address] [place] [address] 43434 Magnesiumon 08-25-2023 Magnesium [Mass/Vol] 1.64 mg/dL Low 1.80-2.50 [facility] Comment on above: Performed By: #### 2 [id number], [id number], [id number] ####[facility] (DEFAULT)[address] [place] [address] 91442 Nutrition Noteon 08-25-2023 Nutrition Note Normal [facility] POCT Glucose Levelon 024 Glucose [Mass/Vol] 97 mg/dL Normal 74-118 [facility] Comment on above: Performed By: #### 4 [id number] ####[facility] (DEFAULT)[address] [place] [address] 98671 Phoson 08-25-2023 Phosphate [Mass/Vol] 1.6 mg/dL Low 2.5-4.6 [facility] Comment on above: Performed By: #### 2 [id number], [id number], [id number] ####[facility] (DEFAULT)[address] [place] [address] 50259 Prealbumin Levelon 4 Prealbumin [Mass/Vol] 5.70 mg/dL Low 18.00-38.00 [facility] Comment on above: Performed By: #### 2 [id number], [id number], [id number] ####[facility] (DEFAULT)[address] [place] [address] 11389 Progress Note - Nurseon 07-28 Progress Note - Nurse [id number]#[id number] FF Normal [facility] Progress Note - Nurse Normal [facility] Standardon 08-24-2023 eGFR Non AA >60 Invalid Interpretation Code [facility] Comment on above: Performed By: #### 1 [id number] ####[facility] (DEFAULT)[address] [place] [address] 81052 eGFR AA >60 Invalid Interpretation Code [facility] Comment on above: Performed By: #### 1 [id number] ####[facility] (DEFAULT)[address] [place] [address] 12888 Anion gap [Moles/Vol] 13.1 mmol/L Normal 5.0-19.0 [facility] Comment on above: Performed By: #### 1 [id number] ####[facility] (DEFAULT)[address] [place] [address] 71884 Calcium [Mass/Vol] 8.7 mg/dL Low 8.9-10.3 [facility] Comment on above: Performed By: #### 1 [id number] ####[facility] (DEFAULT)[address] [place] [address] 87285 Chloride [Moles/Vol] 106 mmol/L Normal 101-111 [facility] Comment on above: Performed By: #### 1 [id number] ####[facility] (DEFAULT)[address] [place] [address] 90178 CO2 [Moles/Vol] 24 mmol/L Normal 21-32 [facility] Comment on above: Performed By: #### 1 [id number] ####[facility] (DEFAULT)[address] [place] [address] 40871 Creatinine [Mass/Vol] 0.63 mg/dL Normal 0.60-1.30 [facility] Comment on above: Performed By: #### 1 [id number] ####[facility] (DEFAULT)[address] [place] [address] 63472 Glucose [Mass/Vol] 102.0 mg/dL Normal 74.0-118.0 [facility] Comment on above: Performed By: #### 1 [id number] ####[facility] (DEFAULT)[address] [place] [address] 70763 Osmolality 281 mOsm/L Invalid Interpretation Code [facility] Comment on above: Performed By: #### 1 [id number] ####[facility] (DEFAULT)[address] [place] [address] 86900 Potassium [Moles/Vol] 3.1 mmol/L Low 3.6-5.1 [facility] Comment on above: Performed By: #### 1 [id number] ####[facility] (DEFAULT)[address] [place] [address] 32546 Sodium [Moles/Vol] 140.0 mmol/L Normal 136.0-144.0 [facility] Comment on above: Performed By: #### 1 [id number] ####[facility] (DEFAULT)[address] [place] [address] 90857 Urea nitrogen [Mass/Vol] 18 mg/dL Normal 8-26 [facility] Comment on above: Performed By: #### 1 [id number] ####[facility] (DEFAULT)[address] [place] [address] 93571 Urea nitrogen/Creatinine [Mass ratio] 28.5 mg/mg High 4.6-16.2 [facility] Comment on above: Performed By: #### 1 [id number] ####[facility] (DEFAULT)[address] [place] [address] 13200 C Urineon 08-24-2023 C Urine Urine Culture ordere d as a result of parameters set on specific urine dip and urine microsopic results. Mixed skin, or urogenital alban. Clinically insignificant Normal [facility] Comment on above: Performed By: #### 1 [id number], [id number], [id number] ####[facility] (DEFAULT)[address] [place] [address] 95911 Nutrition Noteon 08-24-2023 Nutrition Note Normal [facility] Nutrition Note Normal [facility] Plan of Care Noteon 08-24-19 Plan of Care Note Normal [facility] Progress Note - Nurseon 07-28 Progress Note - Nurse Normal [facility] Progress Note - Nurse Normal [facility] XR Swallowing Functionon XR Swallowing Function Normal [facility] Comment on above: Order Comment: Viki mon therapist suggest MBF from the start .Auto Diff 108-23-2023 Auto Mifflin % 8 % Normal -12 [facility] Comment on above: Performed By: #### 1 [id number], [id number], [id number] ####[facility] (DEFAULT)[address] [place] [address] 68635 Baso Abs# 0.1 x10 Normal 0.0-0.2 [facility] Comment on above: Performed By: #### 1 [id number], [id number], [id number] ####[facility] (DEFAULT)[address] [place] [address] 02675 Basophils/100 WBC (Bld) 0.8 % Normal 0.2-2.0 [facility] Comment on above: Performed By: #### 1 [id number], [id number], [id number] ####[facility] (DEFAULT)[address] [place] [address] 89455 Eos Abs# 0.0 x10 Normal 0.0-0.4 [facility] Comment on above: Performed By: #### 1 [id number], [id number], [id number] ####[facility] (DEFAULT)[address] [place] [address] 56504 Eosinophils/100 WBC (Bld) 0.0 % Low 0.9-4.0 [facility] Comment on above: Performed By: #### 1 [id number], [id number], [id number] ####[facility] (DEFAULT)[address] [place] [address] 57578 Lymph Abs# 0.5 x10 Low 1.3-2.9 [facility] Comment on above: Performed By: #### 1 [id number], [id number], [id number] ####[facility] (DEFAULT)[address] [place] [address] 15016 Lymphocytes/100 WBC (Bld) 4 % Low 14-48 [facility] Comment on above: Performed By: #### 1 [id number], [id number], [id number] ####[facility] (DEFAULT)[address] [place] [address] Mifflin Abs# 1.0 x10 High 0.0-0.8 [facility] Comment on above: Performed By: #### 1 [id number], [id number], [id number] ####[facility] (DEFAULT)[address] [place] [address] Neut Abs# 10.3 x10 High 1.5-9.2 [facility] Comment on above: Performed By: #### 1 [id number], [id number], [id number] ####[facility] (DEFAULT)[address] [place] [address] Neutrophils/100 WBC (Bld) 87 % Normal 44-88 [facility] Comment on above: Performed By: #### 1 [id number], [id number], [id number] ####[facility] (DEFAULT)[address] [place] [address] 88715 BMP Standardon 08-23-2023 eGFR Non AA >60 Invalid Interpretation Code [facility] Comment on above: Performed By: #### 1 [id number], [id number], [id number] ####[facility] (DEFAULT)[address] [place] [address] 26754 eGFR AA >60 Invalid Interpretation Code [facility] Comment on above: Performed By: #### 1 [id number], [id number], [id number] ####[facility] (DEFAULT)[address] [place] [address] 25494 Anion gap [Moles/Vol] 13.0 mmol/L Normal 5.0-19.0 [facility] Comment on above: Performed By: #### 1 [id number], [id number], [id number] ####[facility] (DEFAULT)[address] [place] [address] 02525 Calcium [Mass/Vol] 8.4 mg/dL Low 8.9-10.3 [facility] Comment on above: Performed By: #### 1 [id number], [id number], [id number] ####[facility] (DEFAULT)[address] [place] [address] 39484 Chloride [Moles/Vol] 106 mmol/L Normal 101-111 [facility] Comment on above: Performed By: #### 1 [id number], [id number], [id number] ####[facility] (DEFAULT)[address] [place] [address] 71877 CO2 [Moles/Vol] 23 mmol/L Normal 21-32 [facility] Comment on above: Performed By: #### 1 [id number], [id number], [id number] ####[facility] (DEFAULT)[address] [place] [address] 43945 Creatinine [Mass/Vol] 0.77 mg/dL Normal 0.60-1.30 [facility] Comment on above: Performed By: #### 1 [id number], [id number], [id number] ####[facility] (DEFAULT)[address] [place] [address] 81042 Glucose [Mass/Vol] 99.0 mg/dL Normal 74.0-118.0 [facility] Comment on above: Performed By: #### 1 [id number], [id number], [id number] ####[facility] (DEFAULT)[address] [place] [address] 07489 Osmolality 282 mOsm/L Invalid Interpretation Code [facility] Comment on above: Performed By: #### 1 [id number], [id number], [id number] ####[facility] (DEFAULT)[address] [place] [address] 71084 Potassium [Moles/Vol] 3.0 mmol/L Low 3.6-5.1 [facility] Comment on above: Performed By: #### 1 [id number], [id number], [id number] ####[facility] (DEFAULT)[address] [place] [address] 28627 Sodium [Moles/Vol] 139.0 mmol/L Normal 136.0-144.0 [facility] Comment on above: Performed By: #### 1 [id number], [id number], [id number] ####[facility] (DEFAULT)[address] [place] [address] 91071 Urea nitrogen [Mass/Vol] 26 mg/dL Normal 8-26 [facility] Comment on above: Performed By: #### 1 [id number], [id number], [id number] ####[facility] (DEFAULT)[address] [place] [address] 86209 Urea nitrogen/Creatinine [Mass ratio] 33.7 mg/mg High 4.6-16.2 [facility] Comment on above: Performed By: #### 1 [id number], [id number], [id number] ####[facility] (DEFAULT)[address] [place] [address] CBC w/ Auto Diffon 4 Erythrocyte distribution width (RBC) [Ratio] 14.6 % Normal 11.5-15.0 [facility] Comment on above: Performed By: #### 1 [id number], 1677448, [id number] ####[facility] (DEFAULT)[address] [place] [address] 28589 Hematocrit (Bld) [Volume fraction] 30.3 % Low 33.7-40.4 [facility] Comment on above: Performed By: #### 1 [id number], 0991205, 67771797 ####[facility] (DEFAULT)[address] [place] [address] 64074 Hemoglobin (Bld) [Mass/Vol] 10.3 g/dL Low 11.3-15.9 [facility] Comment on above: Result Comment: IV T herapy Performed By: #### 1 [id number], 1573503, 10877263 ####[facility] (DEFAULT)[address] [place] [address] 65611 Man Diff? Auto Invalid Interpretation Code [facility] Comment on above: Performed By: #### 1 [id number], 9175095, 38524413 ####[facility] (DEFAULT)[address] [place] [address] 21894 MCH (RBC) [Entitic mass] 27 pg Normal 24-34 [facility] Comment on above: Performed By: #### 1 [id number], 1375659, 02765844 ####[facility] (DEFAULT)[address] [place] [address] MCHC (RBC) [Mass/Vol] 34 g/dL Normal 26-37 [facility] Comment on above: Performed By: #### 1 [id number], 8407007, 68319521 ####[facility] (DEFAULT)[address] [place] [address] MCV (RBC) [Entitic vol] 80 fL Low 81-100 [facility] Comment on above: Performed By: #### 1 [id number], 7379353, 14414090 ####[facility] (DEFAULT)[address] [place] [address] Platelet 196 x10 Normal 138-427 [facility] Comment on above: Performed By: #### 1 [id number], 6538588, 76536838 ####[facility] (DEFAULT)[address] [place] [address] Platelet mean volume (Bld) [Entitic vol] 8.9 fL Normal 6.3-10.2 [facility] Comment on above: Performed By: #### 1 [id number], 7694705, 98463620 ####[facility] (DEFAULT)[address] [place] [address] RBC 3.77 x10 Normal 3.70-5.30 [facility] Comment on above: Performed By: #### 1 [id number], 2216069, 37931355 ####[facility] (DEFAULT)[address] [place] [address] WBC 11.9 x10 High 3.5-10.5 [facility] Comment on above: Performed By: #### 1 [id number], 4043992, 66258929 ####[facility] (DEFAULT)[address] [place] [address] Progress Note - Nurseon 03-2 Progress Note - Nurse Normal [facility] Progress Note - Nurse Normal [facility] Progress Note - Nurse Normal [facility] Progress Note - Nurse Normal [facility] Progress Note - Nurse Normal [facility] .Auto Diff 1on 08-22-2023 Auto Mifflin % 5 % Normal -12 [facility] Comment on above: Performed By: #### 1 [id number], 5021894055, 65104231, 3318990, 0555101, 3069117450, 0182188620 ####[facility] (DEFAULT)[address] [place] [address] 22803 Baso Abs# 0.0 x10 Normal 0.0-0.2 [facility] Comment on above: Performed By: #### 1 [id number], 3696634764, 74876991, 0686944, 1176005, 3313615186, 8392354132 ####[facility] (DEFAULT)[address] [place] [address] 00682 Basophils/100 WBC (Bld) 0.1 % Low 0.2-2.0 [facility] Comment on above: Performed By: #### 1 856890727, 7873217290, 31067091, 0207227, 1367002, 5536468905, 2386983064 ####[facility] (DEFAULT)[address] [place] [address] 93526 Eos Abs# 0.0 x10 Normal 0.0-0.4 [facility] Comment on above: Performed By: #### 1 125927308, 3314786566, 82760758, 3046231, 1108205, 8497123326, 2879538673 ####[facility] (DEFAULT)[address] [place] [address] 80560 Eosinophils/100 WBC (Bld) 0.3 % Low 0.9-4.0 [facility] Comment on above: Performed By: #### 1 [id number], 5896956414, 75805495, 4618974, 2056295, 4874988270, 5781219773 ####[facility] (DEFAULT)[address] [place] [address] 14697 Lymph Abs# 0.5 x10 Low 1.3-2.9 [facility] Comment on above: Performed By: #### 1 899762361, 8251311457, 49574612, 2528514, 7449558, 6367754373, 9634110907 ####[facility] (DEFAULT)[address] [place] [address] Lymphocytes/100 WBC (Bld) 3 % Low 14-48 [facility] Comment on above: Performed By: #### 1 078090257, 1490736277, 90197181, 4605920, 7487876, 5845552244, 3270393413 ####[facility] (DEFAULT)[address] [place] [address] Mifflin Abs# 0.9 x10 High 0.0-0.8 [facility] Comment on above: Performed By: #### 1 [id number], 6176803751, 76112956, 4411101, 0155416, 6680059298, 0848643618 ####[facility] (DEFAULT)[address] [place] [address] Neut Abs# 15.8 x10 High 1.5-9.2 [facility] Comment on above: Performed By: #### 1 [id number], 4336282450, 17673060, 0050184, 5352869, 6456428191, 9452917488 ####[facility] (DEFAULT)[address] [place] [address] Neutrophils/100 WBC (Bld) 92 % High 44-88 [facility] Comment on above: Performed By: #### 1 059973582, 4280632272, 97017092, 7145508, 1041850, 9082635047, 0047527521 ####[facility] (DEFAULT)[address] [place] [address] CBC w/ Auto Diffon 4 Erythrocyte distribution width (RBC) [Ratio] 14.7 % Normal 11.5-15.0 [facility] Comment on above: Performed By: #### 1 [id number], 1881559466, 65378274, 8536008, 5837405, 0251463539, 8458913441 ####[facility] (DEFAULT)[address] [place] [address] Hematocrit (Bld) [Volume fraction] 36.2 % Normal 33.7-40.4 [facility] Comment on above: Performed By: #### 1 263812193, 0371493579, 83360698, 9524013, 6581198, 6323388253, 1706396448 ####[facility] (DEFAULT)[address] [place] [address] Hemoglobin (Bld) [Mass/Vol] 12.3 g/dL Normal 11.3-15.9 [facility] Comment on above: Performed By: #### 1 715979216, 2913525191, 88186091, 7985751, 9892698, 0116894175, 6258996056 ####[facility] (DEFAULT)[address] [place] [address] Man Diff? Auto Invalid Interpretation Code [facility] Comment on above: Performed By: #### 1 [id number], 4343373213, 82932803, 8100163, 4052286, 8365063712, 3049835080 ####[facility] (DEFAULT)[address] [place] [address] MCH (RBC) [Entitic mass] 27 pg Normal 24-34 [facility] Comment on above: Performed By: #### 1 356634744, 0131015394, 74087331, 5486941, 7065613, 4979747628, 2749034039 ####[facility] (DEFAULT)[address] [place] [address] MCHC (RBC) [Mass/Vol] 34 g/dL Normal 26-37 [facility] Comment on above: Performed By: #### 1 478597312, 8475641958, 41672384, 3190294, 6996143, 3192943636, 3347782878 ####[facility] (DEFAULT)[address] [place] [address] MCV (RBC) [Entitic vol] 80 fL Low 81-100 [facility] Comment on above: Performed By: #### 1 735706440, 0679233995, 63796896, 5873650, 2926654, 3273582936, 5590953893 ####[facility] (DEFAULT)[address] [place] [address] Platelet 249 x10 Normal 138-427 [facility] Comment on above: Performed By: #### 1 978605739, 0501498388, 70328658, 7824319, 2641256, 1022883563, 5425479796 ####[facility] (DEFAULT)[address] [place] [address] Platelet mean volume (Bld) [Entitic vol] 8.0 fL Normal 6.3-10.2 [facility] Comment on above: Performed By: #### 1 365863294, 5763518990, 81972091, 4470098, 3906814, 8952564202, 6692013060 ####[facility] (DEFAULT)[address] [place] [address] RBC 4.54 x10 Normal 3.70-5.30 [facility] Comment on above: Performed By: #### 1 550087157, 2329376488, 79256264, 8044530, 4790558, 1621371084, 4192290478 ####[facility] (DEFAULT)[address] [place] [address] WBC 17.2 x10 High 3.5-10.5 [facility] Comment on above: Result Comment: Slid e Reviewed Performed By: #### 1 598849508, 6351973875, 88323656, 4263360, 3680718, 2262622529, 9865841724 ####[facility] (DEFAULT)[address] [place] [address] CMP Standardon 08-22-2023 eGFR Non AA >60 Invalid Interpretation Code [facility] Comment on above: Performed By: #### 1 [id number], 5230164709, 67625716, 2909663, 5523830, 1918987737, 7292299651 ####[facility] (DEFAULT)[address] [place] [address] eGFR AA >60 Invalid Interpretation Code [facility] Comment on above: Performed By: #### 1 596917024, 6354208074, 72720976, 9677184, 3228529, 1257553333, 7000831737 ####[facility] (DEFAULT)[address] [place] [address] 19588 Albumin [Mass/Vol] 4.2 g/dL Normal 3.5-5.0 [facility] Comment on above: Performed By: #### 1 115750266, 7949604467, 70572746, 5509604, 3593614, 5494301270, 9406946694 ####[facility] (DEFAULT)[address] [place] [address] 27235 Albumin/Globulin [Mass ratio] 1.0 {ratio} Low 1.4-2.6 [facility] Comment on above: Performed By: #### 1 676491589, 3547106583, 50841252, 6618526, 3890120, 9503506118, 0459199744 ####[facility] (DEFAULT)[address] [place] [address] 61881 Alk Phos 117 IU/L High 32-91 [facility] Comment on above: Performed By: #### 1 237930720, 8732894772, 00247132, 9941319, 1631846, 7972547692, 5351846787 ####[facility] (DEFAULT)[address] [place] [address] 69567 ALT [Catalytic activity/Vol] 27.0 U/L Normal 14.0-54.0 [facility] Comment on above: Performed By: #### 1 585893482, 7709252249, 99920888, 7777805, 1409744, 1877635344, 7880007957 ####[facility] (DEFAULT)[address] [place] [address] 77644 Anion gap [Moles/Vol] 15.3 mmol/L Normal 5.0-19.0 [facility] Comment on above: Performed By: #### 1 302391100, 6509694985, 39870660, 4356817, 1282925, 4062414894, 8146631166 ####[facility] (DEFAULT)[address] [place] [address] 18292 AST [Catalytic activity/Vol] 26 U/L Normal 15-41 [facility] Comment on above: Performed By: #### 1 228812187, 1206569802, 33363335, 8729175, 0656119, 4480202579, 4923390005 ####[facility] (DEFAULT)[address] [place] [address] 66084 Bili Total 1.1 mg/dL Normal 0.3-1.2 [facility] Comment on above: Performed By: #### 1 928387505, 3621618375, 45491047, 2388378, 9835797, 1305390802, ####[facility] (DEFAULT)[address] [place] [address] 47889 Calcium [Mass/Vol] 9.4 mg/dL Normal 8.9-10.3 [facility] Comment on above: Performed By: #### 1 960780218, 5728113768, 34039147, 5461596, 5714275, 8979224264, 5891648066 ####[facility] (DEFAULT)[address] [place] [address] 73241 Chloride [Moles/Vol] 103 mmol/L Normal 101-111 [facility] Comment on above: Performed By: #### 1 891349112, 3650304826, 89389488, 5234845, 7372603, 5570358662, 9957980020 ####[facility] (DEFAULT)[address] [place] [address] 96883 CO2 [Moles/Vol] 25 mmol/L Normal 21-32 [facility] Comment on above: Performed By: #### 1 369455354, 5649946413, 97686030, 7057478, 0637445, 6020422320, 5654291403 ####[facility] (DEFAULT)[address] [place] [address] 26580 Creatinine [Mass/Vol] 0.91 mg/dL Normal 0.60-1.30 [facility] Comment on above: Performed By: #### 1 304118527, 7226114900, 36033530, 2861188, 7572587, 9708821987, 5438256163 ####[facility] (DEFAULT)[address] [place] [address] 95234 Globulin (S) [Mass/Vol] 3.9 g/dL Normal 1.5-4.3 [facility] Comment on above: Performed By: #### 1 161512706, 7680455609, 51180268, 4650295, 8613745, 9408234872, 9498334347 ####[facility] (DEFAULT)[address] [place] [address] 68843 Glucose [Mass/Vol] 114.0 mg/dL Normal 74.0-118.0 [facility] Comment on above: Performed By: #### 1 413988559, 6438554885, 92744128, 6816316, 6955585, 1307757265, 0135785550 ####[facility] (DEFAULT)[address] [place] [address] 76259 Osmolality 288 mOsm/L Invalid Interpretation Code [facility] Comment on above: Performed By: #### 1 193819469, 5529278807, 60981964, 6692329, 5627510, 3878526149, 3167728682 ####[facility] (DEFAULT)[address] [place] [address] 70371 Potassium [Moles/Vol] 3.3 mmol/L Low 3.6-5.1 [facility] Comment on above: Performed By: #### 1 722769936, 8040487038, 90757258, 6972209, 8466254, 7011968747, 7597654599 ####[facility] (DEFAULT)[address] [place] [address] 22339 Protein [Mass/Vol] 8.1 g/dL Normal 6.5-8.1 [facility] Comment on above: Performed By: #### 1 481218426, 9619591790, 83812760, 8719116, 8019233, 4482022048, 6946820386 ####[facility] (DEFAULT)[address] [place] [address] 65510 Sodium [Moles/Vol] 140.0 mmol/L Normal 136.0-144.0 [facility] Comment on above: Performed By: #### 1 745047919, 7742535561, 11514538, 7373368, 2024685, 7587297483, 2281884021 ####[facility] (DEFAULT)[address] [place] [address] 06813 Urea nitrogen [Mass/Vol] 35 mg/dL High 01-21 [facility] Comment on above: Performed By: #### 1 677956559, 2280480665, 82169367, 3525075, 9725070, 9214873263, 0953351227 ####[facility] (DEFAULT)[address] [place] [address] 39439 Urea nitrogen/Creatinine [Mass ratio] 38.4 mg/mg High 4.6-16.2 [facility] Comment on above: Performed By: #### 1 146534310, 4132408603, 38575360, 6178975, 9348654, 2015181162, 5038060480 ####[facility] (DEFAULT)[address] [place] [address] 91338 CNPNon 08-22-2023 CNPN Normal [facility] CT Abdomen/Pelvis w/o Contra ston 08-22-2023 CT Abdomen/Pelvis w/o Contrast [facility] ED Clinical Summaryon 2023 ED Clinical Summary [facility] ED Note-Nursingon 08-22-2023 ED Note-Nursing [facility] ED Patient Education Noteon 08-22-2023 ED Patient Education Note Education [facility] ED Patient Summaryon 024 ED Patient Summary Normal [facility] Extra Redon 08-22-2023 Tube Collected Yes Invalid Interpretation Code [facility] Comment on above: Performed By: #### 1 [id number], 0216054027, 16354695, 4654491, 9412472, 7858245677, 8939764543 ####[facility] (DEFAULT)[address] [place] [address] 06255 Lipaseon 08-22-2023 Lipase Level 30.0 IU/L Normal 22.0-51.0 [facility] Comment on above: Performed By: #### 1 [id number], 9532422525, 28152955, 4441590, 7857733, 7185851622, 8092406709 ####[facility] (DEFAULT)[address] [place] [address] TnI HSon 08-22-2023 Troponin I High Sensitivity 5.7 pg/mL Normal <=15.0 [facility] Comment on above: Performed By: #### 1 [id number], 4260695329, 84061117, 3009870, 9932166, 6232468022, 7850335339 ####[facility] (DEFAULT)[address] [place] [address] UA Rlzgi0fl 08-22-2023 UA Bacteria 1+ [facility] Comment on above: Order Comment: Urina lysis Microscopic order added on by Discern Expert Rules system. Performed By: #### 1 781639372, 80340710, 2541765 ####[facility] (DEFAULT)[address] [place] [address] UA Gran Cast 5-10 [facility] Comment on above: Order Comment: Urina lysis Microscopic order added on by Dis[employer] Expert Rules system. Performed By: #### 1 409523308, 70712348, 8189173 ####[facility] (DEFAULT)[address] [place] [address] UA Hyal Cast 5-10 [facility] Comment on above: Order Comment: Urina lysis Microscopic order added on by Communication [employer] Expert Rules system. Performed By: #### 1 [id number], 61966218, 6384900 ####[facility] (DEFAULT)[address] [place] [address] UA Mucous 2+ [facility] Comment on above: Order Comment: Urina lysis Microscopic order added on by Discern Expert Rules system. Performed By: #### 1 [id number], 41442929, 2745092 ####[facility] (DEFAULT)[address] [place] [address] UA RBC 5-10 [facility] Comment on above: Order Comment: Urina lysis Microscopic order added on by Discern Expert Rules system. Performed By: #### 1 063590751, 28240921, 8462568 ####[facility] (DEFAULT)[address] [place] [address] UA Squam Epi Few [facility] Comment on above: Order Comment: Urina lysis Microscopic order added on by Discern Expert Rules system. Performed By: #### 1 [id number], 80763616, 5807505 ####[facility] (DEFAULT)[address] [place] [address] UA WBC 20-25 [facility] Comment on above: Order Comment: Urina lysis Microscopic order added on by Discern Expert Rules system. Performed By: #### 1 504680124, 53699576, 1719239 ####[facility] (DEFAULT)[address] [place] [address] UA w Culture if Ind Standard on 08-22-2023 Breakpoint UA [facility] Comment on above: Performed By: #### 1 532849594, 57257313, 2401384 ####[facility] (DEFAULT)[address] [place] [address] Color (U) Yellow [facility] Comment on above: Performed By: #### 1 547570150, 44809529, 1779173 ####[facility] (DEFAULT)[address] [place] [address] Culture? Indicated Invalid Interpretation [facility] Comment on above: Result Comment: Resu lt created by rule GL_MAGR_ADD_UA_CULT Result created by rule GL_MAGR_ADD_UA_CULT Result created by rule GL_MAGR_ADD_UA_CULT1 Result created by rule GL_MAGR_ADD_UA_CULT Performed By: #### 1 [id number], 54789946, 6011836 ####[facility] (DEFAULT)[address] [place] [address] Glucose (U) [Mass/Vol] Negative [facility] Comment on above: Performed By: #### 1 437629441, 21566287, 1623367 ####[facility] (DEFAULT)[address] [place] [address] Ketones Ql (U) 40 [facility] Comment on above: Performed By: #### 1 [id number], 08100792, 1806763 ####[facility] (DEFAULT)[address] [place] [address] 45248 Micro? Indicated Invalid Interpretation Code [facility] Comment on above: Result Comment: Resu lt created by rule GL_MAGR_ADD_UA_MICRO Performed By: #### 1 [id number], 18136424, 1140930 ####[facility] (DEFAULT)[address] [place] [address] 68990 UA Bilirubin MODERATE Abnormal [facility] Comment on above: Performed By: #### 1 549482980, 33375277, 5882437 ####[facility] (DEFAULT)[address] [place] [address] 20011 UA Blood Negative Normal NEGATIVE [facility] Comment on above: Performed By: #### 1 784739253, 21547605, 8220261 ####[facility] (DEFAULT)[address] [place] [address] 85799 UA Clarity CLOUDY Abnormal CLEAR [facility] Comment on above: Performed By: #### 1 485091673, 11447572, 6601891 ####[facility] (DEFAULT)[address] [place] [address] 58088 UA Leuk Est TRACE Abnormal NEGATIVE [facility] Comment on above: Performed By: #### 1 015934520, 24973398, 7180153 ####[facility] (DEFAULT)[address] [place] [address] 64187 UA Nitrite Negative Normal NEGATIVE [facility] Comment on above: Performed By: #### 1 695506590, 47880229, 1175969 ####[facility] (DEFAULT)[address] [place] [address] 84556 UA pH 6.0 Normal 5-8 [facility] Comment on above: Performed By: #### 1 861226146, 38633004, 0934738 ####[facility] (DEFAULT)[address] [place] [address] 72996 UA Protein 100 Abnormal NEGATIVE [facility] Comment on above: Performed By: #### 1 634290364, 64640156, 4137845 ####[facility] (DEFAULT)[address] [place] [address] UA Spec Grav >=1.030 Normal 1.001-1.035 [facility] Comment on above: Performed By: #### 1 656098793, 10159008, 2036236 ####[facility] (DEFAULT)[address] [place] [address] UA Urobilinogen 1.0 mg/dL Normal 0.2-1.0 [facility] Comment on above: Performed By: #### 1 961776423, 31264135, 5421389 ####[facility] (DEFAULT)[address] [place] [address] Urine Source Clean Catch Normal [facility] Comment on above: Performed By: #### 1 054322095, 33686317, 6441374 ####[facility] (DEFAULT)[address] [place] [address] .Auto Diff 08-20-2023 Auto Mifflin % 5 % Normal -12 [facility] Comment on above: Performed By: #### 1 440521112, 7617283924, 2051376512, 7700002, 02962385, 3700901, 9557830603 ####[facility] (DEFAULT)[address] [place] [address] Baso Abs# 0.0 x10 Normal 0.0-0.2 [facility] Comment on above: Performed By: #### 1 497204937, 3931396886, 8208313491, 3357162, 76758000, 7965180, 2835658814 ####[facility] (DEFAULT)[address] [place] [address] Basophils/100 WBC (Bld) 0.3 % Normal 0.2-2.0 [facility] Comment on above: Performed By: #### 1 892677687, 4878907504, 0586674276, 9083637, 61197682, 3629984, 3624156439 ####[facility] (DEFAULT)[address] [place] [address] Eos Abs# 0.1 x10 Normal 0.0-0.4 [facility] Comment on above: Performed By: #### 1 289208925, 5583459865, 4349002018, 1117477, 97422868, 8885781, 3634207945 ####[facility] (DEFAULT)[address] [place] [address] Eosinophils/100 WBC (Bld) 0.4 % Low 0.9-4.0 [facility] Comment on above: Performed By: #### 1 [id number], 5967486516, 4547097767, 9998827, 14388789, 2657126, 2661243218 ####[facility] (DEFAULT)[address] [place] [address] Lymph Abs# 0.5 x10 Low 1.3-2.9 [facility] Comment on above: Performed By: #### 1 542491754, 7048428382, 8982051210, 3915772, 26429180, 3368307, 5249013279 ####[facility] (DEFAULT)[address] [place] [address] Lymphocytes/100 WBC (Bld) 3 % Low 14-48 [facility] Comment on above: Performed By: #### 1 633669566, 1273267733, 8333129387, 2283808, 78024960, 0530535, 2088875925 ####[facility] (DEFAULT)[address] [place] [address] Mifflin Abs# 0.7 x10 Normal 0.0-0.8 [facility] Comment on above: Performed By: #### 1 912784546, 1616531322, 4265775284, 3287669, 97130311, 0591892, 0767123642 ####[facility] (DEFAULT)[address] [place] [address] Neut Abs# 13.5 x10 High 1.5-9.2 [facility] Comment on above: Performed By: #### 1 845840158, 2167642826, 5505252128, 8879913, 90354220, 0344955, 7881406126 ####[facility] (DEFAULT)[address] [place] [address] Neutrophils/100 WBC (Bld) 91 % High 44-88 [facility] Comment on above: Performed By: #### 1 [id number], [id number], [id number], [id number], [id number] ####[facility] (DEFAULT)[address] [place] [address] .QC SARS-CoV-2 (COVID-19)/Fl u/RSV (GeneXpert)on 08-21-2023 Internal Control Pass Normal [facility] Comment on above: Order Comment: Order ed by Rich.[[email or web address]] Performed By: #### 7 [id number] ####[facility] (DEFAULT)[address] [place] [address] BNP.on 08-21-2023 Natriuretic peptide B (Bld) [Mass/Vol] 8.9 pg/mL Normal 0.0-100.0 [facility] Comment on above: Result Comment: BNP results greater than 100 pg/mL are considered abnormal and suggestive of patients with CHF. Higher BNP concentrations measured in the first 72 hours after an acute coronary syndorme are associated with an increased risk of , myocardial infarction, and CHF. Performed By: #### 1 [id number], [id number], 0907454070, 5914571, 82065840, 4684251, [id number] ####[facility] (DEFAULT)[address] [place] [address] 82671 CBC w/ Auto Diffon Erythrocyte distribution width (RBC) [Ratio] 14.7 % Normal 11.5-15.0 [facility] Comment on above: Performed By: #### 1 [id number], [id number], 2176141015, 1520984, 70951509, 0773824, 5839805523 ####[facility] (DEFAULT)[address] [place] [address] 29846 Hematocrit (Bld) [Volume fraction] 34.6 % Normal 33.7-40.4 [facility] Comment on above: Performed By: #### 1 [id number], 9947737554, 1791040082, 6995169, 53419047, 3446780, 2985933307 ####[facility] (DEFAULT)[address] [place] [address] Hemoglobin (Bld) [Mass/Vol] 11.8 g/dL Normal 11.3-15.9 [facility] Comment on above: Performed By: #### 1 [id number], 7936029494, 9400855740, 9373368, 08574142, 1706904, 2078868815 ####[facility] (DEFAULT)[address] [place] [address] Man Diff? Auto Invalid Interpretation Code [facility] Comment on above: Performed By: #### 1 [id number], [id number], 9945415730, 1545053, 16409499, 7986692, 0732156038 ####[facility] (DEFAULT)[address] [place] [address] MCH (RBC) [Entitic mass] 27 pg Normal 24-34 [facility] Comment on above: Performed By: #### 1 [id number], 1009694682, 3289477043, 2271190, 57879797, 9394798, 4577966629 ####[facility] (DEFAULT)[address] [place] [address] 63710 MCHC (RBC) [Mass/Vol] 34 g/dL Normal 26-37 [facility] Comment on above: Performed By: #### 1 [id number], 1312053371, 3606319441, 8467735, 24116370, 8555594, 9811742289 ####[facility] (DEFAULT)[address] [place] [address] 48262 MCV (RBC) [Entitic vol] 79 fL Low 81-100 [facility] Comment on above: Performed By: #### 1 [id number], 0824613632, 0414504032, 7370029, 99887640, 9065200, 5469870070 ####[facility] (DEFAULT)[address] [place] [address] 91560 Platelet 242 x10 Normal 138-427 [facility] Comment on above: Performed By: #### 1 [id number], 9499151775, 5071891337, 0261512, 80007565, 7860911, 8394327413 ####[facility] (DEFAULT)[address] [place] [address] Platelet mean volume (Bld) [Entitic vol] 7.7 fL Normal 6.3-10.2 [facility] Comment on above: Performed By: #### 1 [id number], 9769347746, 7377670178, 1298423, 39797418, 5437934, 5422742990 ####[facility] (DEFAULT)[address] [place] [address] RBC 4.37 x10 Normal 3.70-5.30 [facility] Comment on above: Performed By: #### 1 [id number], 1314952577, 1708714188, 5932965, 30007389, 7096799, 4053916366 ####[facility] (DEFAULT)[address] [place] [address] WBC 14.8 x10 High 3.5-10.5 [facility] Comment on above: Result Comment: Slid e Reviewed Performed By: #### 1 [id number], 5020377831, 9368501030, 8842479, 94703295, 7986356, 1815838591 ####[facility] (DEFAULT)[address] [place] [address] CMP Standardon 08-21-2023 eGFR Non AA >60 Invalid Interpretation Code [facility] Comment on above: Performed By: #### 1 [id number], 3131184126, 7361988431, 8565067, 94663771, 8449349, 1304375676 ####[facility] (DEFAULT)[address] [place] [address] eGFR AA >60 Invalid Interpretation Code [facility] Comment on above: Performed By: #### 1 [id number], 7491080278, 3709175654, 7652665, 68936730, 3495333, 7010491996 ####[facility] (DEFAULT)[address] [place] [address] 08196 Albumin [Mass/Vol] 4.0 g/dL Normal 3.5-5.0 [facility] Comment on above: Performed By: #### 1 [id number], 3752935106, 3745825045, 2757926, 06939815, 5750804, 0716677628 ####[facility] (DEFAULT)[address] [place] [address] Albumin/Globulin [Mass ratio] 1.1 {ratio} Low 1.4-2.6 [facility] Comment on above: Performed By: #### 1 655299277, 0900740367, 9483175054, 0321726, 45817080, 3506509, 0860031445 ####[facility] (DEFAULT)[address] [place] [address] 38383 Alk Phos 108 IU/L High 32-91 [facility] Comment on above: Performed By: #### 1 [id number], 9526916662, 6766240979, 4524801, 16405803, 2164247, 3993830163 ####[facility] (DEFAULT)[address] [place] [address] 30449 ALT [Catalytic activity/Vol] 28.0 U/L Normal 14.0-54.0 [facility] Comment on above: Performed By: #### 1 164248303, 5861709155, 2366123308, 7369575, 94093263, 7302497, 1730658115 ####[facility] (DEFAULT)[address] [place] [address] 78107 Anion gap [Moles/Vol] 13.5 mmol/L Normal 5.0-19.0 [facility] Comment on above: Performed By: #### 1 066579656, 0549839477, 3979703617, 9728854, 26056128, 4445123, 2175134032 ####[facility] (DEFAULT)[address] [place] [address] 20783 AST [Catalytic activity/Vol] 24 U/L Normal 15-41 [facility] Comment on above: Performed By: #### 1 481871369, 2623175157, 3637163872, 5883401, 24978231, 9721320, 0364542562 ####[facility] (DEFAULT)[address] [place] [address] 41028 Bili Total 0.6 mg/dL Normal 0.3-1.2 [facility] Comment on above: Performed By: #### 1 [id number], 9585355164, 3671593996, 1144976, 66581035, 2246518, 7703562301 ####[facility] (DEFAULT)[address] [place] [address] 64724 Calcium [Mass/Vol] 9.3 mg/dL Normal 8.9-10.3 [facility] Comment on above: Performed By: #### 1 490492778, 6704035505, 1757327169, 2718035, 27065727, 3302321, 8879711293 ####[facility] (DEFAULT)[address] [place] [address] 80481 Chloride [Moles/Vol] 104 mmol/L Normal 101-111 [facility] Comment on above: Performed By: #### 1 076312475, 5485183019, 4800014587, 3288705, 93012432, 6082926, 5646920889 ####[facility] (DEFAULT)[address] [place] [address] 09200 CO2 [Moles/Vol] 27 mmol/L Normal 21-32 [facility] Comment on above: Performed By: #### 1 518143475, 4402270736, 4785454135, 0888790, 87952138, 0204175, 3192111395 ####[facility] (DEFAULT)[address] [place] [address] 49490 Creatinine [Mass/Vol] 0.89 mg/dL Normal 0.60-1.30 [facility] Comment on above: Performed By: #### 1 166276293, 8618487647, 1361117587, 3507595, 21142519, 1866301, 4622554390 ####[facility] (DEFAULT)[address] [place] [address] 77173 Globulin (S) [Mass/Vol] 3.5 g/dL Normal 1.5-4.3 [facility] Comment on above: Performed By: #### 1 [id number], 0323585598, 3279468949, 0155354, 02097345, 0331948, 1544705588 ####[facility] (DEFAULT)[address] [place] [address] 28918 Glucose [Mass/Vol] 129.0 mg/dL High 74.0-118.0 [facility] Comment on above: Performed By: #### 1 179453295, 5556890321, 0207386675, 5840135, 88122011, 6107902, 1377364431 ####[facility] (DEFAULT)[address] [place] [address] 39642 Osmolality 289 mOsm/L Invalid Interpretation Code [facility] Comment on above: Performed By: #### 1 821334051, 6267306370, 7576579933, 1246394, 42174158, 9485138, 6785161864 ####[facility] (DEFAULT)[address] [place] [address] 02178 Potassium [Moles/Vol] 3.5 mmol/L Low 3.6-5.1 [facility] Comment on above: Performed By: #### 1 920622581, 1728725776, 8835816603, 4963842, 61102952, 3063770, 8137827458 ####[facility] (DEFAULT)[address] [place] [address] 94664 Protein [Mass/Vol] 7.5 g/dL Normal 6.5-8.1 [facility] Comment on above: Performed By: #### 1 014803662, 9238326011, 5204388070, 1090277, 83200292, 3443522, 6256045188 ####[facility] (DEFAULT)[address] [place] [address] 33119 Sodium [Moles/Vol] 141.0 mmol/L Normal 136.0-144.0 [facility] Comment on above: Performed By: #### 1 [id number], 4428600561, 8870472756, 6246932, 58961345, 1529909, 6347074658 ####[facility] (DEFAULT)[address] [place] [address] 16949 Urea nitrogen [Mass/Vol] 30 mg/dL High 8-26 [facility] Comment on above: Performed By: #### 1 488025432, 0881144296, 7076343121, 4036625, 16495206, 3686168, 3456293584 ####[facility] (DEFAULT)[address] [place] [address] 96291 Urea nitrogen/Creatinine [Mass ratio] 33.7 mg/mg High 4.6-16.2 [facility] Comment on above: Performed By: #### 1 231554899, 6485085488, 2637316466, 7803483, 42913526, 2281504, 9005091134 ####[facility] (DEFAULT)[address] [place] [address] 53916 COVID/Flu/RSV (GeneXpert)on 08-21-2023 Flu A (GXpert COVFLURSV) Negative Normal Negative [facility] Comment on above: Performed By: #### 7 [id number], [id number] ####[facility] (DEFAULT)[address] [place] [address] 89120 Flu B (GXpert COVFLURSV) Negative Normal Negative [facility] Comment on above: Performed By: #### 7 [id number], [id number] ####[facility] (DEFAULT)[address] [place] [address] 13658 RSV (GXpert COVFLURSV) Negative Normal Negative [facility] Comment on above: Performed By: #### 7 [id number], 2334990626 ####[facility] (DEFAULT)[address] [place] [address] 01667 SARS-CoV-2 (COVID-19) RNA HENRRY+probe Ql (Unsp spec) Negative Normal Negative [facility] Comment on above: Result Comment: Perf ormed by PCR methodology. Performed By: #### 7 [id number], [id number] ####[facility] (DEFAULT)[address] [place] [address] 13837 ED Clinical Summaryon 2023 ED Clinical Summary [facility] ED Note - Physicianon 2023 ED Note - Physician [facility] ED Note-Nursingon 08-21-2023 ED Note-Nursing [facility] ED Note-Nursing I went to go medicat e patient. Patient stated I forgot to tell the Dr about the spots under my breast. I informed Dr about patient concern. I went in room with Dr so he can look. [facility] ED Patient Education Noteon 08-21-2023 ED Patient Education Note [facility] ED Patient Summaryon 024 ED Patient Summary Normal [facility] Hospital Extra Blueon 08-21-2023 Tube Collected Yes Invalid Interpretation Code [facility] Comment on above: Performed By: #### 1 [id number], 1901034529, 2153287703, 6671371, 35874982, 6076875, 4137930478 ####[facility] (DEFAULT)[address] [place] [address] 10730 Lactic Acidon 08-21-2023 Lactic Acid 11.6 mg/dL Normal 4.5-19.8 [facility] Comment on above: Performed By: #### 2 [id number] ####[facility] (DEFAULT)[address] [place] [address] 26340 Lipaseon 08-21-2023 Lipase Level 38.0 IU/L Normal 22.0-51.0 [facility] Comment on above: Performed By: #### 1 [id number], 2914102599, 0442502116, 8821045, 00132045, 1194385, 1688752358 ####[facility] (DEFAULT)[address] [place] [address] 80371 TnI HSon 08-21-2023 Troponin I High Sensitivity 3.8 pg/mL Normal <=15.0 [facility] Comment on above: Performed By: #### 1 [id number], 6590547527, 8073916413, 0259833, 69868215, 7234661, 0743867730 ####[facility] (DEFAULT)[address] [place] [address] 68626 Triage Panel 1208-21-2023 Triage Internal Control Pass [facility] Comment on above: Performed By: #### 1 [id number] ####[facility] (DEFAULT)[address] [place] [address] 22749 U Amph Scr Negative [facility] Comment on above: Performed By: #### 1 [id number] ####[facility] (DEFAULT)[address] [place] [address] U Beronica Scr Negative [facility] Comment on above: Performed By: #### 1 [id number] ####[facility] (DEFAULT)[address] [place] [address] 12364 U Benzodia Scr Negative [facility] Comment on above: Performed By: #### 1 [id number] ####[facility] (DEFAULT)[address] [place] [address] 32931 U Cannab Scrn Negative [facility] Comment on above: Performed By: #### 1 [id number] ####[facility] (DEFAULT)[address] [place], [place] [address] U Cocaine Scr Negative [facility] Comment on above: Performed By: #### 1 [id number] ####[facility] (DEFAULT)[address] [place], [place] [address] U Methadone Scr Negative [facility] Comment on above: Performed By: #### 1 [id number] ####[facility] (DEFAULT)[address] [place] [address] 47940 U Methamp Scrn Negative [facility] Comment on above: Performed By: #### 1 [id number] ####[facility] (DEFAULT)[address] [place] [address] 24907 U Opiate Scr Negative [facility] Comment on above: Performed By: #### 1 [id number] ####[facility] (DEFAULT)[address] [place] [address] 84557 U Oxycod Scr Negative [facility] Comment on above: Performed By: #### 1 [id number] ####[facility] (DEFAULT)[address] [place] [address] 73612 U Phencyclidine Scr Negative [facility] Comment on above: Performed By: #### 1 [id number] ####[facility] (DEFAULT)[address] [place] [address] 03956 U Tricyclic Antidepress Scr Negative Normal [facility] Comment on above: Result Comment: Resu lts are to be used only for medical (ie, treatment) purposes only. Positive tests will not be sent out for confirmation.PROFILE?-V MEDTOX Scan? Drugs of Abuse Test System detects drug classes at the following cutoff concentrations:AMP Amphetamine (d-amphetamine): 500 ng/mLBAR Barbituates (Butabital): 200 ng/mLBZO Benzodiazepines (Nordiazepam): 150 ng/mLBUP Buprenorphine (Buprenorphine): 10 ng/mLCOC Cocaine (Benzoylecgonine): 150 ng/mLMAMP Methamphetamine (d-Methamphetamine): 500 ng/mLMTD Methadone (Methadone): 200 ng/mLOPI Opiates (Morphine): 100 ng/mL or 2000 ng/mLOXY Oxycodone (Oxycodone): 100 ng/mLPCP Phencyclidine (Phencyclidine): 25 ng/mLPPX Propoxyphene (Norpropoxyphene): 300 ng/mL THC Cannabinoids (66-vwl-1-carboxy- -THC): 50 ng/mLTCA Tricyclic-Antidepressants (Desipramine): 300 ng/mL Performed By: #### 1 [id number] ####[facility] (DEFAULT)[address] [place] [address] 50204 Urine Source Clean [facility] Comment on above: Performed By: #### 1 [id number] ####[facility] (DEFAULT)[address] [place] [address] 67400 UA w Culture if Ind Standard on 08-21-2023 Breakpoint UA Normal [facility] Comment on above: Performed By: #### 1 [id number] ####[facility] (DEFAULT)[address] [place] [address] 74614 Color (U) Yellow Normal [facility] Comment on above: Performed By: #### 1 [id number] ####[facility] (DEFAULT)[address] [place] [address] 78397 Culture? Not Indicated Invalid Interpretation Code [facility] Comment on above: Result Comment: Resu lt created by rule GL_MAGR_[id number]_UA_[id number] Performed By: #### 1 [id number] ####[facility] (DEFAULT)[address] [place] [address] 04204 Glucose (U) [Mass/Vol] Negative Normal [facility] Comment on above: Performed By: #### 1 [id number] ####[facility] (DEFAULT)[address] [place] [address] 39561 Ketones Ql (U) Negative Normal [facility] Comment on above: Performed By: #### 1 [id number] ####[facility] (DEFAULT)[address] [place] [address] 67843 Micro? Not Indicated Invalid Interpretation Code [facility] Comment on above: Result Comment: Resu lt created by rule GL_MAGR_ADD_UA_MICRO Performed By: #### 1 [id number] ####[facility] (DEFAULT)[address] [place] [address] 50974 UA Bilirubin Negative Normal [facility] Comment on above: Performed By: #### 1 [id number] ####[facility] (DEFAULT)[address] [place] [address] 78042 UA Blood Negative Normal NEGATIVE [facility] Comment on above: Performed By: #### 1 [id number] ####[facility] (DEFAULT)[address] [place] [address] 25892 UA Clarity CLEAR Normal CLEAR [facility] Comment on above: Performed By: #### 1 [id number] ####[facility] (DEFAULT)[address] [place] [address] 91803 UA Leuk Est Negative Normal NEGATIVE [facility] Comment on above: Performed By: #### 1 [id number] ####[facility] (DEFAULT)[address] [place] [address] 23807 UA Nitrite Negative Normal NEGATIVE [facility] Comment on above: Performed By: #### 1 [id number] ####[facility] (DEFAULT)[address] [place] [address] 09834 UA pH 7.5 Normal 5-8 [facility] Comment on above: Performed By: #### 1 [id number] ####[facility] (DEFAULT)[address] [place] [address] 91080 UA Protein Negative Normal NEGATIVE [facility] Comment on above: Performed By: #### 1 [id number] ####[facility] (DEFAULT)[address] [place] [address] 10786 UA Spec Grav 1.015 Normal 1.001-1.035 [facility] Comment on above: Performed By: #### 1 [id number] ####[facility] (DEFAULT)[address] [place] [address] 71203 UA Urobilinogen 1.0 mg/dL Normal 0.2-1.0 [facility] Comment on above: Performed By: #### 1 [id number] ####[facility] (DEFAULT)[address] [place] [address] 11281 Urine Source Clean Catch Normal [facility] Comment on above: Performed By: #### 1 [id number] ####[facility] (DEFAULT)[address] [place] [address] 51718 XR Chest 2 Viewson 4 XR Chest 2 Views Normal [facility] ANES POSTPROC EVALon 024 ANES POSTPROC EVAL Normal [facility] ANES PRE-OPon 08-08-2023 ANES PRE-OP Normal [facility] OPERATIVE NOon 08-08-2023 OPERATIVE NO Normal [facility] NRS18em 08-02-2023 ECG01 Normal [facility] HISTORY PHYSICALon 4 HISTORY PHYSICAL Normal [facility] CNOVon 07-20-2023 CNOV Normal [facility] LUNG DIFFUSION CAPACITY (ESTHER O)on 07-20-2023 [facility] SPIROMETRY WITH DILATOR IF O BSTRUCTEDon 07-20-2023 DLCO (ml/min/mmHg) 18.14 ml/min/mmHg [facility] DLCO/VA (ml/min/mmHg/L) 4.98 ml/min/mmHg/L [facility] DLCOcor (ml/min/mmHg) 19.38 ml/min/mmHg [facility] FNA15-80% PRE (L/S) 1.53 L/S [facility] FEV1 PRE (L) 1.84 L [facility] FEV1/FVC PRE (%) 75 % [facility] FVC PRE (L) 2.46 L [facility] PEF PRE (L/S) 4.63 L/S [facility] VA (L) 3.64 L [facility] CBC With Platelet and Differ entialon 07-01-2023 Basophils (Bld) [#/Vol] 0.0 10*3/uL Normal 0.0-0.2 [facility] Comment on above: Performed By: #### R PPCR #### [facility] [address] [place] [address] Basophils/100 WBC (Bld) 0.2 % Normal [facility] Comment on above: Performed By: #### R PPCR #### [facility] [address] [place] [address] Eosinophils (Bld) [#/Vol] 0.1 10*3/uL Normal 0.0-0.7 [facility] Comment on above: Performed By: #### R PPCR #### [facility] [address] [place] [address] Eosinophils/100 WBC (Bld) 0.3 % Normal [facility] Comment on above: Performed By: #### R PPCR #### [facility] [address] [place] [address] Erythrocyte distribution width (RBC) [Ratio] 13.3 % Normal 11.5-14.5 [facility] Comment on above: Performed By: #### R PPCR #### [facility] [address] [place] [address] Hematocrit (Bld) [Volume fraction] 34.6 % Low 37.0-47.0 [facility] Comment on above: Performed By: #### R PPCR #### [facility] [address] [place] [address] Lymphocytes (Bld) [#/Vol] 0.5 10*3/uL Low 1.0-4.8 [facility] Comment on above: Performed By: #### R PPCR #### [facility] [address] [place] [address] Lymphocytes/100 WBC (Bld) 2.4 % Normal [facility] Comment on above: Performed By: #### R PPCR #### [facility] [address] [place] [address] MCH (RBC) [Entitic mass] 26.9 pg Low 27.0-31.3 [facility] Comment on above: Performed By: #### R PPCR #### [facility] [address] [place] [address] MCHC 33.5 % Normal 33.0-37.0 [facility] Comment on above: Performed By: #### R PPCR #### [facility] [address] [place] [address] MCV (RBC) [Entitic vol] 80.3 fL Normal 79.4-94.8 [facility] Comment on above: Performed By: #### R PPCR #### [facility] [address] [place] [address] Monocytes (Bld) [#/Vol] 0.4 10*3/uL Normal 0.2-0.8 [facility] Comment on above: Performed By: #### R PPCR #### [facility] [address] [place] [address] Monocytes/100 WBC (Bld) 2.3 % Normal [facility] Comment on above: Performed By: #### R PPCR #### [facility] [address] [place] [address] Neutrophils (Bld) [#/Vol] 17.6 10*3/uL Critically high 1.4-6.5 [facility] Comment on above: Performed By: #### R PPCR #### [facility] [address] [place] [address] Neutrophils/100 WBC (Bld) 94.1 % Normal [facility] Comment on above: Performed By: #### R PPCR #### [facility] [address] [place] [address] Platelets (Bld) [#/Vol] 200 10*3/uL Normal 130-400 [facility] Comment on above: Performed By: #### R PPCR #### [facility] [address] [place] [address] RBC (Bld) [#/Vol] 4.31 10*6/uL Normal 4.20-5.40 [facility] Comment on above: Performed By: #### R PPCR #### [facility] [address] [place] [address] WBC (Bld) [#/Vol] 18.7 10*3/uL Critically high 4.8-10.8 [facility] Comment on above: Performed By: #### R PPCR #### [facility] [address] [place] [address] Comprehensive Metabolic Pane l reflex Mgon 07-01-2023 Albumin [Mass/Vol] 3.8 g/dL Normal 3.5-4.6 [facility] Comment on above: Performed By: #### C MPX #### [facility] [address] [place] [address] ALP [Catalytic activity/Vol] 105 U/L Normal 40-130 [facility] Comment on above: Performed By: #### C MPX #### [facility] [address] [place] [address] ALT [Catalytic activity/Vol] 19 U/L Normal 0-33 [facility] Comment on above: Performed By: #### C MPX #### [facility] [address] [place] [address] Anion gap [Moles/Vol] 9 mmol/L Normal 9-15 [facility] Comment on above: Performed By: #### C MPX #### [facility] [address] [place] [address] AST [Catalytic activity/Vol] 15 U/L Normal 0-35 [facility] Comment on above: Performed By: #### C MPX #### [facility] [address] [place] [address] Bilirubin [Mass/Vol] 0.5 mg/dL Normal 0.2-0.7 [facility] Comment on above: Performed By: #### C MPX #### [facility] [address] [place] [address] Calcium [Mass/Vol] 8.9 mg/dL Normal 8.5-9.9 [facility] Comment on above: Performed By: #### C MPX #### [facility] [address] [place] [address] Chloride [Moles/Vol] 106 mmol/L Normal 95-107 [facility] Comment on above: Performed By: #### C MPX #### [facility] [address] [place] [address] CO2 [Moles/Vol] 25 mmol/L Normal 20-31 [facility] Comment on above: Performed By: #### C MPX #### [facility] [address] [place] [address] Creatinine [Mass/Vol] 0.70 mg/dL Normal 0.50-0.90 [facility] Comment on above: Performed By: #### C MPX #### [facility] [address] [place] [address] GFR >60.0 Normal >60 [facility] Comment on above: Result Comment: Erika atric calculator link https://www.kidney.org/professionals/kdoqi/gfr_calculatorped Effective Feb 28, 2022 These results are not intended for use in patients <18 years of age. eGFR results are calculated without a race factor using the 2020 CKD-EPI equation. Careful clinical correlation is recommended, particularly when comparing to results calculated using previous equations. The CKD-EPI equation is less accurate in patients with extremes of muscle mass, extra-renal metabolism of creatinine, excessive creatinine ingestion, or following therapy that affects renal tubular secretion. Performed By: #### C MPX #### [facility] [address] [place] [address] Globulin (S) [Mass/Vol] 2.3 g/dL Normal 2.3-3.5 [facility] Comment on above: Performed By: #### C MPX #### [facility] [address] [place] [address] Glucose [Mass/Vol] 130 mg/dL Critically high 70-[address] [facility] Comment on above: Performed By: #### C MPX #### [facility] [address] [place] [address] Magnesium [Moles/Vol] 4.4 mmol/L Normal 3.4-4.9 [facility] Comment on above: Performed By: #### C MPX #### [facility] [address] [place] [address] Protein [Mass/Vol] 6.1 g/dL Low 6.3-8.0 [facility] Comment on above: Performed By: #### C MPX #### [facility] [address] [place] [address] Sodium [Moles/Vol] 140 mmol/L Normal 135-144 [facility] Comment on above: Performed By: #### C MPX #### [facility] [address] [place] [address] Urea nitrogen [Mass/Vol] 24 mg/dL Critically high 8-23 [facility] Comment on above: Performed By: #### C MPX #### [facility] [address] [place] [address] Hemoglobin and Hematocriton 07-01-2023 Hematocrit (Bld) [Volume fraction] 34.4 % Low 37.0-47.0 [facility] Comment on above: Performed By: #### H H #### [facility] [address] [place] [address] Hemoglobin (Bld) [Mass/Vol] 11.5 g/dL Low 12.0-16.0 [facility] Comment on above: Performed By: #### H H #### [facility] [address] [place] [address] Hematocrit (Bld) [Volume fraction] 35.6 % Low 37.0-47.0 [facility] Comment on above: Performed By: #### H H #### [facility] [address] [place] [address] Hemoglobin (Bld) [Mass/Vol] 11.6 g/dL Low 12.0-16.0 [facility] Comment on above: Performed By: #### H H #### [facility] [address] [place] [address] Performed By: #### R PPCR #### [facility] [address] [place] [address] Hematocrit (Bld) [Volume fraction] 34.5 % Low 37.0-47.0 [facility] Comment on above: Performed By: #### H H #### [facility] [address] [place] [address] Hemoglobin (Bld) [Mass/Vol] 11.6 g/dL Low 12.0-16.0 [facility] Comment on above: Performed By: #### H H #### [facility] [address] [place] [address] CBC With Platelet and Differ entialon 06-30-2023 Basophils (Bld) [#/Vol] 0.0 10*3/uL Normal 0.0-0.2 [facility] Comment on above: Performed By: #### C BCWD #### [facility] [address] [place] [address] Basophils/100 WBC (Bld) 0.1 % Normal [facility] Comment on above: Performed By: #### C BCWD #### [facility] [address] [place] [address] Eosinophils (Bld) [#/Vol] 0.0 10*3/uL Normal 0.0-0.7 [facility] Comment on above: Performed By: #### C BCWD #### [facility] [address] [place] [address] Eosinophils/100 WBC (Bld) 0.0 % Normal [facility] Comment on above: Performed By: #### C BCWD #### [facility] [address] [place] [address] Erythrocyte distribution width (RBC) [Ratio] 13.2 % Normal 11.5-14.5 [facility] Comment on above: Performed By: #### C BCWD #### [facility] [address] [place] [address] Hematocrit (Bld) [Volume fraction] 38.3 % Normal 37.0-47.0 [facility] Comment on above: Performed By: #### C BCWD #### [facility] [address] [place] [address] Hemoglobin (Bld) [Mass/Vol] 12.8 g/dL Normal 12.0-16.0 [facility] Comment on above: Performed By: #### C BCWD #### [facility] [address] [place] [address] Lymphocytes (Bld) [#/Vol] 0.4 10*3/uL Low 1.0-4.8 [facility] Comment on above: Performed By: #### C BCWD #### [facility] [address] [place] [address] Lymphocytes/100 WBC (Bld) 4.9 % Normal [facility] Comment on above: Performed By: #### C BCWD #### [facility] [address] [place] [address] MCH (RBC) [Entitic mass] 26.8 pg Low 27.0-31.3 [facility] Comment on above: Performed By: #### C BCWD #### [facility] [address] [place] [address] MCHC 33.4 % Normal 33.0-37.0 [facility] Comment on above: Performed By: #### C BCWD #### [facility] [address] [place] [address] MCV (RBC) [Entitic vol] 80.1 fL Normal 79.4-94.8 [facility] Comment on above: Performed By: #### C BCWD #### [facility] [address] [place] [address] Monocytes (Bld) [#/Vol] 0.1 10*3/uL Low 0.2-0.8 [facility] Comment on above: Performed By: #### C BCWD #### [facility] [address] [place] [address] Monocytes/100 WBC (Bld) 0.8 % Normal [facility] Comment on above: Performed By: #### C BCWD #### [facility] [address] [place] [address] Neutrophils (Bld) [#/Vol] 7.8 10*3/uL Critically high 1.4-6.5 [facility] Comment on above: Performed By: #### C BCWD #### [facility] [address] [place] [address] Neutrophils/100 WBC (Bld) 94.0 % Normal [facility] Comment on above: Performed By: #### C BCWD #### [facility] [address] [place] [address] Platelets (Bld) [#/Vol] 199 10*3/uL Normal 130-400 [facility] Comment on above: Performed By: #### C BCWD #### [facility] [address] [place] [address] RBC (Bld) [#/Vol] 4.78 10*6/uL Normal 4.20-5.40 [facility] Comment on above: Performed By: #### C BCWD #### [facility] [address] [place] [address] WBC (Bld) [#/Vol] 8.3 10*3/uL Normal 4.8-10.8 [facility] Comment on above: Performed By: #### C BCWD #### [facility] [address] [place] [address] CNPNon 06-30-2023 CNPN Normal [facility] Metabolic Pane l reflex Mgon 06-30-2023 Albumin [Mass/Vol] 4.4 g/dL Normal 3.5-4.6 [facility] Comment on above: Performed By: #### C MPX #### [facility] [address] [place] [address] ALP [Catalytic activity/Vol] 123 U/L Normal 40-130 [facility] Comment on above: Performed By: #### C MPX #### [facility] [address] [place] [address] ALT [Catalytic activity/Vol] 28 U/L Normal 0-33 [facility] Comment on above: Performed By: #### C MPX #### [facility] [address] [place] [address] Anion gap [Moles/Vol] 12 mmol/L Normal 9-15 [facility] Comment on above: Performed By: #### C MPX #### [facility] [address] [place] [address] AST [Catalytic activity/Vol] 26 U/L Normal 0-35 [facility] Comment on above: Performed By: #### C MPX #### [facility] [address] [place] [address] Bilirubin [Mass/Vol] 0.5 mg/dL Normal 0.2-0.7 [facility] Comment on above: Performed By: #### C MPX #### [facility] [address] [place] [address] Calcium [Mass/Vol] 8.9 mg/dL Normal 8.5-9.9 [facility] Comment on above: Performed By: #### C MPX #### [facility] [address] [place] [address] Chloride [Moles/Vol] 102 mmol/L Normal 95-107 [facility] Comment on above: Performed By: #### C MPX #### [facility] [address] [place] [address] CO2 [Moles/Vol] 25 mmol/L Normal 20-31 [facility] Comment on above: Performed By: #### C MPX #### [facility] [address] [place] [address] Creatinine [Mass/Vol] 0.63 mg/dL Normal 0.50-0.90 [facility] Comment on above: Performed By: #### C MPX #### [facility] [address] [place] [address] GFR >60.0 Normal >60 [facility] Comment on above: Result Comment: Erika atric calculator link https://www.kidney.org/professionals/kdoqi/gfr_calculatorped Effective Feb 28, 2022 These results are not intended for use in patients <18 years of age. eGFR results are calculated without a race factor using the 2020 CKD-EPI equation. Careful clinical correlation is recommended, particularly when comparing to results calculated using previous equations. The CKD-EPI equation is less accurate in patients with extremes of muscle mass, extra-renal metabolism of creatinine, excessive creatinine ingestion, or following therapy that affects renal tubular secretion. Performed By: #### C MPX #### [facility] [address] [place] [address] Globulin (S) [Mass/Vol] 2.6 g/dL Normal 2.3-3.5 [facility] Comment on above: Performed By: #### C MPX #### [facility] [address] [place] [address] Glucose [Mass/Vol] 143 mg/dL Critically high 70-[address] [facility] Comment on above: Performed By: #### C MPX #### [facility] [address] [place] [address] Magnesium [Moles/Vol] 3.7 mmol/L Normal 3.4-4.9 [facility] Comment on above: Performed By: #### C MPX #### [facility] [address] [place] [address] Protein [Mass/Vol] 7.0 g/dL Normal 6.3-8.0 [facility] Comment on above: Performed By: #### C MPX #### [facility] [address] [place] [address] Sodium [Moles/Vol] 139 mmol/L Normal 135-144 [facility] Comment on above: Performed By: #### C MPX #### [facility] [address] [place] [address] Urea nitrogen [Mass/Vol] 17 mg/dL Normal 8-23 [facility] Comment on above: Performed By: #### C MPX #### [facility] [address] [place] [address] Hemoglobin and Hematocriton 06-30-2023 Hematocrit (Bld) [Volume fraction] 36.7 % Low 37.0-47.0 [facility] Comment on above: Performed By: #### R PPCR #### [facility] [address] [place] [address] Hemoglobin (Bld) [Mass/Vol] 12.3 g/dL Normal 12.0-16.0 [facility] Comment on above: Performed By: #### R PPCR #### [facility] [address] [place] [address] Hematocrit (Bld) [Volume fraction] 34.6 % Low 37.0-47.0 [facility] Comment on above: Performed By: #### R PPCR #### [facility] [address] [place] [address] Hemoglobin (Bld) [Mass/Vol] 11.8 g/dL Low 12.0-16.0 [facility] Comment on above: Performed By: #### R PPCR #### [facility] [address] [place] [address] Iron Binding Capon 4 % Fe Saturation 17 % Low 20-55 [facility] Iron [Mass/Vol] 50 ug/dL Normal 37-145 [facility] Total Fe Binding Cap 293 ug/dL Normal 250-450 [facility] Unbound Fe Bind Cap 243 ug/dL Normal 112-347 [facility] Comment on above: Result Comment: Perf ormed at [facility], [address] [place] [id number] . ANN (Skin, Hair, Nails)on ANN (Skin, Hair, Nails) ORDER#: [id number] ORDERED BY: MAT SEALS SOURCE: Esophagus COLLECTED: 06/30/23 15:03 ANTIBIOTICS AT RIAN.: RECEIVED : 07/03/23 08:33 ANN (Skin, Hair, Nails) FINAL 07/04/23 09:24 Direct Exam: FUNGAL ELEMENTS SEEN Direct Exam: RARE BUDDING YEAST Performed at [address] [id number] ([phone] Normal [facility] Comment on above: Performed By: #### 7 KOHS #### [facility] [address] [place] [address] Partial Thromboplastin Timeo n 06-30-2023 aPTT Coag (Bld) [Time] 30.2 s Normal 24.4-36.8 [facility] Comment on above: Result Comment: Effe ctive 04/01/2020: Heparin Therapeutic Range: 64.0 ? 98.0 seconds. Performed By: #### R PPCR #### [facility] [address] [place] [address] Phosphoruson 06-30-2023 Phosphate [Mass/Vol] 3.5 mg/dL Normal 2.3-4.8 [facility] Comment on above: Performed By: #### R PPCR #### [facility] [address] [place] [address] Prothrombin Timeon INR Coag (PPP) [Relative time] 1.0 {INR} Normal [facility] Comment on above: Performed By: #### R PPCR #### [facility] [address] [place] [address] PT Coag (PPP) [Time] 13.8 s Normal 12.3-14.9 [facility] Comment on above: Performed By: #### R PPCR #### [facility] [address] [place] [address] CBC With Platelet and Differ entialon 06-29-2023 Basophils (Bld) [#/Vol] 0.1 10*3/uL Normal 0.0-0.2 [facility] Comment on above: Performed By: #### C BCWD #### [facility] [address] [place] [address] Basophils/100 WBC (Bld) 0.6 % Normal [facility] Comment on above: Performed By: #### C BCWD #### [facility] [address] [place] [address] Eosinophils (Bld) [#/Vol] 0.9 10*3/uL Critically high 0.0-0.7 [facility] Comment on above: Performed By: #### C BCWD #### [facility] [address] [place] [address] Eosinophils/100 WBC (Bld) 6.5 % Normal [facility] Comment on above: Performed By: #### C BCWD #### [facility] [address] [place] [address] Erythrocyte distribution width (RBC) [Ratio] 13.3 % Normal 11.5-14.5 [facility] Comment on above: Performed By: #### C BCWD #### [facility] [address] [place] [address] Hematocrit (Bld) [Volume fraction] 41.2 % Normal 37.0-47.0 [facility] Comment on above: Performed By: #### C BCWD #### [facility] [address] [place] [address] Hemoglobin (Bld) [Mass/Vol] 13.2 g/dL Normal 12.0-16.0 [facility] Comment on above: Performed By: #### C BCWD #### [facility] [address] [place] [address] Lymphocytes (Bld) [#/Vol] 3.1 10*3/uL Normal 1.0-4.8 [facility] Comment on above: Performed By: #### C BCWD #### [facility] [address] [place] [address] Lymphocytes/100 WBC (Bld) 22.4 % Normal [facility] Comment on above: Performed By: #### C BCWD #### [facility] [address] [place] [address] MCH (RBC) [Entitic mass] 26.7 pg Low 27.0-31.3 [facility] Comment on above: Performed By: #### C BCWD #### [facility] [address] [place] [address] MCHC 32.0 % Low 33.0-37.0 [facility] Comment on above: Performed By: #### C BCWD #### [facility] [address] [place] [address] MCV (RBC) [Entitic vol] 83.2 fL Normal 79.4-94.8 [facility] Comment on above: Performed By: #### C BCWD #### [facility] [address] [place] [address] Monocytes (Bld) [#/Vol] 1.0 10*3/uL Critically high 0.2-0.8 [facility] Comment on above: Performed By: #### C BCWD #### [facility] [address] [place] [address] Monocytes/100 WBC (Bld) 7.1 % Normal [facility] Comment on above: Performed By: #### C BCWD #### [facility] [address] [place] [address] Neutrophils (Bld) [#/Vol] 8.6 10*3/uL Critically high 1.4-6.5 [facility] Comment on above: Performed By: #### C BCWD #### [facility] [address] [place] [address] Neutrophils/100 WBC (Bld) 63.1 % Normal [facility] Comment on above: Performed By: #### C BCWD #### [facility] [address] [place] [address] Platelets (Bld) [#/Vol] 261 10*3/uL Normal 130-400 [facility] Comment on above: Performed By: #### C BCWD #### [facility] [address] [place] [address] RBC (Bld) [#/Vol] 4.95 10*6/uL Normal 4.20-5.40 [facility] Comment on above: Performed By: #### C BCWD #### [facility] [address] [place] [address] WBC (Bld) [#/Vol] 13.6 10*3/uL Critically high 4.8-10.8 [facility] Comment on above: Performed By: #### C BCWD #### [facility] [address] [place] [address] CT CHEST WO IVCONon 02-01-[address] CHEST WO IVCON Normal [facility] Metabolic Pane sapna 06-29-2023 Albumin [Mass/Vol] 4.7 g/dL Critically high 3.5-4.[address] [facility] Comment on above: Performed By: #### R PPCR #### [facility] [address] [place] [address] ALP [Catalytic activity/Vol] 133 U/L Critically high 40-130 [facility] Comment on above: Performed By: #### R PPCR #### [facility] [address] [place] [address] ALT [Catalytic activity/Vol] 22 U/L Normal 0-33 [facility] Comment on above: Performed By: #### R PPCR #### [facility] [address] [place] [address] Anion gap [Moles/Vol] 13 mmol/L Normal 9-15 [facility] Comment on above: Performed By: #### R PPCR #### [facility] [address] [place] [address] AST [Catalytic activity/Vol] 23 U/L Normal 0-35 [facility] Comment on above: Performed By: #### R PPCR #### [facility] [address] [place] [address] Bilirubin [Mass/Vol] 0.4 mg/dL Normal 0.2-0.7 [facility] Comment on above: Performed By: #### R PPCR #### [facility] [address] [place] [address] Calcium [Mass/Vol] 9.3 mg/dL Normal 8.5-9.9 [facility] Comment on above: Performed By: #### R PPCR #### [facility] [address] [place] [address] Chloride [Moles/Vol] 100 mmol/L Normal 95-107 [facility] Comment on above: Performed By: #### R PPCR #### [facility] [address] [place] [address] CO2 [Moles/Vol] 26 mmol/L Normal 20-31 [facility] Comment on above: Performed By: #### R PPCR #### [facility] [address] [place] [address] Creatinine [Mass/Vol] 0.76 mg/dL Normal 0.50-0.90 [facility] Comment on above: Performed By: #### R PPCR #### [facility] [address] [place] [address] GFR >60.0 Normal >60 [facility] Comment on above: Result Comment: Erika atric calculator link https://www.kidney.org/professionals/kdoqi/gfr_calculatorped Effective Feb 28, 2022 These results are not intended for use in patients <18 years of age. eGFR results are calculated without a race factor using the 2020 CKD-EPI equation. Careful clinical correlation is recommended, particularly when comparing to results calculated using previous equations. The CKD-EPI equation is less accurate in patients with extremes of muscle mass, extra-renal metabolism of creatinine, excessive creatinine ingestion, or following therapy that affects renal tubular secretion. Performed By: #### R PPCR #### [facility] [address] [place] [address] Globulin (S) [Mass/Vol] 3.0 g/dL Normal 2.3-3.5 [facility] Comment on above: Performed By: #### R PPCR #### [facility] [address] [place] [address] Glucose [Mass/Vol] 140 mg/dL Critically high 70-[address] [facility] Comment on above: Performed By: #### R PPCR #### [facility] [address] [place] [address] Potassium [Moles/Vol] 3.9 mmol/L Normal 3.4-4.9 [facility] Comment on above: Performed By: #### R PPCR #### [facility] [address] [place] [address] Protein [Mass/Vol] 7.7 g/dL Normal 6.3-8.0 [facility] Comment on above: Performed By: #### R PPCR #### [facility] [address] [place] [address] Sodium [Moles/Vol] 139 mmol/L Normal 135-144 [facility] Comment on above: Performed By: #### R PPCR #### [facility] [address] [place] [address] Urea nitrogen [Mass/Vol] 21 mg/dL Normal 8-23 [facility] Comment on above: Performed By: #### R PPCR #### [facility] [address] [place] [address] D-Dimer Quanton 06-29-2023 D-Dimer Quant 0.43 mg/L FEU Normal 0.00-0.50 [facility] Comment on above: Result Comment: VTE (DVT or PE) cut-off = 0.50 mg/L FEU Performed By: #### D NICOLA #### [facility] [address] [place] [address] Respiratory Panel Molecular with Covidon 06-29-2023 Adenovirus by PCR Not detected Normal Not Detect [facility] Comment on above: Performed By: #### R PPCR #### [facility] [address] [place] [address] Bordetella parapertussis by PCR Not detected Normal Not Detect [facility] Comment on above: Performed By: #### R PPCR #### [facility] [address] [place] [address] Bordetella pertussis by PCR Not detected Normal Not Detect [facility] Comment on above: Performed By: #### R PPCR #### [facility] [address] [place] [address] Chlamydophilia pneumoniae by PCR Not detected Normal Not Detect [facility] Comment on above: Performed By: #### R PPCR #### [facility] [address] [place] [address] Coronavirus 229E by PCR Not detected Normal Not Detect [facility] Comment on above: Performed By: #### R PPCR #### [facility] [address] [place] [address] Coronavirus HKU1 by PCR Not detected Normal Not Detect [facility] Comment on above: Performed By: #### R PPCR #### [facility] [address] [place] [address] Coronavirus NL63 by PCR Not detected Normal Not Detect [facility] Comment on above: Performed By: #### R PPCR #### [facility] [address] [place] [address] Coronavirus OC43 by PCR Not detected Normal Not Detect [facility] Comment on above: Performed By: #### R PPCR #### [facility] [address] [place] [address] Human Metapneumovirus by PCR Not detected Normal Not Detect [facility] Comment on above: Performed By: #### R PPCR #### [facility] [address] [place] [address] Human Rhinovirus/Enterovirus by PCR Not detected Normal Not Detect [facility] Comment on above: Performed By: #### R PPCR #### [facility] [address] [place] [address] Influenza A by PCR Not detected Normal Not Detect [facility] Comment on above: Performed By: #### R PPCR #### [facility] [address] [place] [address] Influenza B by PCR Not detected Normal Not Detect [facility] Comment on above: Performed By: #### R PPCR #### [facility] [address] [place] [address] Mycoplasma pneumoniae by PCR Not detected Normal Not Detect [facility] Comment on above: Performed By: #### R PPCR #### [facility] [address] [place] [address] Parainfluenza Virus 1 by PCR Not detected Normal Not Detect [facility] Comment on above: Performed By: #### R PPCR #### [facility] [address] [place] [address] Parainfluenza Virus 2 by PCR Not detected Normal Not Detect [facility] Comment on above: Performed By: #### R PPCR #### [facility] [address] [place] [address] Parainfluenza Virus 3 by PCR Not detected Normal Not Detect [facility] Comment on above: Performed By: #### R PPCR #### [facility] [address] [place] [address] Parainfluenza Virus 4 by PCR Not detected Normal Not Detect [facility] Comment on above: Performed By: #### R PPCR #### [facility] [address] [place] [address] Respiratory Syncytial Virus by PCR Not detected Normal Not Detect [facility] Comment on above: Performed By: #### R PPCR #### [facility] [address] [place] [address] SARS-CoV-2 (COVID-19) RNA HENRRY+probe Ql (Unsp spec) Not detected Normal Not Detect [facility] Comment on above: Performed By: #### R PPCR #### [facility] [address] [place] [address] XR CHEST PORTABLEon 06-29-19 XR CHEST PORTABLE EXAMINATION: ONE XRAY VIEW OF THE CHEST 06/29/2023 8:15 pm COMPARISON: None. HISTORY: ORDERING SYSTEM PROVIDED HISTORY: SOB TECHNOLOGIST PROVIDED HISTORY: Reason for exam:->SOB What reading provider will be dictating this exam?->CRC FINDINGS: The lungs are without acute focal process. There is no effusion or pneumothorax. The cardiomediastinal silhouette is without acute process. The osseous structures are without acute process. IMPRESSION: No acute process. Interpreted by: Jefry Gomez MD Signed by: Jefry Gomez MD 06/29/23 Final result Normal [facility] CNPNon 06-20-2023 CNPN Normal [facility] HISTORY PHYSICALon [facility]ORY PHYSICAL [facility] CNOVon 06-16-2023 CNOV Normal [facility] XR MOD BARIUM SWALLOW W SPEE Marilee 06-16-2023 XR MOD BARIUM SWALLOW W SPEECH Normal [facility] CNOVon 06-13-2023 CNOV Normal [facility] Miscellaneouson 06-12-2023 Miscellaneous [id number] Normal [facility] Coding Summaryon 06-08-2023 Coding Summary Normal [facility] Coding Summary Normal [facility] Miscellaneouson 06-08-2023 Miscellaneous [id number]#[id number] [facility] C Bloodon 06-03-2023 C Blood No growth at 5 Days Normal [facility] Comment on above: Performed By: #### 6 [id number] ####[facility] (DEFAULT)[address] [place] [address] Coding Summaryon 06-01-2023 Coding Summary Normal [facility] .Auto Diff 1on 05-30-2023 Auto Mifflin % 6 % Normal -12 [facility] Comment on above: Performed By: #### 6 053242, [id number], 0764188, 41607078, 514647059, 723570762 ####[facility] (DEFAULT)[address] [place] [address] Baso Abs# 0.0 x10 Normal 0.0-0.2 [facility] Comment on above: Performed By: #### 6 968220, 6123487380, 0793694, 87602336, 609208220, 793600766 ####[facility] (DEFAULT)[address] [place] [address] 91474 Basophils/100 WBC (Bld) 0.2 % Normal 0.2-2.0 [facility] Comment on above: Performed By: #### 6 649467, 7378932055, 3017967, 51857080, 802814288, 681798994 ####[facility] (DEFAULT)[address] [place] [address] 21817 Eos Abs# 0.1 x10 Normal 0.0-0.4 [facility] Comment on above: Performed By: #### 6 010226, [id number], 6171724, 01691118, 751357986, 945482848 ####[facility] (DEFAULT)[address] [place] [address] 12727 Eosinophils/100 WBC (Bld) 0.5 % Low 0.9-4.0 [facility] Comment on above: Performed By: #### 6 123165, 7414950691, 9997131, 00945440, 482161322, 572290948 ####[facility] (DEFAULT)[address] [place] [address] 79614 Lymph Abs# 0.7 x10 Low 1.3-2.9 [facility] Comment on above: Performed By: #### 6 425124, 0201392291, 8053262, 97324920, 404979197, 725251767 ####[facility] (DEFAULT)[address] [place] [address] 31952 Lymphocytes/100 WBC (Bld) 6 % Low 14-48 [facility] Comment on above: Performed By: #### 6 155890, 7155020820, 0338322, 01790229, 113032658, 957204066 ####[facility] (DEFAULT)[address] [place] [address] 77822 Mifflin Abs# 0.8 x10 Normal 0.0-0.8 [facility] Comment on above: Performed By: #### 6 952102, 1846954747, 3984511, 97549280, 775377033, 018612253 ####[facility] (DEFAULT)[address] [place] [address] 46190 Neut Abs# 11.4 x10 High 1.5-9.2 [facility] Comment on above: Performed By: #### 6 932537, 9174544224, 5425231, 41460837, 305783263, 828963317 ####[facility] (DEFAULT)[address] [place] [address] Neutrophils/100 WBC (Bld) 88 % Normal 44-88 [facility] Comment on above: Performed By: #### 6 365013, 1524812635, 0458499, 63458725, 743372907, 587922184 ####[facility] (DEFAULT)[address] [place] [address] BMP Standardon 05-30-2023 eGFR Non AA >60 Invalid Interpretation Code [facility] Comment on above: Performed By: #### 6 020862, 5675829643, 0722431, 44626779, 820770898, 995750700 ####[facility] (DEFAULT)[address] [place] [address] eGFR AA >60 Invalid Interpretation Code [facility] Comment on above: Performed By: #### 6 043979, 0071132006, 6760676, 12819163, 610398841, 316515235 ####[facility] (DEFAULT)[address] [place] [address] 29442 Anion gap [Moles/Vol] 11.3 mmol/L Normal 5.0-19.0 [facility] Comment on above: Performed By: #### 6 617825, 8758484746, 7655432, 54847515, 294808243, 650192585 ####[facility] (DEFAULT)[address] [place] [address] 13681 Calcium [Mass/Vol] 8.5 mg/dL Low 8.9-10.3 [facility] Comment on above: Performed By: #### 6 228347, 4437832454, 5320037, 37057037, 026854528, 529600344 ####[facility] (DEFAULT)[address] [place] [address] 57520 Chloride [Moles/Vol] 108 mmol/L Normal 101-111 [facility] Comment on above: Performed By: #### 6 889377, 7151132228, 3426206, 36373007, 539846100, 763933716 ####[facility] (DEFAULT)[address] [place] [address] 05149 CO2 [Moles/Vol] 24 mmol/L Normal 21-32 [facility] Comment on above: Performed By: #### 6 973295, 1810188825, 3506077, 69164316, 760672054, 610848332 ####[facility] (DEFAULT)[address] [place] [address] 59045 Creatinine [Mass/Vol] 0.73 mg/dL Normal 0.60-1.30 [facility] Comment on above: Performed By: #### 6 270057, 5566065977, 0644230, 39713471, 281610929, 537929729 ####[facility] (DEFAULT)[address] [place] [address] 82555 Glucose [Mass/Vol] 95.0 mg/dL Normal 74.0-118.0 [facility] Comment on above: Performed By: #### 6 073992, 0313217928, 8239486, 81913501, 460871231, 605515997 ####[facility] (DEFAULT)[address] [place] [address] 81038 Osmolality 282 mOsm/L Invalid Interpretation Code [facility] Comment on above: Performed By: #### 6 186856, 9979703186, 6257484, 10475338, 603793249, 231240606 ####[facility] (DEFAULT)[address] [place] [address] 85733 Potassium [Moles/Vol] 3.3 mmol/L Low 3.6-5.1 [facility] Comment on above: Performed By: #### 6 082000, 6548302228, 5077566, 13151597, 032914378, 187710304 ####[facility] (DEFAULT)[address] [place] [address] 04322 Sodium [Moles/Vol] 140.0 mmol/L Normal 136.0-144.0 [facility] Comment on above: Performed By: #### 6 583687, 7153362751, 5554946, 88356886, 831601290, 260875272 ####[facility] (DEFAULT)[address] [place] [address] Urea nitrogen [Mass/Vol] 20 mg/dL Normal 8-26 [facility] Comment on above: Performed By: #### 6 156149, 7439597579, 6090233, 73075115, 002132069, 883873071 ####[facility] (DEFAULT)[address] [place] [address] Urea nitrogen/Creatinine [Mass ratio] 27.3 mg/mg High 4.6-16.2 [facility] Comment on above: Performed By: #### 6 948595, 9747216231, 6436951, 20838270, 869469904, 958925885 ####[facility] (DEFAULT)[address] [place] [address] CBC w/ Auto Diffon 4 Erythrocyte distribution width (RBC) [Ratio] 13.6 % Normal 11.5-15.0 [facility] Comment on above: Performed By: #### 6 400492, 6209940252, 4398799, 26262426, 192533199, 238392609 ####[facility] (DEFAULT)[address] [place] [address] Hematocrit (Bld) [Volume fraction] 29.7 % Low 33.7-40.4 [facility] Comment on above: Performed By: #### 6 859284, 0143103392, 9381020, 79826124, 848810110, 187099296 ####[facility] (DEFAULT)[address] [place] [address] Hemoglobin (Bld) [Mass/Vol] 10.1 g/dL Low 11.3-15.9 [facility] Comment on above: Performed By: #### 6 771178, 8763033097, 2033304, 24613801, 352529495, 123142338 ####[facility] (DEFAULT)[address] [place] [address] Man Diff? Auto Invalid Interpretation Code [facility] Comment on above: Performed By: #### 6 683114, 5951392127, 3221160, 14296605, 431415031, 253778967 ####[facility] (DEFAULT)[address] [place] [address] MCH (RBC) [Entitic mass] 28 pg Normal 24-34 [facility] Comment on above: Performed By: #### 6 606259, 7438678339, 6990914, 08949072, 388655056, 565829268 ####[facility] (DEFAULT)[address] [place] [address] MCHC (RBC) [Mass/Vol] 34 g/dL Normal 26-37 [facility] Comment on above: Performed By: #### 6 222264, 5167415046, 5461003, 85094313, 741762143, 856834476 ####[facility] (DEFAULT)[address] [place] [address] MCV (RBC) [Entitic vol] 82 fL Normal 81-100 [facility] Comment on above: Performed By: #### 6 677742, 9550325668, 1757965, 38302647, 658243450, 161851372 ####[facility] (DEFAULT)[address] [place] [address] Platelet 175 x10 Normal 138-427 [facility] Comment on above: Performed By: #### 6 583047, 5914999527, 3420515, 21700878, 200971601, 038741969 ####[facility] (DEFAULT)[address] [place] [address] Platelet mean volume (Bld) [Entitic vol] 8.3 fL Normal 6.3-10.2 [facility] Comment on above: Performed By: #### 6 726145, 9015041641, 0436198, 52046629, 399308185, 373718274 ####[facility] (DEFAULT)[address] [place] [address] RBC 3.61 x10 Low 3.70-5.30 [facility] Comment on above: Performed By: #### 6 088090, 5387830060, 8418549, 08896303, 366531383, 926158845 ####[facility] (DEFAULT)[address] [place] [address] 71384 WBC 13.0 x10 High 3.5-10.5 [facility] Comment on above: Performed By: #### 6 725969, 6877655784, 7672295, 87649805, 992222984, 908160613 ####[facility] (DEFAULT)[address] [place] [address] 44490 CNPNon 05-30-2023 CNPN Normal [facility] Consent Formson 05-30-2023 Consent Forms [id number] Normal [facility] Education Noteon 05-30-2023 Education Note Normal [facility] Free T4on 05-30-2023 Free T4 [Mass/Vol] 1.64 ng/dL High 0.61-1.12 [facility] Comment on above: Performed By: #### 6 931296, 6055268860, 0854866, 67968750, 778034589, 372380488 ####[facility] (DEFAULT)[address] [place] [address] 96948 Inpatient Clinical Summaryon 05-30-2023 Inpatient Clinical Summary Normal [facility] Inpatient Patient Summaryon 05-30-2023 Inpatient Patient Summary Normal [facility] Nutrition Noteon 05-30-2023 Nutrition Note Normal [facility] Pharmacy Noteon 05-30-2023 Pharmacy Note Normal [facility] Procalcitoninon 05-30-2023 Procalcitonin 1.377 ng/mL High 0.500-1.000 [facility] Comment on above: Performed By: #### 6 657441, 4995589198, 3497193, 26114728, 660363494, 446637707 ####[facility] (DEFAULT)[address] [place] [address] 06803 Progress Note - Nurseon Progress Note - Nurse Normal [facility] Progress Note - Nurse Normal [facility] TSH w/ Reflex to FT4on 05-30 TSH Qn 0.02 m[IU]/L Low 0.45-5.33 [facility] Comment on above: Result Comment: Gene ral Population (males and non- females, aged 21-88) 0.45 - 5.33 Females, 1st Trimester 0.05 - 3.70 Females, 2nd Trimester 0.31 - 4.35 Females, 3rd Trimester 0.41 - 5.18 Performed By: #### 6 589000, 4551748187, 2723366, 95763588, 698409029, 468306382 ####[facility] (DEFAULT)[address] [place] [address] .Auto Diff 1on 05-29-2023 Auto Mifflin % 4 % Normal 1-12 [facility] Comment on above: Performed By: #### 2 999153, 8545204821, 1146912, 53697328, 0120655 ####[facility] (DEFAULT)[address] [place] [address] Baso Abs# 0.0 x10 Normal 0.0-0.2 [facility] Comment on above: Performed By: #### 2 482064, 7554889631, 7801661, 68042286, 4475790 ####[facility] (DEFAULT)[address] [place] [address] Basophils/100 WBC (Bld) 0.3 % Normal 0.2-2.0 [facility] Comment on above: Performed By: #### 2 212683, 9383129958, 4510367, 89381929, 8149393 ####[facility] (DEFAULT)[address] [place] [address] Eos Abs# 0.0 x10 Normal 0.0-0.4 [facility] Comment on above: Performed By: #### 2 169079, 5614961705, 8891322, 46800842, 3175571 ####[facility] (DEFAULT)[address] [place] [address] Eosinophils/100 WBC (Bld) 0.3 % Low 0.9-4.0 [facility] Comment on above: Performed By: #### 2 524556, 3252176840, 1223684, 96830523, 6520901 ####[facility] (DEFAULT)[address] [place] [address] Lymph Abs# 0.5 x10 Low 1.3-2.9 [facility] Comment on above: Performed By: #### 2 824799, 6797815950, 3828421, 26613736, 3566309 ####[facility] (DEFAULT)[address] [place] [address] 94600 Lymphocytes/100 WBC (Bld) 4 % Low 14-48 [facility] Comment on above: Performed By: #### 2 029766, 5602186876, 0324516, 14706100, 9343405 ####[facility] (DEFAULT)[address] [place] [address] Mifflin Abs# 0.5 x10 Normal 0.0-0.8 [facility] Comment on above: Performed By: #### 2 029034, 5348148204, 0705125, 71901640, 3912792 ####[facility] (DEFAULT)[address] [place] [address] Neut Abs# 12.5 x10 High 1.5-9.2 [facility] Comment on above: Performed By: #### 2 964016, 0169814815, 6630217, 03685597, 6707854 ####[facility] (DEFAULT)[address] [place] [address] Neutrophils/100 WBC (Bld) 92 % High 44-88 [facility] Comment on above: Performed By: #### 2 988341, 1947870447, 5790727, 89454039, 8543938 ####[facility] (DEFAULT)[address] [place] [address] .QC SARS-CoV-2 (COVID-19)/Fl u/RSV (GeneXpert)on 05-29-2023 Internal Control Pass Normal [facility] Comment on above: Order Comment: Order ed by Discern.[[id number]] Performed By: #### 7 [id number], [id number] ####[facility] (DEFAULT)[address] [place] [address] CBC w/ Auto Diffon 4 Erythrocyte distribution width (RBC) [Ratio] 13.8 % Normal 11.5-15.0 [facility] Comment on above: Performed By: #### 2 714766, 1665279614, 4965393, 12438526, 1539605 ####[facility] (DEFAULT)[address] [place] [address] Hematocrit (Bld) [Volume fraction] 35.1 % Normal 33.7-40.4 [facility] Comment on above: Performed By: #### 2 667240, 8893186021, 8745746, 23292987, 0074037 ####[facility] (DEFAULT)[address] [place] [address] Hemoglobin (Bld) [Mass/Vol] 11.7 g/dL Normal 11.3-15.9 [facility] Comment on above: Performed By: #### 2 084429, 1857247442, 0221934, 89258508, 2579173 ####[facility] (DEFAULT)[address] [place] [address] Man Diff? Auto Invalid Interpretation Code [facility] Comment on above: Performed By: #### 2 033167, 7954751292, 5393352, 92164515, 4566736 ####[facility] (DEFAULT)[address] [place] [address] MCH (RBC) [Entitic mass] 27 pg Normal 24-34 [facility] Comment on above: Performed By: #### 2 831660, 7823111814, 5204735, 10553166, 1330358 ####[facility] (DEFAULT)[address] [place] [address] MCHC (RBC) [Mass/Vol] 33 g/dL Normal 26-37 [facility] Comment on above: Performed By: #### 2 828383, 8338459835, 4103580, 78678537, 9918341 ####[facility] (DEFAULT)[address] [place] [address] MCV (RBC) [Entitic vol] 82 fL Normal 81-100 [facility] Comment on above: Performed By: #### 2 671049, 8303559845, 2335212, 41326987, 5326687 ####[facility] (DEFAULT)[address] [place] [address] Platelet 224 x10 Normal 138-427 [facility] Comment on above: Performed By: #### 2 035713, 4064750253, 5933511, 78025616, 4026534 ####[facility] (DEFAULT)[address] [place] [address] Platelet mean volume (Bld) [Entitic vol] 8.3 fL Normal 6.3-10.2 [facility] Comment on above: Performed By: #### 2 781154, 5786403772, 8244113, 43039612, 5941774 ####[facility] (DEFAULT)[address] [place] [address] RBC 4.28 x10 Normal 3.70-5.30 [facility] Comment on above: Performed By: #### 2 473832, 7013985035, 8416599, 42118179, 3392410 ####[facility] (DEFAULT)[address] [place] [address] WBC 13.6 x10 High 3.5-10.5 [facility] Comment on above: Result Comment: Slid e Reviewed Performed By: #### 2 946765, 3499322368, 8572902, 21549911, 1674988 ####[facility] (DEFAULT)[address] [place] [address] CMP Standardon 05-29-2023 eGFR Non AA 58 mL/min/1.73m2 Invalid Interpretation Code [facility] Comment on above: Performed By: #### 2 813902, 9423821878, 1579861, 74553025, 5536896 ####[facility] (DEFAULT)[address] [place] [address] eGFR AA >60 Invalid Interpretation Code [facility] Comment on above: Performed By: #### 2 322921, 1232858895, 7984923, 88596051, 2395541 ####[facility] (DEFAULT)[address] [place] [address] 14348 Albumin [Mass/Vol] 4.2 g/dL Normal 3.5-5.0 [facility] Comment on above: Performed By: #### 2 726655, 0949800930, 8251778, 52899167, 7999172 ####[facility] (DEFAULT)[address] [place] [address] Albumin/Globulin [Mass ratio] 1.3 {ratio} Low 1.4-2.6 [facility] Comment on above: Performed By: #### 2 767356, 1592272324, 6062601, 43997542, 4046841 ####[facility] (DEFAULT)[address] [place] [address] Alk Phos 108 IU/L High 32-91 [facility] Comment on above: Performed By: #### 2 358858, 7475668247, 8411285, 42921746, 7660182 ####[facility] (DEFAULT)[address] [place] [address] 95708 ALT [Catalytic activity/Vol] 44.0 U/L Normal 14.0-54.0 [facility] Comment on above: Performed By: #### 2 243932, 2965585916, 7970358, 24935748, 4835799 ####[facility] (DEFAULT)[address] [place] [address] 38462 Anion gap [Moles/Vol] 14.1 mmol/L Normal 5.0-19.0 [facility] Comment on above: Performed By: #### 2 873975, 3224142953, 1992937, 33877283, 8735620 ####[facility] (DEFAULT)[address] [place] [address] 98185 AST [Catalytic activity/Vol] 40 U/L Normal 15-41 [facility] Comment on above: Performed By: #### 2 438443, 4259721701, 4902842, 17092358, 9213958 ####[facility] (DEFAULT)[address] [place] [address] 92860 Bili Total 0.9 mg/dL Normal 0.3-1.2 [facility] Comment on above: Performed By: #### 2 907439, 9733367388, 6632879, 12657046, 4110997 ####[facility] (DEFAULT)[address] [place] [address] 58001 Calcium [Mass/Vol] 8.8 mg/dL Low 8.9-10.3 [facility] Comment on above: Performed By: #### 2 797895, 3941055461, 4260620, 98132650, 8741685 ####[facility] (DEFAULT)[address] [place] [address] 97040 Chloride [Moles/Vol] 105 mmol/L Normal 101-111 [facility] Comment on above: Performed By: #### 2 276713, 6819911695, 8642806, 39731215, 5972885 ####[facility] (DEFAULT)[address] [place] [address] 89153 CO2 [Moles/Vol] 23 mmol/L Normal 21-32 [facility] Comment on above: Performed By: #### 2 146131, 4897397971, 1088375, 61264397, 8000221 ####[facility] (DEFAULT)[address] [place] [address] 28189 Creatinine [Mass/Vol] 0.97 mg/dL Normal 0.60-1.30 [facility] Comment on above: Performed By: #### 2 477185, 8767163355, 3795060, 91246386, 7572235 ####[facility] (DEFAULT)[address] [place] [address] 32572 Globulin (S) [Mass/Vol] 3.1 g/dL Normal 1.5-4.3 [facility] Comment on above: Performed By: #### 2 700123, [id number], 7615911, 82027466, 6465290 ####[facility] (DEFAULT)[address] [place] [address] 76976 Glucose [Mass/Vol] 128.0 mg/dL High 74.0-118.0 [facility] Comment on above: Performed By: #### 2 998805, [id number], 3713356, 66388216, 2640592 ####[facility] (DEFAULT)[address] [place] [address] 26222 Osmolality 284 mOsm/L Invalid Interpretation Code [facility] Comment on above: Performed By: #### 2 347087, [id number], 3453047, 63485472, 2513818 ####[facility] (DEFAULT)[address] [place] [address] 32783 Potassium [Moles/Vol] 3.1 mmol/L Low 3.6-5.1 [facility] Comment on above: Performed By: #### 2 708667, 4972327506, 1118701, 84216336, 7376186 ####[facility] (DEFAULT)[address] [place] [address] 55182 Protein [Mass/Vol] 7.3 g/dL Normal 6.5-8.1 [facility] Comment on above: Performed By: #### 2 717924, 3829400679, 0192236, 60809294, 1768307 ####[facility] (DEFAULT)[address] [place] [address] 05881 Sodium [Moles/Vol] 139.0 mmol/L Normal 136.0-144.0 [facility] Comment on above: Performed By: #### 2 255749, [id number], 8819130, 49477019, 7261674 ####[facility] (DEFAULT)[address] [place] [address] 30943 Urea nitrogen [Mass/Vol] 26 mg/dL Normal 8-26 [facility] Comment on above: Performed By: #### 2 759609, 0650514962, 5819191, 99766454, 4425872 ####[facility] (DEFAULT)[address] [place] [address] 43500 Urea nitrogen/Creatinine [Mass ratio] 26.8 mg/mg High 4.6-16.2 [facility] Comment on above: Performed By: #### 2 171703, 1022232204, 4932916, 42361899, 1180632 ####[facility] (DEFAULT)[address] [place] [address] COVID/Flu/RSV (GeneXpert)on 05-29-2023 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 Invalid Interpretation Code [facility] Comment on above: Performed By: #### 7 [id number], [id number] ####[facility] (DEFAULT)[address] [place] [address] Flu A (GXpert COVFLURSV) Negative Normal Negative [facility] Comment on above: Performed By: #### 7 [id number], [id number] ####[facility] (DEFAULT)[address] [place] [address] Flu B (GXpert COVFLURSV) Negative Normal Negative [facility] Comment on above: Performed By: #### 7 [id number], [id number] ####[facility] (DEFAULT)[address] [place] [address] Group care resident? Unknown Invalid Interpretation Code [facility] Comment on above: Performed By: #### 7 [id number], [id number] ####[facility] (DEFAULT)[address] [place] [address] In ICU? Unknown Invalid Interpretation Code [facility] Comment on above: Performed By: #### 7 [id number], [id number] ####[facility] (DEFAULT)[address] [place] [address] status? Not Invalid Interpretation Code [facility] Comment on above: Performed By: #### 7 [id number], [id number] ####[facility] (DEFAULT)[address] [place] [address] RSV (GXpert COVFLURSV) Negative Normal Negative [facility] Comment on above: Performed By: #### 7 [id number], [id number] ####[facility] (DEFAULT)[address] [place] [address] SARS-CoV-2 (COVID-19) RNA HENRRY+probe Ql (Unsp spec) Negative Normal Negative [facility] Comment on above: Result Comment: Perf ormed by PCR methodology. Performed By: #### 7 [id number], [id number] ####[facility] (DEFAULT)[address] [place] [address] SARS-CoV-2 (COVID-19) RNA HENRRY+probe Ql (Unsp spec) Unknown Invalid Interpretation Code [facility] Comment on above: Performed By: #### 7 [id number], [id number] ####[facility] (DEFAULT)[address] [place] [address] Symptomatic as defined by CDC? Unknown Invalid Interpretation Code [facility] Comment on above: Performed By: #### 7 [id number], [id number] ####[facility] (DEFAULT)[address] [place] [address] Abdomen/Pelvis w/ Contras ton 05-29-2023 CT Abdomen/Pelvis w/ Contrast Normal [facility] ED Clinical Summaryon 2023 ED Clinical Summary Normal [facility] ED Note - Physicianon 2023 ED Note - Physician [facility] ED Patient Education Noteon 05-29-2023 ED Patient Education Note [facility] ED Patient Summaryon 024 ED Patient Summary Normal [facility] Lactic Acidon 05-29-2023 Lactic Acid 12.2 mg/dL Normal 4.5-19.8 [facility] Comment on above: Performed By: #### 2 [id number] ####[facility] (DEFAULT)[address] [place] [address] 26784 Lipaseon 05-29-2023 Lipase Level 31.0 IU/L Normal 22.0-51.0 [facility] Comment on above: Performed By: #### 2 582150, [id number], 0493695, 84880468, 9632414 ####[facility] (DEFAULT)[address] [place] [address] 36386 Magnesiumon 05-29-2023 Magnesium [Mass/Vol] 1.75 mg/dL Low 1.80-2.50 [facility] Comment on above: Performed By: #### 2 231226, [id number], 6823212, 59853012, 7046577 ####[facility] (DEFAULT)[address] [place] [address] Progress Note - Nurseon 01-0 Progress Note - Nurse [facility] UA Dlwex5me 05-29-2023 UA Bacteria None [facility] Comment on above: Order Comment: Urina lysis Microscopic order added on by Communication Intelligence Expert Rules system. Performed By: #### 1 [id number], [id number] ####[facility] (DEFAULT)[address] [place] [address] 35244 UA RBC None [facility] Comment on above: Order Comment: Urina lysis Microscopic order added on by Communication Intelligence Expert Rules system. Performed By: #### 1 [id number], [id number] ####[facility] (DEFAULT)[address] [place] [address] UA Squam Epi Few [facility] Comment on above: Order Comment: Urina lysis Microscopic order added on by Communication Intelligence Expert Rules system. Performed By: #### 1 [id number], [id number] ####[facility] (DEFAULT)[address] [place] [address] 63810 UA WBC 0-2 [facility] Comment on above: Order Comment: Urina lysis Microscopic order added on by Communication Intelligence Expert Rules system. Performed By: #### 1 [id number], [id number] ####[facility] (DEFAULT)[address] [place] [address] 92208 UA w Culture if Ind Standard on 05-29-2023 Breakpoint UA [facility] Comment on above: Performed By: #### 1 [id number], [id number] ####[facility] (DEFAULT)[address] [place] [address] Color (U) Yellow [facility] Comment on above: Performed By: #### 1 [id number], [id number] ####[facility] (DEFAULT)[address] [place] [address] Culture? Not Indicated Invalid Interpretation Code [facility] Comment on above: Result Comment: Resu lt created by rule GL_MAGR_ADD_UA_CULT Result created by rule GL_MAGR_ADD_UA_CULT Result created by rule GL_MAGR_ADD_UA_CULT1 Performed By: #### 1 [id number], [id number] ####[facility] (DEFAULT)[address] [place] [address] Glucose (U) [Mass/Vol] Negative Normal [facility] Comment on above: Performed By: #### 1 [id number], 58590855 ####[facility] (DEFAULT)[address] [place] [address] 33788 Ketones Ql (U) 40 Normal [facility] Comment on above: Performed By: #### 1 [id number], [id number] ####[facility] (DEFAULT)[address] [place] [address] Micro? Indicated Invalid Interpretation Code [facility] Comment on above: Result Comment: Resu lt created by rule GL_MAGR_ADD_UA_MICRO Performed By: #### 1 [id number], [id number] ####[facility] (DEFAULT)[address] [place] [address] UA Bilirubin Negative Normal [facility] Comment on above: Performed By: #### 1 [id number], 55007102 ####[facility] (DEFAULT)[address] [place] [address] 00836 UA Blood Negative Normal [place] Comment on above: Performed By: #### 1 [id number], [id number] ####[facility] (DEFAULT)[address] [place] [address] 82563 UA Clarity CLEAR Normal CLEAR [facility] Comment on above: Performed By: #### 1 [id number], [id number] ####[facility] (DEFAULT)[address] [place] [address] 60055 UA Leuk Est SMALL Abnormal NEGATIVE [facility] Comment on above: Performed By: #### 1 [id number], [id number] ####[facility] (DEFAULT)[address] [place] [address] 87823 UA Nitrite Negative Normal NEGATIVE [facility] Comment on above: Performed By: #### 1 [id number], [id number] ####[facility] (DEFAULT)[address] [place] [address] 70787 UA pH 6.5 Normal 5-8 [facility] Comment on above: Performed By: #### 1 [id number], 36653419 ####[facility] (DEFAULT)[address] [place] [address] 73183 UA Protein Negative Normal NEGATIVE [facility] Comment on above: Performed By: #### 1 [id number], [id number] ####[facility] (DEFAULT)[address] [place] [address] 24592 UA Spec Grav 1.020 Normal 1.001-1.035 [facility] Comment on above: Performed By: #### 1 [id number], [id number] ####[facility] (DEFAULT)[address] [place] [address] 97514 UA Urobilinogen 0.2 mg/dL Normal 0.2-1.0 [facility] Comment on above: Performed By: #### 1 [id number], [id number] ####[facility] (DEFAULT)[address] [place] [address] 11740 Urine Source Clean Catch Normal [facility] Comment on above: Performed By: #### 1 [id number], [id number] ####[facility] (DEFAULT)[address] [place] [address] 70919 .Auto Diff 05-28-2023 Auto Mifflin % 5 % Normal 12 [facility] Comment on above: Performed By: #### 1 [id number], 4392752194, 8257983, 12420678, 2141404106 ####[facility] (DEFAULT)[address] [place] [address] 35453 Baso Abs# 0.0 x10 Normal 0.0-0.2 [facility] Comment on above: Performed By: #### 1 191862153, 4014848416, 8074927, 99990169, 8109383748 ####[facility] (DEFAULT)[address] [place] [address] Basophils/100 WBC (Bld) 0.0 % Low 0.2-2.0 [facility] Comment on above: Performed By: #### 1 [id number], 3540898086, 2343825, 78597518, 5727926047 ####[facility] (DEFAULT)[address] [place] [address] 48938 Eos Abs# 0.0 x10 Normal 0.0-0.4 [facility] Comment on above: Performed By: #### 1 452290258, 6004984236, 0690920, 27862001, 9630825278 ####[facility] (DEFAULT)[address] [place] [address] 93780 Eosinophils/100 WBC (Bld) 0.1 % Low 0.9-4.0 [facility] Comment on above: Performed By: #### 1 220209266, 3708467118, 0092826, 32271367, 4368255306 ####[facility] (DEFAULT)[address] [place] [address] 55137 Lymph Abs# 0.2 x10 Low 1.3-2.9 [facility] Comment on above: Performed By: #### 1 522842138, 6387175546, 2563332, 04976290, 9340554427 ####[facility] (DEFAULT)[address] [place] [address] 00983 Lymphocytes/100 WBC (Bld) 1 % Low 14-48 [facility] Comment on above: Performed By: #### 1 [id number], 8022467653, 5660133, 56006879, 5068796493 ####[facility] (DEFAULT)[address] [place] [address] 17435 Mifflin Abs# 0.7 x10 Normal 0.0-0.8 [facility] Comment on above: Performed By: #### 1 [id number], 8481446209, 0226872, 85998601, 0038768335 ####[facility] (DEFAULT)[address] [place] [address] 10819 Neut Abs# 14.0 x10 High 1.5-9.2 [facility] Comment on above: Performed By: #### 1 [id number], 4780462230, 4112978, 85748634, 8909332512 ####[facility] (DEFAULT)[address] [place] [address] Neutrophils/100 WBC (Bld) 94 % High 44-88 [facility] Comment on above: Performed By: #### 1 [id number], 1497849582, 1932891, 90511446, 5190446230 ####[facility] (DEFAULT)[address] [place] [address] .QC SARS-CoV-2 (COVID-19)/Fl u/RSV (GeneXpert)on 05-28-2023 Internal Control Pass Normal [facility] Comment on above: Order Comment: Order ed by Rich.[[email or web address]] Performed By: #### 7 [id number], [id number] ####[facility] (DEFAULT)[address] [place] [address] CBC w/ Auto Diffon 3 Erythrocyte distribution width (RBC) [Ratio] 13.7 % Normal 11.5-15.0 [facility] Comment on above: Performed By: #### 1 120335252, 9832321634, 8458759, 04022261, 0034534440 ####[facility] (DEFAULT)[address] [place] [address] Hematocrit (Bld) [Volume fraction] 35.5 % Normal 33.7-40.4 [facility] Comment on above: Performed By: #### 1 752363555, 6190494334, 1555170, 22235096, 5226573920 ####[facility] (DEFAULT)[address] [place] [address] Hemoglobin (Bld) [Mass/Vol] 11.9 g/dL Normal 11.3-15.9 [facility] Comment on above: Performed By: #### 1 560633738, 3071089016, 6878337, 39806525, 3602242632 ####[facility] (DEFAULT)[address] [place] [address] Man Diff? Auto Invalid Interpretation Code [facility] Comment on above: Performed By: #### 1 [id number], 3044421274, 1209856, 72929448, 0405039417 ####[facility] (DEFAULT)[address] [place] [address] MCH (RBC) [Entitic mass] 27 pg Normal 24-34 [facility] Comment on above: Performed By: #### 1 158220673, 5069010618, 3708775, 54051424, 7022973889 ####[facility] (DEFAULT)[address] [place] [address] MCHC (RBC) [Mass/Vol] 34 g/dL Normal 26-37 [facility] Comment on above: Performed By: #### 1 084644232, 5310265942, 8601479, 58375790, 1671477209 ####[facility] (DEFAULT)[address] [place] [address] MCV (RBC) [Entitic vol] 82 fL Normal 81-100 [facility] Comment on above: Performed By: #### 1 306005429, 8720701311, 2672301, 75306905, 4697757868 ####[facility] (DEFAULT)[address] [place] [address] Platelet 218 x10 Normal 138-427 [facility] Comment on above: Performed By: #### 1 [id number], 7825614487, 0435852, 75639577, 1709358320 ####[facility] (DEFAULT)[address] [place] [address] Platelet mean volume (Bld) [Entitic vol] 8.0 fL Normal 6.3-10.2 [facility] Comment on above: Performed By: #### 1 [id number], 8269235309, 6910901, 59873334, 7144241541 ####[facility] (DEFAULT)[address] [place] [address] RBC 4.34 x10 Normal 3.70-5.30 [facility] Comment on above: Performed By: #### 1 633033295, 5912570959, 9822509, 40374238, 9135674770 ####[facility] (DEFAULT)[address] [place] [address] WBC 14.9 x10 High 3.5-10.5 [facility] Comment on above: Result Comment: Slid e Reviewed Performed By: #### 1 [id number], 8947932161, 6605810, 34800180, 2805797073 ####[facility] (DEFAULT)[address] [place] [address] CMP Standardon 05-28-2023 eGFR Non AA >60 Invalid Interpretation Code [facility] Comment on above: Performed By: #### 1 [id number], 1832989234, 8609796, 08940241, 6832528034 ####[facility] (DEFAULT)[address] [place] [address] eGFR AA >60 Invalid Interpretation Code [facility] Comment on above: Performed By: #### 1 [id number], 8495859780, 8782249, 36207296, 4952990086 ####[facility] (DEFAULT)[address] [place] [address] Albumin [Mass/Vol] 4.3 g/dL Normal 3.5-5.0 [facility] Comment on above: Performed By: #### 1 [id number], 4606743153, 7129032, 88143574, 6132917760 ####[facility] (DEFAULT)[address] [place] [address] Albumin/Globulin [Mass ratio] 1.4 {ratio} Normal 1.4-2.6 [facility] Comment on above: Performed By: #### 1 781375095, 4738433086, 7843036, 84875554, 3644616351 ####[facility] (DEFAULT)[address] [place] [address] Alk Phos 109 IU/L High 32-91 [facility] Comment on above: Performed By: #### 1 527133493, 1002213310, 5175999, 71368915, 4697468187 ####[facility] (DEFAULT)[address] [place] [address] 65447 ALT [Catalytic activity/Vol] 37.0 U/L Normal 14.0-54.0 [facility] Comment on above: Performed By: #### 1 048503267, 5259260027, 5202730, 58787075, 9586019629 ####[facility] (DEFAULT)[address] [place] [address] 22441 Anion gap [Moles/Vol] 13.5 mmol/L Normal 5.0-19.0 [facility] Comment on above: Performed By: #### 1 979561786, 2803405411, 1905093, 28795574, 8605873767 ####[facility] (DEFAULT)[address] [place] [address] 82700 AST [Catalytic activity/Vol] 43 U/L High 15-41 [facility] Comment on above: Performed By: #### 1 811601734, 5045310845, 7281011, 84905657, 9756045854 ####[facility] (DEFAULT)[address] [place] [address] 37994 Bili Total 0.8 mg/dL Normal 0.3-1.2 [facility] Comment on above: Performed By: #### 1 127811802, 3008849635, 4846747, 08961313, 9849853956 ####[facility] (DEFAULT)[address] [place] [address] 40937 Calcium [Mass/Vol] 9.1 mg/dL Normal 8.9-10.3 [facility] Comment on above: Performed By: #### 1 328049772, 0523119370, 2216094, 15979845, 3856357157 ####[facility] (DEFAULT)[address] [place] [address] 13569 Chloride [Moles/Vol] 104 mmol/L Normal 101-111 [facility] Comment on above: Performed By: #### 1 423793906, 4925456985, 0113205, 89758376, 8632645268 ####[facility] (DEFAULT)[address] [place] [address] 96669 CO2 [Moles/Vol] 26 mmol/L Normal 21-32 [facility] Comment on above: Performed By: #### 1 942327034, 0020622291, 3965280, 35237940, 1560569391 ####[facility] (DEFAULT)[address] [place] [address] 02204 Creatinine [Mass/Vol] 0.89 mg/dL Normal 0.60-1.30 [facility] Comment on above: Performed By: #### 1 194259689, 5435170046, 3689606, 08762239, 6662266485 ####[facility] (DEFAULT)[address] [place] [address] 64177 Globulin (S) [Mass/Vol] 3.0 g/dL Normal 1.5-4.3 [facility] Comment on above: Performed By: #### 1 226211396, 8519467523, 8023400, 96731283, 1993502381 ####[facility] (DEFAULT)[address] [place] [address] 80453 Glucose [Mass/Vol] 127.0 mg/dL High 74.0-118.0 [facility] Comment on above: Performed By: #### 1 696484675, 8362568153, 2777568, 22935972, 9914836066 ####[facility] (DEFAULT)[address] [place] [address] 71052 Osmolality 286 mOsm/L Invalid Interpretation Code [facility] Comment on above: Performed By: #### 1 342479457, 7019318378, 3215825, 18648340, 8809844982 ####[facility] (DEFAULT)[address] [place] [address] 91802 Potassium [Moles/Vol] 3.5 mmol/L Low 3.6-5.1 [facility] Comment on above: Performed By: #### 1 081651902, 1687973500, 4136828, 99397241, 6582058050 ####[facility] (DEFAULT)[address] [place] [address] 17020 Protein [Mass/Vol] 7.3 g/dL Normal 6.5-8.1 [facility] Comment on above: Performed By: #### 1 059890362, 3312284012, 4189814, 90002179, 9576109690 ####[facility] (DEFAULT)[address] [place] [address] 29086 Sodium [Moles/Vol] 140.0 mmol/L Normal 136.0-144.0 [facility] Comment on above: Performed By: #### 1 663164837, 7446482144, 8945127, 94342168, 2861705385 ####[facility] (DEFAULT)[address] [place] [address] 79678 Urea nitrogen [Mass/Vol] 26 mg/dL Normal 8-26 [facility] Comment on above: Performed By: #### 1 187355711, 5773181585, 2282748, 68831454, 3303151725 ####[facility] (DEFAULT)[address] [place] [address] 92587 Urea nitrogen/Creatinine [Mass ratio] 29.2 mg/mg High 4.6-16.2 [facility] Comment on above: Performed By: #### 1 489417293, 8184656198, 1037598, 10589413, 9512776648 ####[facility] (DEFAULT)[address] [place] [address] 56361 COVID/Flu/RSV (GeneXpert)on 05-28-2023 Flu A (GXpert COVFLURSV) Negative Normal Negative [facility] Comment on above: Performed By: #### 7 [id number], [id number] ####[facility] (DEFAULT)[address] [place] [address] 46600 Flu B (GXpert COVFLURSV) Negative Normal Negative [facility] Comment on above: Performed By: #### 7 [id number], 1920689544 ####[facility] (DEFAULT)[address] [place] [address] 32780 RSV (GXpert COVFLURSV) Negative Normal Negative [facility] Comment on above: Performed By: #### 7 471383861, 4290797675 ####[facility] (DEFAULT)[address] [place] [address] SARS-CoV-2 (COVID-19) RNA HENRRY+probe Ql (Unsp spec) Negative Normal Negative [facility] Comment on above: Result Comment: Perf ormed by PCR methodology. Performed By: #### 7 [id number], [id number] ####[facility] (DEFAULT)[address] [place] [address] 00407 ED Clinical Summaryon 2022 ED Clinical Summary Normal [facility] ED Note - Physicianon 2022 ED Note - Physician Normal [facility] ED Note - Physician Normal [facility] ED Note-Nursingon 05-28-2023 ED Note-Nursing [facility] ED Patient Education Noteon 05-28-2023 ED Patient Education Note Normal [facility] ED Patient Summaryon 023 ED Patient Summary Normal [facility] Extra Blueon 05-28-2023 Tube Collected Yes Invalid Interpretation Code [facility] Comment on above: Performed By: #### 1 [id number], 3026374773, 8484471, 95196050, 2662096978 ####[facility] (DEFAULT)[address] [place] [address] 29461 Lactic Acidon 05-28-2023 Lactic Acid 8.8 mg/dL Normal 4.5-19.8 [facility] Comment on above: Performed By: #### 2 014120 ####[facility] (DEFAULT)[address] [place] [address] 97872 TnI HSon 05-28-2023 Troponin I High Sensitivity 7.7 pg/mL Normal <=15.0 [facility] Comment on above: Performed By: #### 5 [id number] ####[facility] (DEFAULT)[address] [place] [address] 92294 CNPNon 05-24-2023 CNPN Normal [facility] ANES POSTPROC EVALon 023 ANES POSTPROC EVAL Normal [facility] ANES PRE-OPon 05-18-2023 ANES PRE-OP Normal [facility] HISTORY PHYSICALon 12-21-202 3 HISTORY PHYSICAL Normal [facility] NURSING PROGon 05-18-2023 NURSING PROG [facility] SURGICAL PATHOLOGYon 023 CASE REPORT [facility] Comment on above: Order Comment: Speci moise Type: TISSUE SPECIMENOrdering Facility: [facility] Address: [address] [place] [address] Result Comment: Surg ical Pathology Report Case: [id number] Provider: Sharri Conteh DO Collected: 05/18/2023 09:02 AMOrdering Location: Procedures Received: 05/18/2023 10:55 AMPathologist: Emery Gonzalez MDSpecimens: A) - SMALL INTESTINE BIOPSY B) - STOMACH BIOPSY Performed By: #### S ####[facility] LABCLIA [id number] [address] FINAL DIAGNOSIS [facility] Comment on above: Order Comment: Speci moise Type: TISSUE SPECIMENOrdering Facility: [facility] Address: [address] [place] [address] Result Comment: A. S mall bowel, biopsy:- Duodenal mucosa with no significant diagnostic alteration.- No evidence of celiac disease or duodenitis.B. Stomach, biopsy:- Reactive antral gastropathy with intestinal metaplasia, negative for dysplasia.- Oxyntic mucosa with no significant diagnostic alteration.- No morphologic evidence of Helicobacter pylori organisms. Performed By: #### S ####[facility] LABCLIA [id number] [address] [place] FINAL PERFORMING LAB [facility] Comment on above: Order Comment: Speci men Type: TISSUE SPECIMENOrdering Facility: [facility] Address: [address] [place] [address] Result Comment: Diag nostic interpretation performed at [facility], [address] [address] CLIA# [id number] Director: Anoop Mauricio M.D. Performed By: #### S ####[facility] LABCLIA [id number] [place] [address] [place] GROSS DESCRIPTION Normal [facility] Comment on above: Order Comment: Speci men Type: TISSUE SPECIMENOrdering Facility: [facility] Address: [address] [place] [address] Result Comment: A. S MALL INTESTINE BIOPSYReceived in formalin are two pieces of franklin, soft tissue aggregating to 0.3 x 0.3 x 0.1 cm. Totally submitted in one cassette.B. STOMACH BIOPSYReceived in formalin are two pieces of franklin, soft tissue aggregating to 0.6 x 0.3 x 0.1 cm. Totally submitted in one cassette.JTS May 18, 2023 4:40 PMGross examination performed at [facility], [facility] [place] [address] Performed By: #### S ####[facility] [id number] [place] [address] [place] Upper GI endoscopyon 023 Upper GI endoscopy Normal [facility] CNPNon 05-12-2023 CNPN Normal [facility] Miscellaneouson 04-03-2023 Miscellaneous [id number]#1.00OTGTIF F [facility] Outside Recordson 03-28-2023 Outside Records [id number]#1.00[facility]IFF [facility] CDIFF PCR W/RFLX EIA IF POSI TIVEon 03-23-2023 C. difficile toxin genes HENRRY+probe Ql (Stl) Negative Normal Negative for C. difficile toxin by PCR [facility] Comment on above: Order Comment: Speci men Type: STOOL SPECIMENOrdering Facility: [facility] Address: [address] [place] [address] Performed By: #### C DREFL ####[facility] [id number] [place] [address] [place] Gastrointestinal pathogens i dentified HENRRY+probe Nom (Stl)on 03-23-2023 Campylobacter sp DNA HENRRY+probe Nom (Unsp spec) Not detected Normal Not Detected [facility] Comment on above: Order Comment: Speci men Type: STOOL SPECIMENOrdering Facility: [facility] Address: [address] [place] [address] Performed By: #### 7 9390-1 ####[facility] LABCLIA [id number] [place] [address] [place] Salmonella sp DNA HENRRY+probe Ql (Unsp spec) Not detected Normal Not Detected [facility] Comment on above: Order Comment: Speci men Type: STOOL SPECIMENOrdering Facility: [facility] Address: [address] [place] [address] Performed By: #### 7 9390-1 ####[facility] LABCLIA [id number] [place] [address] [place] Shiga toxin stx gene HENRRY+probe Nom (Unsp spec) Not detected Normal Not Detected [facility] Comment on above: Order Comment: Speci men Type: STOOL SPECIMENOrdering Facility: [facility] Address: [address] [place] [address] Performed By: #### 7 9390-1 ####[facility] LABCLIA [id number] [place] [address] [place] Shigella sp DNA HENRRY+probe Ql (Unsp spec) Not detected Normal Not Detected [facility] Comment on above: Order Comment: Speci men Type: STOOL SPECIMENOrdering Facility: [facility] Address: [address] [place] [address] Performed By: #### 7 9390-1 ####[facility] LABCLIA [id number] [place] [address] [place] CNOVon 03-22-2023 CNOV Normal [facility] CREATININE BLDon 03-22-2023 Creatinine [Mass/Vol] 0.75 mg/dL Normal 0.58-0.96 [facility] Comment on above: Order Comment: Speci men Type: BLOOD SPECIMENOrdering Facility: [facility] Address: [address] [place] [address] Performed By: #### C RET1 ####[facility] [id number] [place] [address] [place] Creatinine and Glomerular filtration rate.predicted panel (S/P/Bld) 91 mL/min/1.73m??? Normal >=60 [facility] Comment on above: Order Comment: Speci men Type: BLOOD SPECIMENOrdering Facility: [facility] Address: [address] [place] [address] Result Comment: Tuyet mated Glomerular Filtration Rate (eGFR) is calculated using the 2020 CKD-EPI creatinine equation. This equation utilizes serum creatinine, sex, and age as parameters. The creatinine assay has traceable calibration to isotope dilution-mass spectrometry. Refer to KDIGO guidelines for clinical interpretation. In patients with unstable renal function, e.g. those with acute kidney injury, the eGFR may not accurately reflect actual GFR. Performed By: #### C RET1 ####[facility] [id number] [place] [address] [place] Outside Recordson 03-09-2023 Outside Records [id number]#1.00[facility]IFF [facility] Coding Summaryon 03-04-2023 [facility] Coding Summaryon 03-02-2023 [facility] Outside Recordson 03-02-2023 Outside Records [id number]#1.00OTGTIF [facility] CBC W Auto Differential pane l (Bld)on 03-01-2023 Basophils (Bld) [#/Vol] 0.04 10*3/uL Normal <0.11 [facility] Comment on above: Order Comment: Speci men Type: BLOOD SPECIMENOrdering Facility: [facility] Address: [address] [id number] Performed By: #### 5 7021-8 ####[facility] [id number] [address] [place] Basophils/100 WBC (Bld) 0.7 % Normal [facility] Comment on above: Order Comment: Speci men Type: BLOOD SPECIMENOrdering Facility: [facility] Address: [address] [place] [address] Performed By: #### 5 7021-8 ####[facility] [id number] [place] [address] [place] Differential cell count method Nom (Bld) Auto Normal [facility] Comment on above: Order Comment: Speci men Type: BLOOD SPECIMENOrdering Facility: [facility] Address: [address] [place] [address] Performed By: #### 5 7021-8 ####[facility] [id number] [place] [address] [place] Eosinophils (Bld) [#/Vol] 0.33 10*3/uL Normal <0.46 [facility] Comment on above: Order Comment: Speci men Type: BLOOD SPECIMENOrdering Facility: [facility] Address: [address] [place] [address] Performed By: #### 5 7021-8 ####[facility] [id number] [place] [address] OF [facility] Eosinophils/100 WBC (Bld) 5.5 % Normal [facility] Comment on above: Order Comment: Speci men Type: BLOOD SPECIMENOrdering Facility: [facility] Address: [address] [place], [place] [address] Performed By: #### 5 7021-8 ####[facility] [id number] [place] [address] [place] Erythrocyte distribution width (RBC) [Ratio] 14.5 % Normal 11.5-15.0 [facility] Comment on above: Order Comment: Speci men Type: BLOOD SPECIMENOrdering Facility: [facility] Address: [address] Performed By: #### 5 7021-8 ####[facility] [id number] [place] [address] [place] Hematocrit (Bld) [Volume fraction] 37.6 % Normal 36.0-46.0 [facility] Comment on above: Order Comment: Speci men Type: BLOOD SPECIMENOrdering Facility: [facility] Address: [address] Performed By: #### 5 7021-8 ####[facility] [id number] [place] [address] [place] Hemoglobin (Bld) [Mass/Vol] 12.5 g/dL Normal 11.5-15.5 [facility] Comment on above: Order Comment: Speci men Type: BLOOD SPECIMENOrdering Facility: [facility] Address: [address] [place], [place] [address] Performed By: #### 5 7021-8 ####[facility] [id number] [place] [address] [place] Immature granulocytes (Bld) [#/Vol] 10*3/uL Normal <0.10 [facility] Comment on above: Order Comment: Speci men Type: BLOOD SPECIMENOrdering Facility: [facility] Address: [address] [place], [place] [address] Performed By: #### 5 7021-8 ####[facility] [id number] [address] [place] Immature granulocytes/100 WBC (Bld) 0.3 % Normal [facility] Comment on above: Order Comment: Speci men Type: BLOOD SPECIMENOrdering Facility: [facility] Address: [address] [place], [place] [address] Performed By: #### 5 7021-8 ####[facility] [id number] [address] STATES OF [facility] Lymphocytes (Bld) [#/Vol] 0.95 10*3/uL Low 1.00-4.00 [facility] Comment on above: Order Comment: Speci men Type: BLOOD SPECIMENOrdering Facility: [facility] Address: [address] [place] [address] Performed By: #### 5 7021-8 ####[facility] [id number] [place] [address] Lymphocytes/100 WBC (Bld) 15.7 % Normal [facility] Comment on above: Order Comment: Speci men Type: BLOOD SPECIMENOrdering Facility: [facility] Address: [address] [place] [address] Performed By: #### 5 7021-8 ####[facility] [id number] [place] [address] STATES [facility] MCH (RBC) [Entitic mass] 27.8 pg Normal 26.0-34.0 [facility] Comment on above: Order Comment: Speci men Type: BLOOD SPECIMENOrdering Facility: [facility] Address: [address] [place] [address] Performed By: #### 5 7021-8 ####[facility] [id number] [place] [address] OF [facility] MCHC (RBC) [Mass/Vol] 33.2 g/dL Normal 30.5-36.0 [facility] Comment on above: Order Comment: Speci men Type: BLOOD SPECIMENOrdering Facility: [facility] Address: [address] [place], [place] [address] Performed By: #### 5 7021-8 ####[facility] [id number] [place] [address] [place] MCV (RBC) [Entitic vol] 83.7 fL Normal 80.0-100.0 [facility] Comment on above: Order Comment: Speci men Type: BLOOD SPECIMENOrdering Facility: [facility] Address: [address] Performed By: #### 5 7021-8 ####[facility] [id number] [place] [address] [place] Monocytes (Bld) [#/Vol] 0.45 10*3/uL Normal <0.87 [facility] Comment on above: Order Comment: Speci men Type: BLOOD SPECIMENOrdering Facility: [facility] Address: [address] Performed By: #### 5 7021-8 ####[facility] [id number] [place] [address] [place] Monocytes/100 WBC (Bld) 7.5 % Normal [facility] Comment on above: Order Comment: Speci men Type: BLOOD SPECIMENOrdering Facility: [facility] Address: [address] Performed By: #### 5 7021-8 ####[facility] [id number] [place] [address] [place] Neutrophils (Bld) [#/Vol] 4.25 10*3/uL Normal 1.45-7.50 [facility] Comment on above: Order Comment: Speci men Type: BLOOD SPECIMENOrdering Facility: [facility] Address: [address] Performed By: #### 5 7021-8 ####[facility] [id number] [place] [address] [place] Neutrophils/100 WBC (Bld) 70.3 % Normal [facility] Comment on above: Order Comment: Speci men Type: BLOOD SPECIMENOrdering Facility: [facility] Address: [address] [place], [place] [address] Performed By: #### 5 7021-8 ####[facility] [id number] [place] [address] [place] Nucleated RBC (Bld) [#/Vol] 10*3/uL Normal <0.01 [facility] Comment on above: Order Comment: Speci men Type: BLOOD SPECIMENOrdering Facility: [facility] Address: [address] [place] [address] Performed By: #### 5 7021-8 ####[facility] [id number] [place] [address] [place] Nucleated RBC/100 WBC (Bld) [Ratio] 0.0 /100 WBC Normal [facility] Comment on above: Order Comment: Speci men Type: BLOOD SPECIMENOrdering Facility: [facility] Address: [address] [place] [address] Performed By: #### 5 7021-8 ####[facility] [id number] [place] [address] [place] Platelet mean volume (Bld) [Entitic vol] 10.1 fL Normal 9.0-12.7 [facility] Comment on above: Order Comment: Speci men Type: BLOOD SPECIMENOrdering Facility: [facility] Address: [address] [place], [place] [address] Performed By: #### 5 7021-8 ####[facility] [id number] [place] [address] [place] Platelets (Bld) [#/Vol] 231 10*3/uL Normal 150-400 [facility] Comment on above: Order Comment: Speci men Type: BLOOD SPECIMENOrdering Facility: [facility] Address: [address] [place], [place] [address] Performed By: #### 5 7021-8 ####[facility] [id number] [place] [address] [place] RBC (Bld) [#/Vol] 4.49 10*6/uL Normal 3.90-5.20 [facility] Comment on above: Order Comment: Speci men Type: BLOOD SPECIMENOrdering Facility: [facility] Address: [address] [place], [place] [address] Performed By: #### 5 7021-8 ####[facility] [id number] [place] [address] [place] WBC (Bld) [#/Vol] 6.04 10*3/uL Normal 3.70-11.00 [facility] Comment on above: Order Comment: Speci men Type: BLOOD SPECIMENOrdering Facility: [facility] Address: [address] [place], [place] [address] Performed By: #### 5 7021-8 ####[facility] [id number] [place] [address] [place] CNOVSPon 03-01-2023 CNOVSP Normal [facility] CT CHEST W IVCONon CT CHEST W IVCON Normal [facility] Comprehensive metabolic 2000 panelon 03-01-2023 Albumin [Mass/Vol] 4.4 g/dL Normal 3.9-4.9 [facility] Comment on above: Order Comment: Speci men Type: BLOOD SPECIMENOrdering Facility: [facility] Address: [address] [place], [place] [address] Performed By: #### 2 4323-8 ####[facility] [id number] [place] [address] [place] ALP [Catalytic activity/Vol] 98 U/L Normal 34-123 [facility] Comment on above: Order Comment: Speci men Type: BLOOD SPECIMENOrdering Facility: [facility] Address: [address] [place], [place] [address] Performed By: #### 2 4323-8 ####[facility] [id number] [address] [place] ALT [Catalytic activity/Vol] 24 U/L Normal 7-38 [facility] Comment on above: Order Comment: Speci men Type: BLOOD SPECIMENOrdering Facility: [facility] Address: [address] [place] [address] Performed By: #### 2 4323-8 ####[facility] [id number] [place] [address] [place] Anion gap [Moles/Vol] 9 mmol/L Normal 9-18 [facility] Comment on above: Order Comment: Speci men Type: BLOOD SPECIMENOrdering Facility: [facility] Address: [address] [place] [address] Performed By: #### 2 4323-8 ####[facility] [id number] [place] [address] [place] AST [Catalytic activity/Vol] 24 U/L Normal 13-35 [facility] Comment on above: Order Comment: Speci men Type: BLOOD SPECIMENOrdering Facility: [facility] Address: [address] [place] [address] Performed By: #### 2 4323-8 ####[facility] [id number] [place] [address] [place] Bilirubin [Mass/Vol] 0.4 mg/dL Normal 0.2-1.3 [facility] Comment on above: Order Comment: Speci men Type: BLOOD SPECIMENOrdering Facility: [facility] Address: [address] [address] Performed By: #### 2 4323-8 ####[facility] [id number] [place] [address] [place] Calcium [Mass/Vol] 9.2 mg/dL Normal 8.5-10.2 [facility] Comment on above: Order Comment: Speci men Type: BLOOD SPECIMENOrdering Facility: [facility] Address: [address] [place], [place] [address] Performed By: #### 2 4323-8 ####[facility] [id number] [address] [place] Chloride [Moles/Vol] 103 mmol/L Normal 97-105 [facility] Comment on above: Order Comment: Speci men Type: BLOOD SPECIMENOrdering Facility: [facility] Address: [address] [place] [address] Performed By: #### 2 4323-8 ####[facility] [id number] [place] [address] [place] CO2 [Moles/Vol] 29 mmol/L Normal 22-30 [facility] Comment on above: Order Comment: Speci men Type: BLOOD SPECIMENOrdering Facility: [facility] Address: [address] [place] [address] Performed By: #### 2 4323-8 ####[facility] [id number] [place] [address] [place] Creatinine [Mass/Vol] 0.91 mg/dL Normal 0.58-0.96 [facility] Comment on above: Order Comment: Speci men Type: BLOOD SPECIMENOrdering Facility: [facility] Address: [address] [place] [address] Performed By: #### 2 4323-8 ####[facility] [id number] [place] [address] Creatinine and Glomerular filtration rate.predicted panel (S/P/Bld) 72 mL/min/1.73m??? Normal >=60 [facility] Comment on above: Order Comment: Speci men Type: BLOOD SPECIMENOrdering Facility: [facility] Address: [address] [place] [address] Result Comment: Tuyet mated Glomerular Filtration Rate (eGFR) is calculated using the 2020 CKD-EPI creatinine equation. This equation utilizes serum creatinine, sex, and age as parameters. The creatinine assay has traceable calibration to isotope dilution-mass spectrometry. Refer to KDIGO guidelines for clinical interpretation. In patients with unstable renal function, e.g. those with acute kidney injury, the eGFR may not accurately reflect actual GFR. Performed By: #### 2 4323-8 ####[facility] [id number] [place] [address] [place] Glucose [Mass/Vol] 108 mg/dL High 74-99 [facility] Comment on above: Order Comment: Speci moise Type: BLOOD SPECIMENOrdering Facility: [facility] Address: [address] [place] [address] Result Comment: The [place] Diabetes Association (ADA) provides guidance for cutoff values for fasting glucose and random glucose. The ADA defines fasting as no caloric intake for at least 8 hours. Fasting plasma glucose results between 100 to 125 mg/dL indicate increased risk for diabetes (prediabetes).Fasting plasma glucose results greater than or equal to 126 mg/dL meet the criteria for diagnosis of diabetes. In the absence of unequivocal hyperglycemia, results should be confirmed by repeat testing. In a patient with classic symptoms of hyperglycemia or hyperglycemic crisis, random plasma glucose results greater than or equal to 200 mg/dL meet the criteria for diagnosis of diabetes.Reference: Standards of Medical Care in Diabetes 2016, [place] Diabetes Association. Diabetes Care. 2016.39(Suppl 1). Performed By: #### 2 4323-8 ####[facility] [id number] [place] [address] [place] Potassium [Moles/Vol] 3.7 mmol/L Normal 3.7-5.1 [facility] Comment on above: Order Comment: Nicolle phipps Type: BLOOD SPECIMENOrdering Facility: [facility] Address: [address] [id number] Performed By: #### 2 4323-8 ####[facility] [id number] [place] [address] [place] Protein [Mass/Vol] 6.8 g/dL Normal 6.3-8.0 [facility] Comment on above: Order Comment: Speci men Type: BLOOD SPECIMENOrdering Facility: [facility] Address: [address] [place] [address] Performed By: #### 2 4323-8 ####[facility] [id number] [place] [address] [place] Sodium [Moles/Vol] 141 mmol/L Normal 136-144 [facility] Comment on above: Order Comment: Speci men Type: BLOOD SPECIMENOrdering Facility: [facility] Address: [address] [place] [address] Performed By: #### 2 4323-8 ####[facility] [id number] [place] [address] [place] Urea nitrogen [Mass/Vol] 17 mg/dL Normal 7-21 [facility] Comment on above: Order Comment: Speci men Type: BLOOD SPECIMENOrdering Facility: [facility] Address: [address] [place] [address] Performed By: #### 2 4323-8 ####[facility] [id number] [place] [address] [place] T4/FTI/T4Uon 03-01-2023 FTI 9.0 ug/dL Normal 5.3-10.8 [facility] Comment on above: Order Comment: Speci men Type: BLOOD SPECIMENOrdering Facility: [facility] Address: [address] [place] [address] Performed By: #### 3 016-3, T4FTI ####[facility] [id number] [place] [address] [place] T4 [Mass/Vol] 8.6 ug/dL Normal 5.5-10.2 [facility] Comment on above: Order Comment: Speci men Type: BLOOD SPECIMENOrdering Facility: [facility] Address: [address] [place] [address] Performed By: #### 3 016-3, T4FTI ####[facility] LABCLIA [id number] [place] [address] [place] T4 uptake [Mass/Vol] 0.96 Normal 0.91-1.19 [facility] Comment on above: Order Comment: Speci men Type: BLOOD SPECIMENOrdering Facility: [facility] Address: [address] [place] [address] Performed By: #### 3 016-3, T4FTI ####[facility] LABCLIA [id number] [place] [address] [place] TSH SerPl-aCncon 03-01-2023 TSH Qn 2.630 m[IU]/L Normal 0.270-4.200 [facility] Comment on above: Order Comment: Speci men Type: BLOOD SPECIMENOrdering Facility: [facility] Address: [address] [place] [address] Performed By: #### 3 016-3, T4FTI ####[facility] [id number] [place] [address] [place] .Auto Diff 02-24-2023 Auto [place] % 8 % Normal 1-12 [facility] Comment on above: Performed By: #### 1 [id number], [id number], [id number], [id number], [id number], [id number] ####[facility] (DEFAULT)6163 [place] [address] 26916 Baso Abs# 0.0 x10 Normal 0.0-0.2 [facility] Comment on above: Performed By: #### 1 [id number], 3808080321, 7967128030, 31121022, 2270468341, 8795185 ####[facility] (DEFAULT)[address] [place] [address] 87069 Basophils/100 WBC (Bld) 0.5 % Normal 0.2-2.0 [facility] Comment on above: Performed By: #### 1 [id number], 9070884511, 9268347298, 14092822, 0661027471, 3165026 ####[facility] (DEFAULT)[address] [place] [address] 64406 Eos Abs# 0.1 x10 Normal 0.0-0.4 [facility] Comment on above: Performed By: #### 1 102476673, 1786912660, 7296268941, 67641168, 0440608275, 3499825 ####[facility] (DEFAULT)[address] [place] [address] 37014 Eosinophils/100 WBC (Bld) 2.3 % Normal 0.9-4.0 [facility] Comment on above: Performed By: #### 1 140872247, 9767584639, 5969555938, 34707187, 1742951191, 3859251 ####[facility] (DEFAULT)[address] [place] [address] 71373 Lymph Abs# 0.7 x10 Low 1.3-2.9 [facility] Comment on above: Performed By: #### 1 743347299, 7418716331, 1268918163, 64798267, 1023082204, 2283331 ####[facility] (DEFAULT)[address] [place] [address] 42896 Lymphocytes/100 WBC (Bld) 11 % Low 14-48 [facility] Comment on above: Performed By: #### 1 404898636, 2184809638, 7756885055, 72635205, 6543266009, 4893612 ####[facility] (DEFAULT)[address] [place] [address] 93617 Mifflin Abs# 0.5 x10 Normal 0.0-0.8 [facility] Comment on above: Performed By: #### 1 667359165, 7476858288, 4657937414, 46636993, 0094612641, 4083888 ####[facility] (DEFAULT)[address] [place] [address] 45866 Neut Abs# 4.5 x10 Normal 1.5-9.2 [facility] Comment on above: Performed By: #### 1 274617670, 6534394252, 2881261004, 14031141, 2786864365, 7187111 ####[facility] (DEFAULT)[address] [place] [address] Neutrophils/100 WBC (Bld) 77 % Normal 44-88 [facility] Comment on above: Performed By: #### 1 112968119, 8507015362, 4688426898, 91072237, 4038854378, 8695961 ####[facility] (DEFAULT)[address] [place] [address] CBC w/ Auto Diffon 3 Erythrocyte distribution width (RBC) [Ratio] 14.3 % Normal 11.5-15.0 [facility] Comment on above: Performed By: #### 1 563387001, 3390151026, 5592726676, 13607913, 4267113509, 7110790 ####[facility] (DEFAULT)[address] [place] [address] Hematocrit (Bld) [Volume fraction] 32.7 % Low 33.7-40.4 [facility] Comment on above: Performed By: #### 1 423100540, 2328013401, 7257860092, 60862091, 1766353401, 5828031 ####[facility] (DEFAULT)[address] [place] [address] 22692 Hemoglobin (Bld) [Mass/Vol] 11.3 g/dL Normal 11.3-15.9 [facility] Comment on above: Performed By: #### 1 973335014, 4954230743, 1716748238, 20153083, 8787459510, 7307518 ####[facility] (DEFAULT)[address] [place] [address] 93257 Man Diff? Auto Invalid Interpretation Code [facility] Comment on above: Performed By: #### 1 030532148, 8459798755, 3692873847, 62278584, 8202259914, 6972723 ####[facility] (DEFAULT)[address] [place] [address] 95365 MCH (RBC) [Entitic mass] 28 pg Normal 24-34 [facility] Comment on above: Performed By: #### 1 497750169, 5548833249, 4690027195, 27496982, 0040084956, 1626499 ####[facility] (DEFAULT)[address] [place] [address] 19176 MCHC (RBC) [Mass/Vol] 34 g/dL Normal 26-37 [facility] Comment on above: Performed By: #### 1 313990439, 5897676768, 3818893433, 85742055, 6538385102, 1162720 ####[facility] (DEFAULT)[address] [place] [address] MCV (RBC) [Entitic vol] 82 fL Normal 81-100 [facility] Comment on above: Performed By: #### 1 581219789, 1703326003, 8847894209, 76195591, 7062866322, 2546968 ####[facility] (DEFAULT)[address] [place] [address] Platelet 182 x10 Normal 138-427 [facility] Comment on above: Performed By: #### 1 248752802, 8485429486, 6280255053, 98763277, 3452815684, 6280087 ####[facility] (DEFAULT)[address] [place] [address] 66232 Platelet mean volume (Bld) [Entitic vol] 8.8 fL Normal 6.3-10.2 [facility] Comment on above: Performed By: #### 1 741056936, 3585299624, 3082786261, 88612345, 3768673521, 1591104 ####[facility] (DEFAULT)[address] [place] [address] RBC 4.00 x10 Normal 3.70-5.30 [facility] Comment on above: Performed By: #### 1 425185651, 9627852794, 9605006171, 86507937, 5536004733, 4603929 ####[facility] (DEFAULT)[address] [place] [address] WBC 5.8 x10 Normal 3.5-10.5 [facility] Comment on above: Performed By: #### 1 009562046, 7834843552, 9776216842, 68687900, 2461197441, 3546145 ####[facility] (DEFAULT)[address] [place] [address] 61461 CMP Standardon 02-24-2023 eGFR Non AA >60 Invalid Interpretation Code [facility] Comment on above: Performed By: #### 1 620606540, 0608391820, 1178872791, 44826484, 4445348283, 7032853 ####[facility] (DEFAULT)[address] [place] [address] 07972 eGFR AA >60 Invalid Interpretation Code [facility] Comment on above: Performed By: #### 1 498371299, 7608004054, 4736967801, 38553763, 4734339604, 4940519 ####[facility] (DEFAULT)[address] [place] [address] 50946 Albumin [Mass/Vol] 4.4 g/dL Normal 3.5-5.0 [facility] Comment on above: Performed By: #### 1 825433902, 0636764456, 8285066223, 28286467, 7723005853, 7353688 ####[facility] (DEFAULT)[address] [place] [address] 40228 Albumin/Globulin [Mass ratio] 1.5 {ratio} Normal 1.4-2.6 [facility] Comment on above: Performed By: #### 1 395053396, 9870773780, 9497627739, 95196278, 9979264321, 0850613 ####[facility] (DEFAULT)[address] [place] [address] 61035 Alk Phos 85 IU/L Normal 32-91 [facility] Comment on above: Performed By: #### 1 380466006, 1262688922, 6988435635, 55982637, 7762216854, 9413894 ####[facility] (DEFAULT)[address] [place] [address] 02512 ALT [Catalytic activity/Vol] 26.0 U/L Normal 14.0-54.0 [facility] Comment on above: Performed By: #### 1 488339597, 4510419390, 2069260861, 80427421, 9787666925, 0277293 ####[facility] (DEFAULT)[address] [place] [address] 98462 Anion gap [Moles/Vol] 12.2 mmol/L Normal 5.0-19.0 [facility] Comment on above: Performed By: #### 1 446044658, 7276946301, 2273328369, 70036371, 7399620882, 6753927 ####[facility] (DEFAULT)[address] [place] [address] 35292 AST [Catalytic activity/Vol] 25 U/L Normal 15-41 [facility] Comment on above: Performed By: #### 1 047190041, 4763916147, 8913343190, 51704181, 3720384383, 9385523 ####[facility] (DEFAULT)[address] [place] [address] 53352 Bili Total 1.1 mg/dL Normal 0.3-1.2 [facility] Comment on above: Performed By: #### 1 294681645, 5973350268, 5042387377, 44097742, 6451694962, 0523660 ####[facility] (DEFAULT)[address] [place] [address] 32197 Calcium [Mass/Vol] 8.9 mg/dL Normal 8.9-10.3 [facility] Comment on above: Performed By: #### 1 359587034, 7528798895, 8633881705, 00016433, 2135449574, 0602659 ####[facility] (DEFAULT)[address] [place] [address] 40721 Chloride [Moles/Vol] 109 mmol/L Normal 101-111 [facility] Comment on above: Performed By: #### 1 438627731, 9058966170, 1534241679, 31663778, 5014061607, 6482709 ####[facility] (DEFAULT)[address] [place] [address] 03048 CO2 [Moles/Vol] 25 mmol/L Normal 21-32 [facility] Comment on above: Performed By: #### 1 139592510, 7174876915, 2917837464, 58834579, 4889223184, 9089397 ####[facility] (DEFAULT)[address] [place] [address] 49202 Creatinine [Mass/Vol] 0.80 mg/dL Normal 0.60-1.30 [facility] Comment on above: Performed By: #### 1 697952161, 8332556955, 7136596209, 40685815, 3866803031, 3668269 ####[facility] (DEFAULT)[address] [place] [address] 21908 Globulin (S) [Mass/Vol] 2.9 g/dL Normal 1.5-4.3 [facility] Comment on above: Performed By: #### 1 265071699, 7425077798, 0133791566, 62605438, 2490464885, 4645171 ####[facility] (DEFAULT)[address] [place] [address] 30608 Glucose [Mass/Vol] 79.0 mg/dL Normal 74.0-118.0 [facility] Comment on above: Performed By: #### 1 470058173, 7996339767, 5585162633, 28662601, 6781249521, 0964786 ####[facility] (DEFAULT)[address] [place] [address] 04670 Osmolality 288 mOsm/L Invalid Interpretation Code [facility] Comment on above: Performed By: #### 1 427701722, 8502762682, 3457687949, 86618968, 9209302315, 4234893 ####[facility] (DEFAULT)[address] [place] [address] 56118 Potassium [Moles/Vol] 3.2 mmol/L Low 3.6-5.1 [facility] Comment on above: Performed By: #### 1 073527604, 0357333057, 1490314826, 46406021, 6753521903, 6791245 ####[facility] (DEFAULT)[address] [place] [address] 94342 Protein [Mass/Vol] 7.3 g/dL Normal 6.5-8.1 [facility] Comment on above: Performed By: #### 1 520721219, 5186601357, 3821595918, 31484729, 7346851892, 4915244 ####[facility] (DEFAULT)[address] [place] [address] 93927 Sodium [Moles/Vol] 143.0 mmol/L Normal 136.0-144.0 [facility] Comment on above: Performed By: #### 1 807005255, 0775348115, 2242685178, 58739673, 8419729722, 7058433 ####[facility] (DEFAULT)[address] [place] [address] 09815 Urea nitrogen [Mass/Vol] 23 mg/dL Normal 8-26 [facility] Comment on above: Performed By: #### 1 997478512, 9438273087, 9885732482, 02491960, 0853218231, 2131806 ####[facility] (DEFAULT)[address] [place] [address] 96427 Urea nitrogen/Creatinine [Mass ratio] 28.7 mg/mg High 4.6-16.2 [facility] Comment on above: Performed By: #### 1 982843045, 4353199143, 8312742980, 12150650, 5424834697, 8256802 ####[facility] (DEFAULT)[address] [place] [address] 01578 ED Clinical Summaryon 2022 ED Clinical Summary Normal [facility] ED Note - Physicianon 2022 ED Note - Physician Normal [facility] ED Note-Nursingon 02-24-2023 ED Note-Nursing Patient presents wit h complaints of nausea and abdominal pain. Patient recently diagnosed with colitis and put on antibiotics. Patient states the medication is making her sick. Normal [facility] ED Patient Education Noteon 02-24-2023 ED Patient Education Note Normal [facility] ED Patient Summaryon 023 ED Patient Summary Normal [facility] Extra Redon 02-24-2023 Tube Collected Yes Invalid Interpretation Code [facility] Comment on above: Performed By: #### 1 [id number], 3065070908, 6156362506, 57695406, 7443308548, 2176107 ####[facility] (DEFAULT)[address] [place] [address] 86847 Outside Recordson 02-23-2023 Outside Records [id number] Normal [facility] .Auto Diff 102-22-2023 Auto Mifflin % 4 % Normal 06-09 [facility] Comment on above: Performed By: #### 2 356165, 0414480683, 1484708256, 7349428, 1619855409, 2774723223, 31110670 ####[facility] (DEFAULT)[address] [place] [address] 93049 Baso Abs# 0.0 x10 Normal 0.0-0.2 [facility] Comment on above: Performed By: #### 2 168224, 9989345065, 7861371381, 6589556, 4444496646, 5283691281, 61038651 ####[facility] (DEFAULT)[address] [place] [address] 15488 Basophils/100 WBC (Bld) 0.5 % Normal 0.2-2.0 [facility] Comment on above: Performed By: #### 2 356253, 8280080284, 2669903520, 1111114, 0372167149, 9953128338, 26809520 ####[facility] (DEFAULT)[address] [place] [address] 66859 Eos Abs# 0.0 x10 Normal 0.0-0.4 [facility] Comment on above: Performed By: #### 2 860055, 1278266162, 0883738577, 5613816, 4804092288, 8189963327, 71139385 ####[facility] (DEFAULT)[address] [place] [address] 19930 Eosinophils/100 WBC (Bld) 0.1 % Low 0.9-4.0 [facility] Comment on above: Performed By: #### 2 086802, 9271653398, 5774602296, 2868140, 7982634966, 3553427688, 91516561 ####[facility] (DEFAULT)[address] [place] [address] 59094 Lymph Abs# 0.4 x10 Low 1.3-2.9 [facility] Comment on above: Performed By: #### 2 173342, 7886793860, 0752915244, 6041086, 8645089095, 0906664667, 45248159 ####[facility] (DEFAULT)[address] [place] [address] 30048 Lymphocytes/100 WBC (Bld) 5 % Low 14-48 [facility] Comment on above: Performed By: #### 2 059711, 6023700692, 4998495375, 5392088, 5920441797, 3366435499, 21127738 ####[facility] (DEFAULT)[address] [place] [address] 54707 Mifflin Abs# 0.3 x10 Normal 0.0-0.8 [facility] Comment on above: Performed By: #### 2 974702, 0585601214, 7355385182, 4542820, 3961176018, 0004035804, 34070978 ####[facility] (DEFAULT)[address] [place] [address] 23757 Neut Abs# 6.9 x10 Normal 1.5-9.2 [facility] Comment on above: Performed By: #### 2 370979, 2671753684, 3521162328, 2373242, 9078561670, 5776208400, 89844534 ####[facility] (DEFAULT)[address] [place] [address] 81912 Neutrophils/100 WBC (Bld) 90 % High 44-88 [facility] Comment on above: Performed By: #### 2 946519, 2600361976, 1854799643, 2788617, 7283835126, 0953685582, 43041260 ####[facility] (DEFAULT)[address] [place] [address] CBC w/ Auto Diffon 3 Erythrocyte distribution width (RBC) [Ratio] 14.9 % Normal 11.5-15.0 [facility] Comment on above: Performed By: #### 2 867872, 5739981555, 0790515121, 0228058, 7801087981, 1968021957, 87891037 ####[facility] (DEFAULT)[address] [place] [address] Hematocrit (Bld) [Volume fraction] 38.5 % Normal 33.7-40.4 [facility] Comment on above: Performed By: #### 2 413007, 4530387975, 6789648990, 7776450, 7500759254, 1967457696, 88246208 ####[facility] (DEFAULT)[address] [place] [address] Hemoglobin (Bld) [Mass/Vol] 13.1 g/dL Normal 11.3-15.9 [facility] Comment on above: Performed By: #### 2 199600, 6661414034, 8342074151, 6830162, 1319693334, 1433628644, 62821539 ####[facility] (DEFAULT)[address] [place] [address] Man Diff? Auto Invalid Interpretation Code [facility] Comment on above: Performed By: #### 2 809377, 2731067942, 2474160037, 0513914, 4670040796, 2763768995, 09110601 ####[facility] (DEFAULT)[address] [place] [address] 12017 MCH (RBC) [Entitic mass] 28 pg Normal 24-34 [facility] Comment on above: Performed By: #### 2 449426, 6271744060, 3204931744, 2232060, 3542596767, 2440102293, 89989236 ####[facility] (DEFAULT)[address] [place] [address] 02257 MCHC (RBC) [Mass/Vol] 34 g/dL Normal 26-37 [facility] Comment on above: Performed By: #### 2 863623, 9317330408, 5230579716, 8169532, 5324936479, 7179587628, 73324539 ####[facility] (DEFAULT)[address] [place] [address] 17841 MCV (RBC) [Entitic vol] 82 fL Normal 81-100 [facility] Comment on above: Performed By: #### 2 990927, 0590034478, 3679336597, 6908132, 5053154584, 3421872848, 10550536 ####[facility] (DEFAULT)[address] [place] [address] 67024 Platelet 270 x10 Normal 138-427 [facility] Comment on above: Performed By: #### 2 782771, 2178119973, 1919292819, 7956953, 2262804733, 8015804807, 76603189 ####[facility] (DEFAULT)[address] [place] [address] 18656 Platelet mean volume (Bld) [Entitic vol] 8.1 fL Normal 6.3-10.2 [facility] Comment on above: Performed By: #### 2 407674, 8595855644, 1236653577, 0062789, 0110622775, 9054230374, 74898105 ####[facility] (DEFAULT)[address] [place] [address] 77724 RBC 4.71 x10 Normal 3.70-5.30 [facility] Comment on above: Performed By: #### 2 439019, 1264462366, 3350222060, 2961591, 8054349272, 1603899523, 52100660 ####[facility] (DEFAULT)[address] [place] [address] 15932 WBC 7.7 x10 Normal 3.5-10.5 [facility] Comment on above: Performed By: #### 2 834157, 3558038042, 9656639279, 3330265, 1512264611, 7498285125, 28909868 ####[facility] (DEFAULT)[address] [place] [address] 28260 [facility] Standardon 02-22-2023 eGFR Non AA >60 Invalid Interpretation Code [facility] Comment on above: Performed By: #### 2 650124, 1459957928, 4718984933, 4123398, 8370884759, 2250068504, 75712729 ####[facility] (DEFAULT)[address] [place] [address] 38718 eGFR AA >60 Invalid Interpretation Code [facility] Comment on above: Performed By: #### 2 249650, 0694658868, 4389728191, 7349328, 9829572391, 7610809987, 02270426 ####[facility] (DEFAULT)[address] [place] [address] Albumin [Mass/Vol] 4.6 g/dL Normal 3.5-5.0 [facility] Comment on above: Performed By: #### 2 955469, 5913328729, 3350352129, 9137741, 8815840495, 2577012732, 69483596 ####[facility] (DEFAULT)[address] [place] [address] Albumin/Globulin [Mass ratio] 1.3 {ratio} Low 1.4-2.6 [facility] Comment on above: Performed By: #### 2 132694, 6197475116, 1773892000, 4788269, 1942161053, 3976892775, 24738158 ####[facility] (DEFAULT)[address] [place] [address] 09415 Alk Phos 105 IU/L High 32-91 [facility] Comment on above: Performed By: #### 2 894862, 1980904769, 8747870574, 2201587, 1163858266, 3117154242, 96037491 ####[facility] (DEFAULT)[address] [place] [address] ALT [Catalytic activity/Vol] 29.0 U/L Normal 14.0-54.0 [facility] Comment on above: Performed By: #### 2 941975, 6013328763, 5244806015, 0450147, 7851507380, 6539135284, 87387868 ####[facility] (DEFAULT)[address] [place] [address] 07856 Anion gap [Moles/Vol] 18.7 mmol/L Normal 5.0-19.0 [facility] Comment on above: Performed By: #### 2 533353, 8852195058, 9950186541, 6434516, 1407626886, 3072652360, 16832231 ####[facility] (DEFAULT)[address] [place] [address] 72551 AST [Catalytic activity/Vol] 24 U/L Normal 15-41 [facility] Comment on above: Performed By: #### 2 323812, 3293170214, 3895213369, 9693150, 7654300553, 4539316135, 49297419 ####[facility] (DEFAULT)[address] [place] [address] 80597 Bili Total 0.9 mg/dL Normal 0.3-1.2 [facility] Comment on above: Performed By: #### 2 433495, 6010528602, 5624782373, 5251996, 6584472471, 0746439642, 20601149 ####[facility] (DEFAULT)[address] [place] [address] 73307 Calcium [Mass/Vol] 9.9 mg/dL Normal 8.9-10.3 [facility] Comment on above: Performed By: #### 2 671615, 9751389032, 3652629701, 4695817, 1272042961, 0197296058, 57718710 ####[facility] (DEFAULT)[address] [place] [address] 90921 Chloride [Moles/Vol] 103 mmol/L Normal 101-111 [facility] Comment on above: Performed By: #### 2 585882, 4867646031, 8720428620, 3194779, 7747623183, 2875683723, 86333100 ####[facility] (DEFAULT)[address] [place] [address] 22807 CO2 [Moles/Vol] 22 mmol/L Normal 21-32 [facility] Comment on above: Performed By: #### 2 628211, 2147828423, 2287795018, 7402613, 3163800218, 2761368442, 93221474 ####[facility] (DEFAULT)[address] [place] [address] 41595 Creatinine [Mass/Vol] 0.93 mg/dL Normal 0.60-1.30 [facility] Comment on above: Performed By: #### 2 611821, 7860236563, , 6467402, 6758553581, 8367953054, 15380035 ####[facility] (DEFAULT)[address] [place] [address] 56274 Globulin (S) [Mass/Vol] 3.3 g/dL Normal 1.5-4.3 [facility] Comment on above: Performed By: #### 2 539259, 8051638972, 8273338604, 7163282, 1073142981, 8349111252, 33289292 ####[facility] (DEFAULT)[address] [place] [address] 67759 Glucose [Mass/Vol] 88.0 mg/dL Normal 74.0-118.0 [facility] Comment on above: Performed By: #### 2 92150828, 7204408302, 0679776002, 1669432, 0563841293, 1831004363, 60929525 ####[facility] (DEFAULT)[address] [place] [address] 99417 Osmolality 286 mOsm/L Invalid Interpretation Code [facility] Comment on above: Performed By: #### 2 545489, 3689177207, 9363767984, 5477393, 2351579086, 1807909288, 76325380 ####[facility] (DEFAULT)[address] [place] [address] 72003 Potassium [Moles/Vol] 3.7 mmol/L Normal 3.6-5.1 [facility] Comment on above: Performed By: #### 2 128928, 7890922043, 7900511805, 7525881, 2362475538, 5391418694, 14433149 ####[facility] (DEFAULT)[address] [place] [address] 46587 Protein [Mass/Vol] 7.9 g/dL Normal 6.5-8.1 [facility] Comment on above: Performed By: #### 2 659279, 0871892428, 8830032743, 9090987, 5633632058, 5565432999, 35691260 ####[facility] (DEFAULT)[address] [place] [address] 24870 Sodium [Moles/Vol] 140.0 mmol/L Normal 136.0-144.0 [facility] Comment on above: Performed By: #### 2 [id number], [id number], [id number], [id number], [id number], [id number], [id number] ####[facility] (DEFAULT)[address] [place] [address] 87974 Urea nitrogen [Mass/Vol] 34 mg/dL High 8-26 [facility] Comment on above: Performed By: #### 2 [id number], [id number], [id number], [id number], [id number], [id number], [id number] ####[facility] (DEFAULT)[address] [place] [address] 60158 Urea nitrogen/Creatinine [Mass ratio] 36.5 mg/mg High 4.6-16.2 [facility] Comment on above: Performed By: #### 2 [id number], [id number], [id number], [id number], [id number], [id number], [id number] ####[facility] (DEFAULT)[address] [place] [address] 540[address] ED Clinical Summaryon 2022 ED Clinical Summary Normal [facility] ED Note - Physicianon 2022 ED Note - Physician Normal [facility] ED Note-Nursingon 02-22-2023 ED Note-Nursing Normal [facility] ED Patient Education Noteon 02-22-2023 ED Patient Education Note Normal [facility] ED Patient Summaryon 023 ED Patient Summary Normal [facility] Electrocardiogram-EKGon 01-28 Electrocardiogram-EKG [id number] [facility] Extra Redon 02-22-2023 Tube Collected Yes Invalid Interpretation Code [facility] Comment on above: Performed By: #### 2 [id number], [id number], [id number], [id number], [id number], [id number], [id number] ####[facility] (DEFAULT)[address] [place] [address] Lab - Other Lab Resultson Lab - Other Lab Results [id number]#[facility] 02-22-2023 Magnesium [Mass/Vol] 1.86 mg/dL Normal 1.80-2.50 [facility] Comment on above: Performed By: #### 2 [id number], [id number], [id number], [id number], [id number], [id number], [id number] ####[facility] (DEFAULT)[address] [place] [address] Outside Recordson 02-22-2023 Outside Records [id number][facility] 02-22-2023 Rad - CT Report [id number][facility] abdomen pelvis w conon CT abdomen pelvis w con [facility] [place] [address] CT Scan Report Signed Patient: Zack Snow MR#: [id number] : 1960 Acct:[id number] Age/Sex: 62 / F ADM Date: 02/20/23 Loc: ER Room: Type: [facility] ER Attending Dr: Copies to: Chinedu Mena Jr, MD Ordering Provider: Chinedu Mena Jr, MD Date of Service: 02/20/23 CT/CT abdomen pelvis w con: abd pain, vomiting, dehydration, weight loss CT Abdomen and Pelvis withcontrast TECHNIQUE: Axial imaging with 2-D reconstruction.90 cc of Isovue-300. The CT exam was performed using one or more the following dose reduction techniques: Automated exposure control, adjustment of the MA and/or Kv according to patient size, or use of the iterative reconstruction technique. COMPARISON: None History: Generalized abdominal pain. Nausea and vomiting. LIMITATIONS: None LOWER THORAX the 7 mm lateral RIGHT lower lobe groundglass nodule identified. Trace LEFT pleural effusion. Minor atelectasis. Mild groundglass opacities of the medial portion of the RIGHT middle lobe and inferior portion of the LEFT lower lobe likely representing atelectasis. LIVER: Unremarkable GALLBLADDER: Cholecystectomy clips identified. BILE DUCTS: Mild hepatic biliary ductal dilatation. Unremarkable caliber of the common bile duct. SPLEEN: Unremarkable PANCREAS: Unremarkable ADRENAL GLANDS: Unremarkable KIDNEYS:Unremarkable AORTA: No abdominal aortic aneurysm identified. RETROPERITONEUM: No significant retroperitoneal abnormalities identified. MESENTERY:Unremarkable SMALL BOWEL: The small bowel loops are nondistended. APPENDIX: The appendix is not seen. No pericecal inflammatory changes identified. COLON: Mild wall thickening of the LEFT hemicolon and rectum. Small amount of liquid stool in the rectum. URINARY BLADDER: Urinary bladder is unremarkable. REPRODUCTIVE SYSTEM: Reproductive structures are unremarkable. PNEUMOPERITONEUM: None PERITONEAL FLUID:Small pelvic ascites. BONY STRUCTURES: Diffuse osteopenia. Multilevel degenerative changes of the lumbar spine. Mild scoliosis. Degenerative changes of the hips and SI joints. Small bony island of the femurs. ABDOMINAL WALL: Unremarkable CT/CT abdomen pelvis w con IMPRESSION: Findings suggesting mild enterocolitis. 7 mm pulmonary nodule. Consider follow-up assessment with CT of the chest in 6 months. Impression dictated by: Benigno Hatch M.D.02/21/2023 8:25 AM Dictation Location: [place] [address] Transcribed By: [facility] 02/21/23824 Dictated By: Benigno Hatch DO 02/21/23820 Signed By: 02/21/23824 [facility] FL upper GI w air*on 023 FL upper GI w air* [facility] [address] Fluoroscopy Report Signed Patient: Zack Snow MR#: [id number] : 1960 Acct:[id number] Age/Sex: 62 / F ADM Date: 02/21/23 Loc: XD Room: Type: [facility] Attending Dr: John Mendes DO Copies to: John Mendes DO Ordering Provider: John Mendes DO Date of Service: 02/21/23 FL/FL upper GI w air*: K21.9,K29.70,K22.2 UPPER GI SERIES HISTORY: Assessment for gastritis/gastric ulcer. The 2nd throat. History of thyroid cancer. History of radiation. 55 images.Cumulative Air Kerma in mGy: 112.58 mGy FINDINGS: Examination limited secondary patient positioning and patient tolerance. The distal esophagus has normal course and caliber without fixed intraluminal filling defect or mucosal identified. No hiatal hernia seen. No reflux of contrast into the esophagus. No aspiration of contrast seen. Limited distention of the stomach identified. No gastric ulcer present. Mucosal thickening may be secondary to underdistention. May consider gastritis. Elongated low-lying stomach present. There is markedly delayed gastric emptying with minimal contrast identified in the duodenum at the 60 minute film. The duodenal bulb unremarkable. Limited opacification of the duodenum which is unremarkable.Mild stasis of esophageal contrast. Moderate esophageal dysmotility identified. FL/FL upper GI w air* IMPRESSION: Limited exam. No gastric ulcer. Underdistention of the stomach. May consider gastritis. presbyesophagus. Impression dictated by: Benigno Hatch M.D.02/21/2023 12:34 PM Dictation Location: [place] [address] Transcribed By: [facility] 02/21/23 1234 Dictated By: Benigno Hatch DO 02/21/23 1228 Signed By: 02/21/23 1234 Normal [facility] Alanine aminotransferase [En zymatic activity/volume] in Serum or PlasmaOrdered By: Chinedu Mena on 02-20-2023 ALT [Catalytic activity/Vol] 26 U/L 7-52 [facility] Albumin [Mass/volume] in Ser um or Plasma by Bromocresol green (BCG) dye binding methoOrdered By: Chinedu Mena on 02-20-2023 Albumin BCG dye [Mass/Vol] 4.6 g/dL 3.5-5.7 [facility] Alkaline phosphatase [Enzyma tic activity/volume] in Serum or PlasmaOrdered By: Chinedu Mena on 02-20-2023 ALP [Catalytic activity/Vol] 96 U/L 34-104 [facility] Aspartate aminotransferase [ Enzymatic activity/volume] in Serum or PlasmaOrdered By: Chinedu Mena on 02-20-2023 AST [Catalytic activity/Vol] 23 U/L 13-39 [facility] Automated erythrocytes count in urine sediment (number/area)Ordered By: PROVIDER TEMP on 02-20-2023 RBC Auto (Urine sed) [#/Area] 3-4 [HPF] 0-4 [facility] Automated leukocytes count i n urine sediment (number/area)Ordered By: PROVIDER TEMP on 02-20-2023 WBC Auto (Urine sed) [#/Area] 10-19 [HPF] 0-4 [facility] Automated urine hyaline cast s count (number/volume)Ordered By: PROVIDER TEMP on 02-20-2023 Hyaline casts Auto (U) [#/Vol] 20-49 [LPF] 0-1 [facility] Automated urine sediment porter cium oxalate crystal count by microscopy (number/high powOrdered By: PROVIDER TEMP on 02-20-2023 Calcium oxalate crystals LM.HPF (Urine sed) [#/Area] 1+ [HPF] [facility] Basophils Auto (Bld) [#/Vol] Ordered By: Chinedu Mena on 02-20-2023 Basophils (Bld) [#/Vol] 0.0 10*3/uL 0.0-0.2 [facility] Basophils/100 WBC Auto (Bld) Ordered By: Chinedu Mena on 02-20-2023 Basophils/100 WBC (Bld) 0.4 % . [facility] Bilirubin Test strip Ql (U)O rdered By: PROVIDER BIANCA on 02-20-2023 Bilirubin Ql (U) Negative Negative [facility] Bilirubin.total [Mass/volume ] in Serum or PlasmaOrdered By: Chinedu Mena on 02-20-2023 Bilirubin [Mass/Vol] 0.6 mg/dL 0.3-1.0 [facility] Calcium [Mass/volume] in Ser um or PlasmaOrdered By: Chinedu Mena on 02-20-2023 Calcium [Mass/Vol] 9.7 mg/dL 8.6-10.3 [facility] Carbon dioxide, total [Moles /volume] in Serum or PlasmaOrdered By: Chinedu Mena on 02-20-2023 CO2 [Moles/Vol] 24.8 mmol/L 21.0-31.0 [facility] Casts typing in urine sedime nt by light microscopyOrdered By: PROVIDER TEMP on 02-20-2023 Casts LM Nom (Urine sed) N/A [facility] Chloride [Moles/volume] in S inocente or PlasmaOrdered By: Chinedu Mena on 02-20-2023 Chloride [Moles/Vol] 106 mmol/L 98-107 [facility] Color Auto (U)Ordered By: NGOC FRANCIS TEMP on 02-20-2023 Color (U) Dark yellow Yellow [facility] Complete Blood Count Auto Di ffon 02-20-2023 Basophils (Bld) [#/Vol] 0.0 10*3/uL Normal 0.0-0.2 [facility] Comment on above: Result Comment: PERF ORMED BY: [place] [address] PATHOLOGIST ASSISTANT PROFESSOR OF SOCIOLOGY LUZ HARRIS M.D. Performed By: #### H S TROP, CK, CMP, LIPASE, CBC #### [facility] [address] [place] [address] Basophils/100 WBC (Bld) 0.4 % Normal . [facility] Comment on above: Performed By: #### H S TROP, CK, CMP, LIPASE, CBC #### [facility] [address] [place] [address] [place] Eosinophils (Bld) [#/Vol] 0.1 10*3/uL Normal 0.0-0.45 [facility] Comment on above: Performed By: #### H S TROP, CK, CMP, LIPASE, CBC #### [facility] [address] [place] [address] [place] Eosinophils/100 WBC (Bld) 1.3 % Normal . [facility] Comment on above: Performed By: #### H S TROP, CK, CMP, LIPASE, CBC #### [address] Erythrocyte distribution width (RBC) [Ratio] 14.8 % Normal 11.9-15.3 [facility] Comment on above: Performed By: #### H S TROP, CK, CMP, LIPASE, CBC #### [address] Hematocrit (Bld) [Volume fraction] 39.3 % Normal 34.0-46.4 [facility] Comment on above: Performed By: #### H S TROP, CK, CMP, LIPASE, CBC #### [address] Hemoglobin (Bld) [Mass/Vol] 13.4 g/dL Normal 11.8-15.4 [facility] Comment on above: Performed By: #### H S TROP, CK, CMP, LIPASE, CBC #### [address] Lymphocytes (Bld) [#/Vol] 0.8 10*3/uL Low 1.00-4.8 [facility] Comment on above: Performed By: #### H S TROP, CK, CMP, LIPASE, CBC #### [address] Lymphocytes/100 WBC (Bld) 12.0 % Normal . [facility] Comment on above: Performed By: #### H S TROP, CK, CMP, LIPASE, CBC #### [address] MCH (RBC) [Entitic mass] 27.9 pg Normal 24.7-34.3 [facility] Comment on above: Performed By: #### H S TROP, CK, CMP, LIPASE, CBC #### [address] MCV (RBC) [Entitic vol] 81.9 fL Normal 80-100 [facility] Comment on above: Performed By: #### H S TROP, CK, CMP, LIPASE, CBC #### [address] Mean Corpuscular HGB Conc 34.1 g/dL Normal 32.0-35.0 [facility] Comment on above: Performed By: #### H S TROP, CK, CMP, LIPASE, CBC #### [address] Monocytes (Bld) [#/Vol] 0.5 10*3/uL Normal 0.0-0.8 [facility] Comment on above: Performed By: #### H S TROP, CK, CMP, LIPASE, CBC #### [address] Monocytes/100 WBC (Bld) 19.21 % Normal 0.00-20.00 [facility] Comment on above: Performed By: #### H S TROP, CK, CMP, LIPASE, CBC #### [address] Monocytes/100 WBC (Bld) 7.1 % Normal . [facility] Comment on above: Performed By: #### H S TROP, CK, CMP, LIPASE, CBC #### [address] Neutrophils (Bld) [#/Vol] 5.2 10*3/uL Normal 1.8-7.7 [facility] Comment on above: Performed By: #### H S TROP, CK, CMP, LIPASE, CBC #### [address] Neutrophils/100 WBC (Bld) 79.2 % Normal . [facility] Comment on above: Performed By: #### H S TROP, CK, CMP, LIPASE, CBC #### [address] NRBC% 0.0 /100{WBC} Normal 0-0.5 [facility] Comment on above: Performed By: #### H S TROP, CK, CMP, LIPASE, CBC #### [address] Platelet mean volume (Bld) [Entitic vol] 8.0 fL Normal 6.3-10.7 [facility] Comment on above: Performed By: #### H S TROP, CK, CMP, LIPASE, CBC #### [facility] [address] Platelets (Bld) [#/Vol] 243 10*3/uL Normal 150-450 [facility] Comment on above: Performed By: #### H S TROP, CK, CMP, LIPASE, CBC #### [facility] [address] RBC (Bld) [#/Vol] 4.80 10*6/uL Normal 3.60-5.00 [facility] Comment on above: Performed By: #### H S TROP, CK, CMP, LIPASE, CBC #### [address] WBC (Bld) [#/Vol] 6.5 10*3/uL Normal 3.8-11.6 [facility] Comment on above: Performed By: #### H S TROP, CK, CMP, LIPASE, CBC #### [address] Comprehensive Metabolic Pane sapna 02-20-2023 Albumin [Mass/Vol] 4.6 g/dL Normal 3.5-5.7 [facility] Comment on above: Performed By: #### H S TROP, CK, CMP, LIPASE, CBC #### [address] Albumin/Globulin [Mass ratio] 1.6 {ratio} Normal [facility] Comment on above: Performed By: #### H S TROP, CK, CMP, LIPASE, CBC #### [address] ALP [Catalytic activity/Vol] 96 U/L Normal 34-104 [facility] Comment on above: Performed By: #### H S TROP, CK, CMP, LIPASE, CBC #### [address] ALT [Catalytic activity/Vol] 26 U/L Normal 7-52 [facility] Comment on above: Performed By: #### H S TROP, CK, CMP, LIPASE, CBC #### [address] Anion gap [Moles/Vol] 15.9 mmol/L High 6.0-15.0 [facility] Comment on above: Performed By: #### H S TROP, CK, CMP, LIPASE, CBC #### [address] AST [Catalytic activity/Vol] 23 U/L Normal 13-39 [facility] Comment on above: Performed By: #### H S TROP, CK, CMP, LIPASE, CBC #### [address] Bilirubin [Mass/Vol] 0.6 mg/dL Normal 0.3-1.0 [facility] Comment on above: Performed By: #### H S TROP, CK, CMP, LIPASE, CBC #### [address] Calcium [Mass/Vol] 9.7 mg/dL Normal 8.6-10.3 [facility] Comment on above: Performed By: #### H S TROP, CK, CMP, LIPASE, CBC #### [address] Chloride [Moles/Vol] 106 mmol/L Normal 98-107 [facility] Comment on above: Performed By: #### H S TROP, CK, CMP, LIPASE, CBC #### [address] CO2 [Moles/Vol] 24.8 mmol/L Normal 21.0-31.0 [facility] Comment on above: Performed By: #### H S TROP, CK, CMP, LIPASE, CBC #### [address] Creatinine [Mass/Vol] 1.06 mg/dL Normal 0.60-1.20 [facility] Comment on above: Performed By: #### H S TROP, CK, CMP, LIPASE, CBC #### [address] Creatinine [facility]r [facility] 41.16 [facility] Comment on above: Performed By: #### H S TROP, CK, CMP, LIPASE, CBC #### [address] GFR/1.73 sq M.predicted MDRD (S/P/Bld) [Vol rate/Area] mL/min/{1.73_m2} [facility] Comment on above: Performed By: #### H S TROP, CK, CMP, LIPASE, CBC #### [address] Globulin (S) [Mass/Vol] 2.9 g/dL [facility] Comment on above: Performed By: #### H S TROP, CK, CMP, LIPASE, CBC #### [address] Glucose [Mass/Vol] 80 mg/dL Normal 70-100 [facility] Comment on above: Result Comment: [facility] Glucose Reference Range is dependent on time and content of last meal. Glucose of more than 200 mg/dL in a nonstressed, ambulatory subject supports the diagnosis of Diabetes Mellitus. ADA recommended reference range Performed By: #### H S TROP, CK, CMP, LIPASE, CBC #### [address] Potassium [Moles/Vol] 3.7 mmol/L Normal 3.5-5.1 [facility] Comment on above: Performed By: #### H S TROP, CK, CMP, LIPASE, CBC #### [address] Protein [Mass/Vol] 7.5 g/dL Normal 6.4-8.9 [facility] Comment on above: Performed By: #### H S TROP, CK, CMP, LIPASE, CBC #### [address] Sodium [Moles/Vol] 143 mmol/L Normal 136-145 [facility] Comment on above: Performed By: #### H S TROP, CK, CMP, LIPASE, CBC #### [facility] [address] [place] [address] [place] Urea nitrogen [Mass/Vol] 37 mg/dL High 12-20 [facility] Comment on above: Performed By: #### H S TROP, CK, CMP, LIPASE, CBC #### [facility] [address] [place] [address] [place] Creatine Kinaseon 02-20-2023 CK [Catalytic activity/Vol] 62 U/L Normal [facility] Comment on above: Performed By: #### H S TROP, CK, CMP, LIPASE, CBC #### [facility] [address] [place] [id number] [place] Creatine kinase [Enzymatic a ctivity/volume] in Serum or PlasmaOrdered By: Chinedu Mena on 02-20-2023 CK [Catalytic activity/Vol] 62 U/L [facility] Creatinine [Mass/volume] in Serum or PlasmaOrdered By: Chinedu Mena on 02-20-2023 Creatinine [Mass/Vol] 1.06 mg/dL 0.60-1.20 [facility] Dipstick and Microscopicon 0 02-20-2023 Appearance (U) Cloudy Critically abnormal Clear [facility] Comment on above: Order Comment: Name Collection Type:: Clean-Voided Midstream Performed By: #### C UU, ADDONUAPLUS #### [facility] [address] [place], [place] [id number] [place] Bacteria,Urine None Seen Normal None Seen [facility] Comment on above: Order Comment: Name Collection Type:: Clean-Voided Midstream Performed By: #### C UU, ADDONUAPLUS #### [facility] [address] [place] [id number] [place] Bilirubin,Urine Negative Normal Negative [facility] Comment on above: Order Comment: Name Collection Type:: Clean-Voided Midstream Performed By: #### C UU, ADDONUAPLUS #### [facility] [address] [place], [place] [id number] [place] Calcium Oxalate Crystals,Urine 1+ Normal [facility] Comment on above: Order Comment: Name Collection Type:: Clean-Voided Midstream Performed By: #### C UU, ADDONUAPLUS #### [facility] [address] [place] [address] Color (U) Dark Yellow Critically abnormal Yellow [facility] Comment on above: Order Comment: Name Collection Type:: Clean-Voided Midstream Performed By: #### C UU, ADDONUAPLUS #### [facility] [address] [place] [address] [place] Glucose Ql (U) Normal Normal Normal [facility] Comment on above: Order Comment: Name Collection Type:: Clean-Voided Midstream Performed By: #### C UU, ADDONUAPLUS #### [place] [address] [place] Hyaline Casts,Urine 20-49 High 0-1 [facility] Comment on above: Order Comment: Name Collection Type:: Clean-Voided Midstream Result Comment: PERF ORMED BY: [place] [address] PATHOLOGIST ASSISTANT PROFESSOR OF SOCIOLOGY LUZ HARRIS M.D. Performed By: #### C UU, ADDONUAPLUS #### [place] [address] [place] Ketones Ql (U) 3+ High Negative [facility] Comment on above: Order Comment: Name Collection Type:: Clean-Voided Midstream Performed By: #### C UU, ADDONUAPLUS #### [place] [address] [place] Leukocyte esterase Test strip Ql (U) 1+ High Negative [facility] Comment on above: Order Comment: Name Collection Type:: Clean-Voided Midstream Performed By: #### C UU, ADDONUAPLUS #### [facility] [address] [place] [address] [place] Nitrite,Urine Negative Normal Negative [facility] Comment on above: Order Comment: Name Collection Type:: Clean-Voided Midstream Performed By: #### C UU, ADDONUAPLUS #### [address] Occult Blood,Urine Negative Normal Negative [facility] Comment on above: Order Comment: Name Collection Type:: Clean-Voided Midstream Result Comment: PERF ORMED BY: [place] [address] PATHOLOGIST ASSISTANT PROFESSOR OF SOCIOLOGY LUZ HARRIS M.D. Performed By: #### C UU, ADDONUAPLUS #### [address] pH (U) 6.0 [pH] Normal 5.0-9.0 [facility] Comment on above: Order Comment: Name Collection Type:: Clean-Voided Midstream Performed By: #### C UU, ADDONUAPLUS #### [address] Protein (U) [Mass/Vol] 100 mg/dL High Negative [facility] Comment on above: Order Comment: Name Collection Type:: Clean-Voided Midstream Performed By: #### C UU, ADDONUAPLUS #### [place] [address] [place] RBC,Urine 3-4 Normal 0-4 [facility] Comment on above: Order Comment: Name Collection Type:: Clean-Voided Midstream Performed By: #### C UU, ADDONUAPLUS #### [address] Specificy [place],Urine 1.029 Normal 1.001-1.030 [facility] Comment on above: Order Comment: Name Collection Type:: Clean-Voided Midstream Performed By: #### C UU, ADDONUAPLUS #### [place] [address] [place] Squamous Epithelial Cell,Urine 5-9 High 0-2 [facility] Comment on above: Order Comment: Name Collection Type:: Clean-Voided Midstream Performed By: #### C UU, ADDONUAPLUS #### [place] [address] [place] Urobilinogen,Urine Normal Normal Normal [facility] Comment on above: Order Comment: Name Collection Type:: Clean-Voided Midstream Performed By: #### C UU, ADDONUAPLUS #### [facility] [address] [place] [address] WBC,Urine 10-19 High 0-4 [facility] Comment on above: Order Comment: Name Collection Type:: Clean-Voided Midstream Performed By: #### C UU, ADDONUAPLUS #### [facility] [address] [place] [address] ECG 12 lead ECGon 02-20-2023 ECG 12 lead ECG [facility] Main [place] [address] [place] [address] Electrocardiograph Report Signed Patient: Zack Snow MR#: [id number] : 1960 Acct:[id number] Age/Sex: 62 / F ADM Date: 02/20/23 Loc: ER Room: Type: [facility] ER Attending Dr: Ordering Provider: Chinedu Mena Jr, MD Date of Service: 02/20/23 ECG/ECG 12 lead ECG: Abdominal Pain Copies to: Test Reason : Blood Pressure : / mmHG Vent. Rate : 093 BPM Atrial Rate : 093 BPM P-R Int : 138 ms QRS Dur : 080 ms QT Int : 386 ms P-R-T Axes : 051 077 013 degrees QTc Int : 479 ms Normal sinus rhythm Normal ECG No previous ECGs available Confirmed by CHINEDU MENA MD ([id number]) on 02/21/2023 6:07:17 AM Referred By: Electronically Signed By:CHINEDU MENA MD Transcribed By: MUS Signed By Chinedu Mena Jr, MD 0607 Normal [facility] Eosinophils Auto (Bld) [#/Vo l]Ordered By: Chinedu Mena on 02-20-2023 Eosinophils (Bld) [#/Vol] 0.1 10*3/uL 0.0-0.45 [facility] Eosinophils/100 WBC Auto (Bl d)Ordered By: Chinedu Mena on 02-20-2023 Eosinophils/100 WBC (Bld) 1.3 % . [facility] Erythrocyte distribution wid th Auto (RBC) [Ratio]Ordered By: Chinedu Mena on 02-20-2023 Erythrocyte distribution width (RBC) [Ratio] 14.8 % 11.9-15.3 [facility] Globulin Calc (S) [Mass/Vol] Ordered By: Chinedu Mena on 02-20-2023 Globulin (S) [Mass/Vol] 2.9 g/dL [facility] Glucose [Mass/volume] in Ser um or PlasmaOrdered By: Chinedu Mena on 02-20-2023 Glucose [Mass/Vol] 80 mg/dL 70-100 [facility] Comment on above: ADA recommended refe rence rangeRandom Glucose Reference Range is dependent on time and content of last meal. Glucose of more than 200 mg/dL in a nonstressed, ambulatory subject supports the diagnosis of Diabetes Mellitus. HCG ( test) IA.rapi d Ql (U)Ordered By: Chinedu Mena on 02-20-2023 HCG ( test) Ql (U) Negative [facility] HCG,Urineon 02-20-2023 Beta HCG ( test) Ql (U) Negative Normal [facility] Comment on above: Result Comment: PERF ORMED BY: [place] [address] PATHOLOGIST ASSISTANT PROFESSOR OF SOCIOLOGY LUZ HARRIS M.D. Performed By: #### U HCG #### [address] Hematocrit Auto (Bld) [Volum e fraction]Ordered By: Chinedu Mena on 02-20-2023 Hematocrit (Bld) [Volume fraction] 39.3 % 34.0-46.4 [facility] Hemoglobin [Mass/volume] in BloodOrdered By: Chinedu Mena on 02-20-2023 Hemoglobin (Bld) [Mass/Vol] 13.4 g/dL 11.8-15.4 [facility] Ketones Auto test strip (U) [Mass/Vol]Ordered By: JESUS TEMP on 02-20-2023 Ketones (U) [Mass/Vol] 3+ Negative [facility] Leukocytes [#/volume] correc chau for nucleated erythrocytes in Blood by Automated counOrdered By: Chinedu Mena on 02-20-2023 WBC corrected for nucl RBC Auto (Bld) [#/Vol] 6.5 10*3/uL 3.8-11.6 [facility] Lipaseon 02-20-2023 Lipase [Catalytic activity/Vol] 16.0 U/L Normal 11.0-82.0 [facility] Comment on above: Result Comment: PERF ORMED BY: [facility] [address] [place] [id number] PATHOLOGIST ASSISTANT PROFESSOR OF SOCIOLOGY LUZ HARRIS M.D. Performed By: #### H S TROP, CK, CMP, LIPASE, CBC #### [facility] [address] Lipase [Enzymatic activity/v olume] in Serum or PlasmaOrdered By: Chinedu Mena on 02-20-2023 Lipase [Catalytic activity/Vol] 16.0 U/L 11.0-82.0 [facility] Lymphocytes Auto (Bld) [#/Vo l]Ordered By: Chinedu Mena on 02-20-2023 Lymphocytes (Bld) [#/Vol] 0.8 10*3/uL 1.00-4.8 [facility] Lymphocytes/100 WBC Auto (Bl d)Ordered By: Chinedu Mena on 02-20-2023 Lymphocytes/100 WBC (Bld) 12.0 % . [facility] MCH Auto (RBC) [Entitic mass ]Ordered By: Chinedu Mena on 02-20-2023 MCH (RBC) [Entitic mass] 27.9 pg 24.7-34.3 [facility] MCHC Auto (RBC) [Mass/Vol]Or dered By: Chinedu Mena on 02-20-2023 MCHC (RBC) [Mass/Vol] 34.1 g/dL 32.0-35.0 [facility] MCV Auto (RBC) [Entitic vol] Ordered By: Chinedu Mena on 02-20-2023 MCV (RBC) [Entitic vol] 81.9 fL 80-100 [facility] Monocyte distribution width [Entitic volume] in Blood by AutomatedOrdered By: Chinedu Mena on 02-20-2023 Monocyte distribution width Auto (Bld) [Entitic vol] 19.21 % 0.00-20.00 [facility] Monocytes Auto (Bld) [#/Vol] Ordered By: Chinedu Mena on 02-20-2023 Monocytes (Bld) [#/Vol] 0.5 10*3/uL 0.0-0.8 [facility] Monocytes/100 WBC Auto (Bld) Ordered By: Chinedu Mena on 02-20-2023 Monocytes/100 WBC (Bld) 7.1 % . [facility] Neutrophils Auto (Bld) [#/Vo l]Ordered By: Chinedu Mena on 02-20-2023 Neutrophils (Bld) [#/Vol] 5.2 10*3/uL 1.8-7.7 [facility] Neutrophils/100 WBC Auto (Bl d)Ordered By: Chinedu Mena on 02-20-2023 Neutrophils/100 WBC (Bld) 79.2 % . [facility] Nitrite Test strip Ql (U)Ord ered By: PROVIDER TEMP on 02-20-2023 Nitrite Ql (U) Negative Negative [facility] No Panel InformationOrdered By: Chinedu Mena on 02-20-2023 Estimated GFR (CKD-EPI) > 60.0 mL/Min [facility] Creatinine Clearance (Chem 41.16 [facility] Nucleated erythrocytes [Pres ence] in Blood by Automated countOrdered By: Chinedu Mena on 02-20-2023 Nucleated RBC Auto Ql (Bld) 0.0 /100{WBC} 0-0.5 [facility] Platelet mean volume Auto (B ld) [Entitic vol]Ordered By: Chinedu Mena on 02-20-2023 Platelet mean volume (Bld) [Entitic vol] 8.0 fL 6.3-10.7 [facility] Platelets Auto (Bld) [#/Vol] Ordered By: Chinedu Mena on 02-20-2023 Platelets (Bld) [#/Vol] 243 10*3/uL 150-450 [facility] Potassium [Moles/volume] in Serum or PlasmaOrdered By: Chinedu Mena on 02-20-2023 Potassium [Moles/Vol] 3.7 mmol/L 3.5-5.1 [facility] Protein Auto test strip (U) [Mass/Vol]Ordered By: PROVIDER TEMP on 02-20-2023 Protein (U) [Mass/Vol] 100 mg/dL Negative Fi [facility] Protein [Mass/volume] in Ser um or PlasmaOrdered By: Chinedu Mena on 02-20-2023 Protein [Mass/Vol] 7.5 g/dL 6.4-8.9 [facility] RBC Auto (Bld) [#/Vol]Ordere d By: Chinedu Mena on 02-20-2023 RBC (Bld) [#/Vol] 4.80 10*6/uL 3.60-5.00 [facility] Serum or plasma albumin/glob ulin mass ratioOrdered By: Chinedu Mena on 02-20-2023 Albumin/Globulin [Mass ratio] 1.6 {ratio} [facility] Serum or plasma anion gap de terminationOrdered By: Chinedu Mena on 02-20-2023 Anion gap [Moles/Vol] 15.9 mmol/L 6.0-15.0 [facility] Sodium [Moles/volume] in Ser um or PlasmaOrdered By: Chinedu Mena on 02-20-2023 Sodium [Moles/Vol] 143 mmol/L 136-145 [facility] Specific gravity Auto test s trip (U) [Rel density]Ordered By: PROVIDER TEMP on 02-20-2023 Specific gravity (U) [Rel density] 1.029 1.001-1.030 [facility] Squamous epithelial cells de tection in urine sediment by light microscopyOrdered By: PROVIDER TEMP on 02-20-2023 Epithelial cells.squamous LM Ql (Urine sed) 5-9 [HPF] 0-2 [facility] Troponin I High Sensitivityo n 02-20-2023 Troponin I High Sensitivity 3.4 pg/mL Normal 0.0-15.0 [facility] Comment on above: Result Comment: PERF ORMED BY: [place] [address] PATHOLOGIST ASSISTANT PROFESSOR OF SOCIOLOGY LUZ HARRIS M.D. Performed By: #### H S TROP, CK, CMP, LIPASE, CBC #### [address] Troponin I.cardiac [Mass/vol ume] in Serum or Plasma by Detection limit <= 0.01 ng/Ordered By: Chinedu Mena on 02-20-2023 Troponin I.cardiac DL <= 0.01 ng/mL [Mass/Vol] 3.4 pg/mL 0.0-15.0 [facility] Urea nitrogen [Mass/volume] in Serum or PlasmaOrdered By: Chinedu Mena on 02-20-2023 Urea nitrogen [Mass/Vol] 37 mg/dL 12-20 [facility] Urine Cultureon 02-20-2023 Bacteria identified Cx Nom (U) >100,000 colonies/ml mixed bacterial skin contaminants 2 Days PERFORMED BY: [place] [address] PATHOLOGIST ASSISTANT PROFESSOR OF SOCIOLOGY LUZ HARRIS M.D. Normal [facility] Comment on above: Performed By: #### H S TROP, CK, CMP, LIPASE, CBC #### [address] Urine bacteria detection by automated methodOrdered By: PROVIDER TEMP on 02-20-2023 Bacteria Auto Ql (U) None seen None Seen [facility] Urine clarity by refractomet ry automatedOrdered By: PROVIDER TEMP on 02-20-2023 Clarity Refractometry automated (U) Cloudy Clear [facility] Urine glucose measurement by automated test strip (mass/volume)Ordered By: PROVIDER TEMP on 02-20-2023 Glucose Auto test strip (U) [Mass/Vol] Normal mg/dL Normal [facility] Urine hemoglobin detection b y automated test stripOrdered By: PROVIDER TEMP on 02-20-2023 Hemoglobin Auto test strip Ql (U) Negative Negative [facility] Urine leukocyte esterase det ection by automated test stripOrdered By: PROVIDER TEMP on 02-20-2023 Leukocyte esterase Auto test strip Ql (U) 1+ Negative [facility] Urine sediment renal epithel ial cell count by microscopy (number/high power field)Ordered By: PROVIDER TEMP on 02-20-2023 Epithelial cells.renal LM.HPF (Urine sed) [#/Area] N/A [facility] Urobilinogen Auto test strip (U) [Mass/Vol]Ordered By: PROVIDER TEMP on 02-20-2023 Urobilinogen (U) [Mass/Vol] Normal mg/dL Normal [facility] WBC Auto (Bld) [#/Vol]Ordere d By: Chinedu Mena on 02-20-2023 WBC (Bld) [#/Vol] 6.5 10*3/uL 3.8-11.6 [facility] pH Auto test strip (U)Ordere d By: JESUS VALENZUELA on 02-20-2023 pH (U) 6.0 [pH] 5.0-9.0 [facility] Coding Summaryon 02-17-2023 Coding Summary Normal [facility] CNOVon 02-15-2023 CNOV Normal [facility] ED Clinical Summaryon 2022 ED Clinical Summary Normal [facility] ED Patient Summaryon 023 ED Patient Summary Normal [facility] Patient Handouton 02-10-2023 Patient Handout Normal [facility] Urgent Care Recordon 023 Urgent Care Record Normal [facility] CNOVon 02-02-2023 CNOV Normal [facility] CREATININE, BLOOD (POC)on Creatinine [Mass/Vol] 0.80 mg/dL 0.7 - 1.4 mg/dL [facility] eGFR (POCT) [facility] No Panel Informationon 06-07 [facility] LUNG DIFFUSION CAPACITY (ESTHER O)on 02-23-2022 [facility] NITRIC OXIDE, EXHALEDon 01-28 [facility] Otolaryngology Office/Clinic Noteon 01-12-2017 Otolaryngology Office/Clinic Note Chief Complaint sinus follow upHistory of Present Illness History of Present Illness HPI: Patient states that the medicine seems to be working better since the change. Feels better for the most part. Occ will get some drainage and coughing, but this is much less often. Takes singulair on/offReview of Systems General Adult ROS Fatigue: No Appetite change: No Other General: No Weakness: No Weight gain: No Weight Loss: No EENMT Bleeding gums: No Dental pain: No Ear pain: No Facial pain: No Hearing loss: No Hoarseness: No Mouth lesions: No Nasal congestion: Yes Nasal discharge: Yes Nosebleeds: No Other EENMT: No Postnasal drainage: Yes Sore_throat: No Tinnitus: No Vision Changes: No Gastrointestinal Vomiting: Yes Respiratory Cough: Yes Hemoptysis: No Other Respiratory: No Shortness_of_breath: Yes Snoring: No Sputum production: Yes Wheezing: NoPhysical Exam Vitals & Measurements BP: 148/98 WT: 91.50 kg Overall:[Communication mode is clear, normal] [Appearance- no acute distress, appears stated age and is well nourished] Assistive device:[ none] Head:[normocephalic, no trauma, lesions or asymmetry] Ocular appearance:[ Conjuctiva- clear and bright, no drainage or infection. EOM intact] Ears:[ external ear- normal shape, no signs of infection, mass, lesion or asymmetry bilaterally. Ear canal is healthy, free from wax and infection, bilaterally] [Eardrum-healthy, no sign of infection, trauma, perforation or infection] [Middle ear- healthy, no obvious fluid present or infection] Nose:[ External- healthy, no sign of asymmetry, lesion or infection] Septum:[ Midline, no sign of perforation, infection or deviation] Turbinates:[ normal, no hypertrophy, mass or polyp] Nasal passages:[ clear, no infection, drainage or obstruction] Oral cavity:[ Normal, tongue healthy no mass, lesion or infection. Soft and hard palate normal. Bimanual palpation is normal. Mucosa moist, free from infection][ Benign gingiva, good dental hygiene][Tonsil size is normal, no asymmetry, mass or lesionn][oropharynx- clear, no evidence of post nasal drip, cobblestoning or other abnormalities] Neck:[ Salivary gland exam is normal, no enlargement or tenderness. No lymph node enlargement. TMJ exam is normal, no tenderness noted][ Thyroid exam is normal, no masses or tenderness] Mental Status:[Alert and oriented x3][Mood and affect normal][Gait is normal]. Additional Vitals BP Position/Location: Sitting, Left arm Peripheral Pulse Rate: 77 bpmAssessment/Plan 1. Nasal congestion return prn problems Ordered: ipratropium nasal, 2 sprays, Nasal, TID, X 30 days, # 1 EA, 6 Refill(s), 08/10/17 13:45:00 EDT, Pharmacy: [id number] 2. Post-nasal drip Ordered: ipratropium nasal, 2 sprays, Nasal, TID, X 30 days, # 1 EA, 6 Refill(s), 08/10/17 13:45:00 EDT, Pharmacy: [id number] List/Past Medical History Ongoing Allergic rhinitis Chronic rhinitis Chronic sinusitis, unspecified Gastroesophageal reflux disease without esophagitis Historical No qualifying dataProcedure/Surgical History hyserectomy, orif fracture repair.Medications Flonase 50 mcg/inh nasal spray, 1 sprays, Nasal ipratropium 42 mcg/inh (0.06%) nasal spray, 2 sprays, Nasal, TID, 6 refills loratadine 10 mg oral tablet, 10 mg, 1 tabs, Oral, Daily montelukast 10 mg oral tablet, 10 mg, 1 tabs, Oral, Daily montelukast 10 mg oral tablet, 10 mg, 1 tabs, Oral, Daily, 11 refills mupirocin 2% nasal ointment, 1 tarah, Nasal, BID omeprazole 40 mg oral delayed release capsule Premarin, 1.25 mg, Oral, Daily SudafedAllergies sulfa drugs (nausea)Social History Alcohol Current Substance Abuse Denies All Tobacco Never smokerFamily History Diabetes: Father. Heart attack: Father. Hypertension: Mother.Diagnostic Results No qualifying data available. No qualifying data available. No qualifying data available. No qualifying data available.Electronically signed by G Cathleen fair PA-C 01/12/17 13:46 EDT Normal [facility] Otolaryngology Office/Clinic Noteon 12-05-2016 Otolaryngology Office/Clinic Note Chief Complaint follow up rhinitisHistory of Present Illness History of Present Illness HPI: having congestion in throat. pt states the sore spot has come back in my throat. some post nasal drip in am, and will cough. hx of ct scan showed mild left side sinus diseaseReview of Systems General Adult ROS Fatigue: No Appetite change: No Weakness: No Weight gain: No Weight Loss: No Cardiovascular Chest pain/pressure: No EENMT Ear pain: No Facial pain: No Hearing loss: No Hoarseness: Yes Nasal congestion: No Nasal discharge: No Postnasal drainage: Yes Sore_throat: Yes Tinnitus: No Vision Changes: No Gastrointestinal Abdominal pain: No Constipation: No Diarrhea: No Dyphagia: No Heartburn: No Nausea: Yes Vomiting: Yes Genitourinary Decreased urine output: No Hematologic/Lymphatic Bleeding tendencies: No Bruising: No Musculoskeletal Joint pain: No Muscle aches: No Neurological Abnormal Gait: No Headache: No Incoordination: No Memory problems: No Seizures: No Psychiatric Anxiety: No Depression: No Poor sleep quality: No Respiratory Cough: Yes Shortness_of_breath: No Snoring: No Wheezing: No Skin Change in skin color: No Itching: No Rash: YesPhysical Exam Vitals & Measurements BP: 162/96 HT: 164 cm WT: 90.6 kg BMI: 33.69 Overall:[Communication mode is clear, normal] [Appearance- no acute distress, appears stated age and is well nourished] Assistive device:[ none] Head:[normocephalic, no trauma, lesions or asymmetry] Ocular appearance:[ Conjuctiva- clear and bright, no drainage or infection. EOM intact] Ears:[ external ear- normal shape, no signs of infection, mass, lesion or asymmetry bilaterally. Ear canal is healthy, free from wax and infection, bilaterally] [Eardrum-healthy, no sign of infection, trauma, perforation or infection] [Middle ear- healthy, no obvious fluid present or infection] Nose:[ External- healthy, no sign of asymmetry, lesion or infection] Septum:[ deviation, noted] Turbinates:[ normal, no hypertrophy, mass or polyp] Nasal passages:[ clear, no infection, drainage or obstruction] Oral cavity:[ Normal, tongue healthy no mass, lesion or infection. Soft and hard palate normal. Bimanual palpation is normal. Mucosa moist, free from infection][ Benign gingiva, good dental hygiene][Tonsil size is normal, no asymmetry, mass or lesionn][oropharynx- clear, no evidence of post nasal drip, cobblestoning or other abnormalities][ hard palate has small area of central redness, non ulceration] Neck:[ Salivary gland exam is normal, no enlargement or tenderness. No lymph node enlargement. TMJ exam is normal, no tenderness noted][ Thyroid exam is normal, no masses or tenderness] Additional Vitals Body Mass Index Measured: 33.69 kg/m2 BP Position/Location: Sitting, Right arm Peripheral Pulse Rate: 73 bpmAssessment/Plan 1. Chronic rhinitis recheck 1 month, will try cream for sore spot in mouth. call office if problems Ordered: fluocinonide topical, 1 tarah, Topical, Daily, X 14 days, # 120 g, 0 Refill(s), 12/19/16 14:56:00 EDT, Pharmacy: [id number] ipratropium nasal, 2 sprays, Nasal, qPM, # 15 mL, 0 Refill(s), 01/04/17 14:57:00 EDT, Pharmacy: [facility]45 montelukast, 1 tabs, Oral, Daily, # 30 tabs, 0 Refill(s), Pharmacy: [facility] [id number] List/Past Medical History Ongoing Allergic rhinitis Chronic rhinitis Chronic sinusitis, unspecified Gastroesophageal reflux disease without esophagitis Historical No qualifying dataProcedure/Surgical History hyserectomy, orif fracture repair.Medications Flonase 50 mcg/inh nasal spray, 1 sprays, Nasal fluocinonide 0.1% topical cream, 1 tarah, Topical, Daily ipratropium 42 mcg/inh (0.06%) nasal spray, 2 sprays, Nasal, qPM loratadine 10 mg oral tablet, 10 mg, 1 tabs, Oral, Daily montelukast 10 mg oral tablet, 10 mg, 1 tabs, Oral, Daily mupirocin 2% nasal ointment, 1 tarah, Nasal, BID omeprazole 40 mg oral delayed release capsule Premarin, 1.25 mg, Oral, Daily SudafedAllergies sulfa drugs (nausea)Social History Alcohol Current Substance Abuse Denies All Tobacco Never smokerFamily History Diabetes: Father. Heart attack: Father. Hypertension: Mother.Diagnostic Results No qualifying data available. No qualifying data available. No qualifying data available. No qualifying data available.Electronically signed by Cathleen Breen PA-C 12/05/16 15:00 EDT Normal [facility] No Panel Information [facility] Vital Signs Date Time Vital Sign Value Performing Clinician Facility 12-12-2023 15:30-0400 Diastolic blood pressure 100 mm[Hg] Sara Horan MD Work Phone: [facility] 12-12-2023 15:30-0400 Heart rate 86 /min Sara Horan MD Work Phone: [facility] 12-12-2023 15:30-0400 Respiratory rate 16 /min Sara Horan MD Work Phone: [facility] 12-12-2023 15:30-0400 SaO2% (BldA) [Mass fraction] 98 % Sara Horan MD Work Phone: [facility] 12-12-2023 15:30-0400 Systolic blood pressure 180 mm[Hg] Sara Horan MD Work Phone: [facility] 12-12-2023 14:16-0400 Body temperature 97.5 [degF] Sara Horan MD Work Phone: [facility] 12-05-2023 15:15-0400 Body height 167.6 cm Sara Horan MD Work Phone: [facility] 12-05-2023 15:15-0400 Body mass index (BMI) [Ratio] 16.24 kg/m2 Sara Horan MD Work Phone: [facility] 12-05-2023 15:15-0400 Body temperature 98.29 [degF] Sara Horan MD Work Phone: [facility] 12-05-2023 15:15-0400 Body weight 45.63 kg Sara Horan MD Work Phone: [facility] 12-05-2023 15:15-0400 Diastolic blood pressure 68 mm[Hg] Sara Horan MD Work Phone: [facility] 12-05-2023 15:15-0400 Heart rate 91 /min Sara Horan MD Work Phone: [facility] 12-05-2023 15:15-0400 SaO2% (BldA) [Mass fraction] 98 % Sara Horan MD Work Phone: [facility] 12-05-2023 15:15-0400 Systolic blood pressure 96 mm[Hg] Sara Horan MD Work Phone: [facility] 11-22-2023 10:25-0400 Body height 167 cm Ganesh Plescia PA-C Work Phone: [facility] 11-22-2023 10:25-0400 Body mass index (BMI) [Ratio] 17.31 kg/m2 Ganesh Plescia PA-C Work Phone: [facility] 11-22-2023 10:25-0400 Body weight 48.26 kg Ganesh Plescia PA-C Work Phone: [facility] 11-22-2023 10:25-0400 Diastolic blood pressure 101 mm[Hg] Ganesh Plescia PA-C Work Phone: [facility] 11-22-2023 10:25-0400 Heart rate 98 /min Ganesh Plescia PA-C Work Phone: [facility] 11-22-2023 10:25-0400 Systolic blood pressure 151 mm[Hg] Ganesh Plescia PA-C Work Phone: [facility] 11-08-2023 14:22-0400 Body height 167.6 cm Pac 3 Work Phone: [facility] 11-08-2023 14:22-0400 Body mass index (BMI) [Ratio] 17.26 kg/m2 Pac 3 Work Phone: [facility] 11-08-2023 14:22-0400 Body temperature 97.7 [degF] Pac 3 Work Phone: [facility] 11-08-2023 14:22-0400 Body weight 48.5 kg Pac 3 Work Phone: [facility] 11-08-2023 14:22-0400 Diastolic blood pressure 62 mm[Hg] Pacc 3 Work Phone: [facility] 11-08-2023 14:22-0400 Heart rate 76 /min Pacc 3 Work Phone: [facility] 11-08-2023 14:22-0400 Respiratory rate 16 /min Pacc 3 Work Phone: [facility] 11-08-2023 14:22-0400 SaO2% (BldA) [Mass fraction] 93 % Pacc 3 Work Phone: [facility] 11-08-2023 14:22-0400 Systolic blood pressure 98 mm[Hg] Pacc 3 Work Phone: [facility] 10-27-2023 08:59-0400 Body height 167 cm Ganesh Plescia PA-C Work Phone: [facility] 10-27-2023 08:59-0400 Body mass index (BMI) [Ratio] 17.48 kg/m2 Ganesh Plescia PA-C Work Phone: [facility] 10-27-2023 08:59-0400 Body weight 48.76 kg Ganesh Plescia PA-C Work Phone: [facility] 10-27-2023 08:59-0400 Diastolic blood pressure 90 mm[Hg] Ganesh Plescia PA-C Work Phone: [facility] 10-27-2023 08:59-0400 Heart rate 105 /min Ganesh Plescia PA-C Work Phone: [facility] 10-27-2023 08:59-0400 Systolic blood pressure 161 mm[Hg] Ganesh Plescia PA-C Work Phone: [facility] 10-26-2023 12:03-0400 Body height 167 cm Natalia Torres MD Work Phone: [facility] 10-26-2023 11:59-0400 Body mass index (BMI) [Ratio] 17.71 kg/m2 Natalia Torres MD Work Phone: [facility] 10-26-2023 11:59-0400 Body temperature 97.59 [degF] Natalia Torres MD Work Phone: [facility] 10-26-2023 11:59-0400 Body weight 49.4 kg Natalia Torres MD Work Phone: [facility] 10-26-2023 11:59-0400 Diastolic blood pressure 70 mm[Hg] Natalia Torres MD Work Phone: [facility] 10-26-2023 11:59-0400 Heart rate 89 /min Natalia Torres MD Work Phone: [facility] 10-26-2023 11:59-0400 Respiratory rate 18 /min Natalia Torres MD Work Phone: [facility] 10-26-2023 11:59-0400 SaO2% (BldA) [Mass fraction] 100 % Natalia Torres MD Work Phone: [facility] Comment on above: 10-26-2023 11:59-0400 Systolic blood pressure 103 mm[Hg] Natalia Torres MD Work Phone: [facility] 10-19-2023 13:54-0400 Body height 167.6 cm Leonard Mckeon MD, PhD Work Phone: [facility] 10-19-2023 13:54-0400 Body mass index (BMI) [Ratio] 17.86 kg/m2 Leonard Mckeon MD, PhD Work Phone: [facility] 10-19-2023 13:54-0400 Body weight 50.17 kg Leonard Mckeon MD, PhD Work Phone: [facility] 10-19-2023 13:54-0400 Diastolic blood pressure 80 mm[Hg] Leonard Mckeon MD, PhD Work Phone: [facility] 10-19-2023 13:54-0400 Heart rate 106 /min Leonard Mckeon MD, PhD Work Phone: [facility] 10-19-2023 13:54-0400 Systolic blood pressure 128 mm[Hg] Leonard Mckeon MD, PhD Work Phone: [facility] 10-19-2023 11:15-0400 Body height 167.6 cm Hanna Bell MD Work Phone: [facility] 10-19-2023 11:15-0400 Body mass index (BMI) [Ratio] 17.79 kg/m2 Hanna Bell MD Work Phone: [facility] 10-19-2023 11:15-0400 Body weight 49.99 kg Hanna Bell MD Work Phone: [facility] 10-19-2023 11:15-0400 Diastolic blood pressure 80 mm[Hg] Hanna Bell MD Work Phone: [facility] 10-19-2023 11:15-0400 Heart rate 106 /min Hanna Bell MD Work Phone: [facility] 10-19-2023 11:15-0400 Respiratory rate 22 /min Hanna Bell MD Work Phone: [facility] 10-19-2023 11:15-0400 SaO2% (BldA) [Mass fraction] 99 % Hanna Bell MD Work Phone: [facility] 10-19-2023 11:15-0400 Systolic blood pressure 128 mm[Hg] Hanna Bell MD Work Phone: [facility] 10-18-2023 09:46-0400 Body mass index (BMI) [Ratio] 17.8 kg/m2 Smitha Gramajo APRN.CNP Work Phone: [facility] 10-18-2023 09:46-0400 Body weight 50 kg Smihta Gramajo APRN.CNP Work Phone: [facility] 10-18-2023 09:46-0400 Diastolic blood pressure 84 mm[Hg] Smitha Gramajo APRN.CNP Work Phone: [facility] 10-18-2023 09:46-0400 Heart rate 95 /min Smitha Gramajo APRN.MACHINE MAINTENANCE SUPERVISOR Work Phone: [facility] 10-18-2023 09:46-0400 SaO2% (BldA) [Mass fraction] 97 % Smitha Gramajo APRN.MACHINE MAINTENANCE SUPERVISOR Work Phone: [facility] Comment on above: ra 10-18-2023 09:46-0400 Systolic blood pressure 116 mm[Hg] Smitha Gramajo APRN.MACHINE MAINTENANCE SUPERVISOR Work Phone: [facility] 10-12-2023 14:04-0400 Body mass index (BMI) [Ratio] 17.8 kg/m2 Joelle Ren MD Work Phone: [facility] 10-12-2023 14:04-0400 Body weight 50 kg Joelle Ren MD Work Phone: [facility] 10-12-2023 14:04-0400 Heart rate 68 /min Joelle Ren MD Work Phone: [facility] 10-12-2023 14:04-0400 SaO2% (BldA) [Mass fraction] 99 % Joelle Ren MD Work Phone: [facility] 10-05-2023 15:20-0400 Body height 167.6 cm April Marquez MD Work Phone: [facility] 10-05-2023 15:20-0400 Body mass index (BMI) [Ratio] 18.09 kg/m2 April Marquez MD Work Phone: [facility] 10-05-2023 15:20-0400 Body temperature 98.2 [degF] April Marquez MD Work Phone: [facility] 10-05-2023 15:20-0400 Body weight 50.8 kg April Marquez MD Work Phone: [facility] 10-05-2023 15:20-0400 Diastolic blood pressure 88 mm[Hg] April Marquez MD Work Phone: [facility] 10-05-2023 15:20-0400 Heart rate 102 /min April Marquez MD Work Phone: [facility] 10-05-2023 15:20-0400 SaO2% (BldA) [Mass fraction] 99 % April Marquez MD Work Phone: [facility] 10-05-2023 15:20-0400 Systolic blood pressure 148 mm[Hg] April Marquez MD Work Phone: [facility] 10-05-2023 15:02-0400 Body height 167.[address] Work Phone: [facility] 10-05-2023 15:02-0400 Body mass index (BMI) [Ratio] 18.08 kg/m2 Carrie Igel RD Work Phone: [facility] 10-05-2023 15:02-0400 Body temperature 98.2 [degF] Carrie Igel RD Work Phone: [facility] 10-05-2023 15:02-0400 Body weight 50.[address] Work Phone: [facility] 10-05-2023 15:02-0400 Diastolic blood pressure 88 mm[Hg] Carrie Igel RD Work Phone: [facility] 10-05-2023 15:02-0400 Heart rate 102 /min Carrie Igel RD Work Phone: [facility] 10-05-2023 15:02-0400 SaO2% (BldA) [Mass fraction] 99 % Carrie Igel RD Work Phone: [facility] 10-05-2023 15:02-0400 Systolic blood pressure 148 mm[Hg] Carrie Igel RD Work Phone: [facility] 09-07-2023 13:58-0400 Body height 167.6 cm Sara Horan MD Work Phone: [facility] 09-07-2023 13:58-0400 Body temperature 98.49 [degF] Sara Horan MD Work Phone: [facility] 09-07-2023 13:58-0400 Body weight 50.62 kg Sara Horan MD Work Phone: [facility] 09-07-2023 13:58-0400 Diastolic blood pressure 67 mm[Hg] Sara Horan MD Work Phone: [facility] 09-07-2023 13:58-0400 Heart rate 107 /min Sara Horan MD Work Phone: [facility] 09-07-2023 13:58-0400 SaO2% (BldA) [Mass fraction] 98 % Sara Horan MD Work Phone: [facility] 09-07-2023 13:58-0400 Systolic blood pressure 97 mm[Hg] Sara Horan MD Work Phone: [facility] 08-02-2023 12:33-0500 Diastolic blood pressure 85 mm[Hg] Pacc 4 Work Phone: [facility] 08-02-2023 12:33-0500 Systolic blood pressure 139 mm[Hg] Pacc 4 Work Phone: [facility] 08-02-2023 11:55-0500 Body height 167.6 cm Pacc 4 Work Phone: [facility] 08-02-2023 11:55-0500 Body temperature 97.59 [degF] Pacc 4 Work Phone: [facility] 08-02-2023 11:55-0500 Body weight 50.7 kg Pacc 4 Work Phone: [facility] 08-02-2023 11:55-0500 Heart rate 97 /min Pacc 4 Work Phone: [facility] 08-02-2023 11:55-0500 Respiratory rate 16 /min Pacc 4 Work Phone: [facility] 08-02-2023 11:55-0500 SaO2% (BldA) [Mass fraction] 100 % Pac 4 Work Phone: [facility] 07-20-2023 10:04-0500 Body weight 50.3 kg Mel Palacio MD Work Phone: [facility] 07-20-2023 10:04-0500 Diastolic blood pressure 94 mm[Hg] Mel Palacio MD Work Phone: [facility] 07-20-2023 10:04-0500 Heart rate 103 /min Mel Palacio MD Work Phone: [facility] 07-20-2023 10:04-0500 SaO2% (BldA) [Mass fraction] 100 % Mel Palacio MD Work Phone: [facility] 07-20-2023 10:04-0500 Systolic blood pressure 156 mm[Hg] Mel Palacio MD Work Phone: [facility] 03-22-2023 10:30-0400 Body height 165.1 cm Sharri Ly DO Work Phone: [facility] 03-22-2023 10:30-0400 Body weight 51.76 kg Sharri Ly DO Work Phone: [facility] 03-22-2023 10:30-0400 Diastolic blood pressure 88 mm[Hg] Sharri Ly DO Work Phone: [facility] 03-22-2023 10:30-0400 Heart rate 99 /min Sharri Ly DO Work Phone: [facility] 03-22-2023 10:30-0400 SaO2% (BldA) [Mass fraction] 98 % Sharri Ly DO Work Phone: [facility] 03-22-2023 10:30-0400 Systolic blood pressure 140 mm[Hg] Sharri Ly DO Work Phone: [facility] 02-20-2023 21:30-0400 Diastolic blood pressure 103 mm[Hg] DO [facility] Work Phone: [facility] 02-20-2023 21:30-0400 Heart rate 86 /min DO John Mendes Work Phone: [facility] 02-20-2023 21:30-0400 Respiratory rate 18 /min DO John Mendes Work Phone: [facility] 02-20-2023 21:30-0400 SaO2% (BldA) [Mass fraction] 100 % DO John Mendes Work Phone: [facility] 02-20-2023 21:30-0400 Systolic blood pressure 173 mm[Hg] DO John Mendes Work Phone: [facility] 02-20-2023 18:47-0400 Body height 167.64 cm DO John Mendes Work Phone: [facility] 02-20-2023 18:47-0400 Body temperature 98 [degF] DO John Mendes Work Phone: [facility] 02-20-2023 18:47-0400 Body weight 46.2 kg DO John Mendes Work Phone: [facility] 02-15-2023 11:14-0400 Body weight 49.9 kg Smitha Gramajo APRN.MACHINE MAINTENANCE SUPERVISOR Work Phone: [facility] 02-15-2023 11:14-0400 Diastolic blood pressure 89 mm[Hg] Smitha Gramajo APRN.MACHINE MAINTENANCE SUPERVISOR Work Phone: [facility] 02-15-2023 11:14-0400 Heart rate 89 /min Smitha Gramajo APRN.MACHINE MAINTENANCE SUPERVISOR Work Phone: [facility] 02-15-2023 11:14-0400 SaO2% (BldA) [Mass fraction] 100 % Smitha Gramajo APRN.MACHINE MAINTENANCE SUPERVISOR Work Phone: [facility] 02-15-2023 11:14-0400 Systolic blood pressure 138 mm[Hg] Smitha Gramajo APRN.MACHINE MAINTENANCE SUPERVISOR Work Phone: [facility] 02-02-2023 11:21-0400 Body weight 48.99 kg Joelle Ren MD Work Phone: [facility] 02-02-2023 11:21-0400 Heart rate 87 /min Joelle Ren MD Work Phone: [facility] 02-02-2023 11:21-0400 SaO2% (BldA) [Mass fraction] 98 % Joelle Ren MD Work Phone: [facility] 07-21-2022 13:07-0500 Body weight 54.52 kg Joelle Ren MD Work Phone: [facility] 07-21-2022 13:07-0500 Heart rate 111 /min Joelle Ren MD Work Phone: [facility] 07-21-2022 13:07-0500 SaO2% (BldA) [Mass fraction] 99 % Joelle Ren MD Work Phone: [facility] 02-23-2022 09:09-0400 Body weight 55.79 kg Smitha Gramajo APRN.MACHINE MAINTENANCE SUPERVISOR Work Phone: [facility] 02-23-2022 09:09-0400 Diastolic blood pressure 78 mm[Hg] Smitha Gramajo APRN.MACHINE MAINTENANCE SUPERVISOR Work Phone: [facility] 02-23-2022 09:09-0400 Heart rate 94 /min Smitha Gramajo APRN.MACHINE MAINTENANCE SUPERVISOR Work Phone: [facility] 02-23-2022 09:09-0400 SaO2% (BldA) [Mass fraction] 99 % Smitha Gramajo APRN.MACHINE MAINTENANCE SUPERVISOR Work Phone: [facility] 02-23-2022 09:09-0400 Systolic blood pressure 121 mm[Hg] Smitha Gramajo APRN.MACHINE MAINTENANCE SUPERVISOR Work Phone: [facility] 11-24-2021 15:49-0400 Body temperature 97.9 [degF] Mel Palacio MD Work Phone: [facility] 11-24-2021 15:49-0400 Body weight 56.25 kg Mel Palacio MD Work Phone: [facility] 11-24-2021 15:49-0400 Diastolic blood pressure 79 mm[Hg] Mel Palacio MD Work Phone: [facility] 11-24-2021 15:49-0400 Heart rate 101 /min Mel Palacio MD Work Phone: [facility] 11-24-2021 15:49-0400 SaO2% (BldA) [Mass fraction] 100 % Mel Palacio MD Work Phone: [facility] 11-24-2021 15:49-0400 Systolic blood pressure 143 mm[Hg] Mel Palacio MD Work Phone: [facility] Encounters Encounter Date Encounter Type Care Provider Facility Start: 01-09-2024 End: 01-16-2024 Evaluation and management of inpatient Jessica Nosair Facility:[facility] Start: 01-01-2024 End: 01-01-2024 ambulatory JOHN MENDES Facility:[facility] [place] Start: 12-15-2023 End: 01-05-2024 Evaluation and management of inpatient ABEBA LIZZIE Facility:[facility] Start: 12-15-2023 Telephone encounter Azalia Lam RN General Surgery Comment on above: Patient Question (Co nstipation) Start: 12-14-2023 End: 12-14-2023 ambulatory JOHN MENDES SR Facility:[facility] Start: 12-14-2023 Patient encounter procedure Mark Mohr SACHI Work Phone: Hematology/Oncology Comment on above: Muscle soreness (Regina cinthya Dx) Start: 12-14-2023 End: 12-14-2023 ambulatory JOHN MENDES Facility[place] [place] Start: 12-13-2023 ambulatory Sara Horan MD Work Phone: Gastroenterology Comment on above: Zack snow Start: 12-12-2023 End: 12-12-2023 ambulatory JOHN MENDES SR Facility:[facility] Start: 12-12-2023 End: 12-12-2023 Subsequent hospital visit by physician Sara Horan MD Work Phone: Gastroenterology Comment on above: Pharyngeal dysphagia [R13.13] Start: 12-07-2023 Patient encounter procedure Mark Mohr LMT Work Phone: Hematology/Oncology Comment on above: Muscle soreness (Regina cinthya Dx) Start: 12-07-2023 End: 12-07-2023 ambulatory [facility] SR Facility:[facility] Start: 12-06-2023 Patient encounter procedure Mark Mohr LMT Work Phone: Hematology/Oncology Comment on above: Muscle soreness (Regina cinthya Dx) Start: 12-06-2023 End: 12-06-2023 [facility] Facility:[facility] Start: 12-05-2023 End: 12-05-2023 [facility] Facility:[facility] Start: 12-05-2023 End: 12-05-2023 Patient encounter procedure Sara Horan MD Work Phone: Gastroenterology Comment on above: Pharyngeal dysphagia (Primary Dx); Malnutrition of moderate degree (HCC) Start: 12-05-2023 End: 12-05-2023 [facility] Facility:[facility] Start: 12-05-2023 Telephone encounter Ashley Garcia RNknockout worker Comment on above: Education Of Patient /family Start: 11-29-2023 End: 11-29-2023 [facility] Facility:[facility] Start: 11-29-2023 Patient encounter procedure Mark Mohr LMT Work Phone: Hematology/Oncology Comment on above: Muscle soreness (Regina cinthya Dx) Start: 11-22-2023 End: 11-22-2023 [facility] Facility:[facility] Start: 11-22-2023 End: 11-22-2023 Patient encounter procedure Ganesh Richardson PA-C Work Phone: General Surgery Comment on above: Nausea (Primary Dx) Muscle soreness (Regina cinthya Dx) Pharyngeal dysphagia (Primary Dx); Pharyngoesophageal dysphagia Start: 11-22-2023 End: 11-22-2023 ambulatory JOHN MENDES Facility:[facility] Start: 11-22-2023 End: 11-22-2023 ambulatory JOHN Stanton [facility] Facility:[facility] Start: 11-22-2023 End: 11-22-2023 Subsequent hospital visit by physician [facility] (I-Stat) Radiology Comment on above: Chronic pulmonary as piration, sequela [T17.908S] Start: 11-14-2023 End: 11-14-2023 Emergency department patient visit Curt Jaramillo Facility:[facility] Start: 11-13-2023 Admission to [facility] Leonard Mckeon MD, PhD Work Phone: General Surgery Comment on above: Zack Snow Start: 11-13-2023 End: 11-13-2023 ambulatory Leonard Mckeon MD, PhD Work Phone: General Surgery Start: 11-08-2023 End: 11-08-2023 [facility] Work Phone: Pre Anesthesia Start: 11-08-2023 End: 11-08-2023 ambulatory JOHN MENDES Facility:[facility] Start: 11-08-2023 End: 11-08-2023 Anesthesia consultation [facility] 3 Work Phone: Pre Anesthesia Comment on above: Pre-op evaluation (P rimary Dx); Primary hypertension; Pulmonary sarcoidosis (HCC); Uncomplicated asthma, unspecified asthma severity, unspecified whether persistent; Gastroparesis; Gastroesophageal reflux disease, unspecified whether esophagitis present; Hypothyroidism, unspecified type; Microcytic anemia; On home O2 Start: 11-08-2023 Encounter for other preprocedural examination JOHN MENDES [facility] Start: 11-08-2023 End: 11-08-2023 Preprocedural examination done [facility] 3 Work Phone: [facility] Work Phone: Start: 11-08-2023 Patient encounter procedure Mark Mohr LMT Work Phone: Hematology/Oncology Comment on above: Muscle soreness (Regina cinthya Dx) Start: 11-08-2023 End: 11-08-2023 ambulatory JOHN MENDES SR Facility:[facility] Start: 11-02-2023 Admission to [facility] Azalia Lam RN General Surgery Comment on above: Pre Op Education (G- POEM(Tentative for 11/13/2023) 11/13/2023 (POP/G-SKYLER M) Start: 11-02-2023 ambulatory Azalia mann RN General Surgery Start: 11-02-2023 Preprocedural examination done Azalia Lam RN [facility] Start: 11-01-2023 Admission to [facility] Leonard Mckeon MD, PhD Work Phone: General Surgery Comment on above: Sobea Peto Start: 11-01-2023 End: 11-01-2023 ambulatory Leonard Mckeon MD, PhD Work Phone: General Surgery Comment on above: Sobra peto Sobrra peto Start: 11-01-2023 Patient encounter procedure Mark Mohr LMT Work Phone: Hematology/Oncology Comment on above: Muscle soreness (Regina cinthya Dx) Start: 11-01-[address] Fin[address] Work Phone: Nutrition Therapy Comment on above: Tube Feeding Clogged Start: 11-01-2023 End: 11-01-2023 Emergency department patient visit JOHN MENDES SR Facility:[facility] Start: 10-31-2023 Telephone encounter John Mendes DO Work Phone: [facility] [place] Comment on above: Appointment Start: 10-30-2023 End: 10-30-2023 ambulatory JOHN MENDES SR Facility:[facility] Start: 10-30-2023 End: 10-30-2023 Subsequent hospital visit by physician [facility] Comment on above: Nausea [R11.0] Start: 10-29-2023 ambulatory Sara Horan MD Work Phone: Gastroenterology Comment on above: Sobra Peto Start: 10-27-2023 End: 10-27-2023 Patient encounter procedure Ganesh Richardson PA-C Work Phone: General Surgery Comment on above: Nausea (Primary Dx) Start: 10-27-2023 End: 10-27-2023 ambulatory GANESH NOLANNIDHI Facility:[facility] Start: 10-27-2023 End: 10-27-2023 Subsequent hospital visit by physician [facility] Comment on above: Nausea [R11.0] Start: 10-26-2023 Admission to [facility] Provider General Surgery Comment on above: issed appointment Start: 10-26-2023 E-mail encounter howard ramirez caregiver [facility] Provider General Surgery Start: 10-26-2023 Telephone encounter Azalia Lam RN General Surgery Comment on above: Follow Up (Check Pat ient Condition/Patient Education. ) Start: 10-26-2023 End: 10-26-2023 Patient encounter procedure Natalia Torres MD Work Phone: Hematology/Oncology Start: 10-26-2023 End: 10-26-2023 Subsequent hospital visit by physician Ct 2 Main Qb (I-Stat) Radiology Comment on above: Papillary thyroid ca rcinoma (HCC) [C73] Start: 10-26-2023 End: 10-26-2023 ambulatory Natalia Torres MD Work Phone: Hematology/Oncology Comment on above: Papillary thyroid ca rcinoma (HCC) (Primary Dx); Postablative hypothyroidism; Secondary malignancy of right lung (HCC) Start: 10-19-2023 End: 10-19-2023 ambulatory April Marquez MD Work Phone: Gastroenterology Comment on above: Sobra peto Start: 10-19-2023 End: 10-19-2023 Office outpatient new 60 minutes Leonard Mckeon MD, PhD Work Phone: General Surgery Comment on above: Gastroparesis (Prima ry Dx) Start: 10-19-2023 End: 10-19-2023 Patient encounter procedure Hanna Bell MD Work Phone: Endocrinology Comment on above: Papillary thyroid ca rcinoma (HCC) (Primary Dx) Start: 10-18-2023 End: 10-18-2023 ambulatory MEL PALACIO Facility:[facility] Start: 10-18-2023 End: 10-18-2023 Patient encounter procedure Smitha Gramajo APRN.CNP Work Phone: Pulmonary Medicine Comment on above: Chronic pulmonary as piration, sequela (Primary Dx); Moderate persistent asthma, unspecified whether complicated; Hospital discharge follow-up; Pulmonary nodules; Chronic pulmonary aspiration, subsequent encounter Start: 10-13-2023 ambulatory Sara Horan MD Work Phone: Gastroenterology Comment on above: Sobra peto need pres cription Start: 10-12-2023 End: 10-12-2023 ambulatory JOHN [employer] Facility:[facility] Start: 10-12-2023 End: 10-12-2023 Patient encounter procedure Joelle Ren MD Work Phone: Allergy Comment on above: Chronic pharyngitis (Primary Dx); Allergic rhinitis, unspecified seasonality, unspecified trigger; Adverse food reaction, initial encounter; Allergic conjunctivitis, bilateral; Unilateral partial vocal cord paralysis Start: 10-11-2023 ambulatory JOHN 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] Start: 10-10-2023 Telephone encounter April mcneill MD Work Phone: Gastroenterology Comment on above: orders for EN and agrawal pplies Start: 10-09-2023 End: 10-09-2023 ambulatory JOHN [employer] Facility:[facility] Start: 10-07-2023 Telephone encounter Prateek Londono RN [facility] Radiology Procedure Comment on above: Appointment Start: 10-05-2023 End: 10-05-[address] Work Phone: Gastroenterology Start: 10-05-2023 End: 10-05-2023 Patient encounter procedure April Marquez MD Work Phone: Gastroenterology Comment on above: On enteral nutrition (Primary Dx); Nasojejunal tube present; Malnutrition of moderate degree (HCC); Pharyngoesophageal dysphagia New Patient (New pat ient consult); Nutrition Assessment Malnutrition of mode rate degree (HCC) (Primary Dx); Dysphagia, oropharyngeal phase; Gastroparesis Start: 10-02-2023 End: 10-02-2023 ambulatory [facility] Facility:[facility] Start: 09-28-2023 End: 09-28-2023 ambulatory [facility] Facility:[facility] [place] Start: 09-25-2023 ambulatory Hanna Bell MD Work Phone: Endocrinology Comment on above: Thyroid hormone dosi ng Start: 09-25-2023 E-mail encounter fro m caregiver Hanna Bell MD Work Phone: Endocrinology Start: 09-20-2023 End: 09-20-2023 ambulatory [facility] Facility:[facility] Start: 09-19-2023 End: 09-19-2023 ambulatory [facility] SR Facility:[facility] Start: 09-18-2023 End: 09-18-2023 ambulatory [facility] Facility:[facility] [place] Start: 09-16-2023 End: 09-20-2023 Evaluation and management of inpatient [facility] Facility:[facility] Start: 09-11-2023 End: 09-16-2023 Evaluation and management of inpatient [facility] Facility:[facility] Start: 09-07-2023 End: 09-07-[address] [facility] Facility:[facility] Start: 09-07-2023 End: 09-07-2023 Patient encounter procedure Sara Horan MD Work Phone: Gastroenterology Comment on above: Severe protein-calor ie malnutrition (HCC) (Primary Dx); Gastroparesis Start: 08-31-2023 End: 08-31-2023 Evaluation and management of inpatient CAROL KASSAY Facility:[facility] Start: 08-27-2023 End: 09-02-2023 Evaluation and management of inpatient JEROMY C BELAGAVI Facility:[facility] Start: 08-27-2023 E-mail encounter fro m caregiver Natalia Torres MD Work Phone: Hematology/Oncology Start: 08-27-2023 Nutrition therapy Natalia rico MD Work Phone: Hematology/Oncology Comment on above: nutrition recap Start: 08-22-2023 End: 08-27-2023 Evaluation and management of inpatient Milton Mancini MD Facility:[facility] Start: 08-21-2023 End: 08-21-2023 Emergency department patient visit Milton Mancini MD Facility:[facility] Start: 08-15-2023 ambulatory DO JOHN MENDES Faci lity:[facility] Start: 08-14-2023 ambulatory Mc Gutierrez MD Work Phone: Otolaryngology Comment on above: Sobra peto Start: 08-08-2023 End: 08-08-2023 ambulatory MILTON MANCINI Facility:[facility] Start: 08-03-2023 ambulatory Mc Gutierrez MD Work Phone: Otolaryngology Comment on above: Sobra peto Start: 08-02-2023 End: 08-02-2023 [facility] 4 Work Phone: Pre Anesthesia Comment on above: Preop examination (P rimary Dx); Vocal cord paralysis; Primary hypertension; Uncomplicated asthma, unspecified asthma severity, unspecified whether persistent; Gastroesophageal reflux disease, unspecified whether esophagitis present; Hypothyroidism, unspecified type; Adjustment disorder with anxiety Start: 08-02-2023 End: 08-02-2023 Preprocedural examination done [facility] 4 Work Phone: [facility] Work Phone: Start: 07-20-2023 End: 07-20-2023 ambulatory MEL PALACIO Pulmonary Medicine Comment on above: Spirometry Start: 07-20-2023 End: 07-20-2023 Patient encounter procedure Pulm Lab [facility] 2 Work Phone: [facility] Comment on above: Moderate persistent asthma, unspecified whether complicated (Primary Dx); Sarcoidosis of lung (HCC); Allergic rhinitis, unspecified seasonality, unspecified trigger; Sinus disease; History of thyroid cancer; Aspiration into airway, subsequent encounter Start: 07-17-2023 ambulatory DO JOHN MENDES Faci lity:[facility] Start: 06-29-2023 End: 07-01-2023 Evaluation and management of inpatient YOLANDA HANNA [facility] Start: 06-29-2023 End: 06-29-2023 ambulatory JOSETTE LEAURI Facility:[facility] Start: 06-29-2023 Encounter for other preprocedural examination JOHN MENDES SR [facility] Start: 06-21-2023 ambulatory Milton Mancini MD Fac ility:[facility] Start: 06-20-2023 End: 06-20-2023 ambulatory MILTON MANCINI Facility:[facility] Start: 06-16-2023 End: 06-16-2023 ambulatory MILTON MANCINI Facility:[facility] Start: 06-16-2023 End: 06-16-2023 ambulatory MILTON MANCINI Facility:[facility] Start: 06-13-2023 End: 06-13-2023 ambulatory MILTON MANCINI [facility] [facility] Start: 06-05-2023 End: 06-05-2023 ambulatory Milton Mancini MD Facility:[facility] Start: 06-01-2023 End: 06-01-2023 ambulatory PASTOR COLINDRES Facility:[facility] Start: 05-30-2023 Telephone encounter Sharri Ly DO Work Phone: Gastroenterology Start: 05-29-2023 End: 05-30-2023 ambulatory Zeferino Alcala Facility:[facility] Start: 05-28-2023 End: 05-28-2023 Emergency department patient visit Milton Mancini MD Facility:[facility] Start: 05-24-2023 Telephone encounter Sharri Ly DO Work Phone: Gastroenterology Comment on above: Results Start: 05-18-2023 ambulatory SHARRI LY Facility:[facility] Start: 03-28-2023 End: 03-28-2023 ambulatory Milton Mancini MD Facility:[facility] [place] Start: 03-23-2023 End: 03-23-2023 ambulatory MILTON MANCINI Facility:[facility] Start: 03-22-2023 End: 03-22-2023 ambulatory MILTON MANCINI Facility:[facility] Start: 03-22-2023 End: 03-22-2023 Patient encounter procedure Sharri Conteh DO Work Phone: Gastroenterology Comment on above: Nausea and vomiting, unspecified vomiting type (Primary Dx); Generalized abdominal pain; Diarrhea, unspecified type; Weight loss Start: 03-01-2023 End: 03-01-2023 ambulatory MILTON MANCINI Facility:[facility] Start: 03-01-2023 End: 03-01-2023 ambulatory NATALIA TORRES Facility:[facility] Start: 02-24-2023 End: 02-24-2023 Emergency department patient visit Milton Mancini MD Facility:[facility] Start: 02-23-2023 End: 02-23-2023 ambulatory Milton Mancini MD Facility:[facility] [place] Start: 02-22-2023 End: 02-22-2023 Emergency department patient visit Milton Mancini MD Facility:[facility] Start: 02-21-2023 End: 02-21-2023 ambulatory John [place] Facility:[facility] Start: 02-21-2023 End: 02-21-2023 ambulatory DO John House Work Phone: [facility] Work Phone: Start: 02-21-2023 End: 02-21-2023 Patient encounter procedure DO John House Work Phone: [facility] [place] Work Phone: Start: 02-20-2023 End: 02-21-2023 Emergency department patient visit Chinedu Mena Jr Facility:[facility] Start: 02-20-2023 End: 02-21-2023 Emergency department patient visit DO John House Work Phone: [facility] Work Phone: Start: 02-15-2023 End: 02-15-2023 ambulatory MEL PALACIO Facility:[facility] Start: 02-15-2023 End: 02-15-2023 Patient encounter procedure Smitha Gramajo APRN.MACHINE MAINTENANCE SUPERVISOR Work Phone: Pulmonary Medicine Comment on above: Moderate persistent asthma, unspecified whether complicated (Primary Dx); Allergic rhinitis, unspecified seasonality, unspecified trigger; Pulmonary sarcoidosis (HCC); Weight loss; Dyspnea and respiratory abnormalities Start: 02-13-2023 End: 02-13-2023 ambulatory Milton Mancini MD Facility:[facility] Start: 02-10-2023 End: 02-10-2023 ambulatory Milton Mancini MD Facility:[facility] Start: 02-02-2023 End: 02-02-2023 ambulatory JOELLE REN Facility:[facility] Start: 02-02-2023 End: 02-02-2023 Patient encounter procedure Joelle Ren MD Work Phone: Allergy Comment on above: Allergic rhinitis, u nspecified seasonality, unspecified trigger (Primary Dx); Chronic pharyngitis; Unilateral partial vocal cord paralysis Start: 11-13-2022 Refill Tamara beaulieu FIREWORKS INSPECTOR.MACHINE MAINTENANCE SUPERVISOR Work Phone: Hematology/Oncology Comment on above: Refill Request Start: 07-22-2022 ambulatory Joelle castaneda MD Work Phone: Allergy Comment on above: Zack snow Start: 07-21-2022 End: 07-21-2022 Patient encounter procedure Joelle Ren MD Work Phone: Allergy Comment on above: Chronic rhinitis (Pr imary Dx); Allergic rhinitis, unspecified seasonality, unspecified trigger; Sinus disease; Adverse food reaction, initial encounter; Allergic conjunctivitis, bilateral Start: 07-15-2022 Refill Mel Palacio MD Work Phone: Pulmonary Medicine Start: 06-07-2022 End: 06-07-2022 Subsequent hospital visit by physician Ct 2 Main Qb (I-Stat) Radiology Comment on above: Papillary thyroid ca rcinoma (HCC) [C73] Start: 03-28-2022 End: 03-28-2022 Patient encounter procedure Huseyin Samano MD Work Phone: Otolaryngology Comment on above: Papillary thyroid ca rcinoma (HCC) (Primary Dx); Vocal cord paralysis Start: 02-23-2022 End: 02-23-2022 ambulatory Pulm Rej Work Phone: Pulmonary Medicine Comment on above: Spirometry Start: 02-23-2022 End: 02-23-2022 Patient encounter procedure Pulm Lab [facility] Rej Work Phone: [facility] Comment on above: Pulmonary sarcoidosi s (HCC) (Primary Dx); Obstructive lung disease (generalized) (HCC); History of thyroid cancer; Weight loss Start: 12-10-2021 Telephone encounter Mel escobar MD Work Phone: Pulmonary Medicine Comment on above: Medication Request Start: 11-24-2021 End: 11-24-2021 Patient encounter procedure Mel Palacio MD Work Phone: Pulmonary Medicine Comment on above: Dyspnea on exertion (Primary Dx); Sarcoidosis; Pulmonary sarcoidosis (HCC) Start: 09-09-2021 Refill Tamara beaulieu APRN.MACHINE MAINTENANCE SUPERVISOR Work Phone: Hematology/Oncology Comment on above: Refill Request Start: 01-12-2017 End: 01-13-2017 Ambulatory CATHLEEN SALAS [facility] Start: 12-05-2016 End: 12-06-2016 Ambulatory CATHLEEN SALAS [facility] Procedures Date Procedure Procedure Detail Performing Clinician Start: 12-12-2023 End: 12-12-2023 Ecg routine ecg w/least 12 lds i&r only Sara Horan MD Work Phone: Start: 12-12-2023 Esophagoscp rig alicea soral hypopharynx crv esoph Sara Horan MD Work Phone: Start: 11-22-2023 Radiologic exam swal low function contrast study Smitha Gramajo APRN.MACHINE MAINTENANCE SUPERVISOR Work Phone: Start: 11-01-2023 Electrocardiogram CHARL DONAL MENDES SR Start: 10-30-2023 Gastric emptying red ging study Ganesh Richardson PA-C Work Phone: Start: 10-26-2023 Ct soft tissue neck w/contrast material Natalia Torres MD Work Phone: Start: 09-18-2023 Antibody screen JOHN MENDES SR Comment on above: Order Comment: Speci men Type: BLOOD SPECIMENOrdering Facility: [facility] Address: [address] [place] [address] Performed By: #### T SCR ####CC MAIN BLOOD BANKCLIA [id number] [facility] [id number] [place] [address] [place] Start: 08-02-2023 Ecg routine ecg w/le ast 12 lds i&r only [facility] Provider Start: 07-20-2023 Brncdilat rspse spmt ry pre&post-brncdilat admn Smitha Gramajo APRN.MACHINE MAINTENANCE SUPERVISOR Work Phone: Start: 02-20-2023 Computed tomography of abdomen and pelvis with contrast DO John Mendes Work Phone: Start: 07-21-2022 ALLERGEN SKIN TEST-FOOD Joelle eRn MD Work Phone: Start: 07-21-2022 ALLERGEN SKIN TEST-I NHALENT 40 Joelle Ren MD Work Phone: Start: 06-07-2022 Ct soft tissue neck w/contrast material Natalia Torres MD Work Phone: Start: 06-07-2022 Ct thorax w/contrast material Natalia Torres MD Work Phone: Start: 06-07-2022 Creatinine [Mass/vol ume] in Serum or Plasma [facility] Provider Start: 02-23-2022 Nitric oxide gas determination Mel Palacio MD Work Phone: Start: 02-23-2022 Co diffusing capacity D arabella Palacio MD Work Phone: Start: 09-03-2020 Adult depression scr eening yuan Tamez APRN.PATEL Work Phone: Plan of Treatment Date Care Activity Detail Author Start: 12-04-2026 Diabetes Screening Diabetes Screening [facility] Start: 11-07-2026 Diabetes Screening Diabetes Screening [facility] Start: 10-31-2026 Diabetes Screening Diabetes Screening [facility] Start: 10-08-2026 Diabetes Screening Diabetes Screening [facility] Start: 09-16-2026 Diabetes Screening Diabetes Screening [facility] Start: 08-27-2026 Diabetes Screening Diabetes Screening [facility] Start: 07-01-2026 Diabetes Screening Diabetes Screening [facility] Start: 06-30-2026 Diabetes Screening Diabetes Screening [facility] Start: 03-01-2026 Diabetes Screening Diabetes Screening [facility] Start: 06-07-2025 DIABETES SCREEN DIABETES SCREEN [facility] Start: 06-07-2025 Diabetes Screening Diabetes Screening [facility] Start: 12-04-2024 BP Controlled (<130/80) BP Controlled (<130/80) [facility] Start: 11-18-2024 DIABETES SCREEN DIABETES SCREEN [facility] Start: 11-07-2024 BP Controlled (<130/80) BP Controlled (<130/80) [facility] Start: 10-25-2024 BP Controlled (<130/80) BP Controlled (<130/80) [facility] Start: 09-06-2024 BP Controlled (<130/80) BP Controlled (<130/80) [facility] Start: 08-01-2024 End: 08-01-2024 Patient encounter procedure 08/01/2024 2:00 PM EST Office Visit Allergy [address] [place] [address] [place] [address] [place] [address] 10 month follow up Allergy Comment on above: 10 month follow up Start: 05-15-2024 End: 05-15-2024 Patient encounter procedure 05/15/2024 10:00 AM EST Office Visit Pulmonary Medicine [address] [place], [place] [id number] [place] [address] [place], [place] [id number] Follow up with Dr. Palacio in 3 months. Pulmonary Medicine Comment on above: Follow up with Dr. Palacio in 3 months. Start: 04-27-2024 End: 11-24-2024 CT Chest W contrast IV CT CHEST W IVCON Radiology Routine Papillary thyroid carcinoma (HCC) Expected: 04/27/2024, Expires: 11/24/2024 [facility] Comment on above: Expected: 04/27/2024, Expires: Start: 04-27-2024 End: 11-24-2024 CT Neck W contrast IV CT NECK SOFT TISSUE W IVCON Radiology Routine Papillary thyroid carcinoma (HCC) Expected: 04/27/2024, Expires: 11/24/2024 [facility] Work Phone: Comment on above: Expected: 04/27/2024, Expires: Start: 04-23-2024 End: 07-23-2024 CBC W Auto Differential panel - Blood COMPLETE BLOOD COUNT AND DIFFERENTIAL Lab Routine Papillary thyroid carcinoma (HCC) Expected: 04/23/2024 (Approximate), Expires: 07/23/2024 [facility] Comment on above: Expected: 04/23/2024 (Approximate), Expi res: 07/23/2024 Start: 04-23-2024 End: 07-23-2024 Comprehensive metabolic 2000 panel - Serum or Plasma COMPREHENSIVE METABOLIC PANEL Lab Routine Papillary thyroid carcinoma (HCC) Expected: 04/23/2024 (Approximate), Expires: 07/23/2024 [facility] Comment on above: Expected: 04/23/2024 (Approximate), Expi res: 07/23/2024 Start: 04-23-2024 End: 07-23-2024 Thyrotropin [Units/volume] in Serum or Plasma THYROID STIMULATING HORMONE Lab Routine Papillary thyroid carcinoma (HCC) Postablative hypothyroidism Expected: 04/23/2024 (Approximate), Expires: 07/23/2024 [facility] Comment on above: Expected: 04/23/2024 (Approximate), Expi res: 07/23/2024 Start: 03-04-2024 DIABETES SCREEN DIABETES SCREEN [facility] Start: 02-15-2024 End: 02-15-2024 Patient encounter procedure General Surgery Comment on above: 3 MONTH FOLLOW UP Start: 01-28-2024 Influenza vaccination Influenza Vaccine (#1) [facility] Start: 01-17-2024 End: 01-17-2024 Patient encounter procedure 01/17/2024 10:45 AM EDT Office Visit Pulmonary Medicine [address] [place] [address] Smitha Gramajo APRN.MACHINE MAINTENANCE SUPERVISOR [address] [place] [address] Palacio in 3 months. Pulmonary Medicine Comment on above: Follow up with Dr. Palacio in 3 months. Start: 01-10-2024 End: 01-10-2024 Patient encounter procedure 01/10/2024 3:00 PM EDT Office Visit Gastroenterology [address] [address] Sara Horan MD [address] [place] [address] 3 week f/u Gastroenterology Comment on above: 3 week f/u Start: 01-03-2024 End: 01-03-2024 ambulatory 01/03/2024 1:15 PM EDT OT/PT/Speech Visit [facility] Speech Therapy [address] [place] [address] Nidhi Castro, [facility] MACH[facility] BUFFER [address] [place] [address] Chronic pulmonary aspiration, sequela [T17.908S] [facility] Speech Therapy Comment on above: Chronic pulmonary aspiration, sequela [T 17.908S] Start: 01-02-2024 End: 01-02-2024 Patient encounter procedure 01/02/2024 1:00 PM EDT Office Visit Endocrinology [address] [place] [address] Roger Ramírez MD [address] [facility] [address] [place] [address] papilary thyroid carcinoma Endocrinology Comment on above: papilary thyroid carcinoma Start: 12-21-2023 End: 12-21-2023 Patient encounter procedure 12/21/2023 11:30 AM EDT Office Visit Otolaryngology [address] [place] [address], [place] [address] Mc Gutierrez MD [address] [place] [address] Post op Otolaryngology Comment on above: Post op Start: 12-20-2023 End: 12-20-2023 ambulatory 12/20/2023 2:00 PM EDT Visit (SP) Office Hematology/Oncology [address] [place] [address] Mark Mohr T [address] [place] [address] Massage pt will be in lobby Hematology/Oncology Comment on above: Massage pt will be in lobby Start: 12-14-2023 End: 12-14-2023 ambulatory 12/14/2023 11:00 AM EDT Visit (SP) Office Hematology/Oncology [address] [place] [address] Mark Mohr T [address] [place] [address] massage pt will be in lobby Hematology/Oncology Comment on above: massage pt will be in lobby Start: 12-12-2023 End: 12-12-2023 Patient encounter procedure 12/12/2023 2:00 PM EDT Appointment Gastroenterology [address] [place] [address], [place] [address] Sara Horan MD [address] [place] [address] Pharyngeal dysphagia [R13.13] Gastroenterology Comment on above: Pharyngeal dysphagia [R13.13] Start: 12-07-2023 End: 12-07-2023 ambulatory 12/07/2023 11:00 AM EDT Visit (SP) Office Hematology/Oncology [address] [place] [address] Mark Mohr LMT [address] [place] [address] massage pt will be in lobby Hematology/Oncology Comment on above: massage pt will be in lobby Start: 12-06-2023 End: 12-06-2023 ambulatory 12/06/2023 11:30 AM EDT Visit (SP) Office Hematology/Oncology [address] [place] [address] Mark Mohr LMT [address] [place] [address] massage pt will be in lobby Hematology/Oncology Comment on above: massage pt will be in lobby Start: 12-05-2023 End: 12-05-2023 Patient encounter procedure 12/05/2023 3:30 PM EDT Office Visit Gastroenterology [address] [phone] Sara Horan MD [address] [place] [id number] 3 month follow up Gastroenterology Comment on above: 3 month follow up Start: 11-29-2023 End: 11-29-2023 ambulatory 11/29/2023 1:00 PM EDT Visit (SP) Office Hematology/Oncology [address] [place] [address] Mark Mohr LMT [address] [place] [address] massage pt will be in lobby Hematology/Oncology Comment on above: massage pt will be in lobby Start: 11-23-2023 End: 11-23-2023 Admission to same day surgery center 11/23/2023 8:00 AM EDT [facility] General Surgery [address] [place] [address] Leonard Mckeon MD, PhD [address] [phone] post op 7-10 day / pop 11/13/2023 General Surgery Comment on above: post op 7-10 day / pop 11/13/2023 Start: 11-22-2023 End: 11-22-2023 ambulatory Hematology/Oncology Comment on above: massage Start: 11-22-2023 End: 11-22-2023 Patient encounter procedure Otolaryngology Comment on above: XR MODIFIED BARIUM SWALLOW W SPEECH THER APY post op 7-10 day / p op 11/13/2023 Start: 11-14-2023 End: 11-14-2023 Patient encounter procedure 11/14/2023 8:00 AM EDT Office Visit Otolaryngology [address] [id number] XR MODIFIED BARIUM SWALLOW W SPEECH THERAPY Otolaryngology Comment on above: XR MODIFIED BARIUM SWALLOW W SPEECH THER APY Start: 11-13-2023 End: 11-13-2023 ambulatory 11/13/2023 10:00 AM EDT [facility] Gastroenterology [address] [phone] Carrie Pennington, RD [address] [place] [address] f/u/ TF and intakes Gastroenterology Comment on above: f/u/ TF and intakes Start: 11-13-2023 End: 11-13-2023 Admission to same day surgery center 11/13/2023 7:30 AM EDT - 11/13/2023 9:11 AM EDT Surgery Admitting [address] [place] [address] Leonard Mckeon MD, PhD [address] [place] [address] ENDOSCOPIC PER-ORAL PYLOROMYOTOMY Admitting Comment on above: ENDOSCOPIC PER-ORAL PYLOROMYOTOMY Start: 11-13-2023 Subsequent hospital visit by physician 11/13/2023 7:30 AM EDT Hospital Encounter Admitting [facility] [place] [address] Leonard Mckeon MD, PhD [address] [place] [address] Gastroparesis [K31.84], Gastroesophageal reflux disease, unspecified whether esophagitis present [K21.9], Severe protein-calorie malnutrition (HCC) [E43], Pre-operative examination [Z01.818] Admitting Comment on above: Gastroparesis [K31.84], Gastroesophageal reflux disease, unspecified whether esophagitis present [K21.9], Severe protein-calorie malnutrition (HCC) [E43], Pre-operative examination [Z01.818] Start: 11-13-2023 End: 11-13-2023 Unlisted procedure stomach ENDOSCOPIC PER-ORAL PYLOROMYOTOMY Gastroparesis Gastroesophageal reflux disease, unspecified whether esophagitis present Severe protein-calorie malnutrition (HCC) Pre-operative examination 11/13/2023 7:30 AM EDT [facility] Start: 11-08-2023 End: 11-08-2023 Anesthesia consultation 11/08/2023 2:[address] [facility] Pre Anesthesia [address] [place] [address] preop/pop 11/13/2023 Pre Anesthesia Comment on above: preop/pop 11/13/2023 Start: 11-08-2023 End: 11-08-2023 ambulatory 11/08/2023 11:30 AM EDT Visit (SP) Office Hematology/Oncology [address] [place] [address] [place] [address] Mark Mohr, LMT [address] [place] [address] [place] [address] massage Hematology/Oncology Comment on above: massage Start: 11-02-2023 End: 11-01-2024 CBC W Auto Differential panel - Blood COMPLETE BLOOD COUNT AND DIFFERENTIAL Lab Routine Gastroparesis Gastroesophageal reflux disease, unspecified whether esophagitis present Severe protein-calorie malnutrition (HCC) Pre-operative examination Expected: 11/02/2023, Expires: 11/01/2024 [facility] Comment on above: Expected: 11/02/2023, Expires: Start: 11-02-2023 End: 11-01-2024 Comprehensive metabolic 2000 panel - Serum or Plasma COMPREHENSIVE METABOLIC PANEL Lab Routine Gastroparesis Gastroesophageal reflux disease, unspecified whether esophagitis present Severe protein-calorie malnutrition (HCC) Pre-operative examination Expected: 11/02/2023, Expires: 11/01/2024 [facility] Work Phone: Comment on above: Expected: 11/02/2023, Expires: Start: 11-01-2023 End: 11-01-2023 ambulatory 11/01/2023 11:00 AM EDT Visit (SP) Office Hematology/Oncology [address] [place] [address] Mark Mohr, T [address] [place] [address] new massage Hematology/Oncology Comment on above: new massage Start: 10-30-2023 End: 10-30-2023 Patient encounter procedure 10/30/2023 7:30 AM EDT Appointment Molecular Imaging [address] [place] [address] NM GASTRIC EMPTYING LIQUID Molecular Imaging Comment on above: NM GASTRIC EMPTYING LIQUID Start: 10-27-2023 End: 10-27-2023 Patient encounter procedure 10/27/2023 8:00 AM EDT Appointment Molecular Imaging [address] [place] [address] NM GASTRIC EMPTYING SOLID Molecular Imaging Comment on above: NM GASTRIC EMPTYING SOLID Start: 10-26-2023 End: 10-26-2023 Follow-up encounter 10/26/2023 12:00 PM EDT Visit (SP) Office Hematology/Oncology [address] [place] [address] Natalia Torres MD [address] [place] [address] FOLLOW UP Hematology/Oncology Comment on above: FOLLOW UP Start: 10-26-2023 End: 10-26-2023 Patient encounter procedure 10/26/2023 10:00 AM EDT Appointment Radiology [address] [place], [place] [phone] CT NECK SOFT TISSUE/ CT CHEST W IVCON Radiology Comment on above: CT NECK SOFT TISSUE/ CT CHEST W IVCON Start: 10-26-2023 End: 10-26-2023 ambulatory Gastroenterology Comment on above: f/u/ TF and intakes LAB Start: 10-24-2023 End: 10-24-2023 ambulatory 10/24/2023 10:15 AM EDT OT/PT/Speech Visit [facility] Speech Therapy [address] [place] [address] Magalys Ackerman [facility] [address], [place] [address] Chronic pulmonary aspiration, sequela [T17.908S] [facility] Speech Therapy Comment on above: Chronic pulmonary aspiration, sequela [T 17.908S] Start: 10-23-2023 Urine microalbumin profile DTaP,Tdap,Td Vaccine (2 - Td or Tdap) [facility] Start: 10-19-2023 End: 01-18-2024 THYROGLOBULIN ANTIBODY THYROGLOBULIN ANTIBODY Lab Routine Papillary thyroid carcinoma (HCC) Expected: 10/19/2023, Expires: 01/18/2024 [facility] Comment on above: Expected: 10/19/2023, Expires: Start: 10-19-2023 End: 01-18-2024 THYROGLOBULIN BY LC-MS/MS, SERUM OR PLASMA, FOR THYROGLOBULIN ANTIBODY INTERFERENCE THYROGLOBULIN BY LC-MS/MS, SERUM OR PLASMA, FOR THYROGLOBULIN ANTIBODY INTERFERENCE Lab Routine Papillary thyroid carcinoma (HCC) Expected: 10/19/2023, Expires: 01/18/2024 [facility] Comment on above: Expected: 10/19/2023, Expires: Start: 10-19-2023 End: 01-18-2024 Thyrotropin [Units/volume] in Serum or Plasma THYROID STIMULATING HORMONE Lab Routine Papillary thyroid carcinoma (HCC) Expected: 10/19/2023, Expires: 01/18/2024 [facility] Work Phone: Comment on above: Expected: 10/19/2023, Expires: Start: 10-19-2023 End: 10-19-2023 Patient encounter procedure General Surgery Comment on above: New Consult. Gastroparesis; Evaluation f or J-Tube placement and G-Poem. Referred by Dr. Marquez Start: 10-19-2023 End: 10-19-2023 Patient encounter procedure 10/19/2023 11:20 AM EDT Office Visit [facility] [address] [facility] [place] [address] Hanna Bell MD [address] [facility] [address] [place], [place] [phone] 3-6 month follow up Endocrinology Comment on above: 3-6 month follow up Start: 10-18-2023 End: 10-18-2023 Patient encounter procedure 10/18/2023 9:45 AM EDT Office Visit Pulmonary Medicine [address] [place] [address] Smitha Gramajo APRN.MACHINE MAINTENANCE SUPERVISOR [address] [place] [address] Return in about 3 months (around 10/18/2023). Pulmonary Medicine Comment on above: Return in about 3 months (around 10/18/19 24). 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] Start: 10-05-2023 End: 10-05-2023 Patient encounter procedure Gastroenterology Comment on above: New Patient Consult- EN- Dr Marquez New Patient Consult- EN Start: 10-05-2023 End: 01-04-2024 25-hydroxyvitamin D3 [Mass/volume] in Serum or Plasma VITAMIN D 25 HYDROXY Lab Routine On enteral nutrition Nasojejunal tube present Malnutrition of moderate degree (HCC) Pharyngoesophageal dysphagia Expected: 10/05/2023 (Approximate), Expires: 01/04/2024 [facility] Comment on above: Expected: 10/05/2023 (Approximate), Expi res: 01/04/2024 Start: 10-05-2023 End: 01-04-2024 Alpha tocopherol [Mass/volume] in Serum or Plasma VITAMIN E/TOCOPHEROL Lab Routine On enteral nutrition Nasojejunal tube present Malnutrition of moderate degree (HCC) Pharyngoesophageal dysphagia Expected: 10/05/2023 (Approximate), Expires: 01/04/2024 [facility] Comment on above: Expected: 10/05/2023 (Approximate), Expi res: 01/04/2024 Start: 10-05-2023 End: 01-04-2024 C reactive protein [Mass/volume] in Serum or Plasma C-REACTIVE PROTEIN Lab Routine On enteral nutrition Nasojejunal tube present Malnutrition of moderate degree (HCC) Pharyngoesophageal dysphagia Expected: 10/05/2023 (Approximate), Expires: 01/04/2024 [facility] [facility] Comment on above: Expected: 10/05/2023 (Approximate), Expi res: 01/04/2024 Start: 10-05-2023 End: 01-04-2024 CBC W Auto Differential panel - Blood COMPLETE BLOOD COUNT AND DIFFERENTIAL Lab Routine On enteral nutrition Nasojejunal tube present Malnutrition of moderate degree (HCC) Pharyngoesophageal dysphagia Expected: 10/05/2023 (Approximate), Expires: 01/04/2024 [facility] Work Phone: Comment on above: Expected: 10/05/2023 (Approximate), Expi res: 01/04/2024 Start: 10-05-2023 End: 01-04-2024 Cobalamin (Vitamin B12) [Mass/volume] in Serum or Plasma VITAMIN B12 Lab Routine On enteral nutrition Nasojejunal tube present Malnutrition of moderate degree (HCC) Pharyngoesophageal dysphagia Expected: 10/05/2023 (Approximate), Expires: 01/04/2024 [facility] Comment on above: Expected: 10/05/2023 (Approximate), Expi res: 01/04/2024 Start: 10-05-2023 End: 01-04-2024 Comprehensive metabolic 2000 panel - Serum or Plasma COMPREHENSIVE METABOLIC PANEL Lab Routine On enteral nutrition Nasojejunal tube present Malnutrition of moderate degree (HCC) Pharyngoesophageal dysphagia Expected: 10/05/2023 (Approximate), Expires: 01/04/2024 [facility] Comment on above: Expected: 10/05/2023 (Approximate), Expi res: 01/04/2024 Start: 10-05-2023 End: 01-04-2024 COPPER BLOOD COPPER BLOOD Lab Routine On enteral nutrition Nasojejunal tube present Malnutrition of moderate degree (HCC) Pharyngoesophageal dysphagia Expected: 10/05/2023 (Approximate), Expires: 01/04/2024 [facility] Comment on above: Expected: 10/05/2023 (Approximate), Expi res: 01/04/2024 Start: 10-05-2023 End: 01-04-2024 Folate [Mass/volume] in Serum or Plasma FOLATE, SERUM Lab Routine On enteral nutrition Nasojejunal tube present Malnutrition of moderate degree (HCC) Pharyngoesophageal dysphagia Expected: 10/05/2023 (Approximate), Expires: 01/04/2024 [facility] Comment on above: Expected: 10/05/2023 (Approximate), Expi res: 01/04/2024 Start: 10-05-2023 End: 01-04-2024 Iron and Iron binding capacity panel - Serum or Plasma IRON AND TIBC Lab Routine On enteral nutrition Nasojejunal tube present Malnutrition of moderate degree (HCC) Pharyngoesophageal dysphagia Expected: 10/05/2023 (Approximate), Expires: 01/04/2024 [facility] Comment on above: Expected: 10/05/2023 (Approximate), Expi res: 01/04/2024 Start: 10-05-2023 End: 01-04-2024 Magnesium [Mass/volume] in Serum or Plasma MAGNESIUM Lab Routine On enteral nutrition Nasojejunal tube present Malnutrition of moderate degree (HCC) Pharyngoesophageal dysphagia Expected: 10/05/2023 (Approximate), Expires: 01/04/2024 [facility] Comment on above: Expected: 10/05/2023 (Approximate), Expi res: 01/04/2024 Start: 10-05-2023 End: 01-04-2024 Methylmalonate [Moles/volume] in Serum or Plasma METHYLMALONIC ACID Lab Routine On enteral nutrition Nasojejunal tube present Malnutrition of moderate degree (HCC) Pharyngoesophageal dysphagia Expected: 10/05/2023 (Approximate), Expires: 01/04/2024 [facility] Comment on above: Expected: 10/05/2023 (Approximate), Expi res: 01/04/2024 Start: 10-05-2023 End: 01-04-2024 Phosphate [Mass/volume] in Serum or Plasma PHOSPHORUS INORGANIC Lab Routine On enteral nutrition Nasojejunal tube present Malnutrition of moderate degree (HCC) Pharyngoesophageal dysphagia Expected: 10/05/2023 (Approximate), Expires: 01/04/2024 [facility] Comment on above: Expected: 10/05/2023 (Approximate), Expi res: 01/04/2024 Start: 10-05-2023 End: 01-04-2024 Prealbumin [Mass/volume] in Serum or Plasma PREALBUMIN Lab Routine On enteral nutrition Nasojejunal tube present Malnutrition of moderate degree (HCC) Pharyngoesophageal dysphagia Expected: 10/05/2023 (Approximate), Expires: 01/04/2024 [facility] Comment on above: Expected: 10/05/2023 (Approximate), Expi res: 01/04/2024 Start: 10-05-2023 End: 01-04-2024 Pyridoxine [Mass/volume] in Serum or Plasma VITAMIN B6/PYRIDOXIN Lab Routine On enteral nutrition Nasojejunal tube present Malnutrition of moderate degree (HCC) Pharyngoesophageal dysphagia Expected: 10/05/2023 (Approximate), Expires: 01/04/2024 [facility] Comment on above: Expected: 10/05/2023 (Approximate), Expi res: 01/04/2024 Start: 10-05-2023 End: 01-04-2024 Retinol [Mass/volume] in Serum or Plasma VITAMIN A/RETINOL Lab Routine On enteral nutrition Nasojejunal tube present Malnutrition of moderate degree (HCC) Pharyngoesophageal dysphagia Expected: 10/05/2023 (Approximate), Expires: 01/04/2024 [facility] Comment on above: Expected: 10/05/2023 (Approximate), Expi res: 01/04/2024 Start: 10-05-2023 End: 01-04-2024 Zinc [Mass/volume] in Serum or Plasma ZINC BLD Lab Routine On enteral nutrition Nasojejunal tube present Malnutrition of moderate degree (HCC) Pharyngoesophageal dysphagia Expected: 10/05/2023 (Approximate), Expires: 01/04/2024 [facility] Comment on above: Expected: 10/05/2023 (Approximate), Expi res: 01/04/2024 Start: 05-29-2023 Behavioral Health Screening Behavioral Health Screening [facility] Start: 05-29-2023 Depression Assessment Depression Assessment [facility] Start: 03-22-2023 End: 06-21-2023 CDIFF PCR W/RFLX EIA IF POSITIVE CDIFF PCR W/RFLX EIA IF POSITIVE Lab Routine Diarrhea, unspecified type Expected: 03/22/2023, Expires: 06/21/2023 [facility] Work Phone: Comment on above: Expected: 03/22/2023, Expires: Start: 03-22-2023 End: 06-21-2023 ENTERIC BACTERIAL PANEL BY PCR ENTERIC BACTERIAL PANEL BY PCR Lab Routine Diarrhea, unspecified type Expected: 03/22/2023, Expires: 06/21/2023 [facility] Work Phone: Comment on above: Expected: 03/22/2023, Expires: 4 Start: 02-23-2023 BP CONTROLLED (<130/80) BP CONTROLLED (<130/80) [facility] Start: 02-20-2023 Computed tomography of abdomen and pelvis with contrast CT abdomen pelvis w con [facility] Start: 02-20-2023 CT Abdomen and Pelvis W contrast IV [facility] Start: 02-20-2023 Bacteria identified in Urine by Culture [facility] Start: 02-20-2023 Urine culture Urine Culture [facility] Start: 01-27-2023 Covid-19 Vaccine () Covid-19 Vaccine () [facility] Start: 01-27-2023 Influenza vaccination [facility] Start: 05-29-2022 DEPRESSION ASSESSMENT DEPRESSION ASSESSMENT [facility] Start: 2022 RSV Vaccine (1 - 1-dose 60+ series) RSV Vaccine (1 - 1-dose 60+ series) [facility] Start: 01-27-2022 Influenza vaccination [facility] Start: 12-26-2021 COVID-19 VACCINE (4 - Booster for Pfizer series) COVID-19 VACCINE (4 - Booster for Pfizer series) [facility] Start: 10-21-2021 COVID-19 VACCINE (4 - Booster for Pfizer series) COVID-19 VACCINE (4 - Booster for Pfizer series) [facility] Start: 10-21-2021 COVID-19 VACCINE (4 - Pfizer series) COVID-19 VACCINE (4 - Pfizer series) [facility] Start: 09-03-2021 Adult depression screening assessment DEPRESSION SCREENING [facility] Start: 05-29-2021 DEPRESSION ASSESSMENT DEPRESSION ASSESSMENT [facility] Start: 04-13-2021 COVID-19 VACCINE (3 - Booster for Pfizer series) COVID-19 VACCINE (3 - Booster for Pfizer series) [facility] Start: 2012 SHINGRIX VACCINE (1 of 2) SHINGRIX VACCINE (1 of 2) [facility] Start: 2007 COLOGUARD (FIT-DNA) COLOGUARD (FIT-DNA) [facility] Start: 2007 Colonoscopy COLONOSCOPY [facility] Start: 2007 COLORECTAL CANCER SCREENING COLORECTAL CANCER SCREENING [facility] Start: [address] COLONOGRAPHY [facility] Start: 2007 FECAL OCCULT BLOOD FECAL OCCULT BLOOD [facility] Start: 2007 Lipid 1996 panel - Serum or Plasma Lipid Screening [facility] Start: 2007 Lipid panel Lipid Screening [facility] Start: 2007 LIPID SCREEN LIPID SCREEN [facility] Start: 2007 Screening for malignant neoplasm of colon [facility] Start: 2007 SIGMOIDOSCOPY SIGMOIDOSCOPY [facility] Start: 2002 Mammography [facility] Start: 2002 Screening for malignant neoplasm of breast Mammogram Screening [facility] Start: 1992 HPV TESTING HPV TESTING [facility] Start: 1992 Screening for malignant neoplasm of cervix HPV Testing [facility] Start: 1983 PAP TESTING PAP TESTING [facility] Start: 1983 Screening for malignant neoplasm of cervix [facility] Start: 1981 Urine microalbumin profile [facility] Start: 1980 ANNUAL PCP TEAM CHRONIC DISEASE VISIT ANNUAL PCP TEAM CHRONIC DISEASE VISIT [facility] Start: 1980 BP CONTROLLED (<130/80) BP CONTROLLED (<130/80) [facility] Start: 1980 HEPATITIS C SCREENING HEPATITIS C SCREENING [facility] Start: 1980 Hepatitis C screening Hepatitis C Screening [facility] Start: 1980 HIV SCREENING HIV SCREENING [facility] Start: 1980 HIV screening HIV Screening [facility] CT Chest W contrast IV CT CHEST W IVCON Radiology Routine Papillary thyroid carcinoma (HCC) 10/26/2023 10:08 AM EDT [facility] Work Phone: End: 08-18-2024 CT Chest WO contrast CT CHEST WO IVCON Radiology Routine Sarcoidosis of lung (HCC) 1 Occurrences starting 07/20/2023 until 08/18/2024 [facility] Work Phone: Comment on above: 1 Occurrences starting 07/20/2023 until 08/18/2024 CT Chest WO contrast CT CHEST WO IVCON Radiology Routine Sarcoidosis of lung (HCC) 10/11/2023 11:31 AM EDT [facility] Work Phone: ECG COMPLETE ECG COMPLETE ECG 08/02/2023 12:07 PM EST [facility] End: 10-14-2024 ECG COMPLETE ECG COMPLETE ECG Routine Nausea Gastroparesis 1 Occurrences starting 10/15/2023 until 10/14/2024 [facility] Comment on above: 1 Occurrences starting 10/15/2023 until 10/14/2024 End: 12-04-2024 ECG COMPLETE ECG COMPLETE ECG Routine Pharyngeal dysphagia 1 Occurrences starting 12/05/2023 until 12/04/2024 [facility] Work Phone: Comment on above: 1 Occurrences starting 12/05/2023 until 12/04/2024 End: 12-11-2024 ECG COMPLETE ECG COMPLETE ECG Routine Nausea 1 Occurrences starting 12/12/2023 until 12/11/2024 [facility] Comment on above: 1 Occurrences starting 12/12/2023 until 12/11/2024 ECG COMPLETE [facility] End: 12-04-2024 EGD - THERAPEUTIC, EUS, OR TUBE INTERVENTIONS EGD - THERAPEUTIC, EUS, OR TUBE INTERVENTIONS Endoscopy Routine Pharyngeal dysphagia 1 Occurrences starting 12/05/2023 until 12/04/2024 [facility] Comment on above: 1 Occurrences starting 12/05/2023 until 12/04/2024 End: 03-22-2024 EGD DIAGNOSTIC EGD DIAGNOSTIC Endoscopy Routine Nausea and vomiting, unspecified vomiting type Generalized abdominal pain 1 Occurrences starting 03/22/2023 until 03/22/2024 [facility] Work Phone: Comment on above: 1 Occurrences starting 03/22/2023 until 03/22/2024 End: 12-24-2022 LUNG DIFFUSION CAPACITY (DLCO) LUNG DIFFUSION CAPACITY (DLCO) PFT Routine Sarcoidosis Dyspnea on exertion 1 Occurrences starting 11/24/2021 until 12/24/2022 [facility] Work Phone: Comment on above: 1 Occurrences starting 11/24/2021 until 12/24/2022 End: 03-16-2024 LUNG DIFFUSION CAPACITY (DLCO) LUNG DIFFUSION CAPACITY (DLCO) PFT Routine Moderate persistent asthma, unspecified whether complicated Pulmonary sarcoidosis (HCC) 1 Occurrences starting 02/15/2023 until 03/16/2024 [facility] Work Phone: Comment on above: 1 Occurrences starting 02/15/2023 until 03/16/2024 End: 12-24-2022 NITRIC OXIDE, EXHALED NITRIC OXIDE, EXHALED PFT Routine Sarcoidosis Dyspnea on exertion 1 Occurrences starting 11/24/2021 until 12/24/2022 [facility] Work Phone: Comment on above: 1 Occurrences starting 11/24/2021 until 12/24/2022 End: 11-25-2024 NM Stomach Views for gastric emptying liquid phase W radionuclide PO NM GASTRIC EMPTYING LIQUID Radiology Routine Nausea 1 Occurrences starting 10/27/2023 until 11/25/2024 [facility] Work Phone: Comment on above: 1 Occurrences starting 10/27/2023 until 11/25/2024 End: 11-13-2024 NM Stomach Views for gastric emptying solid phase W radionuclide PO NM GASTRIC EMPTYING SOLID Radiology Routine Nausea 1 Occurrences starting 10/15/2023 until 11/13/2024 [facility] Work Phone: Comment on above: 1 Occurrences starting 10/15/2023 until 11/13/2024 NM Stomach Views for gastric emptying solid phase W radionuclide PO NM GASTRIC EMPTYING SOLID Radiology Routine Nausea 10/27/2023 8:29 AM EDT [facility] Work Phone: End: 12-21-2024 NM Stomach Views for gastric emptying solid phase W radionuclide PO NM GASTRIC EMPTYING SOLID Radiology Routine Nausea 1 Occurrences starting 11/22/2023 until 12/21/2024 [facility] Work Phone: Comment on above: 1 Occurrences starting 11/22/2023 until 12/21/2024 Patient Education Colitis Dehydr ation, Adult ED Nausea and Vomiting, Adult ED [facility] Work Phone: Patient referral [facility] Work Phone: REFER FOR ADMIT INTERVIEW REFER FOR ADMIT INTERVIEW Procedures Routine Gastroparesis Gastroesophageal reflux disease, unspecified whether esophagitis present Severe protein-calorie malnutrition (HCC) Pre-operative examination Ordered: 11/02/2023 [facility] Comment on above: Ordered: 11/02/2023 End: 11-16-2024 RF videography Hypopharynx and Esophagus Views W liquid and paste contrast PO during swallowing XR MODIFIED BARIUM SWALLOW W SPEECH THERAPY Radiology Routine Chronic pulmonary aspiration, sequela 1 Occurrences starting 10/18/2023 until 11/16/2024 [facility] Work Phone: Comment on above: 1 Occurrences starting 10/18/2023 until 11/16/2024 End: 12-24-2022 SPIROMETRY WITH DILATOR IF OBSTRUCTED SPIROMETRY WITH DILATOR IF OBSTRUCTED PFT Routine Sarcoidosis Dyspnea on exertion 1 Occurrences starting 11/24/2021 until 12/24/2022 [facility] Work Phone: Comment on above: 1 Occurrences starting 11/24/2021 until 12/24/2022 End: 03-16-2024 SPIROMETRY WITH DILATOR IF OBSTRUCTED SPIROMETRY WITH DILATOR IF OBSTRUCTED PFT Routine Moderate persistent asthma, unspecified whether complicated Pulmonary sarcoidosis (HCC) 1 Occurrences starting 02/15/2023 until 03/16/2024 [facility] Work Phone: Comment on above: 1 Occurrences starting 02/15/2023 until 03/16/2024 SURGICAL PATHOLOGY [facility] Work Phone: Comment on above: Release Upon Ordering for 1 Occurrences starting 12/12/2023, [address] [facility] DAHLIA [facility] Immunizations Immunization Date Immunization Notes Care Provider Cinthya sanchez 04-06-2023 influenza virus vaccine, unspecified formulation Mark Mohr LMT Work Phone: [facility] 03-09-2022 influenza virus vaccine, unspecified formulation Smitha Gramajo FIREWORKS INSPECTOR.MACHINE MAINTENANCE SUPERVISOR Work Phone: [facility] 10-20-2020 COVID-19 vaccine, ag e 12+ yr (PFIZER-BIONTECH - PURPLE TOP) Tamara Tamez FIREWORKS INSPECTOR.MACHINE MAINTENANCE SUPERVISOR Work Phone: [facility] 04-30-2019 influenza, injectabl e, quadrivalent, preservative free Tamara Bodmann FIREWORKS INSPECTOR.MACHINE MAINTENANCE SUPERVISOR Work Phone: [facility] 05-18-2018 influenza, injectabl e, quadrivalent, preservative free Tamara Bodmann FIREWORKS INSPECTOR.MACHINE MAINTENANCE SUPERVISOR Work Phone: [facility] Work Phone: 03-31-2016 influenza, injectabl e, quadrivalent, preservative free Tamara Bodmann FIREWORKS INSPECTOR.MACHINE MAINTENANCE SUPERVISOR Work Phone: [facility] Work Phone: 04-08-2015 influenza, injectabl e, quadrivalent, preservative free Tamara Bodmann FIREWORKS INSPECTOR.MACHINE MAINTENANCE SUPERVISOR Work Phone: [facility] Work Phone: 04-02-2015 influenza, injectabl e, quadrivalent, preservative free Tamara Bodmann FIREWORKS INSPECTOR.[facility] Work Phone: [facility] Work Phone: 03-28-2014 influenza, seasonal, injectable, preservative free Tamara Bodmann FIREWORKS INSPECTOR.MACHINE MAINTENANCE SUPERVISOR Work Phone: [facility] 06-14-2013 influenza, seasonal, injectable Tamara Bodmann FIREWORKS INSPECTOR.MACHINE MAINTENANCE SUPERVISOR Work Phone: [facility] Payers Date Payer Category Payer Self-pay 2015 Private Health Insurance 2015 Private Health Insurance [employer] A ETNA CHOICE POS II [id number] 2015-Present [phone] [address] [place] [address] POS [id number] 2012 Private Health Insurance [id number] 1960 Unknown [id number] [id number] .182 1962 Unknown [id number] 2.16.840.1.268648.3.579.2 .718 1962 Unknown [id number] 2.16.840.1.646725.3.579.2 .718 1962 Unknown [id number] 2.16.840.1.511218.3.579.2 .1962 Unknown [id number] 2.16.840.1.006516.3.579.2 .8 1962 Unknown [id number] 2.16.840.1.470791.3.579.2 .8 1962 Unknown [id number] 2.16.840.1.324525.3.579.2 .8 1962 Unknown [id number] 2.16.840.1.212215.3.579.2 .8 1962 Unknown [id number] 2.16.840.1.042905.3.579.2 .8 1962 Unknown [id number] 2.16.840.1.276764.3.579.2 .718 1962 Unknown [id number] 2.16.840.1.695210.3.579.2 .718 1962 Unknown [id number] 2.16.840.1.251967.3.579.2 .8 1962 Unknown [id number] 2.16.840.1.909858.3.579.2 .8 1962 Unknown [id number] 2.16.840.1.604871.3.579.2 .718 1962 Unknown [id number] 2.16.840.1.542450.3.579.2 .718 1962 Unknown [id number] 2.16.840.1.681012.3.579.2 .718 1962 Unknown [id number] 2.16.840.1.184678.3.579.2 .718 1962 Unknown [id number] 2.16.840.1.764489.3.579.2 .718 1962 Unknown [id number] 2.16.840.1.265967.3.579.2 .718 1962 Unknown [id number] 2.16.840.1.516650.3.579.2 .1962 Unknown [id number] 2.16.840.1.744721.3.579.2 .718 1962 Unknown [id number] 2.16.840.1.286995.3.579.2 .718 1962 Unknown [id number] 2.16.840.1.991745.3.579.2 .718 1962 Unknown [id number] 2.16.840.1.384569.3.579.2 .718 Unknown Adele / [id number] Unknown [id number] 2.16.840.1.215176.3.579.2 .531 Unknown [id number] 2.16.840.1.843539.3.579.2 .531 Social History Date Type Detail Facility Start: 07-12-2018 End: 09-19-2023 Tobacco smoking status NHIS Never smoked tobacco [facility] Start: 07-12-2018 End: 09-19-2023 Tobacco use and exposure Smokeless tobacco non-user [facility] Start: 05-05-2021 End: 08-02-2023 Alcohol intake Current non-drinker of alcohol (finding) [facility] Start: 1960 Sex Assigned At Not on file [facility] Start: 11-08-2021 End: 03-28-2022 Exposure to SARS-CoV-2 (event) Not sure [facility] Start: 03-28-2022 End: 02-02-2023 History of Social function [facility] Start: 03-28-2022 End: 02-02-2023 Tobacco use panel [facility] Adult Depression Screening Assessment 0 [facility] Start: 1960 Sex Assigned At Female F [facility] Has the electric, ideaForge s, oil, or water company threatened to shut off services in your home in past 12Mo No [facility] Work Phone: (I/We) worried abril er (my/our) food would run out before (I/we) got money to buy more. Never true [facility] Work Phone: History of tobacco use Passive smoker [facility] Start: 09-19-2023 End: 12-12-2023 Alcohol intake Current drinker of alcohol (finding) [facility] Start: 09-19-2023 Alcohol Comment Beer every onc e in a while [facility] Clinical Notes 09-09-2021 to 01-05-2024 Telephone Encounter - Azalia Lam RN - 12/15/2023 12:58 PM EDTTelephone Encounter - Azalia Lam RN - 12/15/2023 12:58 PM Mark Mcclelland LMT - 12/14/2023 2:48 PM EDT Note Date & Type Note Facility 01-05-2024 Note [facility] 01-04-2024 Note [facility] 01-03-2024 Note [facility] 01-02-2024 Note [facility] 01-01-2024 Note [facility] 12-31-2023 Note [facility] 12-31-2023 Note [facility] 12-30-2023 Note [facility] 12-30-2023 Note [facility] 12-30-2023 Note [facility] 12-29-2023 Note [facility] 12-29-2023 Note [facility] 12-29-2023 Note [facility] 12-29-2023 Note [facility] 12-28-2023 Note [facility] 12-28-2023 Note [facility] 12-28-2023 Note [facility] 12-27-2023 Note [facility] 12-27-2023 Note [facility] 12-27-2023 Note [facility] 12-27-2023 Note [facility] 12-27-2023 Note [facility] 12-27-2023 Note [facility] 12-27-2023 Note [facility] 12-26-2023 Note [facility] 12-26-2023 Note [facility] 12-25-2023 Note [facility] 12-24-2023 Note [facility] 12-24-2023 Note [facility] 12-24-2023 Note [facility] 12-24-2023 Note [facility] 12-23-2023 Note [facility] 12-23-2023 Note [facility] 12-23-2023 Note [facility] 12-23-2023 Note [facility] 12-22-2023 Note [facility] 12-21-2023 Note [facility] 12-20-2023 Note [facility] 12-20-2023 Note [facility] 12-20-2023 Note [facility] 12-19-2023 Note [facility] 12-19-2023 Note [facility] 12-19-2023 Note [facility] 12-19-2023 Note [facility] 12-19-2023 Note HNO ID: [id number] Author: HUSEYIN MUNSON, LAVERNE Service: ? Author Type: Registered Nurse Type: Nursing Progress Note Filed: 12/19/2023 13:57 Note Text: Difficult IV start. Anesthesia at bedside. 22G placed RFA. [facility] 12-19-2023 Note [facility] 12-19-2023 Note [facility] 12-18-2023 Note [facility] 12-17-2023 Note [facility] 12-17-2023 Note [facility] 12-17-2023 Note HNO ID: [id number] Author: EMANUEL CASTORENA MD Service: Hospital Medicine Author Type: Physician Type: Plan of Care Filed: 12/17/2023 05:45 Note Text: BP was soft 500 cc bolus given BP improve Emanuel Castorena MD [facility] 12-16-2023 Note [facility] 12-15-2023 Note [facility] 12-15-2023 Telephone encounter Note [facility] COORDINATION TELEPHONE ENCOUNTER ABDOMINAL PAIN:No WHAT MAKES THE PAIN BETTER: N/A WHAT MAKES THE PAIN WORSE: N/A FEEDING TUBE: No IF YES, WHAT TYPE: TUBE FEED:N/ RATE: N/A CURRENT WEIGHT: 100LB Last recorded NAUSEA: Yes VOMITING: No CHANGE IN BOWEL: Yes; reports constipation for the last 7 days Patient reports having taken stool softeners, Miralax and Milk of Magnesia with no relief. LIGHTHEADED:Yes BLOATING: Yes ANY CHANGE IN PAIN WITH PO INTAKE: Yes ANY NEW FOODS: No OTHER QUESTIONS OR CONCERNS: Patient reports feeling full and unable to consume large amounts of food or drink. PLAN: ED recommended to evaluate for obstruction and hydration. MD and PA notified of call. Azalia RIVAS, RN [facility] Surgical [place] [employer] Operator Dr. Leonard Mckeon MD, PHD, [facility] Dr. Andrea RIVAS, RN [facility] 12-15-2023 Miscellaneous Notes [facility] SPECIALTY CARE COORDINATION TELEPHONE ENCOUNTER ABDOMINAL PAIN:No WHAT MAKES THE PAIN BETTER: N/A WHAT MAKES THE PAIN WORSE: N/A FEEDING TUBE: No IF YES, WHAT TYPE: TUBE FEED:N/ RATE: N/A CURRENT WEIGHT: 100LB Last recorded NAUSEA: Yes VOMITING: No CHANGE IN BOWEL: Yes; reports constipation for the last 7 days Patient reports having taken stool softeners, Miralax and Milk of Magnesia with no relief. LIGHTHEADED:Yes BLOATING: Yes ANY CHANGE IN PAIN WITH PO INTAKE: Yes ANY NEW FOODS: No OTHER QUESTIONS OR CONCERNS: Patient reports feeling full and unable to consume large amounts of food or drink. PLAN: ED recommended to evaluate for obstruction and hydration. MD and PA notified of call. Azalia RIVAS, RN [facility] Surgical [place] [employer] Operator Dr. Leonard Mckeon MD, PHD, [facility] Dr. Andrea RIVAS, RN documented in this encounter [facility] 12-14-2023 Note [facility] 12-14-2023 History of Presen t illness Narrative Patient Name: Zack Snow : 1960 Referred For: chair massage Diagnosis: muscle soreness Chief Complaint: Pain Anxiety (pre): 7 Pain (pre): 7 Stress Level (pre): 7 Therapy Provided: Massage Therapy Area(s) Treated: back Anxiety (post): 5 Pain (post): 6 Stress Level (post): 5 Visit Outcome: Better Comments: patient nauseous today Treatment Plan: relaxation Care Team contacted: N/A Signature: Mark Mohr LMT Date: December 14, 2023 Time: 2:49 PM documented in this encounter [facility] 12-12-2023 Nurse Note AMBULATORY PATIENT EDUCATION NOTE TOPIC: GI PROCEDURES: Esophagogastroduodenoscopy(EGD) for control of bleeding,dilation(any means),imaging,tube placement READINESS TO LEARN INSTRUCTION PROVIDED TO: Patient, readness to learn accessed prior to procedure COGNITIVE ABILITY: Alert and oriented PTED MOTIVATION TO LEARN: Interested FAMILY SUPPORT: Moderate - Family present but overwhelmed IPATIENT LEARNS BEST BY: Individual Instruction FACTORS AFFECTING LEARNING: None PHYSICAL LIMITATIONS AFFECTING LEARNING: None LEARNING RESPONSE METHOD OF INSTRUCTION: Individual instruction PATIENT / FAMILY RESPONSE: Verbalizes understanding of: WORSENING CONDITION-Signs and symptoms of a worsening condition that warrant a call to the physician FOLLOW-UP PLAN: Complete - No need for follow-up SUPPLEMENTAL MATERIAL: Procedure Discharge Instructions REFERRAL (RECOMMENDATION): None Electronically Signed By: Carmina Bagley RN [facility] 12-12-2023 Nurse Note AMBULATORY PATIENT EDUCATION NOTE TOPIC: GI PROCEDURES: Esophagogastroduodenoscopy(EGD) for control of bleeding,dilation(any means),imaging,tube placement READINESS TO LEARN INSTRUCTION PROVIDED TO: Patient, readness to learn accessed prior to procedure COGNITIVE ABILITY: Alert and oriented PTED MOTIVATION TO LEARN: Interested FAMILY SUPPORT: Moderate - Family present but overwhelmed IPATIENT LEARNS BEST BY: Individual Instruction FACTORS AFFECTING LEARNING: None PHYSICAL LIMITATIONS AFFECTING LEARNING: None LEARNING RESPONSE METHOD OF INSTRUCTION: Individual instruction PATIENT / FAMILY RESPONSE: Verbalizes understanding of: WORSENING CONDITION-Signs and symptoms of a worsening condition that warrant a call to the physician FOLLOW-UP PLAN: Complete - No need for follow-up SUPPLEMENTAL MATERIAL: Procedure Discharge Instructions REFERRAL (RECOMMENDATION): None documented in this encounter [facility] 12-12-2023 History and physical note HISTORY AND PHYSICAL Zack Snow, 63 year old female Current history and physical on file: Yes Is a new History and Physical required for today's visit? Yes Indication for procedure: Dysphagia PROCEDURE(S) SCHEDULED FOR: EGD (Esophagogastroduodenoscopy) with or without biopsies, removal of polyps or lesions, dilation ( any means), treatment of bleeding ( any means), Barrx treatment of Hossein's Esophagus, image tube placement or cryo therapy treatment based on clinical findings. BASELINE BEHAVIOR: Calm BASELINE ORIENTATION: A & O x3 All medications and allergies reviewed: Yes Skin Assessment: Warm dry mucus membranes pink Airway/Respiratory Assessment: Airway: visualization of the uvula- Yes Mouth: opening greater than 2 fingerbreadths- Yes Neck: full range of motion- Yes Breath sounds clear/equal- Yes Cardiac Assessment: Regular rate and rhythm without murmur Abdominal Assessment: Abdomen soft, non-tender, no masses or organomegaly. Sedation Plan: Moderate Additional Comments: None Nazia Granados MD [facility] Work Phone: 12-12-2023 History and physical note HISTORY AND PHYSICAL Zack Snow, 63 year old female Current history and physical on file: Yes Is a new History and Physical required for today's visit? Yes Indication for procedure: Dysphagia PROCEDURE(S) SCHEDULED FOR: EGD (Esophagogastroduodenoscopy) with or without biopsies, removal of polyps or lesions, dilation ( any means), treatment of bleeding ( any means), Barrx treatment of Hossein's Esophagus, image tube placement or cryo therapy treatment based on clinical findings. BASELINE BEHAVIOR: Calm BASELINE ORIENTATION: A & O x3 All medications and allergies reviewed: Yes Skin Assessment: Warm dry mucus membranes pink Airway/Respiratory Assessment: Airway: visualization of the uvula- Yes Mouth: opening greater than 2 fingerbreadths- Yes Neck: full range of motion- Yes Breath sounds clear/equal- Yes Cardiac Assessment: Regular rate and rhythm without murmur Abdominal Assessment: Abdomen soft, non-tender, no masses or organomegaly. Sedation Plan: Moderate Additional Comments: None Nazia Granados MD documented in this encounter [facility] 12-07-2023 Note [facility] 12-07-2023 History of Presen t illness Narrative Patient Name: Zack Snow : 1960 Referred For: chair massage Diagnosis: muscle soreness Chief Complaint: Pain Anxiety (pre): 7 Pain (pre): 7 Stress Level (pre): 7 Therapy Provided: Massage Therapy Area(s) Treated: back Anxiety (post): 5 Pain (post): 5 Stress Level (post): 5 Visit Outcome: Better Comments: patient has nausea, operation monday Treatment Plan: [facility] Care Team contacted: N/A Signature: Mark Mohr LMT Date: December 07, 2023 Time: 11:25 AM documented in this encounter [facility] 12-06-2023 Note [facility] 12-06-2023 History of Presen t illness Narrative Patient Name: Zack Snow : 1960 Referred For: chair massage Diagnosis: muscle soreness Chief Complaint: Pain Anxiety (pre): 6 Pain (pre): 6 Stress Level (pre): 6 Therapy Provided: Massage Therapy Area(s) Treated: back Anxiety (post): 5 Pain (post): 5 Stress Level (post): 5 Visit Outcome: Better Comments: belizean Treatment Plan: belizean Care Team contacted: N/A Signature: Mark Mohr LMT Date: December 06, 2023 Time: 11:41 AM documented in this encounter [facility] 12-05-2023 Telephone encounter Note Attempted to reach the patient at the contact number that they provided [phone] (home) . Unable to speak with patient so without identifying the patient the following information was left on their voice mail: Date of procedure, location and report time A message was left informing the patient/patient event marketing representative they must have a responsible adult accompany them to their procedure; and remain in the endoscopy area until they are discharged. Failure to have a responsible adult accompany the patient to their procedure appointment prevents the use of sedation or anesthesia for their procedure; and can result in cancellation of the procedure NPO instructions were reviewed. Clear liquids the day before the procedure, stop all liquids 4 hours before the procedure Instructions to contact their primary care provider regarding their medications and which medications to stop in preparation for their procedure Instructions to completely read and follow the written instructions that they recieved regarding their procedure. Number to call with questions or concerns [phone] Number to call to cancel their procedure [phone] Ashley Garcia RN [facility] 12-05-2023 Miscellaneous Notes Attempted to reach the patient at the contact number that they provided [phone] (home) . Unable to speak with patient so without identifying the patient the following information was left on their voice mail: Date of procedure, location and report time A message was left informing the patient/patient event marketing representative they must have a responsible adult accompany them to their procedure; and remain in the endoscopy area until they are discharged. Failure to have a responsible adult accompany the patient to their procedure appointment prevents the use of sedation or anesthesia for their procedure; and can result in cancellation of the procedure NPO instructions were reviewed. Clear liquids the day before the procedure, stop all liquids 4 hours before the procedure Instructions to contact their primary care provider regarding their medications and which medications to stop in preparation for their procedure Instructions to completely read and follow the written instructions that they recieved regarding their procedure. Number to call with questions or concerns [phone] Number to call to cancel their procedure [phone] Ashley Garcia RN documented in this encounter [facility] 12-05-2023 Instructions Sara Horan MD - 12/05/2023 3:56 PM EDT # suspected gastroparesis based on symptoms of nausea vomiting # post-surgical hypothyroidism, current TSH is 0.148 # GERD # sarcoidosis # history of papillary thyroid carcinoma s/p total thyroidectomy in 2019 and adjuvant RT # vocal cord paralysis after surgery for the above # oropharyngeal dysphagia, improved after dilation by Dr. Gutierrez # esophageal candidiasis, risk factor includes Symbicort # weight loss # severe protein malnutrition, currently with Corpak-- Nutren 1.5 50 mL/hr for 22 hours # recent hospitalization for aspiration pneumonia # constipation No improvement after POP, Reglan helped the most previously. Plan: - go back on Reglan 5 mg three times a day EKG today to monitor Qtc interval - Remeron 7.5 mg once a day at bedtime, stop Zofran - EGD with conscious sedation, eval for candidiasis, achalasia, Savary dilation, 15 mm (last dilated to [address] Gutierrez) - bowel regimen: - Take MiraLAX (17 g, one capful) in a 6 oz of warm water in the morning, generic Miralax is ok. - another warm beverage - In 30 minutes after the above, get into the habit of sitting on the toilet. Try Squatty Potty, or a stool or box that is 7 inches high, to prop your feet up to allow more effective bowel movements. - Hydrate throughout the day with just flat unflavored water (regular water). Avoid artificial sweeteners or carbonation. - Eat more fiber: fruits (peaches, prunes, nectarines, kiwis), vegetables; avoid bananas, apples, peanut butter documented in this encounter [facility] 12-05-2023 Note [facility] 12-05-2023 History of Presen t illness Narrative Zack Snow, 63 year old female here for follow-up for nausea. - no response after POP - nauseated all the time, on Reglan once a day, if she takes Reglan twice a day, she feels better - dysphagia is worse, spitting up phlegm all the time - Corpak removed, only drinking sips of water - constipated, has not been to the bathroom in 3 days GI EVALUATION Reviewed Note by Dr. 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 She is working on what she can tolerate orally due to her dysphagia, however not meeting her needs. Will change formula to Nutren 2.0 and cycle for better quality of life. As she had an aspiration event with feeding in to the stomach, advise for direct J tube, will arrange with surgical colleagues to see if they can arrange quickly Will arrange for micronutrients screening, advise to take Vitamin D at least 2000 international unit(s) daily. #) Dysphagia/ ?gastroparesis Managed by others, noted to have a liquid GES in care everywhere that was delayed but no solid one has been performed. Op note by Dr. Mckeon 11/13/23 CLINICAL HISTORY: Ms. Snow is a 63 year old female with idiopathic gastroparesis. She could not tolerate a solid gastric emptying study and subsequent liquid gastric emptying study demonstrated only 4% emptying at 1 hr consistent with severe gastroparesis. She had EGD with Corpak placement on 09/18 which demonstrated bilious gastric fluid. She was consented for a G-POEM. The scope was then gently negotiated down a normal size, normal-appearing esophagus. At the GE junction, there was no hiatal hernia. There was no esophagitis. The Z-line was regular. The scope was then advanced into the stomach. There was bilious gastric content present which was suctioned. There gastric mucosa was normal. The pylorus was patent but tight. The duodenum was examined and was normal. The scope was then brought back in the stomach and the scope was retroflexed to view the cardiac/GE junction of the stomach. There was no hiatal hernia visualized. We proceeded to perform gastric peroral endoscopic myotomy. Blue Boost was injected 2 cm proximal to the pylorus on the lesser curvature of the stomach in the submucosal layer. Using the triangular tip knife, a 2 cm mucosotomy was created transversely. A submucosal tunnel was then made with a triangular tip knife. This exposed the pylorus. A full-thickness pyloromyotomy was then performed. The mucosotomy was then closed with 5 clips. [facility] [place] 11/22/23 IMPRESSIONS: Functional oral phase skills; moderate pharyngeal dysphagia involving generalized weakness, absent inversion of epiglottis, increasing amounts of residue (50-90% of pudding and moistened cracker) for dense material; and repeated reswallows to clear. Retention is noted throughout the pharynx, but greatest along the aryepiglottic folds and pyriforms. Cervical esophageal dysphagia also persists with retention of all bolus types, not efficiently cleared by water wash (multiple reswallows needed)...appearing like an out-pouching or diverticulum on the right. Limited esophageal sweep showed what appeared to be very delayed passage through the LES. PROGNOSIS: Guarded given LATE RAD effects coupled with GI issues RECOMMENDATIONS: - Continue Minced and Moist (L5) with thin liquids as tolerated; small meals throughout the day; Add moisture to meal trays (sauces or gravies); more soups; prepared puree that is thinned. - Advance amounts of liquid nutrition as tolerated (patient c/o gastric discomfort with Boost) perhaps protein shakes or other formulations - Strategies: Sit as upright as able for all PO and for 45-60 minutes after eating Alternate dense material w/liquids; use 2-3 swallow per bite / sip Feed at slow rate - Consider consult to OT for lymphedema tx PLAN: Pt should follow up with referring physician. Trial of swallow tx may help to strategize increasing calories and mass swallow practice for pharyngeal strengthening BUCK ca 08/2023 # suspected gastroparesis based on symptoms of nausea vomiting # post-surgical hypothyroidism, current TSH is 0.148 # GERD # sarcoidosis # history of papillary thyroid carcinoma s/p total thyroidectomy in 2019 and adjuvant RT # vocal cord paralysis after surgery for the above # oropharyngeal dysphagia, improved after dilation by Dr. Gutierrez # esophageal candidiasis, risk factor includes Symbicort # weight loss # severe protein malnutrition, currently with Corpak-- Nutren 1.5 50 mL/hr for 22 hours # recent hospitalization for aspiration pneumonia # constipation Zack has had worsening of chronic symptoms since increase of her levothyroxine. She recalls unintentional weight loss with each increase of levothyroxine. She now has all the symptoms of gastroparesis although there is no formal diagnosis via a gastric emptying study. Her TSH is 0.148, which is significantly lower compared to 02/2023 before her levothyroxine was increased. I discussed with her that although we see gastroparesis/nausea/vomiting more in patients with hypothyroidism, we also see it in patients with hyperthyroidism. 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 In terms of tube feeds-- she does appear to be taking in adequate amounts orally, so I am not sure that she would require enteral feeding senior living especially if her thyroid status can be improved. Therefore, I recommend a nutrition consult to evaluate for caloric counting PO, and to remove Corpak once she reaches adequate PO intake. In terms of medical therapy for gastroparesis, hopefully this will resolve/ improve with decreasing her levothyroxine, but for now, I would decrease Reglan to 3 times a day as needed. - decrease Reglan to 5 mg 3 times a day, if no significant worsening of nausea/vomiting in 1 week, then decrease further to twice a day, and if no significant worsening of nausea/vomiting, then decrease to 5 mg once a day at bed time. - continue bowel regimen with Miralax to avoid constipation - oropharyngeal dysphagia, this has improved significantly with dilation by Dr. Gutierrez ALLERGIES Allergen Reactions Mold Other: See Comments Cough, sneezing, congestion Strawberry Unknown OAK TREE ALLERGY REVEALED FROM ALLERGY TESTING Sulfa (Sulfonamide * GI Upset Current Outpatient Medications Medication Sig Dispense Refill sucralfate (CARAFATE) 1 gram tablet Take 1 tablet by mouth two times a day before meals. 40 tablet 0 ondansetron (ZOFRAN) 4 mg tablet Take 1 tablet by mouth every 8 hours as needed for nausea/vomiting (for nausea.). 90 tablet 3 levothyroxine (EUTHYROX) 112 mcg tablet Take 1 tablet by mouth daily before breakfast. 90 tablet 0 budesonide (PULMICORT) 0.5 mg/2 mL nebulizer solution Use 2 mL via nebulizer two times a day. 120 mL 3 metoclopramide HCl (REGLAN) 5 mg tablet Take 1 tablet by mouth four times daily. 120 tablet 2 azelastine 0.1% nasal spray Use 2 Sprays in each nostril two times a day as needed. 30 mL 5 triamcinolone acetonide (NASACORT) 55 mcg nasal inhaler Use 2 Sprays in the nose once daily. 10.8 mL 5 cetirizine (ZYRTEC) 5 mg tablet Take 1 tablet by mouth two times a day as needed for cold/allergy symptoms. 60 tablet 5 acetaminophen (TYLENOL) 325 mg tablet Take 2 tablets by mouth every 6 hours as needed for pain. guaiFENesin (ROBITUSSIN) 100 mg/5 mL syrup Take 20 mL by mouth every 4 hours as needed for cough. melatonin 3 mg tablet Take 1 tablet by mouth at bedtime as needed for insomnia. polyethylene glycol 3350 17 gram packet Take 1 Packet by mouth once daily. Dissolve dose in 4 - 8 ounces of liquid and take as directed. psyllium (METAMUCIL) 3.4 gram packet Take 1 Packet by mouth two times a day. senna (SENOKOT) 8.6 mg tab Take 1-2 tablets by mouth two times a day. triamcinolone (KENALOG) 0.025 % cream Apply to affected area two times a day. fluoride, sodium, (DENTA-GEL) 1.1 % gel 1 application by DENTAL route daily at bedtime. 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 270 mL 1 estradiol (CLIMARA) 0.1 mg/24 hr Apply 1 Patch as directed one time a week. montelukast (SINGULAIR) 10 mg tablet Take 1 tablet by mouth daily at bedtime. 30 tablet 5 albuterol HFA (PROAIR HFA) 90 mcg/actuation inhaler 1-2 Puffs every 6 hours as needed for wheezing/shortness of breath. 1 Each 1 amLODIPine (NORVASC) 2.5 mg tablet Take 2.5 mg by mouth once daily. pantoprazole DR (PROTONIX) 40 mg tablet Take 1 tablet by mouth two times a day for 14 days. 28 tablet 0 No current facility-administered medications for this visit. Past medical, surgical and social history is reviewed and unchanged from prior visit. PHYSICAL EXAMINATION BP 96/68 Pulse 91 Temp (Src) 98.3 (Temporal) Ht 5' 6 (1.68m) Wt 100 lb 9.6 oz (45.6kg) SpO2 98% BMI 16.25 kg/(m^2). General - Normal, healthy, cooperative, in no acute distress Able to interact well. Psych - ORIENTATION: normal to time place, person and situation Mood/Affect: AFFECT AND MOOD: Normal Head/Neuro - Normal size and shape Facial appearance normal Pulmonary - respiratory effort normal Peripheral - extremities normal, warm, no cyanosis,no clubbing, and no edema Skin - abnormal lesions not visualized Motor - patient seen sitting with Normal appearing strength and coordination Assessment ASSESSMENT AND PLAN # suspected gastroparesis based on symptoms of nausea vomiting # post-surgical hypothyroidism, current TSH is 0.148 # GERD # sarcoidosis # history of papillary thyroid carcinoma s/p total thyroidectomy in 2019 and adjuvant RT # vocal cord paralysis after surgery for the above # oropharyngeal dysphagia, improved after dilation by Dr. Gutierrez # esophageal candidiasis, risk factor includes Symbicort # weight loss # severe protein malnutrition, currently with Corpak-- Nutren 1.5 50 mL/hr for 22 hours # recent hospitalization for aspiration pneumonia # constipation # moderate protein malnutrition No improvement after POP, Reglan helped the most previously. Plan: - go back on Reglan 5 mg three times a day EKG today to monitor Qtc interval - Remeron 7.5 mg once a day at bedtime, stop Zofran - EGD with conscious sedation, eval for candidiasis, achalasia, Savary dilation, 15 mm (last dilated to [address] Gutierrez) - labs: CMP, prealbumin, TSH - bowel regimen: - Take MiraLAX (17 g, one capful) in a 6 oz of warm water in the morning, generic Miralax is ok. - another warm beverage - In 30 minutes after the above, get into the habit of sitting on the toilet. Try Squatty Potty, or a stool or box that is 7 inches high, to prop your feet up to allow more effective bowel movements. - Hydrate throughout the day with just flat unflavored water (regular water). Avoid artificial sweeteners or carbonation. - Eat more fiber: fruits (peaches, prunes, nectarines, kiwis), vegetables; avoid bananas, apples, peanut butter I spent a total of 40 minutes on the date of the service which included preparing to see the patient, [id number] patient care, completing clinical documentation, obtaining and/or reviewing separately obtained history, counseling and educating the patient/family/caregiver and ordering medications, tests, or procedures. Sara Horan MD December 05, 2023 3:38 PM documented in this encounter [facility] 11-29-2023 Note [facility] 11-29-2023 History of Presen t illness Narrative Patient Name: Zack Snow : 1960 Referred For: chair massage Diagnosis: muscle soreness Chief Complaint: Pain Anxiety (pre): 6 Pain (pre): 6 Stress Level (pre): 6 Therapy Provided: Massage Therapy Area(s) Treated: back Anxiety (post): 4 Pain (post): 4 Stress Level (post): 4 Visit Outcome: Better Comments: belizean Treatment Plan: belizean Care Team contacted: N/A Signature: Mark Mohr LMT Date: November 29, 2023 Time: 3:28 PM documented in this encounter [facility] 11-22-2023 Note [facility] 11-22-2023 History of Presen t illness Narrative Patient Name: Zack Snow : 1960 Referred For: chair massage Diagnosis: muscle soreness Chief Complaint: Pain Anxiety (pre): 5 Pain (pre): 5 Stress Level (pre): 5 Therapy Provided: Massage Therapy Area(s) Treated: back Anxiety (post): 3 Pain (post): 3 Stress Level (post): 3 Visit Outcome: Better Comments: spine seems in better alignment, patient feeling better since recent surgery Treatment Plan: belizean Care Team contacted: N/A Signature: Mark Mohr LMT Date: November 22, 2023 Time: 2:46 PM documented in this encounter [facility] 11-22-2023 Note [facility] 11-22-2023 History of Presen t illness Narrative HISTORY AND PHYSICAL EXAMINATION SERVICE DATE: 11/22/2023 SERVICE TIME: PRIMARY CARE PHYSICIAN: John Mendes Sr, DO Subjective CHIEF COMPLAINT: post POP follow up HPI: This is a 63 year old female who presents to out patient clinic for post POP follow up she underwent POP 11/13/2023. She presented to local ED with Asthma attach post procedure day number 1. Today she reports approximately 60 percent reduction in GP symptoms, She is maintaining hydration protein intake. She has advanced diet to soft foods. She does report some central abdominal discomfort which has been improving since surgery FUNCTIONAL STATUS: Independent PAST MEDICAL HISTORY Diagnosis Date Adjustment disorder with anxiety Asthma COPD (chronic obstructive pulmonary disease) (HCC) HTN (hypertension) Papillary thyroid carcinoma (HCC) PAST SURGICAL HISTORY Procedure Laterality Date CATARACT EXTRACTION HX LAPAROSCOPY SURG CHOLECYSTECTOMY REMOVAL OF KIDNEY STONE THYROIDECTOMY TOTAL/COMPLETE FAMILY HISTORY Problem Relation Age of Onset Heart Attack Father 66 Cancer Other Social History Tobacco Use Smoking status: Never Passive exposure: Past Smokeless tobacco: Never Vaping Use Vaping Use: Never used Substance Use Topics Alcohol use: Yes Comment: Beer every once in a while Drug use: No (Not in a hospital admission) ALLERGIES Allergen Reactions Mold Other: See Comments Cough, sneezing, congestion Strawberry Unknown OAK TREE ALLERGY REVEALED FROM ALLERGY TESTING Sulfa (Sulfonamide * GI Upset COMPLETE REVIEW OF SYSTEMS: Objective PHYSICAL EXAM: Physical Exam Performed: General alter and oriented times 3 Abdomen soft, no tenderness BP 151/101 Pulse 98 Ht 5' 5.748 (1.67m) Wt 106 lb 6.4 oz (48.3kg) BMI 17.31 kg/(m^2). DATA: Diagnostic tests reviewed for today's visit: Assessment/Plan 1) paitent reports 60 percent reduction of GP symptoms since POP 2) reviewed importance of hydration protein intake, patient has advance to soft foods 3) continue PPI Carafate to completion 4) RTC for GES at 3 months and routine follow up 5) follow up with speech therapy for dysphagia SIGNATURE: Ganesh Richardson PA-C PATIENT NAME: Zack Snow DATE: November 22, 2023 TIME: 10:34 AM documented in this encounter [facility] 11-22-2023 Note IMPRESSION: SWALLOWI NG EVALUATION PERFORMED BY SPEECH PATHOLOGY. Veterinary X Ray Operator: SGAAR Transcribe Date/Time: Nov 22 2023 8:48A Dictated by : HUSEYIN MCMANUS MD This examination was interpreted and the report reviewed and electronically signed by: HUSEYIN MCMANUS MD on Nov 22 2023 8:49AM EST DIVISION OF RADIOLOGY 11-22-2023 History of Presen t illness Narrative Radiology Service Progress Note PATIENT NAME: Zack Snow DATE OF SERVICE: November 22, 2023 TIME: 8:32 AM PATIENT IDENTITY VERIFICATION COMPLETED USING TWO (2) IDENTIFIERS: Name and Date of confirmed by patient verbally. FALL SCREENING: Has the patient had 2 falls in the last year or 1 fall with injury or currently using an Ambulatory Assistive Device (Walker, Cane, Wheelchair, Crutches, etc.)? No PATIENT GENDER DATA: Female. status: : No status: NO. PATIENT RELEVANT IMPLANT DATA REVIEWED: Not Applicable PATIENT PRESENTS WITH AN IMPLANTABLE OR ATTACHED LANGUAGE TUTOR: No RADIOLOGY DEPARTMENT: General X-ray: Exam(s) Completed: GI/ Procedure(s): Modified barium swallow with barium contrast PERIPHERAL IV DATA: Not applicable SIGNED BY: RT Jhoana(R) November 22, 2023 8:32 AM documented in this encounter [facility] 11-22-2023 Note [facility] 11-22-2023 Note [facility] 11-22-2023 History of Presen t illness Narrative Images from the original note were not included. [facility] SPEECH PATHOLOGY Repeat Modified Barium Swallow Study Date: November 22, 2023 Patient: Zack Snow [facility] Number: [id number] IMPRESSIONS: Functional oral phase skills; moderate pharyngeal dysphagia involving generalized weakness, absent inversion of epiglottis, increasing amounts of residue (50-90% of pudding and moistened cracker) for dense material; and repeated reswallows to clear. Retention is noted throughout the pharynx, but greatest along the aryepiglottic folds and pyriforms. Cervical esophageal dysphagia also persists with retention of all bolus types, not efficiently cleared by water wash (multiple reswallows needed)...appearing like an out-pouching or diverticulum on the right. Limited esophageal sweep showed what appeared to be very delayed passage through the LES. PROGNOSIS: Guarded given LATE RAD effects coupled with GI issues RECOMMENDATIONS: - Continue Minced and Moist (L5) with thin liquids as tolerated; small meals throughout the day; Add moisture to meal trays (sauces or gravies); more soups; prepared puree that is thinned. - Advance amounts of liquid nutrition as tolerated (patient c/o gastric discomfort with Boost) perhaps protein shakes or other formulations - Strategies: Sit as upright as able for all PO and for 45-60 minutes after eating Alternate dense material w/liquids; use 2-3 swallow per bite / sip Feed at slow rate - Consider consult to OT for lymphedema tx PLAN: Pt should follow up with referring physician. Trial of swallow tx may help to strategize increasing calories and mass swallow practice for pharyngeal strengthening Portions of this note have been copied and edited from previous notes and updated. Blaire Wright MA CCC-SANDING MACHINE BUFFER Speech Language Pathologist DIAGNOSIS / HISTORY: 63 year old female referred for a repeat MBS to assess oropharyngeal swallow status. 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 S/P Restylane (0.6 mL) and CP balloon dilation 04/16/19. - Laryngoscopy with Dr. Gutierrez on 06/13/23: Pooling secretions in the hypopharynx. The base of tongue showed no gross lesions. The larynx itself showed no lesions. Right VC motion: immobile Left VC motion: mild to mod hypomobile - MBS 06/16/2023: Functional oral phase swallow and a mild pharyngeal phase dysphagia. Pharyngeal phase dysphagia characterized by some generalized pharyngeal weakness, but with no laryngeal penetration or aspiration visualized. Moderate to severe pharyngeal residue (thin < purees) at the level of the piriforms upon completion of the swallow. - the majority of pharyngeal residue is a result of narrowing at the level of C6, causing obstruction of bolus flow. - GI: diagnosed with idiopathic gastroparesis; underwent Gastric per-oral endoscopic myotomy on 11/13/2023 PAST MEDICAL HISTORY Diagnosis Date Adjustment disorder with anxiety Asthma COPD (chronic obstructive pulmonary disease) (HCC) HTN (hypertension) Papillary thyroid carcinoma (HCC) PAST SURGICAL HISTORY Procedure Laterality Date CATARACT EXTRACTION HX LAPAROSCOPY SURG CHOLECYSTECTOMY REMOVAL OF KIDNEY STONE THYROIDECTOMY TOTAL/COMPLETE Patient reports some improved swallowing for liquids and soft, moistened foods. She reported tolerating bites of chicken yesterday (dark meat). She may still cough occasionally while eating / drinking. She eats several small meals over the course of the day. She sometimes drinks liquid nutrition such as Boost / Ensure. HEARING STATUS: adequate BEHAVIORAL OBSERVATIONS: Alert MANAGEMENT OF SECRETIONS: Clear, dry oral cavity PRESENT FEEDING METHOD: Oral, Corpak removed Diet Level: Minced and Moist (L5) and Pureed (L4) with thin liquids Dentition: Adequate Respiratory: Tracheostomy: No O2: Room Air ORAL MECHANISM EVALUATION : Symmetrical face at rest. Mandibular, labial, lingual, and velar strength and ROM appeared WNL for speech and swallow tasks. Oral mucosa was dry, but clean: LARYNGEAL Wet Vocal Quality: No Cough: Within Functional Limits Clear Throat: Within Functional Limits SPEECH PRODUCTION Articulation: Within Functional Limits Intelligibility: Within Functional Limits Vocal Quality: Impaired - Harsh, Hoarse Vocal Intensity: Impaired Rate / Prosody: Within Functional Limits POSITION OF PATIENT: Seated in chair, Standing VIEW: Lateral, A-P, Oblique CONSISTENCIES GIVEN: Lg cracker dunked in HD Barium liquid Pudding Barium Socorro thick Barium liquid Thin Barium liquid water LIQUIDS GIVEN VIA: Cup Oral Phase: Lip Closure: 0 = No labial escape Tongue Control: 0 = Cohesive bolus between tongue to palate seal Bolus Preparation/Mastication: 0 = Timely and efficient chewing and mashing Bolus Transport/Lingual Motion: 2 = Slowed tongue motion Oral Residue: 1 = Trace residue lining oral structures Initiation of Pharyngeal Swallow: 2 = Bolus head at posterior laryngeal surface of epiglottis Pharyngeal Phase: Soft Palate Elevation: 0 = No bolus between soft palate / pharyngeal wall Laryngeal Elevation: 1 = Partial superior movement of thyroid cartilage / partial approximation of arytenoids to epiglottic petiole Anterior Hyoid Excursion: 1 = Partial anterior movement Epiglottic Movement: 2 = No inversion Laryngeal Vestibule Closure: 1 = Incomplete; narrow column air/contrast in laryngeal vestibule Pharyngeal Stripping Wave: 1 = Present - diminished Pharyngeal Contraction: 2 = Unilateral Bulging (right sided bulging) Pharyngoesophageal Segment Openin = Partial distension/partial duration; partial obstruction of flow Tongue Base Retraction: 1 = Trace column of contrast or air between tongue base and pharyngeal wall Pharyngeal Residue: 3 = Majority of contrast within or on pharyngeal structures (requires 2-3 re-swallows; marginal benefit from liquid wash) Esophageal Screening: Esophageal Clearance Upright Position: 1 = Esophageal retention Penetration Aspiration Scale (PAS): Minced and Moist (IDDSI L5) - 1 - Material does not enter the airway Pureed (IDDSI L4) - 1 - Material does not enter the airway Mildly Thick / Socorro Thick (IDDSI 2) - 1 - Material does not enter the airway Thin Liquids (IDDSI 0) - 3 - Material enters the airway, remains above the vocal folds, and is not ejected from the airway (rare. trace occurrences) Results and Recommendations discussed with: Patient Onset of Illness: 04/16/19 Initial Date of Treatment: 06/16/2023 Treatment Plan Date: November 22, 2023 Blaire Wright MA CCC-SANDING MACHINE BUFFER Clinical Speech Pathologist Head & Neck Specialist Pager [phone] documented in this encounter [facility] 11-13-2023 Note [facility] 11-13-2023 Note [facility] 11-08-2023 Note [facility] 11-08-2023 History of Presen t illness Narrative Patient Name: Zack Snow : 1960 Referred For: chair massage Diagnosis: muscle soreness Chief Complaint: Pain Anxiety (pre): 6 Pain (pre): 6 Stress Level (pre): 6 Therapy Provided: Massage Therapy Area(s) Treated: back, thoracic focus Anxiety (post): 4 Pain (post): 5 Stress Level (post): 4 Visit Outcome: Better Comments: patient dizzy before and after massage Treatment Plan: very light belizean Care Team contacted: N/A Signature: Mark Mohr LMT Date: November 08, 2023 Time: 3:28 PM documented in this encounter [facility] 11-08-2023 History and physical note HISTORY AND PHYSICAL EXAMINATION SERVICE DATE: 11/08/2023 SERVICE TIME: 2:22 PM PRIMARY CARE PHYSICIAN: John Mendes Sr, DO REASON FOR VISIT: Zack Snow is a 63 year old female who is scheduled for ENDOSCOPIC PER-ORAL PYLOROMYOTOMY at the request of Dr. Leonard Mckeon for consultation. My final recommendation will be communicated back to the requesting physician by way of shared medical record or letter. The patient has the following: ACTIVE PROBLEM LIST Htn (Hypertension) Adjustment Disorder With Anxiety Papillary Thyroid Carcinoma (Hcc) Gerd (Gastroesophageal Reflux Disease) Pericardial Effusion (Noninflammatory) Pulmonary Sarcoidosis (Hcc) Vocal Cord Paralysis Asthma Hypothyroidism Gastroparesis Severe Protein-Calorie Malnutrition (Hcc) Microcytic Anemia Vitamin D Deficiency Feeding Tube Dysfunction, Initial Encounter Malnutrition of Moderate Degree (Hcc) On Home O2 Subjective CHIEF COMPLAINT: Pre-op exam HPI: This is a 63 year old female that is scheduled for the above procedure. Patient has a history of gastroparesis. Currently has a continuous feeding tube, denies any difficulty with tube feeding. She denies any pain at this time. Denies N/V. PAST MEDICAL HISTORY Diagnosis Date Adjustment disorder with anxiety Asthma COPD (chronic obstructive pulmonary disease) (HCC) HTN (hypertension) Papillary thyroid carcinoma (HCC) PAST SURGICAL HISTORY Procedure Laterality Date CATARACT EXTRACTION HX LAPAROSCOPY SURG CHOLECYSTECTOMY REMOVAL OF KIDNEY STONE THYROIDECTOMY TOTAL/COMPLETE FAMILY HISTORY Problem Relation Age of Onset Heart Attack Father 66 Cancer Other SOCIAL HISTORY: Social History Tobacco Use Smoking status: Never Passive exposure: Past Smokeless tobacco: Never Vaping Use Vaping Use: Never used Substance Use Topics Alcohol use: Yes Comment: Beer every once in a while Drug use: No MEDICATIONS: Prior to Admission medications as of 11/08/23 1428 Medication Sig Last Dose Taking ondansetron (ZOFRAN) 4 mg tablet Take 1 tablet by mouth every 8 hours as needed for nausea/vomiting (for nausea.). Taking Yes levothyroxine (EUTHYROX) 112 mcg tablet Take 1 tablet by mouth daily before breakfast. Taking Yes budesonide (PULMICORT) 0.5 mg/2 mL nebulizer solution Use 2 mL via nebulizer two times a day. Taking Yes metoclopramide HCl (REGLAN) 5 mg tablet Take 1 tablet by mouth four times daily. Taking Yes azelastine 0.1% nasal spray Use 2 Sprays in each nostril two times a day as needed. Taking Yes triamcinolone acetonide (NASACORT) 55 mcg nasal inhaler Use 2 Sprays in the nose once daily. Taking Yes cetirizine (ZYRTEC) 5 mg tablet Take 1 tablet by mouth two times a day as needed for cold/allergy symptoms. Taking Yes nutritional supplement (NUTREN 2.0) 0.08 G - 2 Kcal/mL oral liquid Infuse 4 cartons of Nutren 2.0 through [employer] Pump at 85 ml/hr for 12 hours. Flush 60 ml 6 times per day Taking Yes acetaminophen (TYLENOL) 325 mg tablet Take 2 tablets by mouth every 6 hours as needed for pain. Taking Yes nutritional supplements (NUTREN 1.5) 0.07 gram-1.5 kcal/mL liqd Enteral/Tube Feedings: Nutren 1.5 or equivalent formula Goal Rate (mL/hr x hours): 50 ml/hr x 22 hours (1100 ml total volume provides 1650 kcals, 74 g protein, 840 ml free water) Water Flush Volume (mL x frequency: at least 30 ml 6x/day for tube patency; up to 135 ml 6x/day for goal hydration Taking Yes senna (SENOKOT) 8.6 mg tab Take 1-2 tablets by mouth two times a day. Taking Yes esomeprazole magnesium (NEXIUM) 40 mg packet Take 40 mg by mouth daily before breakfast. Taking Yes albuterol (PROVENTIL) 2.5 mg /3 mL (0.083 %) nebulizer solution Use 3 mL via nebulizer every 4 hours as needed for wheezing/shortness of breath. Taking Yes estradiol (CLIMARA) 0.1 mg/24 hr Apply 1 Patch as directed one time a week. Taking Yes montelukast (SINGULAIR) 10 mg tablet Take 1 tablet by mouth daily at bedtime. Taking Yes albuterol HFA (PROAIR HFA) 90 mcg/actuation inhaler 1-2 Puffs every 6 hours as needed for wheezing/shortness of breath. Taking Yes amLODIPine (NORVASC) 2.5 mg tablet Take 2.5 mg by mouth once daily. Taking Yes ergocalciferol 50,000 unit capsule (VITAMIN D2, DRISDOL) Take 1 capsule by mouth one time a week. Patient not taking: Reported on 10/18/2023 guaiFENesin (ROBITUSSIN) 100 mg/5 mL syrup Take 20 mL by mouth every 4 hours as needed for cough. melatonin 3 mg tablet Take 1 tablet by mouth at bedtime as needed for insomnia. polyethylene glycol 3350 17 gram packet Take 1 Packet by mouth once daily. Dissolve dose in 4 - 8 ounces of liquid and take as directed. psyllium (METAMUCIL) 3.4 gram packet Take 1 Packet by mouth two times a day. triamcinolone (KENALOG) 0.025 % cream Apply to affected area two times a day. fluoride, sodium, (DENTA-GEL) 1.1 % gel 1 application by DENTAL route daily at bedtime. Nebulizer Accessories kit Please supply her with the nebulizer kit to product safety technician to her machine No medication comments found. CURRENT ALLERGIES: ALLERGIES Allergen Reactions Mold Other: See Comments Cough, sneezing, congestion Strawberry Unknown OAK TREE ALLERGY REVEALED FROM ALLERGY TESTING Sulfa (Sulfonamide * GI Upset Covid Immunization Dates Covid-19 Vaccine (Series Information) Completed 04/06/2023 Imm Admin: COVID-19 vaccine, age 12+ yr, 2022- season (MODERNA) 08/26/2021 Imm Admin: COVID-19 original vaccine, age 12+ yr, monovalent ([employer] - AMBROSE TOP) 11/11/2020 Imm Admin: COVID-19 original vaccine, age 12+ yr, monovalent ([employer] - PURPLE TOP) 10/20/2020 Imm Admin: COVID-19 original vaccine, age 12+ yr, monovalent ([employer] - PURPLE [facility]) REVIEW OF SYSTEMS: PAIN ASSESSMENT: General: No weight loss, malaise or fevers. 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 No neurological symptoms or problems. Respiratory: Positive for Asthma, Home O2 at 1 liters, pulmonary sarcoidosis, Negative for Current cough, Dyspnea Cardiovascular: Positive for: Hypertension, Negative for Arrhythmia, CAD, Chest Pain, DVT/PE GI: See HPI : No history of dysuria, frequency or incontinence,, stones or chronic kidney disease, No difficulty urinating, nocturia > 1 time per night or hematuria Endocrine: Hypothyroidism Hematology: Anemia of chronic disease Oncology: No history of CA metastasis, chemo within 30 days, or radiotherapy within 90 days. Has not lost 10% of body wt in 6 months. No history of oncological symptoms or problems. Psych: Anxiety, Depression Musculoskeletal: Back pain Skin: Negative for lesions, rash and itching. Objective PHYSICAL EXAM: VITALS: BP 98/62 Pulse 76 Temp (Src) 97.7 (Temporal) Resp 16 Ht 5' 6 (1.68m) Wt 106 lb 14.8 oz (48.5kg) SpO2 93% BMI 17.27 kg/(m^2). General: Alert and oriented, No acute distress Skin: Normal color, no rash, no lesions. HEENT: EOM, pupils equal, round and reactive. Cardiovascular: Normal S1 & S2, no rubs, murmurs or gallops. No JVD. Pulse regular. Lungs: Normal breath sounds, no wheezes or crackles. Abdomen: Soft, non-tender, no rigidity., No masses or organomegaly. Extremities: No deformity, no edema or tenderness, no joint swelling or clubbing. Neurological: Normal cognition and motor skills. Gait normal. No weakness or sensory deficit. Pulses: Carotid and radial pulses normal +2. Diagnostic tests reviewed for today's visit: Lab Value Units Date High Low HB 11.4 g/dL 11/01/2023 15.5 11.5 HCT 34.8 % 11/01/2023 46.0 36.0 WBC 6.59 k/uL 11/01/2023 11.00 3.70 PLT 238 k/uL 11/01/2023 400 150 NA 140 mmol/L 11/01/2023 144 136 K 3.5 mmol/L 11/01/2023 5.1 3.7 GLUC 77 mg/dL 11/01/2023 99 74 BUN 33 mg/dL 11/01/2023 21 7 CREAT 1.04 mg/dL 11/01/2023 0.96 0.58 PTSEC 11.4 sec 09/19/2023 13.0 9.7 INR 1.1 no uni* 09/19/2023 1.3 0.9 APTT No results within date range. ALT 27 U/L 10/09/2023 38 7 AST 24 U/L 10/09/2023 35 13 TBILI 0.3 mg/dL 10/09/2023 1.3 0.2 TSH 0.332 mIU/L 10/26/2023 4.200 0.270 EKG 11/01/23 Sinus rhythm Normal ECG Echo 05/27/20 - Technically difficult exam due to body habitus. - Exam indication: Pulmonary Sarcoidosis - The left ventricle is normal in size. Left ventricular systolic function is normal. EF = 58 5% (2D biplane) Normal left ventricular diastolic function. GLS is normal at -17.7% - The right ventricle is normal in size. Right ventricular systolic function is normal. - Exam was compared with the prior echocardiographic exam performed on 03/25/2019. There is no significant change. CXR 11/01/23 Lines, tubes, and devices: Corpak feeding tube loops in the gastric fundus with tip projecting at the gastric antrum or duodenal bulb, similar to prior. Lungs and pleura: No focal consolidation, pleural effusion, or pneumothorax. Cardiomediastinal silhouette: Stable size and configuration. Bones and soft tissues: No acute osseous abnormality is identified. Nonobstructive bowel gas pattern. CT Chest 10/26/23 Interval continued improvement of groundglass and consolidative opacities in the lower lobes, and right middle lobe, compatible with improved inflammatory/infectious process. No significant change of upper lung predominant perilymphatic/peribronchovascula r nodules bilaterally and mild thoracic lymphadenopathy with history of sarcoidosis. Additional a few scattered pulmonary nodules are also stable. No new suspicious lung nodule identified. Spirometry 07/20/23 Spirometry is normal. The diffusing capacity corrected for hemoglobin is normal. Assessment/Plan HTN (hypertension) Assessment: managed with med, stable Follows up with PCP Pulmonary sarcoidosis (HCC) Assessment: Follows up with pulmonology, last office visit 10/18/23 Managed with inhaler, stable Denies SOB Asthma Assessment: Follows up with pulmonology, last office visit 10/18/23 Managed with inhaler Denies SOB Gastroparesis Assessment: see HPI GERD (gastroesophageal reflux disease) Assessment: managed with med, stable Follows up with PCP Hypothyroidism Assessment: managed with med, stable Follows with endo, last office visit 10/19/23 Microcytic anemia Assessment: stable and asymptomatic Follows with hematology Hemoglobin (g/dL) Date Value 11/01/2023 11.4 03/04/2021 13.0 Hematocrit (%) Date Value 11/01/2023 34.8 03/04/2021 39.1 WBC (k/uL) Date Value 11/01/2023 6.59 03/04/2021 5.85 On home O2 Assessment: 1L PRN Rarely needs METS: Climb a flight of stairs or walk up a hill (5.50 METs) Patient denies any chest pain or undue shortness of breath with the above physical activity. ANESTHESIA FINDINGS: Intubation History: No history of difficult intubation Significant Anesthesia Considerations: None Final Airway Details 08/08/23 Final airway type: endotracheal airway Final Endotracheal Airway: ETT Cuffed: yes Successful intubation technique: video laryngoscopy Devices used: Tracey Endotracheal tube insertion site: oral Blade size: #3 ETT size (mm): 5.0 Measured from: lips Measurement (cm): 21 Placement verified by: capnometry Cormack-Lehane Classification: grade I - full view of glottis Number of attempts at approach: 1 Airway not difficult Airway Exam: General: Normal appearance Mallampati Score is CLASS II ULBT: Class I - Lower incisors can bite the upper lip above the adelso line Neck: Normal appearance and function, Distance from hyoid to mentum during neck extension is at least 3 finger breaths Mouth: Normal tongue size and Mouth opening greater than 2 finger breaths Dentition: Intact Airway History: No abnormal airway history PLAN This patient is optimally prepared for surgery pending LABS. CONSULTS: Patient does not require consults for optimization at this time. The Following Tests/Procedures Have Been Initiated: Labs not indicated per [facility] protocol, EKG not indicated per [facility] protocol Planned Anesthetic: Per anesthesia choice Instructions Given to Patient: Instructions located in the after visit summary. Patient given verbal and written preop instructions and voices comprehension and compliance. SIGNATURE: Carrie Whitaker APRN.CNP PATIENT NAME: Zack Snow DATE: 11/08/2023 TIME: 2:23 PM [facility] [facility] and physical note HISTORY AND PHYSICAL EXAMINATION SERVICE DATE: 11/08/2023 SERVICE TIME: 2:22 PM PRIMARY CARE PHYSICIAN: John Mendes Sr, DO REASON FOR VISIT: Zack Snow is a 63 year old female who is scheduled for ENDOSCOPIC PER-ORAL PYLOROMYOTOMY at the request of Dr. Leonard Mckeon for consultation. My final recommendation will be communicated back to the requesting physician by way of shared medical record or letter. The patient has the following: ACTIVE PROBLEM LIST Htn (Hypertension) Adjustment Disorder With Anxiety Papillary Thyroid Carcinoma (Hcc) Gerd (Gastroesophageal Reflux Disease) Pericardial Effusion (Noninflammatory) Pulmonary Sarcoidosis (Hcc) Vocal Cord Paralysis Asthma Hypothyroidism Gastroparesis Severe Protein-Calorie Malnutrition (Hcc) Microcytic Anemia Vitamin D Deficiency Feeding Tube Dysfunction, Initial Encounter Malnutrition of Moderate Degree (Hcc) On Home O2 Subjective CHIEF COMPLAINT: Pre-op exam HPI: This is a 63 year old female that is scheduled for the above procedure. Patient has a history of gastroparesis. Currently has a continuous feeding tube, denies any difficulty with tube feeding. She denies any pain at this time. Denies N/V. PAST MEDICAL HISTORY Diagnosis Date Adjustment disorder with anxiety Asthma COPD (chronic obstructive pulmonary disease) (HCC) HTN (hypertension) Papillary thyroid carcinoma (HCC) PAST SURGICAL HISTORY Procedure Laterality Date CATARACT EXTRACTION HX LAPAROSCOPY SURG CHOLECYSTECTOMY REMOVAL OF KIDNEY STONE THYROIDECTOMY TOTAL/COMPLETE FAMILY HISTORY Problem Relation Age of Onset Heart Attack Father 66 Cancer Other SOCIAL HISTORY: Social History Tobacco Use Smoking status: Never Passive exposure: Past Smokeless tobacco: Never Vaping Use Vaping Use: Never used Substance Use Topics Alcohol use: Yes Comment: Beer every once in a while Drug use: No MEDICATIONS: Prior to Admission medications as of 11/08/23 1428 Medication Sig Last Dose Taking ondansetron (ZOFRAN) 4 mg tablet Take 1 tablet by mouth every 8 hours as needed for nausea/vomiting (for nausea.). Taking Yes levothyroxine (EUTHYROX) 112 mcg tablet Take 1 tablet by mouth daily before breakfast. Taking Yes budesonide (PULMICORT) 0.5 mg/2 mL nebulizer solution Use 2 mL via nebulizer two times a day. Taking Yes metoclopramide HCl (REGLAN) 5 mg tablet Take 1 tablet by mouth four times daily. Taking Yes azelastine 0.1% nasal spray Use 2 Sprays in each nostril two times a day as needed. Taking Yes triamcinolone acetonide (NASACORT) 55 mcg nasal inhaler Use 2 Sprays in the nose once daily. Taking Yes cetirizine (ZYRTEC) 5 mg tablet Take 1 tablet by mouth two times a day as needed for cold/allergy symptoms. Taking Yes nutritional supplement (NUTREN 2.0) 0.08 G - 2 Kcal/mL oral liquid Infuse 4 cartons of Nutren 2.0 through [employer] Pump at 85 ml/hr for 12 hours. Flush 60 ml 6 times per day Taking Yes acetaminophen (TYLENOL) 325 mg tablet Take 2 tablets by mouth every 6 hours as needed for pain. Taking Yes nutritional supplements (NUTREN 1.5) 0.07 gram-1.5 kcal/mL liqd Enteral/Tube Feedings: Nutren 1.5 or equivalent formula Goal Rate (mL/hr x hours): 50 ml/hr x 22 hours (1100 ml total volume provides 1650 kcals, 74 g protein, 840 ml free water) Water Flush Volume (mL x frequency: at least 30 ml 6x/day for tube patency; up to 135 ml 6x/day for goal hydration Taking Yes senna (SENOKOT) 8.6 mg tab Take 1-2 tablets by mouth two times a day. Taking Yes esomeprazole magnesium (NEXIUM) 40 mg packet Take 40 mg by mouth daily before breakfast. Taking Yes albuterol (PROVENTIL) 2.5 mg /3 mL (0.083 %) nebulizer solution Use 3 mL via nebulizer every 4 hours as needed for wheezing/shortness of breath. Taking Yes estradiol (CLIMARA) 0.1 mg/24 hr Apply 1 Patch as directed one time a week. Taking Yes montelukast (SINGULAIR) 10 mg tablet Take 1 tablet by mouth daily at bedtime. Taking Yes albuterol HFA (PROAIR HFA) 90 mcg/actuation inhaler 1-2 Puffs every 6 hours as needed for wheezing/shortness of breath. Taking Yes amLODIPine (NORVASC) 2.5 mg tablet Take 2.5 mg by mouth once daily. Taking Yes ergocalciferol 50,000 unit capsule (VITAMIN D2, DRISDOL) Take 1 capsule by mouth one time a week. Patient not taking: Reported on 10/18/2023 guaiFENesin (ROBITUSSIN) 100 mg/5 mL syrup Take 20 mL by mouth every 4 hours as needed for cough. melatonin 3 mg tablet Take 1 tablet by mouth at bedtime as needed for insomnia. polyethylene glycol 3350 17 gram packet Take 1 Packet by mouth once daily. Dissolve dose in 4 - 8 ounces of liquid and take as directed. psyllium (METAMUCIL) 3.4 gram packet Take 1 Packet by mouth two times a day. triamcinolone (KENALOG) 0.025 % cream Apply to affected area two times a day. fluoride, sodium, (DENTA-GEL) 1.1 % gel 1 application by DENTAL route daily at bedtime. Nebulizer Accessories kit Please supply her with the nebulizer kit to product safety technician to her machine No medication comments found. CURRENT ALLERGIES: ALLERGIES Allergen Reactions Mold Other: See Comments Cough, sneezing, congestion Strawberry Unknown OAK TREE ALLERGY REVEALED FROM ALLERGY TESTING Sulfa (Sulfonamide * GI Upset Covid Immunization Dates Covid-19 Vaccine (Series Information) Completed 04/06/2023 Imm Admin: COVID-19 vaccine, age 12+ yr, 2022- season (MODERNA) 08/26/2021 Imm Admin: COVID-19 original vaccine, age 12+ yr, monovalent ([employer] - AMBROSE TOP) 11/11/2020 Imm Admin: COVID-19 original vaccine, age 12+ yr, monovalent ([employer] - PURPLE TOP) 10/20/2020 Imm Admin: COVID-19 original vaccine, age 12+ yr, monovalent ([employer] - PURPLE TOP) REVIEW OF SYSTEMS: PAIN ASSESSMENT: General: No weight loss, malaise or fevers. 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 No neurological symptoms or problems. Respiratory: Positive for Asthma, Home O2 at 1 liters, pulmonary sarcoidosis, Negative for Current cough, Dyspnea Cardiovascular: Positive for: Hypertension, Negative for Arrhythmia, CAD, Chest Pain, DVT/PE GI: See HPI : No history of dysuria, frequency or incontinence,, stones or chronic kidney disease, No difficulty urinating, nocturia > 1 time per night or hematuria Endocrine: Hypothyroidism Hematology: Anemia of chronic disease Oncology: No history of CA metastasis, chemo within 30 days, or radiotherapy within 90 days. Has not lost 10% of body wt in 6 months. No history of oncological symptoms or problems. Psych: Anxiety, Depression Musculoskeletal: Back pain Skin: Negative for lesions, rash and itching. Objective PHYSICAL EXAM: VITALS: BP 98/62 Pulse 76 Temp (Src) 97.7 (Temporal) Resp 16 Ht 5' 6 (1.68m) Wt 106 lb 14.8 oz (48.5kg) SpO2 93% BMI 17.27 kg/(m^2). General: Alert and oriented, No acute distress Skin: Normal color, no rash, no lesions. HEENT: EOM, pupils equal, round and reactive. Cardiovascular: Normal S1 & S2, no rubs, murmurs or gallops. No JVD. Pulse regular. Lungs: Normal breath sounds, no wheezes or crackles. Abdomen: Soft, non-tender, no rigidity., No masses or organomegaly. Extremities: No deformity, no edema or tenderness, no joint swelling or clubbing. Neurological: Normal cognition and motor skills. Gait normal. No weakness or sensory deficit. Pulses: Carotid and radial pulses normal +2. Diagnostic tests reviewed for today's visit: Lab Value Units Date High Low HB 11.4 g/dL 11/01/2023 15.5 11.5 HCT 34.8 % 11/01/2023 46.0 36.0 WBC 6.59 k/uL 11/01/2023 11.00 3.70 PLT 238 k/uL 11/01/2023 400 150 NA 140 mmol/L 11/01/2023 144 136 K 3.5 mmol/L 11/01/2023 5.1 3.7 GLUC 77 mg/dL 11/01/2023 99 74 BUN 33 mg/dL 11/01/2023 21 7 CREAT 1.04 mg/dL 11/01/2023 0.96 0.58 PTSEC 11.4 sec 09/19/2023 13.0 9.7 INR 1.1 no uni* 09/19/2023 1.3 0.9 APTT No results within date range. ALT 27 U/L 10/09/2023 38 7 AST 24 U/L 10/09/2023 35 13 TBILI 0.3 mg/dL 10/09/2023 1.3 0.2 TSH 0.332 mIU/L 10/26/2023 4.200 0.270 EKG 11/01/23 Sinus rhythm Normal ECG Echo 05/27/20 - Technically difficult exam due to body habitus. - Exam indication: Pulmonary Sarcoidosis - The left ventricle is normal in size. Left ventricular systolic function is normal. EF = 58 5% (2D biplane) Normal left ventricular diastolic function. GLS is normal at -17.7% - The right ventricle is normal in size. Right ventricular systolic function is normal. - Exam was compared with the prior echocardiographic exam performed on 03/25/2019. There is no significant change. CXR 11/01/23 Lines, tubes, and devices: Corpak feeding tube loops in the gastric fundus with tip projecting at the gastric antrum or duodenal bulb, similar to prior. Lungs and pleura: No focal consolidation, pleural effusion, or pneumothorax. Cardiomediastinal silhouette: Stable size and configuration. Bones and soft tissues: No acute osseous abnormality is identified. Nonobstructive bowel gas pattern. CT Chest 10/26/23 Interval continued improvement of groundglass and consolidative opacities in the lower lobes, and right middle lobe, compatible with improved inflammatory/infectious process. No significant change of upper lung predominant perilymphatic/peribronchovascula r nodules bilaterally and mild thoracic lymphadenopathy with history of sarcoidosis. Additional a few scattered pulmonary nodules are also stable. No new suspicious lung nodule identified. Spirometry 07/20/23 Spirometry is normal. The diffusing capacity corrected for hemoglobin is normal. Assessment/Plan HTN (hypertension) Assessment: managed with med, stable Follows up with PCP Pulmonary sarcoidosis (HCC) Assessment: Follows up with pulmonology, last office visit 10/18/23 Managed with inhaler, stable Denies SOB Asthma Assessment: Follows up with pulmonology, last office visit 10/18/23 Managed with inhaler Denies SOB Gastroparesis Assessment: see HPI GERD (gastroesophageal reflux disease) Assessment: managed with med, stable Follows up with PCP Hypothyroidism Assessment: managed with med, stable Follows with endo, last office visit 10/19/23 Microcytic anemia Assessment: stable and asymptomatic Follows with hematology Hemoglobin (g/dL) Date Value 11/01/2023 11.4 03/04/2021 13.0 Hematocrit (%) Date Value 11/01/2023 34.8 03/04/2021 39.1 WBC (k/uL) Date Value 11/01/2023 6.59 03/04/2021 5.85 On home O2 Assessment: 1L PRN Rarely needs METS: Climb a flight of stairs or walk up a hill (5.50 METs) Patient denies any chest pain or undue shortness of breath with the above physical activity. ANESTHESIA FINDINGS: Intubation History: No history of difficult intubation Significant Anesthesia Considerations: None Final Airway Details 08/08/23 Final airway type: endotracheal airway Final Endotracheal Airway: ETT Cuffed: yes Successful intubation technique: video laryngoscopy Devices used: [employer] Endotracheal tube insertion site: oral Blade size: #3 ETT size (mm): 5.0 Measured from: lips Measurement (cm): 21 Placement verified by: capnometry Cormack-Lehane Classification: grade I - full view of glottis Number of attempts at approach: 1 Airway not difficult Airway Exam: General: Normal appearance Mallampati Score is CLASS II ULBT: Class I - Lower incisors can bite the upper lip above the adelso line Neck: Normal appearance and function, Distance from hyoid to mentum during neck extension is at least 3 finger breaths Mouth: Normal tongue size and Mouth opening greater than 2 finger breaths Dentition: Intact Airway History: No abnormal airway history PLAN This patient is optimally prepared for surgery pending LABS. CONSULTS: Patient does not require consults for optimization at this time. The Following Tests/Procedures Have Been Initiated: Labs not indicated per [facility] protocol, EKG not indicated per [facility] protocol Planned Anesthetic: Per anesthesia choice Instructions Given to Patient: Instructions located in the after visit summary. Patient given verbal and written preop instructions and voices comprehension and compliance. SIGNATURE: Carrie Whitaker APRN.CNP PATIENT NAME: Zack Snow DATE: 11/08/2023 TIME: 2:23 PM documented in this encounter [facility] 11-07-2023 Instructions Carrie Whitaker APRN.CNP - 11/07/2023 8:22 AM EDT PATIENT PREOPERATIVE INSTRUCTIONS Leonard Mckeon MD, PhD has scheduled you for your procedure at this surgery center: [facility] [place] [facility] Scheduling Office: [phone] --[address] [place] [address]. Please read below carefully for your personalized instructions. Dietary Restrictions: - Nothing to eat or drink after midnight except a sip of water with approved medications - Tube feeding needs to be turned off at midnight Pre-Surgery Med Instructions Medication Instructions ondansetron (ZOFRAN) 4 mg tablet As needed levothyroxine (EUTHYROX) 112 mcg tablet Take the day of surgery with a small sip of water budesonide (PULMICORT) 0.5 mg/2 mL nebulizer solution Use day of surgery metoclopramide HCl (REGLAN) 5 mg tablet As needed azelastine 0.1% nasal spray triamcinolone acetonide (NASACORT) 55 mcg nasal inhaler Use day of surgery cetirizine (ZYRTEC) 5 mg tablet Take the day of surgery with a small sip of water nutritional supplement (NUTREN 2.0) 0.08 G - 2 Kcal/mL oral liquid Do not take the day of surgery acetaminophen (TYLENOL) 325 mg tablet As needed nutritional supplements (NUTREN 1.5) 0.07 gram-1.5 kcal/mL liqd Do not take the day of surgery senna (SENOKOT) 8.6 mg tab Do not take the day of surgery esomeprazole magnesium (NEXIUM) 40 mg packet Take the day of surgery with a small sip of water albuterol (PROVENTIL) 2.5 mg /3 mL (0.083 %) nebulizer solution As needed estradiol (CLIMARA) 0.1 mg/24 hr montelukast (SINGULAIR) 10 mg tablet Take the day of surgery with a small sip of water albuterol HFA (PROAIR HFA) 90 mcg/actuation inhaler As needed amLODIPine (NORVASC) 2.5 mg tablet Take the day of surgery with a small sip of water If you start any new medications after today's visit, please contact the surgeon's office. Blood Thinning Medications: - Stop NSAIDS (Ibuprofen, Advil, Aleve, Motrin, Celebrex, Mobic, etc.) 7 days before surgery, as directed by your surgeon. - Stop Vitamin E, ALL multi-vitamins, herbals and dietary supplements 7 days before surgery. - You may take Tylenol (Acetaminophen) or any of your pain medications that do not contain aspirin or NSAIDS as needed. Important Reminders: - Candy, mints, and tobacco products are NOT permitted the morning of surgery. - Hearing aids, dentures and glasses may be worn the morning of surgery. - NO jewelry, body piercings, makeup, hairpins or contacts are to be worn the day of surgery. If you develop symptoms such as a fever, cold, or flu, or have other changes to your health within TWO DAYS of scheduled surgery or the morning of surgery, please contact the surgery center above. Personal Belongings: -Please have photo ID and insurance cards. -If you do not have a copy of advance directives on file with us, please bring a copy with you on the day of surgery. - Leave ALL valuables and money at home or with family members. For Outpatient Procedures: - YOU MUST HAVE A RESPONSIBLE SENIOR LOAN PROCESSOR TAKE YOU HOME. A PATENT COUNSEL OR COMPRESSED GAS TESTER CANNOT BE MADE A RESPONSIBLE SENIOR LOAN PROCESSOR. - We recommend that a responsible person stays with you overnight to take care of you. - You cannot stay in a hotel alone after outpatient surgery. You will not be permitted to have your surgery, if you do not have someone to take care of you. Arrival Time for Surgery: - To obtain your arrival time for surgery, call your physician's office the day before your surgery. - If your surgery is scheduled for Monday, call the Monday before. Your surgeon s shank threader will tell you what time to call the office. - If you have not reached the departmental shank threader by 5 P.M., call [phone] after 5 P.M. the day before your surgery. Please be aware that emergency situations arise, which may delay or change your surgical time. If this happens, we will notify you as soon as possible and regret any inconvenience. If you already have an Advance Directive, please fax a copy to [phone] or email to for it to be added to your chart. If you do not have an Advance Directive, you can find the appropriate form and more information at [email or web address]. We recommend that you complete the Advance Directive form found on the website and bring it with you the day of your surgery. It can be witnessed and scanned into your chart that day. documented in this encounter [facility] 11-02-2023 Note [facility] 11-02-2023 History of Presen t illness Narrative [facility] SPECIALTY CARE COORDINATION TELEPHONE ENCOUNTER Staff message received from surgeon following his review of patient's GES. Instructed to schedule per surgeon. CC placed call to patient to offer surgical date for G-POEM. Patient agreeable to 11/13/2023 for surgery. Surgical request submitted. Education provided to patient by phone and by [facility]. Azalia RIVAS, RN DD/[facility] Surgical [place] Hy[employer]ulic Press Operator documented in this encounter [facility] 11-01-2023 Note [facility] 11-01-2023 History of Presen t illness Narrative Patient Name: Zack Snow : 1960 Referred For: chair massage Diagnosis: muscle soreness Chief Complaint: Pain Anxiety (pre): 4 Pain (pre): 6 Stress Level (pre): 4 Therapy Provided: Massage Therapy Area(s) Treated: back, thoracic focus Anxiety (post): 3 Pain (post): 5 Stress Level (post): 3 Visit Outcome: Better Comments: light belizean Treatment Plan: [facility] Care Team contacted: N/A Signature: Mark Mohr LMT Date: November 01, 2023 Time: 3:04 PM documented in this encounter [facility] 11-01-2023 Note [facility] 11-01-2023 Telephone encounter Note Notified by teams message from PSS that patient is in our clinic for a scheduled massage and asked if someone here can help unclog her feeding tube. Unfortunately, I do not know this patient and/or her case and tube feeding history. Recommended patient either contact home health nurse if she has one, provider who placed feeding tube, or present to local emergency room to have feeding tube evaluated. PSS to relay recommendations to patient. Staci Finch MS, KELLY, LD [facility] Work Phone: 11-01-2023 Miscellaneous Notes Notified by teams message from PSS that patient is in our clinic for a scheduled massage and asked if someone here can help unclog her feeding tube. Unfortunately, I do not know this patient and/or her case and tube feeding history. Recommended patient either contact home health nurse if she has one, provider who placed feeding tube, or present to local emergency room to have feeding tube evaluated. PSS to relay recommendations to patient. Staci Finch MS, KASSIDYN, LD documented in this encounter [facility] 11-01-2023 Telephone encounter Note Called pt and [place] tube clogged, pt had not yet seen return message. Does not feel like tube is coiled in back of throat, has not been pulled. PT said was given clog zapper by PA on 10/26 from [facility] Surg but not sure how to use so reviewed then do not try. Recommended pt go to local ED to see if they can help with tube, pt agreeable to that and then asked for update. Jeanine Lentz, RN [facility] Work Phone: 11-01-2023 Miscellaneous Notes Called pt and [place] tube clogged, pt had not yet seen return message. Does not feel like tube is coiled in back of throat, has not been pulled. PT said was given clog zapper by PA on 10/26 from [facility] Surg but not sure how to use so reviewed then do not try. Recommended pt go to local ED to see if they can help with tube, pt agreeable to that and then asked for update. Jeanine Lentz RN documented in this encounter [facility] 10-31-2023 Telephone encounter Note Called pt to resched her Audalt speech MBS, no answer,LVM [facility] 10-31-2023 Miscellaneous Notes Called pt to resched her Audalt speech MBS, no answer,LVM documented in this encounter [facility] 10-30-2023 Telephone encounter Note This patient gave consent to this Medical Advice Message and is aware that it may result in a bill to their insurance, as well as the possibility of receiving a bill for a copay and/or deductible. They are an established patient, but are not seeking information exclusively about a problem treated during an in person or video visit in the last seven days. I did not recommend an in person or video visit within seven days of my reply. See the MyChart message reply for my assessment and plan. I spent a total of 11 minutes reviewing the patient's prior medical records and current request for medical advice, prescribing medications or ordering tests (if applicable), replying to the patient, and documenting the encounter. [facility] 10-30-2023 Miscellaneous Notes This patient gave consent to this Medical Advice Message and is aware that it may result in a bill to their insurance, as well as the possibility of receiving a bill for a copay and/or deductible. They are an established patient, but are not seeking information exclusively about a problem treated during an in person or video visit in the last seven days. I did not recommend an in person or video visit within seven days of my reply. See the [employer] message reply for my assessment and plan. I spent a total of 11 minutes reviewing the patient's prior medical records and current request for medical advice, prescribing medications or ordering tests (if applicable), replying to the patient, and documenting the encounter. documented in this encounter [facility] 10-30-2023 History of Presen t illness Narrative RADIOLOGY SERVICE PROGRESS NOTE SERVICE DATE: 10/30/2023 SERVICE TIME: 9:09 AM PATIENT IDENTITY VERIFICATION COMPLETED USING TWO (2) STANDARD IDENTIFIERS: Name and Date of confirmed by patient verbally FALL SCREENING: Has the patient had 2 falls in the last year or 1 fall with injury or currently using an Ambulatory Assistive Device (Walker, Cane, Wheelchair, Crutches, etc.)? No PATIENT GENDER DATA: .female ALLERGIES: Reviewed and unchanged MEDICATIONS REVIEWED: Yes PATIENT RELEVANT IMPLANT DATA REVIEWED: Not Applicable PATIENT PRESENTS WITH AN IMPLANTABLE OR ATTACHED LANGUAGE TUTOR: No CREATININE: Creatinine Date Value Ref Range Status 10/09/2023 1.02 (H) 0.58 - 0.96 mg/dL Final 09/20/2023 0.83 0.58 - 0.96 mg/dL Final 09/20/2023 0.69 0.58 - 0.96 mg/dL Final Estimated Glomerular Filtration Rate Date Value Ref Range Status 10/09/2023 63 >=60 mL/min/1.73m Final Comment: Estimated Glomerular Filtration Rate (eGFR) is calculated using the 2020 CKD-EPI creatinine equation. This equation utilizes serum creatinine, sex, and age as parameters. The creatinine assay has traceable calibration to isotope dilution-mass spectrometry. Refer to KDIGO guidelines for clinical interpretation. In patients with unstable renal function, e.g. those with acute kidney injury, the eGFR may not accurately reflect actual GFR. eGFR- Date Value Ref Range Status 03/04/2021 >60 Final P.O.C.T. RESULTS: N/A October 30, [address] PERFORMED: No IV SITE: Ambulatory: Not applicable POST EXAM PIV STATUS: Not applicable PROCEDURE TYPE: NM GET: 1 mCi Tc99m SULFUR COLLOID was administered orally via 3 oz of water ADMINISTRATION TIME: 8:00 PATIENT DISCHARGED TO: Ambulatory patient, left NM department area. A Diagnostic radioactive procedure has taken place, with no further precautions necessary other than routine body substance precautions. More information regarding radiation safety can be found using this link: [email or web address] SIGNATURE: RT Marvin(R) PATIENT NAME: Zack Snow DATE: October 30, 2023 TIME: 9:09 AM PAGER/CONTACT #: documented in this encounter The [facility] 10-30-2023 Note [facility] 10-27-2023 Note [facility] 10-27-2023 History of Presen t illness Narrative HISTORY AND PHYSICAL EXAMINATION SERVICE DATE: 10/27/2023 SERVICE TIME: PRIMARY CARE PHYSICIAN: John Mendes Sr, DO Subjective CHIEF COMPLAINT: gastroparesis HPI: This is a 63 year old female who presents to out patient clinic for concerns of anxiety of GES obtained this am which she reports that wasn't completed due to not consuming food quickly. dissection and radiation who presents with signs and symptoms related to gastroparesis. She states she has had reflux, nausea and episodes of emesis for as long back as 2005. She had been treated for acid reflux without full resolution of symptoms. After her cancer diagnosis and treatment in 2019 her symptoms began to worsen. She has been receiving corpak tube feeds. Initially she had corpak which looped in her stomach and she began to not tolerated feeds. She had the corpak replaced and she began tolerating her feeds. She has not had a gastric emptying study yet. FUNCTIONAL STATUS: PAST MEDICAL HISTORY Diagnosis Date Adjustment disorder with anxiety Asthma COPD (chronic obstructive pulmonary disease) (HCC) HTN (hypertension) Papillary thyroid carcinoma (HCC) PAST SURGICAL HISTORY Procedure Laterality Date CATARACT EXTRACTION HX LAPAROSCOPY SURG CHOLECYSTECTOMY REMOVAL OF KIDNEY STONE THYROIDECTOMY TOTAL/COMPLETE FAMILY HISTORY Problem Relation Age of Onset Heart Attack Father 66 Cancer Other Social History Tobacco Use Smoking status: Never Passive exposure: Past Smokeless tobacco: Never Vaping Use Vaping Use: Never used Substance Use Topics Alcohol use: Yes Comment: Beer every once in a while Drug use: No (Not in a hospital admission) ALLERGIES Allergen Reactions Mold Other: See Comments Cough, sneezing, congestion Strawberry Unknown OAK TREE ALLERGY REVEALED FROM ALLERGY TESTING Sulfa (Sulfonamide * GI Upset COMPLETE REVIEW OF SYSTEMS: General alert and orinted times 3 Objective PHYSICAL EXAM: Physical Exam Performed: BP 161/90 Pulse 105 Ht 5' 5.748 (1.67m) Wt 107 lb 8 oz (48.8kg) BMI 17.48 kg/(m^2). DATA: Diagnostic tests reviewed for today's visit: GES Assessment/Plan 1) Charles jahaira bridal adjusted 2) spoke to nuclear medicine regarding GES unable to consume solids in required time will order liquid gastric emptying will be scheduled this Monday at 715 3) continue to follow with nutrition 4) clog zapper provided to patient for clogging of core jahaira SIGNATURE: Ganesh Richardson PA-C PATIENT NAME: Zack Snow DATE: October 27, 2023 TIME: 9:51 AM documented in this encounter [facility] 10-27-2023 Note [facility] 10-27-2023 History of Presen t illness Narrative RADIOLOGY SERVICE PROGRESS NOTE SERVICE DATE: 10/27/2023 SERVICE TIME: 7:48 AM PATIENT IDENTITY VERIFICATION COMPLETED USING TWO (2) STANDARD IDENTIFIERS: Name and Date of confirmed by patient verbally FALL SCREENING: Has the patient had 2 falls in the last year or 1 fall with injury or currently using an Ambulatory Assistive Device (Walker, Cane, Wheelchair, Crutches, etc.)? Yes, Patient High Risk for Falls What interventions were put in place to prevent falls during this visit? [place] Risk Wristband Applied, Instructed Patient to Call for Help if Needed, and Increased Observations by Caregivers PATIENT GENDER DATA: .female : No ALLERGIES: Reviewed and unchanged MEDICATIONS REVIEWED: Not applicable PATIENT RELEVANT IMPLANT DATA REVIEWED: Not Applicable PATIENT PRESENTS WITH AN IMPLANTABLE OR ATTACHED LANGUAGE TUTOR: No CREATININE: Creatinine Date Value Ref Range Status 10/09/2023 1.02 (H) 0.58 - 0.96 mg/dL Final 09/20/2023 0.83 0.58 - 0.96 mg/dL Final 09/20/2023 0.69 0.58 - 0.96 mg/dL Final Estimated Glomerular Filtration Rate Date Value Ref Range Status 10/09/2023 63 >=60 mL/min/1.73m Final Comment: Estimated Glomerular Filtration Rate (eGFR) is calculated using the 2020 CKD-EPI creatinine equation. This equation utilizes serum creatinine, sex, and age as parameters. The creatinine assay has traceable calibration to isotope dilution-mass spectrometry. Refer to KDIGO guidelines for clinical interpretation. In patients with unstable renal function, e.g. those with acute kidney injury, the eGFR may not accurately reflect actual GFR. eGFR- Date Value Ref Range Status 03/04/2021 >60 Final P.O.C.T. RESULTS: N/A October 27, [address] PERFORMED: No IV SITE: AR only - not applicable, oral or physician administered agents given to patient POST EXAM PIV STATUS: Not applicable PROCEDURE TYPE: NM GET: 1.1 mCi Tc99m SULFUR COLLOID was administered orally via 4 ounces of egg beater, 1 piece of toast, 1 ounce of jelly and 8 ounces of water ADMINISTRATION TIME: 0745 PATIENT DISCHARGED TO: Ambulatory patient, left AR department area. A Diagnostic radioactive procedure has taken place, with no further precautions necessary other than routine body substance precautions. More information regarding radiation safety can be found using this link: [email or web address] SIGNATURE: RT Rosemary(R) PATIENT NAME: Zack Snow DATE: October 27, 2023 TIME: 7:48 AM PAGER/CONTACT #: [phone] RADIOLOGY SERVICE PROGRESS NOTE DATE OF SERVICE: October 27, 2023 TIME OF SERVICE: 0830 EVENT: PATIENT UNABLE TO EAT ANY OF MEAL, BECAME VERY AGITATED, COVERING EARS AND SLAMMING PURSE, PERSONAL CUP. RESCHEDULING TEST AFTER CONSULTING WITH ORDERING DOCTOR. ADDITIONAL EVENT DETAILS: PATIENT LEFT WITH TRANSPORT TO [facility] FOR LPC BY FRIEND. SIGNATURE: RT Rosemary(R) PATIENT NAME: Zack Snow DATE: October 27, 2023 TIME: 8:29 AM PAGER/CONTACT #: [phone] documented in this encounter [facility] 10-27-2023 Note [facility] 10-27-2023 Note [facility] 10-26-2023 Note [facility] 10-26-2023 History of Presen t illness Narrative SOCIAL WORK NOTE: [facility] Date of service: 10/26/2023 Patient is a 63 year old with a diagnosis of papillary thyroid gland. She is here today for a follow up with her provider who had paged this social media project manager to assess for needs. The patient has had lost weight being on a feeding tube and there are concerns about the patient's supports in the community. The patient was alone at this time and had voiced that there are times that she has trouble speaking. She spoke about her medical history and the concerns that she has about her ability to eat as tomorrow she is going through a whole day of tests. She is hoping to get answers as she would like to stop vomiting and be able to eat. Social work provided support. She continued by stating that her mother had a year ago and she has limited supports. Her main support is the grief support group and her scientology who has helped her with transportation. The patient stated that she was working at [employer] for over 20 years and has been on short term disability. She would ideally like to return back to work but does not feel that she is physically able. She has a phone interview with [employer] on 11/19 which she is hopeful to be approved. Social work asked about her mental health which she stated that she has been having a challenging time since her mother had passed and her other family has not been supportive. Social work spoke about different family dynamics and how to speak with family to ask for help. She appreciated the support. Social work to follow up as needed. F/U APPOINTMENT: PRN MARTELL King documented in this encounter [facility] 10-26-2023 Note [facility] 10-26-2023 History of Presen t illness Narrative Images from the original note were not included. [facility] Solid Tumor Oncology Follow Up Note Patient name: Zack Snow [facility] number: [id number] Primary Care Physician: Chloé Chavez MD Date of service: October 26, 2023 Primary Diagnosis: pT4a N1 PTC, TCV with hobnail features Current Therapy: Observation and surveillance. Prior Therapy: 1. 08/14/2018 - s/p total thyroidectomy, central neck dissection: 4.6 cm PTC in right lobe, present at inked margin, adherent to trachea focally, TCV with hobnail features. LVI+, non ETE, 2/2 LN+, without EDUIN. pT4a N1. 2. 09/20/2018 - I-131 156.8 mCi; post-treatment imaging with residual activity in the neck, no evidence for local or distant functional thyroid mets 3. 11/08/2018 - completed adjuvant RT Interval History: The patient returns to clinic in follow-up. She was last seen in clinic 8 months ago and has stable weight though had Corpak placed when hospitalized 09/15. She had extensive workup for throat and stomach issues, possibly gastroparesis (emptying study tomorrow). Reports not doing well at home, has a home nurse who visits once weekly. She was vomiting almost daily last week and lost 5#. Her TF formula was recently changed. Family has kept distance so she has virtually no one for social support. Allergies: ALLERGIES Allergen Reactions Mold Other: See Comments Cough, sneezing, congestion Strawberry Unknown OAK TREE ALLERGY REVEALED FROM ALLERGY TESTING Sulfa (Sulfonamide * GI Upset PHYSICAL EXAM: ECOG Performance Score: 1 General Appearance: Tired and thin-appearing female, NAD. Awake and alert. Skin: Warm, dry. Well healed anterior neck surgical scar. ENT: Oropharynx: MMM, nonerythematous, no lesions or exudates Neck: No thyromegaly or palpable masses Lymph: No palpable cervical or supraclavicular SUE Resp: Clear to bases bilaterally, no crackles or wheezes CVS: Distal pulses intact and equal. Musculoskeletal: No obvious bony or joint abnl, no LE edema or calf tenderness Neurologic: Oriented x 3, face symmetric. Gait normal, speech and thought process normal. Psych: mood appropriate Labs: None. Radiologic Imaging: Personally reviewed CT chest and neck - BONNIE neck. Stable infiltrates in lungs. Formal reports pending. Impression and Plan: The patient is a 63 year old female with pT4a N1 PTC with TCV and hobnail features, RAIR disease suspicious in lungs and biopsy-proven sarcoidosis who returns to clinic in follow-up. # PTC - reviewed imaging, overall stable findings. Will follow-up final reports. - repeat imaging in 6 months (CT neck and chest) - labs including TG (note not checked since 2018) - would favor biopsy prior to systemic therapy (locoregionally or distant), nothing amenable to biopsy at this point. Stable imaging demonstrating metastatic disease in lungs albeit low tumor burden and stable. - will need NGS; deferred at this point. # Social issues - applying for disability - mother decreased 10/2022; patient and mother lived together and were very close. Her GI sx started shortly after this. # Weight loss - stable but now on TF via Corpak - following with GI closely, gastric emptying test tomorrow. # Abdominal pain, nausea, vomiting - GI referral - ongoing weight loss, had recent barium GI series, results unknown - constipated, advised milk of mag, avoid fiber supplements currently - checking labs today including TSH and T4 # Thyroid suppression - repeat labs today, TSH 0.3 and recent change in dosing - seeing new Appliance Assembler in December - may not be able to be suppressed given the degree of GI sx she has been having Elements of this note, including HPI, ROS, Physical Exam, Assessment and Plan were copied and pasted from my prior encounter. Updates have been made where noted and reflect current exam and medical decision making from October 26, 2023 Natalia Torres MD Medical Decision Making: Problems: Moderate: 2+ stable chronic illnesses and New problem with uncertain prognosis Data: Unique test result(s) reviewed: 3+ Unique test(s) ordered: 3+ Risk: Low: Low risk from testing/treatment Medical Decision Making Level: 4 - Moderate documented in this encounter [facility] 10-26-2023 Nurse Note Additional intake questions: Has the patient had fever, nausea, vomiting, diarrhea, constipation, fatigue for > 1 week? Yes, nausea, vomiting, constipation (day of last BM two days ago), fatigue and Provider Notified Does the patient have a decreased appetite? No Does patient have any new or increased numbness or tingling of extremities? No Is patient interested in fertility information? No Does patient need any prescription refills? No Does patient have an advanced directive in place? Yes, copies are in Epic [facility] 10-26-2023 Nurse Note Additional intake questions: Has the patient had fever, nausea, vomiting, diarrhea, constipation, fatigue for > 1 week? Yes, nausea, vomiting, constipation (day of last BM two days ago), fatigue and Provider Notified Does the patient have a decreased appetite? No Does patient have any new or increased numbness or tingling of extremities? No Is patient interested in fertility information? No Does patient need any prescription refills? No Does patient have an advanced directive in place? Yes, copies are in Epic documented in this encounter [facility] 10-26-2023 Telephone encounter Note BMI SPECIALTY CARE COORDINATION TELEPHONE ENCOUNTER Type of procedure: work up for G-POEM with Dr. Mckeon in November of 2023. Home Care Submarine Advisory Team Watch Officer Bobbi [phone] called with concerns of patient weightloss, anxiety surrounding upcoming testing, inconsistencies with feeding. CC called patient to follow up. Patient information sent regarding GES via [employer]. VM left for patient. Awaiting returned call to review diet and follow up with patient for teaching. Azalia RIVAS RN DDSI/BMI Surgical Panama Hat Hydraulic Press Operator [facility] 10-26-2023 Miscellaneous Notes BMI SPECIALTY CARE COORDINATION TELEPHONE ENCOUNTER Type of procedure: work up for G-POEM with Dr. Mckeon in November of 2023. Home Care Submarine Advisory Team Watch Officer Bobbi [phone] called with concerns of patient weightloss, anxiety surrounding upcoming testing, inconsistencies with feeding. CC called patient to follow up. Patient information sent regarding GES via [employer]. VM left for patient. Awaiting returned call to review diet and follow up with patient for teaching. Azalia RIVAS RN DD/[facility] Surgical Panama Hat Hydraulic Press Operator documented in this encounter [facility] 10-26-2023 History of Presen t illness Narrative Radiology Service Progress Note DATE OF SERVICE: October 26, 2023 TIME: 9:34 AM PATIENT WEIGHT: 110 LBS PATIENT IDENTITY VERIFICATION COMPLETED USING TWO (2) STANDARD IDENTIFIERS: Name and Date of confirmed by patient verbally and Name and Date of confirmed by identification band. FALL SCREENING: Has the patient had 2 falls in the last year or 1 fall with injury or currently using an Ambulatory Assistive Device (Walker, Cane, Wheelchair, Crutches, etc.)? No PATIENT GENDER DATA: Female. status: : No status: NO. ALLERGIES: Reviewed and unchanged CONTRAST ALLERGY: No EXAM: CT -CONTRAST INDUCED NEPHROPATHY RISK FACTORS: Patient age > 60 years and Dehydration CREATININE: Creatinine Date Value Ref Range Status 10/09/2023 1.02 (H) 0.58 - 0.96 mg/dL Final 09/20/2023 0.83 0.58 - 0.96 mg/dL Final 09/20/2023 0.69 0.58 - 0.96 mg/dL Final Estimated Glomerular Filtration Rate Date Value Ref Range Status 10/09/2023 63 >=60 mL/min/1.73m Final Comment: Estimated Glomerular Filtration Rate (eGFR) is calculated using the 2020 CKD-EPI creatinine equation. This equation utilizes serum creatinine, sex, and age as parameters. The creatinine assay has traceable calibration to isotope dilution-mass spectrometry. Refer to KDIGO guidelines for clinical interpretation. In patients with unstable renal function, e.g. those with acute kidney injury, the eGFR may not accurately reflect actual GFR. eGFR- Date Value Ref Range Status 03/04/2021 >60 Final P.O.C.T. RESULTS: N/A October 26, 2023 TREATMENT: No Hydration needed. IV SITE: Ambulatory: A peripheral IV was started in the Left antecubital site with a Angio cath: 22 gauge. and A Saline lock was inserted per protocol IV SITE APPEARANCE: Clean,Dry and Intact SIGNATURE: Rosibel Kelly RN PATIENT NAME: Zack Snow DATE: October 26, 2023 TIME: 9:34 AM Radiology Service Progress Note PATIENT NAME: Zack Snow DATE OF SERVICE: October 26, 2023 TIME: 9:57 AM PATIENT IDENTITY VERIFICATION COMPLETED USING TWO (2) IDENTIFIERS: Name and Date of confirmed by patient verbally and Name and Date of confirmed by identification band. FALL SCREENING: Has the patient had 2 falls in the last year or 1 fall with injury or currently using an Ambulatory Assistive Device (Walker, Cane, Wheelchair, Crutches, etc.)? No PATIENT GENDER DATA: Female. status: : No status: NO. PATIENT RELEVANT IMPLANT DATA REVIEWED: Yes PATIENT PRESENTS WITH AN IMPLANTABLE OR ATTACHED LANGUAGE TUTOR: No RADIOLOGY DEPARTMENT: CT; Exam(s) Completed: Chest and Neck PERIPHERAL IV DATA: Site assessment: Clean,Dry and Intact, Site disposition Discontinued SIGNED BY: RT Gemini(R) October 26, 2023 9:57 AM documented in this encounter [facility] 10-26-2023 Note [facility] 10-26-2023 Note [facility] 10-19-2023 Note [facility] 10-19-2023 History of Presen t illness Narrative INITIAL H&P GENERAL SURGERY SERVICE Zack Snow [id number] CC: vomiting, nausea HPI: Ms. Snow is a 63 year old female with a h/o papillary thyroid cancer s/p thyroidectomy and neck dissection and radiation who presents with signs and symptoms related to gastroparesis. She states she has had reflux, nausea and episodes of emesis for as long back as 2005. She had been treated for acid reflux without full resolution of symptoms. After her cancer diagnosis and treatment in 2018 her symptoms began to worsen. She has been receiving corpak tube feeds. Initially she had corpak which looped in her stomach and she began to not tolerated feeds. She had the corpak replaced and she began tolerating her feeds. She has not had a gastric emptying study yet. Gastroparesis cardinal symptom index 1. Nausea: 2 2. Retchin 3. Vomitin 4. Stomach fullness: 1 5. Not able to finish a normal-sized meal: 5 6. Feeling excessively full after meals: 5 7. Loss of appetite: 3 8. Bloating (feeling like you need to loosen your clothes): 0 9. Stomach or belly visibly larger: 0 Scale (0-none; 1-very mild; 2-mild; 3-moderate; 4-severe; 5-very severe) Medications reviewed an updated in the chart PAST MEDICAL HISTORY Diagnosis Date Adjustment disorder with anxiety Asthma COPD (chronic obstructive pulmonary disease) (HCC) HTN (hypertension) Papillary thyroid carcinoma (HCC) PAST SURGICAL HISTORY Procedure Laterality Date CATARACT EXTRACTION HX LAPAROSCOPY SURG CHOLECYSTECTOMY REMOVAL OF KIDNEY STONE THYROIDECTOMY TOTAL/COMPLETE FAMILY HISTORY Problem Relation Age of Onset Heart Attack Father 66 Cancer Other Social History Tobacco Use Smoking status: Never Passive exposure: Past Smokeless tobacco: Never Vaping Use Vaping Use: Never used Substance Use Topics Alcohol use: Yes Comment: Beer every once in a while Drug use: No I have confirmed and edited as necessary, the PFSH and ROS obtained by others. ROS: A 10 point review of systems was conducted, pertinent positives appear above in the HPI, all remaining are negative Objective: BP 128/80 Pulse 106 Ht 5' 5.984 (1.68m) Wt 110 lb 9.6 oz (50.2kg) BMI 17.86 kg/(m^2). PHYSICAL EXAM: General Appearance: Well appearing, alert, in no acute distress, has corpak in place Lungs: Lungs clear to auscultation. No wheezing, rhonchi, rales.. Heart: RRR without murmur, gallop, or rubs. No ectopy. Abdomen: Normal abdominal exam, Abdomen soft, non-tender. Bowel sounds normal. No masses, organomegaly. Pertinent Labs and Imaging: EGD 09/18 Impression: - Bilious gastric fluid, suctioned out. - Corpak Feeding tube placement was successfully performed. Estimated Blood Loss: Estimated blood loss: none. Recommendation: - Return patient to hospital hatch for ongoing care. - Resume previous diet. - KUB to confirm post-pyloric placement, before using Corpak feeding tube. - Patient has a contact number available for emergencies. The signs and symptoms of potential delayed complications were discussed with the patient. Return to normal activities tomorrow. Written discharge instructions were provided to the patient. Assessment and Plan: Zack Snow is a 63 year old female with a PMH as noted above who presents with signs and symptoms c/w gastroparesis. She has not had a gastric emptying study yet so we will start with that. If her GES is positive for gastroparesis, she would be a good candidate for a gastric per oral endoscopic myotomy(GPOEM). Risk and benefits of the procedure were discussed and she elected to undergo the procedure if her GES comes back positive for gastroparesis. - Gastric emptying study - scheduled for GPOEM after gastric emptying study. - Consent signed in office today Patient seen with Attending Josefina Carpenter MD PGY-1 General Surgery Resident 10/19/2023 documented in this encounter [facility] 10-19-2023 Instructions Hanna Bell MD - 10/19/2023 11:47 AM EDT documented in this encounter [facility] 10-19-2023 Note [facility] 10-19-2023 History of Presen t illness Narrative [facility] Initial Clinic Visit Note Consulted by: Natalia Torres MD Chief Complaint: Papillary thyroid cancer HPI: Zack Snow is a 58 year old female who presents today for follow-up of thyroid cancer. In addition she also has a hx of HTN, pulmonary sarcoidosis, GERD, Vocal cord paralysis from thyroid cancer and treatment, anxiety She underwent a total thyroidectomy on 08/14/2018 (Dr. Samano). She initially saw Dr. Gaines prior to VALENTIN (referred to him by Dr. Samano) and reports she was never given follow up after. She also underwent adjuvant radiotherapy and has been following Hematology/Oncolgy since then for management of thyroid cancer. She has not seen Endocrinology since 2019. From piror documentation of Dr. Torres in 02/2022 office note: Prior Therapy: 1. 08/14/2018 - s/p total thyroidectomy, central neck dissection: 4.6 cm PTC in right lobe, present at inked margin, adherent to trachea focally, TCV with hobnail features. LVI+, non ETE, 2/2 LN+, without EDUIN. pT4a N1. 2. 09/20/2018 - I-131 156.8 mCi; post-treatment imaging with residual activity in the neck, no evidence for local or distant functional thyroid mets 3. 11/08/2018 - completed adjuvant RT Pathology: FINAL DIAGNOSIS 1. Right superior parathyroid, excision (A) - Parathyroid gland tissue. 2. Proximal recurrent nerve right side, excision (B) - Nerve; negative for neoplasm. 3. Distal recurrent nerve right side, excision (B) - Nerve; negative for neoplasm. 4. Tracheal shave, resection (D) - Fibrous tissue; negative for neoplasm. 5. Medial tracheal margin, excision (E) Focal atypical thyroid follicles with marked crushed artifact involving fibrous tissue. 6. Inferior tracheal margin, excision (F) - Fibroadipose tissue; negative for neoplasm. 7. Superior tracheal margin, excision (G) - Fibrous tissue; negative neoplasm. 8. Lateral tracheal margin, excision (H) - Fibroadipose tissue; negative for neoplasm. 9. Muscular esophagus and nerve, excision (I) - Fibroadipose tissue; negative for neoplasm. 10. 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 SYNOPTIC REPORT OF [facility] PATHOLOGIC FINDINGS TOTAL THYROID AND CENTRAL NECK DISSECTION: Procedure: Total thyroidectomy Tumor Focality: Unifocal Tumor Site: Right Lobe Tumor Size: Greatest Dimension: 4.6 cm Additional Dimension: 4.4 cm Additional Dimension: 2.5 cm Histologic Type: Papillary carcinoma, tall cell variant Margins: Margin(s) involved by carcinoma Site(s) of involvement: medial tracheal margin (E) Angioinvasion (Vascular Invasion): Not identified Lymphatic Invasion: Present Extrathyroidal Extension: Not identified Regional lymph nodes: Number of regional lymph nodes involved: 2 Level -pretracheal, paratracheal and prelaryngeal/Delphian, perithyroidal (central compartment dissection) Number of regional lymph nodes examined: 2 Level -pretracheal, paratracheal and prelaryngeal/Delphian, perithyroidal (central compartment dissection) Size of largest metastatic deposit: 0.4 cm Lymph Node, Extranodal Extension: Not identified Pathologic Stage Classification (pTNM, AJCC 8th ed) TNM Descriptors: Not applicable Primary Tumor (pT): pT4a: Gross extrathyroidal extension invading subcutaneous soft tissues, larynx, trachea, esophagus, or recurrent laryngeal nerve from a tumor of any size Regional Lymph Nodes (pN): pN1: Metastasis to regional nodes Distant Metastasis (pM): Not applicable/Not confirmed pathologically in this case On initial visit , 06/13/2023: She reports of weight loss- she was 204 lbs before diagnosis of thyroid cancer and when she was in the ER with diarrhea in Feb 2023 she was noted to be 99 lbs. Following this, she underwent Barium swallow done in [place] and was found to have ?gastroparesis, subsequently Nexium daily was recommended After Feb 2023, she joined back work, and noticed to have significant fatigue. Reports she always had fatigue and it has been a struggle to work. Endoscopy was done in [facility], no ulcers found She has difficulty swallowing due to which she is not taking adequate food Hoarseness of voice present since thyroid cancer Dx but worsening now On New , she was in the ER and was found to have aspiration pneumonia, was also told thyroid medication might be aggravating her stomach issues and probably needs to be adjusted She denies any tremors, palpitations, heat intolerance or sweating episodes She also reports trouble eating some foods- she eats no dairy, ?lactose intolerance, started taking lactose free milk few months ago, now better with frequency of bowel movements Denies any other autoimmune issues, apart from Sarcoidosis She is on Euthyrox 137 mcg daily, since surgery. No changes in dose. Taking appropriately She underwent imaging of her neck, with the most recent one done in 05/2022, with no evidence of recurrence Interval history: Her LT4 dose was changed from 137 mcg daily to 150 mcg daily on her initial visit with me (last visit) due to TSH not being at goal, but he reports she had symptoms of diarrhea and weight loss due to this, but as I remember she was having malabsorption issues and reported improvement in symptoms after making diet changes She was seen by ENT on 06/16/23 for symptoms of dysphagia due to vocal cord paralysis and was suggested balloon dilation of esophagus and cord surgery. She underwent that on 08/02/23 I sent a message to her after discussing with her GI, if he would prefer dose reduction but she has not responded She is currently on 112 mcg daily, since hospitalization 09/16/23 for gastroparesis and asthma attack. She reports her weight is improved on the new dose. PAST MEDICAL HISTORY: PAST MEDICAL HISTORY Diagnosis Date Adjustment disorder with anxiety Asthma COPD (chronic obstructive pulmonary disease) (HCC) HTN (hypertension) Papillary thyroid carcinoma (HCC) PAST SURGICAL HISTORY: PAST SURGICAL HISTORY Procedure Laterality Date CATARACT EXTRACTION HX LAPAROSCOPY SURG CHOLECYSTECTOMY REMOVAL OF KIDNEY STONE THYROIDECTOMY TOTAL/COMPLETE FAMILY HISTORY: FAMILY HISTORY Problem Relation Age of Onset Heart Attack Father 66 Cancer Other SOCIAL HISTORY: Social History Tobacco Use Smoking status: Never Passive exposure: Past Smokeless tobacco: Never Vaping Use Vaping Use: Never used Substance Use Topics Alcohol use: Yes Comment: Beer every once in a while Drug use: No MEDICATIONS: Current Outpatient Medications Medication Sig budesonide (PULMICORT) 0.5 mg/2 mL nebulizer solution Use 2 mL via nebulizer two times a day. metoclopramide HCl (REGLAN) 5 mg tablet Take 1 tablet by mouth four times daily. azelastine 0.1% nasal spray Use 2 Sprays in each nostril two times a day as needed. triamcinolone acetonide (NASACORT) 55 mcg nasal inhaler Use 2 Sprays in the nose once daily. cetirizine (ZYRTEC) 5 mg tablet Take 1 tablet by mouth two times a day as needed for cold/allergy symptoms. nutritional supplement (NUTREN 2.0) 0.08 G - 2 Kcal/mL oral liquid Infuse 4 cartons of Nutren 2.0 through [employer] Pump at 85 ml/hr for 12 hours. Flush 60 ml 6 times per day acetaminophen (TYLENOL) 325 mg tablet Take 2 tablets by mouth every 6 hours as needed for pain. nutritional supplements (NUTREN 1.5) 0.07 gram-1.5 kcal/mL liqd Enteral/Tube Feedings: Nutren 1.5 or equivalent formula Goal Rate (mL/hr x hours): 50 ml/hr x 22 hours (1100 ml total volume provides 1650 kcals, 74 g protein, 840 ml free water) Water Flush Volume (mL x frequency: at least 30 ml 6x/day for tube patency; up to 135 ml 6x/day for goal hydration guaiFENesin (ROBITUSSIN) 100 mg/5 mL syrup Take 20 mL by mouth every 4 hours as needed for cough. melatonin 3 mg tablet Take 1 tablet by mouth at bedtime as needed for insomnia. polyethylene glycol 3350 17 gram packet Take 1 Packet by mouth once daily. Dissolve dose in 4 - 8 ounces of liquid and take as directed. psyllium (METAMUCIL) 3.4 gram packet Take 1 Packet by mouth two times a day. senna (SENOKOT) 8.6 mg tab Take 1-2 tablets by mouth two times a day. triamcinolone (KENALOG) 0.025 % cream Apply to affected area two times a day. fluoride, sodium, (DENTA-GEL) 1.1 % gel 1 application by DENTAL route daily at bedtime. esomeprazole magnesium (NEXIUM) 40 mg packet Take 40 mg by mouth daily before breakfast. Nebulizer Accessories kit Please supply her with the nebulizer kit to product safety technician to her machine albuterol (PROVENTIL) 2.5 mg /3 mL (0.083 %) nebulizer solution Use 3 mL via nebulizer every 4 hours as needed for wheezing/shortness of breath. estradiol (CLIMARA) 0.1 mg/24 hr Apply 1 Patch as directed one time a week. levothyroxine (EUTHYROX) 150 mcg tablet Take 1 tablet by mouth daily before breakfast. (Patient taking differently: Take 112 mcg by mouth daily before breakfast.) montelukast (SINGULAIR) 10 mg tablet Take 1 tablet by mouth daily at bedtime. albuterol HFA (PROAIR HFA) 90 mcg/actuation inhaler 1-2 Puffs every 6 hours as needed for wheezing/shortness of breath. amLODIPine (NORVASC) 2.5 mg tablet Take 2.5 mg by mouth once daily. ergocalciferol 50,000 unit capsule (VITAMIN D2, DRISDOL) Take 1 capsule by mouth one time a week. (Patient not taking: Reported on 10/18/2023) No current facility-administered medications for this visit. ALLERGIES: ALLERGIES Allergen Reactions Mold Other: See Comments Cough, sneezing, congestion Strawberry Unknown OAK TREE ALLERGY REVEALED FROM ALLERGY TESTING Sulfa (Sulfonamide * GI Upset REVIEW OF SYSTEMS: Pertinent as per HPI PHYSICAL EXAM: BP 128/80 (BP Site: Right Arm, BP Position: Sitting, BP Cuff Size: Regular Adult) Pulse 106 Resp 22 Ht 167.6 cm (5' 6 ) Wt 50 kg (110 lb 3.2 oz) SpO2 99% BMI 17.79 kg/m Body mass index is 17.79 kg/m . General Appearance: Thin female, coughing through the examination, coughs with sputum production multiple times during the encounter, Skin: Skin color, texture, turgor normal, no suspicious rashes or lesions. Eyes: Anicteric sclera. Extraocular movements are intact. Neck: Supple, no adenopathy; thyroidectomy scar noted anteriorly in neck, no palpable LAD Lungs: unlabored breathing on room air Heart: RRR Abdomen: soft, non tender Extremities: no tremors of outstretched arms Musculoskeletal: No joint swelling, deformity, or tenderness. Neurologic: Gait normal. Reflexes normal and symmetric. Sensation grossly intact LAB: Component Latest Ref Rng & Units 11/18/2021 06/07/2022 03/01/2023 TG Antibody Screen <14.4 IU/mL 1.3 Thyroglobulin Ab, Serum <4.0 IU/mL <0.9 Thyroglobulin 1.6 - 59.9 ng/mL <0.2 (L) Thyroglobulin, Serum 1.6 - 50.0 ng/mL 0.1 (L) T4 5.5 - 10.2 ug/dL 8.6 T4 Uptake 0.91 - 1.19 0.96 FTI 5.3 - 10.8 ug/dL 9.0 TSH 0.270 - 4.200 mIU/L 0.016 (L) 0.040 (L) 2.630 Thyroglobulin Ab <14.4 IU/mL 1.3 Component Latest Ref Rng & Units 09/18/2018 09/20/2018 02/18/2019 05/17/2019 02/13/2020 06/07/2022 TG Antibody Screen <14.4 IU/mL 1.9 1.8 1.6 1.8 2.0 1.3 Thyroglobulin Ab, Serum <4.0 IU/mL <0.9 Thyroglobulin 1.6 - 59.9 ng/mL 0.6 (L) 5.9 <0.2 (L) <0.2 (L) <0.2 (L) <0.2 (L) Thyroglobulin, Serum 1.6 - 50.0 ng/mL 0.1 (L) Imagin06/07/2022: DATE OF EXAM: Jun 07 2022 12:56PM CT NECK SOFT TISSUE W IVCON / PROCEDURE REASON: Papillary thyroid carcinoma (HCC) * * * * Physician Interpretation * * * * EXAMINATION: CT NECK SOFT TISSUE W IVCON HISTORY: Papillary thyroid carcinoma (HCC) Technique: CT of the soft tissues of the neck with IV contrast. A series of contiguous helical scans were performed from the skull base to the aortic arch. M: [id number] Contrast: 100 mL Omnipaque [address] Dose-Length Product (DLP): 688 mGy*cm CT Dose Reduction Employed: Automated exposure control (AEC) COMPARISON: CT neck soft tissue dated 03/04/2021. RESULT: The upper neck is degraded by streaking artifact from dental amalgam. Postoperative change: Bilateral cataract surgery. Thyroidectomy. Central neck lymph node dissection. Suprahyoid Neck: Nasopharynx and oropharynx appear normal. Parapharyngeal tissue planes are preserved. Oral cavity and floor of mouth appear normal within constraints of artifact from dental amalgam. Parotid and submandibular spaces are normal. Collar Worker spaces appear normal. Infrahyoid Neck: Hypopharynx, larynx, and imaged infraglottic trachea appear normal. Imaged upper esophagus is unremarkable. Postsurgical changes related to total thyroidectomy without discrete residual tissue. Stable small focus of sclerosis at the right mandibular body most likely representing a bony island. Lymph Nodes: No cervical lymphadenopathy by size criteria. Partially imaged mediastinal lymph nodes which are better visualized on chest CT which will be reported separately. Carotid Space: No masses. Patent extracranial carotid systems and internal jugular veins bilaterally. Orbits, Face and Skull Base: Orbital soft tissue planes are preserved. Paranasal sinuses are clear apart from minimal sinusitis in the alveolar process of the right maxillary sinus. . Mastoid air cells and middle ear cavities are clear. . Otherwise no evidence of an osteolytic or osteoblastic process in the skull base. Imaged intracranial contents: No enhancement, no mass effect, and no hydrocephalus. Cervical spine and remaining osseous structures: Alignment is normal. Statement 2 small foci of sclerosis in the C5 and T3 vertebral body, most likely representing bony islands. Mild spondylotic changes in the visualized spine. Lung apices: Reported separately. Other: Not applicable. CT chest w IV contrast: 06/07/2022 IMPRESSION: 1. Overall, compared to 11/18/2021 exam, there has been continued increase in subtle micronodules/perilymphatic nodules in the posterior right upper lobe and superior right lower lobe distributions, most likely related to sarcoidosis. 2. Stable appearing right lower lobe nodule noted at this time. 3. Redemonstration of intrathoracic lymphadenopathy related to sarcoidosis. Patulous esophagus redemonstrated. CT chest w IV contrast : 03/01/2023 IMPRESSION: 1. Again the findings are compatible with pulmonary sarcoidosis with no change compared to the recent prior examinations. No new suspicious lung nodules have developed. 2. Stable borderline enlarged bilateral hilar and mediastinal lymph nodes in keeping with history of sarcoidosis. NM THY CA WB: 10/01/2018 PROCEDURE REASON: Thyroid cancer (HCC) [C73], * * * * Physician Interpretation * * * * * * * * * * * * ORIGINAL REPORT * * * * * * * * WHOLE BODY I-131 SCAN: HISTORY: Thyroid cancer. Status post thyroidectomy and I-131 treatment. TECHNIQUE: 156.8 mCi I-131 sodium iodide PO on 09/20/2017. Whole body imaging was performed 12 days later. SPECT imaging of neck and chest was performed; anatomic mapping noncontrast CT imaging of the same body region was performed using 1 bed (39cm). CT Dose-Length Product (DLP): 136 mGy*cm. CT Dose Reduction Employed: Yes RESULT: Focal uptake is present in the anterior neck just left of midline. Coregistration of SPECT with CT images demonstrate that this activity is associated with pretracheal soft tissues anterior to the thyroid cartilage, compatible with radioiodine avid thyroglossal duct (fused image #26). No areas of abnormal uptake of I-131 activity are seen to suggest the presence of either local involvement or distant functional thyroid metastases. Physiologic tracer activity is noted associated with the dental amalgam, major salivary glands, and GI tract. No areas of abnormal uptake of I-131 activity are seen to suggest the presence of either local involvement or distant functional thyroid metastases. IMPRESSION: Residual I-131 activity in the neck, compatible with thyroglossal duct.No evidence for either local involvement or distant functional thyroid metastases. * * * * * * * * ADDENDUM #1 * * * * * * * * ADDENDUM: There was an error in the reported date in the technique portion of the original report. The correct version of pertechnetate is as follows: TECHNIQUE: 156.8 mCi I-131 sodium iodide PO on 09/20/2018. Whole body imaging was performed 11 days later. 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 PLAN: 1. Papillary thyroid carcinoma (HCC) 2. Post surgical hypothyroidism She had total thyroidectomy, VALENTIN and adjuvant radiotherapy CT scan chest and neck demonstrating suspicious for refractory disease although report say consistent with sarcoidosis. Also stable TG ab noted over the last few years while TG is <0.2 ng/ml - This might be considered indeterminate response - she is currently on 112 mcg daily of levothyroxine again might be less dose than needed, but patient is possibly not tolerating the medication well. - Claims she is disease free and does not want me to check any imaging studies and that she would like her Oncologist to continue to monitor - she also has an appt with Dr. Ramírez, Appliance [employer] in [place] in 12/2023 - I gave her the refills for LT4 as requested - repeat labs ordered by me for TSH, TG and TG ab Follow up in 6 months, if continues to follow up here in [place] I spent a total of 40 minutes on the date of the service which included preparing to see the patient, [id number] patient care, completing clinical documentation, obtaining and/or reviewing separately obtained history, performing a medically appropriate examination, counseling and educating the patient/family/caregiver, ordering medications, tests, or procedures, and independently interpreting results (not separately reported). Hanna Bell MD Endocrinology Associate Staff [facility] Endocrinology and Metabolism [place] documented in this encounter [facility] 10-18-2023 Instructions Smitha Gramajo APRN.CNP - 10/18/2023 10:14 AM EDT Stop Symbicort; start Budesonide in nebulizer twice daily - rinse mouth well after use Continue Albuterol nebs OR inhaler up to 4 times per day Meet with speech therapist Keep us posted on symptoms documented in this encounter [facility] 10-18-2023 Note [facility] 10-18-2023 History of Presen t illness Narrative October 18, 2023 : 1960 CC: Follow up Ms. Snow is a 63 year old female with a medical history including asthma, pulmonary sarcoidosis, allergic rhinitis, h/o thyroid cancer s/p total thyroidectomy and XRT 2018, dysphagia / chronic aspiration, gastroparesis s/p corpak, esophageal strictures, and HTN that presents to follow up shortness of breath. Last visit completed with Dr. Palacio 3 months ago. Impression and plan from this visit: Assessment: -Dyspnea on exertion - this has worsened over the past year, but more so since February. The worsening is likely related to her recurring and chronic aspiration that seems to have gotten significantly worse. She is feeling the need for albuterol twice a day since February. -Asthma, moderate persistent, more recently less controlled - today PFTs normal. On Symbicort -Pulmonary sarcoidosis -Allergic rhinitis, intermittent -History of papillary thyroid cancer s/p thyroidectomy - dysphagia - significant and causing significant aspiration - aspiration -Progressive weight loss, underweight - has been gaining and maintaining a bit more - right vocal vord paralysis Plan: - continue Symbicort 160-4.5 2 puffs BID; reminded to rinse mouth well after use and advised spacer use - has albuterol to use prn, currently, using proair respiclick using twice a day since February using it consistently. - continue Singulair nightly; discussed BBW and potential side effects - she is following closely with ENT - would likely benefit from speech therapy - she should get back to routine follow up with Optho and we may need to consider updating echo given her sarcoidosis - we will plan for CT chest in 3 months to further evaluate current findings in RLL which could still be lingering from her pneumonia - she has a nebulizer machine at home. Needs tubing; I have sent script. Advised to use albuterol vials/nebs leading up to procedure date. She will let me know if there are any issues getting supplies needed for nebulizer. See below -planned for balloon dilation of esophagus on 08/08/2023; duration about 1 hour with general anesthesia. Currently her pfts are normal, cat scan shows near resolution of her most recent pneumonia about 2 months ago. She is clinically feeling relatively well, although using albuterol twice a day. The esophageal dilation is important overall and should likely not be delayed. The patient has a 1.6 % risk (low risk) of a post-operative pulmonary complication, specifically failed extubation or prolonged mechanical ventilation (including atelectasis, infection, exacerbation of underlying chronic lung disease, and bronchospasm), for the proposed surgery based on published risk assessments. This risk is not prohibitive for the proposed surgery from a pulmonary standpoint. The risk must be accepted by both the patient and the surgeon. In order to minimize the risk of complications and optimize pulmonary status, we recommend the following: I have asked her to start using the albuterol in the nebulzier every 4 hours the 2-3 days leading up to her procedure date to just provide some additional optimization Recommend scheduled duonebs during her stay post operatively and if staying overnight She will continue current regimen until then Discussed with the patient who agrees to the plan Return to the office in 3 months or sooner Since then, she was hospitalized several times for a variety of issues. Notably hospitalized 09/15-09/19 at which time she was treated for aspiration pneumonia at [facility]. 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 Patient reports did well after discharge until a week ago when she started having worsening nausea, then vomiting and inability to keep anything down even the tube feeds. She was evaluated at the local hospital in her town, CT abdomen showed that her corpak is in the stomach, she was also treated for acute hypoxic respiratory failure likely in settings of aspiration pneumonia with Zosyn and Azithro, she was discharged home on Levofloxacin until 09/18. Per the patient, OSH failed to advance the CORPAK and they have no resources to do so and they advised that she follows with F. Patient drove herself to [facility] ED. In the ED CT A/P with no acute process, did report Corpak being looped in stomach. Pt underwent EGD with corpak replacement on 09/18. KUB post procedure revealed corpak tip was in the duodenal bulb vs. Gastric antrum. TF was restarted and titrated up to goal. Pt tolerating at goal without nausea, vomiting, abdominal pain, or evidence of refeeding syndrome. Repeat KUB prior to discharge revealed tip remains in gastric antrum vs. Duodenal bulb. Discussed with patient to look out for signs of distention, increased, nausea, vomiting, abdominal pain which may indicate tube feed retaining in stomach. TF currently infusing at goal, pt feels great. Wishes to discharge. Follow up scheduled. PT discharged home in improved condition with follow up appts as scheduled. She did repeat CT chest last week. She notes she is not on a modified diet. She was seen by Speech therapy in May when she saw Dr. Gutierrez. Dysphagia concern noted. She admits to having a hard time breathing yesterday. She notes talking and exertion cause her to become short of breath. Admits to constant cough with phlegm. She is cold at home; denies fevers. Admits to coughing with eating. She does sleep with HOB elevated. Admits to slight LE edema that is attributed to her diet. Persistent hoarseness noted. The patients airways regimen is: Symbicort 160-4.5 2 puffs BID - doesn't care for it, seems dry Albuterol HFA once per day Albuterol nebs 1-2 times per day HISTORIES: PAST MEDICAL HISTORY Diagnosis Date Adjustment disorder with anxiety Asthma COPD (chronic obstructive pulmonary disease) (HCC) HTN (hypertension) Papillary thyroid carcinoma (HCC) PAST SURGICAL HISTORY Procedure Laterality Date CATARACT EXTRACTION HX LAPAROSCOPY SURG CHOLECYSTECTOMY REMOVAL OF KIDNEY STONE THYROIDECTOMY TOTAL/COMPLETE Social History Tobacco Use Smoking status: Never Passive exposure: Past Smokeless tobacco: Never Vaping Use Vaping Use: Never used Substance Use Topics Alcohol use: Yes Comment: Beer every once in a while Drug use: No FAMILY HISTORY Problem Relation Age of Onset Heart Attack Father 66 Cancer Other Current Outpatient Medications Medication Sig Dispense Refill metoclopramide HCl (REGLAN) 5 mg tablet Take 1 tablet by mouth four times daily. 120 tablet 2 azelastine 0.1% nasal spray Use 2 Sprays in each nostril two times a day as needed. 30 mL 5 triamcinolone acetonide (NASACORT) 55 mcg nasal inhaler Use 2 Sprays in the nose once daily. 10.8 mL 5 cetirizine (ZYRTEC) 5 mg tablet Take 1 tablet by mouth two times a day as needed for cold/allergy symptoms. 60 tablet 5 nutritional supplement (NUTREN 2.0) 0.08 G - 2 Kcal/mL oral liquid Infuse 4 cartons of Nutren 2.0 through [employer] Pump at 85 ml/hr for 12 hours. Flush 60 ml 6 times per day 62250 mL 11 acetaminophen (TYLENOL) 325 mg tablet Take 2 tablets by mouth every 6 hours as needed for pain. nutritional supplements (NUTREN 1.5) 0.07 gram-1.5 kcal/mL liqd Enteral/Tube Feedings: Nutren 1.5 or equivalent formula Goal Rate (mL/hr x hours): 50 ml/hr x 22 hours (1100 ml total volume provides 1650 kcals, 74 g protein, 840 ml free water) Water Flush Volume (mL x frequency: at least 30 ml 6x/day for tube patency; up to 135 ml 6x/day for goal hydration 83737 mL 11 ergocalciferol 50,000 unit capsule (VITAMIN D2, DRISDOL) Take 1 capsule by mouth one time a week. 8 capsule 0 guaiFENesin (ROBITUSSIN) 100 mg/5 mL syrup Take 20 mL by mouth every 4 hours as needed for cough. melatonin 3 mg tablet Take 1 tablet by mouth at bedtime as needed for insomnia. polyethylene glycol 3350 17 gram packet Take 1 Packet by mouth once daily. Dissolve dose in 4 - 8 ounces of liquid and take as directed. psyllium (METAMUCIL) 3.4 gram packet Take 1 Packet by mouth two times a day. senna (SENOKOT) 8.6 mg tab Take 1-2 tablets by mouth two times a day. triamcinolone (KENALOG) 0.025 % cream Apply to affected area two times a day. fluoride, sodium, (DENTA-GEL) 1.1 % gel 1 application by DENTAL route daily at bedtime. esomeprazole magnesium (NEXIUM) 40 mg packet Take 40 mg by mouth daily before breakfast. 90 Packet 1 Nebulizer Accessories kit Please supply her with the nebulizer kit to product safety technician to her machine 1 Kit 11 albuterol (PROVENTIL) 2.5 mg /3 mL (0.083 %) nebulizer solution Use 3 mL via nebulizer every 4 hours as needed for wheezing/shortness of breath. 270 mL 1 estradiol (CLIMARA) 0.1 mg/24 hr Apply 1 Patch as directed one time a week. levothyroxine (EUTHYROX) 150 mcg tablet Take 1 tablet by mouth daily before breakfast. (Patient taking differently: Take 112 mcg by mouth daily before breakfast.) 90 tablet 1 budesonide-formoterol (SYMBICORT) 160-4.5 mcg/actuation inhaler Inhale 2 Puffs as instructed twice daily. 1 Each 5 montelukast (SINGULAIR) 10 mg tablet Take 1 tablet by mouth daily at bedtime. 30 tablet 5 albuterol HFA (PROAIR HFA) 90 mcg/actuation inhaler 1-2 Puffs every 6 hours as needed for wheezing/shortness of breath. 1 Each 1 ProAir RespiClick 90 mcg/actuation breath activated Take 1-2 puffs every 4 to 6 hours as needed for shortness of breath or wheezing 1 Each 2 amLODIPine (NORVASC) 2.5 mg tablet Take 2.5 mg by mouth once daily. No current facility-administered medications for this visit. ALLERGIES Allergen Reactions Aller Xt-Tree Polle* Unknown Mold Unknown Strawberry Unknown OAK TREE ALLERGY REVEALED FROM ALLERGY TESTING Sulfa (Sulfonamide * GI Upset ROS: GENERAL: No weight loss, malaise or fevers HEENT: Negative for frequent or significant headaches RESPIRATORY: See HPI CARDIOVASCULAR: Negative chest pain Exam: Data: I have personally reviewed the following: CT chest Reviewed report and images 10/10/22 RESULT: Limitations: None. Lines, tubes, and devices: None. Lung parenchyma and airways: Central airways remain patent. Overall there has been significant improvement in the consolidative opacities in the lower lung zones along bronchovascular distribution likely represent improvement in patient's known sarcoidosis. Chronic right middle lobe consolidative opacities remain unchanged. Spiculated nodular opacities in the right upper lobe with traction bronchiectasis and architectural distortion are similar to the previous CT without interval change. Located in the right lower lobe posterior to the fissure is a 1.2 cm nodule (302, 121) previously measuring 1.2 cm and unchanged allowing for differences in measuring technique from the previous exam. Pleural space: No pleural effusion. No pleural thickening. Lower neck, lymph nodes, and mediastinum: The imaged thyroid gland is normal. Stable enlarged mediastinal and hilar lymph nodes are likely reactive related to patient's sarcoidosis.. Heart, pericardium, and thoracic vessels: The thoracic aorta and main pulmonary artery are normal in caliber. The cardiac chambers are normal in size. No coronary artery atherosclerotic calcifications are noted, although the study is not optimized for coronary assessment. No pericardial effusion or thickening. Bones and soft tissues: No destructive bone lesion. Degenerative changes in the thoracic spine. Chest wall is unremarkable. Upper abdomen: No abnormality in the imaged upper abdomen. Localizer images: Unremarkable. PFT Reviewed 07/20/23 - Normal amador, normal diffusion capacity PRE-BRONCH POST-BRONCH Pre LLN Pred ULN %Pred Post %Pred %Chg SPIROMETRY FVC (L) 2.46 2.05 2.83 3.63 86 FEV1 (L) 1.84 1.62 2.26 2.87 81 FEV1/FVC 0.75 0.68 0.80 0.90 93 PEF L/s (L/sec) 4.63 4.41 6.07 7.72 76 FEF50 (L/sec) 1.76 1.62 3.23 4.84 54 FIF50 (L/sec) 0.99 FEF50/FIF50 1.78 90-100 FIVC (L) 1.91 WYK20-26 (L/sec) 1.53 1.10 2.17 3.61 70 Time (sec) 3.79 FET PEF (sec) 0.11 ALAN (L) 0.07 Vol Extrap % (%) 3 LUNG DIFFUSION DLCOunc (ml/min/mmHg) 18.14 14.90 21.07 27.24 86 VA (L) 3.64 3.80 4.90 6.00 74 DLunc/VA (ml/min/mmHg/L) 4.98 3.15 4.47 5.78 111 Echo Reviewed 2019 CONCLUSIONS: - Technically difficult exam due to body habitus. - Exam indication: Pulmonary Sarcoidosis - The left ventricle is normal in size. Left ventricular systolic function is normal. EF = 58 5% (2D biplane) Normal left ventricular diastolic function. GLS is normal at -17.7% - The right ventricle is normal in size. Right ventricular systolic function is normal. - Exam was compared with the prior echocardiographic exam performed on 03/25/2019. There is no significant change. Labs Reviewed Glucose (mg/dL) Date Value 10/09/2023 104 03/04/2021 79 Potassium (mmol/L) Date Value 10/09/2023 4.3 03/04/2021 4.2 Sodium (mmol/L) Date Value 10/09/2023 141 03/04/2021 140 Chloride (mmol/L) Date Value 10/09/2023 101 03/04/2021 104 CO2 (mmol/L) Date Value 10/09/2023 30 03/04/2021 28 Creatinine (mg/dL) Date Value 10/09/2023 1.02 03/04/2021 0.81 Creatinine (POCT) (mg/dL) Date Value 03/01/2023 1.10 BUN (mg/dL) Date Value 10/09/2023 35 03/04/2021 13 Anion Gap (mmol/L) Date Value 10/09/2023 10 03/04/2021 8 Calcium (mg/dL) Date Value 03/04/2021 9.1 Calcium, Total (mg/dL) Date Value 10/09/2023 9.7 CBC with diff: WBC 6.95 10/09/2023 RBC 4.28 10/09/2023 Hemoglobin 11.5 10/09/2023 Hematocrit 36.4 10/09/2023 MCV 85.0 10/09/2023 MCH 26.9 10/09/2023 MCHC 31.6 10/09/2023 RDW-CV 15.1 10/09/2023 Platelet Count 278 10/09/2023 MPV 9.9 10/09/2023 Neut% 79.3 10/09/2023 Lymph% 10.4 10/09/2023 Mifflin% 7.6 10/09/2023 Eosin% 1.7 10/09/2023 Baso% 0.6 10/09/2023 Abs Neut (ANC) 5.51 10/09/2023 Abs Mifflin 0.53 10/09/2023 Abs Eosin 0.12 10/09/2023 Abs Baso 0.04 10/09/2023 Assessment: -Dyspnea, likely multifactorial r/t below + weakness / deconditioning -Chronic aspiration with recent pneumonia last month, improved on recent imaging -Asthma, moderate persistent -Pulmonary sarcoid -Vocal cord paralysis -Dysphagia / Gastroparesis / esophageal strictures, now status post Corpak placement, following closely with GI Plan: -Discussed plan with patient. Continues to notice persistent cough and dyspnea, both of which are likely multifactorial. -At this time, advised repeat speech evaluation. Currently not following any dietary restrictions. Remains an aspiration risk. Advised to sleep with HOB elevated. She is taking both tube feeds and oral intake. -Will discuss with Dr. Palacio the plan on following up her imaging. -She feels that Symbicort may be aggravating her hoarseness and making her throat dry. Discussed transitioning medications to nebulizer. She is agreeable. Stop Symbicort, start Budesonide nebs BID. Continue Albuterol HFA OR nebs up to 4 times per day. Consider switch to Duoneb and adding Perforomist. -Advised her to follow up with ENT and GI as advised. Patient agreeable with plan. RTO in [address] Palacio. Patient instructed to call our office or PCP or go to the emergency department for new or worsening problems or symptoms including, but not limited to, increasing shortness of breath, cough, phlegm, fever, and chills. Smitha Gramajo CNP documented in this encounter [facility] 10-15-2023 Telephone encounter Note This patient gave consent to this Medical Advice Message and is aware that it may result in a bill to their insurance, as well as the possibility of receiving a bill for a copay and/or deductible. They are an established patient, but are not seeking information exclusively about a problem treated during an in person or video visit in the last seven days. I did not recommend an in person or video visit within seven days of my reply. See the [employer] message reply for my assessment and plan. I spent a total of 21 minutes reviewing the patient's prior medical records and current request for medical advice, prescribing medications or ordering tests (if applicable), replying to the patient, and documenting the encounter. [facility] 10-15-2023 Miscellaneous Notes This patient gave consent to this Medical Advice Message and is aware that it may result in a bill to their insurance, as well as the possibility of receiving a bill for a copay and/or deductible. They are an established patient, but are not seeking information exclusively about a problem treated during an in person or video visit in the last seven days. I did not recommend an in person or video visit within seven days of my reply. See the [employer] message reply for my assessment and plan. I spent a total of 21 minutes reviewing the patient's prior medical records and current request for medical advice, prescribing medications or ordering tests (if applicable), replying to the patient, and documenting the encounter. documented in this encounter [facility] 10-12-2023 History of Presen t illness Narrative Zack Snow is a 63 year old patient here for follow up. Interval history - October 12, 2023 Overall nasal symptoms have been better. Managing with nasal sprays. Established with GI, started tube feeds which has helped with weight gain. Dx gastroparesis, on PPI. Reports ED visit for asthma flare triggered by aspiration pna. A few weeks ago she did have increase eye irritation and swelling of the eyes. Did have a steroid injection. Patient ROS and Physical exam reviewed and updated October 12, 2023. The below documentation was copied from my (Joelle Ren MD MPH) previous notes for review of history from previous visits. I have reviewed and verified all information during the patient visit and made updates where appropriate. The documentation was copied from note dated February 02, 2023 Since last visit using nose spray daily (she is not sure if nasacort or azelastine). Takes cetirizine sparingly because it dries out too much. Uses neti pot as needed. Last visit given PPI for suspected LPRD , could not swallow PPI so given famotadine instead. She takes it as needed for stomach upset. Pepcid daily did help with reducing throat congestion but was unable to When bending over gets mucous in the throat to the point that it can affect breathing. She eats small bites to avoid swallowing difficulty. Skipped steroid injection this year, noticing more sensitivity to contact irritants and nasal symptoms. 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 July 21, 2022 Zack Snow is a 62 year old patient with hx of sarcoidosis who presents with chief complaint: nasal symptoms Reports symptom of sinus pressure, itchy eyes, watery eyes, clear rhinorrhea, nasal congestion, sneezing, postnasal drip. She gets left sided sinus pressure and right eye itching. Eyelids are red and itchy. She has dry eyes. Sense of smell: Comes and goes along with taste These symptoms are perennial. The patient has been suffering from these symptoms for year, worse in the last year. The patient has tried: OTC eye drops (unsure of artificial tears). Has tried antihistamine as needed with partial relief. She uses nasal spray OTC as needed. PCP gives steroid injection in the spring to prevent contact dermatitis with poison blanca and sumac. Prior allergy evaluation: has had environmental testing 10 years ago which was did oak tree pollen Immunotherapy has never been tried. The patient has not had sinus surgery in the past. She has concerns for food allergy. Last Monday she was at work, had acute onset of nasal congestion affecting her ability to breathe. She used ice on her wrists and gradual resolution. No rash, GI or resp sx. Sometimes does feel like throat muscles gets tight. Triggers: mashed potatoes (milk, butter). She typically tolerates dairy. These episodes have been occurring more frequently. Recently diagnosed with bronchitis and given prednisone and oral steroids. She gets occasional heartburn, frequent throat clearing. ENVIRONMENTAL HISTORY: Tobacco smoke: No exposure in the home. Favian: [id number] carpeting Pets in the home: There are no pets in the home Feather/Down:No Dust mite controls: Dust mite controls are not in place. Air conditioning: Central air Current Outpatient Medications Medication Sig nutritional supplement (NUTREN 2.0) 0.08 G - 2 Kcal/mL oral liquid Infuse 4 cartons of Nutren 2.0 through [employer] Pump at 85 ml/hr for 12 hours. Flush 60 ml 6 times per day acetaminophen (TYLENOL) 325 mg tablet Take 2 tablets by mouth every 6 hours as needed for pain. nutritional supplements (NUTREN 1.5) 0.07 gram-1.5 kcal/mL liqd Enteral/Tube Feedings: Nutren 1.5 or equivalent formula Goal Rate (mL/hr x hours): 50 ml/hr x 22 hours (1100 ml total volume provides 1650 kcals, 74 g protein, 840 ml free water) Water Flush Volume (mL x frequency: at least 30 ml 6x/day for tube patency; up to 135 ml 6x/day for goal hydration ergocalciferol 50,000 unit capsule (VITAMIN D2, DRISDOL) Take 1 capsule by mouth one time a week. guaiFENesin (ROBITUSSIN) 100 mg/5 mL syrup Take 20 mL by mouth every 4 hours as needed for cough. melatonin 3 mg tablet Take 1 tablet by mouth at bedtime as needed for insomnia. polyethylene glycol 3350 17 gram packet Take 1 Packet by mouth once daily. Dissolve dose in 4 - 8 ounces of liquid and take as directed. psyllium (METAMUCIL) 3.4 gram packet Take 1 Packet by mouth two times a day. senna (SENOKOT) 8.6 mg tab Take 1-2 tablets by mouth two times a day. triamcinolone (KENALOG) 0.025 % cream Apply to affected area two times a day. fluoride, sodium, (DENTA-GEL) 1.1 % gel 1 application by DENTAL route daily at bedtime. esomeprazole magnesium (NEXIUM) 40 mg packet Take 40 mg by mouth daily before breakfast. Nebulizer Accessories kit Please supply her with the nebulizer kit to product safety technician to her machine albuterol (PROVENTIL) 2.5 mg /3 mL (0.083 %) nebulizer solution Use 3 mL via nebulizer every 4 hours as needed for wheezing/shortness of breath. estradiol (CLIMARA) 0.1 mg/24 hr Apply 1 Patch as directed one time a week. levothyroxine (EUTHYROX) 150 mcg tablet Take 1 tablet by mouth daily before breakfast. (Patient taking differently: Take 112 mcg by mouth daily before breakfast.) budesonide-formoterol (SYMBICORT) 160-4.5 mcg/actuation inhaler Inhale 2 Puffs as instructed twice daily. montelukast (SINGULAIR) 10 mg tablet Take 1 tablet by mouth daily at bedtime. cetirizine (ALL DAY ALLERGY) 1 mg/mL syrup Take 5 mL by mouth once daily. albuterol HFA (PROAIR HFA) 90 mcg/actuation inhaler 1-2 Puffs every 6 hours as needed for wheezing/shortness of breath. triamcinolone acetonide (NASACORT) 55 mcg nasal inhaler Use 2 Sprays in the nose once daily. azelastine (ASTELIN, ASTEPRO) 0.1% nasal spray Use 2 Sprays in each nostril twice daily as needed. ProAir RespiClick 90 mcg/actuation breath activated Take 1-2 puffs every 4 to 6 hours as needed for shortness of breath or wheezing amLODIPine (NORVASC) 2.5 mg tablet Take 2.5 mg by mouth once daily. No current facility-administered medications for this visit. ALLERGIES Allergen Reactions Aller Xt-Tree Polle* Unknown Mold Unknown Strawberry Unknown OAK TREE ALLERGY REVEALED FROM ALLERGY TESTING Sulfa (Sulfonamide * GI Upset PAST MEDICAL HISTORY Diagnosis Date Adjustment disorder with anxiety Asthma COPD (chronic obstructive pulmonary disease) (HCC) HTN (hypertension) Papillary thyroid carcinoma (HCC) PAST SURGICAL HISTORY Procedure Laterality Date CATARACT EXTRACTION HX LAPAROSCOPY SURG CHOLECYSTECTOMY REMOVAL OF KIDNEY STONE THYROIDECTOMY TOTAL/COMPLETE Social History Tobacco Use Smoking status: Never Passive exposure: Past Smokeless tobacco: Never Vaping Use Vaping Use: Never used Substance Use Topics Alcohol use: Yes Comment: Beer every once in a while Drug use: No FAMILY HISTORY Problem Relation Age of Onset Heart Attack Father 66 Cancer Other Physical Examination: Pulse 68 Wt 50 kg (110 lb 3.7 oz) SpO2 99% BMI 17.80 kg/m GENERAL: Well appearing, well nourished, no acute distress. HEAD: Normocephalic, no masses, lesions, tenderness or abnormalities. EYES: Anicteric sclera, PERRLA, EOMI, conjunctiva non-injected. EARS: External ears normal, canals clear, TM's normal. NOSE/SINUS: + mucosal edema, clear drainage on right OROPHARYNX: Lips, tongue normal. Oropharynx clear. NECK: Supple, no adenopathy. LUNGS: Lungs clear to auscultation. No wheezing or rhonchi. HEART: Regular rate and rhythm without murmur, gallop, or rub. EXTREMITIES: No deformities, cyanosis, or edema. NEURO: Alert and oriented. Normal gait and no involuntary motions. SKIN: Skin color, texture, and turgor normal. No suspicious rash or lesions. Diagnostics: July 21, 2022 Skin testing: See nurse procedure note for full details. Inhalant SPT: + trees Inhalant ID: + weeds, alternaria Assessment and Plan: 1) Chronic allergic rhinitis (trees, weed, ragweed, mold) - Oral antihistamine helps but over drying effect, may try cetirizine liquid 5ml or fexofenadine liquid 10ml - Nasal steroid spray (Nasacort) 2 sprays each nostril once daily. This medication is an intra-nasal steroid, which works better if you use it every day for weeks at a time. Stop use and call me if you develop a nose bleed. - Use Azelastine (Astelin/Astepro) 2 sprays each nostril twice daily as needed for runny, itchy nose, and sneezing. This medication is an anti-histamine, which works quickly (in about 30 minutes), and can be used as needed. - continue optimizing avoidance measures - If no improvement in symptoms with medication and avoidance measures as above can consider option of immunotherapy (allergy shots). - advised to avoid systemic steroid injections for allergies due to the numerous potential side effects with this treatment, she did receive August 2023. Advised next year to consider oral steroids instead of injeciton 2) Chronic pharyngitis - suspect multifactorial with acid reflux and post nasal drip contributing - continue rhinitis management as above - continue GERD management per GI 3) Adverse food reaction - skin test is negative for potato indicating no allergy - may reintroduce potatoes into the diet 4) Throat closing, dysphagia - s/p dilation with ENT 5) Asthma - suboptimal control, working with pulmonary on management - follow up with pulm as scheduled. Discussed medication dosage, usage, side effects, and goals of treatment in detail. Patient advised to call or return sooner should new symptoms or problems arise. Joelle Ren MD MPH FAAAAI documented in this encounter [facility] 10-12-2023 Note [facility] 10-11-2023 History of Presen t illness Narrative Radiology Service Progress Note PATIENT NAME: Zack Snow DATE OF SERVICE: October 11, 2023 TIME: 11:25 AM PATIENT IDENTITY VERIFICATION COMPLETED USING TWO (2) IDENTIFIERS: Name and Date of confirmed by patient verbally and Name and Date of confirmed by identification band. FALL SCREENING: Has the patient had 2 falls in the last year or 1 fall with injury or currently using an Ambulatory Assistive Device (Walker, Cane, Wheelchair, Crutches, etc.)? No PATIENT GENDER DATA: Female. status: : No status: NO. PATIENT RELEVANT IMPLANT DATA REVIEWED: Not Applicable PATIENT PRESENTS WITH AN IMPLANTABLE OR ATTACHED LANGUAGE TUTOR: No RADIOLOGY DEPARTMENT: CT; Exam(s) Completed: Chest PERIPHERAL IV DATA: Not applicable SIGNED BY: Mary Gregg RT(R) October 11, 2023 11:25 AM documented in this encounter [facility] 10-11-2023 Note [facility] 10-10-2023 Telephone encounter Note [employer] sent for pt MD order for EN and supplies, signed by Dr. Marquez. Faxed back to [email or web address] fax [phone]. Jeanine Lentz RN [facility] Work Phone: 10-10-2023 Miscellaneous Notes [employer] sent for pt MD order for EN and supplies, signed by Dr. Marquez. Faxed back to [email or web address] fax [phone]. Jeanine Lentz RN documented in this encounter [facility] 10-07-2023 Telephone encounter Note Called pt to review lab work needed for CT scan scheduled 10/11/23. No answer- LVM with callback number [facility] 10-07-2023 Miscellaneous Notes Called pt to review lab work needed for CT scan scheduled 10/11/23. No answer- LVM with callback number documented in this encounter [facility] 10-05-[address] - 10/05/2023 4:04 PM EDT Pain management after nasoenteric tube placement - Use oral pain relievers such as throat lozenges, sprays, or mouth rinses - Rinse mouth with Salt and Soda in warm water - Suck on ice chips, popsicles, fruit ices if you are are able to take liquids by mouth - For the first 48 hours after your procedure, use an ice pack - 20 to 30 minutes on the side of the face with the feeding tube. After 48 hours, swap out the ice for a warm compress or hot water bottle on the same schedule. - Talk to your doctor about taking a Non Steroidal Anti Inflammatory Drug (NSAID) such as Ibuprofen or Naproxen to help reduce swelling in your nose and throat EN Recommendations: Recommended Enteral Access (and tip placement): Nasoenteric (Corpak, Nasogastric) Tube Tip Location: Duodenum Recommended Tube Feeding Formula:?Nutren 2.0 Recommended Goal Rate: ?Continuous/cycled pump infusion of 85 mL/hr x 12 hours (1000 mL total/day) via Kangaroo Rafiq pump Recommended Goal Rate Provides: 2000 kcal, 84 g protein, 692 mL free water per day Recommended Water Flush (mL x freq): 60 mL X 6 per day Recommended Water Flush Provides: Additional 360 mL free water per day Is patient at-risk for refeeding syndrome? No Recommendations for Cycling your tube feeding: Start in slow increments and gradually work up to the desired cycle rate Continue to fill the bag with enough formula so that it does not sit out at room temperature for more than 12 hours (4 hours if using a commercial blenderized formula) Continue your prescribed flush during the day. It is important to keep the tube clean when the formula is not running to prevent clogs Formula Rate (ml/hr) Number of Hours Fill Bag 60 ml/hr 17 2 cartons for 9 hours, 2 cartons for 8 hours 70 ml/hr 15 3 cartons for 11 hours, 1 carton for 3 hours 85 ml/hr 12 4 cartons for 12 hours documented in this encounter [facility] 10-05-2023 History of Presen t illness Narrative [facility] SMALL BOWEL DISEASES AND NUTRITION NEW ENCOUNTER Date of direct communication: 10/05/23 Assessment IMPRESSION: Zack Snow is a 63 year old female with history of HTN, GERD, gastroparesis, anxiety, 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 She is working on what she can tolerate orally due to her dysphagia, however not meeting her needs. Will change formula to Nutren 2.0 and cycle for better quality of life. As she had an aspiration event with feeding in to the stomach, advise for direct J tube, will arrange with surgical colleagues to see if they can arrange quickly Will arrange for micronutrients screening, advise to take Vitamin D at least 2000 international unit(s) daily. #) Dysphagia/ ?gastroparesis Managed by others, noted to have a liquid GES in care everywhere that was delayed but no solid one has been performed. FOLLOW-UP: 8-10 weeks time April Marquez MD, MSc, [facility], CNSC Staff, Department of Gastroenterology, Hepatology & Nutrition [facility] [place] [facility] 10/05/23 REFERRING PROVIDER: Sara Horan [id number] [place] [phone] My final recommendations will be communicated back to the requesting physician by way of shared Medical record or letter to requesting physician via [place] mail. REASON FOR REFERRAL: EN management HISTORY: Zack Snow is a 63 year old female with history of HTN, GERD, gastroparesis, anxiety with dysphagia on EN seen in consultation for management. Today she states she is able to take in more than she has in the past but still only bites of food No loner having any vomiting, some regurgitation with leaning forward after drinking. No bloating and minimal abdominal pain Bowel habits are normal going 1-2 times a day and soft, urinating well, feels hydrated Continues to have issues with dysphagia, hoping to get a dilation soon The [place] is working well, infusing 24hours and getting in flushes, some mild clogging but warm water has helped. Interested to hear game plan with the tube, ussing throat spray for discomfort but somewhat helpful. CURRENT NUTRITION SUPPORT: Nutren 1.5 at 50cc/hr Eats some oral solids, eggs/yogurt and water throughout the day Cannot tolerate ONS, trying other protein powders/products Tolerating tube feeds 50 ml/hr for 22 hours Weight history:Last 10 Encounter Wt Readings: Date: Wt: 09/16/2023 50.6 kg (111 lb 8.8 oz) 09/07/2023 50.6 kg (111 lb 9.6 oz) 08/24/2023 46.1 kg (101 lb 10.1 oz) 08/02/2023 50.7 kg (111 lb 12.4 oz) 07/20/2023 50.3 kg (110 lb 14.3 oz) 06/20/2023 50 kg (110 lb 3.7 oz) 06/13/2023 50.6 kg (111 lb 9.6 oz) 03/22/2023 51.8 kg (114 lb 1.6 oz) 03/01/2023 48.4 kg (106 lb 9.6 oz) 02/15/2023 49.9 kg (110 lb) Lowest weihgt was 99 lbs Goal weight is 123lbs Current Outpatient Medications Medication Sig acetaminophen (TYLENOL) 325 mg tablet Take 2 tablets by mouth every 6 hours as needed for pain. nutritional supplements (NUTREN 1.5) 0.07 gram-1.5 kcal/mL liqd Enteral/Tube Feedings: Nutren 1.5 or equivalent formula Goal Rate (mL/hr x hours): 50 ml/hr x 22 hours (1100 ml total volume provides 1650 kcals, 74 g protein, 840 ml free water) Water Flush Volume (mL x frequency: at least 30 ml 6x/day for tube patency; up to 135 ml 6x/day for goal hydration ergocalciferol 50,000 unit capsule (VITAMIN D2, DRISDOL) Take 1 capsule by mouth one time a week. guaiFENesin (ROBITUSSIN) 100 mg/5 mL syrup Take 20 mL by mouth every 4 hours as needed for cough. melatonin 3 mg tablet Take 1 tablet by mouth at bedtime as needed for insomnia. polyethylene glycol 3350 17 gram packet Take 1 Packet by mouth once daily. Dissolve dose in 4 - 8 ounces of liquid and take as directed. psyllium (METAMUCIL) 3.4 gram packet Take 1 Packet by mouth two times a day. senna (SENOKOT) 8.6 mg tab Take 1-2 tablets by mouth two times a day. triamcinolone (KENALOG) 0.025 % cream Apply to affected area two times a day. fluoride, sodium, (DENTA-GEL) 1.1 % gel 1 application by DENTAL route daily at bedtime. esomeprazole magnesium (NEXIUM) 40 mg packet Take 40 mg by mouth daily before breakfast. Nebulizer Accessories kit Please supply her with the nebulizer kit to product safety technician to her machine albuterol (PROVENTIL) 2.5 mg /3 mL (0.083 %) nebulizer solution Use 3 mL via nebulizer every 4 hours as needed for wheezing/shortness of breath. estradiol (CLIMARA) 0.1 mg/24 hr Apply 1 Patch as directed one time a week. levothyroxine (EUTHYROX) 150 mcg tablet Take 1 tablet by mouth daily before breakfast. (Patient taking differently: Take 112 mcg by mouth daily before breakfast.) budesonide-formoterol (SYMBICORT) 160-4.5 mcg/actuation inhaler Inhale 2 Puffs as instructed twice daily. montelukast (SINGULAIR) 10 mg tablet Take 1 tablet by mouth daily at bedtime. cetirizine (ALL DAY ALLERGY) 1 mg/mL syrup Take 5 mL by mouth once daily. albuterol HFA (PROAIR HFA) 90 mcg/actuation inhaler 1-2 Puffs every 6 hours as needed for wheezing/shortness of breath. triamcinolone acetonide (NASACORT) 55 mcg nasal inhaler Use 2 Sprays in the nose once daily. azelastine (ASTELIN, ASTEPRO) 0.1% nasal spray Use 2 Sprays in each nostril twice daily as needed. ProAir RespiClick 90 mcg/actuation breath activated Take 1-2 puffs every 4 to 6 hours as needed for shortness of breath or wheezing amLODIPine (NORVASC) 2.5 mg tablet Take 2.5 mg by mouth once daily. No current facility-administered medications for this visit. ALLERGIES Allergen Reactions Aller Xt-Tree Polle* Unknown Mold Unknown Strawberry Unknown OAK TREE ALLERGY REVEALED FROM ALLERGY TESTING Sulfa (Sulfonamide * GI Upset PAST MEDICAL HISTORY Diagnosis Date Adjustment disorder with anxiety Asthma COPD (chronic obstructive pulmonary disease) (HCC) HTN (hypertension) Papillary thyroid carcinoma (HCC) PAST SURGICAL HISTORY Procedure Laterality Date CATARACT EXTRACTION HX LAPAROSCOPY SURG CHOLECYSTECTOMY REMOVAL OF KIDNEY STONE THYROIDECTOMY TOTAL/COMPLETE Social History Tobacco Use Smoking status: Never Passive exposure: Past Smokeless tobacco: Never Vaping Use Vaping Use: Never used Substance Use Topics Alcohol use: Yes Comment: Beer every once in a while Drug use: No FAMILY HISTORY Problem Relation Age of Onset Heart Attack Father 66 Cancer Other REVIEW OF SYSTEMS: Complete ROS performed and negative outside of the systems documented in the HPI. INVESTIGATIONS: All available pertinent interval investigations were reviewed and were notable for: ENDOSCOPY/PATHOLOGY: 09/19/23 EGD Impression: - Bilious gastric fluid, suctioned out. - Corpak Feeding tube placement was successfully performed. 08/31/23 EGD Diffuse plaques were found in the entire esophagus. No gross lesions were noted in the stomach. A guide wire was inserted into the duodenum and the endoscope was removed. A nasojejunal tube was advanced over the guide wire into the duodenum. No gross lesions were noted in the duodenum. Impression: - Esophageal plaques were found, consistent with candidiasis. - No gross lesions in the stomach. - No gross lesions in the duodenum. - Feeding tube placement was successfully performed. - No specimens collected. EGD 05/18/23 Impression: - Z-line regular, 37 cm from the incisors. - Normal esophagus. - Gastritis. Biopsied. - Normal examined duodenum. Biopsied. A. Small bowel, biopsy: - Duodenal mucosa with no significant diagnostic alteration. - No evidence of celiac disease or duodenitis. B. Stomach, biopsy: - Reactive antral gastropathy with intestinal metaplasia, negative for dysplasia. - Oxyntic mucosa with no significant diagnostic alteration. - No morphologic evidence of Helicobacter pylori organisms. IMAGING: AXR 09/20/23 IMPRESSION: Lines, Tubes, Devices: Corpak feeding tube loops in the gastric fundus, tip at the prepyloric gastric antrum or duodenal bulb. There are cholecystectomy clips. Bowel: No dilated loops of bowel. CT abdomen 09/16/23 IMPRESSION: No acute process in the abdomen or pelvis. Corpak feeding tube is looped in the stomach with tip in the gastric body. This can be repositioned. ?Gastric emptying with contrast delayed (2022) Report not seen LAB WORK: Latest Reference Range & Units 09/20/23 02:11 09/20/23 10:53 Sodium 136 - 144 mmol/L 137 139 Potassium 3.7 - 5.1 mmol/L 3.6 (L) 3.9 Chloride 97 - 105 mmol/L 103 102 CO2 22 - 30 mmol/L 22 24 BUN 7 - 21 mg/dL 15 18 Creatinine 0.58 - 0.96 mg/dL 0.69 0.83 Glucose 74 - 99 mg/dL 97 95 Calcium 8.5 - 10.2 mg/dL 9.0 9.5 Magnesium 1.7 - 2.3 mg/dL 2.0 2.1 Phosphorus 2.7 - 4.8 mg/dL 2.8 3.1 Albumin 3.9 - 4.9 g/dL 3.4 (L) 3.7 (L) Anion Gap 9 - 18 mmol/L 12 13 eGFR >=60 mL/min/1.73m 99 80 (L): Data is abnormally low Latest Reference Range & Units Most Recent Vitamin B12 232 - 1,245 pg/mL 1,259 (H) 08/29/23 04:40 Ferritin 14.7 - 205.1 ng/mL 211.0 (H) 08/29/23 04:40 Iron 41 - 186 ug/dL 39 (L) 08/29/23 04:40 TIBC 232 - 386 ug/dL 192 (L) 08/29/23 04:40 Transferrin Saturation 15.0 - 57.0 % 20.3 08/29/23 04:40 CRP <0.9 mg/dL 4.4 (H) 09/16/23 14:40 Vitamin D 25 Hydroxy 31.0 - 80.0 ng/mL 19.0 (L) 08/30/23 06:12 (H): Data is abnormally high (L): Data is abnormally low Latest Reference Range & Units 09/20/23 02:11 WBC 3.70 - 11.00 k/uL 5.68 RBC 3.90 - 5.20 m/uL 3.91 Hemoglobin 11.5 - 15.5 g/dL 10.5 (L) Hematocrit 36.0 - 46.0 % 31.0 (L) Platelet Count 150 - 400 k/uL 285 MCV 80.0 - 100.0 fL 79.3 (L) MCH 26.0 - 34.0 pg 26.9 MCHC 30.5 - 36.0 g/dL 33.9 MPV 9.0 - 12.7 fL 9.3 RDW-CV 11.5 - 15.0 % 14.5 (L): Data is abnormally low PHYSICAL EXAM: BP 148/88 Pulse 102 Temp 36.8 C (98.2 F) (Temporal) Ht 167.6 cm (5' 5.98 ) Wt 50.8 kg (112 lb) SpO2 99% BMI 18.09 kg/m Body mass index is 18.09 kg/m . Constitutional: resting comfortably HEENT: No icterus. Dentition in tact. Moist mucus membranes. Neck: No lymphadenopathy. No major masses Resp: Normal resp effort. Clear air entry with no crackles or wheezes CVS: PPP bilat. Normal S1 and S2 Abdo: Non-distended, soft, no masses. prior lower surgical scar noted TIM: Deferred Extr: muscle bulk: moderate loss and subQ fat: mild loss. No edema. Skin: Warm and dry. No rash. Nails intact Neuro: A&O, normal gait. Psych: Normal affect and memory. Total time of this patient encounter today was >55 mins, including: preparation for visit, direct time with the patient, examination, orders, review of records, and documentation. documented in this encounter [facility] 10-05-2023 Note [facility] 10-05-2023 History of Presen t illness Narrative Nutrition Therapy Initial Assessment Nutrition Diagnosis: Inadequate oral intake, related to, dysphagia, as evidenced by diet recall . RECOMMENDED MALNUTRITION DIAGNOSIS: MODERATE PROTEIN-CALORIE MALNUTRITION NUTRITION CARE PLAN Nutrition Intervention 10/05/2023: Pain management after nasoenteric tube placement - Use oral pain relievers such as throat lozenges, sprays, or mouth rinses - Rinse mouth with Salt and Soda in warm water - Suck on ice chips, popsicles, fruit ices if you are are able to take liquids by mouth - For the first 48 hours after your procedure, use an ice pack - 20 to 30 minutes on the side of the face with the feeding tube. After 48 hours, swap out the ice for a warm compress or hot water bottle on the same schedule. - Talk to your doctor about taking a Non Steroidal Anti Inflammatory Drug (NSAID) such as Ibuprofen or Naproxen to help reduce swelling in your nose and throat EN Recommendations: Recommended Enteral Access (and tip placement): Nasoenteric (Corpak, Nasogastric) Tube Tip Location: Duodenum Recommended Tube Feeding Formula:?Nutren 2.0 Recommended Goal Rate: ?Continuous/cycled pump infusion of 85 mL/hr x 12 hours (1000 mL total/day) via Kangaroo Rafiq pump Recommended Goal Rate Provides: 2000 kcal, 84 g protein, 692 mL free water per day Recommended Water Flush (mL x freq): 60 mL X 6 per day Recommended Water Flush Provides: Additional 360 mL free water per day Is patient at-risk for refeeding syndrome? No Recommendations for Cycling your tube feeding: Start in slow increments and gradually work up to the desired cycle rate Continue to fill the bag with enough formula so that it does not sit out at room temperature for more than 12 hours (4 hours if using a commercial blenderized formula) Continue your prescribed flush during the day. It is important to keep the tube clean when the formula is not running to prevent clogs Formula Rate (ml/hr) Number of Hours Fill Bag 60 ml/hr 17 2 cartons for 9 hours, 2 cartons for 8 hours 70 ml/hr 15 3 cartons for 11 hours, 1 carton for 3 hours 85 ml/hr 12 4 cartons for 12 hours Permanency of enteral nutrition provision: Permanence means that the condition is of indefinite duration and/or >90 days. Permanence does not exclude the possibility of improvement. Choose ALL that apply:?Enteral nutrition needs are anticipated for greater than 90 days (unless significant clinical improvements occur). Medical necessity for enteral nutrition: Non-function or disease of the structures that permit food to reach the small bowel Requires tube feedings to maintain weight & strength. Adequate nutrition is not possible through dietary adjustments or oral supplements Does patient require enteral nutrition infusion pump? Does patient require enteral nutrition infusion pump?: YES: Jejunostomy tube used for feeding Does patient require specialty formula? NO Percentage total calorie needs provided via enteral nutrition: Enteral nutrition will provide greater than 90% estimated nutrition needs. Home Health Care: [facility]: [place], [place] Managing Physician/Staff: April Marquez MD ? Nutrition Monitoring & Evaluation: TF tolerance, weight Need for Follow up: 3 weeks Patient presents I have confirmed and edited as necessary the HPI obtained by Sara Horan MD on 09/07/23 and all reflect current status. Zack Snow is a 63 year old female with past medical history of - GERD with esophagitis - esophageal stricture s/p esophageal dilation with EGD 08/08/2023 - chronic gastritis - gastroparesis - dyspepsia - enterocolitis - s/p cholecystectomy - papillary thyroid carcinoma s/p thyroidectomy 07/2018 c/w right vocal cord paralysis & s/p radiotherapy 09/2018, acquired hypothyroidism - severe protein calorie malnutrition - hypertension - hyperlipidemia - asthma - sarcoidosis Who was admitted to [facility] on 08/22/2023 for constellation of symptoms suggestive of possible her known hx of gastroparesis: abdominal pain, nausea, vomiting, poor oral intake, dehydration, loss of weight and generalized fatigue that has been ongoing for few days. Patient also had recent admission on 05/2023 for gastroparesis related symptoms. During her admission course at [facility]: UA positive for trace leukoesterase, CBC with leukocytosis (WBC 17.2); CT A/P on admission shows right lower lobe bronchiectasis with consolidation, some mucous plugging to right middle lobe. Patient was started on IV Rocephin (had 4 day course of Rocephin) due to concern for possible aspiration pneumonia/pneumonitis and UTI (complaint of dysuria). Patient's symptoms are: GI: gastric reflux, nausea, and vomiting Weight Concerns: weight loss ED Screening: Do you avoid eating certain foods? For what purpose? - Upper Sorbian food/dairy products - stomach upset If eating more food or weight gain resolved most of your GI symptoms would you be willing to do so? - yes Do you have a history of or an active eating disorder? - yes Today, patient reports the following: - Energy level?Fair - Abdominal pain? None (dull, sharp, cramping, throbbing, burning or stabbing) - Abdominal distention?none - Bloated?none - Flatulence?none - Nausea or vomiting?yes mostly regurgitation - Burping?none - Heartburn?none - Sign of dehydration: Muscle cramp, dry mouth, headaches, dark urine?yes - dry mouth Output: The patient has 1-2 BMs every other day. The output is bristol type long and slender and nuggets. Stool consistency: Formed Constipation: - MOM helps - Straining or pushing hard to defecate?yes - Cramping around moving bowel? Does it change after passing stool? none - An incomplete bowel movement ?sometimes Menstruation Hx: post menopausal Diet History: Breakfast - scrambled egg, hot cereal made with lactaid milk, 8 oz water Lunch - egg salad sandwich on slider bun Dinner - [employer] or [employer] with sauce and mirtha rice (1 cup) - eats 75-100% Snack - potato chips - handful Beverages - vitamin water/gatorade/powerade - approx 48 oz per day Alcohol- none Vitamins/Supplements - None Enteral History: Current Enteral Access (and tip placement): Nasoenteric (Corpak, Nasogastric) Tube Tip Location: Duodenum Tube connection type: ENFit Attached clamp: No Extension: None Tube placement details if available (ie surgeon, date place/replaced, etc): 09/19/23- Current Tube Feeding Formula:?Nutren 1.5 Current Rate:?Continuous/cycled pump infusion of 50 mL/hr x 22 hours (1100 mL total/day) via Hermes IQ pump Current Rate Provides: 1650 kcal, 74 g pro,?840 mL free water per day??? Current Water Flush (mL x freq):? 30 mL X 6 per day Current Water Flush Provides: Additional 180 mL free water per day? Current Tolerance:Good Other formulas tried and not tolerated:?None Does the patient require and feed and flush bag? No Activity: Activities of Daily Living: Active 50% of the day. 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) Additional Activity: Moderately active (Moderate intensity exercise: Planned physical activity 3-5 days/week) Anthropometrics: Height: Last 1 Encounter Ht Readings: Date: Ht: 09/16/2023 167.6 cm (5' 6 ) Weight: Last 10 Encounter Wt Readings: 10/05/2023 50.8 kg (112 lb) 09/16/2023 50.6 kg (111 lb 8.8 oz) 09/07/2023 50.6 kg (111 lb 9.6 oz) 08/24/2023 46.1 kg (101 lb 10.1 oz) 08/02/2023 50.7 kg (111 lb 12.4 oz) 07/20/2023 50.3 kg (110 lb 14.3 oz) 06/20/2023 50 kg (110 lb 3.7 oz) 06/13/2023 50.6 kg (111 lb 9.6 oz) 03/22/2023 51.8 kg (114 lb 1.6 oz) 03/01/2023 48.4 kg (106 lb 9.6 oz) 02/15/2023 49.9 kg (110 lb) 02/02/2023 49 kg (108 lb) 07/21/2022 54.5 kg (120 lb 3.2 oz) 18.01 kg/m2 % weight change: Stable weight x > 1 year UBW/Goal Weight: 170# Resting Metabolic Rate: 1091 Dosing weight: 50.6 kg Current Weight Estimated Nutrition Needs: Estimated kilocalorie needs:?1518 -1771?kilocalories determined by 30-35 kcal/kg Estimated protein needs:?61 -76 ?grams determined by 1.2-1.5 g/kg Estimated fluid needs:? 1518 -1771?milliliters based on 1 mL per kcal Labs: (09/20/23) Na+ 139, K+ 3.9, Alb 3.7, Mg 2.1, Phos 3.1, - Utox, H/H 10.5/31.0, MCV 79.3, Ferritin 211, Iron 39, TIBC 192, B12 1259, Vit D 19, TSH 0.539 KUB 09/20/23: Lines, Tubes, Devices: Corpak feeding tube loops in the gastric fundus, tip at the prepyloric gastric antrum or duodenal bulb. There are cholecystectomy clips. Bowel: No dilated loops of bowel. EGD 09/19/23 The examined duodenum was normal. Moderate amount of Bilious fluid was found in the stomach, suctioned out. The entire examined stomach was normal. A guide wire was inserted into the duodenum and the endoscope was removed. A 10 Fr nasojejunal tube was advanced over the guide wire into the duodenum. Corpak secured to nose with a bridle. The examined esophagus was normal. CT 06/29/2023 1. Compared to 06/07/2022 exam, prior noted sarcoidosis related peribronchovascular opacities (asymmetric upper lobe predominant pattern) appears similar. However, there are new opacities noted notable in the right middle and lower lobes, some of which may be peribronchovascular, many of which appear centrilobular and possibly interstitial. The distribution in the light of dilated esophagus and known history of GERD, and prior noted waxing and waning opacities raises concern for aspiration related process. Nontuberculous mycobacterial infection not completely excluded. 2. Stable appearing right lower lobe nodules noted at this time (coalescent granulomas?). 3. Redemonstration of intrathoracic lymphadenopathy related to sarcoidosis, with some of the lymph nodes demonstrating intrinsic calcification (increased intrinsic attenuation). Patulous esophagus redemonstrated. 4. Suspect trace pericardial effusion, slightly increased. Prominent left atrium. MBSS 06/16/23 IMPRESSIONS: Ms. Reis presented with a functional oral phase swallow and a mild pharyngeal phase dysphagia. Pharyngeal phase dysphagia characterized by some generalized pharyngeal weakness, but with no laryngeal penetration or aspiration visualized during today's study. Moderate to severe pharyngeal residue (thin < purees) at the level of the piriforms upon completion of the swallow. While pharyngeal weakness is present, the majority of pharyngeal residue is a result of narrowing at the level of C6 (see image below), causing obstruction of bolus flow. So much so that, for purees, there was absolutely no clearance of the bolus, and only after a dry reswallow was some of the residue cleared. Two instances of patient having to expectorate bolus back to the oral cavity with eventual spittle. The following swallowing maneuvers were trialled in an effort to improve swallowing efficiency: chin tuck; left head rotation; right head rotation; and left head rotation with a chin tuck. Though a small improvement, a left head rotation was deemed most effective at reducing pharyngeal residue, with patient self reporting alleviation of globus sensation. Limited esophageal sweep revealed questionable Zenker's Diverticulum with small amounts of retention at the level of the outpouching. In addition, patient with retention in the distal esophagus, with slowed bolus clearance. Suspect repeat esophageal dilation would help alleviate some of patient's reported dysphagia symptoms. However, would also benefit from some swallow therapy for pharyngeal strengthening. In addition, given history of radiation and patient reporting discomfort/tightness in the neck, recommend considering of consultation for lymphedema therapy. While no aspiration or penetration was seeing during today's exam, given level of pharyngeal residue visualized during today's exam, potential for aspiration after the swallow exists, as a result, in the future, if concern for aspiration persists, recommend completing Fiberoptic Endoscopic Evaluation of Swallowing (FEES), as exam can better mimic a meal in its entirety rather than a MBSS which is more a snapshot in time. Meds: Albuterol, Amlodapine, Budesonide/formoterol, Vit D 94265, esomeprazole, estradiol, guaifenesin, levothyroxine, PEG Malnutrition Screening Significant unintentional weight loss? Yes Eating less than 75% of usual intake for more than 2 weeks? NUTRITION FOCUSED PHYSICAL EXAM: Subcutaneous Fat Loss Orbital Mild Triceps None Mid-axillary at the iliac crest None Muscle Loss Locations: Temporalis Moderate Pectoralis Severe Deltoids Severe Interosseous Moderate Latissimus dorsi, trapezius Moderate Quadriceps None Gastrocnemius None Potential micronutrient deficiency revealed in: Hair - dull Edema: Yes Lower extremities Mild 1+ Ascites: No Assessment of Functional Status: Unable to assess Potential Signs of Inflammation: chronic condition In the context of Chronic Illness or Injury based on: Subcutaneous Fat Loss: Mild Loss Muscle Loss Severe Loss Education Materials Provided: None this visit READINESS TO LEARN Cognitive ability: Alert and oriented Motivation to learn: Interested Family support: Unable to assess - Family not present Instruction provided to: Patient Patient learns best by: Individual Instruction Factors affecting learning: None Physical limitations affecting learning: None Referred/Supervised by: Sara Horan MD/April Marquez MD MNT Billing Type: Initial Assess/15 min 4 units SIGNATURE: Carrie Pennington, MS, RD, LD PATIENT NAME: Zack Snow DATE: 10/05/2023 TIME: 9:54 AM documented in this encounter [facility] 10-05-2023 Note [facility] 09-20-2023 Note HNO ID: [id number] Author: NITIN MAYES RN Service: ? Author Type: Registered Nurse Type: Nursing Progress Note Filed: 09/20/2023 03:41 Note Text: Other: LIP notified of K level: 3.6. awaiting response/new orders. [facility] 09-19-2023 Note HNO ID: [id number] Author: FIDEL LOGAN RN Service: Gastroenterology Author Type: Registered Nurse Type: Nursing Progress Note Filed: 09/19/2023 12:37 Note Text: Took report from Clarita RIVERA [facility] 09-19-2023 Note [facility] 09-18-2023 Note [facility] 09-17-2023 Note [facility] 09-16-2023 Note [facility] 09-07-2023 Instructions Sara Horan MD - 09/07/2023 2:41 PM EDT # suspected gastroparesis based on symptoms of nausea vomiting # post-surgical hypothyroidism, current TSH is 0.148 # GERD # sarcoidosis # history of papillary thyroid carcinoma s/p total thyroidectomy in 2019 and adjuvant RT # vocal cord paralysis after surgery for the above # oropharyngeal dysphagia, improved after dilation by Dr. Gutierrez # esophageal candidiasis, risk factor includes Symbicort # weight loss # severe protein malnutrition, currently with Corpak-- Nutren 1.5 50 mL/hr for 22 hours # recent hospitalization for aspiration pneumonia # constipation Zack has had worsening of chronic symptoms since increase of her levothyroxine. She recalls unintentional weight loss with each increase of levothyroxine. She now has all the symptoms of gastroparesis although there is no formal diagnosis via a gastric emptying study. Her TSH is 0.148, which is significantly lower compared to 02/2023 before her levothyroxine was increased. I discussed with her that although we see gastroparesis/nausea/vomiting more in patients with hypothyroidism, we also see it in patients with hyperthyroidism. 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 In terms of tube feeds-- she does appear to be taking in adequate amounts orally, so I am not sure that she would require enteral feeding equipment operator intermodal yard especially if her thyroid problems can be improved. Therefore, I recommend a nutrition consult to evaluate for caloric counting PO, and to remove Corpak once she reaches adequate PO intake. In terms of medical therapy for gastroparesis, hopefully this will resolve/ improve with decreasing her levothyroxine, but for now, I would decrease Reglan to 3 times a day as needed. - decrease Reglan to 5 mg 3 times a day, if no significant worsening of nausea/vomiting in 1 week, then decrease further to twice a day, and if no significant worsening of nausea/vomiting, then decrease to 5 mg once a day at bed time. - continue bowel regimen with Miralax to avoid constipation - oropharyngeal dysphagia, this has improved significantly with dilation by Dr. Gutierrez Follow up with me in 3 months, virtual or in person ok documented in this encounter [facility] 09-07-2023 History of Presen t illness Narrative Images from the original note were not included. New Patient/Consult REASON FOR VISIT Zack Snow is a 63 year old female who is scheduled for nausea/vomiting/ abdominal pain at the consult request of Timothy Moore. My final recommendations will be communicated back to the requesting physician by the way of the shared medical record, fax, or via US Mail. PRESENTING COMPLAINT & HISTORY - Tolerating tube feeds 50 ml/hr for 22 hours - Hasn't had to vomit since starting Reglan 4 times a day - breakfast: azeri toast, lunch: soup and turkey sandwich, dinner was ham and turkey sandwich No nausea or vomiting - oropharyngeal dysphagia has resolved since dilation by Dr. Gutierrez - takes Nexium 40 mg daily, still has sore throat, usually not burning regurgitation but has spit up saliva, no heartburn - moving bowels every 2 days - gained 10 lbs since discharge Gastric emptying study Does patient have achalasia? No GI EVALUATION Reviewed Colonoscopy 10 years ago was normal Prior Therapy: 1. 08/14/2018 - s/p total thyroidectomy, central neck dissection: 4.6 cm PTC in right lobe, present at inked margin, adherent to trachea focally, TCV with hobnail features. LVI+, non ETE, 2/2 LN+, without EDUIN. pT4a N1. 2. 09/20/2018 - I-131 156.8 mCi; post-treatment imaging with residual activity in the neck, no evidence for local or distant functional thyroid mets 3. 11/08/2018 - completed adjuvant RT Pathology: FINAL DIAGNOSIS 1. Right superior parathyroid, excision (A) - Parathyroid gland tissue. 2. Proximal recurrent nerve right side, excision (B) - Nerve; negative for neoplasm. 3. Distal recurrent nerve right side, excision (B) - Nerve; negative for neoplasm. 4. Tracheal shave, resection (D) - Fibrous tissue; negative for neoplasm. 5. Medial tracheal margin, excision (E) Focal atypical thyroid follicles with marked crushed artifact involving fibrous tissue. 6. Inferior tracheal margin, excision (F) - Fibroadipose tissue; negative for neoplasm. 7. Superior tracheal margin, excision (G) - Fibrous tissue; negative neoplasm. 8. Lateral tracheal margin, excision (H) - Fibroadipose tissue; negative for neoplasm. 9. Muscular esophagus and nerve, excision (I) - Fibroadipose tissue; negative for neoplasm. 10. 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 Discharge summary Zack Snow is a 63 year old female with past medical history of - GERD with esophagitis - esophageal stricture s/p esophageal dilation with EGD 08/08/2023 - chronic gastritis - gastroparesis - dyspepsia - enterocolitis - s/p cholecystectomy - papillary thyroid carcinoma s/p thyroidectomy 07/2018 c/w right vocal cord paralysis & s/p radiotherapy 09/2018, acquired hypothyroidism - severe protein calorie malnutrition - hypertension - hyperlipidemia - asthma - sarcoidosis Who was admitted to [facility] on 08/22/2023 for constellation of symptoms suggestive of possible her known hx of gastroparesis: abdominal pain, nausea, vomiting, poor oral intake, dehydration, loss of weight and generalized fatigue that has been ongoing for few days. Patient also had recent admission on 05/2023 for gastroparesis related symptoms. During her admission course at [facility]: UA positive for trace leukoesterase, CBC with leukocytosis (WBC 17.2); CT A/P on admission shows right lower lobe bronchiectasis with consolidation, some mucous plugging to right middle lobe. Patient was started on IV Rocephin (had 4 day course of Rocephin) due to concern for possible aspiration pneumonia/pneumonitis and UTI (complaint of dysuria). Per report, no GI at OSH at this time, transferred from [facility] to [facility] for GI evaluation and for nutritional intake assessment/possible feeding tube placement. Rocephin continued for 3 more days at for presumed UTI. CRP 1.8, Procalcitonin 0.06. leukocytosis resolved. EGD on 08/30 revealed esophageal plaques consistent with candidiasis. She was treated with fluconazole x 14 days. Corpak placed and nutrition consulted for TF recommendations. Pt tolerated TF well. Electrolytes maintained. Nausea was managed with reglan. She was discharged home with [facility] in stable condition. TRANSITIONS OF CARE CRITICAL ISSUES: BAEZ MEDICATION CHANGES: Reglan 5 mg AC and HS Diflucan x 14 days Ergocalciferol 50,000 international unit(s) weekly x 8 weeks Senna BID Miralax daily LAB MONITORING NEEDED: Test TSH When 2 weeks Vitamin D 8 weeks IMAGING FOLLOW-UP: Not applicable LABS AND PROCEDURES PENDING AT DISCHARGE: No No pending results. FOLLOW UP: PCP, GI, ENT, endo CT 06/29/2023 1. Compared to 06/07/2022 exam, prior noted sarcoidosis related peribronchovascular opacities (asymmetric upper lobe predominant pattern) appears similar. However, there are new opacities noted notable in the right middle and lower lobes, some of which may be peribronchovascular, many of which appear centrilobular and possibly interstitial. The distribution in the light of dilated esophagus and known history of GERD, and prior noted waxing and waning opacities raises concern for aspiration related process. Nontuberculous mycobacterial infection not completely excluded. 2. Stable appearing right lower lobe nodules noted at this time (coalescent granulomas?). 3. Redemonstration of intrathoracic lymphadenopathy related to sarcoidosis, with some of the lymph nodes demonstrating intrinsic calcification (increased intrinsic attenuation). Patulous esophagus redemonstrated. 4. Suspect trace pericardial effusion, slightly increased. Prominent left atrium. Op note by Dr. Gutierrez 08/08/23 Pre-op Diagnosis: Pre-Op Diagnosis Codes: * Vocal cord paralysis [J38.00] * Oropharyngeal dysphagia [R13.12] * Lymphedema [I89.0] Post-op Diagnosis: same Procedure(s): Rigid cervical esophagoscopy with balloon dilation Operative indications: Zack Snow is a 63 year old female with history of thyroid cancer treated with surgery and radiation. She has had vocal fold paralysis and progressive dysphagia. She was taken to the operating room for esophageal dilation. We had initially discussed possible cordotomy to improve her glottic airway but she opted to hold off at this time. Findings: 1. Moderately difficult exposure of the cervical esophagus with Dedo laryngoscope as esophagoscope 2. Cricopharyngeus dilated up to 5 johana (23 mm) with the Infinity balloon with no mucosal disruption [facility] 06/01/23 IMPRESSION Zack Snow is a 63 year old female with PMHx/PSHx of HTN, Pericardial effusion, Papillary thyroid carcinoma s/p cholecystectomy who presents for hospital f/u of n/v. Patient was in the hospital after experiencing n/v and diarrhea. CTAP with concern for enteritis and currently on treatment with antibiotics for aspiration pneumonia. Symptoms have subsided since discharge, has SL zofran as needed and taking nexium. Tolerating diet at this time in addition. PLAN Adequate hydration Small frequent meals throughout the day GERD lifestyle modifications discussed Continue PPI Anti-emetics as needed Discussed pursuing colonoscopy pending clinical course Red flags for in person care discussed Follow up with Dr. Conteh as needed EGD 08/31/23 Impression: - Esophageal plaques were found, consistent with candidiasis. - No gross lesions in the stomach. - No gross lesions in the duodenum. - Feeding tube placement was successfully performed. - No specimens collected. [facility] [place] 06/16/23 IMPRESSIONS: Ms. Reis presented with a functional oral phase swallow and a mild pharyngeal phase dysphagia. Pharyngeal phase dysphagia characterized by some generalized pharyngeal weakness, but with no laryngeal penetration or aspiration visualized during today's study. Moderate to severe pharyngeal residue (thin < purees) at the level of the piriforms upon completion of the swallow. While pharyngeal weakness is present, the majority of pharyngeal residue is a result of narrowing at the level of C6 (see image below), causing obstruction of bolus flow. So much so that, for purees, there was absolutely no clearance of the bolus, and only after a dry reswallow was some of the residue cleared. Two instances of patient having to expectorate bolus back to the oral cavity with eventual spittle. The following swallowing maneuvers were trialled in an effort to improve swallowing efficiency: chin tuck; left head rotation; right head rotation; and left head rotation with a chin tuck. Though a small improvement, a left head rotation was deemed most effective at reducing pharyngeal residue, with patient self reporting alleviation of globus sensation. Limited esophageal sweep revealed questionable Zenker's Diverticulum with small amounts of retention at the level of the outpouching. In addition, patient with retention in the distal esophagus, with slowed bolus clearance. Suspect repeat esophageal dilation would help alleviate some of patient's reported dysphagia symptoms. However, would also benefit from some swallow therapy for pharyngeal strengthening. In addition, given history of radiation and patient reporting discomfort/tightness in the neck, recommend considering of consultation for lymphedema therapy. While no aspiration or penetration was seeing during today's exam, given level of pharyngeal residue visualized during today's exam, potential for aspiration after the swallow exists, as a result, in the future, if concern for aspiration persists, recommend completing Fiberoptic Endoscopic Evaluation of Swallowing (FEES), as exam can better mimic a meal in its entirety rather than a MBSS which is more a snapshot in time. CTAP 05/2023: EGD 04/2023: - Z-line regular, 37 cm from the incisors. - Normal esophagus. - Gastritis. Biopsied. - Normal examined duodenum. Biopsied. Bx: A. Small bowel, biopsy: - Duodenal mucosa with no significant diagnostic alteration. - No evidence of celiac disease or duodenitis. B. Stomach, biopsy: - Reactive antral gastropathy with intestinal metaplasia, negative for dysplasia. - Oxyntic mucosa with no significant diagnostic alteration. - No morphologic evidence of Helicobacter pylori organisms ergocalciferol 50,000 unit capsule (VITAMIN D2, DRISDOL) Take 1 capsule by mouth one time a week. fluconazole (DIFLUCAN) 200 mg tablet Take 2 tablets by mouth once daily for 11 doses. guaiFENesin (ROBITUSSIN) 100 mg/5 mL syrup Take 20 mL by mouth every 4 hours as needed for cough. melatonin 3 mg tablet Take 1 tablet by mouth at bedtime as needed for insomnia. metoclopramide HCl (REGLAN) 5 mg tablet Take 1 tablet by mouth before meals and at bedtime. polyethylene glycol 3350 17 gram packet Take 1 Packet by mouth once daily. Dissolve dose in 4 - 8 ounces of liquid and take as directed. psyllium (METAMUCIL) 3.4 gram packet Take 1 Packet by mouth two times a day. senna (SENOKOT) 8.6 mg tab Take 1-2 tablets by mouth two times a day. nutritional supplements (NUTREN 1.5) 0.07 gram-1.5 kcal/mL liqd Enteral/Tube Feedings: Nutren 1.5 or equivalent formula Goal Rate (mL/hr x hours): 50 ml/hr x 22 hours (1100 ml total volume provides 1650 kcals, 74 g protein, 840 ml free water) Water Flush Volume (mL x frequency: at least 30 ml 6x/day for tube patency; up to 135 ml 6x/day for goal hydration triamcinolone (KENALOG) 0.025 % cream Apply to affected area two times a day. fluoride, sodium, (DENTA-GEL) 1.1 % gel 1 application by DENTAL route daily at bedtime. esomeprazole magnesium (NEXIUM) 40 mg packet Take 40 mg by mouth daily before breakfast. Nebulizer Accessories kit Please supply her with the nebulizer kit to product safety technician to her machine albuterol (PROVENTIL) 2.5 mg /3 mL (0.083 %) nebulizer solution Use 3 mL via nebulizer every 4 hours as needed for wheezing/shortness of breath. estradiol (CLIMARA) 0.1 mg/24 hr Apply 1 Patch as directed one time a week. levothyroxine (EUTHYROX) 150 mcg tablet Take 1 tablet by mouth daily before breakfast. budesonide-formoterol (SYMBICORT) 160-4.5 mcg/actuation inhaler Inhale 2 Puffs as instructed twice daily. montelukast (SINGULAIR) 10 mg tablet Take 1 tablet by mouth daily at bedtime. cetirizine (ALL DAY ALLERGY) 1 mg/mL syrup Take 5 mL by mouth once daily. albuterol HFA (PROAIR HFA) 90 mcg/actuation inhaler 1-2 Puffs every 6 hours as needed for wheezing/shortness of breath. triamcinolone acetonide (NASACORT) 55 mcg nasal inhaler Use 2 Sprays in the nose once daily. azelastine (ASTELIN, ASTEPRO) 0.1% nasal spray Use 2 Sprays in each nostril twice daily as needed. ProAir RespiClick 90 mcg/actuation breath activated Take 1-2 puffs every 4 to 6 hours as needed for shortness of breath or wheezing amLODIPine (NORVASC) 2.5 mg tablet Take 2.5 mg by mouth once daily. Aller Xt-Tree Pollen-[place], Mold, Strawberry, and Sulfa (Sulfonamide Antibiotics) FAMILY HISTORY Colon Cancer: No Other Cancers: Yes mother with breast cancer, maternal aunt with pancreatic cancer FAMILY HISTORY Problem Relation Age of Onset Heart Attack Father 66 Cancer Other PAST MEDICAL HISTORY Diagnosis Date Adjustment disorder with anxiety Asthma COPD (chronic obstructive pulmonary disease) (HCC) HTN (hypertension) Papillary thyroid carcinoma (HCC) PAST SURGICAL HISTORY Procedure Laterality Date CATARACT EXTRACTION HX LAPAROSCOPY SURG CHOLECYSTECTOMY REMOVAL OF KIDNEY STONE THYROIDECTOMY TOTAL/COMPLETE Social History Tobacco Use Smoking status: Never Smokeless tobacco: Never Vaping Use Vaping Use: Never used Substance Use Topics Alcohol use: No Drug use: No REVIEW OF SYSTEMS ROS otherwise negative except per HPI PHYSICAL EXAMINATION There were no vitals taken for this visit. General - Normal, healthy, cooperative, in no acute distress Able to interact well. Psych - ORIENTATION: normal to time place, person and situation Mood/Affect: AFFECT AND MOOD: Normal Head/Neuro - Normal size and shape Facial appearance normal Pulmonary - respiratory effort normal Extremities- extremities normal, warm, no cyanosis,no clubbing, and no edema Skin - abnormal lesions not visualized Motor - patient seen sitting with Normal appearing strength and coordination Assessment Impression and Plan # suspected gastroparesis based on symptoms of nausea vomiting # post-surgical hypothyroidism, current TSH is 0.148 # GERD # sarcoidosis # history of papillary thyroid carcinoma s/p total thyroidectomy in 2019 and adjuvant RT # vocal cord paralysis after surgery for the above # oropharyngeal dysphagia, improved after dilation by Dr. Gutierrez # esophageal candidiasis, risk factor includes Symbicort # weight loss # severe protein malnutrition, currently with Corpak-- Nutren 1.5 50 mL/hr for 22 hours # recent hospitalization for aspiration pneumonia # constipation Zack has had worsening of chronic symptoms since increase of her levothyroxine. She recalls unintentional weight loss with each increase of levothyroxine. She now has all the symptoms of gastroparesis although there is no formal diagnosis via a gastric emptying study. Her TSH is 0.148, which is significantly lower compared to 02/2023 before her levothyroxine was increased. I discussed with her that although we see gastroparesis/nausea/vomiting more in patients with hypothyroidism, we also see it in patients with hyperthyroidism. 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 In terms of tube feeds-- she does appear to be taking in adequate amounts orally, so I am not sure that she would require enteral feeding equipment operator intermodal yard especially if her thyroid status can be improved. Therefore, I recommend a nutrition consult to evaluate for caloric counting PO, and to remove Corpak once she reaches adequate PO intake. In terms of medical therapy for gastroparesis, hopefully this will resolve/ improve with decreasing her levothyroxine, but for now, I would decrease Reglan to 3 times a day as needed. - decrease Reglan to 5 mg 3 times a day, if no significant worsening of nausea/vomiting in 1 week, then decrease further to twice a day, and if no significant worsening of nausea/vomiting, then decrease to 5 mg once a day at bed time. - continue bowel regimen with Miralax to avoid constipation - oropharyngeal dysphagia, this has improved significantly with dilation by Dr. Gutierrez Follow up with me in 3 months, virtual or in person ok I spent a total of 60 minutes on the date of the service which included preparing to see the patient, [id number] patient care, completing clinical documentation, obtaining and/or reviewing separately obtained history, performing a medically appropriate examination, counseling and educating the patient/family/caregiver, ordering medications, tests, or procedures, communicating with other HCPs (not separately reported), independently interpreting results (not separately reported), communicating results to the patient/family/caregiver, and care coordination (not separately reported). Sara Horan MD September 07, 2023 12:33 PM Answers submitted by the patient for this visit: Review of Systems Gastro[facility]ology (Submitted on 09/06/2023) Fever: No Chills: Yes Night Sweats: Yes Unitentional Weight Change: Yes A Cough: Yes Difficulty Breathing: Yes Chest Pain: No Belly pain: Yes A feeling of fullness or have belly pain after eating: Yes Food getting stuck in your throat or chest after eating: Yes Nausea - that is, a feeling like you could vomit: No Regurgitation - that is, food or liquid coming back up into your throat or mouth without vomiting, or feel burning behind your breast bone: Yes Loss of appetite: No To throw up or vomit: No Blood in your stools: No Black tarry stools: No Loose or watery stools: No The feeling like you need to empty your bowels right away - that is, feel as if you would have an accident: No Bowel incontinence - that is, have an accident because you cannot make it to the bathroom in time: No Problems with straining while having bowel movements , hard or lumpy stools, or feel unfinished (that you have not passed all your stool): No Pain in rectum or anus during bowel movements: No Problems with jaundice - that is, yellow discoloration of your skin or eyes, now or in the past: No Problems with having to flush the toilet more than two times due to oily stool, or see stool floating with oil: No documented in this encounter [facility] 09-07-2023 Note [facility] 09-02-2023 History of Past i llness Narrative Problem Noted Date Diagnosed Date Resolved Date Acute gastritis without hemorrhage 09/02/2023 09/02/2023 Hypokalemia 08/29/2023 09/02/2023 Hypomagnesemia 08/29/2023 09/02/2023 Acute gastritis without bleeding 08/28/2023 09/02/2023 Hyperlipidemia 06/20/2023 06/20/2023 06/20/2023 documented as of this encounter (statuses as of 09/14/2023) [facility] Miscellaneous Notes* Telephone Encounter - Maite Carrasco RN - 08/03/2023 4:48 PM EST Faxed paperwork on 08/03/23 [facility] Instructions* Patient Instructions* Lisa Villa APRN.MACHINE MAINTENANCE SUPERVISOR - 08/02/2023 12:27 PM EST PATIENT PREOPERATIVE INSTRUCTIONS Mc Gutierrez MD has scheduled you for your procedure at this surgery center: [facility] [place] [facility] Scheduling Office: [phone] --[address] [place] [address]. Please read below carefully for your personalized instructions. Dietary Restrictions: - No solid food after midnight. - You may have 12 ounces of clear liquids (water, clear juices such as apple juice or gatorade) until 4 hours before scheduled arrival at facility. Medications: Unless instructed differently below, stay on all of your prescription medications until your surgery. Approved medications to take the morning of surgery with a sip of water: levothyroxine (SYNTHROID) , amLODIPine (NORVASC) , ALL INHALERS If you start any new medications after today's visit, please contact the surgeon's office. Blood Thinning Medications: - Stop NSAIDS (Ibuprofen, Advil, Aleve, Motrin, Celebrex, Mobic, etc.) 7 days before surgery, as directed by your surgeon. - Stop Aspirin 7 days before surgery, as directed by your surgeon. - Stop Vitamin E, ALL multi-vitamins, herbals and dietary supplements 7 days before surgery. - You may take Tylenol (Acetaminophen) or any of your pain medications that do not contain aspirin or NSAIDS as needed. Important Reminders: - If you are prescribed inhalers for breathing, continue using them. - Candy, mints, and tobacco products are NOT permitted the morning of surgery. - Hearing aids, dentures and glasses may be worn the morning of surgery. - NO jewelry, body piercings, makeup, hairpins or contacts are to be worn the day of surgery. If you develop symptoms such as a fever, cold, or flu, or have other changes to your health within TWO DAYS of scheduled surgery or the morning of surgery, please contact the surgery center above. Personal Belongings: -Please have photo ID and insurance cards. -If you do not have a copy of advance directives on file with us, please bring a copy with you on the day of surgery. - Leave ALL valuables and money at home or with family members. For Outpatient Procedures: - YOU MUST HAVE A RESPONSIBLE SENIOR LOAN PROCESSOR TAKE YOU HOME. A PATENT COUNSEL OR COMPRESSED GAS TESTER CANNOT BE MADE A RESPONSIBLE SENIOR LOAN PROCESSOR. - We recommend that a responsible person stays with you overnight to take care of you. - You cannot stay in a hotel alone after outpatient surgery. You will not be permitted to have yoursurgery, if you do not have someone to take care of you. Arrival Time for Surgery: - To obtain your arrival time for surgery, call your physician's office the day before your surgery. - If your surgery is scheduled for Monday, call the Monday before. Your surgeon s shank threader will tell you what time to call the office. - If you have not reached the departmental shank threader by 5 P.M., call [phone] after 5 P.M. the day before your surgery. Please be aware that emergency situations arise, which may delay or change your surgical time. If this happens, we will notify you as soon as possible and regret any inconvenience. If you already have an Advance Directive, please fax a copy to [phone] or email to for it to be added to your chart. If you do not have an Advance Directive, you can find the appropriate form and more information at [email or web address]. We recommend that youcomplete the Advance Directive form found on the website and bring it with you the day of your surgery. It can be witnessed and scanned into your chart that day. documented in this encounterThe [facility]03-[facility]24 History and physical note * Lisa Villa APRN.CNP - 08/02/2023 11:51 AM EST SERVICE DATE: 08/02/2023 SERVICE TIME: 12:47 PM Surgeon: Mc Gutierrez MD Type of surgery: ESOPHAGOSCOPY, RIGID, TRANSORAL; WITH BALLOON DILATION (LESS THAN 30 MM DIAMETER) Patient scheduled for surgery on 08/08/2023 Surgery Location: [facility] BP 139/85[MAP 97- recheck[ Pulse 97 Temp 97.6 Resp 16 Ht 5' 6 (1.68m) Wt 111 lb 12.4 oz (50.7kg) SpO2 100% BMI 18.05 kg/(m^2). CC: Patient presents with: Pre-Op Visit HPI: Zack Snow is a 63 year old year old FEMALE with recent CPE completed on 07/20/2023 located in [facility] > Pulmonary & Critical Care Medicine by Mel Palacio MD.Encounter reviewed with patient. Per 07/20/2023 PULM Office Visit: Plan: - continue Symbicort 160-4.5 2 puffs BID; reminded to rinse mouth well after use and advised spaceruse- has albuterol to use prn, currently, using proair respiclick using twice a day since February using it consistently. - continue Singulair nightly; discussed BBW and potential side effects - she is following closely with ENT - would likely benefit from speech therapy - she should get back to routine follow up with Optho and we may need to consider updating echo given her sarcoidosis - we will plan for CT chest in 3 months to further evaluate current findings in RLL which could still be lingering from her pneumonia - she has a nebulizer machine at home. Needs tubing; I have sent script. Advised to use albuterol vials/nebs leading up to procedure date. She will let me know if there are any issues getting supplies needed for nebulizer. planned for balloon dilation of esophagus on 08/08/2023; duration about 1 hour with general anesthesia. Currently her pfts are normal, cat scan shows near resolution of her most recent pneumonia about2 months ago. She is clinically feeling relatively well, although using albuterol twice a day. The esophageal dilation is important overall and should likely not be delayed. The patient has a 1.6 % risk (low risk) of a post-operative pulmonary complication, specifically failed extubation or prolonged mechanical ventilation (including atelectasis, infection, exacerbation of underlying chronic lung disease, and bronchospasm), for the proposed surgery based on published risk assessments. This risk is not prohibitive for the proposed surgery from a pulmonary standpoint. The risk must be accepted by both the patient and the surgeon. In order to minimize the risk of complications and optimize pulmonary status, we recommend the following: I have asked her to start using the albuterol in the nebulzier every 4 hours the 2-3 days leading up to her procedure date to just provide some additional optimization Recommend scheduled duonebs during her stay post operatively and if staying overnight She will continue current regimen until then Discussed with the patient who agrees to the plan Return to the office in 3 months or sooner Mel Palacio MD Patient currently denies any acute changes in breathing; she denies CP or is in any apparent distress. PAST MEDICAL HISTORY Diagnosis Date Adjustment disorder with anxiety HTN (hypertension) Papillary thyroid carcinoma (HCC) PAST SURGICAL HISTORY Procedure Laterality Date CATARACT EXTRACTION HX LAPAROSCOPY SURG CHOLECYSTECTOMY REMOVAL OF KIDNEY STONE THYROIDECTOMY TOTAL/COMPLETE FAMILY HISTORY Problem Relation Age of Onset Heart Attack Father 66 Cancer Other Social History Tobacco Use Smoking status: Never Smokeless tobacco: Never Vaping Use Vaping Use: Never used Substance Use Topics Alcohol use: No Drug use: No Nebulizer Accessories kit Please supply her with the nebulizer kit to product safety technician to her machine albuterol (PROVENTIL) 2.5 mg /3 mL (0.083 %) nebulizer solution Use 3 mL via nebulizer every 4 hours as needed for wheezing/shortness of breath. estradiol (CLIMARA) 0.1 mg/24 hr Apply 1 Patch as directed one time a week. levothyroxine (EUTHYROX) 150 mcg tablet Take 1 tablet by mouth daily before breakfast. budesonide-formoterol (SYMBICORT) 160-4.5 mcg/actuation inhaler Inhale 2 Puffs as instructed twice daily. montelukast (SINGULAIR) 10 mg tablet Take 1 tablet by mouth daily at bedtime. cetirizine (ALL DAY ALLERGY) 1 mg/mL syrup Take 5 mL by mouth once daily. albuterol HFA (PROAIR HFA) 90 mcg/actuation inhaler 1-2 Puffs every 6 hours as needed for wheezing/shortness of breath. triamcinolone acetonide (NASACORT) 55 mcg nasal inhaler Use 2 Sprays in the nose once daily. azelastine (ASTELIN, ASTEPRO) 0.1% nasal spray Use 2 Sprays in each nostril twice daily as needed. ProAir RespiClick 90 mcg/actuation breath activated Take 1-2 puffs every 4 to 6 hours as needed forshortness of breath or wheezing amLODIPine (NORVASC) 2.5 mg tablet Take 2.5 mg by mouth once daily. esomeprazole magnesium (NEXIUM) 40 mg packet Take 40 mg by mouth daily before breakfast. ALLERGIES Allergen Reactions Aller Xt-Tree Polle* Unknown Mold Unknown Strawberry Unknown OAK TREE ALLERGY REVEALED FROM ALLERGY TESTING Sulfa (Sulfonamide * GI Upset REVIEW OF SYSTEMS GENERAL: No weight loss, malaise or fevers RESPIRATORY: See HPI CARDIOVASCULAR: Negative for chest pain, leg swelling, CHF or palpitations GI: No nausea, vomiting, or diarrhea PHYSICAL EXAMINATION: Alert and oriented, No acute distress, thin appearance, soft voice Lungs clear to auscultation. No wheezing, rhonchi, rales. RRR without murmur, gallop, or rubs. No ectopy BS present. Laboratory and Testing: Lab Value Units Date High Low HB 12.5 g/dL 03/01/2023 15.5 11.5 HCT 37.6 % 03/01/2023 46.0 36.0 WBC 6.04 k/uL 03/01/2023 11.00 3.70 PLT 231 k/uL 03/01/2023 400 150 NA 141 mmol/L 03/01/2023 144 136 K 3.7 mmol/L 03/01/2023 5.1 3.7 GLUC 108 mg/dL 03/01/2023 99 74 BUN 17 mg/dL 03/01/2023 21 7 CREAT 0.75 mg/dL 03/22/2023 0.96 0.58 CREAT 1.10 mg/dL 03/01/2023 1.4 0.7 PTSEC No results within date range. INR No results within date range. APTT No results within date range. ALT 24 U/L 03/01/2023 38 7 AST 24 U/L 03/01/2023 35 13 TBILI 0.4 mg/dL 03/01/2023 1.3 0.2 TSH 2.630 mIU/L 03/01/2023 4.200 0.270 Lab Value Units Date High Low HCGQT No results within date range. UHCG No results within date range. HCG, BODY* No results within date range. Lab Value Units Date High Low ABORHD No results within date range. ABSCREEN No results within date range. No results found for: HBA1C Recent Results (from the past 8760 hour(s)) ECG COMPLETE Collection Time: 08/02/23 12:07 PM Result Value Ventricular Rate 96 Atrial Rate 96 P-R Interval 134 QRS Duration 76 QT Interval 392 QTC Calculation (Bazett) 495 Calculated P [place] 71 Calculated R [place] 77 Calculated T [place] 77 Impression NORMAL SINUS RHYTHM POSSIBLE LEFT ATRIAL ENLARGEMENT PROLONGED QT INTERVAL OR TU FUSION, CONSIDER HYPOKALEMIA ABNORMAL ECG 05/27/2020 ECHO: CONCLUSIONS: - Technically difficult exam due to body habitus. - Exam indication: Pulmonary Sarcoidosis - The left ventricle is normal in size. Left ventricular systolic function is normal. EF = 58 5% (2D biplane) Normal left ventricular diastolic function. GLS is normal at -17.7% - The right ventricle is normal in size. Right ventricular systolic function is normal. - Exam was compared with the prior echocardiographic exam performed on 03/25/2019. There is no significant change. 07/20/2023 Spirometry View Pulmonary Function Testing [ID [id number]] IMPRESSION: Spirometry is normal. The diffusing capacity corrected for hemoglobin is normal. 06/29/2023 CT CHEST: IMPRESSION: 1. Compared to 06/07/2022 exam, prior noted sarcoidosis related peribronchovascular opacities (asymmetric upper lobe predominant pattern) appears similar. However, there are new opacities noted notable in the right middle and lower lobes, some of which may be peribronchovascular, many of which appear centrilobular and possibly interstitial. The distribution in the light of dilated esophagus and known history of GERD, and prior noted waxing and waning opacities raises concern for aspiration related process. Nontuberculous mycobacterial infection not completely excluded. 2. Stable appearing right lower lobe nodules noted at this time (coalescent granulomas?). 3. Redemonstration of intrathoracic lymphadenopathy related to sarcoidosis, with some of the lymph nodes demonstrating intrinsic calcification (increased intrinsic attenuation). Patulous esophagus redemonstrated. 4. Suspect trace pericardial effusion, slightly increased. Prominent left atrium. RESULT: Limitations: Minimal cardiac pulsation related motion noted. Ict Developer (topogram) images: No additional findings. Lines, tubes, and devices: None. Lung parenchyma: On lung windows, On lung windows, mostly clear central airways noted. Redemonstration of localized severe stenosis of the right upper lobe superior subsegment bronchus, image 51 series 3 associated with poststenotic distally. There is associated peribronchovascular soft tissue densities/nodules and more peripherally located micronodules some of which appear confluent, most likely demonstrating perilymphatic nodular distribution extending from central portion of the lung to periphery, with irregular opacification, demonstrating some degree of architectural distortion with less extensive changes noted on the left. Redemonstration of right lower lobe superior segment irregular nodular consolidative lesion abutting the right major fissure, measuring about 11 x 7 mm on image 97. The upper lung findings appear mostly similar, but subtle increase in nodular opacities are noted within superior segment of right lower lobe, for example image 95 and involving over half the volume of the middle lobe images 105, 122-156 including curvilinear denser opacification area image 142. Multiple mucous plugs are noted in the lingula. Within right lower lobe, localized heterogeneous opacities are noted, images 127, 1 32-154 some of which may be centrilobular, some possibly representing intralobular interstitial markings. It should be noted that there were micronodular opacities on the right noted on 06/07/2022 exam which are not visible on current or immediate prior study. Pleural space: No pleural effusion. No pneumothorax. Lower neck, lymph nodes, and mediastinum: Thyroidectomy changes noted. No progressive axillary or supraclavicular lymphadenopathy meeting size criteria noted. Intrathoracically, redemonstration of bilateral mediastinal and hilar/perihilar lymph nodes/lymphadenopathy, with some of the inferior para-aortic/subaortic level lymph nodes demonstrating increased attenuation (85 Hounsfield units) suggesting presence of intrinsic calcifications (previously measuring 57 Hounsfield units). This is not unexpected for patient with sarcoidosis. Heart, pericardium, and thoracic vessels: No appreciable atherosclerotic calcifications noted, including coronary arteries. Normal caliber aorta and pulmonary trunk noted. Left atrium appears prominent. Trace pericardial effusion, slightly increased. 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 Tortuous descending aorta. Patulous esophagus demonstrating air-fluid level at mid/lower esophageal level. Bones and soft tissues: Chest wall soft tissues are unremarkable. On bone window images, degenerative changes of the spine noted. Scoliosis. Sternum appears mildly osteopenic. Probably benign, stable, focal sclerotic lesion of posterior T3 vertebra. Upper abdomen: Cholecystectomy clips. Hyperdense material within the splenic flecture or possibly contrast-containing splenic flexure diverticulum. Otherwise stable upper abdominal visceral structures. METS: Climb a flight of stairs or walk up a hill (5.50 METs) Patient denies any chest pain or undue shortness of breath with the above physical activity. Climbs stairs daily at home ASSESSMENT: Vocal cord paralysis Assessment: Right vocal cord paralysis, vocal cord surgery on hold until after EGD with dilation Follows with ENT HTN (hypertension) Assessment: Managed with med Date: BP: 08/02/2023 71/43[water provided]- Pt. is Asymptomatic 08/02/2023 139/85 [MAP 97- recheck] 07/20/2023 156/94 Monitored by PCP Pulmonary sarcoidosis (HCC) Assessment: Follows with Pulmonology, last visit 07/20/2023 for PULM risk assessment completed Asthma Assessment: managed with montelukast (SINGULAIR) and inhalers Follows with PULM, stable GERD (gastroesophageal reflux disease) Assessment: Managed with med prn Hypothyroidism Assessment: s/p thyroidectomy, Stable with medication. Adjustment disorder with anxiety Assessment: Stable. ANESTHESIA FINDINGS: Intubation History: No history of difficult intubation Significant Anesthesia Considerations: None Airway Exam: General: Normal appearance Mallampati Score is CLASS III ULBT: Class II - Lower incisors can bite the upper lip below the adelso line Neck: Normal appearance and function, Distance from hyoid to mentum during neck extension is at least 3 finger breaths Mouth: Normal tongue size and Mouth opening greater than 2 finger breaths Dentition: Intact and Caps/crowns Airway History: No abnormal airway history STOP BANG Score: Criteria: Hypertension Age over 50 (63 year old) Score = 2 PLAN This patient is optimally prepared for surgery. CONSULTS: Patient does not require consults for optimization at this time. The Following Tests/Procedures Have Been Initiated: Labs not indicated per [facility] protocol, EKG not indicated per [facility] protocol Planned Anesthetic: Per anesthesia choice Instructions Given to Patient: Instructions located in the after visit summary. Patient given verbal and written preop instructions and voices comprehension and compliance. SIGNATURE: Lisa Villa APRN.CNP PATIENT NAME: Zack Snow DATE: August 02, 2023 TIME: 11:51 AM documented in this encounterThe [facility]02-22-2024 [facility] History of Present illness Narrative* Mel Palacio MD - 07/20/2023 10:11 AM EST Images from the original note were not included. Pulmonary Office Visit Progress Note COMMUNICATION WILL BE SENT VIA SHARED MEDICAL RECORDS OR US MAIL. CC: Asthma HPI: Zack Snow is a 63 year old year old female who presents for follow-up of asthma, last seen in the office 02/15/23 with [place]. Since seeing us last, she has continued to have issues with her dysphagia. End of 2022 she ended uphospitalized and was told she had aspiration pneumonia. Her voice continues to be lower in volume. She is following closely with ENT and they are planning to do a dilation to help with her dysphagia.It sounds like she is likely aspirating even her saliva and this is triggering her inflammation her airway and making her asthma symptoms worse. Her GI issues/dysphagia/aspiration got worse about 1 year ago Lost her mom in October 2022 due to cancer. She put her own health aside.This past year getting worse. She had dilation in 2019 which has helped her. Her ENT physician would like to work on vocal cords as well given her right-sided paralyzed vocal cord, however, she would like to hold off on doing toomuch at once and wants to do the throat stretching first. The anesthesia team is waiting for pulmonary evaluation and clearance given her most recent admission. She was also in the emergency department earlier this month on her way home from her CAT scan at [facility]. It sounds like she was coughing to the point of vomiting but it is hard to know if she aspirated first that triggered the coughing and ultimately the vomiting but I suspect that there is a combination occurring. This is affecting her asthma. The sarcoid is likely stable based on the imaging that I see. Her PFTs today remain normal. Overallher CAT scan is improved with respect to the pneumonia that she had end of last year She has a right paralyzed vocal cord Tolerating Symbicort at 2 puffs BID with spacer. Using proair respiclick using every day, twice a day. Since February using it consistently Drive home from CT chest 06/29: Zack Snow is a 63 y.o. female who was admitted to the hospital with respiratory distress and dysphagia. Dysphagia to solids, history of radiation and dysphagia. EGD on visual inspection concerning for candidiasis. Empiric treatment with fluconazole started. Additionally, respiratory distress may have been chemical irritation with the possibility of aspiration and therefore short course of prednisone had been started. Patient symptoms substantially improved through the hospital course, and patient was subsequently discharged. She states that she follows up with gastroenterology at [facility] and is scheduled to have a elective dilation done for known dysphagia. Pt was discharge in a s table condition. PAST MEDICAL HISTORY Diagnosis Date Adjustment disorder with anxiety HTN (hypertension) Papillary thyroid carcinoma (HCC) PAST SURGICAL HISTORY Procedure Laterality Date CATARACT EXTRACTION HX LAPAROSCOPY SURG CHOLECYSTECTOMY REMOVAL OF KIDNEY STONE THYROIDECTOMY TOTAL/COMPLETE FAMILY HISTORY Problem Relation Age of Onset Heart Attack Father 66 Cancer Other Social History Tobacco Use Smoking status: Never Smokeless tobacco: Never Vaping Use Vaping Use: Never used Substance Use Topics Alcohol use: No Drug use: No Current Outpatient Medications Medication Sig Dispense Refill estradiol (CLIMARA) 0.1 mg/24 hr Apply 1 Patch as directed one time a week. levothyroxine (EUTHYROX) 150 mcg tablet Take 1 tablet by mouth daily before breakfast. 90 tablet 1 budesonide-formoterol (SYMBICORT) 160-4.5 mcg/actuation inhaler Inhale 2 Puffs as instructed twice daily. 1 Each 5 montelukast (SINGULAIR) 10 mg tablet Take 1 tablet by mouth daily at bedtime. 30 tablet 5 cetirizine (ALL DAY ALLERGY) 1 mg/mL syrup Take 5 mL by mouth once daily. 118 mL 2 albuterol HFA (PROAIR HFA) 90 mcg/actuation inhaler 1-2 Puffs every 6 hours as needed for wheezing/shortness of breath. 1 Each 1 triamcinolone acetonide (NASACORT) 55 mcg nasal inhaler Use 2 Sprays in the nose once daily. 10.8 mL 5 azelastine (ASTELIN, ASTEPRO) 0.1% nasal spray Use 2 Sprays in each nostril twice daily as needed. 30 mL 5 ProAir RespiClick 90 mcg/actuation breath activated Take 1-2 puffs every 4 to 6 hours as needed forshortness of breath or wheezing 1 Each 2 amLODIPine (NORVASC) 2.5 mg tablet Take 2.5 mg by mouth once daily. 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 270 mL 1 esomeprazole magnesium (NEXIUM) 40 mg packet Take 40 mg by mouth daily before breakfast. 90 Packet 1 famotidine (PEPCID) 20 mg tablet Take 1 tablet by mouth twice daily. 60 tablet 2 No current facility-administered medications for this visit. ALLERGIES Allergen Reactions Aller Xt-Tree Polle* Unknown Mold Unknown Strawberry Unknown OAK TREE ALLERGY REVEALED FROM ALLERGY TESTING Sulfa (Sulfonamide * GI Upset REVIEW OF SYSTEMS GENERAL: No weight loss, malaise or fevers . Starting to gain or maintain some weight again HEENT: Negative for frequent or significant headaches NECK: Negative for pain or significant neck swelling RESPIRATORY: see HPI CARDIOVASCULAR: Negative for chest pain, leg swelling or palpitations GI: No nausea, vomiting, or diarrhea : No history of dysuria or frequency MUSCULOSKELETAL: negative SKIN: Negative for lesions, rash, and itching . PSYCH: Negative for sleep disturbance, mood disorder and recent psychosocial stressors The remainder of the review of systems is negative. PHYSICAL EXAMINATION: BP 156/94 Pulse 103 Wt 110 lb 14.3 oz (50.3kg) SpO2 100[RA]% General appearance: well appearing, in no acute distress, alert Skin: skin color normal, no rashes or lesions Eyes: Anicteric sclera. Extraocular movements are intact. Ears: External ears normal, canals clear Nose: Nasal mucosa appears normal Oropharynx: lips, mucosa, and tongue normal, oropharynx normal Neck: Supple, no adenopathy Respiratory: lungs clear to auscultation, no wheezing or rhonchi Cardiovascular: S1, S2. RRR without murmur. No lower extremity edema Gastrointenstinal: Abdomen soft, non-tender Musculoskeletal: Extremities normal. No deformities or skin discoloration. Neuro: Gait normal. Sensation grossly intact. DATA: I personally reviewed the labs, PFTs and radiographs PFTs: 07/20/2023 I have personally reviewed and my interpretation is as follows: Spirometry is normal. DLCO is normal. Chest CT: 06/29/2023 1. Compared to 06/07/2022 exam, prior noted sarcoidosis related peribronchovascular opacities (asymmetric upper lobe predominant pattern) appears similar. However, there are new opacities noted notable in the right middle and lower lobes, some of which may be peribronchovascular, many of which appear centrilobular and possibly interstitial. The distribution in the light of dilated esophagus and known history of GERD, and prior noted waxing and waning opacities raises concern for aspiration related process. Nontuberculous mycobacterial infection not completely excluded. 2. Stable appearing right lower lobe nodules noted at this time (coalescent granulomas?). 3. Redemonstration of intrathoracic lymphadenopathy related to sarcoidosis, with some of the lymph nodes demonstrating intrinsic calcification (increased intrinsic attenuation). Patulous esophagus redemonstrated. 4. Suspect trace pericardial effusion, slightly increased. Prominent left atrium. CT chest 11/18/2021 1. Right greater than left upper lung predominant perilymphatic distribution nodular pattern is noted again, demonstrating mild progression compared to more remote studies from 2019. Findings are most likely related to sarcoidosis, including right lower lobe and middle lobe nodular consolidative lesions. Continued attention on follow-up recommended (in 6 months, as the lesions measure slightly larger and neoplasm is not completely excluded, especially right lower lobe lesion). 2. Intrathoracic lymphadenopathy, likely related to sarcoidosis. 3. Patulous esophagus redemonstrated. Chest CT: 03/04/2021 1. Essentially stable multiple peribronchovascular and perilymphatic nodules predominantly in upper lungs in keeping with a granulomatous process such as sarcoidosis. No new lung nodules have developed. 2. Unchanged borderline enlarged lymph nodes in bilateral pio and in the mediastinum in a pattern consistent with sarcoidosis. Chest CT: 09/03/2020 1. Again, right greater than left upper lobe predominant peribronchial vascular and peripheral opacities subpleural nodular lesions indicating perilymphatic nodular distribution are redemonstrated, similar to 02/13/2020 but minimally worsened compared to remote prior study dated 07/10/2018. These findings are most suggestive of sarcoidosis. Other etiologies/etiologies are less likely. 2. Tiny nodular lesions medial subsegment of middle lobe may be new. Attention on follow-up recommended. 3. Mediastinal and bilateral hilar lymphadenopathy redemonstrated, more typical of sarcoidosis than neoplastic/metastatic disease. CT chest 02/04/2020 No significant interval changes since 05/17/2019. Stable peribronchovascular nodular opacities, predominantly in the right upper lobe along with additional stable lung nodules bilaterally. The findings are most likely inflammatory/infectious process particularly sarcoidosis given prior tissue sampling yielding negative result for malignant cells. Continued attention on follow-up is recommended. Stable borderline to mildly enlarged hilar lymph nodes. No new or progressive thoracic lymphadenopathy. 05/17/19 CT chest 1. Asymmetric, mainly right upper lobe peribronchovascular opacities noted, with a few peripheral nodules and subpleural opacities bell-fissural nodule noted (indicating perilymphatic distribution), along with symmetric bilateral mediastinal and hilar prominent lymph nodes. In the light of multiple granulomas noted on bronchoscopic brushings and aspirate samples, sarcoidosis is considered. Neoplastic process, lymphoproliferative or metastatic, less likely but probably not totally excluded. Continued attention on follow-up recommended. 2. No enlarging lymph nodes noted. 3. No new nodules. 02/11/19 CT chest Stable to slight decrease in size of scattered indeterminant pulmonary nodules measuring up to 18 mm, most extensive in the right upper lobe, and stable borderline thoracic and hilar lymphadenopathy. These findings are indeterminate and may be infectious or inflammatory in nature although they may also in part be related to the patient's suspected diagnosis of sarcoidosis. Chest CT: 10/10/18 Stable to minimally increasing size of multiple pulmonary nodules bilaterally, predominantly in the right upper lobe measuring up to 1.9 cm as detailed above. The findings are indeterminate in etiology, and neoplastic process cannot be excluded. Bronchoscopy has been scheduled tomorrow for further evaluation. No progressive intrathoracic lymphadenopathy Lung parenchyma and pleura: The central airways are patent without endobronchial lesion. Scattered calcified granulomas noted, for example in the left upper lobe (image 45). Again noted are multiple nodular opacities bilaterally, predominantly in the right upper lobe, stable to minimally increased in size, for reference: 1.6 x 1.9 cm bronchocentric nodular in the right upper lobe (image 77), previously 1.5 x 1.7 cm; 1.7 x 1.9 cm irregular shaped bronchocentric nodule in the right upper lobe (image 96), previously 1.6 x 1.8 cm; 1 cm nodule in the suprahilar right upper lobe (image 100), unchanged; 7 mm perifissural right lower lobe nodule (image 146), likely lymph node; 6 mm perifissural right lower lobe nodule (171), stable. 6 mm left apical nodule (images 31); 5 mm left upper lobe nodule containing calcification (image 46). Nodular opacity in the peripheral right upper lobe are likely atelectasis. There is a scarring/atelectasis in the right mid lobe and lingula There is no new nodule identified. No pleural effusion or pneumothorax is present. Thoracic inlet, heart, and mediastinum: Postsurgical changes of thyroidectomy. The intrathoracic lymph nodes are stable noting borderline sized lymph nodes, for example a 1 cm right paratracheal lymph node image 86), 1 cm AP window lymph node (image 108), likely reactive in nature. 07/10/18 CT chest PFT: 11/16/2018 I have personally reviewed and my interpretation is as follows: Spirometry with no obstruction, suggests restriction, mild reduction in DLCO DLCO: 15.38, 69% 10/11/18 EBUS - Rapid On-Site Evaluation (BRIANA): Preliminary cytology was suggestive of non-necrotic granulomatous tissue in node level 7 and preliminary cytology was non-diagnostic in node level 4R, node level 11L and node level 12L (final results are pending). FINAL DIAGNOSIS A. BRONCHIAL, LEFT UPPER LOBE BRUSHING (THINPREP,SMEARS AND CELL BLOCK) Negative for malignant cells. Granulomas present. See comment. B. BRONCHIAL, #22 EBUS,TBNA,11L FINE NEEDLE ASPIRATE (THINPREP, SMEARS AND CELL BLOCK) Negative for malignant cells. Limited lymphoid sample and rare collection of histiocytes. C. BRONCHIAL, #22 EBUS,TBNA,12L FINE NEEDLE ASPIRATE (THINPREP, SMEARS AND CELL BLOCK) Non-diagnostic aspirate sample Not a lymphoid sample. Bronchial cells. D. BRONCHIAL, #22 EBUS,TBNA,STATION 7 FINE NEEDLE ASPIRATE (THINPREP, SMEARS AND CELL BLOCK) Negative for malignant cells. Limited lymphoid sample. Granulomas present. See comment. E. BRONCHIAL, #22 EBUS,TBNA,4R FINE NEEDLE ASPIRATE (THINPREP, SMEARS AND CELL BLOCK) Not a lymphoid sample. Granulomas present. See comment. F. LEFT UPPER LOBE BRONCHOALVEOLAR LAVAGE Negative for malignant cells. Alveolar macrophages. Comment: The etiology of he granulomas cannot be ascertained from the cytology specimens. Clinical correlation and correlation with microbiologic studies is recommended. The cell blocks on A and B are acellular. An addendum will follow pending AFB and GMS stains to be done on the cell block from specimen E. E: GMS and AFB stains are non-contributory as no granulomas are present on there cut stained slides. BAL Results for ZACK SNOW ( ) as of 11/16/2018 08:43 Ref. Range 10/11/2018 13:00 RBC, BA Lavage Latest Units: /uL 2,895 Total Nucleated Cells, BAL Latest Units: /uL 27 Neut%, BA Lavage Latest Ref Range: 0 - 1 % 2 (H) Lymph%, BA Lavage Latest Ref Range: 6 - 8 % 16 (H) Mifflin%, BA Lavage Latest Units: % 1 Macro%, BA Lavage Latest Units: % 81 Slide Number BA Lavage Unknown [id number] ECHO 05/27/2020 - Technically difficult exam due to body habitus. - Exam indication: Pulmonary Sarcoidosis - The left ventricle is normal in size. Left ventricular systolic function is normal. EF = 58 5% (2D biplane) Normal left ventricular diastolic function. GLS is normal at -17.7% - The right ventricle is normal in size. Right ventricular systolic function is normal. - Exam was compared with the prior echocardiographic exam performed on 03/25/2019. There is no significant change. Swallow evaluation Impression / Recommendation: Based on MBS assessment performed on 12/18/2018, patient presents withpharyngeal phase and suspected esophageal dysphagia as characterized by findings below. 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 Assessment: -Dyspnea on exertion - this has worsened over the past year, but more so since February. The worsening is likely related to her recurring and chronic aspiration that seems to have gotten significantlyworse. She is feeling the need for albuterol twice a day since February. -Asthma, moderate persistent, more recently less controlled - today PFTs normal. On Symbicort -Pulmonary sarcoidosis -Allergic rhinitis, intermittent -History of papillary thyroid cancer s/p thyroidectomy - dysphagia - significant and causing significant aspiration - aspiration -Progressive weight loss, underweight - has been gaining and maintaining a bit more - right vocal vord paralysis Plan: - continue Symbicort 160-4.5 2 puffs BID; reminded to rinse mouth well after use and advised spaceruse - has albuterol to use prn, currently, using proair respiclick using twice a day since February using it consistently. - continue Singulair nightly; discussed BBW and potential side effects - she is following closely with ENT - would likely benefit from speech therapy - she should get back to routine follow up with Optho and we may need to consider updating echo given her sarcoidosis - we will plan for CT chest in 3 months to further evaluate current findings in RLL which could still be lingering from her pneumonia - she has a nebulizer machine at home. Needs tubing; I have sent script. Advised to use albuterol vials/nebs leading up to procedure date. She will let me know if there are any issues getting supplies needed for nebulizer. See below -planned for balloon dilation of esophagus on 08/08/2023; duration about 1 hour with general anesthesia. Currently her pfts are normal, cat scan shows near resolution of her most recent pneumonia about 2 months ago. She is clinically feeling relatively well, although using albuterol twice a day. Theesophageal dilation is important overall and should likely not be delayed. The patient has a 1.6 % risk (low risk) of a post-operative pulmonary complication, specifically failed extubation or prolonged mechanical ventilation (including atelectasis, infection, exacerbation of underlying chronic lung disease, and bronchospasm), for the proposed surgery based on published risk assessments. This risk is not prohibitive for the proposed surgery from a pulmonary standpoint. The risk must be accepted by both the patient and the surgeon. In order to minimize the risk of complications and optimize pulmonary status, we recommend the following: I have asked her to start using the albuterol in the nebulzier every 4 hours the 2-3 days leading up to her procedure date to just provide some additional optimization Recommend scheduled duonebs during her stay post operatively and if staying overnight She will continue current regimen until then Discussed with the patient who agrees to the plan Return to the office in 3 months or sooner Mel Palacio MD Pulmonary & Critical Care Medicine [facility] [place] July 20, 2023 10:12 AM I spent a total of 45 minutes on the date of the service which included preparing to see the patient, [id number] patient care, completing clinical documentation, obtaining and/or reviewing separately obtained history, performing a medically appropriate examination, counseling and educating the pat ient/family/caregiver, ordering medications, tests, or procedures, communicating with other HCPs (not separately reported), independently interpreting results (not separately reported), and communicating results to the patient/family/caregiver. documented in this encounterThe [facility]02-[facility]-2024 NoteHNO ID: [id number] Author: JLUIETTE HARPER RRT Service: ? Author Type: Registered Resp Therapist Type: Progress Notes Filed: 07/20/2023 09:59 Note Text: PULM FUNCTION SMARTBLOCK: Provider: Mel Palacio MD Spirometry: 1 [facility] of Present illness Narrative * Juliette Harper RRT - 07/20/2023 9:58 AM EST PULM FUNCTION SMARTBLOCK: Provider: Mel Palacio MD Spirometry: 1 DLCO: 1 documented in this encounterThe [facility]02-01-2024 [facility] of Past illness Narrative* Problem Noted Date Diagnosed Date Resolved Date Hyperlipidemia 06/20/2023 06/20/2023 06/20/2023 documented as of this encounter (statuses as of 07/05/2023) [facility] of Past illness Narrative* Problem Noted Date Diagnosed Date Resolved Date Hyperlipidemia 06/20/2023 06/20/2023 06/20/2023 documented as of this encounter (statuses as of 07/05/2023) [facility] of Past illness Narrative* Problem Noted Date Diagnosed Date Resolved Date Hyperlipidemia 06/20/2023 06/20/2023 06/20/2023 documented as of this encounter (statuses as of 07/20/2023) [facility] of Past illness Narrative* Problem Noted Date Diagnosed Date Resolved Date Hyperlipidemia 06/20/2023 06/20/2023 06/20/2023 documented as of this encounter (statuses as of 07/20/2023) [facility] of Past illness Narrative* Problem Noted Date Diagnosed Date Resolved Date Hyperlipidemia 06/20/2023 06/20/2023 06/20/2023 documented as of this encounter (statuses as of 08/02/2023) [facility] of Past illness Narrative* Problem Noted Date Diagnosed Date Resolved Date Hyperlipidemia 06/20/2023 06/20/2023 06/20/2023 documented as of this encounter (statuses as of 08/04/2023) [facility] of Past illness Narrative* Problem Noted Date Diagnosed Date Resolved Date Hyperlipidemia 06/20/2023 06/20/2023 06/20/2023 documented as of this encounter (statuses as of 08/18/2023) [facility]01-19-2024 [facility]24 [facility]-20[facility]12-[facility]23 Miscellaneous Notes* Telephone Encounter - Vivian Hirsch RN - 05/24/2023 3:07 PM EST Left voice message regarding results and advised to call office with any further questions. Please enter recall EGD in 1 yr with gastric mapping Thank you Vivian Hirsch RN * Telephone Encounter - Vivian Hirsch RN - 05/24/2023 3:07 PM EST ----- Message from Sharri Conteh DO sent at 05/24/2023 2:15 PM EST ----- Please review path from EGD with pt which reveals normal small bowel mucosa and reactive gastropathy with IM in the stomach but negative for HP. Her symptoms seem improved since she was started on PPI. She needs colonoscopy at some point. Repeat EGD in 1 yr with gastric mapping. Thanks cl documented in this encounterThe [facility]10-25-2023 History of Present illness Narrative* Sharri Conteh DO - 03/22/2023 10:20 AM EDT Images from the original note were not included. Chief Compliant: Consultation requested by Dr. Natalia Torres MD for an opinion regarding nausea, vomiting, abd pain, diarrhea, wt loss. . My final recommendations will be communicated back to the requesting physician by way of shared Medical record or letter to requesting physician via US mail. HPI: Zack Snow is a 62 year old female with PMH significant for papillary thyroid ca s/p thyroidectomy, acquired hypothyroid, adjustment d/o, anxiety, HTN, pulmonary sarcoidosis, vocal cord paralysis who presents for nausea, vomiting, abd pain, diarrhea, wt loss. Symptoms started acutely in 02/18. Prior to this she reports significant stressors in her life-lost her mother to cancer this past summer.Describes as nausea, non-bloody emesis, generalized abd pain, continuous watery diarrhea at first initially when symptoms started. Lost about 20-25 lbs initially. No fevers, chills, GERD, dysphagia, sob, cp, palpitations, constipation, signs of bleeding. Has been seen in ED 3 times since onset of sy mptoms-at OSH so limited records available but pt reports that she was dx with colitis. Started on cipro/flagyl but only took two days. Started on reglan with some relief but incomplete-no longer taking. Started on nexium which she is still taking. Feels like this is helping her the most. No nausea/vomiting for the last 2 weeks. Diarrhea also improved-now down to 4 looser bm per day on average. Has been able to eat more since starting on the nexium. Has gained 14 lbs back. Last EGD/colonoscopy yrs ago. No fam hx of GI malignancy. Reviewed available labs and imaging. Date Weight 05/05/21 133 lbs 02/2022 123 lbs 07/21/22 120lbs 03/01/23 106 lbs Noted in Epic Provider notified pt loss 90 lbs since 201803/02/23 consult to Gi placed per Natalia Torres MD for abdominal pain # Abdominal pain, nausea, vomiting - GI referral - ongoing weight loss, had recent barium GI series, results unknown - constipated, advised milk of mag, avoid fiber supplements currently - checking labs today including TSH and T4 # Weight loss - ? R/t thyroid suppression, also working long hours, not always eating - TSH appropriately suppressed, may need to adjust levothyroxine - advised to continue 1-2 supplements per day in meantime 03/01/23 CT CHEST W IVCON 1. Again the findings are compatible with pulmonary sarcoidosis with no change compared to the recent prior examinations. No new suspicious lung nodules have developed. 2. Stable borderline enlarged bilateral hilar and mediastinal lymph nodes in keeping with history of sarcoidosis. 02/24/23 ER visit notes at [facility] 62-year-old female presented to ER with persistent vomiting. May have cyclic vomiting syndrome. No specific pain on exam. Had improved with initial treatment in the ER yesterday. Had been prescribed Reglan with some improvement. Returns ER today because of vomiting. Examination otherwise benign except for chronic ill appearance, Colonoscopy ([id number]) on 05/17/2012 at 52 Years. Laparoscopic cholecystectomy ([id number]) Tube Collected Yes *NA* (02/24/23 7:20 PM) Yes *NA* (02/24/23 7:20 PM) Yes *NA* (02/24/23 7:20 PM) Creatinine Level [0.60-1.30 mg/dL] 0.80 mg/dL (02/24/23 7:20 PM) Albumin Level [3.5-5.0 gm/dL] 4.4 gm/dL (02/24/23 7:20 PM) Alk Phos [32-91 IU/L] 85 IU/L (02/24/23 7:20 PM) Bili Total [0.3-1.2 mg/dL] 1.1 mg/dL (02/24/23 7:20 PM) BUN [8-26 mg/dL] 23 mg/dL (02/24/23 7:20 PM) Chloride Level [101-111 mmol/L] 109 mmol/L (02/24/23 7:20 PM) CO2 [21-32 mmol/L] 25 mmol/L (02/24/23 7:20 PM) Glucose Level [74.0-118.0 mg/dL] 79.0 mg/dL (02/24/23 7:20 PM) Hct [33.7-40.4 %] 32.7 % *LOW* (02/24/23: PM) Hgb [11.3-15.9 gm/dL] 11.3 gm/dL (02/24/23 7:20 PM) MCH [24-34 pg] 28 pg (02/24/23:20 PM) MCHC [26-37 gm/dL] 34 gm/dL (02/24/23:20 PM) MCV [81-100 fL] 82 fL (02/24/23:20 PM) MPV [6.3-10.2 fL] 8.8 fL (02/24/23: PM) Osmolality 288 mOsm/L *NA* (02/24/23: PM) Platelet [138-427 x10^3/mcL] 182 x10^3/mcL (02/24/23 7:20 PM) Potassium Level [3.6-5.1 mmol/L] 3.2 mmol/L *LOW* (02/24/23: PM) RBC [3.70-5.30 x10^6/mcL] 4.00 x10^6/mcL (02/24/23:20 PM) RDW [11.5-15.0 %] 14.3 % (02/24/23: PM) Sodium Level [136.0-144.0 mmol/L] 143.0 mmol/L (02/24/23:20 PM) Protein Total [6.5-8.1 gm/dL] 7.3 gm/dL (02/24/23: PM) WBC [3.5-10.5 x10^3/mcL] 5.8 x10^3/mcL (02/24/23:20 PM) Anion Gap [5.0-19.0 mmol/L] 12.2 mmol/L (02/24/23: PM) Calcium Level [8.9-10.3 mg/dL] 8.9 mg/dL (02/24/23 7:20 PM) ALT/SGPT [14.0-54.0 IU/L] 26.0 IU/L (02/24/23 7:20 PM) AST/SGOT [15-41 IU/L] 25 IU/L (02/24/23 7:20 PM) Auto Eos % [0.9-4.0 %] 2.3 % (02/24/23 7:20 PM) Auto Lymph % [14-48 %] 11 % *LOW* (02/24/23 7:20 PM) Auto Neut % [44-88 %] 77 % (02/24/23 7:20 PM) Eos Abs# [0.0-0.4 x10^3/mcL] 0.1 x10^3/mcL (02/24/23 7:20 PM) Lymph Abs# [1.3-2.9 x10^3/mcL] 0.7 x10^3/mcL *LOW* (02/24/23 7:20 PM) Mifflin Abs# [0.0-0.8 x10^3/mcL] 0.5 x10^3/mcL (02/24/23 7:20 PM) Auto Baso % [0.2-2.0 %] 0.5 % (02/24/23 7:20 PM) Auto Mifflin % [1-12 %] 8 % (02/24/23 7:20 PM) Baso Abs# [0.0-0.2 x10^3/mcL] 0.0 x10^3/mcL (02/24/23 7:20 PM) Neut Abs# [1.5-9.2 x10^3/mcL] 4.5 x10^3/mcL (02/24/23 7:20 PM) BUN/Creat Ratio [4.6-16.2] 28.7 *HI* (02/24/23 7:20 PM) Globulin [1.5-4.3 gm/dL] 2.9 gm/dL (02/24/23 7:20 PM) A/G Ratio [1.4-2.6] 1.5 (02/24/23 7:20 PM) eGFR AA >60 mL/min/1.73m2 *NA* (02/24/23 7:20 PM) eGFR Non AA >60 mL/min/1.73m2 *NA* Component Latest Ref Rng & Units 11/18/2021 06/07/2022 03/01/2023 WBC 3.70 - 11.00 k/uL 6.26 6.89 6.04 RBC 3.90 - 5.20 m/uL 4.87 4.59 4.49 Hemoglobin 11.5 - 15.5 g/dL 13.6 12.5 12.5 Hematocrit 36.0 - 46.0 % 40.1 37.6 37.6 MCV 80.0 - 100.0 fL 82.3 81.9 83.7 MCH 26.0 - 34.0 pg 27.9 27.2 27.8 MCHC 30.5 - 36.0 g/dL 33.9 33.2 33.2 RDW-CV 11.5 - 15.0 % 13.7 13.9 14.5 Platelet Count 150 - 400 k/uL 239 255 231 MPV 9.0 - 12.7 fL 8.9 (L) 9.3 10.1 Neut% % 73.2 73.0 70.3 Abs Neut (ANC) 1.45 - 7.50 k/uL 4.59 5.03 4.25 Lymph% % 15.2 14.2 15.7 Abs Lymph 1.00 - 4.00 k/uL 0.95 (L) 0.98 (L) 0.95 (L) Mifflin% % 8.5 8.6 7.5 Abs Mifflin <0.87 k/uL 0.53 0.59 0.45 Eosin% % 2.4 3.2 5.5 Abs Eosin <0.46 k/uL 0.15 0.22 0.33 Baso% % 0.5 0.7 0.7 Abs Baso <0.11 k/uL 0.03 0.05 0.04 Immature Gran % % 0.2 0.3 0.3 IMMATURE GRANS (ABS) <0.10 k/uL <0.03 <0.03 <0.03 NRBC /100 WBC 0.0 0.0 0.0 Absolute nRBC <0.01 k/uL <0.01 <0.01 <0.01 DTYPE Auto Auto Auto Protein, Total 6.3 - 8.0 g/dL 6.9 6.8 6.8 Albumin 3.9 - 4.9 g/dL 4.5 4.3 4.4 Calcium 8.5 - 10.2 mg/dL 9.4 9.1 9.2 Bilirubin, Total 0.2 - 1.3 mg/dL 0.3 0.2 0.4 Alkaline Phosphatase 34 - 123 U/L 97 125 (H) 98 AST 13 - 35 U/L 22 39 (H) 24 ALT 7 - 38 U/L 31 55 (H) 24 Glucose 74 - 99 mg/dL 97 86 108 (H) BUN 7 - 21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 Well appearing, well nourished, no acute distress. HEAD: Normocephalic, no masses, lesions, tenderness or abnormalities. EYES: Anicteric sclera, PERRLA, EOMI, conjunctiva non-injected. EARS: External ears normal, canals clear, TM's normal. NOSE/SINUS: + mucosal edema, clear drainage on right OROPHARYNX: Lips, tongue normal. Oropharynx clear. NECK: Supple, no adenopathy. LUNGS: Lungs clear to auscultation. No wheezing or rhonchi. HEART: Regular rate and rhythm without murmur, gallop, or rub. EXTREMITIES: No deformities, cyanosis, or edema. NEURO: Alert and oriented. Normal gait and no involuntary motions. SKIN: Skin color, texture, and turgor normal. No suspicious rash or lesions. Diagnostics: July 21, 2022 Skin testing: See nurse procedure note for full details. Inhalant SPT: + trees Inhalant ID: + weeds, alternaria Assessment and Plan: 1) Chronic allergic rhinitis (trees, weed, ragweed, mold) - Oral antihistamine helps but over drying effect, may try cetirizine liquid 5ml or fexofenadine liquid 10ml - Nasal steroid spray (Nasacort) 2 sprays each nostril once daily. This medication is an intra-nasal steroid, which works better if you use it every day for weeks at a time. Stop use and call me if you develop a nose bleed. - Use Azelastine (Astelin/Astepro) 2 sprays each nostril twice daily as needed for runny, itchy nose, and sneezing. This medication is an anti-histamine, which works quickly (in about 30 minutes), and can be used as needed. - continue optimizing avoidance measures - If no improvement in symptoms with medication and avoidance measures as above can consider optionof immunotherapy (allergy shots). - advised to avoid systemic steroid injections for allergies due to the numerous potential side effects with this treatment 2) Chronic pharyngitis - suspect multifactorial with acid reflux and post nasal drip contributing - famotadine daily helped but worsened stomach symptoms, now using PRN 3) Adverse food reaction - skin test is negative for potato indicating no allergy - may reintroduce potatoes into the diet 4) Throat closing, dysphagia - follow up with ENT Discussed medication dosage, usage, side effects, and goals of treatment in detail. Patient advised to call or return sooner should new symptoms or problems arise. Joelle Ren MD [facility] documented in this encounterThe [facility]09-07-2023 NoteMi[facility]06-20-2023 Miscellaneous Notes* Telephone Encounter - Tamara Tamez APRN.CNP - 11/15/2022 8:27 AM EDT The following approved medication requests have been transmitted electronically. Requested Prescriptions Signed Prescriptions Disp Refills EUTHYROX 137 mcg tablet 90 tablet 3 Sig: Take 1 tablet by mouth once daily Authorizing Provider: TAMARA TAMEZ APRN.CNP documented in this encounterThe [facility]02-23-2023 Instructions* Patient Instructions* Joelle Ren MD - 07/21/2022 2:47 PM EST Images from the original note were not included. Skin test shows evidence of allergy to (trees, weed, ragweed, mold). Refer to pollen calender handout for more information on periods of peak exposure to pollens. Management of your allergies includes avoidance measures (see handout) and medication (and/or immunotherapy) for symptoms. TREATMENT Plan: - Oral antihistamine (cetirizine 10mg), one tablet once day as needed for allergy symptoms. May increase to two tablets per day for periods of peak allergen exposure. - Nasal steroid spray (Nasacort) 2 sprays each nostril once daily. This medication is an intra-nasal steroid, which works better if you use it every day for weeks at a time. Stop use and call me if you develop a nose bleed. - Use Azelastine (Astelin/Astepro) 2 sprays each nostril twice daily as needed for runny, itchy nose, and sneezing. This medication is an anti-histamine, which works quickly (in about 30 minutes), and can be used as needed. - If no improvement in symptoms with medication and avoidance measures as above can consider optionof immunotherapy (allergy shots). How to use a Nose Jasper 1) Lean forward and look down when using nose spray 2) Angle the tip of the bottle pointing out towards the ear 3) Administer 1 spray and lightly sniff - you do not need to inhale deeply 4) If your dose is 2 sprays on each side, administer to the left and right side, wait a few minutes, and then administer the next dose Reference: [email or web address] documented in this encounter[facility] History of Present illness Narrative* Joelle Ren MD - 07/21/2022 1:07 PM EST Images from the original note were not included. This is a request for consultation by Mel Palacio [id number] [facility] [id number] Consult requested for an opinion regarding the evaluation and treatment of the above. My final impression and recommendations will be communicated back to the requesting physician by way of the shared medical record or letter via US mail.. Zack Snow is a 62 year old patient with hx of sarcoidosis who presents with chief complaint: nasal symptoms Reports symptom of sinus pressure, itchy eyes, watery eyes, clear rhinorrhea, nasal congestion, sneezing, postnasal drip. She gets left sided sinus pressure and right eye itching. Eyelids are red and itchy. She has dry eyes. Sense of smell: Comes and goes along with taste These symptoms are perennial. The patient has been suffering from these symptoms for year, worse in the last year. The patient has tried: OTC eye drops (unsure of artificial tears). Has tried antihistamine as needed with partial relief. She uses nasal spray OTC as needed. PCP gives steroid injection in the spring to prevent contact dermatitis with poison blanca and sumac. Prior allergy evaluation: has had environmental testing 10 years ago which was did oak tree pollen Immunotherapy has never been tried. The patient has not had sinus surgery in the past. She has concerns for food allergy. Last Monday she was at work, had acute onset of nasal congestion affecting her ability to breathe.She used ice on her wrists and gradual resolution. No rash, GI or resp sx. Sometimes does feel like throat muscles gets tight. Triggers: mashed potatoes (milk, butter). She typically tolerates dairy. These episodes have been occurring more frequently. Recently diagnosed with bronchitis and given prednisone and oral steroids. She gets occasional heartburn, frequent throat clearing. Legend: Triggered a BPA Scoring question LISA AMBULATORY VISIT INTAKE QUESTIONNAIRE Question 07/21/2022 10:05 AM EST - Filed by Patient Has the Patient Had 2 Falls in the Last Year or 1 Fall with Injury or Currently Using an AmbulatoryAssistive Device (Walker, Cane, Wheelchair, Crutches, etc.) No Are you having pain associated with your visit today? Yes What is your Pain Level? 1 Pain Location Nose Description Pressure Duration Amount of Time Duration Units Frequency Continuous Intervention/Comfort measure Relaxation Aromatherapy to promote a healing environment Cold Heat Massage Pillow support Positioning Comments You will be receiving medical information during your visit. Is there anything we need to know to help you understand the information you will be given? No [facility] Question 07/21/2022 10:06 AM EST - Filed by Patient Is this visit related to an accident, other than Workers' Compensation? No Is this visit related to Workers' Compensation? No Do you need an mult au matic operator? No [facility] FOOD ALLERGY NEW PT QUALIFIER Question 07/21/2022 10:08 AM EST - Filed by Patient Are you or your child being seen today for food allergies? No [facility] SLEEP APNEA SCREENING TOOLS V2 Question 07/21/2022 10:09 AM EST - Filed by Patient Snore Loudly No Tired, fatigued or sleepy in daytime Yes Stop breathing or choking/gasping during sleep No High blood pressure Yes Sleep Apnea Screen V2 (range: 0 - 100) 18 (Sleep study not recommended) [facility] COLLATERAL ALLERGY HISTORY Question 07/21/2022 10:10 AM EST - Filed by Patient Do you have or have you ever been diagnosed with allergic rhinitis? No Have you ever been skin tested for allergies? Yes Do you have asthma? Not Sure Do you have or have you ever been diagnosed with eczema or atopic dermatitis? No Do you get frequent sinus infections? Yes Do you have nasal polyps? Not Sure Do you have or have you ever been diagnosed with urticaria / hives? No Do you have or have you ever been diagnosed with angioedema? No Do you have or have you ever been diagnosed with food allergy? No Do you have or have you ever been diagnosed with stinging insect allergy (bee, wasp, yellow jacket,hornet)? Yes Are you allergic to Penicillin antibiotics? No [facility] PROMIS 10 ADULT SHORT FORM V1.0 GLOBAL HEALTH Question 07/21/2022 10:13 AM EST - Filed by Patient In the past 7 days In general, would you say your health is: Fair In general, would you say your quality of life is: Good In general, how would you rate your physical health? Good In general, how would you rate your mental health, including your mood and your ability to think? Good In general, how would you rate your satisfaction with your social activities and relationships? Good In general, please rate how well you carry out your usual social activities and roles. (This includes activities at home, at work and in your community, and responsibilities as a parent, child, spouse, employee, friend, etc.) Good To what extent are you able to carry out your everyday physical activities such as walking, climbing stairs, carrying groceries, or moving a chair? Mostly In the past 7 days In the past 7 days, how often have you been bothered by emotional problems such as feeling anxious,depressed or irritable? Sometimes In the past 7 days, how would you rate your fatigue on average? Mild In the past 7 days, how would you rate your pain on average? PROMIS Adult Short Form-Global Health Score (Physical) (range: 16 - 68) Incomplete PROMIS Adult Short Form-Global Health Score (Mental) (range: 21 - 68) 43.5 (Good) Myc Promis Gh Physical Score Compared To Last (range: -2 - 3) 0 (NO SCORE = 0) Myc Promis Gh Mental Score Compared To Last (range: -2 - 3) 0 (NO SCORE = 0) [facility] ALLERGY PROVIDER UNDERSTANDING CURRENT HEALTH Question 07/21/2022 10:14 AM EST - Filed by Patient These questions will help my provider understand my health Agree [facility] DOCUMENT/IMAGE UPLOAD Question 07/21/2022 10:15 AM EST - Filed by Patient Photo ID If there are images or documents you'd like to share with your provider during your visit, you may upload up to a total of five files. For body images use the pencil icon to label your image. When labeling the image, please use the following format: The name of the body part followed by the side. For example, Back of Right Forearm or Lower Left Leg. ENVIRONMENTAL HISTORY: Tobacco smoke: No exposure in the home. Favian: Hchc-do-yome carpeting Pets in the home: There are no pets in the home Feather/Down:No Dust mite controls: Dust mite controls are not in place. Air conditioning: Central air Current Outpatient Medications Medication Sig ProAir RespiClick 90 mcg/actuation breath activated Take 1-2 puffs every 4 to 6 hours as needed forshortness of breath or wheezing estradiol (CLIMARA) 0.1 mg/24 hr APPLY 1 PATCH TOPICALLY ONCE A WEEK (Patient not taking: Reported on 03/28/2022) estradiol (YANCI, VIVELLE-DOT) 0.1 mg/24 hr Apply 1 Patch to affected area one time a week. fluticasone-salmeterol (WIXELA INHUB) 250-50 mcg/dose inhaler Inhale 1 Puff as instructed twice daily. Rinse mouth and gargle with water after use. EUTHYROX 137 mcg tablet TAKE 1 TABLET BY MOUTH ONCE DAILY BEFORE BREAKFAST latanoprost (XALATAN) 0.005 % ophthalmic solution 1 Drop daily at bedtime. (Patient not taking: Reported on 03/28/2022) mupirocin (BACTROBAN) 2 % ointment Apply to affected area three times daily. (Patient not taking: Reported on 03/28/2022) amLODIPine (NORVASC) 2.5 mg tablet Take 2.5 mg by mouth once daily. estrogens conjugated (PREMARIN) 1.25 mg tablet Take 1.25 mg by mouth once daily. (Patient not taking: Reported on 03/28/2022) No current facility-administered medications for this visit. ALLERGIES Allergen Reactions Strawberry Unknown OAK TREE ALLERGY REVEALED FROM ALLERGY TESTING Sulfa (Sulfonamide * GI Upset PAST MEDICAL HISTORY Diagnosis Date Adjustment disorder with anxiety HTN (hypertension) Papillary thyroid carcinoma (HCC) PAST SURGICAL HISTORY Procedure Laterality Date CATARACT EXTRACTION HX LAPAROSCOPY SURG CHOLECYSTECTOMY REMOVAL OF KIDNEY STONE THYROIDECTOMY TOTAL/COMPLETE Social History Tobacco Use Smoking status: Never Smokeless tobacco: Never Vaping Use Vaping Use: Never used Substance Use Topics Alcohol use: No Drug use: No FAMILY HISTORY Problem Relation Age of Onset Heart Attack Father 66 Cancer Other Review of Systems: GENERAL: Negative for weight loss, malaise, fevers or chills. EYE: Negative itchy, watery eyes. No vision changes. ENT: Negative for rhinnorhea, nasal congestion, sinus congestion or epistaxis. NECK: Negative for lumps, pain and significant neck swelling RESPIRATORY: Negative for cough, wheezing or shortness of breath. CARDIOVASCULAR: Negative for chest pain, leg swelling. GI: Negative for abd pain, blood in stools, nausea/vomiting, diarrhea/constipation. MUSCULOSKELETAL: Negative for joint pain or swelling, back pain, muscle pain. SKIN: Negative for lesions, rash, itching. HEMATOLOGY/LYMPH: Negative for blood clots, prolonged bleeding, easy bruising. ENDOCRINE: Negative for cold/heat intolerance, polyuria, polydipsia. NEURO: No headaches. Balance of ROS per HPI. Physical Examination: Pulse 111 Wt 54.5 kg (120 lb 3.2 oz) SpO2 99% BMI 19.41 kg/m GENERAL: Well appearing, well nourished, no acute distress. HEAD: Normocephalic, no masses, lesions, tenderness or abnormalities. EYES: Anicteric sclera, PERRLA, EOMI, conjunctiva non-injected. EARS: External ears normal, canals clear, TM's normal. NOSE/SINUS: + mucosal edema, clear drainage on right OROPHARYNX: Lips, tongue normal. Oropharynx clear. NECK: Supple, no adenopathy. LUNGS: Lungs clear to auscultation. No wheezing or rhonchi. HEART: Regular rate and rhythm without murmur, gallop, or rub. EXTREMITIES: No deformities, cyanosis, or edema. NEURO: Alert and oriented. Normal gait and no involuntary motions. SKIN: Skin color, texture, and turgor normal. No suspicious rash or lesions. Assessment and Plan: July 21, 2022 Skin testing: See nurse procedure note for full details. Inhalant SPT: + trees Inhalant ID: + weeds, alternaria 1) Chronic rhinitis - Skin test shows evidence of allergy to (trees, weed, ragweed, mold). - Refer to pollen calender handout for more information on periods of peak exposure to pollens. - Management of your allergies includes avoidance measures (see handout) and medication (and/or immunotherapy) for symptoms. TREATMENT Plan: - Oral antihistamine (cetirizine 10mg), one tablet once day as needed for allergy symptoms. May increase to two tablets per day for periods of peak allergen exposure. - Nasal steroid spray (Nasacort) 2 sprays each nostril once daily. This medication is an intra-nasal steroid, which works better if you use it every day for weeks at a time. Stop use and call me if you develop a nose bleed. - Use Azelastine (Astelin/Astepro) 2 sprays each nostril twice daily as needed for runny, itchy nose, and sneezing. This medication is an anti-histamine, which works quickly (in about 30 minutes), and can be used as needed. - If no improvement in symptoms with medication and avoidance measures as above can consider optionof immunotherapy (allergy shots). - advised to avoid systemic steroid injections for allergies due to the numerous potential side effects with this treatment 2) Chronic pharyngitis - suspect multifactorial with acid reflux and post nasal drip contributing - step up management of AR as above - trial omeprazole 20mg qam x 30 days to assess response. If this is helpful focus on diet and lifestyle modifications for GERD (e.g. minimizing coffee, dairy, spicy and fatty foods) 3) Adverse food reaction - skin test is negative for potato indicating no allergy - may reintroduce potatoes into the diet Discussed medication dosage, usage, side effects, and goals of treatment in detail. Follow-up: 3 months . Patient advised to call or return sooner should new symptoms or problems arise. Joelle Ren MD MPH FAAAAI July 21, 2022 documented in this encounterThe [facility] Miscellaneous Notes* Telephone Encounter - Vivian Lara LPN - 07/15/2022 11:06 AM EST BUCK 02/23/22 NOV 11/10/22 Pharmacy electronically requests the following refill(s) Requested Prescriptions Pending Prescriptions Disp Refills ProAir RespiClick 90 mcg/actuation breath activated (albuterol sulfate) 1 Each 2 Sig: Inhale 2 Puffs as instructed every 6 hours as needed for wheezing/shortness of breath. Take 1-2 puffs every 4 to 6 hours as needed for shortness of breath or wheezing Vivian Lara LPN * Telephone Encounter - Samantha Lam - 07/15/2022 10:34 AM EST Pt is calling requesting a new order be placed for albuterol sulfate (PROAIR RESPICLICK) 90 mcg/actuation Pt states she uses it more for work ,it is more convenient Please advise documented in this encounterThe [facility] History of Present illness Narrative* Rebecca Bedoya RN - 06/07/2022 1:30 PM EST Radiology Service Progress Note DATE OF SERVICE: June 07, 2022 TIME: 12:25 PM PATIENT WEIGHT: 120 LBS PATIENT IDENTITY VERIFICATION COMPLETED USING TWO (2) STANDARD IDENTIFIERS: Name and Date of confirmed by patient verbally and Name and Date of confirmed by identification band. FALL SCREENING: Has the patient had 2 falls in the last year or 1 fall with injury or currently using an Ambulatory Assistive Device (Walker, Cane, Wheelchair, Crutches, etc.)? No PATIENT GENDER DATA: Female. status: : No status: NO. ALLERGIES: Reviewed and unchanged CONTRAST ALLERGY: No EXAM: CT -CONTRAST INDUCED NEPHROPATHY RISK FACTORS: Patient age > 60 years CREATININE: Creatinine Date Value Ref Range Status 11/18/2021 0.77 0.58 - 0.96 mg/dL Final 03/04/2021 0.81 0.58 - 0.96 mg/dL Final Creatinine (POCT) Date Value Ref Range Status 06/07/2022 0.80 0.7 - 1.4 mg/dL Final eGFR (POCT) Date Value Ref Range Status 06/07/2022 >60 mL/min/1.73 m2 Final eGFR- Date Value Ref Range Status 03/04/2021 >60 Final P.O.C.T. RESULTS: POC done: Yes, See Lab Tab June 07, 2022 TREATMENT: No Hydration needed. IV SITE: Ambulatory: A peripheral IV was started in the Right forearm with a Angio cath: 22 gauge. and A Saline lock was inserted per protocol IV SITE APPEARANCE: Clean,Dry and Intact SIGNATURE: Rebecca Bedoya RN PATIENT NAME: Zack Snow DATE: June 07, 2022 TIME: 12:25 PM * RT Aba(R) - 06/07/2022 1:30 PM EST Radiology Service Progress Note PATIENT NAME: Zack Snow DATE OF SERVICE: June 07, 2022 TIME: 12:48 PM PATIENT IDENTITY VERIFICATION COMPLETED USING TWO (2) IDENTIFIERS: Name and Date of confirmedby patient verbally and Name and Date of confirmed by identification band. FALL SCREENING: Has the patient had 2 falls in the last year or 1 fall with injury or currently using an Ambulatory Assistive Device (Walker, Cane, Wheelchair, Crutches, etc.)? No PATIENT GENDER DATA: Female. status: : No status: NO. PATIENT RELEVANT IMPLANT DATA REVIEWED: Yes RADIOLOGY DEPARTMENT: CT; Exam(s) Completed: Chest and Neck PERIPHERAL IV DATA: Site assessment: Clean,Dry and Intact, Site disposition Discontinued SIGNED BY: RT Aba(R) June 07, 2022 12:48 PM documented in this encounterThe [facility]10-[facility] Nurse Note* Ashley Hudson MA - 03/28/2022 3:50 PM EDT Tobacco Use: Never Was smoking cessation packet given? N/A - Patient is a non-smoker or quit >1 year ago. Was a referral initiated?N/A Patient is a non-smoker documented in this encounterThe [facility]09-28-[facility]22 Procedure note* VIRGIL Miguel - 02/23/2022 8:49 AM EDTAssociated Order(s): NITRIC OXIDE, EXHALED RESPIRATORY THERAPY ORAL EXHALED NITRIC OXIDE SERVICE DATE: 02/23/2022 SERVICE TIME: 8:49 AM Oral Exhaled Nitric Oxide measurement: 26.0 (ppb) Comments: Wixela 24 hours pre testing. Normal: Adult 5-20 ppb, pediatric (<12 years) 5-15 ppb High Normal / Increased: Adult 20-35 ppb, pediatric (<12 years) 15-25 ppb Moderately raised exhaled Nitric Oxide may indicate underlying inflammation, but note that: Cold and influenza can raise exhaled Nitric Oxide and some patients have higher baseline exhaled Nitric Oxide levels than others. High: Adult >35 ppb, pediatric (<12 years) >25 ppb Indicative of ongoing eosinophilic inflammation. Symptomatic patient likely to respond to steroids. Possible causes (if already on steroids): Poor compliance, recent allergen exposure, steroid dose inadequate, and steroid resistance. Note that not all patients with high exhaled nitric oxide levels display symptoms. Oral Exhaled Nitric Oxide measurement (Previous Encounters) Test Date Oral Exhaled Nitric Oxide (ppb) 02/23/2022 26.0 NAME: VIRGIL Miguel PATIENT NAME: Zack Snow DATE: February 23, 2022 TIME: 8:49 AM documented in this encounterThe [facility]09-28-2022 History of Present illness Narrative* VIRGIL Miguel - 02/23/2022 8:47 AM EDT PULM FUNCTION SMARTBLOCK: Provider: Mel Palacio MD Assisting Tech: VIRGIL Miguel Spirometry w/BD: 1 DLCO: 1 Exhaled Nitric Oxide: 1 documented in this encounterThe [facility]09-28-2022 History of Present illness Narrative* Smitha Gramajo APRN.MACHINE MAINTENANCE SUPERVISOR - 02/23/2022 8:16 AM EDT February 23, 2022 : 1960 CC: Follow up PFTs and shortness of breath Ms. Snow is a 61 year old female with a medical history including pulmonary sarcoid, papillary thyroid cancer s/p thyroidectomy with right vocal cord paralysis 07/2018, GERD, and HTN that presents to follow up PFTs and shortness of breath. Last visit completed with Dr. Palacio 3 months ago. Impression and plan from this visit: Assessment: -Pulmonary sarcoid - radiographically possibly some mild progression compared to 2019 scan, however, clinically now with more dyspnea on exertion +/- cough requiring albuterol 5 days per week especially if more active - dyspnea on exertion -Papillary thyroid cancer s/p thyroidectomy with right vocal cord paralysis s/p thyroidectomy - fatigue - possible allergies Plan: - unclear if symptoms at this time are sarcoid related versus allergy/weather, but we will restart Breo 200 daily. Rinse mouth out after use. Will see if this improves her dyspnea - has albuterol that she can use prn in addition to Breo and keep track of use - we will obtain new set of PFTs and Sravani to reevaluate symptoms - advised her to get her eye exam up to date to make sure no changes related to sarcoid; she will try to set something up -Advised continued close follow up / imaging per Oncology / ENT. - discussed consideration of allergy evaluation for skin testing as it does seem some of her more recent symptoms could be more allergy related rather than sarcoid - agree with repeating CT chest in 6 months as being done by her oncology team - Smitha spoke to her in the past about pursuing sleep study in light of chronic fatigue and she wasadvised her to notify us if she was interested / willing to pursue testing. - she will call with any questions or concerns Discussed with the patient who agrees to the plan Return to the office in 3 months or sooner, she would like to continue care with me at [facility] in the future Currently, she notes unchanged shortness of breath that is present with exertion such as when she is at work (works at [employer]) and have to walk around the store, lifting, or pushing heavy carts. Shedoes chronically notice cough with phlegm which is clear. Denies fevers, notes she is always cold. Admits to wheezing. Does notice difficulty swallowing on occasion which has caused coughing at night. This has been present since her thyroid surgery. She does sleep on an incline. She notes hoarseness. Down ~40lb since her surgery 2019. She does feel her weight has yet to stablize and feels her thyroid levels are contributing. She has been taking OTC generic Claritin which has been helping sinus symptoms. Denies chest pain. She is interested in pulmonary rehab if she is a candidate. The patients airways regimen is: Wixela 250-50 1 puff - generally using once daily Albuterol respiclick was using more until started Wixela, last used a few weeks ago HISTORIES: PAST MEDICAL HISTORY Diagnosis Date Adjustment disorder with anxiety HTN (hypertension) Papillary thyroid carcinoma (HCC) PAST SURGICAL HISTORY Procedure Laterality Date CATARACT EXTRACTION HX LAPAROSCOPY SURG CHOLECYSTECTOMY REMOVAL OF KIDNEY STONE THYROIDECTOMY TOTAL/COMPLETE Social History Tobacco Use Smoking status: Never Smokeless tobacco: Never Vaping Use Vaping Use: Never used Substance Use Topics Alcohol use: No Drug use: No FAMILY HISTORY Problem Relation Age of Onset Heart Attack Father 66 Cancer Other Current Outpatient Medications Medication Sig Dispense Refill fluticasone-salmeterol (WIXELA INHUB) 250-50 mcg/dose inhaler Inhale 1 Puff as instructed twice daily. Rinse mouth and gargle with water after use. 60 Each 3 EUTHYROX 137 mcg tablet TAKE 1 TABLET BY MOUTH ONCE DAILY BEFORE BREAKFAST 90 tablet 3 albuterol HFA (PROAIR HFA) 90 mcg/actuation inhaler 1-2 Puffs every 6 hours as needed for wheezing/shortness of breath. 1 Each 1 latanoprost (XALATAN) 0.005 % ophthalmic solution 1 Drop daily at bedtime. mupirocin (BACTROBAN) 2 % ointment Apply to affected area three times daily. (Patient not taking: Reported on 05/05/2021 ) 15 g 1 amLODIPine (NORVASC) 2.5 mg tablet Take 2.5 mg by mouth once daily. estrogens conjugated (PREMARIN) 1.25 mg tablet Take 1.25 mg by mouth once daily. No current facility-administered medications for this visit. ALLERGIES Allergen Reactions Strawberry Unknown OAK TREE ALLERGY REVEALED FROM ALLERGY TESTING Sulfa (Sulfonamide * GI Upset ROS: GENERAL: + weight loss HEENT: Negative for frequent or significant headaches RESPIRATORY: See HPI CARDIOVASCULAR: Negative for chest pain, leg swelling, CHF or palpitations Exam: BP 121/78 Pulse 94 Wt 123 lb (55.8kg) SpO2 99[RA]% Oxygen: Maintaining SpO2 on room air General: Well nourished, well hydrated, A&Ox3 in no acute distress HEENT: Normocephalic, atraumatic Lungs: Respirations unlabored, clear to auscultation bilaterally, no adventitious lung sounds Heart: RRR, S1 S2 auscultated; no murmurs, rubs, or gallops Extremities: No clubbing or cyanosis, Trace b/l LE edema Skin: Warm, clean, dry Neuro: Gait stable, grossly nonfocal Psych: Pleasant, appropriate Data: I have personally reviewed the following: CT chest Reviewed report and images 11/18/21 RESULT: Limitations: Minimal cardiac pulsation related motion noted. Ict Developer (topogram) images: No additional findings. Lines, tubes, and devices: None. Lung parenchyma: On lung windows, mostly clear central airways noted. Redemonstration of localized narrowing of the right upper lobe superior subsegment bronchus, images 51-56 series 2 associated with poststenotic dilation of the subsegmental bronchus. There is associated focal obliteration of small branch subsegmental bronchi, in this region associated with peribronchovascular soft tissue densities and more peripherally located micronodules some of which appear confluent, most likely demonstrating perilymphatic nodular distribution, visible from peripheral right upper lobe (images 31-75) to the central hilar region, left upper lobe demonstrating central hilar opacities relatively centrally located micronodules. Within the right lower lobe superior segment abutting the right major fissure, irregular nodular consolidative lesion measures about 12 x 6 mm on image 100, previously about 10 x 6 mm, and prior to that 9 x 5 mm (02/13/2020). Overall, there has been minimal-mild progression of perilymphatic nodular pattern compared to more remote prior studies from 2019, right side worse than left. Nodular lesion along right major fissure, image 82 and within anterior basal segment of right lower lobe (estimated to be about 7 mm on image 133) are noted again. Middle lobe nodular opacity (7-8mm on image 112) with mostly lobulated margins is slightly increased in size as well compared to prior study (about 7 mm) and was about 4 mm on 02/11/2019 exam. Pleural space: No pleural effusion. No pneumothorax. Lower neck, lymph nodes, and mediastinum: Thyroidectomy changes noted. No progressive axillary or supraclavicular lymphadenopathy meeting size criteria noted. Intrathoracically, redemonstration of bilateral mediastinal and hilar/perihilar lymph nodes. I do not appreciate intrinsic calcifications. Subcarinal lymph node is similar to prior exam but may be slightly larger compared to more remote prior exams from 2019. Heart, pericardium, and thoracic vessels: No appreciable atherosclerotic calcifications noted, including coronary arteries. No intraluminal filling defects identifiable in the pulmonary arteries, to the level of the lobar arteries noted. Pulmonary trunk is of normal caliber. Stable cardiac chambers. No pericardial effusion (presumed prominent physiologic pericardial fluid). Patulous esophagus noted. 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 Esophagus is unremarkable. Bones and soft tissues: Chest wall soft tissues are unremarkable. On bone window images, degenerative changes of the spine noted. Scoliosis. Sternum appears mildly osteopenic. Probably benign, stable, focal sclerotic lesion of posterior T3 vertebra. Upper abdomen: Cholecystectomy clips. Otherwise stable upper abdominal visceral structures. PFT Reviewed February 23, 2022 - Mild obstructive with significant BD response, normal diffusion capacity, flattened inspiratory loop FeNO = 26 PRE-BRONCH POST-BRONCH Pred LLN ULN Actual %Pred Actual %Chng SPIROMETRY FVC (L) 3.06 2.32 3.83 2.95 96 2.90 -1 FEV1 (L) 2.42 1.83 2.98 1.89 78 2.29 21 FEV1/FVC 0.79 0.67 0.90 0.64 80 0.79 23 FEF25 (L/sec) 2.49 4.04 61 FEF50 (L/sec) 3.26 1.65 4.87 1.34 41 2.27 69 FEF75 (L/sec) 0.63 0.25 1.47 0.96 152 1.02 6 CAJ92-74 (L/sec) 2.23 1.14 3.68 1.38 61 1.93 40 PEF L/s (L/sec) 6.14 4.49 7.80 3.41 55 4.62 35 FIVC (L) 2.55 2.94 15 FIF50 (L/sec) 0.71 1.32 86 PIF (L/sec) 1.25 1.44 15 Time (sec) 4.80 3.48 -27 ALAN (L) 0.13 0.12 -3 FET PEF (sec) 0.12 0.19 59 DIFFUSION DLCOunc (ml/min/mmHg) 21.23 15.06 27.40 20.77 97 DLunc/VA (ml/min/mmHg 4.49 3.17 5.81 5.11 113 Echo Reviewed 04/2020 CONCLUSIONS: - Technically difficult exam due to body habitus. - Exam indication: Pulmonary Sarcoidosis - The left ventricle is normal in size. Left ventricular systolic function is normal. EF = 58 5% (2D biplane) Normal left ventricular diastolic function. GLS is normal at -17.7% - The right ventricle is normal in size. Right ventricular systolic function is normal. - Exam was compared with the prior echocardiographic exam performed on 03/25/2019. There is no significant change. Labs Reviewed Glucose (mg/dL) Date Value 11/18/2021 97 03/04/2021 79 Potassium (mmol/L) Date Value 11/18/2021 4.7 03/04/2021 4.2 Sodium (mmol/L) Date Value 11/18/2021 143 03/04/2021 140 Chloride (mmol/L) Date Value 11/18/2021 104 03/04/2021 104 CO2 (mmol/L) Date Value 11/18/2021 28 03/04/2021 28 Creatinine (mg/dL) Date Value 11/18/2021 0.77 03/04/2021 0.81 BUN (mg/dL) Date Value 11/18/2021 13 03/04/2021 13 Anion Gap (mmol/L) Date Value 11/18/2021 11 03/04/2021 8 Calcium (mg/dL) Date Value 03/04/2021 9.1 Calcium, Total (mg/dL) Date Value 11/18/2021 9.4 CBC with diff: WBC 6.26 11/18/2021 RBC 4.87 11/18/2021 Hemoglobin 13.6 11/18/2021 Hematocrit 40.1 11/18/2021 MCV 82.3 11/18/2021 MCH 27.9 11/18/2021 MCHC 33.9 11/18/2021 RDW-CV 13.7 11/18/2021 Platelet Count 239 11/18/2021 MPV 8.9 11/18/2021 Neut% 73.2 11/18/2021 Lymph% 15.2 11/18/2021 Mifflin% 8.5 11/18/2021 Eosin% 1.9 03/04/2021 Baso% 0.5 11/18/2021 Abs Neut (ANC) 4.59 11/18/2021 Abs Mifflin 0.53 11/18/2021 Abs Eosin 0.15 11/18/2021 Abs Baso 0.03 11/18/2021 Assessment: -Pulmonary sarcoid, stable radiographically since 2019 with some worsening since imaging 2018, withrelatively unchanged exertional dyspnea -Obstruction on PFTs, possible asthma -Flattening of inspiratory loop on PFTs -History of papillary thyroid cancer s/p thyroidectomy with right vocal cord paralysis -Weight loss since 2018 Plan: -Discussed plan and reviewed PFTs with patient. She has noticed that she is requiring Albuterol inhaler less since starting Wixela inhaler. Admits to using Wixela typically once daily. Advised her toincrease Wixela 250-50 1 puff to twice daily. Continue Albuterol HFA PRN. She is interested in participating in pulmonary rehab depending on her insurance. Will investigate.Encouraged exercise as tolerated. Proceed with follow up CT chest 6 months from most recent as previously advised. Will help to arrange. She has not seen ophthalmology in a couple years; advised follow up at this time. -Her annual follow up with her ENT/ surgeon was cancelled earlier this year. Advised her to follow up with them at this time in light of evidence of possible extrathoracic obstruction on PFTs. Patient verbalized understanding. -Follow up with Oncology as advised. Advised close monitoring of weight and follow up with Onc / Endo for possible thyroid medication adjustments. RTO in [address] Palacio. Patient instructed to call our office or PCP or go to the emergency department for new or worsening problems or symptoms including, but not limited to, increasing shortness of breath, cough, phlegm, fever, and chills. Smitha Gramajo CNP My final recommendations will be communicated back to the requesting physician by way of shared medical record or letter via US mail. documented in this encounterThe [facility]07-18-2022 Miscellaneous Notes* Telephone Encounter - Vivian Lara LPN - 12/13/2021 11:37 AM EDT Spoke with patient, reviewed message below. Patient will reach out if any other concerns * Telephone Encounter - Elizabeth Pérez APRN.CNP - 12/13/2021 11:15 AM EDT Will prescribe alternative inhaler Wixela 250/50mcg 1 inhalation BID. Rinse mouth and gargle with water after use. If still not affordable, please provide list of alternatives for pt to ask insurancecompany about: Advair Diskus, Advair HFA, AirDuo Respiclick, Dulera, Symbicort Thanks, Tracy * Telephone Encounter - Stefanie Martínez - 12/10/2021 4:26 PM EDT Patient is calling in regards to her BREO ELLIPTA. Patient is unable to afford this prescription. Patient would like to know if there is an other medication that she could have. Please call patient on her home phone to advise. documented in this encounterThe [facility]06-29-2022 History of Present illness Narrative* Mel Palacio MD - 11/24/2021 4:21 PM EDT Images from the original note were not included. Pulmonary Office Visit Progress Note COMMUNICATION WILL BE SENT VIA SHARED MEDICAL RECORDS OR US MAIL. CC: Pulmonary sarcoidosis and Dyspnea On Exertion HPI: Zack Snow is a 61 year old year old female who presents for follow-up of LUA/sarciod, last seen in the office Apr 2021 with Smitha. 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 At work about 2-3 times a week. She also takes albuterol more so with the warmer weather and allergies. She has been using 5 times out of 7 days of the week. Some days she does not need it at all. Coupleof months now this has been going, since September 2021. She got an allergy shot through primary care, she was given what sounds like steroid shot for allergies, this was around August 2021. She is taking OTC 10mg daily pill now for allergies. PAST MEDICAL HISTORY Diagnosis Date Adjustment disorder with anxiety HTN (hypertension) Papillary thyroid carcinoma (HCC) PAST SURGICAL HISTORY Procedure Laterality Date CATARACT EXTRACTION HX LAPAROSCOPY SURG CHOLECYSTECTOMY REMOVAL OF KIDNEY STONE THYROIDECTOMY TOTAL/COMPLETE FAMILY HISTORY Problem Relation Age of Onset Heart Attack Father 66 Cancer Other Social History Tobacco Use Smoking status: Never Smoker Smokeless tobacco: Never Used Vaping Use Vaping Use: Never used Substance Use Topics Alcohol use: No Drug use: No Current Outpatient Medications Medication Sig Dispense Refill fluticasone-vilanterol (BREO ELLIPTA) 200-25 mcg/dose inhaler Inhale 1 Inhalation as instructed once daily. Rinse mouth out after use 60 Each 5 EUTHYROX 137 mcg tablet TAKE 1 TABLET BY MOUTH ONCE DAILY BEFORE BREAKFAST 90 tablet 3 albuterol HFA (PROAIR HFA) 90 mcg/actuation inhaler 1-2 Puffs every 6 hours as needed for wheezing/shortness of breath. 1 Each 1 latanoprost (XALATAN) 0.005 % ophthalmic solution 1 Drop daily at bedtime. mupirocin (BACTROBAN) 2 % ointment Apply to affected area three times daily. (Patient not taking: Reported on 05/05/2021 ) 15 g 1 amLODIPine (NORVASC) 2.5 mg tablet Take 2.5 mg by mouth once daily. estrogens conjugated (PREMARIN) 1.25 mg tablet Take 1.25 mg by mouth once daily. No current facility-administered medications for this visit. ALLERGIES Allergen Reactions Strawberry Unknown OAK TREE ALLERGY REVEALED FROM ALLERGY TESTING Sulfa (Sulfonamide * GI Upset REVIEW OF SYSTEMS GENERAL: No weight loss, malaise or fevers . HEENT: Negative for frequent or significant headaches NECK: Negative for pain or significant neck swelling RESPIRATORY: see HPI CARDIOVASCULAR: Negative for chest pain, leg swelling or palpitations GI: No nausea, vomiting, or diarrhea : No history of dysuria or frequency MUSCULOSKELETAL: negative SKIN: Negative for lesions, rash, and itching . PSYCH: Negative for sleep disturbance, mood disorder and recent psychosocial stressors The remainder of the review of systems is negative. PHYSICAL EXAMINATION: BP 143/79 Pulse 101 Temp (Src) 97.9 (Temporal) Wt 124 lb (56.2kg) SpO2 100[RA]% General appearance: well appearing, in no acute distress, alert Skin: skin color normal, no rashes or lesions Eyes: Anicteric sclera. Extraocular movements are intact. Ears: External ears normal, canals clear Nose: Nasal mucosa appears normal Oropharynx: lips, mucosa, and tongue normal, oropharynx normal Neck: Supple, no adenopathy Respiratory: lungs clear to auscultation, no wheezing or rhonchi Cardiovascular: S1, S2. RRR without murmur. No lower extremity edema Gastrointenstinal: Abdomen soft, non-tender Musculoskeletal: Extremities normal. No deformities or skin discoloration. Neuro: Gait normal. Sensation grossly intact. DATA: I personally reviewed the labs, PFTs and radiographs CT chest 11/18/2021 1. Right greater than left upper lung predominant perilymphatic distribution nodular pattern is noted again, demonstrating mild progression compared to more remote studies from 2019. Findings are most likely related to sarcoidosis, including right lower lobe and middle lobe nodular consolidative lesions. Continued attention on follow-up recommended (in 6 months, as the lesions measure slightly larger and neoplasm is not completely excluded, especially right lower lobe lesion). 2. Intrathoracic lymphadenopathy, likely related to sarcoidosis. 3. Patulous esophagus redemonstrated. Chest CT: 03/04/2021 1. Essentially stable multiple peribronchovascular and perilymphatic nodules predominantly in upper lungs in keeping with a granulomatous process such as sarcoidosis. No new lung nodules have developed. 2. Unchanged borderline enlarged lymph nodes in bilateral pio and in the mediastinum in a pattern consistent with sarcoidosis. Chest CT: 09/03/2020 1. Again, right greater than left upper lobe predominant peribronchial vascular and peripheral opacities subpleural nodular lesions indicating perilymphatic nodular distribution are redemonstrated, similar to 02/13/2020 but minimally worsened compared to remote prior study dated 07/10/2018. These findings are most suggestive of sarcoidosis. Other etiologies/etiologies are less likely. 2. Tiny nodular lesions medial subsegment of middle lobe may be new. Attention on follow-up recommended. 3. Mediastinal and bilateral hilar lymphadenopathy redemonstrated, more typical of sarcoidosis than neoplastic/metastatic disease. CT chest 02/04/2020 No significant interval changes since 05/17/2019. Stable peribronchovascular nodular opacities, predominantly in the right upper lobe along with additional stable lung nodules bilaterally. The findings are most likely inflammatory/infectious process particularly sarcoidosis given prior tissue sampling yielding negative result for malignant cells. Continued attention on follow-up is recommended. Stable borderline to mildly enlarged hilar lymph nodes. No new or progressive thoracic lymphadenopathy. 05/17/19 CT chest 1. Asymmetric, mainly right upper lobe peribronchovascular opacities noted, with a few peripheral nodules and subpleural opacities bell-fissural nodule noted (indicating perilymphatic distribution), along with symmetric bilateral mediastinal and hilar prominent lymph nodes. In the light of multiple granulomas noted on bronchoscopic brushings and aspirate samples, sarcoidosis is considered. Neoplastic process, lymphoproliferative or metastatic, less likely but probably not totally excluded. Continued attention on follow-up recommended. 2. No enlarging lymph nodes noted. 3. No new nodules. 02/11/19 CT chest Stable to slight decrease in size of scattered indeterminant pulmonary nodules measuring up to 18 mm, most extensive in the right upper lobe, and stable borderline thoracic and hilar lymphadenopathy. These findings are indeterminate and may be infectious or inflammatory in nature although they may also in part be related to the patient's suspected diagnosis of sarcoidosis. LABS: 12/18/2018 10:21 Sodium 140 Potassium 4.3 Chloride 103 CO2 29 BUN 15 Creatinine 0.79 Glucose 87 Protein, Total 7.0 Calcium 9.3 Albumin 4.2 Bilirubin, Total 0.3 Alkaline Phosphatase 122 ALT 35 AST 28 Anion Gap 8 (L) eGFR- >60 eGFR-All Other Races >60 CRP 0.3 SAUD 34 Ionized calcium 1.18 Ref. Range 12/18/2018 10:21 Histo Mycelial Ab-CF Latest Ref Range: <1:8 Dilutions <1:8 Histo Yeast Ab - CF Latest Ref Range: <1:8 Dilutions <1:[address]: 10/10/18 Stable to minimally increasing size of multiple pulmonary nodules bilaterally, predominantly in the right upper lobe measuring up to 1.9 cm as detailed above. The findings are indeterminate in etiology, and neoplastic process cannot be excluded. Bronchoscopy has been scheduled tomorrow for further evaluation. No progressive intrathoracic lymphadenopathy Lung parenchyma and pleura: The central airways are patent without endobronchial lesion. Scattered calcified granulomas noted, for example in the left upper lobe (image 45). Again noted are multiple nodular opacities bilaterally, predominantly in the right upper lobe, stable to minimally increased in size, for reference: 1.6 x 1.9 cm bronchocentric nodular in the right upper lobe (image 77), previously 1.5 x 1.7 cm; 1.7 x 1.9 cm irregular shaped bronchocentric nodule in the right upper lobe (image 96), previously 1.6 x 1.8 cm; 1 cm nodule in the suprahilar right upper lobe (image 100), unchanged; 7 mm perifissural right lower lobe nodule (image 146), likely lymph node; 6 mm perifissural right lower lobe nodule (171), stable. 6 mm left apical nodule (images 31); 5 mm left upper lobe nodule containing calcification (image 46). Nodular opacity in the peripheral right upper lobe are likely atelectasis. There is a scarring/atelectasis in the right mid lobe and lingula There is no new nodule identified. No pleural effusion or pneumothorax is present. Thoracic inlet, heart, and mediastinum: Postsurgical changes of thyroidectomy. The intrathoracic lymph nodes are stable noting borderline sized lymph nodes, for example a 1 cm right paratracheal lymph node image 86), 1 cm AP window lymph node (image 108), likely reactive in nature. 07/10/18 CT chest PFT: 11/16/2018 I have personally reviewed and my interpretation is as follows: Spirometry with no obstruction, suggests restriction, mild reduction in DLCO DLCO: 15.38, 69% 10/11/18 EBUS - Rapid On-Site Evaluation (BRIANA): Preliminary cytology was suggestive of non-necrotic granulomatous tissue in node level 7 and preliminary cytology was non-diagnostic in node level 4R, node level 11L and node level 12L (final results are pending). FINAL DIAGNOSIS A. BRONCHIAL, LEFT UPPER LOBE BRUSHING (THINPREP,SMEARS AND CELL BLOCK) Negative for malignant cells. Granulomas present. See comment. B. BRONCHIAL, #22 EBUS,TBNA,11L FINE NEEDLE ASPIRATE (THINPREP, SMEARS AND CELL BLOCK) Negative for malignant cells. Limited lymphoid sample and rare collection of histiocytes. C. BRONCHIAL, #22 EBUS,TBNA,12L FINE NEEDLE ASPIRATE (THINPREP, SMEARS AND CELL BLOCK) Non-diagnostic aspirate sample Not a lymphoid sample. Bronchial cells. D. BRONCHIAL, #22 EBUS,TBNA,STATION 7 FINE NEEDLE ASPIRATE (THINPREP, SMEARS AND CELL BLOCK) Negative for malignant cells. Limited lymphoid sample. Granulomas present. See comment. E. BRONCHIAL, #22 EBUS,TBNA,4R FINE NEEDLE ASPIRATE (THINPREP, SMEARS AND CELL BLOCK) Not a lymphoid sample. Granulomas present. See comment. F. LEFT UPPER LOBE BRONCHOALVEOLAR LAVAGE Negative for malignant cells. Alveolar macrophages. Comment: The etiology of he granulomas cannot be ascertained from the cytology specimens. Clinical correlation and correlation with microbiologic studies is recommended. The cell blocks on A and B are acellular. An addendum will follow pending AFB and GMS stains to be done on the cell block from specimen E. E: GMS and AFB stains are non-contributory as no granulomas are present on the recut stained slides. BAL Results for ZACK SNOW ( ) as of 11/16/2018 08:43 Ref. Range 10/11/2018 13:00 RBC, BA Lavage Latest Units: /uL 2,895 Total Nucleated Cells, BAL Latest Units: /uL 27 Neut%, BA Lavage Latest Ref Range: 0 - 1 % 2 (H) Lymph%, BA Lavage Latest Ref Range: 6 - 8 % 16 (H) Mifflin%, BA Lavage Latest Units: % 1 Macro%, BA Lavage Latest Units: % 81 Slide Number BA Lavage Unknown [id number] ECHO 05/27/2020 - Technically difficult exam due to body habitus. - Exam indication: Pulmonary Sarcoidosis - The left ventricle is normal in size. Left ventricular systolic function is normal. EF = 58 5% (2D biplane) Normal left ventricular diastolic function. GLS is normal at -17.7% - The right ventricle is normal in size. Right ventricular systolic function is normal. - Exam was compared with the prior echocardiographic exam performed on 03/25/2019. There is no significant change. Echo 12/18/18 - The left ventricle is normal in size. Left ventricular systolic function is normal. EF = 56 5% (2D biplane) - The right ventricle is normal in size. Right ventricular systolic function is normal. - Estimated right ventricular systolic pressure is likely underestimated due to a weak or incomplete tricuspid regurgitation signal and is, at least, 22 mmHg consistent with normal pulmonary artery pressures. Estimated right atrial pressure is 8 mmHg based on IVC assessment. -Trivial-small pericardial effusion noted adjacent to the LV and RV. -MV inflow variation of %24, TV -30.5% -IVC is dilated and collapses >50% with inspiration. -No chamber collapse/hemodynamic compromise noted - update oncologist to see if recommend cardiology evaluation or if seen in her type of cancer - will need to monitor closely Swallow evaluation Impression / Recommendation: Based on MBS assessment performed on 12/18/2018, patient presents withpharyngeal phase and suspected esophageal dysphagia as characterized by findings below. 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 Assessment: -Pulmonary sarcoid - radiographically possibly some mild progression compared to 2019 scan, however, clinically now with more dyspnea on exertion +/- cough requiring albuterol 5 days per week especially if more active - dyspnea on exertion -Papillary thyroid cancer s/p thyroidectomy with right vocal cord paralysis s/p thyroidectomy - fatigue - possible allergies Plan: - unclear if symptoms at this time are sarcoid related versus allergy/weather, but we will restart Breo 200 daily. Rinse mouth out after use. Will see if this improves her dyspnea - has albuterol that she can use prn in addition to Breo and keep track of use - we will obtain new set of PFTs and Sravani to reevaluate symptoms - advised her to get her eye exam up to date to make sure no changes related to sarcoid; she will try to set something up -Advised continued close follow up / imaging per Oncology / ENT. - discussed consideration of allergy evaluation for skin testing as it does seem some of her more recent symptoms could be more allergy related rather than sarcoid - agree with repeating CT chest in 6 months as being done by her oncology team - Smitha spoke to her in the past about pursuing sleep study in light of chronic fatigue and she wasadvised her to notify us if she was interested / willing to pursue testing. - she will call with any questions or concerns Discussed with the patient who agrees to the plan Return to the office in 3 months or sooner, she would like to continue care with me at [facility] in the future Mel Palacio MD Pulmonary & Critical Care Medicine [facility] Res[facility] [place] November 24, 2021 4:21 PM I spent a total of 30 minutes on the date of the service which included preparing to see the patient, [id number] patient care, completing clinical documentation, obtaining and/or reviewing separately obtained history, performing a medically appropriate examination, counseling and educating the pat ient/family/caregiver, ordering medications, tests, or procedures, communicating with other HCPs (not separately reported), independently interpreting results (not separately reported) and communicating results to the patient/family/caregiver. documented in this encounterThe [facility]04-14-2022 Miscellaneous Notes* Telephone Encounter - Tamara Tamez APRN.CNP - 09/09/2021 12:13 PM EDT The following approved medication requests have been transmitted electronically. Signed Prescriptions Disp Refills EUTHYROX 137 mcg tablet 90 tablet 3 Sig: TAKE 1 TABLET BY MOUTH ONCE DAILY BEFORE BREAKFAST SONJA: Yes Authorizing Provider: TAMARA TAMEZ APRN.CNP documented in this encounterThe [facility] CenterEvaludel[facility] note* Diagnosis Dyspnea on exertion- Primary Other dyspnea and respiratory abnormality Sarcoidosis Pulmonary sarcoidosis (HCC) Sarcoidosis [facility] Diagnosis Dyspnea and respiratory abnormalities- Primary Other dyspnea and respiratory abnormality Sarcoidosis [facility]* Diagnosis Sarcoidosis Dyspnea on exertion Other dyspnea and respiratory abnormality [facility]* Diagnosis Pulmonary sarcoidosis (HCC)- Primary Sarcoidosis Obstructive lung disease (generalized) (HCC) Chronic airway obstruction, not elsewhere classified History of thyroid cancer Personal history of malignant neoplasm of thyroid Weight loss Loss of weight documented in this encounter [facility]* Diagnosis Sarcoidosis Dyspnea on exertion Other dyspnea and respiratory abnormality [facility]* Diagnosis Papillary thyroid carcinoma (HCC)- Primary Malignant neoplasm of thyroid gland Vocal cord paralysis Paralysis of vocal cords or larynx, unspecified [facility]* Diagnosis Papillary thyroid carcinoma (HCC) Malignant neoplasm of thyroid gland [facility]* Diagnosis Papillary thyroid carcinoma (HCC) Malignant neoplasm of thyroid gland documented in this encounter [facility]* Diagnosis Sarcoidosis documented in this encounter [facility] [facility]* Diagnosis Chronic rhinitis- Primary Allergic rhinitis, unspecified seasonality, unspecified trigger Sinus disease Unspecified sinusitis (chronic) Adverse food reaction, initial encounter Allergic conjunctivitis, bilateral Other chronic allergic conjunctivitis [facility] Diagnosis Allergic rhinitis, unspecified seasonality, unspecified trigger- Primary Chronic pharyngitis Unilateral partial vocal cord paralysis Unilateral partial paralysis of vocal cords or larynx [facility]* Diagnosis Moderate persistent asthma, unspecified whether complicated- Primary Allergic rhinitis, unspecified seasonality, unspecified trigger Pulmonary sarcoidosis (HCC) Sarcoidosis Weight loss Loss of weight Dyspnea and respiratory abnormalities Other dyspnea and respiratory abnormality [facility] noteNo assessment information availablePremier Health Work Phone: Evaluation note* Diagnosis Nausea and vomiting, unspecified vomiting type- Primary Generalized abdominal pain Abdominal pain, generalized Diarrhea, unspecified type Weight loss Loss of weight [facility]* Diagnosis Moderate persistent asthma, unspecified whether complicated Pulmonary sarcoidosis (HCC) Sarcoidosis Vocal cord paralysis Paralysis of vocal cords or larynx, unspecified Oropharyngeal dysphagia Dysphagia, oropharyngeal phase Lymphedema Other lymphedema [facility] Diagnosis Moderate persistent asthma, unspecified whether complicated Pulmonary sarcoidosis (HCC) Sarcoidosis Vocal cord paralysis Paralysis of vocal cords or larynx, unspecified Oropharyngeal dysphagia Dysphagia, oropharyngeal phase Lymphedema Other lymphedema [facility] Diagnosis Moderate persistent asthma, unspecified whether complicated- Primary Sarcoidosis of lung (HCC) Sarcoidosis Allergic rhinitis, unspecified seasonality, unspecified trigger Sinus disease Unspecified sinusitis (chronic) History of thyroid cancer Personal history of malignant neoplasm of thyroid Aspiration into airway, subsequent encounter Vocal cord paralysis Paralysis of vocal cords or larynx, unspecified Oropharyngeal dysphagia Dysphagia, oropharyngeal phase Lymphedema Other lymphedema documented [facility] this [facility]* Diagnosis Preop examination- Primary Preoperative examination, unspecified Vocal cord paralysis Paralysis of vocal cords or larynx, unspecified Primary hypertension Unspecified essential hypertension Uncomplicated asthma, unspecified asthma severity, unspecified whether persistent Gastroesophageal reflux disease, unspecified whether esophagitis present Hypothyroidism, unspecified type Adjustment disorder with anxiety Vocal cord paralysis Paralysis of vocal cords or larynx, unspecified Oropharyngeal dysphagia Dysphagia, oropharyngeal phase Lymphedema Other lymphedema [facility] this [facility]* Diagnosis Severe protein-calorie malnutrition (HCC)- Primary Other severe protein-calorie malnutrition Gastroparesis [facility] this [facility]* Diagnosis On enteral nutrition- Primary Other specified conditions influencing health status Nasojejunal tube present Malnutrition of moderate degree (HCC) Malnutrition of moderate degree Pharyngoesophageal dysphagia Dysphagia, pharyngoesophageal phase documented [facility] this [facility] Diagnosis Malnutrition of moderate degree (HCC)- Primary Malnutrition of moderate degree documented [facility] this [facility]* Diagnosis Malnutrition of moderate degree (HCC)- Primary Malnutrition of moderate degree Dysphagia, oropharyngeal phase Gastroparesis documented in this encounter [facility]* Diagnosis Sarcoidosis of lung (HCC) Sarcoidosis documented [facility] this [facility]* Diagnosis Chronic pharyngitis- Primary Allergic rhinitis, unspecified seasonality, unspecified trigger Adverse food reaction, initial encounter Allergic conjunctivitis, bilateral Other chronic allergic conjunctivitis Unilateral partial vocal cord paralysis Unilateral partial paralysis of vocal cords or larynx documented in this [facility]* Diagnosis Nausea- Primary Nausea alone Gastroparesis [facility]* Diagnosis Chronic pulmonary aspiration, sequela- Primary Moderate persistent asthma, unspecified whether complicated Hospital discharge follow-up Other follow-up examination Pulmonary nodules Other nonspecific abnormal finding of lung field Chronic pulmonary aspiration, subsequent encounter [facility]* Diagnosis Papillary thyroid carcinoma (HCC)- Primary Malignant neoplasm of thyroid gland documented [facility] this encounter [facility]* Diagnosis Gastroparesis- Primary documented in this encounter [facility]* Diagnosis Papillary thyroid carcinoma (HCC) Malignant neoplasm of thyroid gland documented [facility] this encounter [facility]* Diagnosis Nausea- Primary Nausea alone documented [facility] this encounter [facility]* Diagnosis Papillary thyroid carcinoma (HCC)- Primary Malignant neoplasm of thyroid gland Postablative hypothyroidism Other postablative hypothyroidism Secondary malignancy of right lung (HCC) documented [facility] this encounter [facility]* Diagnosis Nausea Nausea alone documented [facility] this encounter [facility]* Diagnosis Nausea [R11.0]- Primary Nausea alone documented in this encounter [facility]* Diagnosis Nausea Nausea alone [facility]* Diagnosis Muscle soreness- Primary Mylagia and myositis, unspecified documented [facility] this encounter [facility]* Diagnosis Gastroparesis- Primary Gastroesophageal reflux disease, unspecified whether esophagitis present Severe protein-calorie malnutrition (HCC) Other severe protein-calorie malnutrition Pre-operative examination Preoperative examination, unspecified Gastroparesis Gastroesophageal reflux disease, unspecified whether esophagitis present Severe protein-calorie malnutrition (HCC) Other severe protein-calorie malnutrition Pre-operative examination Preoperative examination, unspecified documented [facility] this encounter [facility]* Diagnosis Muscle soreness- Primary Mylagia and myositis, unspecified Gastroparesis Gastroesophageal reflux disease, unspecified whether esophagitis present Severe protein-calorie malnutrition (HCC) Other severe protein-calorie malnutrition Pre-operative examination Preoperative examination, unspecified documented [facility] this encounter [facility]* Diagnosis Pre-op evaluation- Primary Preoperative examination, unspecified Primary hypertension Unspecified essential hypertension Pulmonary sarcoidosis (HCC) Sarcoidosis Uncomplicated asthma, unspecified asthma severity, unspecified whether persistent Gastroparesis Gastroesophageal reflux disease, unspecified whether esophagitis present Hypothyroidism, unspecified type Microcytic anemia Iron deficiency anemia, unspecified On home O2 Dependence on supplemental oxygen Gastroparesis Gastroesophageal reflux disease, unspecified whether esophagitis present Severe protein-calorie malnutrition (HCC) Other severe protein-calorie malnutrition Pre-operative examination Preoperative examination, unspecified * Assessment & Plan Note - Carrie Whitaker APRN.CNP - 11/08/2023 2:29 PM EDTAssociated Problem(s): On home O2 Assessment: 1L PRN Rarely needs * Assessment & Plan Note - Carrie Whitaker APRN.CNP - 11/08/2023 2:20 PM EDTAssociated Problem(s): Microcytic anemia Assessment: stable and asymptomatic Follows with hematology Hemoglobin (g/dL) Date Value 11/01/2023 11.4 03/04/2021 13.0 Hematocrit (%) Date Value 11/01/2023 34.8 03/04/2021 39.1 WBC (k/uL) Date Value 11/01/2023 6.59 03/04/2021 5.85 * Assessment & Plan Note - Carrie Whitaker APRN.CNP - 11/08/2023 2:19 PM EDTAssociated Problem(s): Hypothyroidism Assessment: managed with med, stable Follows with endo, last office visit 10/19/23 * Assessment & Plan Note - Carrie Whitaker APRN.CNP - 11/08/2023 2:19 PM EDTAssociated Problem(s): GERD (gastroesophageal reflux disease) Assessment: managed with med, stable Follows up with PCP * Assessment & Plan Note - Carrie Whitaker APRN.CNP - 11/08/2023 2:19 PM EDTAssociated Problem(s): Gastroparesis Assessment: see HPI * Assessment & Plan Note - Carrie Whitaker APRN.CNP - 11/08/2023 2:19 PM EDTAssociated Problem(s): Asthma Assessment: Follows up with pulmonology, last office visit 10/18/23 Managed with inhaler Denies SOB * Assessment & Plan Note - Carrie Whitaker APRN.CNP - 11/08/2023 2:18 PM EDTAssociated Problem(s): Pulmonary sarcoidosis (HCC) Assessment: Follows up with pulmonology, last office visit 10/18/23 Managed with inhaler, stable Denies SOB * Assessment & Plan Note - Carrie Whitaker APRN.CNP - 11/08/2023 2:18 PM EDTAssociated Problem(s): HTN (hypertension) Assessment: managed with med, stable Follows up with PCP [facility] Diagnosis Pharyngeal dysphagia- Primary Dysphagia, pharyngeal phase Pharyngoesophageal dysphagia Dysphagia, pharyngoesophageal phase [facility] Diagnosis Chronic pulmonary aspiration, sequela [facility] Diagnosis Pharyngeal dysphagia- Primary Dysphagia, pharyngeal phase Malnutrition of moderate degree (HCC) Malnutrition of moderate degree [facility]* Diagnosis Muscle soreness- Primary Mylagia and myositis, unspecified [facility]* Diagnosis Muscle soreness- Primary Mylagia and myositis, unspecified [facility]* Diagnosis Pharyngoesophageal dysphagia- Primary Dysphagia, pharyngoesophageal phase Pharyngeal dysphagia Dysphagia, pharyngeal phase Nausea Nausea alone [facility] Additional Instructions I am glad that you are feeling better. You still need to see the GI doctor. They may or may not need to do the endoscopies depending on whether they think the colitis is the only cause for your problem. Antibiotics as well as pain medicine and nausea medicine have been prescribed. If there are problems or concerns, or if you are feeling worse, please do not hesitate to come back. We are happy to see you anytime.[facility] Work Phone: Reason for referral (narrative)* Outpatient Procedure (Routine) - Authorized Specialty Diagnoses / Procedures Referred By Mark jacobs Referred To Contact [facility] Diagnoses Sarcoidosis Dyspnea on exertion Procedures NITRIC OXIDE, EXHALED NITRIC [place] [address] [place] [address] [address] Referral ID Status Reason Start Date Expiration Date Visits Requested Visits Authorized [id number] Authorized Auto-Generat ed Referral 11/24/2021 12/24/2022 1 1 * Outpatient Procedure (Routine) - Authorized Specialty Diagnoses / Procedures Referred By Mark jacobs Referred To [facility] Diagnoses Sarcoidosis Dyspnea on exertion Procedures LUNG DIFFUSION CAPACITY (DLCO) [place] [address] [place] [address] [address] Referral ID Status Reason Start Date Expiration Date Visits Requested Visits Authorized [id number] Authorized Auto-Generat ed Referral 11/24/2021 12/24/2022 1 1 * Outpatient Procedure (Routine) - Authorized Specialty Diagnoses / Procedures Referred By Contac t Referred To Contact [facility] Diagnoses Sarcoidosis Dyspnea on exertion Procedures SPIROMETRY WITH DILATOR IF OBSTRUCTED BRNCDILAT RSPSE SPMTRY PRE&[place] [address] [place] [address] Respiratory [place] [address] [place] [address] Referral ID Status Reason Start Date Expiration Date Visits Requested Visits Authorized [id number] Authorized Auto-Generat ed Referral 11/24/2021 12/24/2022 1 1 [facility] for referral (narrative)* Outpatient Procedure (Routine) - Authorized Specialty Diagnoses / Procedures [facility] Diagnoses Moderate persistent asthma, unspecified whether complicated Pulmonary sarcoidosis (HCC) Procedures LUNG DIFFUSION CAPACITY (DLCO) [place] [address] [place] [address] [address] Referral ID Status Reason Start Date Expiration Date Visits Requested Visits Authorized [id number] Authorized Auto-Generat ed Referral 02/15/2023 03/16/2024 1 1 * Outpatient Procedure (Routine) - Authorized Specialty Diagnoses / Procedures [facility] Diagnoses Moderate persistent asthma, unspecified whether complicated Pulmonary sarcoidosis (HCC) Procedures SPIROMETRY WITH DILATOR IF OBSTRUCTED BRNCDILAT RSPSE SPMTRY PRE&POST-BRNCDILAT Smitha Vital APRN.CNP [address] [place] [address] [address] Referral ID Status Reason Start Date Expiration Date Visits Requested Visits Authorized [id number] Authorized Auto-Generat ed Referral 02/15/2023 03/16/2024 1 1 [facility] for referral (narrative)* Outpatient Procedure (Routine) - Authorized Specialty Diagnoses / Procedures Referred By Contac t Referred To Contact [facility] Diagnoses Nausea and vomiting, unspecified vomiting type Generalized abdominal pain Procedures EGD DIAGNOSTIC ESOPHAGOGASTRODUODENOSC OPY [place] [address] [place] [address] [facility] [place] [address] [place] [id number] Referral ID Status Reason Start Date Expiration Date Visits Requested Visits Authorized [id number] Authorized Auto-Generat ed Referral 03/22/2024 1 1 [facility] for referral (narrative)* Diagnostic Procedure Only (Routine) - Pending Review Specialty Diagnoses / Procedures Referred By Contac t Referred To Contact XR IMAGING Diagnoses Chronic pulmonary aspiration, sequela Procedures XR MODIFIED BARIUM SWALLOW W SPEECH THERAPY RADIOLOGIC EXAM SWALLOW FUNCTION CONTRAST STUDY Smitha Gramajo, MACHINE MAINTENANCE SUPERVISOR [address] [place] [address] [place] [address] Referral ID Status Reason Start Date Expiration Date Visits Requested Visits Authorized [id number] Pending Review Auto-Generat ed Referral 10/18/2023 11/16/2024 1 1 * Speech Therapy (Routine) - Authorized Specialty Diagnoses / Procedures Referred By Contac t Referred To Contact [facility] Diagnoses Chronic pulmonary aspiration, sequela Procedures CONSULT TO SPEECH THERAPY OFFICE/OUTPATIENT [facility] 60 MINUTES Smitha Gramajo APRN.MACHINE MAINTENANCE SUPERVISOR [address] [place] [address] [facility] [place] [address] [place] [id number] Referral ID Status Reason Start Date Expiration Date Visits Requested Visits Authorized [id number] Authorized Auto-Generat ed Referral 05/29/2023 05/28/2024 60 60 [facility] for referral (narrative)* Diagnostic Procedure Only (Routine) - Pending Review Specialty Diagnoses / Procedures Referred By Contac t Referred To Contact [facility] Diagnoses Nausea Procedures NM GASTRIC EMPTYING LIQUID GASTRIC EMPTYING STUDY Ganesh Richardson PA-C [address] [place] [address] [facility] [address] [phone] Referral ID Status Reason Start Date Expiration Date Visits Requested Visits Authorized [id number] Pending Review Auto-Generat ed Referral 10/27/2023 11/25/2024 1 1 [facility] for referral (narrative)* Diagnostic Procedure Only (Routine) - Closed Specialty Diagnoses / Procedures Referred By Contcecil jacobs Referred To Contact [facility] Diagnoses Nausea Procedures NM GASTRIC EMPTYING LIQUID GASTRIC EMPTYING STUDY Ganesh Richardson PA-C [address] [place] [address] [facility] [address] [place], [place] [phone] Referral ID Status Reason Start Date Expiration Date V isits Requested Visits Authorized [id number] Closed Auto-Generate d Referral 10/27/2023 11/25/2024 1 1 [facility] for referral (narrative)* Diagnostic Procedure Only (Routine) - Pending Review Specialty Diagnoses / Procedures Referred By Contac t Referred To Contact [facility] Diagnoses Nausea Procedures NM GASTRIC EMPTYING SOLID GASTRIC EMPTYING STUDY Ganesh Richardson PA-C [address] [place] [address] [facility] [address] [phone] Referral ID Status Reason Start Date Expiration Date Visits Requested Visits Authorized [id number] Pending Review Auto-Generat ed Referral 11/22/2023 12/21/2024 1 1 [facility] for referral (narrative)* Diagnostic Procedure Only (Routine) - Closed Specialty Diagnoses / Procedures Referred By Contac t Referred To Contact XR IMAGING Diagnoses Chronic pulmonary aspiration, sequela Procedures XR MODIFIED BARIUM SWALLOW W SPEECH THERAPY RADIOLOGIC EXAM SWALLOW FUNCTION CONTRAST STUDY Smitha Gramajo, FIREWORKS INSPECTOR.MACHINE MAINTENANCE SUPERVISOR [address] [place] [address] [place] [address] Referral ID Status Reason Start Date Expiration Date V isits Requested Visits Authorized [id number] Closed Auto-Generate d Referral 10/18/2023 11/16/2024 1 1 [facility] for referral (narrative)* Outpatient Procedure (Routine) - Authorized Specialty Diagnoses / Procedures Referred By Contac t Referred To Contact [facility] Diagnoses Pharyngeal dysphagia Procedures EGD - THERAPEUTIC, EUS, OR TUBE INTERVENTIONS EGD DILATION GASTRIC/DUODENAL STRICTURE Sara Horan MD [address] [place] [address] [facility] [place] [address] [place] [id number] Referral ID Status Reason Start Date Expiration Date Visits Requested Visits Authorized [id number] Authorized Auto-Generat ed Referral 12/05/2023 12/04/2024 1 1 * Outpatient Procedure (Routine) - Pending Review Specialty Diagnoses / Procedures Referred By Contac t Referred To Contact [facility] Diagnoses Pharyngeal dysphagia Procedures ECG COMPLETE ECG ROUTINE ECG W/LEAST 12 LDS W/I&R Sara Horan MD [address] [place] [address] [facility] [place] [address] [place] [address] Referral ID Status Reason Start Date Expiration Date Visits Requested Visits Authorized [id number] Pending Review Auto-Generat ed Referral 12/05/2023 12/04/2024 1 1 [facility] for referral (narrative)* Outpatient Procedure (Routine) - New Request Specialty Diagnoses / Procedures Referred By Contac t Referred To Contact [facility] Diagnoses Nausea Procedures ECG COMPLETE ECG ROUTINE ECG W/LEAST 12 LDS W/I&R Sara Horan MD [address] [place] [address] [address] [place] [address] Referral ID Status Reason Start Date Expiration Date Visits Requested Visits Authorized [id number] New Request Auto-Generat ed Referral 12/12/2023 12/11/2024 1 1 * Outpatient Procedure (Routine) - Closed Specialty Diagnoses / Procedures Referred By Contac t Referred To Contact [facility] Diagnoses Pharyngeal dysphagia Procedures EGD - THERAPEUTIC, EUS, OR TUBE INTERVENTIONS EGD DILATION GASTRIC/DUODENAL STRICTURE Sara Horan MD [address] [place] [address] [facility] [phone] [place] [address] Referral ID Status Reason Start Date Expiration Date V isits Requested Visits Authorized [id number] Closed Auto-Generate d Referral 12/05/2023 12/04/2024 1 1 [facility] for visit Narrative* Diagnostic Procedure Only (Routine) - Closed Specialty Diagnoses / Procedures Referred By Contac t Referred To Contact [facility]LECULAR [facility] FUNCTIONAL IMAGING Diagnoses Nausea Procedures NM GASTRIC EMPTYING LIQUID GASTRIC EMPTYING STUDY Ganesh Richardson PA-C [address] [place] [address] Molecular [facility] Functional Imaging [address] [place] [address] Referral ID Status Reason Start Date Expiration Date V isits Requested Visits Authorized [id number] Closed Auto-Generate d Referral 10/27/2023 11/25/2024 1 1 [facility] Outpatient Procedure (Routine) - Closed Specialty Diagnoses / Procedures Referred By Mark jacobs Referred To Contact [facility] Diagnoses Pharyngeal dysphagia Procedures EGD - THERAPEUTIC, EUS, OR TUBE INTERVENTIONS EGD DILATION GASTRIC/DUODENAL STRICTURE Sara Horan MD [address] [place] [address] [facility] [place] [address] [place] [phone] Referral ID Status Reason Start Date Expiration Date V isits Requested Visits Authorized [id number] Closed Auto-Generate d Referral 12/05/2023 12/04/2024 1 1 [facility] Summary Purpose Family History No Family History Records FoundNo Family History Records FoundNo Family History Records FoundNo Family History Records FoundNo Family History Records FoundNo Family History Records Found Advance Directives No Advanced Directives Records FoundDocuments on File Type Date Recorded Patient Insulator Technician Expl anation Advance Directive(s) 08/14/2018 5:42 AM Advance Directive(s) 08/07/2018 8:47 AM Documents on File Type Date Recorded Patient Insulator Technician Expl anation Advance Directive(s) 08/14/2018 5:42 AM Advance Directive(s) 08/07/2018 8:47 AM Documents on File Type Date Recorded Patient Insulator Technician Expl anation Advance Directive(s) 08/07/2018 8:47 AM Documents on File Type Date Recorded Patient Insulator Technician Expl anation Advance Directive(s) 08/07/2018 8:47 AM Advance Directive Response Recorded Date/ Time Advance Directives No January 2:46pm Documents on File Type Date Recorded Patient Insulator Technician Expl anation Advance Directive(s) 05/18/2023 7:58 AM Advance Directive(s) 08/07/2018 8:47 AM Documents on File Type Date Recorded Patient Insulator Technician Expl anation Advance Directive(s) 05/18/2023 7:58 AM Advance Directive(s) 08/07/2018 8:47 AM Date Activated Date Inactivated Comments 08/28/2023 12:35 AM 09/02/2023 5:46 PM Question Answer Comments Full Code Order Discussed With: Patient Date Activated Date Inactivated Comments 09/16/2023 8:49 PM 09/20/2023 7:43 PM Question Answer Comments Full Code Order Discussed With: Patient Date Activated Date Inactivated Comments 08/28/2023 12:35 AM 09/02/2023 5:46 PM Question Answer Comments Full Code Order Discussed With: Patient Date Activated Date Inactivated Comments 09/16/2023 8:49 PM 09/20/2023 7:43 PM Date Activated Date Inactivated Comments 08/28/2023 12:35 AM 09/02/2023 5:46 PM Question Answer Comments Full Code Order Discussed With: Patient Reason for Referral Specialty Diagnoses / Procedures Referred By Contac t Referred To Contact CT IMAGING Diagnoses Papillary thyroid carcinoma (HCC) Procedures CT NECK SOFT TISSUE W IVCON CT SOFT TISSUE NECK W/CONTRAST MATERIAL Natalia Torres MD [address] [place] [address] Ct Imaging Referral ID Status Reason Start Date Expiration Date V isits Requested Visits Authorized [id number] Closed Auto-Generate d Referral 05/20/2022 12/18/2022 1 1 Specialty Diagnoses / Procedures Referred By Contac t Referred To Contact CT IMAGING Diagnoses Papillary thyroid carcinoma (HCC) Procedures CT CHEST W IVCON DIAGNOSTIC COMPUTED TOMOGRAPHY THORAX W/CONTRAST Natalia Torres MD [address] [place] [address] Ct Imaging Referral ID Status Reason Start Date Expiration Date V isits Requested Visits Authorized [id number] Closed Auto-Generate d Referral 05/20/2022 12/18/2022 1 1 Specialty Diagnoses / Procedures Referred By Contac t Referred To Contact CT IMAGING Diagnoses Sarcoidosis of lung (HCC) Procedures CT CHEST WO IVCON DIAGNOSTIC COMPUTED TOMOGRAPHY THORAX W/O [place]ía [place] [address] [place] [address] [place] [address] Referral ID Status Reason Start Date Expiration Date Visits Requested Visits Authorized [id number] Authorized Auto-Generat ed Referral 07/20/2023 08/18/2024 1 1 Specialty Diagnoses / Procedures Referred By Contac t Referred To Contact Nutrition Diagnoses Severe protein-calorie malnutrition (HCC) Procedures CONSULT TO NUTRITION THERAPY MEDICAL NUTRITION ASSMT&IVNTJ INDIV EACH 15 OR Ana, Hebrew, MD [address] [place] [address] Referral ID Status Reason Start Date Expiration Date Visits Requested Visits Authorized [id number] Authorized PCP Requested Referral 09/07/2023 09/06/2024 1 4 Specialty Diagnoses / Procedures Referred By Contac t Referred To Contact Gastroenterology Diagnoses Gastroparesis Procedures CONSULT TO GASTROENTEROLOGY OFFICE/OUTPATIENT [facility] 60 MINUTES Sara Horan MD [address] [id number] Referral ID Status Reason Start Date Expiration Date Visits Requested Visits Authorized [id number] Authorized PCP Requested Referral 10/15/2023 10/14/2024 1 1 Specialty Diagnoses / Procedures Referred By Contac t Referred To Contact [facility] Diagnoses Nausea Gastroparesis Procedures ECG COMPLETE ECG ROUTINE ECG W/LEAST 12 LDS W/I&R Sara Horan MD [address] [place] [address] [address] Referral ID Status Reason Start Date Expiration Date Visits Requested Visits Authorized [id number] Pending Review Auto-Generat ed Referral 10/15/2023 10/14/2024 1 1 Specialty Diagnoses / Procedures Referred By Contac t Referred To Contact MOLECULAR & FUNCTIONAL IMAGING Diagnoses Nausea Procedures NM GASTRIC EMPTYING SOLID GASTRIC EMPTYING STUDY Sara Horan MD [address] [place] [address] Molecular & Functional Imaging [address] [id number] Referral ID Status Reason Start Date Expiration Date Visits Requested Visits Authorized [id number] Pending Review Auto-Generat ed Referral 10/15/2023 11/13/2024 1 1 Specialty Diagnoses / Procedures Referred By Contac t Referred To Contact CT IMAGING Diagnoses Papillary thyroid carcinoma (HCC) Procedures CT NECK SOFT TISSUE W IVCON CT SOFT TISSUE NECK W/CONTRAST MATERIAL Natalia Torres MD [address] [place] [address] Ct Imaging [place] [address] Referral ID Status Reason Start Date Expiration Date V isits Requested Visits Authorized [id number] Closed Auto-Generate d Referral 08/31/2023 03/30/2024 1 1 Specialty Diagnoses / Procedures Referred By Contac t Referred To Contact CT IMAGING Diagnoses Papillary thyroid carcinoma (HCC) Procedures CT CHEST W IVCON DIAGNOSTIC COMPUTED TOMOGRAPHY THORAX W/CONTRAST Natalia Torres MD [address] [place] [address] Ct Imaging [place] [address] Referral ID Status Reason Start Date Expiration Date Visits Requested Visits Authorized [id number] Pending Review Auto-Generat ed Referral 11/24/2024 1 1 Referral ID Status Reason Start Date Expiration Date Visits Requested Visits Authorized [id number] Pending Review Auto-Generat ed Referral 4 11/24/2024 1 1 Specialty Diagnoses / Procedures Referred By Contac t Referred To Contact Diagnoses Gastroparesis Gastroesophageal reflux disease, unspecified whether esophagitis present Severe protein-calorie malnutrition (HCC) Pre-operative examination Procedures REFER TO PACC - PRE ANESTHESIA CONSULTATION CLINIC OFFICE/OUTPATIENT [facility] 60 MINUTES Leonard Mckeon MD, PhD [address] [place] [address] Referral ID Status Reason Start Date Expiration Date Visits Requested Visits Authorized [id number] Authorized PCP Requested Referral 11/02/2023 11/01/2024 1 1 Chief Complaint and Reason for Visit Chief Complaint Abd pain Chief Complaint Abd pain k29.70 k22.2 k21.9 Additional Source Comments (unrecognized sect ion and content) No Status Records Found INFORMATION SOURCE (unrecogn ized section and content) DATE CREATED AUTHOR 11/22/2017 [facility] DATE CREATED AUTHOR AUTHOR'S ORGANIZ ATION 03/05/2023 [facility] DATE CREATED AUTHOR AUTHOR'S ORGANIZ ATION 07/05/2023 [facility] DATE CREATED AUTHOR AUTHOR'S ORGANIZ ATION 01/07/2024 [facility] DATE CREATED AUTHOR AUTHOR'S ORGANIZ ATION 01/23/2024 [facility] DATE CREATED AUTHOR AUTHOR'S ORGANIZ ATION 01/27/2024 [facility] l Source Comments (unrecognize d section and content) In the event this informatio n is protected by the Federal Confidentiality of Alcohol and Drug Abuse Patient Records regulations: The Federal rules restrict any use of the information to criminally investigate or prosecute any alcohol or drug abuse patient.[facility] the event this information is protected by the Federal Confidentiality of Alcohol and Drug Abuse Patient Records regulations: The Federal rules restrict any use of the information to criminally investigate or prosecute any alcohol or drug abuse patient.[facility] the event this information is protected by the Federal Confidentiality of Alcohol and Drug Abuse Patient Records regulations: The Federal rules restrict any use of the information to criminally investigate or prosecute any alcohol or drug abuse patient.[facility] the event this information is protected by the Federal Confidentiality of Alcohol and Drug Abuse Patient Records regulations: The Federal rules restrict any use of the information to criminally investigate or prosecute any alcohol or drug abuse patient.[facility] CenterIn the event this information is protected by the Federal Confidentiality of Alcohol and Drug Abuse Patient Records regulations: The Federal rules restrict any use of the information to criminally investigate or prosecute any alcohol or drug abuse patient.[facility] CenterIn the event this information is protected by the Federal Confidentiality of Alcohol and Drug Abuse Patient Records regulations: The Federal rules restrict any use of the information to criminally investigate or prosecute any alcohol or drug abuse patient.[facility] CenterIn the event this information is protected by the Federal Confidentiality of Alcohol and Drug Abuse Patient Records regulations: The Federal rules restrict any use of the information to criminally investigate or prosecute any alcohol or drug abuse patient.[facility] CenterIn the event this information is protected by the Federal Confidentiality of Alcohol and Drug Abuse Patient Records regulations: The Federal rules restrict any use of the information to criminally investigate or prosecute any alcohol or drug abuse patient.[facility] CenterIn the event this information is protected by the Federal Confidentiality of Alcohol and Drug Abuse Patient Records regulations: The Federal rules restrict any use of the information to criminally investigate or prosecute any alcohol or drug abuse patient.[facility] CenterIn the event this information is protected by the Federal Confidentiality of Alcohol and Drug Abuse Patient Records regulations: The Federal rules restrict any use of the information to criminally investigate or prosecute any alcohol or drug abuse patient.[facility] CenterIn the event this information is protected by the Federal Confidentiality of Alcohol and Drug Abuse Patient Records regulations: The Federal rules restrict any use of the information to criminally investigate or prosecute any alcohol or drug abuse patient.[facility] CenterIn the event this information is protected by the Federal Confidentiality of Alcohol and Drug Abuse Patient Records regulations: The Federal rules restrict any use of the information to criminally investigate or prosecute any alcohol or drug abuse patient.[facility] the event this information is protected by the Federal Confidentiality of Alcohol and Drug Abuse Patient Records regulations: The Federal rules restrict any use of the information to criminally investigate or prosecute any alcohol or drug abuse patient.[facility] CenterIn the event this information is protected by the Federal Confidentiality of Alcohol and Drug Abuse Patient Records regulations: The Federal rules restrict any use of the information to criminally investigate or prosecute any alcohol or drug abuse patient.[facility] CenterIn the event this information is protected by the Federal Confidentiality of Alcohol and Drug Abuse Patient Records regulations: The Federal rules restrict any use of the information to criminally investigate or prosecute any alcohol or drug abuse patient.[facility] CenterIn the event this information is protected by the Federal Confidentiality of Alcohol and Drug Abuse Patient Records regulations: The Federal rules restrict any use of the information to criminally investigate or prosecute any alcohol or drug abuse patient.[facility] CenterIn the event this information is protected by the Federal Confidentiality of Alcohol and Drug Abuse Patient Records regulations: The Federal rules restrict any use of the information to criminally investigate or prosecute any alcohol or drug abuse patient.[facility] CenterIn the event this information is protected by the Federal Confidentiality of Alcohol and Drug Abuse Patient Records regulations: The Federal rules restrict any use of the information to criminally investigate or prosecute any alcohol or drug abuse patient.[facility] CenterIn the event this information is protected by the Federal Confidentiality of Alcohol and Drug Abuse Patient Records regulations: The Federal rules restrict any use of the information to criminally investigate or prosecute any alcohol or drug abuse patient.[facility] CenterIn the event this information is protected by the Federal Confidentiality of Alcohol and Drug Abuse Patient Records regulations: The Federal rules restrict any use of the information to criminally investigate or prosecute any alcohol or drug abuse patient.[facility] CenterIn the event this information is protected by the Federal Confidentiality of Alcohol and Drug Abuse Patient Records regulations: The Federal rules restrict any use of the information to criminally investigate or prosecute any alcohol or drug abuse patient.[facility] CenterIn the event this information is protected by the Federal Confidentiality of Alcohol and Drug Abuse Patient Records regulations: The Federal rules restrict any use of the information to criminally investigate or prosecute any alcohol or drug abuse patient.[facility] CenterIn the event this information is protected by the Federal Confidentiality of Alcohol and Drug Abuse Patient Records regulations: The Federal rules restrict any use of the information to criminally investigate or prosecute any alcohol or drug abuse patient.[facility] CenterIn the event this information is protected by the Federal Confidentiality of Alcohol and Drug Abuse Patient Records regulations: The Federal rules restrict any use of the information to criminally investigate or prosecute any alcohol or drug abuse patient.[facility] CenterIn the event this information is protected by the Federal Confidentiality of Alcohol and Drug Abuse Patient Records regulations: The Federal rules restrict any use of the information to criminally investigate or prosecute any alcohol or drug abuse patient.[facility] CenterIn the event this information is protected by the Federal Confidentiality of Alcohol and Drug Abuse Patient Records regulations: The Federal rules restrict any use of the information to criminally investigate or prosecute any alcohol or drug abuse patient.[facility] CenterIn the event this information is protected by the Federal Confidentiality of Alcohol and Drug Abuse Patient Records regulations: The Federal rules restrict any use of the information to criminally investigate or prosecute any alcohol or drug abuse patient.[facility] CenterIn the event this information is protected by the Federal Confidentiality of Alcohol and Drug Abuse Patient Records regulations: The Federal rules restrict any use of the information to criminally investigate or prosecute any alcohol or drug abuse patient.[facility] CenterIn the event this information is protected by the Federal Confidentiality of Alcohol and Drug Abuse Patient Records regulations: The Federal rules restrict any use of the information to criminally investigate or prosecute any alcohol or drug abuse patient.[facility] CenterIn the event this information is protected by the Federal Confidentiality of Alcohol and Drug Abuse Patient Records regulations: The Federal rules restrict any use of the information to criminally investigate or prosecute any alcohol or drug abuse patient.[facility] CenterIn the event this information is protected by the Federal Confidentiality of Alcohol and Drug Abuse Patient Records regulations: The Federal rules restrict any use of the information to criminally investigate or prosecute any alcohol or drug abuse patient.[facility] CenterIn the event this information is protected by the Federal Confidentiality of Alcohol and Drug Abuse Patient Records regulations: The Federal rules restrict any use of the information to criminally investigate or prosecute any alcohol or drug abuse patient.[facility] CenterIn the event this information is protected by the Federal Confidentiality of Alcohol and Drug Abuse Patient Records regulations: The Federal rules restrict any use of the information to criminally investigate or prosecute any alcohol or drug abuse patient.[facility] CenterIn the event this information is protected by the Federal Confidentiality of Alcohol and Drug Abuse Patient Records regulations: The Federal rules restrict any use of the information to criminally investigate or prosecute any alcohol or drug abuse patient.[facility] CenterIn the event this information is protected by the Federal Confidentiality of Alcohol and Drug Abuse Patient Records regulations: The Federal rules restrict any use of the information to criminally investigate or prosecute any alcohol or drug abuse patient.[facility] CenterIn the event this information is protected by the Federal Confidentiality of Alcohol and Drug Abuse Patient Records regulations: The Federal rules restrict any use of the information to criminally investigate or prosecute any alcohol or drug abuse patient.[facility] CenterIn the event this information is protected by the Federal Confidentiality of Alcohol and Drug Abuse Patient Records regulations: The Federal rules restrict any use of the information to criminally investigate or prosecute any alcohol or drug abuse patient.[facility] CenterIn the event this information is protected by the Federal Confidentiality of Alcohol and Drug Abuse Patient Records regulations: The Federal rules restrict any use of the information to criminally investigate or prosecute any alcohol or drug abuse patient.[facility] CenterIn the event this information is protected by the Federal Confidentiality of Alcohol and Drug Abuse Patient Records regulations: The Federal rules restrict any use of the information to criminally investigate or prosecute any alcohol or drug abuse patient.[facility] CenterIn the event this information is protected by the Federal Confidentiality of Alcohol and Drug Abuse Patient Records regulations: The Federal rules restrict any use of the information to criminally investigate or prosecute any alcohol or drug abuse patient.[facility] CenterIn the event this information is protected by the Federal Confidentiality of Alcohol and Drug Abuse Patient Records regulations: The Federal rules restrict any use of the information to criminally investigate or prosecute any alcohol or drug abuse patient.[facility] CenterIn the event this information is protected by the Federal Confidentiality of Alcohol and Drug Abuse Patient Records regulations: The Federal rules restrict any use of the information to criminally investigate or prosecute any alcohol or drug abuse patient.[facility] CenterIn the event this information is protected by the Federal Confidentiality of Alcohol and Drug Abuse Patient Records regulations: The Federal rules restrict any use of the information to criminally investigate or prosecute any alcohol or drug abuse patient.[facility] CenterIn the event this information is protected by the Federal Confidentiality of Alcohol and Drug Abuse Patient Records regulations: The Federal rules restrict any use of the information to criminally investigate or prosecute any alcohol or drug abuse patient.[facility] CenterIn the event this information is protected by the Federal Confidentiality of Alcohol and Drug Abuse Patient Records regulations: The Federal rules restrict any use of the information to criminally investigate or prosecute any alcohol or drug abuse patient.[facility] CenterIn the event this information is protected by the Federal Confidentiality of Alcohol and Drug Abuse Patient Records regulations: The Federal rules restrict any use of the information to criminally investigate or prosecute any alcohol or drug abuse patient.[facility] CenterIn the event this information is protected by the Federal Confidentiality of Alcohol and Drug Abuse Patient Records regulations: The Federal rules restrict any use of the information to criminally investigate or prosecute any alcohol or drug abuse patient.[facility] CenterIn the event this information is protected by the Federal Confidentiality of Alcohol and Drug Abuse Patient Records regulations: The Federal rules restrict any use of the information to criminally investigate or prosecute any alcohol or drug abuse patient.[facility] CenterIn the event this information is protected by the Federal Confidentiality of Alcohol and Drug Abuse Patient Records regulations: The Federal rules restrict any use of the information to criminally investigate or prosecute any alcohol or drug abuse patient.[facility] CenterIn the event this information is protected by the Federal Confidentiality of Alcohol and Drug Abuse Patient Records regulations: The Federal rules restrict any use of the information to criminally investigate or prosecute any alcohol or drug abuse patient.[facility] CenterIn the event this information is protected by the Federal Confidentiality of Alcohol and Drug Abuse Patient Records regulations: The Federal rules restrict any use of the information to criminally investigate or prosecute any alcohol or drug abuse patient.[facility] CenterIn the event this information is protected by the Federal Confidentiality of Alcohol and Drug Abuse Patient Records regulations: The Federal rules restrict any use of the information to criminally investigate or prosecute any alcohol or drug abuse patient.[facility] CenterIn the event this information is protected by the Federal Confidentiality of Alcohol and Drug Abuse Patient Records regulations: The Federal rules restrict any use of the information to criminally investigate or prosecute any alcohol or drug abuse patient.[facility] CenterIn the event this information is protected by the Federal Confidentiality of Alcohol and Drug Abuse Patient Records regulations: The Federal rules restrict any use of the information to criminally investigate or prosecute any alcohol or drug abuse patient.[facility] CenterIn the event this information is protected by the Federal Confidentiality of Alcohol and Drug Abuse Patient Records regulations: The Federal rules restrict any use of the information to criminally investigate or prosecute any alcohol or drug abuse patient.[facility] CenterIn the event this information is protected by the Federal Confidentiality of Alcohol and Drug Abuse Patient Records regulations: The Federal rules restrict any use of the information to criminally investigate or prosecute any alcohol or drug abuse patient.[facility] CenterIn the event this information is protected by the Federal Confidentiality of Alcohol and Drug Abuse Patient Records regulations: The Federal rules restrict any use of the information to criminally investigate or prosecute any alcohol or drug abuse patient.[facility] CenterIn the event this information is protected by the Federal Confidentiality of Alcohol and Drug Abuse Patient Records regulations: The Federal rules restrict any use of the information to criminally investigate or prosecute any alcohol or drug abuse patient.[facility] CenterIn the event this information is protected by the Federal Confidentiality of Alcohol and Drug Abuse Patient Records regulations: The Federal rules restrict any use of the information to criminally investigate or prosecute any alcohol or drug abuse patient.[facility] CenterIn the event this information is protected by the Federal Confidentiality of Alcohol and Drug Abuse Patient Records regulations: The Federal rules restrict any use of the information to criminally investigate or prosecute any alcohol or drug abuse patient.[facility] CenterIn the event this information is protected by the Federal Confidentiality of Alcohol and Drug Abuse Patient Records regulations: The Federal rules restrict any use of the information to criminally investigate or prosecute any alcohol or drug abuse patient.[facility] CenterIn the event this information is protected by the Federal Confidentiality of Alcohol and Drug Abuse Patient Records regulations: The Federal rules restrict any use of the information to criminally investigate or prosecute any alcohol or drug abuse patient.[facility] the event this information is protected by the Federal Confidentiality of Alcohol and Drug Abuse Patient Records regulations: The Federal rules restrict any use of the information to criminally investigate or prosecute any alcohol or drug abuse patient.[facility] CenterIn the event this information is protected by the Federal Confidentiality of Alcohol and Drug Abuse Patient Records regulations: The Federal rules restrict any use of the information to criminally investigate or prosecute any alcohol or drug abuse patient.[facility] Center[facility] the event this information is protected by the Federal Confidentiality of Alcohol and Drug Abuse Patient Records regulations: The Federal rules restrict any use of the information to criminally investigate or prosecute any alcohol or drug abuse patient.[facility] the event this information is protected by the Federal Confidentiality of Alcohol and Drug Abuse Patient Records regulations: The Federal rules restrict any use of the information to criminally investigate or prosecute any alcohol or drug abuse patient.[facility] the event this information is protected by the Federal Confidentiality of Alcohol and Drug Abuse Patient Records regulations: The Federal rules restrict any use of the information to criminally investigate or prosecute any alcohol or drug abuse patient.[facility] CenterIn the event this information is protected by the Federal Confidentiality of Alcohol and Drug Abuse Patient Records regulations: The Federal rules restrict any use of the information to criminally investigate or prosecute any alcohol or drug abuse patient.[facility] CenterIn the event this information is protected by the Federal Confidentiality of Alcohol and Drug Abuse Patient Records regulations: The Federal rules restrict any use of the information to criminally investigate or prosecute any alcohol or drug abuse patient.[facility] CenterIn the event this information is protected by the Federal Confidentiality of Alcohol and Drug Abuse Patient Records regulations: The Federal rules restrict any use of the information to criminally investigate or prosecute any alcohol or drug abuse patient.[facility] CenterIn the event this information is protected by the Federal Confidentiality of Alcohol and Drug Abuse Patient Records regulations: The Federal rules restrict any use of the information to criminally investigate or prosecute any alcohol or drug abuse patient.[facility] CenterIn the event this information is protected by the Federal Confidentiality of Alcohol and Drug Abuse Patient Records regulations: The Federal rules restrict any use of the information to criminally investigate or prosecute any alcohol or drug abuse patient.[facility] CenterIn the event this information is protected by the Federal Confidentiality of Alcohol and Drug Abuse Patient Records regulations: The Federal rules restrict any use of the information to criminally investigate or prosecute any alcohol or drug abuse patient.[facility] CenterIn the event this information is protected by the Federal Confidentiality of Alcohol and Drug Abuse Patient Records regulations: The Federal rules restrict any use of the information to criminally investigate or prosecute any alcohol or drug abuse patient.[facility] CenterIn the event this information is protected by the Federal Confidentiality of Alcohol and Drug Abuse Patient Records regulations: The Federal rules restrict any use of the information to criminally investigate or prosecute any alcohol or drug abuse patient.[facility] Reason for Visit (unrecogniz ed section and content) Reason Comments Refill Request Reason Comments Pulmonary sarcoidosis Dyspnea On Exertion Reason Comments Medication Request Reason Comments Spirometry Specialty Diagnoses / Procedures Referred By Contac t Referred To Contact [facility] Diagnoses Sarcoidosis Dyspnea on exertion Procedures NITRIC OXIDE, EXHALED NITRIC [place] [address] [place] [address] [facility] [place] [address] [place] [address] Referral ID Status Reason Start Date Expiration Date V isits Requested Visits Authorized [id number] Closed Auto-Generate d Referral 11/24/2021 12/24/2022 1 1 Reason Comments Pulmonary Sarcoidosis Shortness of Breath Specialty Diagnoses / Procedures Referred By Contac t Referred To Contact [facility] Diagnoses Sarcoidosis Dyspnea on exertion Procedures LUNG DIFFUSION CAPACITY (DLCO) [place] [address] [place] [address] [facility] [place] [address] [place] [address] Referral ID Status Reason Start Date Expiration Date V isits Requested Visits Authorized [id number] Closed Auto-Generate d Referral 11/24/2021 12/24/2022 1 1 Reason Comments Established Patient Thyroid cancer follo w up.pt have some breathing issues,she would like to discuss.pt also have concerns with weight loss. Specialty Diagnoses / Procedures Referred By Contac t Referred To Contact CT IMAGING Diagnoses Papillary thyroid carcinoma (HCC) Procedures CT NECK SOFT TISSUE W IVCON CT SOFT TISSUE NECK W/CONTRAST MATERIAL Natalia Torres MD [address] [place] [address] Ct Imaging Referral ID Status Reason Start Date Expiration Date V isits Requested Visits Authorized [id number] Closed Auto-Generate d Referral 05/20/2022 12/18/2022 1 [address] Specialty Diagnoses / Procedures Referred By Contac t Referred To Contact CT IMAGING Diagnoses Papillary thyroid carcinoma (HCC) Procedures CT CHEST W IVCON DIAGNOSTIC COMPUTED TOMOGRAPHY THORAX W/CONTRAST Natalia Torres MD [address] [place] [address] Ct Imaging Referral ID Status Reason Start Date Expiration Date V isits Requested Visits Authorized [id number] Closed Auto-Generate d Referral 05/20/2022 12/18/2022 1 1 Reason Comments New Patient Evaluation Specialty Diagnoses / Procedures Referred By Contac t Referred To Contact Allergy Diagnoses Allergic rhinitis, unspecified seasonality, unspecified trigger Sinus disease Procedures CONSULT TO ALLERGY/IMMUNOLOGY OFFICE/OUTPATIENT [facility] 60-[place] [address] [place] [address] Referral ID Status Reason Start Date Expiration Date Visits Requested Visits Authorized [id number] Pending Review PCP Requested Referral 07/19/2022 07/19/2023 1 1 Reason Comments Established Patient Follow-Up Reason Comments Sarcoidosis Reason Comments New Patient Consult Specialty Diagnoses / Procedures Referred By Contac t Referred To Contact Gastroenterology Diagnoses Papillary thyroid carcinoma (HCC) Procedures CONSULT TO GASTROENTEROLOGY OFFICE/OUTPATIENT [facility] 60-74 MINUTES Natalia Torres MD [address] [place] [address] Referral ID Status Reason Start Date Expiration Date Visits Requested Visits Authorized [id number] Pending Review PCP Requested Referral 03/02/2023 02/29/2024 1 1 Reason Comments Results Specialty Diagnoses / Procedures Referred By Contac t Referred To Contact [facility] Diagnoses Moderate persistent asthma, unspecified whether complicated Pulmonary sarcoidosis (HCC) Procedures SPIROMETRY WITH DILATOR IF OBSTRUCTED BRNCDILAT RSPSE SPMTRY PRE&POST-BRNCDILAT ADMN Smitha Gramajo, FIREWORKS INSPECTOR.MACHINE MAINTENANCE SUPERVISOR [address] [place] [address] [address] Referral ID Status Reason Start Date Expiration Date V isits Requested Visits Authorized [id number] Closed Auto-Generate d Referral 02/15/2023 03/16/2024 1 1 Specialty Diagnoses / Procedures Referred By Contac t Referred To Contact [facility] Diagnoses Moderate persistent asthma, unspecified whether complicated Pulmonary sarcoidosis (HCC) Procedures LUNG DIFFUSION CAPACITY (DLCO) DIFFUSING CAPACITY Smitha Gramajo, FIREWORKS INSPECTOR.MACHINE MAINTENANCE SUPERVISOR [address] [place] [address] [address] Referral ID Status Reason Start Date Expiration Date V isits Requested Visits Authorized [id number] Closed Auto-Generate d Referral 02/15/2023 03/16/2024 1 1 Reason Comments Asthma Reason Comments Pre-Op Visit Reason Comments New Patient Dysphagia Reason Comments New Patient New patient consult Reason Comments New Patient New patient consult Nutrition Assessment Reason Comments Appointment Reason Comments orders for EN and supplies Specialty Diagnoses / Procedures Referred By Contac t Referred To Contact CT IMAGING Diagnoses Sarcoidosis of lung (HCC) Procedures CT CHEST WO IVCON DIAGNOSTIC COMPUTED TOMOGRAPHY THORAX W/[place] [address] [place] [address] [place] [address] Referral ID Status Reason Start Date Expiration Date V isits Requested Visits Authorized [id number] Closed Auto-Generate d Referral 07/20/2023 08/18/2024 1 1 Reason Comments Asthma Allergies Follow Up Reason Comments Asthma Reason Comments Established Patient Follow-Up Thyroid f/ u Reason Comments New Patient Reason Comments Follow Up Check Patient Condit ion/Patient Education. Specialty Diagnoses / Procedures Referred By Contac t Referred To Contact CT IMAGING Diagnoses Papillary thyroid carcinoma (HCC) Procedures CT CHEST W IVCON DIAGNOSTIC COMPUTED TOMOGRAPHY THORAX W/CONTRAST Natalia Torres MD [address] [place] [id number] Imaging [place] [address] Referral ID Status Reason Start Date Expiration Date V isits Requested Visits Authorized [id number] Closed Auto-Generate d Referral 08/31/2023 03/30/2024 1 1 Reason Comments Post Op Reason Comments Established Patient Follow-Up Reason Comments Radiology [place] Specialty Diagnoses / Procedures Referred By Contac t Referred To Contact MOLECULAR & FUNCTIONAL IMAGING Diagnoses Nausea Procedures NM GASTRIC EMPTYING SOLID GASTRIC EMPTYING STUDY Sara Horan MD [address] [place] [address] Molecular & Functional Imaging [address] [id number] Referral ID Status Reason Start Date Expiration Date V isits Requested Visits Authorized [id number] Closed Auto-Generate d Referral 10/15/2023 11/13/2024 1 1 Reason Comments Tube Feeding Clogged Reason Comments Pre Op Education G-POEM(Tentative for 11/13/2023 Reason Comments 11/13/2023 POP/G-POEM Reason Comments Dysphagia Specialty Diagnoses / Procedures Referred By Contac t Referred To Contact XR IMAGING Diagnoses Chronic pulmonary aspiration, sequela Procedures XR MODIFIED BARIUM SWALLOW W SPEECH THERAPY RADIOLOGIC EXAM SWALLOW FUNCTION CONTRAST STUDY Smitha Gramajo, FIREWORKS INSPECTOR.MACHINE MAINTENANCE SUPERVISOR [address] [place] [address] Xr Imaging [facility] Referral ID Status Reason Start Date Expiration Date V isits Requested Visits Authorized [id number] Closed Auto-Generate d Referral 10/18/2023 11/16/2024 1 1 Reason Comments Radio GI Main HB6 Specialty Diagnoses / Procedures Referred By Contac t Referred To Contact XR IMAGING Diagnoses Chronic pulmonary aspiration, sequela Procedures XR MODIFIED BARIUM SWALLOW W SPEECH THERAPY RADIOLOGIC EXAM SWALLOW FUNCTION CONTRAST STUDY Smitha Gramajo, FIREWORKS INSPECTOR.MACHINE MAINTENANCE SUPERVISOR [address] [place] [address] [place] [address] Reason Comments Education Of Patient/family Reason Comments Established Patient Follow up Reason Comments Patient Question Constipation Care Teams (unrecognized sec tion and content) Automotive Electrician Relationship Specialty Start Date End Date Milton Mancini MD [address] [place] [address] PCP - General [facility] 01/21/19 [place] [address] [place] [address] Specialty [place] Hydraulic Press Operator Radiation Oncology 10/08/18 Diego Moreno MD Physician Radiation Oncology 10/08/18 Alicia Worley, RN [address] [place] [id number] Specialty [place] Hy[employer]ulic Press Operator Hematology/Oncology 02/21/20 Automotive Electrician Relationship Specialty Start Date End Date Milton Mancini MD [address] [place] [address] PCP - General [facility] 01/21/19 [place] [address] [place] [address] Specialty [place] Hydraulic Press Operator Radiation Oncology 10/08/18 Diego Moreno MD Physician Radiation Oncology 10/08/18 Annette Barton, RN [address] [place], [place] [id number] Specialty [place] Hy[employer]ulic Press Operator Hematology/Oncology 09/09/21 Dori Borja, RN Specialty [place] Hy[employer]ulic Press Operator Hematology/Oncology 11/18/21 Automotive Electrician Relationship Specialty Start Date End Date Milton Mancini MD [address] [place] [address] PCP - General Family Practice 01/21/19 [place] [address] [place] [address] Specialty [place] Hy[employer]ulic Press Operator Radiation Oncology 10/08/18 Diego Moreno MD Physician Radiation Oncology 10/08/18 Annette Barton, RN [address] [place] [address] Specialty [place] Hy[employer]ulic Press Operator Hematology/Oncology 09/09/21 Dori Borja, RN Specialty [place] Hy[employer]ulic Press Operator Hematology/Oncology 11/18/21 Automotive Electrician Relationship Specialty Start Date End Date Milton Mancini MD [address] [place] [address] PCP - General Family Medicine 01/21/19 [place] [address] [place] [address] Specialty [place] Hy[employer]ulic Press Operator Radiation Oncology 10/08/18 Diego Moreno MD Physician Radiation Oncology 10/08/18 Annette Barton, RN [address] [place] [address] Specialty [place] Hydraulic Press Operator Hematology/Oncology 09/09/21 Dori Borja, RN Specialty [place] Hydraulic Press Operator Hematology/Oncology 11/18/21 Automotive Electrician Relationship Specialty Start Date End Date Milton Mancini MD [address] [place] [address] PCP - General Family Medicine 01/21/19 [place] [address] [place] [address] Specialty [place] Hy[employer]ulic Press Operator Radiation Oncology 10/08/18 Diego Moreno MD Physician Radiation Oncology 10/08/18 Annette Barton, RN [address] [place] [address] Specialty [place] Hydraulic Press Operator Hematology/Oncology 09/09/21 Dori Borja, RN Specialty [place] Hydraulic Press Operator Hematology/Oncology 11/18/21 Automotive Electrician Relationship Specialty Start Date End Date Milton Mancini MD [address] [place] [address] PCP - General Family Medicine 01/21/19 [place] [address] [place], [place] [id number] Specialty [place] Hydraulic Press Operator Radiation Oncology 10/08/18 Diego Moreno MD Physician Radiation Oncology 10/08/18 Annette Barton, [place] [address] [place] [address] Specialty [place] Hydraulic Press Operator Hematology/Oncology 09/09/21 Dori Borja, RN Specialty [place] Hydraulic Press Operator Hematology/Oncology 11/18/21 Automotive Electrician Relationship Specialty Start Date End Date Milton Mancini MD [address] [place] [address] PCP - General Family Medicine 01/21/19 [place] [address] [place] [address] Specialty [place] Hydraulic Press Operator Radiation Oncology 10/08/18 Annette Barton RN [address] [place] [address] Specialty [place] Hydraulic Press Operator Hematology/Oncology 09/09/21 Automotive Electrician Relationship Specialty Start Date End Date Milton Mancini MD [address] [place] [address] PCP - General Family Medicine 01/21/19 Yolie Crouch [place] [address] [place] [address] Specialty [place] Hydraulic Press Operator Radiation Oncology 10/08/18 Annette Barton, RN [address] [place] [address] Specialty [place] Hydraulic Press Operator Hematology/Oncology 09/09/21 Automotive Electrician Relationship Specialty Start Date End Date Milton Mancini MD [address] [place] [address] PCP - General Family Medicine 01/21/19 Yolie Crouch, [place] [address] [place] [address] Specialty [place] Hydraulic Press Operator Radiation Oncology 10/08/18 Annette Barton, RN [address] [place] [address] Specialty [place] Hydraulic Press Operator Hematology/Oncology 09/09/21 Automotive Electrician Relationship Specialty Start Date End Date Milton Mancini MD [address] [place] [address] PCP - General Family Medicine 01/21/19 Yolie Crouch, [place] [address] [place] [address] Specialty [place] Hydraulic Press Operator Radiation Oncology 10/08/18 Annette Barton, [place] [address] [place] [address] Specialty [place] Hydraulic Press Operator Hematology/Oncology 09/09/21 Automotive Electrician Relationship Specialty Start Date End Date Milton Mancini MD [address] [place] [address] PCP - General Family Medicine 01/21/19 Yolie Crouch, [place] [address] [place] [address] Specialty [place] Hydraulic Press Operator Radiation Oncology 10/08/18 Annette Barton, RN [address] [place] [address] Specialty [place] Hydraulic Press Operator Hematology/Oncology 09/09/21 Automotive Electrician Relationship Specialty Start Date End Date Milton Mancini MD [address] [place] [address] PCP - General Family Medicine 01/21/19 Yolie Crouch, [place] [address] [place] [address] Specialty [place] Hydraulic Press Operator Radiation Oncology 10/08/18 Annette Barton, [place] [address] [place] [address] Specialty [place] Hydraulic Press Operator Hematology/Oncology 09/09/21 Mario Melton, RN Specialty [place] Hydraulic Press Operator Hematology/Oncology 11/10/22 Automotive Electrician Relationship Specialty Start Date End Date Milton Mancini MD [address] [place] [address] PCP - General Family Medicine 01/21/19 Yolie Crouch, [place] [address] [place] [address] Specialty [place] Hydraulic Press Operator Radiation Oncology 10/08/18 Annette Barton RN [address] [place] [address] Specialty [place] Hy[employer]ulic Press Operator Hematology/Oncology 09/09/21 Mario Melton, RN Specialty [place] Hydraulic Press Operator Hematology/Oncology 11/10/22 Automotive Electrician Relationship Specialty Start Date End Date Milton Mancini MD [address] [place] [address] PCP - General Family Medicine 01/21/19 Yolie Crouch, [place] [address] [place] [address] Specialty [place] Hydraulic Press Operator Radiation Oncology 10/08/18 Annette Barton, [place] [address] [place], [place] [address] Specialty [place] Hydraulic Press Operator Hematology/Oncology 09/09/21 Mario Melton, RN Specialty [place] Hydraulic Press Operator Hematology/Oncology 11/10/22 Team Status: Active Member Role Status Dates John Mendes DO Primary Care Provider Active Team Status: Inactive Member Role Status Dates John Mendes , Primary Care Provider Active Chinedu Mena Jr, MD Emergency Provider Active Team Status: Inactive Member Role Status Dates John Mendes , Attending Provider Active John Mendes , Primary Care Provider Active Automotive Electrician Relationship Specialty Start Date End Date Milton Mancini MD [address] [place] [address] PCP - General Family Medicine 01/21/19 [place] [address] [place] [address] Specialty [place] Hydraulic Press Operator Radiation Oncology 10/08/18 Annette Barton, RN [address] [place] [address] Specialty [place] Hy[employer]ulic Press Operator Hematology/Oncology 09/09/21 Mario Melton, RN Specialty [place] Hydraulic Press Operator Hematology/Oncology 11/10/22 Automotive Electrician Relationship Specialty Start Date End Date Milton Mancini MD [address] [place] [address] PCP - General [facility] 01/21/19 Yolie Crouch, [place] [address] [place] [address] Specialty [place] Hydraulic Press Operator Radiation Oncology 10/08/18 Annette Barton, [place] [address] [place] [address] Specialty [place] Hydraulic Press Operator Hematology/Oncology 09/09/21 Mario Melton, RN Specialty [place] Hydraulic Press Operator Hematology/Oncology 11/10/22 Automotive Electrician Relationship Specialty Start Date End Date Milton Mancini MD [address] [place] [address] PCP - General Family Medicine 01/21/19 Yolie Crouch, [place] [address] [place] [address] Specialty [place] Hydraulic Press Operator Radiation Oncology 10/08/18 Annette Barton RN [address] [place] [address] Specialty [place] Hydraulic Press Operator Hematology/Oncology 09/09/21 Mario Melton, LAVERNE Specialty [place] Hydraulic Press Operator Hematology/Oncology 11/10/22 Automotive Electrician Relationship Specialty Start Date End Date Milton Mancini MD [address] [place] [address] PCP - General Family Medicine 01/21/19 Yolie Crouch, [place] [address] [place] [address] Specialty [place] Hydraulic Press Operator Radiation Oncology 10/08/18 Annette Barton RN [address] [place] [address] Specialty [place] Hydraulic Press Operator Hematology/Oncology 09/09/21 Mario Melton, RN Specialty [place] Hydraulic Press Operator Hematology/Oncology 11/10/22 Automotive Electrician Relationship Specialty Start Date End Date Milton Mancini MD [address] [place] [address] PCP - General Family Medicine 01/21/19 [place] [address] [place] [id number] Specialty [place] Hydraulic Press Operator Radiation Oncology 10/08/18 Annette Barton RN [address] [place] [address] Specialty [place] Hydraulic Press Operator Hematology/Oncology 09/09/21 Mario Melton, RN Specialty [place] Hy[employer]ulic Press Operator Hematology/Oncology 11/10/22 Automotive Electrician Relationship Specialty Start Date End Date Milton Mancini MD [address] [place] [address] PCP - General Family Medicine 01/21/19 Yolie Crouch, [place] [address] [place] [address] Specialty [place] Hydraulic Press Operator Radiation Oncology 10/08/18 Annette Barton, [place] [address] [place] [address] Specialty [place] Hydraulic Press Operator Hematology/Oncology 09/09/21 Mario Melton, RN Specialty [place] Hydraulic Press Operator Hematology/Oncology 11/10/22 Automotive Electrician Relationship Specialty Start Date End Date Milton Mancini MD [address] [place] [address] PCP - General Family Medicine 01/21/19 [place] [address] [place] [address] Specialty [place] Hydraulic Press Operator Radiation Oncology 10/08/18 Annette Barton RN [address] [place] [address] Specialty [place] Hydraulic Press Operator Hematology/Oncology 09/09/21 Mario Melton, RN Specialty [place] Hydraulic Press Operator Hematology/Oncology 11/10/22 Automotive Electrician Relationship Specialty Start Date End Date Milton Mancini MD [address] [place] [address] PCP - General Family Medicine 01/21/19 [place] [address] [place] [address] Specialty [place] Hy[employer]ulic Press Operator Radiation Oncology 10/08/18 Annette Barton, RN [address] [place], [place] [address] Specialty [place] Hy[employer]ulic Press Operator Hematology/Oncology 09/09/21 Mario Melton, RN Specialty [place] Hydraulic Press Operator Hematology/Oncology 11/10/22 Automotive Electrician Relationship Specialty Start Date End Date Milton Mancini MD [address] [place] [address] PCP - General Family Medicine 01/21/19 Yolie Crouch, [place] [address] [place] [address] Specialty [place] Hydraulic Press Operator Radiation Oncology 10/08/18 Annette Barton, [place] [address] [place] [address] Specialty [place] Hydraulic Press Operator Hematology/Oncology 09/09/21 Mario Melton, LAVERNE Specialty [place] Hydraulic Press Operator Hematology/Oncology 11/10/22 Automotive Electrician Relationship Specialty Start Date End Date John Mendes Sr., DO [address] [place] [address] PCP - General Family Medicine 08/31/23 Yolie Crouch, [place] [address] [place] [address] Specialty [place] Hydraulic Press Operator Radiation Oncology 10/08/18 Mario Melton, LAVERNE Specialty [place] Hydraulic Press Operator Hematology/Oncology 11/10/22 Automotive Electrician Relationship Specialty Start Date End Date John Mendes Sr., DO [address] [place] [address] PCP - General Family Medicine 08/31/23 Mario Melton, RN Specialty [place] Hy[employer]ulic Press Operator Hematology/Oncology 11/10/22 Automotive Electrician Relationship Specialty Start Date End Date John Mendes Sr., DO [address] [place] [address] PCP - General Family Medicine 08/31/23 Mario Melton, RN Specialty [place] Hy[employer]ulic Press Operator Hematology/Oncology 11/10/22 Automotive Electrician Relationship Specialty Start Date End Date Milton Mancini MD [address] [place] [phone] PCP - General Family Medicine 01/21/19 08/30/23 John Mendes Sr., DO [address] [place] [address] PCP - General Family Medicine 08/31/23 [place] [address] [place] [address] Specialty [place] Hydraulic Press Operator Radiation Oncology 10/08/18 09/19/23 Annette Barton, RN [address] [facility] [place] [address] Specialty [place] Hy[employer]ulic Press Operator Hematology/Oncology 09/09/21 08/27/23 Mario Melton, RN Specialty [place] [employer] Hy[employer]ulic Press Operator Hematology/Oncology 11/10/22 Automotive Electrician Relationship Specialty Start Date End Date John Mendes Sr., DO [address] [place] [address] PCP - General Family Medicine 08/31/23 Mario Melton, LAVERNE Specialty [place] [employer] Operator Hematology/Oncology 11/10/22 Automotive Electrician Relationship Specialty Start Date End Date John Mendes Sr., DO [address] [place] [address] PCP - General Family Medicine 08/31/23 Mario Melton, RN Specialty [place] [employer] Operator Hematology/Oncology 11/10/22 Automotive Electrician Relationship Specialty Start Date End Date John Mendes Sr., DO [address] [place] [address] PCP - General Family Medicine 08/31/23 Mario Melton, RN Specialty [place] [employer] Operator Hematology/Oncology 11/10/22 Automotive Electrician Relationship Specialty Start Date End Date John Mendes Sr., DO [address] [place] [address] PCP - General Family Medicine 08/31/23 Mario Melton, RN Specialty [place] [employer] Operator Hematology/Oncology 11/10/22 Automotive Electrician Relationship Specialty Start Date End Date John Mendes Sr., DO [address] [place] [address] PCP - General Family Medicine 08/31/23 Mario Melton, RN Specialty [place] [employer] Operator Hematology/Oncology 11/10/22 Automotive Electrician Relationship Specialty Start Date End Date John Mendes Sr., DO [address] [place] [address] PCP - General Family Medicine 08/31/23 Mario Melton, RN Specialty [place] [employer] Operator Hematology/Oncology 11/10/22 Automotive Electrician Relationship Specialty Start Date End Date John Mendes Sr., DO [address] [place] [address] PCP - General Family Medicine 08/31/23 Mario Melton, RN Specialty [place] [employer] Operator Hematology/Oncology 11/10/22 Automotive Electrician Relationship Specialty Start Date End Date John Mendes Sr., DO [address] [place] [address] PCP - General Family Medicine 08/31/23 Mario Melton, RN Specialty [place] [employer] Operator Hematology/Oncology 11/10/22 Automotive Electrician Relationship Specialty Start Date End Date John Mendes Sr., DO [address] [place] [address] PCP - General Family Medicine 08/31/23 Mario Melton, RN Specialty [place] [employer] Operator Hematology/Oncology 11/10/22 Automotive Electrician Relationship Specialty Start Date End Date John Mendes Sr., DO [address] [place] [address] PCP - General Family Medicine 08/31/23 Mario Melton, RN Specialty [place] [employer] Operator Hematology/Oncology 11/10/22 Automotive Electrician Relationship Specialty Start Date End Date John Mendes Sr., DO [address] [place] [address] PCP - General Family Medicine 08/31/23 Mario Melton, RN Specialty [place] [employer] Operator Hematology/Oncology 11/10/22 Automotive Electrician Relationship Specialty Start Date End Date John Mendes Sr., DO [address] [place] [address] PCP - General Family Medicine 08/31/23 Mario Melton, RN Specialty [place] [employer] Operator Hematology/Oncology 11/10/22 Automotive Electrician Relationship Specialty Start Date End Date John Mendes Sr., DO [address] [place] [address] PCP - General Family Medicine 08/31/23 Mario Melton, RN Specialty [place] [employer] Operator Hematology/Oncology 11/10/22 Automotive Electrician Relationship Specialty Start Date End Date John Mendes Sr., DO [address] [place] [address] PCP - General Family Medicine 08/31/23 Mario Melton, RN Specialty [place] [employer] Operator Hematology/Oncology 11/10/22 Automotive Electrician Relationship Specialty Start Date End Date John Mendes Sr., DO [address] [place] [address] PCP - General Family Medicine 08/31/23 Mario Melton, RN Specialty [place] [employer] Operator Hematology/Oncology 11/10/22 Automotive Electrician Relationship Specialty Start Date End Date John Mendes Sr., DO [address] [place] [address] PCP - General Family Medicine 08/31/23 Mario Melton, RN Specialty [place] [employer] Operator Hematology/Oncology 11/10/22 Automotive Electrician Relationship Specialty Start Date End Date John Mendes Sr., DO [address] [place] [address] PCP - General Family Medicine 08/31/23 Mario Melton, RN Specialty [place] [employer] Operator Hematology/Oncology 11/10/22 Automotive Electrician Relationship Specialty Start Date End Date John Mendes Sr., DO [address] [place] [address] PCP - General Family Medicine 08/31/23 Mario Melton, RN Specialty [place] [employer] Operator Hematology/Oncology 11/10/22 Automotive Electrician Relationship Specialty Start Date End Date John Mendes Sr., DO [address] [place] [address] PCP - General Family Medicine 08/31/23 Mario Melton, RN Specialty [place] [employer] Operator Hematology/Oncology 11/10/22 Automotive Electrician Relationship Specialty Start Date End Date John Mendes Sr., DO [address] [place] [address] PCP - General Family Medicine 08/31/23 Mario Melton, RN Specialty [place] [employer] Operator Hematology/Oncology 11/10/22 Automotive Electrician Relationship Specialty Start Date End Date John Mendes Sr., DO [address] [place] [address] PCP - General Family Medicine 08/31/23 Mario Melton, RN Specialty [place] [employer] Operator Hematology/Oncology 11/10/22 Automotive Electrician Relationship Specialty Start Date End Date John Mendes Sr., DO [address] [place] [address] PCP - General Family Medicine 08/31/23 Mario Melton, RN Specialty [place] [employer] Operator Hematology/Oncology 11/10/22 Automotive Electrician Relationship Specialty Start Date End Date John Mendes Sr., DO [address] [place] [address] PCP - General Family Medicine 08/31/23 Mario Melton RN Specialty [place] [employer] Operator Hematology/Oncology 11/10/22 Automotive Electrician Relationship Specialty Start Date End Date John Mendes Sr., DO [address] [place] [address] PCP - General Family Medicine 08/31/23 Mario Melton RN Specialty [place] [employer] Operator Hematology/Oncology 11/10/22 Automotive Electrician Relationship Specialty Start Date End Date John Mendes Sr., DO [address] [place] [address] PCP - General Family Medicine 08/31/23 Mario Melton RN Specialty [place] [employer] Operator Hematology/Oncology 11/10/22 Goals (unrecognized section and content) Goals may be documented in a n alternate sectionGoals may be documented in an alternate section FOR RECORDS PERTAINING TO PATIENTS WHO ARE OR HAVE BEEN ENROLLED IN A CHEMICAL DEPENDENCY/SUBSTANCEABUSE PROGRAM, SOME INFORMATION MAY BE OMITTED. This clinical summary was aggregated from multiple sources. Caution should be exercised in using it in the provision of clinical care. This summary normalizes information from multiple sources, and as a consequence, information in this document may materially change the coding, format and clinical context of patient data. In addition, data may be omitted in some cases. CLINICAL DECISIONS SHOULD BE BASED ON THE PRIMARY CLINICAL RECORDS. [facility] [employer], [facility]. provides no warranty or guarantee of the accuracy or completeness of information in this document.
--- NOTE | 2024-01-29 09:18 | P.DS_ITS ---
DS: Providers Provider Date of admission: 01/27/24 11:21 Primary care physician: YANN BOYER Consults: 01/27/24 Consult to Dietitian Routine Reason for consultation: Poor nutrition 01/27/24 11:15 Consult to Dietitian Routine Reason for consultation: tube feeds Has provider been notified: No Occupational Therapy Eval and Treat Routine Reason for consultation: Only if needed for Rehab Has provider been notified: No Physical Therapy Eval and Treat Routine Reason for consultation: Eval and Treat Has provider been notified: No DS: Diagnosis Discharge Diagnosis (1) Acute infective exacerbation of chronic obstructive airway disease: (2) History of myocardial infarction: (3) Hx of hypotension: (4) Dysphagia, oropharyngeal phase: (5) Hypothyroidism: (6) Gastro-esophageal reflux: (7) History of thyroid cancer: Plan Admission findings: Tachycardia, respiratory distress, acute hypoxia with O2 saturation of 89% on 2 L. Hypotension with blood pressure 96/69, leukocytosis, chest x-ray abnormal with bilateral infiltrates in the lower lobes. Consistent with possible early pneumonia causing acute exacerbation of COPD and severe sepsis. Severe sepsis-tachycardia, respiratory distress, hypoxia, leukocytosis-lactate pending, secondary to acute exacerbation of COPD secondary to healthcare acquired bilateral lower lobe pneumonia. Overall somewhat improved today although white blood cell count is persistently elevated. Stable at the time of discharge, able to wean off of supplemental oxygen Leukocytosis-is likely secondary to the pneumonia as outlined above monitor [id number] improved, likely related to the infectious process and steroids. Monitor as an outpatient Elevated BUN consistent with mild dehydration-IV fluids-maintain these. Stable Elevated liver function test-this is likely related to her overall generalized illness. Improving at the time of discharge History of thyroid cancer unable to swallow and decrease gastric motility- continuous tube feeds, will make patient n.p.o., high aspiration risk Iron deficiency anemia-monitor daily. Concerning at this point due to mild dehydration, will likely have decreasing hemoglobin significantly tomorrow. Continue to monitor as an outpatient Hypothyroidism-check TSH. With tachycardia likely related to the sepsis, could not rule out thyroid induced tachycardia as well will check on levels today- added increased dose of Cytomel Insomnia-continue with home medications CODE STATUS-verbal report of DNR-cc - A-will verify later today. Essential tremor-we will add Mysoline and beta-mariella. Does seem improved with the addition of the Mysoline Admission status: Patient with healthcare acquired pneumonia resulting in severe sepsis and acute exacerbation of COPD-medically necessary treatment will span 2 midnights. Inpatient status. ? ? DS: Summary Hospital Course Hospital Course: Patient presented to the emergency room from her facility, increasing shortness of breath and is severe hypoxia. Patient found to have acute exacerbation of COPD with acute hypoxic respiratory failure. She was not taking supplemental oxygen at her facility. She was placed on supplemental oxygen here steroids, antibiotics, frequent aerosol treatments. Her breathing did improve throughout the hospitalization. She has been able to be weaned off of her supplemental oxygen today. Only significant finding is her leukocytosis is persisting which is likely related to the infectious process as well as the use of steroids. Patient feels comfortable going back to her facility. Only other issue is her tremor. She was started on Mysoline and beta-blockers. So far that seems to be improving but not resolving with situation. Nutritional status continued needs to be addressed at the [facility]. Medications see list. Follow-up with philipp frank at rehab facility Status at Discharge Overall status at discharge: patient is not back to baseline Time Spent with Patient Time attestation: Total time spent providing and/or coordinating discharge services: Time spent: greater than 30 minutes Exam Constitutional Vital Signs, click to edit/add: Last Vital Signs Temp 97.5 F L 01/29/24 08:00 Pulse 107 H 01/29/24 08:00 Resp 18 01/29/24 08:00 BP 146/87 H 01/29/24 08:00 Pulse Ox 94 L 01/29/24 08:00 O2 Del Method Room Air 01/29/24 08:00 O2 Flow Rate 2 01/28/24 23:54 Documenting provider has reviewed patient's vital signs: yes Common normals: apparent distress (Mild distress distress-more general anxiety than the breathing today) Respiratory Common normals: normal respiratory effort (Moderate respiratory distress with moderate conversational dyspnea); not clear to ascultation bilaterally Effort & inspection: tachypneic and prolonged expiratory phase Auscultation: rhonchi (Much improved from admission, minimal rhonchi), wheezes and diminished lung sounds Cardio Common normals: regular rhythm; irregular rate Rate: tachycardic GI Common normals: negative for Normal to inspection, nondistended, normoactive bowel sounds present (Feeding tube in place) Extremity Common normals: full ROM, normal capillary refill, no clubbing, cyanosis or edema and no calf tenderness Neuro Common normals: oriented x3, CN's II-XII intact bilaterally and moves all extremities Psych Attitude: not calm DS: Data Data Completed and Pending Labs on day of discharge: Labs from last 24 hours 01/29/24 06:15 WBC 21.9 H RBC 3.14 L Hgb 8.9 L Hct 27.8 L MCV 88.5 MCH 28.3 MCHC 32.0 RDW 17.5 H Plt Count 286 MPV 9.2 L Seg Neuts % (Manual) 92.0 H Lymphocytes % (Manual) 6.0 L Monocytes % (Manual) 2.0 Eosinophils % (Manual) 0.0 L Basophils % (Manual) 0.0 L Neutrophils # (Manual) 20.14 H Lymphocytes # (Manual) 1.31 Monocytes # (Manual) 0.43 Eosinophils # (Manual) 0.00 Basophils # (Manual) 0.00 Sodium 136 Potassium 3.7 Chloride 99 Carbon Dioxide 28.6 Anion Gap 12.1 BUN 29.0 H Creatinine 0.81 Est GFR ( Amer) >60 Est GFR (Non-Af Amer) >60 BUN/Creatinine Ratio 35.8 Glucose 123 H Calcium 8.3 L Total Bilirubin 0.5 AST 16 ALT 52 Alkaline Phosphatase 120 H Total Protein 5.3 L Albumin 2.4 L Globulin 2.9 Albumin/Globulin Ratio 0.8 Preliminary micro results at discharge 01/27/24 11:54 - Preliminary Blood NO GROWTH AT 36-48 HOURS. FINAL TO FOLLOW. 01/27/24 11:45 Blood Culture Result 1 - Preliminary Blood NO GROWTH AT 36-48 HOURS. FINAL TO FOLLOW. Discharge Plan Discharge Disposition: Xfer SNF Discharge Medications: New primidone 50 mg Tablet 50 mg J-tube BID Qty: 60 11RF levalbuterol HCl 0.63 mg/3 mL Solution For Nebulization 0.63 mg inhalation Q2H PRN (Reason: Wheezing) Qty: 90 11RF liothyronine 5 mcg Tablet 10 mcg J-tube QD@0630 Qty: 60 11RF guaifenesin 100 mg/5 mL Liquid 400 mg J-tube Q6H Qty: 1500 11RF ipratropium bromide 0.02 % Solution 0.5 mg inhalation Q6H Qty: 150 11RF metoprolol tartrate 25 mg Tablet 25 mg J-tube BID@0600,1800 Qty: 60 11RF prednisone 10 mg tablet 50 mg PO DAILY Qty: 47 0RF Rx Instructions: 5/day for 3 days. 4/day for 3 days, 3/day for 3 days, 2/day for 3 days, 1/day for 3 days, 1/2 /day for 4 days levofloxacin 500 mg tablet 500 mg feeding tube DAILY 10 Days Qty: 10 0RF Continued albuterol sulfate 2.5 mg /3 mL (0.083 %) solution for nebulization 2.5 mg inhalation Q4H PRN (Reason: shortness of breath or wheezing) lorazepam 0.5 mg tablet 0.5 mg PO Q6H PRN (Reason: anxiety) escitalopram oxalate 5 mg/5 mL solution 10 mg feeding tube DAILY levothyroxine 112 mcg tablet 112 mcg feeding tube DAILY metoclopramide HCl 5 mg tablet 10 mg feeding tube ACHS mirtazapine 7.5 mg tablet 7.5 mg feeding tube BEDTIME ondansetron 4 mg tablet,disintegrating 4 mg PO Q8H PRN (Reason: nausea and vomiting) prednisone 5 mg tablet 5 mg feeding tube .QHS cetirizine 5 mg tablet 5 mg feeding tube Q12H PRN (Reason: allergy symptoms) bisacodyl 10 mg suppository 10 mg NM DAILY PRN (Reason: constipation) ibuprofen 600 mg tablet 600 mg PO Q6H PRN (Reason: pain) prednisone 10 mg tablet 10 mg PO DAILY prochlorperazine maleate [Compazine] 5 mg tablet 5 mg PO Q6H PRN (Reason: nausea and vomiting) acetaminophen 325 mg tablet 650 mg PO Q6H PRN (Reason: pain) lidocaine HCl 2 % gel 1 applic topical Q4H PRN (Reason: pain) Rx Instructions: ON J-TUBE SITE Discontinued cephalexin 500 mg capsule 500 mg PO BID Patient Comments: 01/23/24-9-07-22 J-TUBE INFECTION midodrine 5 mg tablet 5 mg feeding tube TID Rx Instructions: do not give last dose of day after 6PM or within 4 hrs of bedtime Print Language: Maltese Forms: Portal Instructions Follow Up Appointments: Follow up with physician at [facility]
[2024-01-29] MEDS: LEVOFLOXACIN IN DEXTROSE 5 % 750 MG/150 ML PREMIX 100 MG IV (09:41)
[2024-01-29] MEDS: LEVALBUTEROL HCL 0.63 MG/3 ML VIAL.NEB IH (11:05)
[2024-01-29] MEDS: BUDESONIDE 0.5 MG/2 ML AMPULE NEB IH (11:05)
[2024-01-29] MEDS: IPRATROPIUM BROMIDE 0.5 MG/2.5 ML VIAL.NEB IH (11:05)
--- NOTE | 2024-01-29 11:12 | PC.NURSE ---
Staining Machine Operator attempted to call [facility] to give report. Someone answered and was transferring to the nurse but no one answered. Staining Machine Operator attempted to call another 4 or 5 times and no one answered. Staining Machine Operator left voicemail stating the reason for caalling and to have staff call this senior technical writer when they are available for report.
== END 2024-01-29 11:52 | DRG 871 ==
LOC: ER 10:21 → MS 01-29 08:52
PROVIDERS: Admitting Provider Family Medicine; Emergency Provider Emergency Medicine Emergency Medical Services; PCP Family Medicine; Visit Provider Family Medicine
DX: A41.9 Sepsis, unspecified organism (principal); J18.9 Pneumonia, unspecified organism; J96.01 Acute respiratory failure with hypoxia; J44.0 Chronic obstructive pulmonary disease with (acute) lower respiratory infection; J44.1 Chronic obstructive pulmonary disease with (acute) exacerbation; R64 Cachexia; Z68.1 Body mass index [BMI] 19.9 or less, adult; R65.20 Severe sepsis without septic shock; Y95 Nosocomial condition; E86.0 Dehydration; R79.89 Other specified abnormal findings of blood chemistry; Z85.850 Personal history of malignant neoplasm of thyroid; E03.9 Hypothyroidism, unspecified; Z79.890 Hormone replacement therapy; D50.9 Iron deficiency anemia, unspecified; G47.00 Insomnia, unspecified; R25.1 Tremor, unspecified; I25.2 Old myocardial infarction; R13.12 Dysphagia, oropharyngeal phase; Z93.1 Gastrostomy status; K21.9 Gastro-esophageal reflux disease without esophagitis; Z66 Do not resuscitate
CPT/HCPCS: 36415; 71045; 76700; 80053; 81001; 83605; 83735; 83880; 84436; 84443; 84481; 84484; 85007; 85025; 85027; 87040; 87070; 87086; 87420; 87804; 87811; 93005; 94640; 94667; 94668; 94761; 96365; 96366; 96367; 96368; 96375; 96376; 97161; 97530; 99285; G0328; J0360; J2060; J2405; J2543; J2919; J3370